=== PATIENT | male | born 1935 | race Caucasian/White ===

== ENCOUNTER 2017-07-11 15:36 | Inpatient (IN) | payer MEDICARE, OTHER, SELFPAY ==
[2017-07-11] VITALS (8 sets, daily range): BP systolic 112–128; BP diastolic 76–89; PULSE 58–86; RESP 19–30; TEMP 36.6–36.8; O2SAT 92–94; BMI 38.4
--- NOTE | 2017-07-11 16:20 | RAD_ITS ---
STUDY: X-RAY CHEST REASON FOR EXAM: Male, 82 years old. Productive cough with rales. History of pulmonary fibrosis. TECHNIQUE: Frontal and lateral views of the chest. COMPARISON: June 03, 2017 FINDINGS: There is a patchy opacity in the right upper lobe compatible with pneumonia. There is stable elevation of the right hemidiaphragm with atelectasis and hyperexpansion of the left lung unchanged. There is no demonstrated pleural abnormality. There is stable cardiomegaly with sternotomy wires and cardiac pacer. Normal mediastinum and zhao. Normal visualized pulmonary arteries. There is atherosclerotic calcification of the aortic arch with tortuosity unchanged. There are diffuse degenerative changes of the visualized thoracic spine. Normal visualized ribs, clavicles, and shoulders. There is no demonstrated abnormality of the visualized soft tissue structures of the upper abdomen. RAD/Chest PA and Lateral IMPRESSION: Stable cardiomegaly, elevation of the left hemidiaphragm with atelectasis and hyperexpansion of the left lung. New right upper lobe opacity compatible with pneumonia. Electronically Signed: Bhupendra Hodge MD at 16:40 EST , Service support ,
--- NOTE | 2017-07-11 16:31 | ED.VISSUMM ---
- ER Visit Summary Date of Service: 07/11/17 Chief Complaint: Increased shortness of breath History of Present Illness: The patient is a 82 M is admitted prior to [place] for respiratory distress and diagnosed with rhinovirus. He was discharged home on oxygen. He does have significant pulmonary fibrosis and his certified rehabilitation counselor Dr. Jed Davis. He does complain of cough, which is productive of white colored sputum. He denies any fever, chills night sweats. He denies any visual, ocular or auditory symptoms. He denies sore throat, earache or rhinorrhea. He denies any chest discomfort. He has no GI or symptoms. He denies myalgias or arthralgias. He denies headache or generalized weakness. He is on Coumadin but does not report report bruising easily or problems with bleeding. He is on Coumadin secondary to prior DVT. Past history significant for coronary disease, prostate cancer, type 2 diabetes, hypercholesterolemia, end stage renal disease (stage III), pulmonary hypertension, hypothyroidism and peripheral vascular disease. He is status post four-vessel coronary bypass surgery and prostatectomy. Physical Examination: Patient is tachypnic. He is not hypoxic on oxygen. He is overweight with a BMI of 38.4. HEENT exam is unremarkable. Lungs reveal crackles bilaterally. He informed me that Dr. pelletier stated his lungs were clear on Friday. Heart is regular without murmur, gallop or rub. Abdomen is prominent with positive bowel sounds and no tenderness. He does have mild edema the lower extremities. Neuro exam is nonfocal. Test Results: Two-view chest x-ray was obtained and interpreted by me as unchanged from June 03, 2017. The film is underpenetrated comparison to the film obtained and May. Dual wire pacemaker noted on right. There are sternal wires and multiple clips noted. The film is slightly rotated as well. CBC is unremarkable. BMP is marked for creatinine 1.67. INR is 1.8. Emergency Department Course and Treatment: Will obtain chest x-ray, EKG, and appropriate blood work to evaluate his dyspnea and productive cough. Treatment Plan: I was informed that patient desaturated when he ambulated. He is O2 sat dropped to 87%. Since he is chronically on oxygen he was instructed increased from 3 L to 5 L with activity. Disposition: Discharged to home with spouse Impression: Dyspnea on exertion secondary to recent pulmonary infection History of coronary disease History of end-stage renal disease, stage III History of obstructive sleep apnea History of pulmonary hypertension History of diabetes, type II This note was generated with Kiio dictation software. It may contain incorrect words, spelling, and punctuation that were not noted in review of the chart prior to signing ED Disposition - Plan for ED Patient: Disposition: Home or Assisted Living Chief Complaint: Shortness of Breath Instructions: ED Dyspnea Shortness of Breath Referrals: Fast,Anna, DO [Primary Care Provider] - 3-5 Days if not improving Additional Instructions: Increase oxygen from 3 L at rest to 5 L with activity
[2017-07-11 16:34] LABS: International Normalized Ratio 1.8; Prothrombin Time (Protime)PT. 19.9 SECONDS (11.7-14.9)
--- NOTE | 2017-07-11 16:36 | ED.DCSUM_ITS ---
- ER Visit Summary Date of Service: 07/11/17 Chief Complaint: Increased shortness of breath History of Present Illness: The patient is a 82 M is admitted prior to [place] for respiratory distress and diagnosed with rhinovirus. He was discharged home on oxygen. 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 Jed Davis. He does complain of cough, which is productive of white colored sputum. He denies any fever, chills night sweats. He denies any visual, ocular or auditory symptoms. He denies sore throat, earache or rhinorrhea. He denies any chest discomfort. He has no GI or symptoms. He denies myalgias or arthralgias. He denies headache or generalized weakness. He is on Coumadin but does not report report bruising easily or problems with bleeding. He is on Coumadin secondary to prior DVT. Past history significant for coronary disease, prostate cancer, type 2 diabetes , hypercholesterolemia, end stage renal disease (stage III), pulmonary hypertension, hypothyroidism and peripheral vascular disease. He is status post four-vessel coronary bypass surgery and prostatectomy. Physical Examination: Patient is tachypnic. He is not hypoxic on oxygen. He is overweight with a BMI of 38.4. HEENT exam is unremarkable. Lungs reveal crackles bilaterally. He informed me that Dr. pelletier stated his lungs were clear on Friday. Heart is regular without murmur, gallop or rub. Abdomen is prominent with positive bowel sounds and no tenderness. He does have mild edema the lower extremities. Neuro exam is nonfocal. Test Results: Two-view chest x-ray was obtained and interpreted by me as unchanged from June 03, 2017. The film is underpenetrated comparison to the film obtained and May. Dual wire pacemaker noted on right. There are sternal wires and multiple clips noted. The film is slightly rotated as well. CBC is unremarkable. BMP is marked for creatinine 1.67. INR is 1.8. Emergency Department Course and Treatment: Will obtain chest x-ray, EKG, and appropriate blood work to evaluate his dyspnea and productive cough. Treatment Plan: I was informed that patient desaturated when he ambulated. He is O2 sat dropped to 87%. Since he is chronically on oxygen he was instructed increased from 3 L to 5 L with activity. Disposition: Discharged to home with spouse Impression: Dyspnea on exertion secondary to recent pulmonary infection History of coronary disease History of end-stage renal disease, stage III History of obstructive sleep apnea History of pulmonary hypertension History of diabetes, type II This note was generated with Precipio dictation software. It may contain incorrect words, spelling, and punctuation that were not noted in review of the chart prior to signing ED Disposition - Plan for ED Patient: Disposition: Home or Assisted Living Chief Complaint: Shortness of Breath Instructions: ED Dyspnea Shortness of Breath Referrals: Fast,Anna, DO [Primary Care Provider] - 3-5 Days if not improving Additional Instructions: Increase oxygen from 3 L at rest to 5 L with activity
[2017-07-11 18:09] LABS: Absolute Lymphocyte Count 1.66 X10^3/ul (0.83-4.51); Absolute Neutrophil Count 6.3 X10^3/uL (2.0-7.7); Basophil# 0.01 X10^3/uL; Basophil% 0.1 % (0-1); Eosinophil# 0.04 X10^3/uL; Eosinophils% 0.4 % (0-5); Hematocrit 42.9 % (40-54); Hemoglobin 13.5 g/dl (13.0-16.5); Lymphocyte # 1.66 X10^3/ul (4.0); Lymphocyte % 18.7 % (19-41); Mean Corp Hgb Conc 31.5 g/gl (32-36); Mean Corpuscular Hgb 28.4 pg (27.0-32.0); Mean Corpuscular Volume 90.3 fL (80-94); Mean Platelet Vol. 10.8 fl (6.2-12.0); Monocyte# 0.77 X10^3/uL; Monocyte% 8.7 % (0-10); Neutrophil # 6.33 X10^3/uL (2.7-7.7); Neutrophil % 71.2 % (47-70); POSITIVE COUNT NO; POSITIVE DIFFERENTIAL NO; POSITIVE MORPHOLOGY NO; Platelet Count 116 K/mm3 (150-450); RBC Distribution Width CV 16.4 % (11.6-14.6); RBC Distribution Width SD 54.6 fl (35.1-43.9); Red Blood Count 4.75 M/mm3 (4.6-6.2); White Blood Count 8.9 K/mm3 (4.4-11.0)
[2017-07-11 18:17] LABS: Anion Gap 6 (5-15); BUN 31 mg/dL (7-18); BUN/Creat Ratio 18.6 RATIO (10-20); Calcium,Total 8.3 mg/dL (8.5-10.1); Chloride 103 mmol/L (98-107); Creatinine, Serum 1.67 mg/dL (0.70-1.30); EST Glomerular Filtration Rate 42 mL/min (>60); Est Glom Filt Rate - Afr Amer 51 mL/min (>60); Estimated Creatinine Clearance 31.84 ml/min; Glucose 100 mg/dL (70-110); Sodium Level 139 mmol/L (136-145)
--- NOTE | 2017-07-11 19:28 | NURSING ---
[PT ASSISTED UP TO THE BEDSIDE TO URINATE IN URINAL, PT SOB WORSENED AND O2 SAT DROPPED TO 86%. DR. VELAZQUEZ AWARE
--- NOTE | 2017-07-11 22:33 | PCM.HP.STD ---
Problem List (1) SOB (shortness of breath) Status: Acute (2) Acute exacerbation of chronic obstructive pulmonary disease Status: Acute (3) Anemia of chronic renal failure, stage 3 (moderate) Status: Acute (4) Rhinovirus Status: Acute (5) Supratherapeutic INR Status: Acute (6) AICD (automatic cardioverter/defibrillator) present Status: Chronic (7) Benign essential hypertension Status: Chronic History of Present Illness Date of Admission: 07/11/17 Chief Complaint: Hypoxic respiratory failure The patient is a 82 year old male w/ past history significant for coronary disease, prostate cancer, type 2 diabetes, hypercholesterolemia, end stage renal disease (stage III), pulmonary hypertension, hypothyroidism and peripheral vascular disease, status post four-vessel coronary bypass surgery and prostatectomy admitted for hypoxic respiratory failure. He was admitted in May for rhinovirus and was discharged home on home oxygen. He has been doing well until a few days ago when he noted worsening SOB. His cough has been unchange and is minimal. SOB has been constant. SOB is severe that it interfered with his ADLs. Nothing made it better or worse. He went to the ED for further workup. Past Medical History Past Medical History (Chronic Problems): Chronic Problems Benign essential hypertension (Chronic) Chronic CHF (Chronic) ef=40% COPD (chronic obstructive pulmonary disease) (Chronic) CAD (coronary artery disease) (Chronic) s/p cabg ef=40% negative stress 01/27 History of DVT (deep vein thrombosis) (Chronic) on coumadin Type II diabetes mellitus (Chronic) Hx of CABG (Chronic) History of prostate cancer (Chronic) HLD (hyperlipidemia) (Chronic) Hypothyroidism (Chronic) AICD (automatic cardioverter/defibrillator) present (Chronic) History of total knee replacement (Chronic) Left ALIVIA (obstructive sleep apnea) (Chronic) PVD (peripheral vascular disease) (Chronic) History of Coumadin therapy (Chronic) Allergies amiodarone Adverse Reaction (Verified 07/11/17 15:37) affects his lungs/breathing azithromycin Adverse Reaction (Verified 07/11/17 15:37) Other PATIENT STATES HE LOST HIS HEARING AND HIS HAIR ceftriaxone sodium [From Rocephin] Adverse Reaction (Verified 07/11/17 15:37) Unknown linezolid [From Zyvox] Adverse Reaction (Verified 07/11/17 22:30) decreased platelets morphine Adverse Reaction (Verified 07/11/17 22:30) agitated tramadol Adverse Reaction (Verified 07/11/17 15:37) interferes with another medication he is on Home Medications: Ambulatory Orders Medication Instructions Recorded Albuterol Aerosols [Ventolin 2.5 mg INHALATION Q6H PRN PRN 06/02/17 Aerosols] Aspirin E.C. [Ecotrin] 81 mg PO DAILY@0800 06/02/17 Benzonatate [Tessalon Perle] 100 mg PO QHS 06/02/17 Budesonide/Formoterol 160/4.5 2 puff INHALATION BID 06/02/17 [Symbicort 160/4.5 Mcg Inhaler (SP)] Carvedilol [Coreg] 12.5 mg PO BID 06/02/17 Clotrimazole [Lotrimin] 1 applicatio TOPICAL Q12H PRN PRN 06/02/17 Dronedarone Hydrochloride [Multaq] 400 mg PO BID 06/02/17 Furosemide [Lasix] 20 mg PO QODAY 06/02/17 Levothyroxine [Synthroid] 75 mcg PO SUMOTUWETHFR 06/02/17 Spironolactone [Aldactone] 25 mg PO DAILY 06/02/17 Vilazodone Hydrochloride [Viibryd] 10 mg PO DAILY 06/02/17 Warfarin [Coumadin] 1.25 mg PO SUTUTHSA 06/02/17 Warfarin [Coumadin] 2.5 mg PO MOWEFR 06/02/17 Clotrimazole 10 mg PO 5X/DAY 07/11/17 Levothyroxine [Synthroid] 150 mcg PO SA 07/11/17 Tiotropium [place] [Spiriva 18 MCG] 1 puff INHALATION DAILY 07/11/17 Venlafaxine HCl [Effexor] 20 mg PO DAILY 07/11/17 Surgical History: coronary bypass surgery, total knee arthroplasty - BL, - - 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 Jennings, PCI/stents, AICD placement Psychiatric History: No pertinent psych hx Smoking Status: Never smoker - *Family History Maternal History Items: No pertinent history Paternal History Items: No pertinent history Review of Systems Constitutional: Denies: Chills, Fever, Weight Change HEENT: Denies: Head Aches, Sinus Congestion, Sinus Drainage Cardiovascular: Denies: Chest Pain, Palpitations Respiratory: Reports: Cough, Shortness of Breath, Shortness of breath at rest. Denies: Sputum production Gastrointestinal: Denies: Abdominal Pain, Nausea, Vomiting Genitourinary: Denies: Dysuria Musculoskeletal: Denies: Joint Pain, Joint Tenderness Skin: Denies: Rash, Wounds Neurological: Denies: Numbness, Tingling, Focal weakness Psychiatric: Denies: Anxiety, Depression, Homicidal Ideations, Suicidal Ideations Hematologic/ Lymphatic: Denies: Easy Bruising, Easy Bleeding VTE Information - Inpt Only VTE Present on Admission: No VTE Mechan Device Prophylaxis: SCD's VTE Pharm Prophylaxis ordered?: Yes Patient Problems: Active and Suspected Problems SOB (shortness of breath) (Acute) - Physical Exam General: Alert, Oriented x3, Cooperative HEENT: Atraumatic, PERRLA, EOMI, Normocephalic Neck: Supple, No JVD, Negative Carotid Bruits Lungs: Diminished, Rales Cardiovascular: Regular rate, No murmurs Abdomen: Bowel Sounds Present, Soft, Non Tender Extremities: No edema, Capillary Refill Less than 3 Seconds Skin: No rashes, No breakdown Musculoskeletal: No Tenderness to Palpation of Joints or Extremities Neurological: Cranial nerves II-XII grossly intact Psych/Mental Status: Normal Affect, Appropriate Vital Signs Temp Pulse Resp BP Pulse Ox 98.2 F 61 20 H 124/82 H 94 07/11/17 15:37 07/11/17 20:42 07/11/17 20:42 07/11/17 20:42 07/11/17 20:42 Oxygen Flow Rate 4 Assessment/Plan Active and Suspected Problems SOB (shortness of breath) (Acute) 82 year old male w/ past history significant for coronary disease, prostate cancer, type 2 diabetes, hypercholesterolemia, end stage renal disease (stage III), pulmonary hypertension, hypothyroidism and peripheral vascular disease, status post four-vessel coronary bypass surgery and prostatectomy admitted for hypoxic respiratory failure. 1) Acute on chronic hypoxic respiratory failure: Most likely secondary to COPD exacerbation. Will start steroid, bronchodilators, and oxygen., Will likely need to increase home oxygen. Consulted pulmonary. Cultures pending. 2) DILIA: Hydration. If no improvement, will consider further workup. 3) Afib: C/w coumadin. Rate controlled. 4) Prophylaxis: Protonix / heparin.
[2017-07-11] MEDS: Albuterol 2.5 MG/3 ML VIAL.NEB. INHALATION (22:55)
[2017-07-11] MEDS: Budesonide Respules 0.5 MG/2 ML AMPUL.NEB. INHALATION (22:55)
[2017-07-12] VITALS (8 sets, daily range): BP systolic 112–125; BP diastolic 64–82; PULSE 57–68; RESP 16–20; TEMP 36.3–36.7; O2SAT 93–96
[2017-07-12] MEDS: 0.9% Normal Saline 1,000 ML 75 ML IV (00:02)
[2017-07-12] MEDS: Benzonatate 100 MG Capsule PO ×2 (00:10→20:59)
[2017-07-12] MEDS: guaiFENesin 1,200 MG Tablet 1200 MG PO ×3 (00:10→20:59)
[2017-07-12] MEDS: Carvedilol 12.5 MG Tablet PO ×3 (00:11→20:59)
[2017-07-12 00:37] LABS: Color, Urine Yellow (Yellow); Glucose, Dipstick Normal (Normal); Ketone-Dipstick Negative (Negative); Leukocyte Esterase-Dipstick 25 /ul (Negative); Nitrite-Dipstick Negative (Negative); Occult Blood-Urine Negative /ul (Negative); Protein-Dipstick 15 mg/dl (Negative); Urine Bilirubin Dipstick Negative (Negative); Urine Clarity Clear (Clear); Urine Urobilinogen Normal (Normal)
[2017-07-12] MEDS: Clotrimazole 10 MG Troche MUCOUS MEM ×6 (00:54→21:00)
[2017-07-12] MEDS: Levothyroxine 75 MCG Tablet 150 MCG PO (06:09)
--- NOTE | 2017-07-12 06:30 | RAD_ITS ---
STUDY: X-RAY CHEST REASON FOR EXAM: Male, 82 years old. Shortness of breath and cough. TECHNIQUE: Single AP portable view of the chest. COMPARISON: 11 July 2017 FINDINGS: Right chest port in place with tip overlying the right atrium and right ventricle. Sternotomy wires remain midline. Surgical clips overlie the bilateral mediastinum. Compared to 2016 with 2018 there is increased areas of patchy airspace disease within the bilateral lungs. Right hemidiaphragm eventration remains. There is no demonstrated pleural abnormality. Normal size heart. Normal mediastinum and zhao. Normal visualized pulmonary arteries. Normal visualized aortic arch and descending thoracic aorta. Normal visualized thoracic spine. Normal visualized ribs, clavicles, and shoulders. There is no demonstrated abnormality of the visualized soft tissue structures of the upper abdomen. RAD/Chest PA and Lateral IMPRESSION: Compared to 11 July 2017 there is increased bilateral patchy airspace disease with otherwise unchanged appearance. Electronically Signed: Corona Orosco DO at 7:21 EST , Service support ,
[2017-07-12] MEDS: Albuterol 2.5 MG/3 ML VIAL.NEB. INHALATION ×3 (07:55→19:13)
[2017-07-12] MEDS: Budesonide Respules 0.5 MG/2 ML AMPUL.NEB. INHALATION ×2 (07:55→19:13)
--- NOTE | 2017-07-12 08:06 | PCM.PROGNOTE ---
Patient Problems: Active and Suspected Problems SOB (shortness of breath) (Acute) Subjective: Patient is an 82-year-old male with a past medical history of hypertension, COPD, cardiomyopathy with a 40% ejection fraction, coronary artery disease (see status post CABG), history of DVT, chronic anticoagulation with warfarin, diabetes mellitus type 2, prostate cancer, hyperlipidemia, hypothyroidism, AICD placement, ALIVIA, PVD, chronic renal failure stage III and chronic respiratory failure with hypoxemia. He was admitted to the hospital in May 2017 with rhinovirus (also had MDR E. Coli in his sputum) and acute exacerbation of COPD. He has a percussion vest at home that he uses 3 times a day for 20 minutes. He states he is compliant with CPAP at night. He presented to the ER at [facility] on 07/11/17 c/o increasing SOB. Chest x-ray showed a right upper lobe infiltrate on 07/11/17 and today shows multilobar infiltrates, can not rule out increased vascular congestion. Lab at admission showed a normal white blood cell count at 8.9 with 72% neutrophils. Platelets were low at 116,000 and hemoglobin was 13.5. INR was subtherapeutic at 1.8. Electrolytes were unremarkable and the BUN was 31 with a creatinine of 1.67. 1.67 is within his baseline. He has been afebrile since admission. Currently 93-94% on 4 L nasal cannula at rest. Legionella and streptococcal antigens in the urine were negative. Influenza swab was negative. Respiratory panel is pending. Gram stain of the sputum showed 2+ white blood cells. He denies sore throat, rhinorrhea, watery eyes, myalgias, arthralgias, nausea or diarrhea and sick contacts. He had a twinge of chest pain on the right and a twinge on the left today which were likely brought on by coughing. He is having sputum mixed with blood. - Physical Exam General: Alert, Oriented x3, Cooperative, No apparent distress - while resting in bed. HEENT: Atraumatic, Normocephalic Oral: Moist Mucosa Neck: Supple, No Nodes, No Nuchal Rigidity, Trachea Midline Lungs: No wheeze, Diminished, Rales - coarse and in both lung bases. Not tachypneic and no accessory muscle use while lying in bed, Rhonchi - in the left upper lung posteriorly that cleared after a cough. Cardiovascular: Regular rate, Regular Rhythm, Normal S1, Normal S2, No rub noted, No Gallop, - - Heart sounds are distant-likely secondary to increased AP diameter of the chest related to severe COPD/pulmonary fibrosis Abdomen: Bowel Sounds Present, Soft, Non Tender, Non-Distended, Obese Extremities: No cyanosis, No edema Skin: No rashes Neurological: Cranial nerves II-XII grossly intact, Neuro grossly intact Psych/Mental Status: Normal Affect, Appropriate Vital Signs Temp Pulse Resp BP Pulse Ox 98.1 F 68 16 118/71 94 07/12/17 04:30 07/12/17 04:30 07/12/17 05:00 07/12/17 04:30 07/12/17 04:30 Oxygen Flow Rate 4 Oxygen Delivery Method Nasal Cannula Weight: 238 lb Body Mass Index (BMI) 38.4 Intake and Output for Last 24 Hours 07/10/17 07/11/17 07/12/17 23:59 23:59 23:59 Intake Total 1091 / 1091 Output Total 250 / 250 Balance 841 / 841 Microbiology Past 72 Hours 07/11/17 22:13 Legionella Antigen - Final Urine, Clean Catch 07/11/17 22:13 Streptococcus pneumoniae Antigen (M - Final Urine, Clean Catch 07/11/17 23:00 Influenza Types A,B Direct FA (CAROL) - Final Mucosa - Nasopharyngeal Laboratory Tests Past 24 Hrs 07/11/17 22:13 Urine Color Yellow Urine Clarity Clear Urine pH 5.0 Ur Specific [place] 1.020 Urine Protein 15 H Urine Glucose (UA) Normal Urine Ketones Negative Urine Occult Blood Negative Urine Nitrite Negative Urine Bilirubin Negative Urine Urobilinogen Normal Ur Leukocyte Esterase 25 H Assessment/Plan Active and Suspected Problems SOB (shortness of breath) (Acute) Impressions 1. acute exacerbation COPD - suspect precipitated by Pneumonia...RUL infiltrate on 07/11 and now with increased patchy infiltrates in several lobes BL. BNP only 140. Grew a MDR E. Coli on his last visit. I suspect he is aspirating. 2. multilobar pneumonia - suspect aspiration vs viral....no viral symptoms however. 3. severe COPD 4. pulmonary fibrosis 5. Cardiomyopathy with a 40% EF 6. Chronic respiratory failure with hypoxemia 7. Thrombocytopenia-new, possibly viral? 8. CAD/history of DVT/chronic anticoagulation/diabetes mellitus type 2/prostate cancer/hyperlipidemia/hypothyroidism/AICD placement/ALIVIA/PVD/chronic renal failure stage III and obesity complicate care, management, recovery and prognosis Start Cefepime since the infiltrates are worse and there are 2+ WBC's in the sputum....he had no rash and no adverse reactions to Cefepime at the admission in mid May Continue aerosolized bronchodilators Recheck PT/INR in the a.m.-no adjustment to Coumadin at this time Continue prednisone 40 mg daily since the patient has no wheezing at the present time Consult speech therapy for swallowing evaluation-suspect he needs a modified barium swallow to rule out silent aspiration Will need ambulatory pulse ox to determine O2 requirement prior to discharge Code Visit Inpatient E&M: 37197 Subs Hosp L2
--- NOTE | 2017-07-12 08:21 | PN_ITS ---
Patient Problems: Active and Suspected Problems SOB (shortness of breath) (Acute) Subjective: Patient is an 82-year-old male with a past medical history of hypertension, COPD , cardiomyopathy with a 40% ejection fraction, coronary artery disease (see status post CABG), history of DVT, chronic anticoagulation with warfarin, diabetes mellitus type 2, prostate cancer, hyperlipidemia, hypothyroidism, AICD placement, ALIVIA, PVD, chronic renal failure stage III and chronic respiratory failure with hypoxemia. He was admitted to the hospital in May 2017 with rhinovirus (also had MDR E. Coli in his sputum) and acute exacerbation of COPD. He has a percussion vest at home that he uses 3 times a day for 20 minutes. He states he is compliant with CPAP at night. He presented to the ER at [facility] on 07/11/17 c/o increasing SOB. Chest x-ray showed a right upper lobe infiltrate on 07/11/17 and today shows multilobar infiltrates, can not rule out increased vascular congestion. Lab at admission showed a normal white blood cell count at 8.9 with 72% neutrophils. Platelets were low at 116,000 and hemoglobin was 13.5. INR was subtherapeutic at 1.8. Electrolytes were unremarkable and the BUN was 31 with a creatinine of 1.67. 1.67 is within his baseline. He has been afebrile since admission. Currently 93-94% on 4 L nasal cannula at rest. Legionella and streptococcal antigens in the urine were negative. Influenza swab was negative. Respiratory panel is pending. Gram stain of the sputum showed 2+ white blood cells. He denies sore throat, rhinorrhea, watery eyes, myalgias, arthralgias, nausea or diarrhea and sick contacts. He had a twinge of chest pain on the right and a twinge on the left today which were likely brought on by coughing. He is having sputum mixed with blood. - Physical Exam General: Alert, Oriented x3, Cooperative, No apparent distress - while resting in bed. HEENT: Atraumatic, Normocephalic Oral: Moist Mucosa Neck: Supple, No Nodes, No Nuchal Rigidity, Trachea Midline Lungs: No wheeze, Diminished, Rales - coarse and in both lung bases. Not tachypneic and no accessory muscle use while lying in bed, Rhonchi - in the left upper lung posteriorly that cleared after a cough. Cardiovascular: Regular rate, Regular Rhythm, Normal S1, Normal S2, No rub noted , No Gallop, - - Heart sounds are distant-likely secondary to increased AP diameter of the chest related to severe COPD/pulmonary fibrosis Abdomen: Bowel Sounds Present, Soft, Non Tender, Non-Distended, Obese Extremities: No cyanosis, No edema Skin: No rashes Neurological: Cranial nerves II-XII grossly intact, Neuro grossly intact Psych/Mental Status: Normal Affect, Appropriate Vital Signs Temp Pulse Resp BP Pulse Ox 98.1 F 68 16 118/71 94 07/12/17 04:30 07/12/17 04:30 07/12/17 05:00 07/12/17 04:30 07/12/17 04:30 Oxygen Flow Rate 4 Oxygen Delivery Method Nasal Cannula Weight: 238 lb Body Mass Index (BMI) 38.4 Intake and Output for Last 24 Hours 07/10/17 07/11/17 07/12/17 23:59 23:59 23:59 Intake Total 1091 / 1091 Output Total 250 / 250 Balance 841 / 841 Microbiology Past 72 Hours 07/11/17 22:13 Legionella Antigen - Final Urine, Clean Catch 07/11/17 22:13 Streptococcus pneumoniae Antigen (M - Final Urine, Clean Catch 07/11/17 23:00 Influenza Types A,B Direct FA (CAROL) - Final Mucosa - Nasopharyngeal Laboratory Tests Past 24 Hrs 07/11/17 22:13 Urine Color Yellow Urine Clarity Clear Urine pH 5.0 Ur Specific [place] 1.020 Urine Protein 15 H Urine Glucose (UA) Normal Urine Ketones Negative Urine Occult Blood Negative Urine Nitrite Negative Urine Bilirubin Negative Urine Urobilinogen Normal Ur Leukocyte Esterase 25 H Assessment/Plan Active and Suspected Problems SOB (shortness of breath) (Acute) Impressions 1. acute exacerbation COPD - suspect precipitated by Pneumonia...RUL infiltrate on 07/11 and now with increased patchy infiltrates in several lobes BL. BNP only 140. Grew a MDR E. Coli on his last visit. I suspect he is aspirating. 2. multilobar pneumonia - suspect aspiration vs viral....no viral symptoms however. 3. severe COPD 4. pulmonary fibrosis 5. Cardiomyopathy with a 40% EF 6. Chronic respiratory failure with hypoxemia 7. Thrombocytopenia-new, possibly viral? 8. CAD/history of DVT/chronic anticoagulation/diabetes mellitus type 2/ prostate cancer/hyperlipidemia/hypothyroidism/AICD placement/ALIVIA/PVD/chronic renal failure stage III and obesity complicate care, management, recovery and prognosis Start Cefepime since the infiltrates are worse and there are 2+ WBC's in the sputum....he had no rash and no adverse reactions to Cefepime at the admission in mid May Continue aerosolized bronchodilators Recheck PT/INR in the a.m.-no adjustment to Coumadin at this time Continue prednisone 40 mg daily since the patient has no wheezing at the present time Consult speech therapy for swallowing evaluation-suspect he needs a modified barium swallow to rule out silent aspiration Will need ambulatory pulse ox to determine O2 requirement prior to discharge Code Visit Inpatient E&M: 50859 Subs Hosp L2
[2017-07-12] MEDS: Aspirin E.C. 81 MG Tablet PO (08:28)
[2017-07-12 09:06] LABS: Hematocrit 41.5 % (40-54); Hemoglobin 13.1 g/dl (13.0-16.5); Mean Corp Hgb Conc 31.6 g/gl (32-36); Mean Corpuscular Hgb 28.5 pg (27.0-32.0); Mean Corpuscular Volume 90.4 fL (80-94); Platelet Count 112 K/mm3 (150-450); RBC Distribution Width CV 16.4 % (11.6-14.6); RBC Distribution Width SD 53.7 fl (35.1-43.9); Red Blood Count 4.59 M/mm3 (4.6-6.2); White Blood Count 8.6 K/mm3 (4.4-11.0)
[2017-07-12 09:08] LABS: Scan Indicated on CBC? Y/N NO
[2017-07-12 09:24] LABS: Anion Gap 7 (5-15); BUN 31 mg/dL (7-18); BUN/Creat Ratio 16.7 RATIO (10-20); Chloride 103 mmol/L (98-107); Creatinine, Serum 1.86 mg/dL (0.70-1.30); EST Glomerular Filtration Rate 37 mL/min (>60); Est Glom Filt Rate - Afr Amer 45 mL/min (>60); Estimated Creatinine Clearance 28.58 ml/min; Glucose 198 mg/dL (70-110); Potassium 3.7 mmol/L (3.5-5.1); Sodium Level 139 mmol/L (136-145)
[2017-07-12 09:36] LABS: BNP,B-Type NATRIURETIC PEPTIDE 140.2 pg/mL (0-100)
--- NOTE | 2017-07-12 10:38 | CASEMGMT ---
Face to Face with patient for initial transition planning/care coordination assessment. RN BIRDIE introduced self and role at [facility], pt voices understanding and consents to assessment at this time. Pt sitting up in bed in no distress at this time. Pt A/O x4 at this time and answers all questions appropriately at this time. Care providers, pharmacy, and demographics verified. See attached link. Pt voices no further concerns/needs at this time. Advised pt to ask for CM if any further questions/concerns/needs arise, voices understanding. CM to follow for any further discharge planning/needs. PLAN: [place] [facility]
[2017-07-12] MEDS: Pantoprazole Sodium 40 MG Tablet PO (11:29)
[2017-07-12] MEDS: Spironolactone 25 MG Tablet PO (11:29)
[2017-07-12] MEDS: Venlafaxine HCl 25 MG Tablet PO ×2 (11:29→20:59)
[2017-07-12] MEDS: 0.9% NaCl VAD Flush 10 ML IV (13:36)
[2017-07-12] MEDS: VILAZODONE HYDROCHLORIDE 10 MG TABLET PO (13:56)
[2017-07-13] VITALS (9 sets, daily range): BP systolic 107–128; BP diastolic 67–75; PULSE 59–81; RESP 16–20; TEMP 36.3–36.6; O2SAT 93–97
[2017-07-13] MEDS: 0.9% NaCl VAD Flush 10 ML IV ×4 (05:28→11:00)
[2017-07-13] MEDS: Levothyroxine 75 MCG Tablet PO (05:29)
[2017-07-13] MEDS: Clotrimazole 10 MG Troche MUCOUS MEM ×5 (05:29→21:45)
[2017-07-13 05:46] LABS: Hematocrit 37.7 % (40-54); Hemoglobin 12.4 g/dl (13.0-16.5); Mean Corp Hgb Conc 32.9 g/gl (32-36); Mean Corpuscular Hgb 29.2 pg (27.0-32.0); Mean Corpuscular Volume 88.9 fL (80-94); Platelet Count 136 K/mm3 (150-450); RBC Distribution Width CV 15.8 % (11.6-14.6); RBC Distribution Width SD 51.2 fl (35.1-43.9); Red Blood Count 4.24 M/mm3 (4.6-6.2); White Blood Count 9.1 K/mm3 (4.4-11.0)
[2017-07-13 05:50] LABS: Scan Indicated on CBC? Y/N NO
[2017-07-13 05:52] LABS: International Normalized Ratio 1.8; Prothrombin Time (Protime)PT. 20.3 SECONDS (11.7-14.9)
[2017-07-13 06:01] LABS: ALB/GLOB Ratio 0.6 RATIO (0.9-2.4); AST(SGOT) 16 U/L (15-37); Alanine Aminotransfer ALT/SGPT 15 U/L (12-78); Alkaline Phosphatase 69 U/L (45-117); Anion Gap 8 (5-15); BUN 29 mg/dL (7-18); BUN/Creat Ratio 20.1 RATIO (10-20); Calcium,Total 7.7 mg/dL (8.5-10.1); Chloride 101 mmol/L (98-107); Creatinine, Serum 1.44 mg/dL (0.70-1.30); EST Glomerular Filtration Rate 50 mL/min (>60); Est Glom Filt Rate - Afr Amer 61 mL/min (>60); Estimated Creatinine Clearance 36.92 ml/min; Globulin 3.4 g/dL (2.2-4.2); Glucose 125 mg/dL (70-110); Magnesium 1.7 mg/dL (1.6-2.6); Phosphorus 2.3 mg/dL (2.5-4.9); Potassium 3.9 mmol/L (3.5-5.1); Protein, Total 5.4 g/dL (6.4-8.2); Sodium Level 136 mmol/L (136-145)
[2017-07-13] MEDS: Albuterol 2.5 MG/3 ML VIAL.NEB. INHALATION ×3 (06:53→18:59)
[2017-07-13] MEDS: Budesonide Respules 0.5 MG/2 ML AMPUL.NEB. INHALATION ×2 (06:54→18:59)
[2017-07-13] MEDS: Aspirin E.C. 81 MG Tablet PO (08:15)
[2017-07-13] MEDS: Spironolactone 25 MG Tablet PO (10:54)
[2017-07-13] MEDS: Carvedilol 12.5 MG Tablet PO ×2 (10:54→21:45)
[2017-07-13] MEDS: guaiFENesin 1,200 MG Tablet 1200 MG PO ×2 (10:55→21:45)
[2017-07-13] MEDS: Furosemide 20 MG Tablet PO (10:55)
[2017-07-13] MEDS: Venlafaxine HCl 25 MG Tablet PO ×2 (10:55→21:45)
[2017-07-13] MEDS: Pantoprazole Sodium 40 MG Tablet PO (10:56)
[2017-07-13] MEDS: VILAZODONE HYDROCHLORIDE 10 MG TABLET PO (10:57)
--- NOTE | 2017-07-13 12:14 | PCM.PROGNOTE ---
Patient Problems: Active and Suspected Problems SOB (shortness of breath) (Acute) Subjective: Patient is an 82-year-old male with a past medical history of hypertension, COPD, cardiomyopathy with a 40% ejection fraction, coronary artery disease (see status post CABG), history of DVT, chronic anticoagulation with warfarin, diabetes mellitus type 2, prostate cancer, hyperlipidemia, hypothyroidism, AICD placement, ALIVIA, PVD, chronic renal failure stage III and chronic respiratory failure with hypoxemia. He presented to the ER at [facility] on 07/11/17 c/o increasing SOB. Chest x-ray showed a right upper lobe infiltrate on 07/11/17 and on 07/12 showed multilobar infiltrates. Sputum Gram stain had 2+ white blood cells and the sputum looks purulent. He states there is no longer hemoptysis today. Still complaining of dyspnea on exertion. Denies chest pain. Pulse ox is 93% on room air at rest today. Vital signs are stable. He has been afebrile since admission. INR is still subtherapeutic at 1.8 today. Creatinine has decreased to 1.44 with some hydration. - Physical Exam General: Alert, Oriented x3, Cooperative, No apparent distress - while at rest HEENT: Atraumatic, PERRLA, EOMI, Normocephalic Oral: Moist Mucosa Neck: No Nodes, Trachea Midline Lungs: No wheeze, Rales, Rhonchi, - - no conversational dyspnea and no accessory muscle use at rest. Cardiovascular: Regular rate, Regular Rhythm, Normal S1, Normal S2, No Gallop Abdomen: Bowel Sounds Present, Soft, Non Tender, Non-Distended Extremities: No cyanosis, No edema Skin: No rashes Neurological: Cranial nerves II-XII grossly intact, Neuro grossly intact Psych/Mental Status: Normal Affect, Appropriate Vital Signs Temp Pulse Resp BP Pulse Ox 98 F 60 20 H 114/67 93 07/13/17 07:59 07/13/17 09:00 07/13/17 09:00 07/13/17 07:59 07/13/17 09:00 Oxygen Flow Rate 3 Oxygen Delivery Method Nasal Cannula Intake and Output for Last 24 Hours 07/11/17 07/12/17 07/13/17 23:59 23:59 23:59 Intake Total 922 / 2013 100 / 100 Output Total 925 / 1175 210 / 210 Balance -3 / 838 -110 / -110 Laboratory Tests Past 24 Hrs 07/13/17 07/13/17 07/13/17 05:35 05:35 05:35 WBC 9.1 RBC 4.24 L Hgb 12.4 L Hct 37.7 L MCV 88.9 MCH 29.2 MCHC 32.9 RDW 15.8 H RDW Differential 51.2 H Plt Count 136 L MPV 10.0 PT 20.3 H INR 1.8 Sodium 136 Potassium 3.9 Chloride 101 Carbon Dioxide 27.0 Anion Gap 8 BUN 29 H Creatinine 1.44 H Estim Creat Clear Calc 36.92 Est GFR (MDRD) Af Amer 61 Est GFR (MDRD) Non-Af 50 L BUN/Creatinine Ratio 20.1 H Glucose 125 H Calcium 7.7 L Phosphorus 2.3 L Magnesium 1.7 Total Bilirubin 0.40 AST 16 ALT 15 Alkaline Phosphatase 69 Total Protein 5.4 L Albumin 2.0 L Globulin 3.4 Albumin/Globulin Ratio 0.6 L Assessment/Plan Active and Suspected Problems SOB (shortness of breath) (Acute) Impressions 1. acute exacerbation COPD - suspect precipitated by Pneumonia...RUL infiltrate on 07/11 and now with increased patchy infiltrates in several lobes BL. BNP only 140. Grew a MDR E. Coli on his last visit. I suspect he is aspirating. 2. multilobar pneumonia - suspect aspiration vs viral....no viral symptoms however. 3. severe COPD 4. pulmonary fibrosis 5. Cardiomyopathy with a 40% EF 6. Chronic respiratory failure with hypoxemia 7. Thrombocytopenia-new, possibly viral? 8. CAD/history of DVT/chronic anticoagulation/diabetes mellitus type 2/prostate cancer/hyperlipidemia/hypothyroidism/AICD placement/ALIVIA/PVD/chronic renal failure stage III and obesity complicate care, management, recovery and prognosis 9. Hypomagnesemia 10. Hypophosphatemia Start Cefepime since the infiltrates are worse and there are 2+ WBC's in the sputum....he had no rash and no adverse reactions to Cefepime at the admission in mid May Continue prednisone 40 mg p.o. daily. Supplement magnesium and phosphorus. Supplement potassium to keep the K around 4 Give 3 mg of warfarin today and change the dosing to 2 mg p.o. daily. Recheck PT/INR, CBC and BMP/mag/phos in the AM Modified barium swallow in the AM Will await the results of the sputum culture prior to DC Percussion vest 3 times daily - discussed with RT Code Visit Inpatient E&M: 26203 Subs Hosp L2
--- NOTE | 2017-07-13 12:31 | PN_ITS ---
Patient Problems: Active and Suspected Problems SOB (shortness of breath) (Acute) Subjective: Patient is an 82-year-old male with a past medical history of hypertension, COPD , cardiomyopathy with a 40% ejection fraction, coronary artery disease (see status post CABG), history of DVT, chronic anticoagulation with warfarin, diabetes mellitus type 2, prostate cancer, hyperlipidemia, hypothyroidism, AICD placement, ALIVIA, PVD, chronic renal failure stage III and chronic respiratory failure with hypoxemia. He presented to the ER at [facility] on 07/11/17 c/o increasing SOB. Chest x-ray showed a right upper lobe infiltrate on 07/11/17 and on 07/12 showed multilobar infiltrates. Sputum Gram stain had 2+ white blood cells and the sputum looks purulent. He states there is no longer hemoptysis today. Still complaining of dyspnea on exertion. Denies chest pain. Pulse ox is 93% on room air at rest today. Vital signs are stable. He has been afebrile since admission. INR is still subtherapeutic at 1.8 today. Creatinine has decreased to 1.44 with some hydration. - Physical Exam General: Alert, Oriented x3, Cooperative, No apparent distress - while at rest HEENT: Atraumatic, PERRLA, EOMI, Normocephalic Oral: Moist Mucosa Neck: No Nodes, Trachea Midline Lungs: No wheeze, Rales, Rhonchi, - - no conversational dyspnea and no accessory muscle use at rest. Cardiovascular: Regular rate, Regular Rhythm, Normal S1, Normal S2, No Gallop Abdomen: Bowel Sounds Present, Soft, Non Tender, Non-Distended Extremities: No cyanosis, No edema Skin: No rashes Neurological: Cranial nerves II-XII grossly intact, Neuro grossly intact Psych/Mental Status: Normal Affect, Appropriate Vital Signs Temp Pulse Resp BP Pulse Ox 98 F 60 20 H 114/67 93 07/13/17 07:59 07/13/17 09:00 07/13/17 09:00 07/13/17 07:59 07/13/17 09:00 Oxygen Flow Rate 3 Oxygen Delivery Method Nasal Cannula Intake and Output for Last 24 Hours 07/11/17 07/12/17 07/13/17 23:59 23:59 23:59 Intake Total 922 / 2013 100 / 100 Output Total 925 / 1175 210 / 210 Balance -3 / 838 -110 / -110 Laboratory Tests Past 24 Hrs 07/13/17 07/13/17 07/13/17 05:35 05:35 05:35 WBC 9.1 RBC 4.24 L Hgb 12.4 L Hct 37.7 L MCV 88.9 MCH 29.2 MCHC 32.9 RDW 15.8 H RDW Differential 51.2 H Plt Count 136 L MPV 10.0 PT 20.3 H INR 1.8 Sodium 136 Potassium 3.9 Chloride 101 Carbon Dioxide 27.0 Anion Gap 8 BUN 29 H Creatinine 1.44 H Estim Creat Clear Calc 36.92 Est GFR (MDRD) Af Amer 61 Est GFR (MDRD) Non-Af 50 L BUN/Creatinine Ratio 20.1 H Glucose 125 H Calcium 7.7 L Phosphorus 2.3 L Magnesium 1.7 Total Bilirubin 0.40 AST 16 ALT 15 Alkaline Phosphatase 69 Total Protein 5.4 L Albumin 2.0 L Globulin 3.4 Albumin/Globulin Ratio 0.6 L Assessment/Plan Active and Suspected Problems SOB (shortness of breath) (Acute) Impressions 1. acute exacerbation COPD - suspect precipitated by Pneumonia...RUL infiltrate on 07/11 and now with increased patchy infiltrates in several lobes BL. BNP only 140. Grew a MDR E. Coli on his last visit. I suspect he is aspirating. 2. multilobar pneumonia - suspect aspiration vs viral....no viral symptoms however. 3. severe COPD 4. pulmonary fibrosis 5. Cardiomyopathy with a 40% EF 6. Chronic respiratory failure with hypoxemia 7. Thrombocytopenia-new, possibly viral? 8. CAD/history of DVT/chronic anticoagulation/diabetes mellitus type 2/ prostate cancer/hyperlipidemia/hypothyroidism/AICD placement/ALIVIA/PVD/chronic renal failure stage III and obesity complicate care, management, recovery and prognosis 9. Hypomagnesemia 10. Hypophosphatemia Start Cefepime since the infiltrates are worse and there are 2+ WBC's in the sputum....he had no rash and no adverse reactions to Cefepime at the admission in mid May Continue prednisone 40 mg p.o. daily. Supplement magnesium and phosphorus. Supplement potassium to keep the K around 4 Give 3 mg of warfarin today and change the dosing to 2 mg p.o. daily. Recheck PT/INR, CBC and BMP/mag/phos in the AM Modified barium swallow in the AM Will await the results of the sputum culture prior to DC Percussion vest 3 times daily - discussed with RT Code Visit Inpatient E&M: [id number] Subs Hosp L2
[2017-07-13] MEDS: Benzonatate 100 MG Capsule PO (21:45)
[2017-07-14] VITALS (8 sets, daily range): BP systolic 107–119; BP diastolic 71–80; PULSE 58–74; RESP 16–20; TEMP 36.3–36.6; O2SAT 92–96
[2017-07-14] MEDS: Clotrimazole 10 MG Troche MUCOUS MEM ×4 (05:06→22:51)
[2017-07-14] MEDS: Levothyroxine 75 MCG Tablet PO (05:06)
[2017-07-14] MEDS: 0.9% NaCl VAD Flush 10 ML IV ×4 (05:07→09:16)
[2017-07-14 05:50] LABS: Hematocrit 39.8 % (40-54); Mean Corp Hgb Conc 32.7 g/gl (32-36); Mean Corpuscular Hgb 28.8 pg (27.0-32.0); Mean Corpuscular Volume 88.1 fL (80-94); Mean Platelet Vol. 10.1 fl (6.2-12.0); Platelet Count 170 K/mm3 (150-450); RBC Distribution Width CV 15.8 % (11.6-14.6); RBC Distribution Width SD 50.3 fl (35.1-43.9); Red Blood Count 4.52 M/mm3 (4.6-6.2); White Blood Count 9.4 K/mm3 (4.4-11.0)
--- NOTE | 2017-07-14 05:55 | RAD_ITS ---
STUDY: X-RAY CHEST REASON FOR EXAM: Male, 82 years old. Aspiration pneumonia TECHNIQUE: PA and lateral views of the chest. COMPARISON: July 12, 2017 chest x-ray FINDINGS: There is a right-sided pacer defibrillator. There are sternotomy wires and midline. There is elevation of the right hemidiaphragm. There is lesser linear density in the left midlung zone and lower lobe since prior study. There is no demonstrated pleural abnormality. Sternal cerclage wires are present from a prior sternotomy. Normal mediastinum and zhao. Normal visualized pulmonary arteries. There is atherosclerotic calcification of the aortic arch with tortuosity. There are diffuse degenerative changes of the visualized thoracic spine. Normal visualized ribs, clavicles, and shoulders. There is layering contrast within the stomach. RAD/Chest PA and Lateral IMPRESSION: Improved aeration of the lungs since prior study. Minimal residual linear density in the left lung suggesting scarring and/or minimal atelectasis. Chronic elevation of the right hemidiaphragm. Layering contrast in the stomach. Likely from recent swallowing study. Electronically Signed: Mariela Hicks MD at 15:05 EST Tel , Service support ,
[2017-07-14 05:56] LABS: Anion Gap 8 (5-15); BUN 28 mg/dL (7-18); BUN/Creat Ratio 19.9 RATIO (10-20); Chloride 100 mmol/L (98-107); Creatinine, Serum 1.41 mg/dL (0.70-1.30); EST Glomerular Filtration Rate 51 mL/min (>60); Est Glom Filt Rate - Afr Amer 62 mL/min (>60); Estimated Creatinine Clearance 37.71 ml/min; Glucose 113 mg/dL (70-110); Magnesium 2.2 mg/dL (1.6-2.6); Phosphorus 3.4 mg/dL (2.5-4.9); Potassium 4.2 mmol/L (3.5-5.1); Sodium Level 136 mmol/L (136-145)
[2017-07-14 06:13] LABS: Scan Indicated on CBC? Y/N NO
[2017-07-14] MEDS: Budesonide Respules 0.5 MG/2 ML AMPUL.NEB. INHALATION ×2 (07:33→19:15)
[2017-07-14] MEDS: Albuterol 2.5 MG/3 ML VIAL.NEB. INHALATION ×2 (07:33→19:14)
[2017-07-14] MEDS: Aspirin E.C. 81 MG Tablet PO (08:30)
[2017-07-14] MEDS: Magnesium Oxide 400 MG Tablet PO (08:30)
[2017-07-14] MEDS: Spironolactone 25 MG Tablet PO (08:31)
[2017-07-14] MEDS: Carvedilol 12.5 MG Tablet PO ×2 (08:31→22:51)
[2017-07-14] MEDS: Venlafaxine HCl 25 MG Tablet PO ×2 (08:31→22:51)
[2017-07-14] MEDS: Pantoprazole Sodium 40 MG Tablet PO (08:31)
[2017-07-14] MEDS: VILAZODONE HYDROCHLORIDE 10 MG TABLET PO (08:31)
--- NOTE | 2017-07-14 10:09 | NURSING ---
REPORT CALLED TO [facility] ON TCU
[2017-07-14] MEDS: guaiFENesin 1,200 MG Tablet 1200 MG PO ×2 (10:43→22:51)
--- NOTE | 2017-07-14 11:13 | CON.PCM_ITS ---
Problem List (1) SOB (shortness of breath) Status: Acute Reason for Consult: pneumonia Consulted by: Dr. Mercado History of Present Illness: The patient is a 82 year old M with h/o COPD, knee replacements, and recurrent issues in the past with NTM skin infection who presented 07/11 with 2-3 days of worsened cough, SOB, and not feeling well. Had dental work one week ago, and took amoxicillin as prophylaxis given knee replacements. Over past few days sputum increased in volume and changed from white to yellow. Denies any aspiration or n/v. No fever or chills. Came to hospital, admitted for COPD, wbc was elevated, and cefepime was started 07/12. Feeling a little better today. Full ROS performed and neg except as noted above. - Medical History Past Medical History (Chronic Problems): Chronic Problems Benign essential hypertension (Chronic) Chronic CHF (Chronic) ef=40% COPD (chronic obstructive pulmonary disease) (Chronic) CAD (coronary artery disease) (Chronic) s/p cabg ef=40% negative stress 01/27 History of DVT (deep vein thrombosis) (Chronic) on coumadin Type II diabetes mellitus (Chronic) Hx of CABG (Chronic) History of prostate cancer (Chronic) HLD (hyperlipidemia) (Chronic) Hypothyroidism (Chronic) AICD (automatic cardioverter/defibrillator) present (Chronic) History of total knee replacement (Chronic) Left ALIVIA (obstructive sleep apnea) (Chronic) PVD (peripheral vascular disease) (Chronic) History of Coumadin therapy (Chronic) Allergies/Adverse Reactions: Allergies amiodarone Adverse Reaction (Verified 07/11/17 15:37) affects his lungs/breathing azithromycin Adverse Reaction (Verified 07/11/17 15:37) Other PATIENT STATES HE LOST HIS HEARING AND HIS HAIR ceftriaxone sodium [From Rocephin] Adverse Reaction (Verified 07/11/17 15:37) Unknown linezolid [From Zyvox] Adverse Reaction (Verified 07/11/17 22:30) decreased platelets morphine Adverse Reaction (Verified 07/11/17 22:30) agitated tramadol Adverse Reaction (Verified 07/11/17 15:37) interferes with another medication he is on Home Medications: Ambulatory Orders Medication Instructions Recorded Albuterol Aerosols [Ventolin 2.5 mg INHALATION Q6H PRN PRN 06/02/17 Aerosols] Aspirin E.C. [Ecotrin] 81 mg PO DAILY@0800 06/02/17 Benzonatate [Tessalon Perle] 100 mg PO QHS 06/02/17 Budesonide/Formoterol 160/4.5 2 puff INHALATION BID 06/02/17 [Symbicort 160/4.5 Mcg Inhaler (SP)] Carvedilol [Coreg] 12.5 mg PO BID 06/02/17 Clotrimazole [Lotrimin] 1 applicatio TOPICAL Q12H PRN PRN 06/02/17 Dronedarone Hydrochloride [Multaq] 400 mg PO BID 06/02/17 Furosemide [Lasix] 20 mg PO QODAY 06/02/17 Levothyroxine [Synthroid] 75 mcg PO SUMOTUWETHFR 06/02/17 Spironolactone [Aldactone] 25 mg PO DAILY 06/02/17 Vilazodone Hydrochloride [Viibryd] 10 mg PO DAILY 06/02/17 Warfarin [Coumadin] 1.25 mg PO SUTUTHSA 06/02/17 Warfarin [Coumadin] 2.5 mg PO MOWEFR 06/02/17 Clotrimazole 10 mg PO 5X/DAY 07/11/17 Levothyroxine [Synthroid] 150 mcg PO SA 07/11/17 Tiotropium [place] [Spiriva 18 MCG] 1 puff INHALATION DAILY 07/11/17 Venlafaxine HCl [Effexor] 20 mg PO DAILY 07/11/17 - Social History SMOKING STATUS:: Former smoker Vital Signs Temp Pulse Resp BP Pulse Ox 97.7 F L 62 18 117/72 92 07/14/17 07:52 07/14/17 07:52 07/14/17 07:52 07/14/17 07:52 07/14/17 08:03 Oxygen Flow Rate 3 Oxygen Delivery Method Nasal Cannula Laboratory Tests Past 24 Hrs 07/14/17 07/14/17 07/14/17 05:15 05:15 05:15 WBC 9.4 RBC 4.52 L Hgb 13.0 Hct 39.8 L MCV 88.1 MCH 28.8 MCHC 32.7 RDW 15.8 H RDW Differential 50.3 H Plt Count 170 MPV 10.1 PT 22.0 H INR 2.0 Sodium 136 Potassium 4.2 Chloride 100 Carbon Dioxide 28.0 Anion Gap 8 BUN 28 H Creatinine 1.41 H Estim Creat Clear Calc 37.71 Est GFR (MDRD) Af Amer 62 Est GFR (MDRD) Non-Af 51 L BUN/Creatinine Ratio 19.9 Glucose 113 H Calcium 8.0 L Phosphorus 3.4 Magnesium 2.2 - Other Studies Radiology: [] reviewed Other Studies: [] Route of nutrition/ use of supplements: [] Nutritional Intake: [] IV Site: [] Monge Catheter: [] - Physical Exam General: Alert, Oriented x3, Cooperative, - - ill appearing HEENT: Atraumatic, PERRLA, EOMI Neck: Supple, No Nodes Lungs: Rhonchi, Short of Breath, Wheezes - worse on R Cardiovascular: Regular rate, Regular Rhythm Abdomen: Bowel Sounds Present, Soft, Non Tender, Non-Distended Skin: No rashes IV Site: Peripheral, without redness Musculoskeletal: No Tenderness to Palpation of Joints or Extremities Neurological: Cranial nerves II-XII grossly intact - Assessment/Plan Antibiotics: [] Assessment/Plan: [] Active and Suspected Problems SOB (shortness of breath) (Acute) CAP with ecoli x2 - concern for aspiration. Wbc improving. Swallow study pending. Cont cefepime as he has tolerated in past, will add po flagyl for anaerobe coverage. No po options based on susceptibility testing. Discharge regimen would likely involve iv cefepime or IM/IV ertapenem. Thank you, will follow, d/w geriatric case manager.
--- NOTE | 2017-07-14 14:00 | SP.MBSS_ITS ---
PRIMARY / SECONDARY DIAGNOSIS: dysphagia (R13.10) REFERRING PHYSICIAN: Dr. Jammie Mercado MD CURRENT DIET: regular textures, thin liquids DENTITION: suboptimal repair, planned upper extractions, lower partial MENTAL STATUS: WNL RESPIRATORY STATUS: O2 at 3L/min via nasal cannula PREVIOUS MODIFIED BARIUM SWALLOW STUDY: none REASON FOR REFERRAL: Patient is an 82 year old male referred for a modified barium swallow (MBS) study to objectively assess the Patients oropharyngeal swallow function under fluoroscopy secondary to the diagnosis of multilobar pneumonia, suspect aspiration vs. viral cause. Patient currently admitted to [facility] due to acute hypoxic respiratory failure with acute chronic obstructive pulmonary disease exacerbation suspected to be precipitated by Pneumonia with initial right upper lobe infiltrate progressing to increased patchy infiltrates in several lobes bilaterally; initially hemoptysis since resolved; brain-type natriuretic peptide (BNP) 140, Patient grew a MDR E. Coli on his last visit; sputum gram stain had 2+ white blood cells and the sputum looks purulent; Physician suspecting Patient is aspirating. Assessment at bedside complicated by baseline moist coughing possibly masking overt signs and symptoms of aspiration. 07/11/2017 CXR revealed stable cardiomegaly, elevation of the left hemidiaphragm with atelectasis and hyperexpansion of the left lung; new right upper lobe opacity compatible with pneumonia. 07/12/2017 CXR revealed increased bilateral patchy airspace disease with otherwise unchanged appearance. MEDICAL HISTORY: Chronic obstructive pulmonary disease, congestive heart failure with ejection fraction of 40%, benign essential hypertension, coronary artery disease status post coronary artery bypass graft, automatic cardioverter/defibrillator) present , hyperlipidemia, deep vein thrombosis, type II diabetes mellitus, obstructive sleep apnea, peripheral vascular disease, hypothyroidism, history of prostate cancer STUDY FINDINGS: Patient participated in a Modified Barium Swallow (MBS) study on 07/14/2017. Dr. Rahman was the radiologist present for this evaluation. This study was recorded in the lateral view and images were sent to PACs for storage. The following consistencies were presented to this patient for analysis of oropharyngeal swallow function: thin liquids, nectar thickened liquids, pudding , and a regular textured, Natasha Doone cookie. Results of the MBS are as follows: PENETRATION / ASPIRATION SCALE (MARIE): 1 = does not enter airway 2 = enters airway/above vocal folds/ejected 3 = enters airway/above vocal folds/not ejected 4 = enters airway/contacts vocal folds/ejected 5 = enters airway/contacts vocal folds/not ejected 6 = enters airway/below vocal folds/ejected 7 = enters airway/below vocal folds/not ejected despite effort 8 = enters airway/below vocal folds/no effort PENETRATION / ASPIRATION SCALE (SCORE): Thin liquid - 5 mL tsp.: 5 Thin liquids via cup (single sip): 2 Thin liquids via cup (single sip): 1 Thin liquids via cup (single sip): 1 Thin liquids via cup (sequential swallows): 4 Thin liquids via straw (single sip): 2 Thin liquids via straw (sequential swallows): 5 Thin liquids via straw (chin tuck): 1 Thin liquids via straw (chin tuck): 5* Thin liquids via straw (chin tuck): 1 Thin liquids via straw (chin tuck): 1 [place] thickened liquids via cup (single sip): 1 [place] thickened liquids via cup (single sip): 1 [place] thickened liquids via cup (single sip): 1 Pudding via spoon: 1 Regular textured cookie: 1 * denotes suboptimal chin tuck execution IMPRESSION: DIAGNOSIS: mild to moderate oropharyngeal dysphagia (R13.12) ORAL PHASE CHARACTERIZED BY: LABIAL SEAL: no labial escape TONGUE CONTROL DURING BOLUS MANIPULATION: intermittent posterior escape of greater than half of bolus with thin liquids BOLUS PREPARATION / MASTICATION: slow prolonged chewing/mashing with complete recollection BOLUS TRANSPORT / LINGUAL MOTION: intermittent delayed initiation of tongue motion ORAL RESIDUE: trace residue lining oral structures PHARYNGEAL PHASE CHARACTERIZED BY: INITIATION OF PHARYNGEAL SWALLOW: bolus head in pyriforms at first hyoid excursion with thin liquids without chin tuck execution; bolus head in valleculae at first hyoid excursion throughout remaining trials SOFT PALATE ELEVATION: no bolus between soft palate and pharyngeal wall LARYNGEAL ELEVATION: complete superior movement of thyroid cartilage with complete approximation of arytenoids cartilage to epiglottic petiole ANTERIOR HYOID EXCURSION: partial anterior movement EPIGLOTTIC MOVEMENT: complete epiglottic inversion LARYNGEAL VESTIBULE CLOSURE AT HEIGHT OF SWALLOW: intermittent incomplete laryngeal vestibule closure with narrow column of air/contrast in laryngeal vestibule PHARYNGEAL STRIPPING WAVE: pharyngeal stripping wave present / complete PHARYNGOESOPHAGEAL SEGMENT OPENING: complete distension and complete duration with no obstruction of flow TONGUE BASE RETRACTION: trace column of contrast between tongue base and posterior pharyngeal wall PHARYNGEAL RESIDUE: trace residue within or on pharyngeal structures ESOPHAGEAL PHASE CHARACTERIZED BY: ESOPHAGEAL BOLUS CLEARANCE IN THE UPRIGHT POSITION: complete clearance; esophageal coating EFFECTS OF TREATMENT STRATEGIES ATTEMPTED: Chin tuck posture = effective Reduced bolus size = effective DIET TEXTURE RECOMMENDATIONS: Will recommend a regular-soft textured, thin liquid diet. COMPENSATORY STRATEGIES RECOMMENDED: Distant supervision, chin tuck, reduced bolus volume, reduced rate of intake, seated upright at 90 degrees during PO intake, medications with liquid chaser or purees as preferred INTERPRETATION OF RESULTS: Patient presents with mild to moderate oropharyngeal dysphagia (R13.12) likely secondary to a combination of presbyphagia and chronic obstructive pulmonary disease. Oral phase primarily marked by mild mastication inefficiency; and suboptimal lingual control resulting in premature bolus loss and intermittent mild oral swallow onset delay. Pharyngeal phase primarily marked by delayed pharyngeal swallow onset timing (mild); reduced closure of the airway during deglutition (mild). All deficits ameliorated with chin tuck execution and bolus volume adjustments. Noted inconsistent laryngeal vestibule pressure generated to expel penetrated material, placing the Patient at higher risk of aspiration with continuous penetration without ejection. RECOMMENDATIONS: Recommend diet texture downgrade to nectar thickened liquids at bedside if unable to sufficiently and consistently establish execution of the chin tuck posture during thin liquid intake via cup or straw. Patient requires intensive skilled speech-language intervention targeting continued diet texture management ; training and implementation of recommended compensatory strategies; and Patient and caregiver training targeting meal preparation / thickened liquid preparation if intolerance of thin liquids / inability to sufficiently establish execution of the chin tuck posture necessitating downgrade to nectar thickened liquids is appreciated prior to discharge. ADDITIONAL COMMENTS/RECOMMENDATIONS: Results and recommendations were discussed with the Patient immediately following MBS completion, with the Patient verbalizing understanding and agreement with all recommendations and education provided. IMAGE COUNT: [id number]
--- NOTE | 2017-07-14 14:00 | RAD_ITS ---
STUDY: SWALLOWING STUDY REASON FOR EXAM: Male, 82 years old. Possible aspiration. TECHNIQUE: The examination was performed with Speech Pathology in attendance. Under fluoroscopic observation, the patient ingested thin barium, thick barium, barium pudding, and barium coated cracker. FLUOROSCOPY TIME: 3:07 minutes/seconds. 2422 fluoroscopic images. RADIOLOGIST INVOLVEMENT: Radiologist was present and providing direct supervision. COMPARISON: None. FINDINGS: The following was observed during swallowing of the various mixtures of barium: Thin Barium: Penetration with evacuation with ingestion of thin liquids. This improved with the chin tuck maneuver. Thick Barium: There was no evidence of aspiration or laryngeal penetration. Barium Pudding: There was no evidence of aspiration or laryngeal penetration. Barium Coated Cracker: There was no evidence of aspiration or laryngeal penetration. RAD/Swallowing Function w/Video IMPRESSION: Penetration with evacuation with the ingestion of thin liquids. This improved with the chin tuck maneuver. The swallow study findings were discussed with the patient by the speech pathologist at the conclusion of the examination. Please see speech pathology report for more information and recommendations. Electronically Signed: Zi Rahman MD at 15:07 EST Tel [phone], Service support ,
[2017-07-14] MEDS: metroNIDAZOLE 500 MG Tablet PO ×2 (14:46→22:51)
--- NOTE | 2017-07-14 16:36 | CHAPLAIN ---
Type of Pastoral Visit _x__ Initial Visit ___ Follow-up Visit ___ On-call Visit ___ General Patient Visit ___ Spiritual Assessment ___ Family Conference ___ Bereavement ___ Rapid Response ___ Code Blue ___ Other (describe below) Pastoral Care Referral From _x__ Patient ___ Family ___ Nurse ___ Physician ___ Genetics Physician ___ Agency Trainer ___ Other (describe below) Sacrament/Intervention x___ Active listening ___ Anointing ___ Pentecostalism ___ Bereavement ___ Communion x___ Wendy exploration ___ x___ Life review x___ Prayer ___ Reconciliation ___ Sacrament of Sick x___ Supportive presence ___ Wedding ___ Other (describe below) Pastoral Comments
--- NOTE | 2017-07-14 19:44 | PN_ITS ---
Patient Problems: Active and Suspected Problems SOB (shortness of breath) (Acute) Subjective: Currently afebrile. Vital signs are stable. He is 93% saturated on a 3 LPM NC. Patient did have penetration of thin liquids on modified barium swallow which was ameliorated with chin tuck. There is an extensive note by the speech therapist and he recommends continued speech therapy and downgrading to nectar thick if he continues to have trouble being compliant with chin tuck, smaller boluses and eating upright at 90 degrees. Sputum culture is once again positive for E. coli but now there are 2 different varieties. There are no oral options for treatment and he will need cefepime at discharge. I did review Dr. Sahu's consult and appreciate his input. Chest x-ray today shows good improvement in bilateral infiltrates which I suspect were due to aspiration. States he is feeling much better today. His cough is greatly diminished. I discussed the results of the modified barium swallow with him and he understands. - Physical Exam General: Alert, Oriented x3, Cooperative HEENT: Atraumatic, PERRLA, EOMI, Normocephalic Oral: Moist Mucosa Neck: Trachea Midline Lungs: Clear to auscultation, No wheeze, No rales, Diminished Cardiovascular: Regular rate, Regular Rhythm, Normal S1, Normal S2, No rub noted , No Gallop Abdomen: Bowel Sounds Present, Soft, Non Tender, Non-Distended Extremities: - - he has shiny skin over the elbows BL with fluid trapped beneath the skin.....no pitting....No IV's in this area so these are not due to infiltrated IV's....has had a lot of steroids in the past and has very thin fragile skin. No erythema and no purulence. No edema of the LE's Skin: No rashes Neurological: Cranial nerves II-XII grossly intact, Neuro grossly intact Psych/Mental Status: Normal Affect, Appropriate Vital Signs Temp Pulse Resp BP Pulse Ox 97.4 F L 60 18 107/71 93 07/14/17 14:43 07/14/17 19:15 07/14/17 19:15 07/14/17 14:43 07/14/17 14:43 Oxygen Flow Rate 3 Oxygen Delivery Method Nasal Cannula Weight: 238 lb Intake and Output for Last 24 Hours 07/12/17 07/13/17 07/14/17 23:59 23:59 23:59 Intake Total 2012 878 / 878 1747 / 1747 Output Total 925 / 1175 1660 / 1660 1500 / 1500 Balance -3 / 838 -782 / -782 247 / 247 Laboratory Tests Past 24 Hrs 07/14/17 07/14/17 07/14/17 05:15 05:15 05:15 WBC 9.4 RBC 4.52 L Hgb 13.0 Hct 39.8 L MCV 88.1 MCH 28.8 MCHC 32.7 RDW 15.8 H RDW Differential 50.3 H Plt Count 170 MPV 10.1 PT 22.0 H INR 2.0 Sodium 136 Potassium 4.2 Chloride 100 Carbon Dioxide 28.0 Anion Gap 8 BUN 28 H Creatinine 1.41 H Estim Creat Clear Calc 37.71 Est GFR (MDRD) Af Amer 62 Est GFR (MDRD) Non-Af 51 L BUN/Creatinine Ratio 19.9 Glucose 113 H Calcium 8.0 L Phosphorus 3.4 Magnesium 2.2 Assessment/Plan Active and Suspected Problems SOB (shortness of breath) (Acute) Impressions 1. acute exacerbation COPD - suspect precipitated by Pneumonia...RUL infiltrate on 07/11 and now with increased patchy infiltrates in several lobes BL. BNP only 140. Grew a MDR E. Coli on his last visit. I suspect he is aspirating. 2. multilobar pneumonia - suspect aspiration vs viral....no viral symptoms however. 3. severe COPD 4. pulmonary fibrosis 5. Cardiomyopathy with a 40% EF 6. Chronic respiratory failure with hypoxemia 7. Thrombocytopenia-new, possibly viral? 8. CAD/history of DVT/chronic anticoagulation/diabetes mellitus type 2/ prostate cancer/hyperlipidemia/hypothyroidism/AICD placement/ALIVIA/PVD/chronic renal failure stage III and obesity complicate care, management, recovery and prognosis 9. Hypomagnesemia 10. Hypophosphatemia Continue cefepime for a total of 10 days - may need to go to an SNF at [place]....will discuss with the SW in the AM. Flagyl was added by Dr. Sahu for additional anaerobic coverage Continue speech therapy/swallowing therapy Taper steroids If the aspiration was from thin liquids penetrating from the mouth I would not expect him to have E. Coli in the sputum. I suspect he has HH with esophageal reflux into the trachea. Will get an UGI with barium swallow in the AM Ambulatory pulse ox in the AM to determine the oxygen needs with exertion The fluid accumulations around the elbow may be due to trauma from using his elbows to push himself up off the bed when lying down
[2017-07-14] MEDS: Benzonatate 100 MG Capsule PO (22:50)
[2017-07-15] VITALS (8 sets, daily range): BP systolic 120–166; BP diastolic 83–99; PULSE 55–78; RESP 16–20; TEMP 36.1–36.6; O2SAT 86–96
--- NOTE | 2017-07-15 05:55 | RAD_ITS ---
STUDY: AIR-CONTRAST UPPER GI SERIES. REASON FOR EXAM: Male, 82 years old. E coli in the sputum. FLUOROSCOPY TIME (if supplied): (0:30) minutes/seconds TECHNIQUE: Limited examination due to the patient's condition. The patient ingested barium. Imaging of the esophagus stomach and duodenum were obtained. COMPARISON: None. FINDINGS: Contrast is seen within the colon from the recent cookie swallow. There is evidence for a small sliding hiatal hernia with gastroesophageal reflux. The remainder of the stomach and duodenum is unremarkable. IMPRESSION: Small sliding hiatal hernia with gastroesophageal reflux. Electronically Signed: Zi Rahman MD at 10:32 EST Tel [phone], Service support , STUDY: X-RAY - ESOPHAGUS (BARIUM SWALLOW) WITH FLUOROSCOPY REASON FOR EXAM: Male, 82 years old. E coli in the sputum. TECHNIQUE: 13 view(s) of the esophagus were obtained following swallowing of barium. FLUOROSCOPY TIME (if supplied): (0:29) minutes/seconds COMPARISON: None. FINDINGS: There is no demonstrated esophageal foreign body. There is no demonstrated stricture or mucosal abnormality. There is a small hiatal hernia of the fundus of the stomach. Gastroesophageal reflux. There is atherosclerotic tortuosity of the aortic arch and descending thoracic aorta. Normal visualized pulmonary parenchyma. There are diffuse degenerative changes of the visualized thoracic spine. RAD/Upper GI w/BA Swallow IMPRESSION: Small sliding hiatal hernia with gastroesophageal reflux. Electronically Signed: Zi Rahman MD at 10:32 EST Tel [phone], Service support ,
[2017-07-15] MEDS: Albuterol 2.5 MG/3 ML VIAL.NEB. INHALATION ×3 (06:45→18:44)
[2017-07-15 09:06] LABS: International Normalized Ratio 2.5; Prothrombin Time (Protime)PT. 26.3 SECONDS (11.7-14.9)
--- NOTE | 2017-07-15 09:24 | NURSING ---
0850-pt off unit via wc for upper gi. 919, just returned to unit
--- NOTE | 2017-07-15 10:10 | PCM.PN.ID ---
Patient Problems: Active and Suspected Problems SOB (shortness of breath) (Acute) Subjective: Feeling better, still some SOB. No fever, no n/v/d. - Physical Exam General: Alert, Cooperative Lungs: Clear to auscultation, Normal air movement Cardiovascular: Regular rate, Regular Rhythm Abdomen: Soft, Non Tender, Non-Distended Extremities: Edema - LUE Skin: No rashes Vital Signs Temp Pulse Resp BP Pulse Ox 97.8 F 55 L 18 166/85 H 93 07/15/17 08:17 07/15/17 08:17 07/15/17 08:17 07/15/17 08:17 07/15/17 08:17 Oxygen Flow Rate 3 Oxygen Delivery Method Nasal Cannula Weight: 107.955 kg Intake and Output for Last 24 Hours 07/13/17 07/14/17 07/15/17 23:59 23:59 23:59 Intake Total 878 / 878 1747 / 1747 800 / 800 Output Total 1660 / 1660 1500 / 1500 1000 / 1000 Balance -782 / -782 247 / 247 -200 / -200 Laboratory Tests Past 24 Hrs 07/15/17 08:45 PT 26.3 H INR 2.5 Route of nutrition/ use of supplements: [] Nutritional Intake: [] IV Site: [] Monge Catheter: [] - Assessment/Plan Antibiotics: [] Assessment/Plan: [] Active and Suspected Problems SOB (shortness of breath) (Acute) CAP with ecoli x2 - concern for aspiration. Wbc improving. Barium swallow study pending. Cont cefepime as he has tolerated in past, added po flagyl for anaerobe coverage. No po options based on susceptibility testing. Will increase cefepime based on improved GFR. If he does not complete as an inpatient, discharge regimen will either be midline placement for iv cefepime q12h with po flagyl or IM/IV ertapenem 1gm qday. Currently day 3 of planned 7 day course. Stop date 07/19/17. will follow
--- NOTE | 2017-07-15 11:11 | NURSING ---
SPOKE WITH , LARRY, SHE WAS ASKING HOW LONG PT WOULD BE ON PREDNISONE. I TOLD HER THAT IS SOMETHING THE DR WOULD HAVE TO ANSWER. TOLD HER I WOULD TRY TO FIND OUT AND EITHER THE DR OR MYSELF WOULD GIVE HER A CALL BACK WHEN ABLE. LARRY ALSO WANTED THE INFECTIOUS DISEASE DOCTOR TO BE AWARE THAT DR MEHTA HAD PREVIOUSLY PUT PT ON CLARITHROMYCIN 500MG PO BID AND SAID HE WOULD NEED TO REMAIN ON IT FOR LIFE. WELL, APPARENTLY, THE PT WAS HAVING A REACTION TO SOMETHING SO IT SOUNDED LIKE THE PCP STARTED STOPPING ONE MED AT A TIME AND THE LAST TIME PT HAD HIS PRESCRIPTION FILLED FOR THE CLARITHROMYCIN WAS IN FEB. DR ARMENTA WAS MADE AWARE OF THIS VIA PHONE CONVERSATION WITH THIS NURSE.
--- NOTE | 2017-07-15 12:19 | CASEMGMT ---
JONATAN PACKER was updated by Dr. Mercado that patient would need IV ATB at discharge. JONATAN PACKER discussed options of home with [facility] for IV ATB and therapy or SNF. Patient understood options and stated he was not making a decision until he spoke with his . JONATAN PACKER will follow-up this afternoon to discuss discharge plans.
--- NOTE | 2017-07-15 13:53 | CPS ---
patient declined vest this am, and at 1300.
--- NOTE | 2017-07-15 14:00 | CASEMGMT ---
JONATAN PACKER spoke with patient and regarding IV ATBs at discharge. Script received from Dr. Mercado. Patient and agreeable to [facility] for IV ATBs and ST and would like [facility]. JONATAN PACKER sent referral to [facility] and will send referral to [facility] to supply ATBs. JONATAN PACKER will continue to follow this patient and plan for a safe discharge.
[2017-07-15] MEDS: Venlafaxine HCl 25 MG Tablet PO ×2 (14:06→22:35)
[2017-07-15] MEDS: Furosemide 20 MG Tablet PO (14:06)
[2017-07-15] MEDS: Pantoprazole Sodium 40 MG Tablet PO (14:06)
[2017-07-15] MEDS: VILAZODONE HYDROCHLORIDE 10 MG TABLET PO (14:06)
[2017-07-15] MEDS: metroNIDAZOLE 500 MG Tablet PO ×2 (14:06→22:35)
[2017-07-15] MEDS: guaiFENesin 1,200 MG Tablet 1200 MG PO ×2 (14:07→22:35)
[2017-07-15] MEDS: Aspirin E.C. 81 MG Tablet PO (14:07)
[2017-07-15] MEDS: Magnesium Oxide 400 MG Tablet PO (14:07)
[2017-07-15] MEDS: Clotrimazole 10 MG Troche MUCOUS MEM ×3 (14:08→22:35)
[2017-07-15] MEDS: 0.9% NaCl VAD Flush 10 ML IV (14:10)
--- NOTE | 2017-07-15 20:07 | PCM.PROGNOTE ---
Subjective: Upper GI with barium swallow today is consistent with hiatal hernia and gastroesophageal reflux. He denies heart burn. He is performing the chin tuck with swallowing as instructed. Feeling much better and is near his baseline per the patient. - Physical Exam General: Alert, Oriented x3, Cooperative Oral: Moist Mucosa Neck: Supple Lungs: Diminished, Wheezes - rare., - - overall the air exchange has improved significantly since admission Cardiovascular: Normal S1, Normal S2, No murmurs, No Gallop Abdomen: Bowel Sounds Present, Soft, Non Tender, Non-Distended Extremities: No cyanosis, No edema Skin: No rashes Psych/Mental Status: Normal Affect, Appropriate Vital Signs Temp Pulse Resp BP Pulse Ox 97.8 F 78 20 H 166/85 H 93 07/15/17 08:17 07/15/17 15:10 07/15/17 15:10 07/15/17 08:17 07/15/17 08:17 Oxygen Flow Rate 3 Oxygen Delivery Method Nasal Cannula Weight: 238 lb Intake and Output for Last 24 Hours 07/13/17 07/14/17 07/15/17 23:59 23:59 23:59 Intake Total 878 / 878 1747 / 1747 1400 / 1400 Output Total 1660 / 1660 1500 / 1500 1400 / 1400 Balance -782 / -782 247 / 247 0 / 0 Laboratory Tests Past 24 Hrs 07/15/17 08:45 PT 26.3 H INR 2.5 Assessment/Plan Impressions 1. acute exacerbation COPD - suspect precipitated by Pneumonia...RUL infiltrate on 07/11 and now with increased patchy infiltrates in several lobes BL. BNP only 140. Grew a MDR E. Coli on his last visit. I suspect he is aspirating. 2. multilobar pneumonia - suspect aspiration vs viral....no viral symptoms however. 3. severe COPD 4. pulmonary fibrosis 5. Cardiomyopathy with a 40% EF 6. Chronic respiratory failure with hypoxemia 7. Thrombocytopenia-new, possibly viral? 8. CAD/history of DVT/chronic anticoagulation/diabetes mellitus type 2/prostate cancer/hyperlipidemia/hypothyroidism/AICD placement/ALIVIA/PVD/chronic renal failure stage III and obesity complicate care, management, recovery and prognosis 9. Hypomagnesemia 10. Hypophosphatemia 11. Hiatal hernia with gastroesophageal reflux-this is likely the cause of recurrent E. coli aspiration pneumonia Antibiotics for a total of [address] Sahu. Discontinue cefepime and start ertapenem once daily for ease of administration at home. His states that she has given intravenous antibiotics at home in the past. Continue speech therapy/swallowing therapy Start Reglan 5 mg p.o. before meals and at bedtime and watch for symptoms of serotonin syndrome or extra pyramidal side effects. Suspect we can discharge on 07/16/2017 Prescription for ertapenem given to the cyber policy and strategy planner Recheck PT/INR in a.m. Ambulatory pulse ox in the a.m. to determine oxygen requirement with exertion. Will need to follow up with Dr. Davis next week Code Visit Inpatient E&M: 38419 Subs Hosp L2
--- NOTE | 2017-07-15 20:15 | PN_ITS ---
Subjective: Upper GI with barium swallow today is consistent with hiatal hernia and gastroesophageal reflux. He denies heart burn. He is performing the chin tuck with swallowing as instructed. Feeling much better and is near his baseline per the patient. - Physical Exam General: Alert, Oriented x3, Cooperative Oral: Moist Mucosa Neck: Supple Lungs: Diminished, Wheezes - rare., - - overall the air exchange has improved significantly since admission Cardiovascular: Normal S1, Normal S2, No murmurs, No Gallop Abdomen: Bowel Sounds Present, Soft, Non Tender, Non-Distended Extremities: No cyanosis, No edema Skin: No rashes Psych/Mental Status: Normal Affect, Appropriate Vital Signs Temp Pulse Resp BP Pulse Ox 97.8 F 78 20 H 166/85 H 93 07/15/17 08:17 07/15/17 15:10 07/15/17 15:10 07/15/17 08:17 07/15/17 08:17 Oxygen Flow Rate 3 Oxygen Delivery Method Nasal Cannula Weight: 238 lb Intake and Output for Last 24 Hours 07/13/17 07/14/17 07/15/17 23:59 23:59 23:59 Intake Total 878 / 878 1747 / 1747 1400 / 1400 Output Total 1660 / 1660 1500 / 1500 1400 / 1400 Balance -782 / -782 247 / 247 0 / 0 Laboratory Tests Past 24 Hrs 07/15/17 08:45 PT 26.3 H INR 2.5 Assessment/Plan Impressions 1. acute exacerbation COPD - suspect precipitated by Pneumonia...RUL infiltrate on 07/11 and now with increased patchy infiltrates in several lobes BL. BNP only 140. Grew a MDR E. Coli on his last visit. I suspect he is aspirating. 2. multilobar pneumonia - suspect aspiration vs viral....no viral symptoms however. 3. severe COPD 4. pulmonary fibrosis 5. Cardiomyopathy with a 40% EF 6. Chronic respiratory failure with hypoxemia 7. Thrombocytopenia-new, possibly viral? 8. CAD/history of DVT/chronic anticoagulation/diabetes mellitus type 2/ prostate cancer/hyperlipidemia/hypothyroidism/AICD placement/ALIVIA/PVD/chronic renal failure stage III and obesity complicate care, management, recovery and prognosis 9. Hypomagnesemia 10. Hypophosphatemia 11. Hiatal hernia with gastroesophageal reflux-this is likely the cause of recurrent E. coli aspiration pneumonia Antibiotics for a total of [address] Sahu. Discontinue cefepime and start ertapenem once daily for ease of administration at home. His states that she has given intravenous antibiotics at home in the past. Continue speech therapy/swallowing therapy Start Reglan 5 mg p.o. before meals and at bedtime and watch for symptoms of serotonin syndrome or extra pyramidal side effects. Suspect we can discharge on 07/16/2017 Prescription for ertapenem given to the estate planner Recheck PT/INR in a.m. Ambulatory pulse ox in the a.m. to determine oxygen requirement with exertion. Will need to follow up with Dr. Davis next week Code Visit Inpatient E&M: 53363 Subs Hosp L2
[2017-07-15] MEDS: Carvedilol 12.5 MG Tablet PO (22:35)
[2017-07-15] MEDS: Benzonatate 100 MG Capsule PO (22:35)
[2017-07-15] MEDS: Metoclopramide 5 MG TABLET PO (22:43)
[2017-07-16] VITALS (7 sets, daily range): BP systolic 111–136; BP diastolic 68–81; PULSE 59–64; RESP 16–20; TEMP 36.4–37; O2SAT 92–97
[2017-07-16] MEDS: Levothyroxine 75 MCG Tablet PO (06:23)
[2017-07-16] MEDS: metroNIDAZOLE 500 MG Tablet PO (06:24)
[2017-07-16] MEDS: Metoclopramide 5 MG TABLET PO ×2 (06:24→11:40)
[2017-07-16] MEDS: Clotrimazole 10 MG Troche MUCOUS MEM ×3 (06:24→14:02)
[2017-07-16] MEDS: Albuterol 2.5 MG/3 ML VIAL.NEB. INHALATION ×2 (06:56→13:19)
[2017-07-16] MEDS: 0.9% NaCl VAD Flush 10 ML IV ×5 (08:00→12:31)
[2017-07-16 08:34] LABS: International Normalized Ratio 2.4
[2017-07-16] MEDS: Magnesium Oxide 400 MG Tablet PO (08:40)
[2017-07-16] MEDS: Aspirin E.C. 81 MG Tablet PO (08:40)
--- NOTE | 2017-07-16 09:19 | CASEMGMT ---
Addendum entered by Ning Delarosa 07/16/17 10:32: Received call from Jennifer at [facility] who stated that everything was good for home IV ATBs. Delivery is planned for today to start IV ATB on 07/17/17 am. JONATAN PACKER to update patient. Original Note: JONATAN PACKER received call back from [facility] regarding IV ATB copay. IV ATB cost is $212.72 and $60 for IV supplies. JONATAN PACKER updated patient regarding cost for IV ATBs, patient voiced understanding and stated it would not be a problem. [facility] has accepted the patient with start of care for 07/17/17. JONATAN PACKER will continue to follow this patient and plan for a safe discharge.
[2017-07-16] MEDS: VILAZODONE HYDROCHLORIDE 10 MG TABLET PO (10:06)
[2017-07-16] MEDS: Venlafaxine HCl 25 MG Tablet PO (10:06)
[2017-07-16] MEDS: Carvedilol 12.5 MG Tablet PO (10:07)
[2017-07-16] MEDS: guaiFENesin 1,200 MG Tablet 1200 MG PO (10:07)
[2017-07-16] MEDS: Spironolactone 25 MG Tablet PO (10:07)
[2017-07-16] MEDS: Pantoprazole Sodium 40 MG Tablet PO (10:08)
--- NOTE | 2017-07-16 10:24 | PCM.PN.ID ---
Patient Problems: Active and Suspected Problems SOB (shortness of breath) (Acute) Subjective: Feeling better, breathing much easier, working with speech therapy. No fever, no n/v/d. - Physical Exam General: Alert, Cooperative, No apparent distress Lungs: Clear to auscultation, Normal air movement Cardiovascular: Regular rate, Regular Rhythm Abdomen: Soft, Non Tender, Non-Distended Skin: No rashes Vital Signs Temp Pulse Resp BP Pulse Ox 97.9 F 60 18 130/73 H 92 07/16/17 08:14 07/16/17 08:14 07/16/17 08:14 07/16/17 08:14 07/16/17 08:14 Oxygen Flow Rate [AMBULATION 3 with Oxygen] Oxygen Flow Rate 3 Oxygen Delivery Method Nasal Cannula Weight: 107.955 kg Intake and Output for Last 24 Hours 07/14/17 07/15/17 07/16/17 23:59 23:59 23:59 Intake Total 1747 / 1747 1400 / 1400 507 / 507 Output Total 1500 / 1500 1400 / 1400 950 / 950 Balance 247 / 247 0 / 0 -443 / -443 Laboratory Tests Past 24 Hrs 07/16/17 07:50 PT 25.0 H INR 2.4 Route of nutrition/ use of supplements: [] Nutritional Intake: [] IV Site: [] Monge Catheter: [] - Assessment/Plan Antibiotics: [] Assessment/Plan: [] Active and Suspected Problems SOB (shortness of breath) (Acute) CAP with ecoli x2 - concern for aspiration. Wbc improving. No po options based on susceptibility testing. Will change to iv ertapenem to be given via port, stop date 07/19/17. Discharge planned for today. will follow, d/w complex case manager. ID follow-up prn.
--- NOTE | 2017-07-16 16:26 | DCINST_ITS ---
- Discharge Diagnoses Current Active Problems: Current Active and Chronic Problems SOB (shortness of breath) (Acute) You will use the following diet at home:: Calorie/Carbohydrate Controlled ( specify 1200, 1400, etc) - carb controlled, low salt and low fat, Cardiac, Other - No caffeine, peppermints or chocolate - these things all increase reflux. Do NOT lie down for 2 hours after eating. Remember to tuck your chin with swallowing. Your food should be the consistency of: Regular Your liquids should be the consistency of: Regular/Thin Discharge Activity: - - Avoid exposure to any strong smells such as bleach, cleaning products, strong colognes or perfumes, paint fumes and smoke of any kind. Avoid sudden exposure to cold air because this can cause bronchospasm. You may want to cover your mouth when you go outside in the winter. Avoid exposure to anyone who is sick with a cough or sore throat. Call your doctor if you observe: Fever of 101 or Higher, Shortness of breath, Dizziness, Fainting spells, Swelling in the ankles, Chest pain, - - agitation, anxiety, inability ot sleep, abnormal movements of your tongue, muscle rigidity Instructions: ED Dyspnea Shortness of Breath, What Is a Hiatal Hernia?, What Is GERD?, Lifestyle Changes for Controlling GERD, Medications for GERD Additional Instructions: You are getting recurrent pneumonias and exacerbations of COPD because you have a hiatal hernia and you are refluxing acid and bacteria from the stomach into the trachea and the lungs. The bacteria that has grown in you sputum the last 2 times I have taken care of you is E. Coli. This is a bacteria that lives in the gastrointestinal tract and is an odd bacteria to grow in the lungs unless you are refluxing. I started you on a medication called Reglan, also known as metoclopramide. This medication helps strip acid out of the esophagus and empty the stomach. There is a potential drug interaction with the been Venlafaxine/Viibryd but you have tolerated it in the hospital with no side effects. I changed the dose of the Coumadin because the INR was subtherapeutic at presentation to the hospital. You should get the INR rechecked in [address] see Dr. Umana. Call Dr. Davis's office and reschedule your appt for the 6 minute walk. You should stay on the 3 LPM oxygen continuously at home for now. Allergies/Adverse Reactions: Allergies amiodarone Adverse Reaction (Verified 07/11/17 15:37) affects his lungs/breathing azithromycin Adverse Reaction (Verified 07/11/17 15:37) Other PATIENT STATES HE LOST HIS HEARING AND HIS HAIR ceftriaxone sodium [From Rocephin] Adverse Reaction (Verified 07/11/17 15:37) Unknown linezolid [From Zyvox] Adverse Reaction (Verified 07/11/17 22:30) decreased platelets morphine Adverse Reaction (Verified 07/11/17 22:30) agitated tramadol Adverse Reaction (Verified 07/11/17 15:37) interferes with another medication he is on Medications to take at Discharge Albuterol Aerosols [Ventolin Aerosols] 2.5 mg INHALATION Q6H PRN PRN 06/02/17 Aspirin E.C. [Ecotrin] 81 mg PO DAILY@0800 06/02/17 Benzonatate [Tessalon Perle] 100 mg PO QHS 06/02/17 Budesonide/Formoterol 160/4.5 [Symbicort 160/4.5 Mcg Inhaler (SP)] 2 puff INHALATION BID 06/02/17 Carvedilol [Coreg] 12.5 mg PO BID 06/02/17 Clotrimazole [Lotrimin] 1 applicatio TOPICAL Q12H PRN PRN 06/02/17 Dronedarone Hydrochloride [Multaq] 400 mg PO BID 06/02/17 Furosemide [Lasix] 20 mg PO QODAY 06/02/17 Levothyroxine [Synthroid] 75 mcg PO SUMOTUWETHFR 06/02/17 Spironolactone [Aldactone] 25 mg PO DAILY 06/02/17 Vilazodone Hydrochloride [Viibryd] 10 mg PO DAILY 06/02/17 Clotrimazole 10 mg PO 5X/DAY 07/11/17 Levothyroxine [Synthroid] 150 mcg PO SA 07/11/17 Tiotropium [place] [Spiriva 18 MCG] 1 puff INHALATION DAILY 07/11/17 Venlafaxine HCl [Effexor] 20 mg PO DAILY 07/11/17 Ertapenem Sod [Invanz] 1 gm IV Q24 #3 vial 07/15/17 Magnesium Oxide [Mag-Ox 400] 400 mg PO DAILYCM #30 tab 07/16/17 Metoclopramide [Metoclopramide HCl] 5 mg PO ACHS #120 tab 07/16/17 Pantoprazole Sodium [Protonix] 20 mg PO BID #60 tab 07/16/17 Warfarin [Coumadin] 2 mg PO DAILY@1700 #30 tab 07/16/17 The following prescriptions were given: Ertapenem Sod [Invanz] 1 gm IV Q24 #3 vial Magnesium Oxide [Mag-Ox 400] 400 mg PO DAILYCM #30 tab Metoclopramide [Metoclopramide HCl] 5 mg PO ACHS #120 tab Warfarin [Coumadin] 2 mg PO DAILY@1700 #30 tab Pantoprazole Sodium [Protonix] 20 mg PO BID #60 tab Primary Care Physician: Anna Umana DO [Primary Care Provider] - 3-5 Days if not improving Please follow up with your Primary Care Physician in: 5-7 days Please Follow Up With: Jed Davis MD When: call the office to reschedule an appt for the 6 minute walk Proposed Discharge Date: 07/16/17
--- NOTE | 2017-07-16 16:37 | PCM.DC.SUM ---
Discharge Date and Diagnosis Date of Admission: 07/11/17 Date of Discharge: 07/16/17 - Primary Discharge Diagnosis Active and Suspected Problems Aspiration pneumonia (Acute) due to E. Coli Subtherapeutic international normalized ratio (INR) (Acute) Acute exacerbation COPD Hypomagnesemia Hypophosphatemia Thrombocytopenia - Secondary Discharge Diagnosis Chronic Problems Hiatal hernia with gastroesophageal reflux (Chronic) Chronic anticoagulation (Chronic) on Warfarin Anemia of chronic renal failure, stage 3 (moderate) (Chronic) Benign essential hypertension (Chronic) Chronic CHF (Chronic) ef=40% COPD (chronic obstructive pulmonary disease) (Chronic) CAD (coronary artery disease) (Chronic) History of DVT (deep vein thrombosis) (Chronic) - on warfarin Type II diabetes mellitus (Chronic) diet controlled Hx of CABG (Chronic) History of prostate cancer (Chronic) HLD (hyperlipidemia) (Chronic) Hypothyroidism (Chronic) AICD (automatic cardioverter/defibrillator) present (Chronic) History of total knee replacement (Chronic) - left ALIVIA (obstructive sleep apnea) (Chronic) PVD (peripheral vascular disease) (Chronic) dysphagia/penetration with thin liquids - ameliorated with [facility] Course and Treatment Imaging Results: Clinical Impression(s) from Imaging Studies Chest X-Ray 07/11/17 16:20 IMPRESSION: Stable cardiomegaly, elevation of the left hemidiaphragm with atelectasis and hyperexpansion of the left lung. New right upper lobe opacity compatible with pneumonia. Electronically Signed: Bhupendra Hodge MD at 16:40 EST , Service support , Chest X-Ray 07/12/17 06:30 IMPRESSION: Compared to 11 July 2017 there is increased bilateral patchy airspace disease with otherwise unchanged appearance. Electronically Signed: Corona Orosco DO at 7:21 EST , Service support , Chest X-Ray 07/14/17 05:55 IMPRESSION: Improved aeration of the lungs since prior study. Minimal residual linear density in the left lung suggesting scarring and/or minimal atelectasis. Chronic elevation of the right hemidiaphragm. Layering contrast in the stomach. Likely from recent swallowing study. Electronically Signed: Mariela Hicks MD at 15:05 EST Tel , Service support , Videofluoroscopic Swallow 07/14/17 14:00 IMPRESSION: Penetration with evacuation with the ingestion of thin liquids. This improved with the chin tuck maneuver. The swallow study findings were discussed with the patient by the speech pathologist at the conclusion of the examination. Please see speech pathology report for more information and recommendations. Electronically Signed: Zi Rahman MD at 15:07 EST Tel [phone], Service support , Upper GI/Barium Swallow X-Ray 07/15/17 05:55 IMPRESSION: Small sliding hiatal hernia with gastroesophageal reflux. Electronically Signed: Zi Rahman MD at 10:32 EST Tel [phone], Service support , Microbiology 07/11/17 23:12 Sputum, Expectorated/Coughed Gram Stain - Final 07/11/17 23:12 Sputum, Expectorated/Coughed Respiratory Culture - Final Escherichia coli#2 Escherichia coli 07/11/17 15:57 Blood Culture (Wb) - Port Blood Culture - Preliminary No growth in 48 hours. 07/11/17 22:13 Urine, Clean Catch Legionella Antigen - Final 07/11/17 22:13 Urine, Clean Catch Streptococcus pneumoniae Antigen (M - Final 07/11/17 23:00 Mucosa - Nasopharyngeal Influenza Types A,B Direct FA (CAROL) - Final Dr. Jed Sahu-infectious disease Operations: None Procedures: - - Modified barium swallow Summary of Care Provided: Patient is an 82-year-old male with a past medical history of hypertension, COPD, cardiomyopathy with a 40% ejection fraction, coronary artery disease (see status post CABG), history of DVT, chronic anticoagulation with warfarin, diabetes mellitus type 2, prostate cancer, hyperlipidemia, hypothyroidism, AICD placement, ALIVIA, PVD, chronic renal failure stage III and chronic respiratory failure with hypoxemia. He was admitted to the hospital in May 2017 with rhinovirus (also had MDR E. Coli in his sputum) and acute exacerbation of COPD. He has a percussion vest at home that he uses 3 times a day for 20 minutes. He states he is compliant with CPAP at night. He presented to the ER at [facility] on 07/11/17 c/o increasing SOB. Chest x-ray showed a right upper lobe infiltrate on 07/11/17 and today shows multilobar infiltrates, can not rule out increased vascular congestion. Lab at admission showed a normal white blood cell count at 8.9 with 72% neutrophils. Platelets were low at 116,000 and hemoglobin was 13.5. INR was subtherapeutic at 1.8. Electrolytes were unremarkable and the BUN was 31 with a creatinine of 1.67. 1.67 is within his baseline. Legionella and streptococcal antigens in the urine were negative. Influenza swab was negative. Chest x-ray done one day following admission showed increased patchy infiltrates in multiple lobes. He was treated with [id number] aerosolized rhonchal dilators, Mucinex, cefepime and high-dose intravenous steroids. Gram stain of the sputum showed 2+ white blood cells. Sputum culture was positive for 2 different E. coli and they are multidrug-resistant. He was treated with cefepime in the hospital. He was seen in consultation by Dr. Sahu from infectious disease. He had a modified barium swallow and had penetration with thin liquids which was ameliorated by chin tuck. An upper GI with barium swallow showed hiatal hernia with reflux. I suspect the aspiration pneumonia is related to reflux rather than mild dysphagia with thin liquids. He was started on Reglan 5 mg before meals and at bedtime and tolerated this well with no side effect. Due to his multiple medical comorbidities he is a poor candidate for surgery for repair of hiatal hernia. Hopefully Reglan and chin tuck will be successful in preventing multiple recurrent admissions for aspiration pneumonia. On the date of discharge his lungs were diminished but had fair air exchange with rare expiratory wheeze. He was discharged on ertapenem 1 g IV every 24 hours to finish 7 days of treatment for aspiration pneumonia. He was given prescriptions for metoclopramide, pantoprazole, Mag-Ox and also a new dose of warfarin. INR was subtherapeutic at admission but at discharge was stable at 2.4. He will follow-up with Dr. pelletier in the office in 3-[address] Davis. This note was generated with [employer] dictation software. It may contain incorrect words, spelling, and punctuation that were not noted in checking the note before signing. Discharge Activity: - - Avoid exposure to any strong smells such as bleach, cleaning products, strong colognes or perfumes, paint fumes and smoke of any kind. Avoid sudden exposure to cold air because this can cause bronchospasm. You may want to cover your mouth when you go outside in the winter. Avoid exposure to anyone who is sick with a cough or sore throat. Call your doctor if you observe: Fever of 101 or Higher, Shortness of breath, Dizziness, Fainting spells, Swelling in the ankles, Chest pain, - - agitation, anxiety, inability ot sleep, abnormal movements of your tongue, muscle rigidity Home Medications: Medications to take at Discharge Albuterol Aerosols [Ventolin Aerosols] 2.5 mg INHALATION Q6H PRN PRN 06/02/17 Aspirin E.C. [Ecotrin] 81 mg PO DAILY@0800 06/02/17 Benzonatate [Tessalon Perle] 100 mg PO QHS 06/02/17 Budesonide/Formoterol 160/4.5 [Symbicort 160/4.5 Mcg Inhaler (SP)] 2 puff INHALATION BID 06/02/17 Carvedilol [Coreg] 12.5 mg PO BID 06/02/17 Clotrimazole [Lotrimin] 1 applicatio TOPICAL Q12H PRN PRN 06/02/17 Dronedarone Hydrochloride [Multaq] 400 mg PO BID 06/02/17 Furosemide [Lasix] 20 mg PO QODAY 06/02/17 Levothyroxine [Synthroid] 75 mcg PO SUMOTUWETHFR 06/02/17 Spironolactone [Aldactone] 25 mg PO DAILY 06/02/17 Vilazodone Hydrochloride [Viibryd] 10 mg PO DAILY 06/02/17 Clotrimazole 10 mg PO 5X/DAY 07/11/17 Levothyroxine [Synthroid] 150 mcg PO SA 07/11/17 Tiotropium [place] [Spiriva 18 MCG] 1 puff INHALATION DAILY 07/11/17 Venlafaxine HCl [Effexor] 20 mg PO DAILY 07/11/17 Ertapenem Sod [Invanz] 1 gm IV Q24 #3 vial 07/15/17 Magnesium Oxide [Mag-Ox 400] 400 mg PO DAILYCM #30 tab 07/16/17 Metoclopramide [Metoclopramide HCl] 5 mg PO ACHS #120 tab 07/16/17 Pantoprazole Sodium [Protonix] 20 mg PO BID #60 tab 07/16/17 Warfarin [Coumadin] 2 mg PO DAILY@1700 #30 tab 07/16/17 Following Prescrptions Were Given to Patient: Ertapenem Sod [Invanz] 1 gm IV Q24 #3 vial Magnesium Oxide [Mag-Ox 400] 400 mg PO DAILYCM #30 tab Metoclopramide [Metoclopramide HCl] 5 mg PO ACHS #120 tab Warfarin [Coumadin] 2 mg PO DAILY@1700 #30 tab Pantoprazole Sodium [Protonix] 20 mg PO BID #60 tab Primary Care Physician: Anna Pelletier, [Primary Care Provider] - 3-5 Days if not improving Please follow up with your Primary Care Physician in: 5-7 days Please Follow Up With: Jed Davis MD When: call the office to reschedule an appt for the 6 minute walk Patient Instructions: What Is GERD?, What Is a Hiatal Hernia?, Lifestyle Changes for Controlling GERD, Medications for GERD, ED Dyspnea Shortness of Breath Meaningful Use Info Meaningful Use Diagnoses (Choose all that apply): None applicable Code Visit Inpatient E&M: [address] [facility]
--- NOTE | 2017-07-16 16:42 | DS.PCM_ITS ---
Discharge Date and Diagnosis Date of Admission: 07/11/17 Date of Discharge: 07/16/17 - Primary Discharge Diagnosis Active and Suspected Problems Aspiration pneumonia (Acute) due to E. Coli Subtherapeutic international normalized ratio (INR) (Acute) Acute exacerbation COPD Hypomagnesemia Hypophosphatemia Thrombocytopenia - Secondary Discharge Diagnosis Chronic Problems Hiatal hernia with gastroesophageal reflux (Chronic) Chronic anticoagulation (Chronic) on Warfarin Anemia of chronic renal failure, stage 3 (moderate) (Chronic) Benign essential hypertension (Chronic) Chronic CHF (Chronic) ef=40% COPD (chronic obstructive pulmonary disease) (Chronic) CAD (coronary artery disease) (Chronic) History of DVT (deep vein thrombosis) (Chronic) - on warfarin Type II diabetes mellitus (Chronic) diet controlled Hx of CABG (Chronic) History of prostate cancer (Chronic) HLD (hyperlipidemia) (Chronic) Hypothyroidism (Chronic) AICD (automatic cardioverter/defibrillator) present (Chronic) History of total knee replacement (Chronic) - left ALIVIA (obstructive sleep apnea) (Chronic) PVD (peripheral vascular disease) (Chronic) dysphagia/penetration with thin liquids - ameliorated with [facility] Course and Treatment Imaging Results: Clinical Impression(s) from Imaging Studies Chest X-Ray 07/11/17 16:20 IMPRESSION: Stable cardiomegaly, elevation of the left hemidiaphragm with atelectasis and hyperexpansion of the left lung. New right upper lobe opacity compatible with pneumonia. Electronically Signed: Bhupendra Hodge MD at 16:40 EST , Service support , Chest X-Ray 07/12/17 06:30 IMPRESSION: Compared to 11 July 2017 there is increased bilateral patchy airspace disease with otherwise unchanged appearance. Electronically Signed: Corona Orosco DO at 7:21 EST , Service support , Chest X-Ray 07/14/17 05:55 IMPRESSION: Improved aeration of the lungs since prior study. Minimal residual linear density in the left lung suggesting scarring and/or minimal atelectasis. Chronic elevation of the right hemidiaphragm. Layering contrast in the stomach. Likely from recent swallowing study. Electronically Signed: Mariela Hicks MD at 15:05 EST Tel , Service support , Videofluoroscopic Swallow 07/14/17 14:00 IMPRESSION: Penetration with evacuation with the ingestion of thin liquids. This improved with the chin tuck maneuver. The swallow study findings were discussed with the patient by the speech pathologist at the conclusion of the examination. Please see speech pathology report for more information and recommendations. Electronically Signed: Zi Rahman MD at 15:07 EST Tel [phone], Service support , Upper GI/Barium Swallow X-Ray 07/15/17 05:55 IMPRESSION: Small sliding hiatal hernia with gastroesophageal reflux. Electronically Signed: Zi Rahman MD at 10:32 EST Tel [phone], Service support , Microbiology 07/11/17 23:12 Sputum, Expectorated/Coughed Gram Stain - Final 07/11/17 23:12 Sputum, Expectorated/Coughed Respiratory Culture - Final Escherichia coli#2 Escherichia coli 07/11/17 15:57 Blood Culture (Wb) - Port Blood Culture - Preliminary No growth in 48 hours. 07/11/17 22:13 Urine, Clean Catch Legionella Antigen - Final 07/11/17 22:13 Urine, Clean Catch Streptococcus pneumoniae Antigen (M - Final 07/11/17 23:00 Mucosa - Nasopharyngeal Influenza Types A,B Direct FA (CRAOL) - Final Dr. Jed Sahu-infectious disease Operations: None Procedures: - - Modified barium swallow Summary of Care Provided: Patient is an 82-year-old male with a past medical history of hypertension , COPD, cardiomyopathy with a 40% ejection fraction, coronary artery disease ( see status post CABG), history of DVT, chronic anticoagulation with warfarin, diabetes mellitus type 2, prostate cancer, hyperlipidemia, hypothyroidism, AICD placement, ALIVIA, PVD, chronic renal failure stage III and chronic respiratory failure with hypoxemia. He was admitted to the hospital in May 2017 with rhinovirus (also had MDR E. Coli in his sputum) and acute exacerbation of COPD. He has a percussion vest at home that he uses 3 times a day for 20 minutes. He states he is compliant with CPAP at night. He presented to the ER at [facility] on 07/11/17 c/o increasing SOB. Chest x-ray showed a right upper lobe infiltrate on 07/11/17 and today shows multilobar infiltrates, can not rule out increased vascular congestion. Lab at admission showed a normal white blood cell count at 8.9 with 72% neutrophils. Platelets were low at 116,000 and hemoglobin was 13.5. INR was subtherapeutic at 1.8. Electrolytes were unremarkable and the BUN was 31 with a creatinine of 1.67. 1.67 is within his baseline. Legionella and streptococcal antigens in the urine were negative. Influenza swab was negative. Chest x-ray done one day following admission showed increased patchy infiltrates in multiple lobes. He was treated with [id number] aerosolized rhonchal dilators, Mucinex, cefepime and high-dose intravenous steroids. Gram stain of the sputum showed 2+ white blood cells. Sputum culture was positive for 2 different E. coli and they are multidrug-resistant. He was treated with cefepime in the hospital. He was seen in consultation by Dr. Sahu from infectious disease. He had a modified barium swallow and had penetration with thin liquids which was ameliorated by chin tuck. An upper GI with barium swallow showed hiatal hernia with reflux. I suspect the aspiration pneumonia is related to reflux rather than mild dysphagia with thin liquids. He was started on Reglan 5 mg before meals and at bedtime and tolerated this well with no side effect. Due to his multiple medical comorbidities he is a poor candidate for surgery for repair of hiatal hernia. Hopefully Reglan and chin tuck will be successful in preventing multiple recurrent admissions for aspiration pneumonia. On the date of discharge his lungs were diminished but had fair air exchange with rare expiratory wheeze. He was discharged on ertapenem 1 g IV every 24 hours to finish 7 days of treatment for aspiration pneumonia. He was given prescriptions for metoclopramide, pantoprazole, Mag-Ox and also a new dose of warfarin. INR was subtherapeutic at admission but at discharge was stable at 2.4. He will follow-up with Dr. pelletier in the office in 3-[address] Davis. This note was generated with [employer] dictation software. It may contain incorrect words, spelling, and punctuation that were not noted in checking the note before signing. Discharge Activity: - - Avoid exposure to any strong smells such as bleach, cleaning products, strong colognes or perfumes, paint fumes and smoke of any kind. Avoid sudden exposure to cold air because this can cause bronchospasm. You may want to cover your mouth when you go outside in the winter. Avoid exposure to anyone who is sick with a cough or sore throat. Call your doctor if you observe: Fever of 101 or Higher, Shortness of breath, Dizziness, Fainting spells, Swelling in the ankles, Chest pain, - - agitation, anxiety, inability ot sleep, abnormal movements of your tongue, muscle rigidity Home Medications: Medications to take at Discharge Albuterol Aerosols [Ventolin Aerosols] 2.5 mg INHALATION Q6H PRN PRN 06/02/17 Aspirin E.C. [Ecotrin] 81 mg PO DAILY@0800 06/02/17 Benzonatate [Tessalon Perle] 100 mg PO QHS 06/02/17 Budesonide/Formoterol 160/4.5 [Symbicort 160/4.5 Mcg Inhaler (SP)] 2 puff INHALATION BID 06/02/17 Carvedilol [Coreg] 12.5 mg PO BID 06/02/17 Clotrimazole [Lotrimin] 1 applicatio TOPICAL Q12H PRN PRN 06/02/17 Dronedarone Hydrochloride [Multaq] 400 mg PO BID 06/02/17 Furosemide [Lasix] 20 mg PO QODAY 06/02/17 Levothyroxine [Synthroid] 75 mcg PO SUMOTUWETHFR 06/02/17 Spironolactone [Aldactone] 25 mg PO DAILY 06/02/17 Vilazodone Hydrochloride [Viibryd] 10 mg PO DAILY 06/02/17 Clotrimazole 10 mg PO 5X/DAY 07/11/17 Levothyroxine [Synthroid] 150 mcg PO SA 07/11/17 Tiotropium Dale [Spiriva 18 MCG] 1 puff INHALATION DAILY 07/11/17 Venlafaxine HCl [Effexor] 20 mg PO DAILY 07/11/17 Ertapenem Sod [Invanz] 1 gm IV Q24 #3 vial 07/15/17 Magnesium Oxide [Mag-Ox 400] 400 mg PO DAILYCM #30 tab 07/16/17 Metoclopramide [Metoclopramide HCl] 5 mg PO ACHS #120 tab 07/16/17 Pantoprazole Sodium [Protonix] 20 mg PO BID #60 tab 07/16/17 Warfarin [Coumadin] 2 mg PO DAILY@1700 #30 tab 07/16/17 Following Prescrptions Were Given to Patient: Ertapenem Sod [Invanz] 1 gm IV Q24 #3 vial Magnesium Oxide [Mag-Ox 400] 400 mg PO DAILYCM #30 tab Metoclopramide [Metoclopramide HCl] 5 mg PO ACHS #120 tab Warfarin [Coumadin] 2 mg PO DAILY@1700 #30 tab Pantoprazole Sodium [Protonix] 20 mg PO BID #60 tab Primary Care Physician: Anna Pelletier, [Primary Care Provider] - 3-5 Days if not improving Please follow up with your Primary Care Physician in: 5-7 days Please Follow Up With: Jed Davis MD When: call the office to reschedule an appt for the 6 minute walk Patient Instructions: What Is GERD?, What Is a Hiatal Hernia?, Lifestyle Changes for Controlling GERD, Medications for GERD, ED Dyspnea Shortness of Breath Meaningful Use Info Meaningful Use Diagnoses (Choose all that apply): None applicable Code Visit Inpatient E&M: 94566 [facility]
--- NOTE | 2017-07-16 17:17 | NURSING ---
REVIEWED DC INSTRUCTIONS W/PT AND . REVIEWED NEW COUMADIN DOSE. STATES IT'S TOO MUCH MONEY TO GET NEW COUMADIN. INSTRUCTED THAT COUMADIN DOESN'T COST MUCH AND WHY PT NEEDS NEW DOSE. STATES SHE WILL MAKE IT WORK.
== END 2017-07-16 17:17 | disposition home health service (06) | DRG 177 ==
LOC: ED 20:45 → MS3 21:11
PROVIDERS: Admitting Provider Internal Medicine; Emergency Provider Emergency Medicine; Family Provider Internal Medicine; PCP Internal Medicine; Visit Provider Internal Medicine
DX: J69.0 Pneumonitis due to inhalation of food and vomit (principal); J96.21 Acute and chronic respiratory failure with hypoxia; D69.6 Thrombocytopenia, unspecified; E11.22 Type 2 diabetes mellitus with diabetic chronic kidney disease; E11.51 Type 2 diabetes mellitus with diabetic peripheral angiopathy without gangrene; E83.39 Other disorders of phosphorus metabolism; N18.3 Chronic kidney disease, stage 3 (moderate); I42.9 Cardiomyopathy, unspecified; J44.1 Chronic obstructive pulmonary disease with (acute) exacerbation; I13.0 Hypertensive heart and chronic kidney disease with heart failure and stage 1 through stage 4 chronic kidney disease, or unspecified chronic kidney disease; E83.42 Hypomagnesemia; Z99.81 Dependence on supplemental oxygen; E66.9 Obesity, unspecified; E03.9 Hypothyroidism, unspecified; G47.33 Obstructive sleep apnea (adult) (pediatric); I25.10 Atherosclerotic heart disease of native coronary artery without angina pectoris; Z95.1 Presence of aortocoronary bypass graft; K21.9 Gastro-esophageal reflux disease without esophagitis; B96.20 Unspecified Escherichia coli [E. coli] as the cause of diseases classified elsewhere; K44.9 Diaphragmatic hernia without obstruction or gangrene; E78.5 Hyperlipidemia, unspecified; D63.1 Anemia in chronic kidney disease; Z96.653 Presence of artificial knee joint, bilateral; I50.9 Heart failure, unspecified; Z68.38 Body mass index [BMI] 38.0-38.9, adult; Z87.891 Personal history of nicotine dependence; Z79.01 Long term (current) use of anticoagulants; R13.10 Dysphagia, unspecified; Z85.46 Personal history of malignant neoplasm of prostate; Z86.718 Personal history of other venous thrombosis and embolism; Z95.810 Presence of automatic (implantable) cardiac defibrillator
CPT/HCPCS: 36591; 71046; 74230; 74246; 80048; 80053; 81002; 83735; 83880; 84100; 85025; 85027; 85610; 87040; 87070; 87077; 87186; 87205; 87449; 87804; 92526; 92610; 92611; 94640; 94667; 94668; 97110; 97116; 97162; 97165; 97530; 99283; J7030; J7050; A4216

== ENCOUNTER → 2017-07-29 15:05 | Outpatient (CLI) | payer MEDICARE, OTHER, SELFPAY ==
--- NOTE | 2017-07-29 15:10 | RAD_ITS ---
STUDY: X-RAY CHEST REASON FOR EXAM: Male, 82 years old. COUGH TECHNIQUE: Frontal and lateral views of the chest. COMPARISON: 07/14/2017 FINDINGS: Chronic appearing increased interstitial lung markings. There is a right sided pacemaker batterypack. Multiple median sternotomy wires are noted consistent for cardiac surgery. There is no demonstrated pleural abnormality. Right lower lobe pneumonia. Enlarged heart size. Normal mediastinum and zhao. Normal visualized pulmonary arteries. There is atherosclerotic calcification of the aortic arch with tortuosity. There are diffuse degenerative changes of the visualized thoracic spine. There is degenerative osteoarthritis of the bilateral shoulders. There is no demonstrated abnormality of the visualized soft tissue structures of the upper abdomen. RAD/Chest PA and Lateral IMPRESSION: Right lower lobe pneumonia. Electronically Signed: David Osullivan MD at 16:28 EST , Service support ,
== END ==
PROVIDERS: Family Provider Internal Medicine; PCP Internal Medicine; Visit Provider Internal Medicine
DX: R05 Cough (principal)
CPT/HCPCS: 71046

== ENCOUNTER → 2017-08-04 14:49 | Outpatient (CLI) | payer MEDICARE, OTHER, SELFPAY ==
--- NOTE | 2017-08-04 14:54 | RAD_ITS ---
STUDY: X-RAY - LEFT FOOT CLINICAL: Male, 82 years old. Pain and bruising following injury. TECHNIQUE: 3 view(s) of the foot. COMPARISON: Comparison is made with prior examination dated March 31, 2014. FINDINGS: There is an enthesophyte involving the posterior superior calcaneus at the site of insertion of the Achilles tendon. Bone cement is seen in the distal tibia. Normal visualized subtalar, talonavicular, calcaneocuboid, tarsal and tarsometatarsal articulations. There is demineralization of the metatarsi. Normal metatarsophalangeal joint of the great toe. Normal tibial and fibular sesamoid bones. There is degenerative arthrosis of the interphalangeal joint of the great toe. Normal phalanges of the great toe. Normal second through fifth metatarsophalangeal joints. 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 Dorsal soft tissue swelling. RAD/Foot min 3 Views IMPRESSION: Demineralization. 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 Dorsal soft tissue swelling. Vascular calcification. Electronically Signed: Zi Rahman MD at 15:16 EST Tel [phone], Service support ,
== END ==
PROVIDERS: Family Provider Internal Medicine; PCP Internal Medicine; Visit Provider Internal Medicine
DX: M79.672 Pain in left foot (principal)
CPT/HCPCS: 73630

== ENCOUNTER → 2017-08-08 13:51 | Outpatient (CLI) | payer MEDICARE, OTHER, SELFPAY ==
[2017-08-08 14:39] VITALS: BP 113/71; PULSE 60; RESP 20; TEMP 36.5; O2SAT 93; BMI 36.9
== END ==
PROVIDERS: Family Provider Internal Medicine; PCP Internal Medicine; Visit Provider Internal Medicine
DX: L03.90 Cellulitis, unspecified (principal)
CPT/HCPCS: 96365; 96366; J7050

== ENCOUNTER 2017-08-09 16:19 | Outpatient (CLI) | payer MEDICARE, OTHER, SELFPAY ==
[2017-08-09 16:57] VITALS: BP 116/77; PULSE 59; RESP 14; TEMP 36.6; O2SAT 96
== END 2017-08-09 18:30 | disposition home or self-care (01) ==
LOC: MEDOUTP 16:22 → PCU 16:26
PROVIDERS: Family Provider Internal Medicine; PCP Internal Medicine; Visit Provider Internal Medicine
DX: L03.90 Cellulitis, unspecified (principal)
CPT/HCPCS: 96365; 96366; J7050

== ENCOUNTER 2017-08-10 13:13 | Outpatient (CLI) | payer MEDICARE, OTHER, SELFPAY ==
[2017-08-10 16:28] VITALS: BP 135/78; PULSE 59; RESP 20; TEMP 36.6; O2SAT 97
[2017-08-10] MEDS: 0.9% NaCl IVPB Med Flush (250 mL) 15 ML IV (16:45)
[2017-08-10] MEDS: 0.9% NaCl VAD Flush 10 ML IV ×2 (16:45→18:46)
[2017-08-10 18:40] VITALS: BP 127/74; PULSE 60; RESP 20; TEMP 36.6; O2SAT 94
--- NOTE | 2017-08-10 19:02 | NURSING ---
184 vanco infusion done. port flushed with saline and heparin. port deaccessed and drsg applied. pt tolerated well. pt to home. taken out via WC. Mandie Silva RN
== END 2017-08-10 19:03 | disposition home or self-care (01) ==
LOC: MEDOUTP 13:16 → MS3 13:18
PROVIDERS: Family Provider Internal Medicine; PCP Internal Medicine; Visit Provider Internal Medicine
DX: L03.90 Cellulitis, unspecified (principal)
CPT/HCPCS: 96365; 96366; 96523; J7050; A4216

== ENCOUNTER → 2017-08-12 13:39 | Outpatient (CLI) | payer MEDICARE, OTHER, SELFPAY ==
[2017-08-12 13:48] VITALS: BP 128/79; PULSE 60; RESP 18; TEMP 36.2; O2SAT 94
[2017-08-12 14:19] LABS: Anion Gap 6 (5-15); BUN 25 mg/dL (7-18); BUN/Creat Ratio 18.8 RATIO (10-20); Calcium,Total 8.2 mg/dL (8.5-10.1); Chloride 106 mmol/L (98-107); Creatinine, Serum 1.33 mg/dL (0.70-1.30); EST Glomerular Filtration Rate 55 mL/min (>60); Est Glom Filt Rate - Afr Amer 66 mL/min (>60); Glucose 82 mg/dL (74-106); Potassium 4.3 mmol/L (3.5-5.1); Sodium Level 139 mmol/L (136-145)
[2017-08-12 14:29] LABS: Vancomycin, Trough Level 13.3 ug/mL (5.0-15.0)
== END ==
PROVIDERS: Family Provider Internal Medicine; PCP Internal Medicine; Visit Provider Internal Medicine
DX: L03.90 Cellulitis, unspecified (principal)
CPT/HCPCS: 96365; 96366; 80048; 80202; J7040; J7050; A4216

== ENCOUNTER → 2017-08-14 13:09 | Outpatient (CLI) | payer MEDICARE, OTHER, SELFPAY ==
[2017-08-14 13:17] VITALS: BP 104/74; PULSE 59; RESP 18; TEMP 36.1; O2SAT 96; BMI 36.3
== END ==
PROVIDERS: Family Provider Internal Medicine; PCP Internal Medicine; Visit Provider Internal Medicine
DX: L03.90 Cellulitis, unspecified (principal)
CPT/HCPCS: 96365; 96366; J7050; A4216

== ENCOUNTER → 2017-09-10 16:42 | Outpatient (CLI) | payer MEDICARE, OTHER, SELFPAY ==
--- NOTE | 2017-09-10 15:00 | VDLE_ITS ---
Reason For Study: LEG PAIN Procedure LEFT Exam performed in department. CFV is compressible, spontaneous, phasic, A preliminary report was called and/or faxed competent, and demonstrates normal to Dr. Evangelista. augmentation. FV is compressible, spontaneous, phasic, competent and demonstrates normal augmentation. POP V is compressible, spontaneous, phasic, competent and demonstrates normal augmentation. T/P Trunk is compressible. PTV is compressible. LT PerV is compressible. GSV harvested. Interpretation Summary Deep veins of the left lower extremity are patent and compressible segmentally. There is no evidence of left lower extremity deep vein thrombosis. Valvular competence appears intact within the proximal deep venous system on the left . The left greater saphenous vein is absent, having been previously harvested. Ordering Physician: Anna Umana Referring Physician: Anna Umana Performed By: Courtney Perez RVT
== END ==
PROVIDERS: Family Provider Internal Medicine; PCP Internal Medicine; Visit Provider Internal Medicine
DX: M79.605 Pain in left leg (principal)
CPT/HCPCS: 93971

== ENCOUNTER 2017-09-11 11:09 | Inpatient (IN) | payer MEDICARE, OTHER, SELFPAY ==
[2017-09-11] VITALS (9 sets, daily range): BP systolic 94–118; BP diastolic 57–68; PULSE 59–104; RESP 16–20; TEMP 36.4–36.8; O2SAT 94–96; BMI 33.9
--- NOTE | 2017-09-11 11:47 | EKG12_ITS ---
Test Reason : WOUND Blood Pressure : / mmHG Vent. Rate : 067 BPM Atrial Rate : 090 BPM P-R Int : 222 ms QRS Dur : 130 ms QT Int : 414 ms P-R-T Axes : 009 -14 149 degrees QTc Int : 437 ms Atrial-paced rhythm with prolonged AV conduction with occasional supraventricular complexes and Rebekah ture atrial complexes Non-specific intra-ventricular conduction block Inferior infarct , age undetermined T wave abnormality, consider lateral ischemia Abnormal ECG Confirmed by WOLF LEONARD, DEBRA ([id number]), editorial director PUNEET VELASCO ([id number]) on 09/15/2017 1:13:53 PM Referred By: Anna Umana Confirmed By:DEBRA BLOOM MD
--- NOTE | 2017-09-11 11:47 | RAD_ITS ---
STUDY: X-RAY CHEST REASON FOR EXAM: Male, 82 years old. Cough. Left foot wound. TECHNIQUE: Single AP upright portable chest view. COMPARISON: None. FINDINGS: No change position right pacemaker/fibrillator battery with multiple contiguous appearing intracardiac leads. Lungs show suboptimal inspiration with moderate elevation right diaphragm noted and diffuse left basal greater than mid lung opacity, may represent atelectasis, pleural fluid or pneumonia. Mild blunting right CP angle is seen suggesting mild atelectasis and pleural fluid. Heart again appears enlarged but left mid to lower cardiac margin is obscured by left lung base diffuse opacity which appears to extend from the base to the mid lung without air bronchograms identified or effacement of the left hemidiaphragm/CP angle. Moderate widening mediastinum appears unchanged without focal mass density seen. No change prominent zhao. No marked enlargement visualized pulmonary arteries. Stable severe aortic knob calcifications. Trachea near midline. No change midline sternal wires and numerous mediastinal/pericardial surgical clips Visualized bones appear intact without acute osseous process identified. There is no demonstrated abnormality of the visualized soft tissue structures of the upper abdomen. No subdiaphragmatic free air seen grossly. RAD/Chest 1 View (Portable) IMPRESSION: Diffuse left lung base greater than mid lung opacities, may represent atelectasis, pleural fluid or pneumonia. No air bronchograms associated. Clinical correlation recommended. If clinically indicated, full inspiratory chest 2 view study may be more helpful. Cardiomegaly as described. No overt cardiac failure status post cardiac thoracic surgery and right pacemaker/defibrillator placement. Electronically Signed: Jed Barrios, at 13:31 EDT Tel , Service support ,
--- NOTE | 2017-09-11 11:52 | ED.DCSUM_ITS ---
- ER Visit Summary Date of Service: 09/11/17 Chief Complaint: [] Left lower extremity foot wound left leg redness History of Present Illness: The patient is a 82 M [] has multiple medical problems including what appears to be a chronic recurring infection involving the left lower extremity that he has had for months indicates he recently completed home antibiotic therapy about 2 weeks ago, and now he has developed a draining lesion to the top of the left foot that is causing redness to streak up his left anterior leg to the level of the knee, in addition he has a history of possible diabetes, heart disease, CABG, pacemaker, MediPort ,COPD chronic cough that are all stable. The persistence of the redness and the draining lesion on the left foot caused him to call the paramedics he was brought to the emergency department Physical Examination: [] He has a dry cough that is chronic for him he is in no distress his blood pressures about 100/80 his mouth is dry his neck is supple he has diminished breath sounds with some rhonchi at the bases the heart tones are distant the abdomen is obese but soft he has a prior left knee replacement surgery scar he has redness from the foot all the way up to the level of the knee he has full range of motion of the knee he has discoloration throughout all 4 extremities considering bruising nontender he relates that to Coumadin, the left lower foot he has a circular lesion that is draining some clear fluid the dorsal aspect of the foot is red and the redness extends up to the level of the knee the ankle is nontender he does have some edema around the lesion but the foot itself shows no signs of crepitance or subcu air, both feet are similarly perfused there is no signs of obvious arterial insufficiency, he denies a history of arterial insufficiency or DVT Test Results: [] Emergency Department Course and Treatment: [] Now indicates he is has been on home antibiotics for periods as long as 5 weeks he just completed a course given all the above White count is 13,000 the x-rays are pending, he lists multiple allergies we did start wound culture and vancomycin and other antibiotics will be started once the allergy picture is clear, spoke with the hospitalist discussed all the above they will check the allergies check the x-rays and will arrange for admission Treatment Plan: [] Disposition: [] Stable admit pending hospitalist evaluation Impression: [] Left lower extremity infection/cellulitis ulcer, multiple medical problems as above This note was generated with [employer] dictation software. It may contain incorrect words, spelling, and punctuation that were not noted in review of the chart prior to signing ED Disposition - Plan for ED Patient: Chief Complaint: Wound Referrals: Anna Umana, [Primary Care Provider] -
--- NOTE | 2017-09-11 12:32 | RAD_ITS ---
STUDY: X-RAY - LEFT FOOT CLINICAL: Male, 82 years old. Seeping chronic wound. TECHNIQUE: 3 view(s) of the foot. COMPARISON: August 04, 2017. FINDINGS: There is generalized osteopenia. Again seen is a focal area of sclerosis in the distal tibia. There is an enthesophyte involving the posterior superior calcaneus at the site of insertion of the Achilles tendon. Normal talus and tarsal bones. There is mild arthrosis of the visualized subtalar, talonavicular, calcaneocuboid, tarsal and tarsometatarsal articulations. Normal metatarsi. Normal metatarsophalangeal joint of the great toe. Normal tibial and fibular sesamoid bones. Normal phalanges of the great toe. Normal second through fifth metatarsophalangeal joints. There is mild arthrosis interphalangeal joints. Again seen is amputation of the third digit at the proximal interphalangeal joint. There is continued mild soft tissue prominence over the forefoot although this appears decreased from the prior study. RAD/Foot min 3 Views IMPRESSION: Slight decrease in soft tissue swelling when compared to prior study. The remainder of the findings appear stable. Electronically Signed: Cody Alcala DO at 13:23 EDT Tel [phone], Service support ,
[2017-09-11 12:38] LABS: Absolute Lymphocyte Count 1.55 X10^3/ul (0.83-4.51); Absolute Neutrophil Count 9.9 X10^3/uL (2.0-7.7); Basophil# 0.01 X10^3/uL; Basophil% 0.1 % (0-1); Eosinophil# 0.03 X10^3/uL; Eosinophils% 0.2 % (0-5); Hematocrit 41.3 % (40-54); Hemoglobin 13.3 g/dl (13.0-16.5); Lymphocyte # 1.55 X10^3/ul (4.0); Lymphocyte % 12.2 % (19-41); Mean Corp Hgb Conc 32.2 g/gl (32-36); Mean Corpuscular Volume 86.9 fL (80-94); Mean Platelet Vol. 9.7 fl (6.2-12.0); Monocyte# 1.16 X10^3/uL; Monocyte% 9.1 % (0-10); Neutrophil # 9.94 X10^3/uL (2.7-7.7); Neutrophil % 78.1 % (47-70); Platelet Count 156 K/mm3 (150-450); RBC Distribution Width CV 16.3 % (11.6-14.6); RBC Distribution Width SD 51.5 fl (35.1-43.9); Red Blood Count 4.75 M/mm3 (4.6-6.2); White Blood Count 12.7 K/mm3 (4.4-11.0)
[2017-09-11 12:40] LABS: POSITIVE COUNT NO; POSITIVE DIFFERENTIAL NO; POSITIVE MORPHOLOGY NO
[2017-09-11 12:44] LABS: International Normalized Ratio 3.3; Prothrombin Time (Protime)PT. 33.7 SECONDS (11.7-14.9)
[2017-09-11 12:51] LABS: Anion Gap 7 (5-15); BUN 41 mg/dL (7-18); BUN/Creat Ratio 25.8 RATIO (10-20); Calcium,Total 7.8 mg/dL (8.5-10.1); Chloride 101 mmol/L (98-107); Creatinine, Serum 1.59 mg/dL (0.70-1.30); EST Glomerular Filtration Rate 45 mL/min (>60); Est Glom Filt Rate - Afr Amer 54 mL/min (>60); Estimated Creatinine Clearance 33.44 ml/min; Glucose 85 mg/dL (74-106); Sodium Level 136 mmol/L (136-145)
--- NOTE | 2017-09-11 13:15 | PCM.HP.STD ---
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 (6) Atrial fibrillation Status: Chronic Qualifiers: Atrial fibrillation type: chronic Qualified Code(s): I48.2 - Chronic atrial fibrillation (7) Cardiac pacemaker in situ Status: Chronic (8) Ventricular tachycardia Status: Chronic (9) Chronic systolic congestive heart failure Status: Chronic (10) H/O percutaneous transluminal coronary angioplasty Status: Chronic (11) Aortocoronary bypass status Status: Chronic Comment: CABG x4-PABLITO to LAD, ZIMMERMAN to DX, SVG to CX, SVG to RCA 1985 (12) Ischemic cardiomyopathy Status: Chronic (13) Benign essential hypertension Status: Chronic (14) Type II diabetes mellitus Status: Chronic Qualifiers: Diabetes mellitus computer scientist insulin use: without computer scientist use Diabetes mellitus complication status: with unspecified complications Qualified Code(s): E11.8 - Type 2 diabetes mellitus with unspecified complications (15) HLD (hyperlipidemia) Status: Chronic Qualifiers: (16) AICD (automatic cardioverter/defibrillator) present Status: Chronic Comment: implantation 04/21; gen change and pocket revision 03/17/13 (17) CKD (chronic kidney disease) stage 3, GFR 30-59 ml/min Status: Chronic (18) Left leg cellulitis Status: Acute (19) Unspecified open wound, left foot, initial encounter Status: Acute History of Present Illness Date of Admission: 09/11/17 Chief Complaint: LLE wound, redness. The patient is a 82 /o M w/ PMHx: CKD stage III (baseline Cr 1.4-1.8), Obesity, ALIVIA, Chronic AF, Hx DVT, Chronic COPD w/ Chronic Hypoxic Respiratory Failure (3L NC), Chronic Systolic CHF, Hx VT, s/p AICD/pacemaker status, CAD s/p CABG x 4 (CABG x4-PABLITO to LAD, ZIMMERMAN to DX, SVG to CX, SVG to RCA 1985) and PCI (PTCA/DO to mid RCA 06/20/04), HTN, HLD, Diabetes mellitus type II who presents to the [facility] ED on 09/11/17 with LLE redness and dorsal L foot wound with history of completion abx therapy ~ 2 weeks (?1-2 week course IV abx therapy, no Wound Cx noted in [facility] as far as organism or sensitivities) prior for this ongoing issue; however, since he has had ongoing drainage from the wound with progressively increasing redness w/ streaking up the leg x 24 hours. In the ED work-up included T 98.1, HR 64, 96/57, RR 19, 96% on 2L NC, CBC w/ WBC 12.7, Hgb 13.3, Plts 156 with L shift, INR 3.3, BMP w/ BUN/Cr 41/1.59, plain film foot and CXR pending upon admission, Wound cx obtained in the ED. 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) Atrial fibrillation (Chronic) Cardiac pacemaker in situ (Chronic) Ventricular tachycardia (Chronic) Chronic systolic congestive heart failure (Chronic) Presence of stent in coronary artery (Chronic ~06/20/04) PTCA/DO to mid RCA 06/20/04 H/O percutaneous transluminal coronary angioplasty (Chronic) 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) CABG x4-PABLITO to LAD, ZIMMERMAN to DX, SVG to CX, SVG to RCA 1985 Atherosclerotic heart disease of [place] coronary artery without angina pectoris (Chronic) CABG x4-PABLITO to LAD, ZIMMERMAN to DX, SVG to CX, SVG to RCA 1985; PTCA/DO to mid RCA 06/20/04 Ischemic cardiomyopathy (Chronic) Benign essential hypertension (Chronic) Type II diabetes mellitus (Chronic) HLD (hyperlipidemia) (Chronic) AICD (automatic cardioverter/defibrillator) present (Chronic) implantation 04/21; gen change and pocket revision 03/17/13 Allergies acetaminophen [From Percocet] Adverse Reaction (Unknown, Verified 09/11/17 11:11) Unknown oxycodone [From Percocet] Adverse Reaction (Unknown, Verified 09/11/17 11:11) Unknown amiodarone Adverse Reaction (Verified 09/11/17 11:11) affects his lungs/breathing azithromycin Adverse Reaction (Verified 09/11/17 11:11) Other PATIENT STATES HE LOST HIS HEARING AND HIS HAIR ceftriaxone sodium [From Rocephin] Adverse Reaction (Verified 09/11/17 11:11) Unknown levofloxacin [From Levaquin] Adverse Reaction (Verified 09/11/17 12:23) Other linezolid [From Zyvox] Adverse Reaction (Verified 09/11/17 11:11) decreased platelets morphine Adverse Reaction (Verified 09/11/17 11:11) agitated tramadol Adverse Reaction (Verified 09/11/17 11:11) interferes with another medication he is on Home Medications: Ambulatory Orders Medication Instructions Recorded Albuterol Aerosols [Ventolin 2.5 mg INHALATION Q6H PRN PRN 06/02/17 Aerosols] Aspirin E.C. [Ecotrin] 81 mg PO DAILY@0800 06/02/17 Benzonatate [Tessalon Perle] 100 mg PO QHS 06/02/17 Carvedilol [Coreg] 12.5 mg PO BID 06/02/17 Clotrimazole [Lotrimin] 1 applicatio TOPICAL BID 06/02/17 Furosemide [Lasix] 20 mg PO QODAY 06/02/17 Spironolactone [Aldactone] 25 mg PO DAILY 06/02/17 Pantoprazole Sodium [Protonix] 20 mg PO BID #60 tab 07/16/17 budesonide-formoterol HFA 160 2 puff INHALATION BID 08/04/17 mcg-4.5 mcg/actuation aerosol inhaler levothyroxine 75 mcg tablet 75 mcg PO .COMPLEX tab 08/04/17 tiotropium bromide 18 mcg capsule 18 mcg INHALATION QDAY 08/06/17 with inhalation device venlafaxine ER 37.5 mg 3 tab PO QDAY cap 08/06/17 capsule,extended release 24 hr warfarin 2.5 mg tablet 2.5 mg PO .COMPLEX 09/02/17 Dronedarone Hydrochloride [Multaq] 400 mg PO BID 09/11/17 Surgical History: coronary bypass surgery, total knee arthroplasty - BL, - - 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 Jennings, PCI/stents, AICD placement Psychiatric History: No pertinent psych hx Lives: Spouse/ Significant Other Smoking Status: Former smoker Tobacco Use: Non-smoker Alcohol: Rare Drugs: None - *Family History Maternal History Items: No pertinent history Paternal History Items: No pertinent history Review of Systems Constitutional: Reports: Anorexia, Malaise, Weakness, Fatigue. Denies: Chills, Fever, Weight Change HEENT: Denies: Head Aches, Sinus Congestion, Sinus Drainage Cardiovascular: Denies: Chest Pain, Palpitations Respiratory: Reports: Shortness of Breath, Shortness of breath upon exertion. Denies: Cough, Shortness of breath at rest, Sputum production Gastrointestinal: Denies: Abdominal Pain, Nausea, Vomiting Genitourinary: Denies: Dysuria Musculoskeletal: Denies: Joint Pain, Joint Tenderness Skin: Reports: Skin Changes, Wounds. Denies: Rash Neurological: Denies: Numbness, Tingling, Focal weakness Psychiatric: Reports: Anxiety, Depression. Denies: Homicidal Ideations, Suicidal Ideations Hematologic/ Lymphatic: Reports: Anemia, Easy Bruising, Easy Bleeding VTE Information - Inpt Only VTE Present on Admission: No VTE Mechan Device Prophylaxis: SCD's VTE Pharm Prophylaxis ordered?: No Reason prophylaxis not ordered:: Treatment Not Indicated - Coumadin w/ INR trending. Patient Problems: Active and Suspected Problems (Last Reviewed 08/06/17 @ 15:23 by Joelle Vega) Left leg cellulitis (Acute) Unspecified open wound, left foot, initial encounter (Acute) Subjective: Seated upright in the ED, NAD, notes having discomfort to the LLE. Objective: Physical Examination: General: awake, alert, oriented x 3 and cooperative, seated upright in the ED bed in no apparent distress. Skin: normal color, turgor, no icterus, cyanosis except diffuse extremity various staged ecchymoses, LLE w/ dorsal foot wound with dorsal pedal edema and erythema extending up the leg primarily anteriorly and laterally. HEENT: AT/NC, EOMI, PERRLA, mildly dry MM, no carotid bruits or JVD noted. Lungs: Diminished BS BL, > bases, mild effort, no rales, ronchi or wheezing. Heart: Regular rate(paced); no gallop, rub audible. Abdomen: soft, obese, NTTP, ND, normal BS, no HSM. Extremities: no cyanosis, clubbing, LLE edema as noted, see skin. Neurological: patient awake, alert, oriented x 3; cognitive function intact; pupils equally reactive to light and accomodation; cranial nerves II-XII grossly normal, moving all 4 extremities, no focal deficits, strength moderately to severely globally decreased secondary to acute presentation. Psychiatric: affect appears fatigued, no acute evidence of depressive or anxiety feelings. - Physical Exam Vital Signs Temp Pulse Resp BP Pulse Ox 97.7 F L 62 20 H 98/62 96 09/11/17 11:11 09/11/17 11:11 09/11/17 11:11 09/11/17 11:11 09/11/17 11:11 Oxygen Flow Rate (L/min) 3 Oxygen Delivery Method Nasal Cannula Weight: 210 lb Body Mass Index (BMI) 33.9 Laboratory Tests Past 24 Hrs 09/11/17 09/11/17 09/11/17 12:20 12:20 12:20 WBC 12.7 H RBC 4.75 Hgb 13.3 Hct 41.3 MCV 86.9 MCH 28.0 MCHC 32.2 RDW 16.3 H RDW Differential 51.5 H Plt Count 156 MPV 9.7 Immature Gran % (Auto) 0.300 Neut % (Auto) 78.1 H Lymph % (Auto) 12.2 L [place] % (Auto) 9.1 Eos % (Auto) 0.2 Baso % (Auto) 0.1 Absolute Neuts (auto) 9.9 H Absolute Lymphs (auto) 1.55 Total Counted Not Reportable PT 33.7 H INR 3.3 Sodium 136 Potassium 4.0 Chloride 101 Carbon Dioxide 28.0 Anion Gap 7 BUN 41 H Creatinine 1.59 H Estim Creat Clear Calc 33.44 Est GFR (MDRD) Af Amer 54 L Est GFR (MDRD) Non-Af 45 L BUN/Creatinine Ratio 25.8 H Glucose 85 Calcium 7.8 L Assessment/Plan Active and Suspected Problems (Last Reviewed 08/06/17 @ 15:23 by Joelle Vega) Left leg cellulitis (Acute) Unspecified open wound, left foot, initial encounter (Acute) The patient is a 82 /o M w/ PMHx: CKD stage III, Obesity, ALIVIA, Chronic AF, Hx DVT, Chronic COPD w/ Chronic Hypoxic Respiratory Failure (3L NC), Chronic Systolic CHF, Hx VT, s/p AICD/pacemaker status, CAD s/p CABG x 4 and PCI, HTN, HLD, Diabetes mellitus type II who presents to the [facility] ED on 09/11/17 with LLE redness and dorsal L foot wound with history of completion abx therapy ~ 2 weeks (?1-2 week course IV abx therapy, no Wound Cx noted in [facility] as far as organism or sensitivities) prior for this ongoing issue; however, since he has had ongoing drainage from the wound with progressively increasing redness w/ streaking up the leg. (1) LLE Dorsal Foot Wound and LLE Extremity Cellulitis: Will admit to [facility], maintain on IV Vanc and Zosyn, request Podiatry and ID Consultation, pending ED Wound Cx, will obtain Wound MRSA PCR, plan repeat CBC in AM, continue affected extremity elevation above heart when seated and in bed, monitor erythema outline with VS checks. Pharmacy to assist with vanc dosing/trough. Likely will need to consider additional imaging, plain film LLE pending upon admission. Mag pending. Wound RN consultation pending. CRP, ESR pending. PT, OT, CM for discharge planning. (2) CAD: s/p CABG x 4 (CABG x4-PABLITO to LAD, ZIMMERMAN to DX, SVG to CX, SVG to RCA 1985) and PCI (PTCA/DO to mid RCA 06/20/04), following w/ Dr. Hewitt. (3) Diabetes mellitus type II: Clarify regimen, not on agent, HgbA1c pending, ADA diet, accu checks w/ ISS. (4) Chronic COPD w/ Chronic Hypoxic Respiratory Failure (3L NC): Will maintain on home oxygen supplementation, continue ATC duonebs, PRN albuterol, HOB, IS parameters, VEST. Following w/ Dr. Aviles outpatient. CXR pending upon admission. (5) Chronic Systolic CHF: s/p AICD/pacemaker, maintain on home regimen coreg, spironolactone, lasix. Not on BB, statin. (6) Hypothyroidism: Maintain on home synthroid regimen. (7) Hx DVT: Maintain on coumadin with INR trending. (8) Chronic AF: s/p AICD/pacemaker, maintained on coumadin w/ INR trending, coreg and multaq. (9) Chronic Kidney Disease Stage III: Admission BUN/Cr41/1.59, baseline renal function 1.4-1.8, repeat BMP in AM. (10) Obesity: Weight loss and lifestyle changes encouraged. (11) ALIVIA: Continue home CPAP/BIPAP regimen. (12) GERD: PPI. (13) DVT Prophylaxis: SCDs, coumadin w/ INR trending. Code Visit Inpatient E&M: [id number] Init Hosp L3
--- NOTE | 2017-09-11 13:31 | HP.PCM_ITS ---
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 Status: Chronic (6) Atrial fibrillation Status: Chronic Qualifiers: Atrial fibrillation type: chronic Qualified Code(s): I48.2 - Chronic atrial fibrillation (7) Cardiac pacemaker in situ Status: Chronic (8) Ventricular tachycardia Status: Chronic (9) Chronic systolic congestive heart failure Status: Chronic (10) H/O percutaneous transluminal coronary angioplasty Status: Chronic (11) Aortocoronary bypass status Status: Chronic Comment: CABG x4-PABLITO to LAD, ZIMMERMAN to DX, SVG to CX, SVG to RCA 1985 (12) Ischemic cardiomyopathy Status: Chronic (13) Benign essential hypertension Status: Chronic (14) Type II diabetes mellitus Status: Chronic Qualifiers: Diabetes mellitus terminal makeup operator insulin use: without terminal makeup operator use Diabetes mellitus complication status: with unspecified complications Qualified Code(s) : E11.8 - Type 2 diabetes mellitus with unspecified complications (15) HLD (hyperlipidemia) Status: Chronic Qualifiers: (16) AICD (automatic cardioverter/defibrillator) present Status: Chronic Comment: implantation 04/21; gen change and pocket revision (17) CKD (chronic kidney disease) stage 3, GFR 30-59 ml/min Status: Chronic (18) Left leg cellulitis Status: Acute (19) Unspecified open wound, left foot, initial encounter Status: Acute History of Present Illness Date of Admission: 09/11/17 Chief Complaint: LLE wound, redness. The patient is a 82 /o M w/ PMHx: CKD stage III (baseline Cr 1.4-1.8), Obesity, ALIVIA, Chronic AF, Hx DVT, Chronic COPD w/ Chronic Hypoxic Respiratory Failure ( 3L NC), Chronic Systolic CHF, Hx VT, s/p AICD/pacemaker status, CAD s/p CABG x 4 (CABG x4-PABLITO to LAD, ZIMMERMAN to DX, SVG to CX, SVG to RCA 1985) and PCI (PTCA/ DO to mid RCA 06/20/04), HTN, HLD, Diabetes mellitus type II who presents to the [facility] ED on 09/11/17 with LLE redness and dorsal L foot wound with history of completion abx therapy ~ 2 weeks (?1-2 week course IV abx therapy, no Wound Cx noted in [facility] as far as organism or sensitivities) prior for this ongoing issue; however, since he has had ongoing drainage from the wound with progressively increasing redness w/ streaking up the leg x 24 hours. In the ED work-up included T 98.1, HR 64, 96/57, RR 19, 96% on 2L NC, CBC w/ WBC 12.7, Hgb 13.3, Plts 156 with L shift, INR 3.3, BMP w/ BUN/Cr 41/1.59, plain film foot and CXR pending upon admission, Wound cx obtained in the ED. Past Medical History Past Medical History (Chronic Problems): Chronic Problems (Last Reviewed 08/06/17 @ 15:23 by Joelle Vega) Obesity (BMI 30.0-34.9) (Chronic) ALIVIA (obstructive sleep apnea) (Chronic) History of DVT (deep vein thrombosis) (Chronic) COPD (chronic obstructive pulmonary disease) (Chronic) CKD (chronic kidney disease) stage 3, GFR 30-59 ml/min (Chronic) MCC (current) use of anticoagulants (Chronic) Atrial fibrillation (Chronic) Cardiac pacemaker in situ (Chronic) Ventricular tachycardia (Chronic) Chronic systolic congestive heart failure (Chronic) Presence of stent in coronary artery (Chronic ~06/20/04) PTCA/DO to mid RCA 06/20/04 H/O percutaneous transluminal coronary angioplasty (Chronic) 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) CABG x4-PABLITO to LAD, ZIMMERMAN to DX, SVG to CX, SVG to RCA 1985 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 (Chronic) CABG x4-PABLITO to LAD, ZIMMERMAN to DX, SVG to CX, SVG to RCA 1985; PTCA/DO to mid RCA 06/20/04 Ischemic cardiomyopathy (Chronic) Benign essential hypertension (Chronic) Type II diabetes mellitus (Chronic) HLD (hyperlipidemia) (Chronic) AICD (automatic cardioverter/defibrillator) present (Chronic) implantation 04/21; gen change and pocket revision 03/17/13 Allergies acetaminophen [From Percocet] Adverse Reaction (Unknown, Verified 09/11/17 11:11 ) Unknown oxycodone [From Percocet] Adverse Reaction (Unknown, Verified 09/11/17 11:11) Unknown amiodarone Adverse Reaction (Verified 09/11/17 11:11) affects his lungs/breathing azithromycin Adverse Reaction (Verified 09/11/17 11:11) Other PATIENT STATES HE LOST HIS HEARING AND HIS HAIR ceftriaxone sodium [From Rocephin] Adverse Reaction (Verified 09/11/17 11:11) Unknown levofloxacin [From Levaquin] Adverse Reaction (Verified 09/11/17 12:23) Other linezolid [From Zyvox] Adverse Reaction (Verified 09/11/17 11:11) decreased platelets morphine Adverse Reaction (Verified 09/11/17 11:11) agitated tramadol Adverse Reaction (Verified 09/11/17 11:11) interferes with another medication he is on Home Medications: Ambulatory Orders Medication Instructions Recorded Albuterol Aerosols [Ventolin 2.5 mg INHALATION Q6H PRN PRN 06/02/17 Aerosols] Aspirin E.C. [Ecotrin] 81 mg PO DAILY@0800 06/02/17 Benzonatate [Tessalon Perle] 100 mg PO QHS 06/02/17 Carvedilol [Coreg] 12.5 mg PO BID 06/02/17 Clotrimazole [Lotrimin] 1 applicatio TOPICAL BID 06/02/17 Furosemide [Lasix] 20 mg PO QODAY 06/02/17 Spironolactone [Aldactone] 25 mg PO DAILY 06/02/17 Pantoprazole Sodium [Protonix] 20 mg PO BID #60 tab 07/16/17 budesonide-formoterol HFA 160 2 puff INHALATION BID 08/04/17 mcg-4.5 mcg/actuation aerosol inhaler levothyroxine 75 mcg tablet 75 mcg PO .COMPLEX tab 08/04/17 tiotropium bromide 18 mcg capsule 18 mcg INHALATION QDAY 08/06/17 with inhalation device venlafaxine ER 37.5 mg 3 tab PO QDAY cap 08/06/17 capsule,extended release 24 hr warfarin 2.5 mg tablet 2.5 mg PO .COMPLEX 09/02/17 Dronedarone Hydrochloride [Multaq] 400 mg PO BID 09/11/17 Surgical History: coronary bypass surgery, total knee arthroplasty - BL, - - 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 Jennings, PCI/stents, AICD placement Psychiatric History: No pertinent psych hx Lives: Spouse/ Significant Other Smoking Status: Former smoker Tobacco Use: Non-smoker Alcohol: Rare Drugs: None - *Family History Maternal History Items: No pertinent history Paternal History Items: No pertinent history Review of Systems Constitutional: Reports: Anorexia, Malaise, Weakness, Fatigue. Denies: Chills, Fever, Weight Change HEENT: Denies: Head Aches, Sinus Congestion, Sinus Drainage Cardiovascular: Denies: Chest Pain, Palpitations Respiratory: Reports: Shortness of Breath, Shortness of breath upon exertion. Denies: Cough, Shortness of breath at rest, Sputum production Gastrointestinal: Denies: Abdominal Pain, Nausea, Vomiting Genitourinary: Denies: Dysuria Musculoskeletal: Denies: Joint Pain, Joint Tenderness Skin: Reports: Skin Changes, Wounds. Denies: Rash Neurological: Denies: Numbness, Tingling, Focal weakness Psychiatric: Reports: Anxiety, Depression. Denies: Homicidal Ideations, Suicidal Ideations Hematologic/ Lymphatic: Reports: Anemia, Easy Bruising, Easy Bleeding VTE Information - Inpt Only VTE Present on Admission: No VTE Mechan Device Prophylaxis: SCD's VTE Pharm Prophylaxis ordered?: No Reason prophylaxis not ordered:: Treatment Not Indicated - Coumadin w/ INR trending. Patient Problems: Active and Suspected Problems (Last Reviewed 08/06/17 @ 15:23 by Joelle Vega) Left leg cellulitis (Acute) Unspecified open wound, left foot, initial encounter (Acute) Subjective: Seated upright in the ED, NAD, notes having discomfort to the LLE. Objective: Physical Examination: General: awake, alert, oriented x 3 and cooperative, seated upright in the ED bed in no apparent distress. Skin: normal color, turgor, no icterus, cyanosis except diffuse extremity various staged ecchymoses, LLE w/ dorsal foot wound with dorsal pedal edema and erythema extending up the leg primarily anteriorly and laterally. HEENT: AT/NC, EOMI, PERRLA, mildly dry MM, no carotid bruits or JVD noted. Lungs: Diminished BS BL, > bases, mild effort, no rales, ronchi or wheezing. Heart: Regular rate(paced); no gallop, rub audible. Abdomen: soft, obese, NTTP, ND, normal BS, no HSM. Extremities: no cyanosis, clubbing, LLE edema as noted, see skin. Neurological: patient awake, alert, oriented x 3; cognitive function intact; pupils equally reactive to light and accomodation; cranial nerves II-XII grossly normal, moving all 4 extremities, no focal deficits, strength moderately to severely globally decreased secondary to acute presentation. Psychiatric: affect appears fatigued, no acute evidence of depressive or anxiety feelings. - Physical Exam Vital Signs Temp Pulse Resp BP Pulse Ox 97.7 F L 62 20 H 98/62 96 09/11/17 11:11 09/11/17 11:11 09/11/17 11:11 09/11/17 11:11 09/11/17 11:11 Oxygen Flow Rate (L/min) 3 Oxygen Delivery Method Nasal Cannula Weight: 210 lb Body Mass Index (BMI) 33.9 Laboratory Tests Past 24 Hrs 09/11/17 09/11/17 09/11/17 12:20 12:20 12:20 WBC 12.7 H RBC 4.75 Hgb 13.3 Hct 41.3 MCV 86.9 MCH 28.0 MCHC 32.2 RDW 16.3 H RDW Differential 51.5 H Plt Count 156 MPV 9.7 Immature Gran % (Auto) 0.300 Neut % (Auto) 78.1 H Lymph % (Auto) 12.2 L Gallia % (Auto) 9.1 Eos % (Auto) 0.2 Baso % (Auto) 0.1 Absolute Neuts (auto) 9.9 H Absolute Lymphs (auto) 1.55 Total Counted Not Reportable PT 33.7 H INR 3.3 Sodium 136 Potassium 4.0 Chloride 101 Carbon Dioxide 28.0 Anion Gap 7 BUN 41 H Creatinine 1.59 H Estim Creat Clear Calc 33.44 Est GFR (MDRD) Af Amer 54 L Est GFR (MDRD) Non-Af 45 L BUN/Creatinine Ratio 25.8 H Glucose 85 Calcium 7.8 L Assessment/Plan Active and Suspected Problems (Last Reviewed 08/06/17 @ 15:23 by Joelle Vega) Left leg cellulitis (Acute) Unspecified open wound, left foot, initial encounter (Acute) The patient is a 82 /o M w/ PMHx: CKD stage III, Obesity, ALIVIA, Chronic AF, Hx DVT, Chronic COPD w/ Chronic Hypoxic Respiratory Failure (3L NC), Chronic Systolic CHF, Hx VT, s/p AICD/pacemaker status, CAD s/p CABG x 4 and PCI, HTN, HLD, Diabetes mellitus type II who presents to the [facility] ED on 09/11/17 with LLE redness and dorsal L foot wound with history of completion abx therapy ~ 2 weeks (?1-2 week course IV abx therapy, no Wound Cx noted in [facility] as far as organism or sensitivities) prior for this ongoing issue; however, since he has had ongoing drainage from the wound with progressively increasing redness w/ streaking up the leg. (1) LLE Dorsal Foot Wound and LLE Extremity Cellulitis: Will admit to [facility], maintain on IV Vanc and Zosyn, request Podiatry and ID Consultation, pending ED Wound Cx, will obtain Wound MRSA PCR, plan repeat CBC in AM, continue affected extremity elevation above heart when seated and in bed, monitor erythema outline with VS checks. Pharmacy to assist with vanc dosing/trough. Likely will need to consider additional imaging, plain film LLE pending upon admission. Mag pending. Wound RN consultation pending. CRP, ESR pending. PT, OT, CM for discharge planning. (2) CAD: s/p CABG x 4 (CABG x4-PABLITO to LAD, ZIMMERMAN to DX, SVG to CX, SVG to RCA 1985) and PCI (PTCA/DO to mid RCA 06/20/04), following w/ Dr. Hewitt. (3) Diabetes mellitus type II: Clarify regimen, not on agent, HgbA1c pending, ADA diet, accu checks w/ ISS. (4) Chronic COPD w/ Chronic Hypoxic Respiratory Failure (3L NC): Will maintain on home oxygen supplementation, continue ATC duonebs, PRN albuterol, HOB, IS parameters, VEST. Following w/ Dr. Aviles outpatient. CXR pending upon admission. (5) Chronic Systolic CHF: s/p AICD/pacemaker, maintain on home regimen coreg, spironolactone, lasix. Not on BB, statin. (6) Hypothyroidism: Maintain on home synthroid regimen. (7) Hx DVT: Maintain on coumadin with INR trending. (8) Chronic AF: s/p AICD/pacemaker, maintained on coumadin w/ INR trending, coreg and multaq. (9) Chronic Kidney Disease Stage III: Admission BUN/Cr41/1.59, baseline renal function 1.4-1.8, repeat BMP in AM. (10) Obesity: Weight loss and lifestyle changes encouraged. (11) ALIVIA: Continue home CPAP/BIPAP regimen. (12) GERD: PPI. (13) DVT Prophylaxis: SCDs, coumadin w/ INR trending. Code Visit Inpatient E&M: 21407 Init Hosp L3
[2017-09-11] MEDS: 0.9% Normal Saline 1,000 ML 100 ML IV (15:00)
[2017-09-11 15:11] LABS: Erythrocyte Sedimentation Rate 24 mm/hr (0-20)
[2017-09-11 15:20] LABS: Magnesium 1.7 mg/dL (1.6-2.6); Thyroid Stim Hormone (TSH) 0.75 uIU/mL (0.358-3.74)
--- NOTE | 2017-09-11 16:14 | PCM.RX.CS ---
Consult Pharmacy has been consulted to manage selected antiobiotic: Vancomycin Type of Consult: New start Suspected Infection: Skin/Soft tissue Prior Doses of Antibiotics Received/Current Regimen: VANCOMYCIN 1000MG IV X1 IN ED 09/11 @1330 Labs: Sodium 136 mmol/L (136-145) 09/11/17 12:20 Potassium 4.0 mmol/L (3.5-5.1) 09/11/17 12:20 Chloride 101 mmol/L (98-107) 09/11/17 12:20 Carbon Dioxide 28.0 mmol/L (21.0-32.0) 09/11/17 12:20 Anion Gap 7 (5-15) 09/11/17 12:20 BUN 41 mg/dL (7-18) H 09/11/17 12:20 Creatinine 1.59 mg/dL (0.70-1.30) H 09/11/17 12:20 Est GFR (MDRD) Af Amer 54 mL/min (>60) L 09/11/17 12:20 Est GFR (MDRD) Non-Af 45 mL/min (>60) L 09/11/17 12:20 BUN/Creatinine Ratio 25.8 RATIO (10-20) H 09/11/17 12:20 Glucose 85 mg/dL (74-106) 09/11/17 12:20 Microbiology: WCX: RARE GPC ON GRAM STAIN, FINAL CX PENDING Weight used for dosin.2 kg Estimated Creatinine Clearance: 33ML/MIN Goal Trough: 10-15 mcg/mL Pharmacy Plan for Drug Dosing: Pharmacy Service will continue to monitor and adjust dosing as required. Follow-Up Labs: Trough Vancomycin - 09/14/17 @1230
[2017-09-11 16:34] LABS: Hemoglobin A1c 5.8 % (4.2-6.3)
[2017-09-11] MEDS: Piperacil/Tazobactam 3.375 GM/50 ML ML IV (16:43)
[2017-09-11 16:55] LABS: M R Staph aureus DNA By PCR Negative (Negative); Probe Check PASS; Staph aureus DNA By PCR NEGATIVE (Negative)
[2017-09-11 17:01] LABS: Bedside Glucose 94 mg/dL (70-110)
[2017-09-11] MEDS: Ipratropium/Albuterol Sulfate 3 ML AMPUL.NEB INHALATION ×2 (17:05→19:18)
[2017-09-11] MEDS: Glucerna Shake 120 ML LIQUID PO ×2 (18:24→22:10)
[2017-09-11] MEDS: Carvedilol 12.5 MG Tablet PO (22:04)
[2017-09-11] MEDS: Senna/Docusate Sodium 1 Tablet 2 TABLET PO (22:04)
[2017-09-11] MEDS: MELATONIN 3 MG TABLET PO (22:04)
[2017-09-11] MEDS: Pantoprazole Sodium 20 MG Tablet PO (22:04)
[2017-09-11] MEDS: Benzonatate 100 MG Capsule PO (22:04)
[2017-09-11] MEDS: oxyCODONE 5 MG Tablet PO (22:08)
[2017-09-11 22:21] LABS: Bedside Glucose 104 mg/dL (70-110)
--- NOTE | 2017-09-11 23:25 | PCM.PROGNOTE ---
Patient Problems: Active and Suspected Problems (Last Reviewed 08/06/17 @ 15:23 by Joelle Vega) Left leg cellulitis (Acute) Unspecified open wound, left foot, initial encounter (Acute) Subjective: This 82 year old male with multiple comorbidities was seen bedside for left foot and leg infection. The onset was August 08 when he hit the top of his foot with a walker. He was treated with several rounds of antibiotics by his primary care physicians. His condition has worsened and recently started draining. He denies pain. - Physical Exam General: Alert, Oriented x3, Cooperative Extremities: No cyanosis, Capillary Refill Less than 3 Seconds, Diminished Peripheral Pulses, Edema - bilateral lower extremities, Tenderness - left calf Skin: Ulcer/ Wound - erythema dorsal foot with hematogenous dried material expressed from 6 mm x 4 mm dorsal foot wound. there is no odor. the erythema streak extends to the left leg to the thigh level. the peripheral skin is atrophic and without hair Musculoskeletal: No Tenderness to Palpation of Joints or Extremities, Muscle Wasting Neurological: - - lack of epicritic sensation via light touch Psych/Mental Status: Normal Affect, Appropriate Vital Signs Temp Pulse Resp BP Pulse Ox 97.8 F 63 18 111/64 95 09/11/17 22:00 09/11/17 22:00 09/11/17 22:00 09/11/17 22:00 09/11/17 22:00 Oxygen Flow Rate (L/min) 3 Oxygen Delivery Method Nasal Cannula Weight: 95.254 kg Body Mass Index (BMI) 33.9 Intake and Output for Last 24 Hours 09/09/17 09/10/17 09/11/17 23:59 23:59 23:59 Intake Total 705 / 705 Output Total 750 / 750 Balance -45 / -45 Laboratory Tests Past 24 Hrs 09/11/17 09/11/17 14:50 15:25 Hemoglobin A1c 5.8 S.aureus Protein A PCR NEGATIVE MRSA (PCR) Negative POC Glucose 09/11/17 09/11/17 22:03 16:41 POC Glucose 104 94 Medical Necessity - Tobacco Use Smoking Status: Former smoker Tobacco Use: Non-smoker Assessment/Plan Active and Suspected Problems (Last Reviewed 08/06/17 @ 15:23 by Joelle Vega) Left leg cellulitis (Acute) Unspecified open wound, left foot, initial encounter (Acute) left foot infected hematoma with ascending cellulitis diabetic neuropathy chronic anticoagulation other comorbidities I reviewed and discussed his case. His diagnostic data was reviewed. Three left foot xrays were reviewed without soft tissue emphysema noted. There were no fractures or dislocations. His leukocytosis was noted; 12.7. ESR and crp are elevated. Preliminary wound culture has gram positive cocci. His venous doppler exam was negative for DVT. Upon clinical examination about 5 cc of dried hematogenous drainage was expressed from the dorsal foot wound. This was packed with a wicked betadine gauze, kerlix, and an cassie wrap. I recommend he continues with antibiotics and infectious disease consultation. I will monitor him close while in house. Medical management per primary team is appreciated. Marissa Liu, [facility]
[2017-09-12] MEDS: Piperacil/Tazobactam 3.375 GM/50 ML ML IV ×3 (00:24→16:36)
[2017-09-12] MEDS: 0.9% NaCl Peripheral Flush Adult/Peds IV ×2 (03:59→08:06)
[2017-09-12 04:04] VITALS: BP 120/77; PULSE 63; RESP 17; TEMP 36.6; O2SAT 94
[2017-09-12 04:08] LABS: Absolute Neutrophil Count 7.3 X10^3/uL (2.0-7.7); Basophil# 0.02 X10^3/uL; Basophil% 0.2 % (0-1); Eosinophil# 0.07 X10^3/uL; Eosinophils% 0.7 % (0-5); Hematocrit 38.4 % (40-54); Hemoglobin 12.5 g/dl (13.0-16.5); Lymphocyte % 21.5 % (19-41); Mean Corp Hgb Conc 32.6 g/gl (32-36); Mean Corpuscular Hgb 28.5 pg (27.0-32.0); Mean Corpuscular Volume 87.5 fL (80-94); Mean Platelet Vol. 10.1 fl (6.2-12.0); Monocyte# 0.99 X10^3/uL; Monocyte% 9.3 % (0-10); Neutrophil # 7.25 X10^3/uL (2.7-7.7); Neutrophil % 67.8 % (47-70); Platelet Count 185 K/mm3 (150-450); RBC Distribution Width CV 16.4 % (11.6-14.6); RBC Distribution Width SD 52.1 fl (35.1-43.9); Red Blood Count 4.39 M/mm3 (4.6-6.2); White Blood Count 10.7 K/mm3 (4.4-11.0)
[2017-09-12 04:09] LABS: POSITIVE COUNT NO; POSITIVE DIFFERENTIAL NO; POSITIVE MORPHOLOGY NO
[2017-09-12 04:16] LABS: Prothrombin Time (Protime)PT. 35.6 SECONDS (11.7-14.9)
[2017-09-12 04:22] LABS: Anion Gap 7 (5-15); BUN 35 mg/dL (7-18); Calcium,Total 7.3 mg/dL (8.5-10.1); Chloride 100 mmol/L (98-107); Creatinine, Serum 1.52 mg/dL (0.70-1.30); EST Glomerular Filtration Rate 47 mL/min (>60); Est Glom Filt Rate - Afr Amer 57 mL/min (>60); Estimated Creatinine Clearance 34.98 ml/min; Glucose 96 mg/dL (74-106); International Normalized Ratio 3.5; Potassium 3.8 mmol/L (3.5-5.1); Sodium Level 135 mmol/L (136-145)
[2017-09-12] MEDS: Levothyroxine 75 MCG Tablet PO (06:08)
[2017-09-12 06:16] LABS: Bedside Glucose 123 mg/dL (70-110)
[2017-09-12] MEDS: Aspirin E.C. 81 MG Tablet PO (08:07)
[2017-09-12 08:17] VITALS: BP 112/65; PULSE 60; RESP 18; TEMP 36.6; O2SAT 95
--- NOTE | 2017-09-12 08:55 | PN_ITS ---
Patient Problems: Active and Suspected Problems (Last Reviewed 08/06/17 @ 15:23 by Joelle Vega) Left leg cellulitis (Acute) Unspecified open wound, left foot, initial encounter (Acute) Subjective: This 82-year-old male with multiple comorbidities as seen bedside for infected hematoma of left foot. She was admitted yesterday started on IV antibiotics. He reports decreased pain and swelling to his left lower extremity. He denies fever, chill, nausea, vomiting, diarrhea. He kept his dressing intact and was not able to tolerate his Mikhail wrap which was removed last night. - Physical Exam General: Alert, Oriented x3, Cooperative Extremities: No cyanosis, Capillary Refill Less than 3 Seconds, No Calf Tenderness, Diminished Peripheral Pulses Skin: Ulcer/ Wound - Additional 5 cc of dried hematogenous drainage without philip purulence or odor noted upon expression of the wound on the left foot. The erythema intensity and location has significantly decreased overnight and there is no longer distinct streaking up to the thigh level., - - The adjacent skin is hairless and atrophic Musculoskeletal: No Tenderness to Palpation of Joints or Extremities, Muscle Wasting - Decreased bogginess on palpation to the dorsal left foot, Tenderness - No pain with wound or hematoma palpation Neurological: - - Lack of epicritic sensation light touch Psych/Mental Status: Normal Affect, Appropriate Vital Signs Temp Pulse Resp BP Pulse Ox 97.8 F 60 18 112/65 95 09/12/17 08:17 09/12/17 08:17 09/12/17 08:17 09/12/17 08:17 09/12/17 08:17 Oxygen Flow Rate (L/min) 3 Oxygen Delivery Method Nasal Cannula Weight: 95.254 kg Body Mass Index (BMI) 33.9 Intake and Output for Last 24 Hours 09/10/17 09/11/17 09/12/17 23:59 23:59 23:59 Intake Total 705 / 705 1575 / 1575 Output Total 750 / 750 900 / 900 Balance -45 / -45 675 / 675 Laboratory Tests Past 24 Hrs 09/11/17 09/11/17 09/12/17 14:50 15:25 03:55 WBC 10.7 RBC 4.39 L Hgb 12.5 L Hct 38.4 L MCV 87.5 MCH 28.5 MCHC 32.6 RDW 16.4 H RDW Differential 52.1 H Plt Count 185 MPV 10.1 Immature Gran % (Auto) 0.500 Neut % (Auto) 67.8 Lymph % (Auto) 21.5 Lyman % (Auto) 9.3 Eos % (Auto) 0.7 Baso % (Auto) 0.2 Absolute Neuts (auto) 7.3 Absolute Lymphs (auto) 2.30 Total Counted Not Reportable PT INR Sodium Potassium Chloride Carbon Dioxide Anion Gap BUN Creatinine Estim Creat Clear Calc Est GFR (MDRD) Af Amer Est GFR (MDRD) Non-Af BUN/Creatinine Ratio Glucose Hemoglobin A1c 5.8 Calcium S.aureus Protein A PCR NEGATIVE MRSA (PCR) Negative 09/12/17 09/12/17 03:55 03:55 WBC RBC Hgb Hct MCV MCH MCHC RDW RDW Differential Plt Count MPV Immature Gran % (Auto) Neut % (Auto) Lymph % (Auto) Lyman % (Auto) Eos % (Auto) Baso % (Auto) Absolute Neuts (auto) Absolute Lymphs (auto) Total Counted PT 35.6 H INR 3.5 H* Sodium 135 L Potassium 3.8 Chloride 100 Carbon Dioxide 28.0 Anion Gap 7 BUN 35 H Creatinine 1.52 H Estim Creat Clear Calc 34.98 Est GFR (MDRD) Af Amer 57 L Est GFR (MDRD) Non-Af 47 L BUN/Creatinine Ratio 23.0 H Glucose 96 Hemoglobin A1c Calcium 7.3 L S.aureus Protein A PCR MRSA (PCR) POC Glucose 09/12/17 09/11/17 09/11/17 06:08 22:03 16:41 POC Glucose 123 H 104 94 Medical Necessity - Tobacco Use Smoking Status: Former smoker Tobacco Use: Non-smoker Assessment/Plan Active and Suspected Problems (Last Reviewed 08/06/17 @ 15:23 by Joelle Vega) Left leg cellulitis (Acute) Unspecified open wound, left foot, initial encounter (Acute) left foot infected hematoma with ascending cellulitis is demonstrating improvement overnight diabetic neuropathy chronic anticoagulation other comorbidities I reviewed and discussed his case. His diagnostic data was reviewed. His white blood cell count has decreased to 10.7 and his vital signs remained stable preliminary wound culture has gram positive cocci. Upon clinical examination an additional 5 cc of dried hematogenous drainage was expressed from the dorsal foot wound. This was packed and with a wicked betadine gauze, kerlix, and an mikhail wrap. I recommend he continues with antibiotics and infectious disease consultation is appreciated. He is currently on Zosyn and vancomycin. He understands if this does not resolve with wound care and antibiotics, surgical drainage and debridement may be required. However, he has appeared to demonstrate significant improvement overnight on his current treatment plan this is not likely. I will continue to monitor him close while in house. Medical management and dvt prophylaxis per primary team is appreciated. Marissa Liu, [facility] [phone]
--- NOTE | 2017-09-12 09:35 | PCM.HP.ID ---
Problem List (1) Left leg cellulitis Status: Acute Reason for Consult: infected hematoma Consulted by: Dr. Cruz History of Present Illness: The patient is a 82 year old M with h/o CKD and COPD who presented with worsening L foot bloody drainage, swelling, pain, and redness. Sx started when his walker landed on his foot about a month ago. Had swelling, pain, redness, saw PCP, was on 1-2 weeks of iv abx via port with mild improvement. He is not sure what he took. Over past few days, foot worsened, redness spread throughout foot, and drainage started. No fever or chills. Now admitted through ED, on vanc/zosyn. Full ROS performed and neg except as noted above. 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) Atrial fibrillation (Chronic) Cardiac pacemaker in situ (Chronic) Ventricular tachycardia (Chronic) Chronic systolic congestive heart failure (Chronic) Presence of stent in coronary artery (Chronic ~06/20/04) PTCA/DO to mid RCA 06/20/04 H/O percutaneous transluminal coronary angioplasty (Chronic) 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) CABG x4-PABLITO to LAD, ZIMMERMAN to DX, SVG to CX, SVG to RCA 1985 Atherosclerotic heart disease of [place] coronary artery without angina pectoris (Chronic) CABG x4-PABLTIO to LAD, ZIMMERMAN to DX, SVG to CX, SVG to RCA 1985; PTCA/DO to mid RCA 06/20/04 Ischemic cardiomyopathy (Chronic) Benign essential hypertension (Chronic) Type II diabetes mellitus (Chronic) HLD (hyperlipidemia) (Chronic) AICD (automatic cardioverter/defibrillator) present (Chronic) implantation 04/21; gen change and pocket revision 03/17/13 Allergies/Adverse Reactions: Allergies acetaminophen [From Percocet] Adverse Reaction (Unknown, Verified 09/11/17 11:11) Unknown oxycodone [From Percocet] Adverse Reaction (Unknown, Verified 09/11/17 11:11) Unknown amiodarone Adverse Reaction (Verified 09/11/17 11:11) affects his lungs/breathing azithromycin Adverse Reaction (Verified 09/11/17 11:11) Other PATIENT STATES HE LOST HIS HEARING AND HIS HAIR levofloxacin [From Levaquin] Adverse Reaction (Verified 09/11/17 12:23) Other linezolid [From Zyvox] Adverse Reaction (Verified 09/11/17 11:11) decreased platelets morphine Adverse Reaction (Verified 09/11/17 11:11) agitated tramadol Adverse Reaction (Verified 09/11/17 11:11) interferes with another medication he is on Home Medications: Ambulatory Orders Medication Instructions Recorded Albuterol Aerosols [Ventolin 2.5 mg INHALATION Q6H PRN PRN 06/02/17 Aerosols] Aspirin E.C. [Ecotrin] 81 mg PO DAILY@0800 06/02/17 Benzonatate [Tessalon Perle] 100 mg PO QHS 06/02/17 Carvedilol [Coreg] 12.5 mg PO BID 06/02/17 Clotrimazole [Lotrimin] 1 applicatio TOPICAL BID 06/02/17 Furosemide [Lasix] 20 mg PO QODAY 06/02/17 Spironolactone [Aldactone] 25 mg PO DAILY 06/02/17 Pantoprazole Sodium [Protonix] 20 mg PO BID #60 tab 07/16/17 budesonide-formoterol HFA 160 2 puff INHALATION BID 08/04/17 mcg-4.5 mcg/actuation aerosol inhaler levothyroxine 75 mcg tablet 75 mcg PO DAILY tab 08/04/17 tiotropium bromide 18 mcg capsule 18 mcg INHALATION QDAY 08/06/17 with inhalation device venlafaxine ER 37.5 mg 112.5 mg PO DAILY cap 08/06/17 capsule,extended release 24 hr warfarin 2.5 mg tablet 2.5 mg PO MOTUWETHFR 09/02/17 Dronedarone Hydrochloride [Multaq] 400 mg PO BID 09/11/17 Warfarin [Coumadin (PBKC)] 1.25 mg PO SUSA 09/11/17 - Social History SMOKING STATUS:: Former smoker Vital Signs Temp Pulse Resp BP Pulse Ox 97.8 F 60 18 112/65 95 09/12/17 08:17 09/12/17 08:17 09/12/17 08:17 09/12/17 08:17 09/12/17 08:17 Oxygen Flow Rate (L/min) 3 Oxygen Delivery Method Nasal Cannula Weight: 95.254 kg Body Mass Index (BMI) 33.9 Laboratory Tests Past 24 Hrs 09/11/17 09/11/17 09/12/17 14:50 15:25 03:55 WBC 10.7 RBC 4.39 L Hgb 12.5 L Hct 38.4 L MCV 87.5 MCH 28.5 MCHC 32.6 RDW 16.4 H RDW Differential 52.1 H Plt Count 185 MPV 10.1 Immature Gran % (Auto) 0.500 Neut % (Auto) 67.8 Lymph % (Auto) 21.5 [place] % (Auto) 9.3 Eos % (Auto) 0.7 Baso % (Auto) 0.2 Absolute Neuts (auto) 7.3 Absolute Lymphs (auto) 2.30 Total Counted Not Reportable PT INR Sodium Potassium Chloride Carbon Dioxide Anion Gap BUN Creatinine Estim Creat Clear Calc Est GFR (MDRD) Af Amer Est GFR (MDRD) Non-Af BUN/Creatinine Ratio Glucose Hemoglobin A1c 5.8 Calcium S.aureus Protein A PCR NEGATIVE MRSA (PCR) Negative 09/12/17 09/12/17 03:55 03:55 WBC RBC Hgb Hct MCV MCH MCHC RDW RDW Differential Plt Count MPV Immature Gran % (Auto) Neut % (Auto) Lymph % (Auto) [place] % (Auto) Eos % (Auto) Baso % (Auto) Absolute Neuts (auto) Absolute Lymphs (auto) Total Counted PT 35.6 H INR 3.5 H* Sodium 135 L Potassium 3.8 Chloride 100 Carbon Dioxide 28.0 Anion Gap 7 BUN 35 H Creatinine 1.52 H Estim Creat Clear Calc 34.98 Est GFR (MDRD) Af Amer 57 L Est GFR (MDRD) Non-Af 47 L BUN/Creatinine Ratio 23.0 H Glucose 96 Hemoglobin A1c Calcium 7.3 L S.aureus Protein A PCR MRSA (PCR) - Other Studies Radiology: [] reviewed Other Studies: [] Route of nutrition/ use of supplements: [] Nutritional Intake: [] IV Site: [] Monge Catheter: [] - Physical Exam General: Alert, Cooperative, No apparent distress Neck: Supple, No Nodes Lungs: Clear to auscultation, Normal air movement Cardiovascular: Regular rate, Regular Rhythm Abdomen: Bowel Sounds Present, Soft, Non Tender, Non-Distended Extremities: Edema - mild Skin: Ulcer/ Wound - L foot wrapped, surrounding erythema IV Site: - - port no redness Neurological: Cranial nerves II-XII grossly intact - Assessment/Plan Antibiotics: [] Assessment/Plan: [] Active and Suspected Problems (Last Reviewed 08/06/17 @ 15:23 by Joelle Vega) Left leg cellulitis (Acute) Unspecified open wound, left foot, initial encounter (Acute) L foot infected hematoma with surrounding cellulitis - failure with recent course of iv abx likely due to lack of source control. Podiatry following and working on draining hematoma. Cx pending. Cont empiric vanc/zosyn. Should be good candidate for po abx at discharge. Will follow, thank you.
--- NOTE | 2017-09-12 09:40 | CON.PCM_ITS ---
Problem List (1) Left leg cellulitis Status: Acute Reason for Consult: infected hematoma Consulted by: Dr. Cruz History of Present Illness: The patient is a 82 year old M with h/o CKD and COPD who presented with worsening L foot bloody drainage, swelling, pain, and redness. Sx started when his walker landed on his foot about a month ago. Had swelling, pain, redness, saw PCP, was on 1-2 weeks of iv abx via port with mild improvement. He is not sure what he took. Over past few days, foot worsened, redness spread throughout foot, and drainage started. No fever or chills. Now admitted through ED, on vanc/zosyn. Full ROS performed and neg except as noted above. 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) Atrial fibrillation (Chronic) Cardiac pacemaker in situ (Chronic) Ventricular tachycardia (Chronic) Chronic systolic congestive heart failure (Chronic) Presence of stent in coronary artery (Chronic ~06/20/04) PTCA/DO to mid RCA 06/20/04 H/O percutaneous transluminal coronary angioplasty (Chronic) 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) CABG x4-PABLITO to LAD, ZIMMERMAN to DX, SVG to CX, SVG to RCA 1985 Atherosclerotic heart disease of [place] coronary artery without angina pectoris (Chronic) CABG x4-PABLITO to LAD, ZIMMERMAN to DX, SVG to CX, SVG to RCA 1985; PTCA/DO to mid RCA 06/20/04 Ischemic cardiomyopathy (Chronic) Benign essential hypertension (Chronic) Type II diabetes mellitus (Chronic) HLD (hyperlipidemia) (Chronic) AICD (automatic cardioverter/defibrillator) present (Chronic) implantation 04/21; gen change and pocket revision 03/17/13 Allergies/Adverse Reactions: Allergies acetaminophen [From Percocet] Adverse Reaction (Unknown, Verified 09/11/17 11:11 ) Unknown oxycodone [From Percocet] Adverse Reaction (Unknown, Verified 09/11/17 11:11) Unknown amiodarone Adverse Reaction (Verified 09/11/17 11:11) affects his lungs/breathing azithromycin Adverse Reaction (Verified 09/11/17 11:11) Other PATIENT STATES HE LOST HIS HEARING AND HIS HAIR levofloxacin [From Levaquin] Adverse Reaction (Verified 09/11/17 12:23) Other linezolid [From Zyvox] Adverse Reaction (Verified 09/11/17 11:11) decreased platelets morphine Adverse Reaction (Verified 09/11/17 11:11) agitated tramadol Adverse Reaction (Verified 09/11/17 11:11) interferes with another medication he is on Home Medications: Ambulatory Orders Medication Instructions Recorded Albuterol Aerosols [Ventolin 2.5 mg INHALATION Q6H PRN PRN 06/02/17 Aerosols] Aspirin E.C. [Ecotrin] 81 mg PO DAILY@0800 06/02/17 Benzonatate [Tessalon Perle] 100 mg PO QHS 06/02/17 Carvedilol [Coreg] 12.5 mg PO BID 06/02/17 Clotrimazole [Lotrimin] 1 applicatio TOPICAL BID 06/02/17 Furosemide [Lasix] 20 mg PO QODAY 06/02/17 Spironolactone [Aldactone] 25 mg PO DAILY 06/02/17 Pantoprazole Sodium [Protonix] 20 mg PO BID #60 tab 07/16/17 budesonide-formoterol HFA 160 2 puff INHALATION BID 08/04/17 mcg-4.5 mcg/actuation aerosol inhaler levothyroxine 75 mcg tablet 75 mcg PO DAILY tab 08/04/17 tiotropium bromide 18 mcg capsule 18 mcg INHALATION QDAY 08/06/17 with inhalation device venlafaxine ER 37.5 mg 112.5 mg PO DAILY cap 08/06/17 capsule,extended release 24 hr warfarin 2.5 mg tablet 2.5 mg PO MOTUWETHFR 09/02/17 Dronedarone Hydrochloride [Multaq] 400 mg PO BID 09/11/17 Warfarin [Coumadin (PBKC)] 1.25 mg PO SUSA 09/11/17 - Social History SMOKING STATUS:: Former smoker Vital Signs Temp Pulse Resp BP Pulse Ox 97.8 F 60 18 112/65 95 09/12/17 08:17 09/12/17 08:17 09/12/17 08:17 09/12/17 08:17 09/12/17 08:17 Oxygen Flow Rate (L/min) 3 Oxygen Delivery Method Nasal Cannula Weight: 95.254 kg Body Mass Index (BMI) 33.9 Laboratory Tests Past 24 Hrs 09/11/17 09/11/17 09/12/17 14:50 15:25 03:55 WBC 10.7 RBC 4.39 L Hgb 12.5 L Hct 38.4 L MCV 87.5 MCH 28.5 MCHC 32.6 RDW 16.4 H RDW Differential 52.1 H Plt Count 185 MPV 10.1 Immature Gran % (Auto) 0.500 Neut % (Auto) 67.8 Lymph % (Auto) 21.5 [place] % (Auto) 9.3 Eos % (Auto) 0.7 Baso % (Auto) 0.2 Absolute Neuts (auto) 7.3 Absolute Lymphs (auto) 2.30 Total Counted Not Reportable PT INR Sodium Potassium Chloride Carbon Dioxide Anion Gap BUN Creatinine Estim Creat Clear Calc Est GFR (MDRD) Af Amer Est GFR (MDRD) Non-Af BUN/Creatinine Ratio Glucose Hemoglobin A1c 5.8 Calcium S.aureus Protein A PCR NEGATIVE MRSA (PCR) Negative 09/12/17 09/12/17 03:55 03:55 WBC RBC Hgb Hct MCV MCH MCHC RDW RDW Differential Plt Count MPV Immature Gran % (Auto) Neut % (Auto) Lymph % (Auto) [place] % (Auto) Eos % (Auto) Baso % (Auto) Absolute Neuts (auto) Absolute Lymphs (auto) Total Counted PT 35.6 H INR 3.5 H* Sodium 135 L Potassium 3.8 Chloride 100 Carbon Dioxide 28.0 Anion Gap 7 BUN 35 H Creatinine 1.52 H Estim Creat Clear Calc 34.98 Est GFR (MDRD) Af Amer 57 L Est GFR (MDRD) Non-Af 47 L BUN/Creatinine Ratio 23.0 H Glucose 96 Hemoglobin A1c Calcium 7.3 L S.aureus Protein A PCR MRSA (PCR) - Other Studies Radiology: [] reviewed Other Studies: [] Route of nutrition/ use of supplements: [] Nutritional Intake: [] IV Site: [] Monge Catheter: [] - Physical Exam General: Alert, Cooperative, No apparent distress Neck: Supple, No Nodes Lungs: Clear to auscultation, Normal air movement Cardiovascular: Regular rate, Regular Rhythm Abdomen: Bowel Sounds Present, Soft, Non Tender, Non-Distended Extremities: Edema - mild Skin: Ulcer/ Wound - L foot wrapped, surrounding erythema IV Site: - - port no redness Neurological: Cranial nerves II-XII grossly intact - Assessment/Plan Antibiotics: [] Assessment/Plan: [] Active and Suspected Problems (Last Reviewed 08/06/17 @ 15:23 by Joelle Vega) Left leg cellulitis (Acute) Unspecified open wound, left foot, initial encounter (Acute) L foot infected hematoma with surrounding cellulitis - failure with recent course of iv abx likely due to lack of source control. Podiatry following and working on draining hematoma. Cx pending. Cont empiric vanc/zosyn. Should be good candidate for po abx at discharge. Will follow, thank you.
[2017-09-12] MEDS: Venlafaxine XR 37.5 MG Capsule 112.5 MG PO (10:04)
[2017-09-12] MEDS: Carvedilol 12.5 MG Tablet PO ×2 (10:05→22:56)
[2017-09-12] MEDS: Spironolactone 25 MG Tablet PO (10:05)
[2017-09-12] MEDS: Pantoprazole Sodium 20 MG Tablet PO ×2 (10:06→22:57)
[2017-09-12] MEDS: Glucerna Shake 120 ML LIQUID PO ×4 (10:09→23:00)
[2017-09-12 11:26] LABS: Bedside Glucose 182 mg/dL (70-110)
--- NOTE | 2017-09-12 13:38 | CASEMGMT ---
RN BIRDIE Face to Face with patient for initial transition planning/care coordination assessment. RN CM introduced self and role at [facility]. Patient lying in bed, alert and oriented. Patient willing to participate in assessment and is able to answer all questions appropriately. Care providers, pharmacy, and demographics verified. Patient lives in 1 story home with , is able to navigate 3 steps into home. Patient states he has shower chair, cane, walker, oxygen, and nebulizer at home. Patient states that he has had [facility] in the past. Patient wishes to discharge home, denies need for home health or additional DME at this time. Pt states he has no further needs or concerns at this time. CM to follow for discharge planning needs that may arise. Disposition Plan: Patient to discharge home family support and follow-up plans in place.
[2017-09-12 13:43] VITALS: PULSE 60; RESP 16; O2SAT 97
[2017-09-12] MEDS: Ipratropium/Albuterol Sulfate 3 ML AMPUL.NEB INHALATION ×2 (13:43→20:00)
--- NOTE | 2017-09-12 14:19 | NURSING ---
Dr Liu had been in this am and changed dressing. Did not remove at this time.
[2017-09-12 15:30] VITALS: BP 110/60; PULSE 56; RESP 16; TEMP 36.9; O2SAT 95
[2017-09-12 16:55] LABS: Bedside Glucose 107 mg/dL (70-110)
--- NOTE | 2017-09-12 18:58 | PCM.PROGNOTE ---
Patient Problems: Active and Suspected Problems (Last Reviewed 08/06/17 @ 15:23 by Joelle Vega) Left leg cellulitis (Acute) Unspecified open wound, left foot, initial encounter (Acute) Subjective: He is feeling fair. Pain is better. Afebrile. WBC normal. - Physical Exam General: Alert, Oriented x3, Cooperative, Well developed, Well nourished HEENT: Atraumatic, PERRLA, Normocephalic Oral: Moist Mucosa, No Gingival or Mucosal Lesions/ Ulcerations Neck: Supple, No JVD, Negative Carotid Bruits Lungs: Clear to auscultation, Normal air movement, No rhonchi, No wheeze, No rales Cardiovascular: Regular rate, Regular Rhythm, Normal S1, Normal S2, No murmurs, No Ectopic Activity Abdomen: Bowel Sounds Present, Soft, Non Tender, Non-Distended, No Hepato-splenomegaly, Obese Extremities: No clubbing, No cyanosis, No edema Skin: - - erythema of left distal leg. Dressed dorsum of foot, clean and dry. Musculoskeletal: No Tenderness to Palpation of Joints or Extremities, No Muscle Wasting Lymphatic: No Cervical, Supraclavicular, or Inguinal Adenopathy Neurological: Cranial nerves II-XII grossly intact, Neuro grossly intact Psych/Mental Status: Normal Affect Vital Signs Temp Pulse Resp BP Pulse Ox 98.4 F 56 L 16 110/60 95 09/12/17 15:30 09/12/17 15:30 09/12/17 15:30 09/12/17 15:30 09/12/17 15:30 Oxygen Flow Rate (L/min) 3 Oxygen Delivery Method Nasal Cannula Weight: 209 lb 15.986 oz Body Mass Index (BMI) 33.9 Intake and Output for Last 24 Hours 09/10/17 09/11/17 09/12/17 23:59 23:59 23:59 Intake Total 705 / 705 2466 / 2466 Output Total 750 / 750 1350 / 1350 Balance -45 / -45 1116 / 1116 Laboratory Tests Past 24 Hrs 09/12/17 09/12/17 09/12/17 03:55 03:55 03:55 WBC 10.7 RBC 4.39 L Hgb 12.5 L Hct 38.4 L MCV 87.5 MCH 28.5 MCHC 32.6 RDW 16.4 H RDW Differential 52.1 H Plt Count 185 MPV 10.1 Immature Gran % (Auto) 0.500 Neut % (Auto) 67.8 Lymph % (Auto) 21.5 [place] % (Auto) 9.3 Eos % (Auto) 0.7 Baso % (Auto) 0.2 Absolute Neuts (auto) 7.3 Absolute Lymphs (auto) 2.30 Total Counted Not Reportable PT 35.6 H INR 3.5 H* Sodium 135 L Potassium 3.8 Chloride 100 Carbon Dioxide 28.0 Anion Gap 7 BUN 35 H Creatinine 1.52 H Estim Creat Clear Calc 34.98 Est GFR (MDRD) Af Amer 57 L Est GFR (MDRD) Non-Af 47 L BUN/Creatinine Ratio 23.0 H Glucose 96 Calcium 7.3 L POC Glucose 09/12/17 09/12/17 09/12/17 16:30 11:13 06:08 POC Glucose 107 182 H 123 H 09/11/17 22:03 POC Glucose 104 Diagnostic Data Chest X-Ray 09/11/17 11:47 IMPRESSION: Diffuse left lung base greater than mid lung opacities, may represent atelectasis, pleural fluid or pneumonia. No air bronchograms associated. Clinical correlation recommended. If clinically indicated, full inspiratory chest 2 view study may be more helpful. Cardiomegaly as described. No overt cardiac failure status post cardiac thoracic surgery and right pacemaker/defibrillator placement. Electronically Signed: Jed Barrios, at 13:31 EDT Tel , Service support , Foot X-Ray 09/11/17 12:32 IMPRESSION: Slight decrease in soft tissue swelling when compared to prior study. The remainder of the findings appear stable. Electronically Signed: Cody Alcala DO at 13:23 EDT Tel [phone], Service support , Medical Necessity - Tobacco Use Smoking Status: Former smoker Tobacco Use: Non-smoker Assessment/Plan Active and Suspected Problems (Last Reviewed 08/06/17 @ 15:23 by Joelle Vega) Left leg cellulitis (Acute) Unspecified open wound, left foot, initial encounter (Acute) The patient is a 82 /o M w/ PMHx: CKD stage III, Obesity, ALIVIA, Chronic AF, Hx DVT, Chronic COPD w/ Chronic Hypoxic Respiratory Failure (3L NC), Chronic Systolic CHF, Hx VT, s/p AICD/pacemaker status, CAD s/p CABG x 4 and PCI, HTN, HLD, Diabetes mellitus type II who presents to the [facility] ED on 09/11/17 with LLE redness and dorsal L foot wound with history of completion abx therapy ~ 2 weeks (?1-2 week course IV abx therapy, no Wound Cx noted in [facility] as far as organism or sensitivities) prior for this ongoing issue; however, since he has had ongoing drainage from the wound with progressively increasing redness w/ streaking up the leg. #1 LE Dorsal Foot Wound and LLE Extremity Cellulitis: Started on vancomycin and Zosyn empirically. Infected hematoma was drained on 09/11 per podiatry. ID was consulted. Continue antibiotics and wound care. #2 CAD: s/p CABG x 4 (CABG x4-PABLITO to LAD, ZIMMERMAN to DX, SVG to CX, SVG to RCA 1985) and PCI (PTCA/DO to mid RCA 06/20/04), following w/ Dr. Hewitt. #3 Diabetes mellitus type II: Clarify regimen, not on agent, HgbA1c pending, ADA diet, accu checks w/ ISS. #4 COPD w/ Chronic Hypoxic Respiratory Failure (3L NC): Will maintain on home oxygen supplementation, continue ATC duonebs, PRN albuterol, HOB, IS parameters, VEST. Following w/ Dr. Aviles outpatient. CXR pending upon admission. #5 Chronic Systolic CHF: s/p AICD/pacemaker, maintain on home regimen coreg, spironolactone, lasix. Not on BB, statin. #6 Hypothyroidism: Maintain on home synthroid regimen. #7 Hx DVT: Maintain on coumadin with INR trending. #8 Chronic AF: s/p AICD/pacemaker, maintained on coumadin w/ INR trending, coreg and multaq. #9 Chronic Kidney Disease Stage III: Admission BUN/Cr41/1.59, baseline renal function 1.4-1.8, repeat BMP in AM. #10 Obesity: Weight loss and lifestyle changes encouraged. #11 ALIVIA: Continue home CPAP/BIPAP regimen. #12 Elevated INR. warfarin on hold. Monitor INR. VTE prophylaxis: SCD to right leg. Warfarin supratherapeutic. GI prophylaxis: PPI po. Patient is full code. Disposition: Home. Code Visit Inpatient E&M: 11848 Subs Hosp L2
--- NOTE | 2017-09-12 19:07 | PN_ITS ---
Patient Problems: Active and Suspected Problems (Last Reviewed 08/06/17 @ 15:23 by Joelle Vega) Left leg cellulitis (Acute) Unspecified open wound, left foot, initial encounter (Acute) Subjective: He is feeling fair. Pain is better. Afebrile. WBC normal. - Physical Exam General: Alert, Oriented x3, Cooperative, Well developed, Well nourished HEENT: Atraumatic, PERRLA, Normocephalic Oral: Moist Mucosa, No Gingival or Mucosal Lesions/ Ulcerations Neck: Supple, No JVD, Negative Carotid Bruits Lungs: Clear to auscultation, Normal air movement, No rhonchi, No wheeze, No rales Cardiovascular: Regular rate, Regular Rhythm, Normal S1, Normal S2, No murmurs, No Ectopic Activity Abdomen: Bowel Sounds Present, Soft, Non Tender, Non-Distended, No Hepato- splenomegaly, Obese Extremities: No clubbing, No cyanosis, No edema Skin: - - erythema of left distal leg. Dressed dorsum of foot, clean and dry. Musculoskeletal: No Tenderness to Palpation of Joints or Extremities, No Muscle Wasting Lymphatic: No Cervical, Supraclavicular, or Inguinal Adenopathy Neurological: Cranial nerves II-XII grossly intact, Neuro grossly intact Psych/Mental Status: Normal Affect Vital Signs Temp Pulse Resp BP Pulse Ox 98.4 F 56 L 16 110/60 95 09/12/17 15:30 09/12/17 15:30 09/12/17 15:30 09/12/17 15:30 09/12/17 15:30 Oxygen Flow Rate (L/min) 3 Oxygen Delivery Method Nasal Cannula Weight: 209 lb 15.986 oz Body Mass Index (BMI) 33.9 Intake and Output for Last 24 Hours 09/10/17 09/11/17 09/12/17 23:59 23:59 23:59 Intake Total 705 / 705 2466 / 2466 Output Total 750 / 750 1350 / 1350 Balance -45 / -45 1116 / 1116 Laboratory Tests Past 24 Hrs 09/12/17 09/12/17 09/12/17 03:55 03:55 03:55 WBC 10.7 RBC 4.39 L Hgb 12.5 L Hct 38.4 L MCV 87.5 MCH 28.5 MCHC 32.6 RDW 16.4 H RDW Differential 52.1 H Plt Count 185 MPV 10.1 Immature Gran % (Auto) 0.500 Neut % (Auto) 67.8 Lymph % (Auto) 21.5 [place] % (Auto) 9.3 Eos % (Auto) 0.7 Baso % (Auto) 0.2 Absolute Neuts (auto) 7.3 Absolute Lymphs (auto) 2.30 Total Counted Not Reportable PT 35.6 H INR 3.5 H* Sodium 135 L Potassium 3.8 Chloride 100 Carbon Dioxide 28.0 Anion Gap 7 BUN 35 H Creatinine 1.52 H Estim Creat Clear Calc 34.98 Est GFR (MDRD) Af Amer 57 L Est GFR (MDRD) Non-Af 47 L BUN/Creatinine Ratio 23.0 H Glucose 96 Calcium 7.3 L POC Glucose 09/12/17 09/12/17 09/12/17 16:30 11:13 06:08 POC Glucose 107 182 H 123 H 09/11/17 22:03 POC Glucose 104 Diagnostic Data Chest X-Ray 09/11/17 11:47 IMPRESSION: Diffuse left lung base greater than mid lung opacities, may represent atelectasis, pleural fluid or pneumonia. No air bronchograms associated. Clinical correlation recommended. If clinically indicated, full inspiratory chest 2 view study may be more helpful. Cardiomegaly as described. No overt cardiac failure status post cardiac thoracic surgery and right pacemaker/defibrillator placement. Electronically Signed: Jed Barrios, at 13:31 EDT Tel , Service support , Foot X-Ray 09/11/17 12:32 IMPRESSION: Slight decrease in soft tissue swelling when compared to prior study. The remainder of the findings appear stable. 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 #1 LE Dorsal Foot Wound and LLE Extremity Cellulitis: Started on vancomycin and Zosyn empirically. Infected hematoma was drained on 09/11 per podiatry. ID was consulted. Continue antibiotics and wound care. #2 CAD: s/p CABG x 4 (CABG x4-PABLITO to LAD, ZIMMERMAN to DX, SVG to CX, SVG to RCA 1985) and PCI (PTCA/DO to mid RCA 06/20/04), following w/ Dr. Hewitt. #3 Diabetes mellitus type II: Clarify regimen, not on agent, HgbA1c pending, ADA diet, accu checks w/ ISS. #4 COPD w/ Chronic Hypoxic Respiratory Failure (3L NC): Will maintain on home oxygen supplementation, continue ATC duonebs, PRN albuterol, HOB, IS parameters, VEST. Following w/ Dr. Aviles outpatient. CXR pending upon admission. #5 Chronic Systolic CHF: s/p AICD/pacemaker, maintain on home regimen coreg, spironolactone, lasix. Not on BB, statin. #6 Hypothyroidism: Maintain on home synthroid regimen. #7 Hx DVT: Maintain on coumadin with INR trending. #8 Chronic AF: s/p AICD/pacemaker, maintained on coumadin w/ INR trending, coreg and multaq. #9 Chronic Kidney Disease Stage III: Admission BUN/Cr41/1.59, baseline renal function 1.4-1.8, repeat BMP in AM. #10 Obesity: Weight loss and lifestyle changes encouraged. #11 ALIVIA: Continue home CPAP/BIPAP regimen. #12 Elevated INR. warfarin on hold. Monitor INR. VTE prophylaxis: SCD to right leg. Warfarin supratherapeutic. GI prophylaxis: PPI po. Patient is full code. Disposition: Home. Code Visit Inpatient E&M: 84439 Subs Hosp L2
[2017-09-12 20:00] VITALS: PULSE 66; RESP 16
[2017-09-12 22:00] VITALS: RESP 18
[2017-09-12] MEDS: MELATONIN 3 MG TABLET PO (22:57)
[2017-09-12] MEDS: Senna/Docusate Sodium 1 Tablet 2 TABLET PO (22:58)
[2017-09-12] MEDS: Benzonatate 100 MG Capsule PO (22:58)
[2017-09-12 23:10] LABS: Bedside Glucose 116 mg/dL (70-110)
[2017-09-13] MEDS: Piperacil/Tazobactam 3.375 GM/50 ML ML IV ×2 (00:02→09:21)
[2017-09-13] MEDS: 0.9% NaCl Peripheral Flush Adult/Peds IV (06:04)
[2017-09-13 06:12] LABS: Hematocrit 37.5 % (40-54); Hemoglobin 12.3 g/dl (13.0-16.5); Mean Corp Hgb Conc 32.8 g/gl (32-36); Mean Corpuscular Hgb 28.6 pg (27.0-32.0); Mean Corpuscular Volume 87.2 fL (80-94); Mean Platelet Vol. 9.7 fl (6.2-12.0); Platelet Count 198 K/mm3 (150-450); RBC Distribution Width CV 16.1 % (11.6-14.6); RBC Distribution Width SD 50.4 fl (35.1-43.9); White Blood Count 11.9 K/mm3 (4.4-11.0)
[2017-09-13 06:15] LABS: Scan Indicated on CBC? Y/N NO
[2017-09-13 06:26] LABS: Prothrombin Time (Protime)PT. 37.8 SECONDS (11.7-14.9)
[2017-09-13 06:40] LABS: Anion Gap 7 (5-15); BUN 26 mg/dL (7-18); BUN/Creat Ratio 18.8 RATIO (10-20); Calcium,Total 7.4 mg/dL (8.5-10.1); Chloride 99 mmol/L (98-107); Creatinine, Serum 1.38 mg/dL (0.70-1.30); EST Glomerular Filtration Rate 53 mL/min (>60); Est Glom Filt Rate - Afr Amer 64 mL/min (>60); Estimated Creatinine Clearance 38.53 ml/min; Glucose 104 mg/dL (74-106); Potassium 3.6 mmol/L (3.5-5.1); Sodium Level 134 mmol/L (136-145)
[2017-09-13 06:54] LABS: International Normalized Ratio 3.8
[2017-09-13 07:05] LABS: Bedside Glucose 118 mg/dL (70-110)
[2017-09-13 07:44] VITALS: PULSE 60; RESP 16; O2SAT 93
[2017-09-13] MEDS: Ipratropium/Albuterol Sulfate 3 ML AMPUL.NEB INHALATION ×2 (07:44→13:01)
[2017-09-13 09:14] VITALS: BP 117/68; PULSE 65; RESP 18; TEMP 36.7; O2SAT 93
[2017-09-13] MEDS: Spironolactone 25 MG Tablet PO (09:17)
[2017-09-13] MEDS: Carvedilol 12.5 MG Tablet PO (09:17)
[2017-09-13] MEDS: Venlafaxine XR 37.5 MG Capsule 112.5 MG PO (09:17)
[2017-09-13] MEDS: Aspirin E.C. 81 MG Tablet PO (09:17)
[2017-09-13] MEDS: Pantoprazole Sodium 20 MG Tablet PO (09:18)
[2017-09-13] MEDS: Furosemide 20 MG Tablet PO (09:18)
[2017-09-13] MEDS: Glucerna Shake 120 ML LIQUID PO ×2 (09:21→11:30)
[2017-09-13] MEDS: Acetaminophen 325 MG Tablet 650 MG PO (11:30)
[2017-09-13 11:45] LABS: Bedside Glucose 143 mg/dL (70-110)
--- NOTE | 2017-09-13 11:59 | PN_ITS ---
Patient Problems: Active and Suspected Problems (Last Reviewed 08/06/17 @ 15:23 by Joelle Vega) Left leg cellulitis (Acute) Unspecified open wound, left foot, initial encounter (Acute) Subjective: This 82-year-old male with multiple comorbidities was seen bedside for resolving left foot infected hematoma with cellulitis. He denies pain. His redness and swelling to the left lower extremity have resolved. He is being considered for discharge later today. - Physical Exam General: Alert, Oriented x3, Cooperative Extremities: No cyanosis, Capillary Refill Less than 3 Seconds - All toes left foot, No Calf Tenderness - Negative Tha and Kelley left, Diminished Peripheral Pulses, Edema - Decreased left lower extremity Skin: Ulcer/ Wound - Foot with decreased hematogenous drainage on expression of 1 cc; no hematoma expressed today. There is no purulence, erythema, streaking, odor, necrosis noted. This is significantly improved. Musculoskeletal: No Tenderness to Palpation of Joints or Extremities, Tenderness , - - Left ankle is rectus with ankle-foot orthotic in place Neurological: - - Lack of epicritic sensation light touch left lower extremity Psych/Mental Status: Normal Affect, Appropriate Vital Signs Temp Pulse Resp BP Pulse Ox 98.0 F 65 18 117/68 93 09/13/17 09:14 09/13/17 09:14 09/13/17 09:14 09/13/17 09:14 09/13/17 09:14 Oxygen Flow Rate (L/min) 3 Oxygen Delivery Method Nasal Cannula Weight: 95.254 kg Body Mass Index (BMI) 33.9 Intake and Output for Last 24 Hours 09/11/17 09/12/17 09/13/17 23:59 23:59 23:59 Intake Total 705 / 705 2466 / 2466 678 / 678 Output Total 750 / 750 1350 / 1350 575 / 575 Balance -45 / -45 1116 / 1116 103 / 103 Laboratory Tests Past 24 Hrs 09/13/17 09/13/17 09/13/17 06:00 06:00 06:00 WBC 11.9 H RBC 4.30 L Hgb 12.3 L Hct 37.5 L MCV 87.2 MCH 28.6 MCHC 32.8 RDW 16.1 H RDW Differential 50.4 H Plt Count 198 MPV 9.7 PT 37.8 H INR 3.8 H* Sodium 134 L Potassium 3.6 Chloride 99 Carbon Dioxide 28.0 Anion Gap 7 BUN 26 H Creatinine 1.38 H Estim Creat Clear Calc 38.53 Est GFR (MDRD) Af Amer 64 Est GFR (MDRD) Non-Af 53 L BUN/Creatinine Ratio 18.8 Glucose 104 Calcium 7.4 L POC Glucose 09/13/17 09/13/17 09/12/17 11:16 06:43 23:02 POC Glucose 143 H 118 H 116 H 09/12/17 16:30 POC Glucose 107 Medical Necessity - Tobacco Use Smoking Status: Former smoker Tobacco Use: Non-smoker Assessment/Plan Active and Suspected Problems (Last Reviewed 08/06/17 @ 15:23 by Joelle Vega) Left leg cellulitis (Acute) Unspecified open wound, left foot, initial encounter (Acute) left foot infected hematoma with ascending cellulitis -resolved diabetic neuropathy chronic anticoagulation other comorbidities I reviewed and discussed his case. His diagnostic data was reviewed. Clinically his infection has resolved and he is doing well. He no longer requires wound packing. A dry gauze and nguyen dressing was reapplied today. His wound culture growth demonstrates pseudomonas aeruginosa. Infectious disease and recommended d/c on oral antibiotics upon acute infection improvement. From a podiatry standpoint, he is stable to go home. To [facility] in one week or call sooner if problems. Discharge recommendations will be placed electronically. Medical management and dvt prophylaxis per primary team is appreciated. Please do not hesitate to call if you have any questions. Marissa Liu DPM [facility] [phone]
--- NOTE | 2017-09-13 12:00 | PCM.DC.POD ---
Weight Bearing Status: Full weight bearing Keep extremity elevated above heart level: Left Leg Call your doctor if your incision/area has: Sudden Increased Bleeding, Increased Pain/ Swelling, Increased Redness, Foul Smelling Discharge Call your doctor if you observe: Fever of 101 or Higher, Coldness, Increased Pain, Calf discomfort, Uncontrolled pain Cleanse incision/area with: Soap & Water, - - change left foot dressing every day with adaptic, gauze, kerlix. Do not soak the foot or leave open to the air. Allergies/Adverse Reactions: Allergies acetaminophen [From Percocet] Adverse Reaction (Unknown, Verified 09/11/17 11:11) Unknown oxycodone [From Percocet] Adverse Reaction (Unknown, Verified 09/11/17 11:11) Unknown amiodarone Adverse Reaction (Verified 09/11/17 11:11) affects his lungs/breathing azithromycin Adverse Reaction (Verified 09/11/17 11:11) Other PATIENT STATES HE LOST HIS HEARING AND HIS HAIR levofloxacin [From Levaquin] Adverse Reaction (Verified 09/11/17 12:23) Other linezolid [From Zyvox] Adverse Reaction (Verified 09/11/17 11:11) decreased platelets morphine Adverse Reaction (Verified 09/11/17 11:11) agitated tramadol Adverse Reaction (Verified 09/11/17 11:11) interferes with another medication he is on Medications to take at Discharge Albuterol Aerosols [Ventolin Aerosols] 2.5 mg INHALATION Q6H PRN PRN 06/02/17 Aspirin E.C. [Ecotrin] 81 mg PO DAILY@0800 06/02/17 Benzonatate [Tessalon Perle] 100 mg PO QHS 06/02/17 Carvedilol [Coreg] 12.5 mg PO BID 06/02/17 Clotrimazole [Lotrimin] 1 applicatio TOPICAL BID 06/02/17 Furosemide [Lasix] 20 mg PO QODAY 06/02/17 Spironolactone [Aldactone] 25 mg PO DAILY 06/02/17 Pantoprazole Sodium [Protonix] 20 mg PO BID #60 tab 07/16/17 budesonide-formoterol HFA 160 mcg-4.5 mcg/actuation aerosol inhaler 2 puff INHALATION BID 08/04/17 levothyroxine 75 mcg tablet 75 mcg PO DAILY tab 08/04/17 tiotropium bromide 18 mcg capsule with inhalation device 18 mcg INHALATION QDAY 08/06/17 venlafaxine ER 37.5 mg capsule,extended release 24 hr 112.5 mg PO DAILY cap 08/06/17 warfarin 2.5 mg tablet 2.5 mg PO MOTUWETHFR 09/02/17 Dronedarone Hydrochloride [Multaq] 400 mg PO BID 09/11/17 Warfarin [Coumadin ([facility])] 1.25 mg PO SUSA 09/11/17 Primary Care Physician: Anna Umana DO [Primary Care Provider] - Please Follow Up With: Marissa Liu DPM When: [facility]; call [phone]
--- NOTE | 2017-09-13 12:05 | RAD_ITS ---
STUDY: X-RAY - RIGHT KNEE REASON FOR EXAM: Male, 82 years old. Right knee pain. No known injury. TECHNIQUE: 3 view(s) of the knee. COMPARISON: April 13, 2015 FINDINGS: There is stable generalized osteopenia. There is a revision 3 component total knee arthroplasty in anatomic alignment with no complications noted. There is soft tissue opacification of the distal quadriceps tendon. There are vascular calcifications. RAD/Knee 1 or 2 Views IMPRESSION: Osteopenia with stable revision total knee arthroplasty without complications. No acute pathology. Electronically Signed: Bhupendra Hodge MD at 15:10 EDT , Service support ,
--- NOTE | 2017-09-13 12:36 | PCM.DC ---
- Discharge Diagnoses Current Active Problems: Current Active and Chronic Problems (Last Reviewed 08/06/17 @ 15:23 by Joelle Vega) Obesity (BMI 30.0-34.9) (Chronic) ALIVIA (obstructive sleep apnea) (Chronic) History of DVT (deep vein thrombosis) (Chronic) COPD (chronic obstructive pulmonary disease) (Chronic) CKD (chronic kidney disease) stage 3, GFR 30-59 ml/min (Chronic) Left leg cellulitis (Acute) Unspecified open wound, left foot, initial encounter (Acute) You will use the following diet at home:: Calorie/Carbohydrate Controlled (specify 1200, 1400, etc) Discharge Activity: Return to Normal Activity Weight Bearing Status: Full weight bearing Keep extremity elevated above heart level: Left Leg Call your doctor if your incision/area has: Sudden Increased Bleeding, Increased Pain/ Swelling, Increased Redness, Foul Smelling Discharge Call your doctor if you observe: Fever of 101 or Higher, Coldness, Increased Pain, Calf discomfort, Uncontrolled pain Cleanse incision/area with: Soap & Water, - - change left foot dressing every day with adaptic, gauze, kerlix. Do not soak the foot or leave open to the air. Allergies/Adverse Reactions: Allergies acetaminophen [From Percocet] Adverse Reaction (Unknown, Verified 09/11/17 11:11) Unknown oxycodone [From Percocet] Adverse Reaction (Unknown, Verified 09/11/17 11:11) Unknown amiodarone Adverse Reaction (Verified 09/11/17 11:11) affects his lungs/breathing azithromycin Adverse Reaction (Verified 09/11/17 11:11) Other PATIENT STATES HE LOST HIS HEARING AND HIS HAIR levofloxacin [From Levaquin] Adverse Reaction (Verified 09/11/17 12:23) Other linezolid [From Zyvox] Adverse Reaction (Verified 09/11/17 11:11) decreased platelets morphine Adverse Reaction (Verified 09/11/17 11:11) agitated tramadol Adverse Reaction (Verified 09/11/17 11:11) interferes with another medication he is on Medications to take at Discharge Albuterol Aerosols [Ventolin Aerosols] 2.5 mg INHALATION Q6H PRN PRN 06/02/17 Aspirin E.C. [Ecotrin] 81 mg PO DAILY@0800 06/02/17 Benzonatate [Tessalon Perle] 100 mg PO QHS 06/02/17 Carvedilol [Coreg] 12.5 mg PO BID 06/02/17 Clotrimazole [Lotrimin] 1 applicatio TOPICAL BID 06/02/17 Furosemide [Lasix] 20 mg PO QODAY 06/02/17 Spironolactone [Aldactone] 25 mg PO DAILY 06/02/17 Pantoprazole Sodium [Protonix] 20 mg PO BID #60 tab 07/16/17 budesonide-formoterol HFA 160 mcg-4.5 mcg/actuation aerosol inhaler 2 puff INHALATION BID 08/04/17 levothyroxine 75 mcg tablet 75 mcg PO DAILY tab 08/04/17 tiotropium bromide 18 mcg capsule with inhalation device 18 mcg INHALATION QDAY 08/06/17 venlafaxine ER 37.5 mg capsule,extended release 24 hr 112.5 mg PO DAILY cap 08/06/17 warfarin 2.5 mg tablet 2.5 mg PO MOTUWETHFR 09/02/17 Dronedarone Hydrochloride [Multaq] 400 mg PO BID 09/11/17 Warfarin [Coumadin] 1.25 mg PO SUSA 09/11/17 Ciprofloxacin [Cipro] 500 mg PO BID #14 tab 09/13/17 The following prescriptions were given: Ciprofloxacin [Cipro] 500 mg PO BID #14 tab Primary Care Physician: Anna Umana DO [Primary Care Provider] - Please follow up with your Primary Care Physician in: 1 Week Please Follow Up With: Marissa Liu DPM When: 1 week [facility]; call [phone] Please Follow Up With: Lee Aviles MD When: As routinely scheduled Proposed Discharge Date: 09/13/17
--- NOTE | 2017-09-13 12:57 | DCINST_ITS ---
- Discharge Diagnoses Current Active Problems: Current Active and Chronic Problems (Last Reviewed 08/06/17 @ 15:23 by Joelle Vega) Obesity (BMI 30.0-34.9) (Chronic) ALIVIA (obstructive sleep apnea) (Chronic) History of DVT (deep vein thrombosis) (Chronic) COPD (chronic obstructive pulmonary disease) (Chronic) CKD (chronic kidney disease) stage 3, GFR 30-59 ml/min (Chronic) Left leg cellulitis (Acute) Unspecified open wound, left foot, initial encounter (Acute) You will use the following diet at home:: Calorie/Carbohydrate Controlled ( specify 1200, 1400, etc) Discharge Activity: Return to Normal Activity Weight Bearing Status: Full weight bearing Keep extremity elevated above heart level: Left Leg Call your doctor if your incision/area has: Sudden Increased Bleeding, Increased Pain/ Swelling, Increased Redness, Foul Smelling Discharge Call your doctor if you observe: Fever of 101 or Higher, Coldness, Increased Pain, Calf discomfort, Uncontrolled pain Cleanse incision/area with: Soap & Water, - - change left foot dressing every day with adaptic, gauze, kerlix. Do not soak the foot or leave open to the air. Allergies/Adverse Reactions: Allergies acetaminophen [From Percocet] Adverse Reaction (Unknown, Verified 09/11/17 11:11 ) Unknown oxycodone [From Percocet] Adverse Reaction (Unknown, Verified 09/11/17 11:11) Unknown amiodarone Adverse Reaction (Verified 09/11/17 11:11) affects his lungs/breathing azithromycin Adverse Reaction (Verified 09/11/17 11:11) Other PATIENT STATES HE LOST HIS HEARING AND HIS HAIR levofloxacin [From Levaquin] Adverse Reaction (Verified 09/11/17 12:23) Other linezolid [From Zyvox] Adverse Reaction (Verified 09/11/17 11:11) decreased platelets morphine Adverse Reaction (Verified 09/11/17 11:11) agitated tramadol Adverse Reaction (Verified 09/11/17 11:11) interferes with another medication he is on Medications to take at Discharge Albuterol Aerosols [Ventolin Aerosols] 2.5 mg INHALATION Q6H PRN PRN 06/02/17 Aspirin E.C. [Ecotrin] 81 mg PO DAILY@0800 06/02/17 Benzonatate [Tessalon Perle] 100 mg PO QHS 06/02/17 Carvedilol [Coreg] 12.5 mg PO BID 06/02/17 Clotrimazole [Lotrimin] 1 applicatio TOPICAL BID 06/02/17 Furosemide [Lasix] 20 mg PO QODAY 06/02/17 Spironolactone [Aldactone] 25 mg PO DAILY 06/02/17 Pantoprazole Sodium [Protonix] 20 mg PO BID #60 tab 07/16/17 budesonide-formoterol HFA 160 mcg-4.5 mcg/actuation aerosol inhaler 2 puff INHALATION BID 08/04/17 levothyroxine 75 mcg tablet 75 mcg PO DAILY tab 08/04/17 tiotropium bromide 18 mcg capsule with inhalation device 18 mcg INHALATION QDAY 08/06/17 venlafaxine ER 37.5 mg capsule,extended release 24 hr 112.5 mg PO DAILY cap warfarin 2.5 mg tablet 2.5 mg PO MOTUWETHFR 09/02/17 Dronedarone Hydrochloride [Multaq] 400 mg PO BID 09/11/17 Warfarin [Coumadin] 1.25 mg PO SUSA 09/11/17 Ciprofloxacin [Cipro] 500 mg PO BID #14 tab 09/13/17 The following prescriptions were given: Ciprofloxacin [Cipro] 500 mg PO BID #14 tab Primary Care Physician: Anna Umana DO [Primary Care Provider] - Please follow up with your Primary Care Physician in: 1 Week Please Follow Up With: Marissa Liu DPM When: 1 week [facility]; call [phone] Please Follow Up With: Lee Aviles MD When: As routinely scheduled Proposed Discharge Date: 09/13/17
[2017-09-13 13:01] VITALS: PULSE 63; RESP 16
--- NOTE | 2017-09-13 13:12 | DS.PCM_ITS ---
<Chasity Salas - Last Filed: 09/13/17 13:27> Discharge Date and Diagnosis Date of Admission: 09/11/17 Date of Discharge: 09/13/17 - Primary Discharge Diagnosis Active and Suspected Problems (Last Reviewed 08/06/17 @ 15:23 by Joelle Vega) 1. 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) Atrial fibrillation (Chronic) Cardiac pacemaker in situ (Chronic) Ventricular tachycardia (Chronic) Chronic systolic congestive heart failure (Chronic) Presence of stent in coronary artery (Chronic ~06/20/04) PTCA/DO to mid RCA 06/20/04 H/O percutaneous transluminal coronary angioplasty (Chronic) 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) CABG x4-PABLITO to LAD, ZIMMERMAN to DX, SVG to CX, SVG to RCA 1985 Atherosclerotic heart disease of [place] coronary artery without angina pectoris (Chronic) CABG x4-PABLITO to LAD, ZIMMERMAN to DX, SVG to CX, SVG to RCA 1985; PTCA/DO to mid RCA 06/20/04 Ischemic cardiomyopathy (Chronic) Benign essential hypertension (Chronic) Type II diabetes mellitus (Chronic) HLD (hyperlipidemia) (Chronic) AICD (automatic cardioverter/defibrillator) present (Chronic) implantation 04/21; gen change and pocket revision 03/17/13 Hospital Course and Treatment Imaging Results: Diagnostic Data Chest X-Ray 09/11/17 11:47 IMPRESSION: Diffuse left lung base greater than mid lung opacities, may represent atelectasis, pleural fluid or pneumonia. No air bronchograms associated. Clinical correlation recommended. If clinically indicated, full inspiratory chest 2 view study may be more helpful. Cardiomegaly as described. No overt cardiac failure status post cardiac thoracic surgery and right pacemaker/defibrillator placement. Electronically Signed: Jed Barrios, at 13:31 EDT Tel , Service support , Foot X-Ray 09/11/17 12:32 IMPRESSION: Slight decrease in soft tissue swelling when compared to prior study. The remainder of the findings appear stable. Electronically Signed: Cody Alcala, DO at 13:23 EDT Tel [phone], Service support , Consultations 09/11/17 14:32 Consult: Onc/Wound/veneer drier tailer Routine Comment: Dr. Liu- Podiatry Dr. Sahu- ID Operations: None Procedures: None Summary of Care Provided: The patient is a 82 year old M admitted 09/11/2017 due to left lower extremity wound with redness. He has a past medical history of chronic kidney disease stage III, obesity, obstructive sleep apnea, chronic atrial fibrillation, history of DVT, chronic COPD with chronic hypoxic respiratory failure requiring 3 L nasal cannula at baseline, chronic systolic CHF, history of VT, status post AICD/pacemaker, CAD status post CABG ?4 and PCI, hypertension, hyperlipidemia, type 2 diabetes mellitus. Patient had an injury 08/08/2017 where he dropped his walker on the top of his left foot. He developed a hematoma which became infected and failed outpatient antibiotic therapy. He was treated with doxycycline and Ceftin are orally as outpatient in July. Patient had increased redness and drainage. Venous Doppler negative for DVT. X-ray of the left foot showed slight decrease in soft tissue swelling when compared to prior study. Stable findings. Patient was seen by podiatry and infectious disease during admission. He had incision and drainage of wound 09/11/2017 by podiatry. Cultures showed Pseudomonas. Patient's wound is now stable. Erythema has greatly decreased and there is no further drainage from wound on the dorsum of foot. Podiatry placed discharge instructions for wound care which includes soap and water and dry sterile dressing with Adaptic daily. He will follow-up with podiatry in 1 week. She will be discharged on ciprofloxacin 500 mg twice daily for 7 days. If he requires further antibiotic therapy, this will be further evaluated by podiatry at outpatient visit. Patient has been afebrile. Denies pain. Minimal leukocytosis. Patient's INR was noted to be elevated at 3.8. He will hold Coumadin today, 09/13/2017 and tomorrow, 09/14/2017. He will repeat INR on Friday, 10-01 which will be followed up with by [facility]. Patient follows with Dr. Hewitt. Other chronic medical conditions as noted above are stable at this time. Blood glucose has been well controlled and recent hemoglobin A1c 09/11/2017 was 5.8%. General: Alert, Oriented x3, Cooperative, Well developed, Well nourished HEENT: Atraumatic, PERRLA, Normocephalic Oral: Moist Mucosa, No Gingival or Mucosal Lesions/ Ulcerations Neck: Supple, No JVD, Negative Carotid Bruits Lungs: Clear to auscultation, Normal air movement, No rhonchi, No wheeze, No rales Cardiovascular: Regular rate, Regular Rhythm, Normal S1, Normal S2, No murmurs, No Ectopic Activity Abdomen: Bowel Sounds Present, Soft, Non Tender, Non-Distended, No Hepato- splenomegaly, Obese Extremities: No clubbing, No cyanosis, No edema Skin: Erythema of left distal leg improved. Left foot dressing removed with no notable drainage. Musculoskeletal: No Tenderness to Palpation of Joints or Extremities, No Muscle Wasting Lymphatic: No Cervical, Supraclavicular, or Inguinal Adenopathy Neurological: Cranial nerves II-XII grossly intact, Neuro grossly intact Psych/Mental Status: Normal Affect Patient seen and examined prior to discharge. Physical assessment as noted above. Patient is stable for discharge home with the follow-up recommendations as noted above This patient was seen by MARY Pereira under the supervision of Dr. Talbert. Discharge Diet: Low fat/ Low Cholesterol Discharge Activity: Return to Normal Activity Weight Bearing Status: Full weight bearing Keep extremity elevated above heart level: Left Leg Call your doctor if your incision/area has: Sudden Increased Bleeding, Increased Pain/ Swelling, Increased Redness, Foul Smelling Discharge Call your doctor if you observe: Fever of 101 or Higher, Coldness, Increased Pain, Calf discomfort, Uncontrolled pain Cleanse incision/area with: Soap & Water, - - change left foot dressing every day with adaptic, gauze, kerlix. Do not soak the foot or leave open to the air. Home Medications: Medications to take at Discharge Albuterol Aerosols [Ventolin Aerosols] 2.5 mg INHALATION Q6H PRN PRN 06/02/17 Aspirin E.C. [Ecotrin] 81 mg PO DAILY@0800 06/02/17 Benzonatate [Tessalon Perle] 100 mg PO QHS 06/02/17 Carvedilol [Coreg] 12.5 mg PO BID 06/02/17 Clotrimazole [Lotrimin] 1 applicatio TOPICAL BID 06/02/17 Furosemide [Lasix] 20 mg PO QODAY 06/02/17 Spironolactone [Aldactone] 25 mg PO DAILY 06/02/17 Pantoprazole Sodium [Protonix] 20 mg PO BID #60 tab 07/16/17 budesonide-formoterol HFA 160 mcg-4.5 mcg/actuation aerosol inhaler 2 puff INHALATION BID 08/04/17 levothyroxine 75 mcg tablet 75 mcg PO DAILY tab 08/04/17 tiotropium bromide 18 mcg capsule with inhalation device 18 mcg INHALATION QDAY 08/06/17 venlafaxine ER 37.5 mg capsule,extended release 24 hr 112.5 mg PO DAILY cap warfarin 2.5 mg tablet 2.5 mg PO MOTUWETHFR 09/02/17 Dronedarone Hydrochloride [Multaq] 400 mg PO BID 09/11/17 Warfarin [Coumadin] 1.25 mg PO SUSA 09/11/17 Ciprofloxacin [Cipro] 500 mg PO BID #14 tab 09/13/17 Following Prescrptions Were Given to Patient: Ciprofloxacin [Cipro] 500 mg PO BID #14 tab Primary Care Physician: Anna Umana DO [Primary Care Provider] - Please follow up with your Primary Care Physician in: 1 Week Please Follow Up With: Marissa Liu DPM When: 1 week [facility]; call [phone] Please Follow Up With: Lee Aviles MD When: As routinely scheduled Please Follow Up With: Sanya Hewitt MD When: As routinely scheduled Disposition: Home Minutes spent on discharge:: 35 Patient Condition:: Stable Medical Necessity - Tobacco Use Smoking Status: Former smoker Tobacco Use: Non-smoker Meaningful Use Info Meaningful Use Diagnoses (Choose all that apply): None applicable <Jaclyn Talbert E - Last Filed: 09/13/17 14:34> Discharge Date and Diagnosis - Secondary Discharge Diagnosis Chronic Problems (Last Reviewed 08/06/17 @ 15:23 by Joelle Vega) Obesity (BMI 30.0-34.9) (Chronic) ALIVIA (obstructive sleep apnea) (Chronic) History of DVT (deep vein thrombosis) (Chronic) COPD (chronic obstructive pulmonary disease) (Chronic) CKD (chronic kidney disease) stage 3, GFR 30-59 ml/min (Chronic) 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) Atrial fibrillation (Chronic) Cardiac pacemaker in situ (Chronic) Ventricular tachycardia (Chronic) Chronic systolic congestive heart failure (Chronic) Presence of stent in coronary artery (Chronic ~06/20/04) PTCA/DO to mid RCA 06/20/04 H/O percutaneous transluminal coronary angioplasty (Chronic) 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) CABG x4-PABLITO to LAD, ZIMMERMAN to DX, SVG to CX, SVG to RCA 1985 Atherosclerotic heart disease of [place] coronary artery without angina pectoris (Chronic) CABG x4-PABLITO to LAD, ZIMMERMAN to DX, SVG to CX, SVG to RCA 1985; PTCA/DO to mid RCA 06/20/04 Ischemic cardiomyopathy (Chronic) Benign essential hypertension (Chronic) Type II diabetes mellitus (Chronic) HLD (hyperlipidemia) (Chronic) AICD (automatic cardioverter/defibrillator) present (Chronic) implantation 04/21; gen change and pocket revision 03/17/13 Hospital Course and Treatment Imaging Results: 09/13/17 12:05 Knee 1 or 2 Views [RAD] Urgent Consultations 09/11/17 14:32 Consult: Onc/Wound/veneer drier tailer Routine Comment: Summary of Care Provided: Hospitalist note: Discharge summary above reviewed as well as physical examination and I agree with above discharge and treatment plan. Patient was admitted for left lower extremity wound with erythema and he was treated as a case of acute left lower extremity cellulitis/infected hematoma. He was treated with IV Zosyn and vancomycin. Venous Doppler of the left lower extremity revealed no evidence of acute DVT. His vital signs were stable and he was afebrile. Wound culture of the left foot revealed pseudomonas aeruginosa. I podiatry medicine consulted and recommended dressing of the left foot wound with IV antibiotics. Infectious disease consulted as well and recommended oral antibiotics when patient is admitted for discharge. Wound culture revealed pseudomonas aeruginosa that was sensitive to ciprofloxacin and Levaquin. Patient discharged home in a stable medical condition, discharged on ciprofloxacin 500 mg p.o. twice daily for 7 days of treatment, plan to follow-up with podiatry medicine in 1 week as well as follow-up with PCP in 1 week. . Minutes spent on discharge:: 32 Code Visit Inpatient E&M: [id number] Disch Hosp
[2017-09-13 14:00] VITALS: BP 89/49; PULSE 63; RESP 18; TEMP 36.1; O2SAT 92
[2017-09-13 15:00] VITALS: BP 101/46; PULSE 63; RESP 18; TEMP 36.4; O2SAT 96
[2017-09-13] MEDS: 0.9% NaCl VAD Flush 10 ML IV (15:27)
[2017-09-13 15:43] VITALS: BP 101/46; PULSE 63; RESP 18; TEMP 36.4; O2SAT 96
== END 2017-09-13 15:59 | disposition home or self-care (01) | DRG 603 ==
LOC: ED 13:11 → MS3 14:12
PROVIDERS: Hospitalist; Admitting Provider Family Medicine; Emergency Provider Emergency Medicine; Family Provider Internal Medicine; PCP Internal Medicine; Visit Provider Hospitalist
DX: L03.116 Cellulitis of left lower limb (principal); J96.11 Chronic respiratory failure with hypoxia; E11.22 Type 2 diabetes mellitus with diabetic chronic kidney disease; E11.40 Type 2 diabetes mellitus with diabetic neuropathy, unspecified; I13.0 Hypertensive heart and chronic kidney disease with heart failure and stage 1 through stage 4 chronic kidney disease, or unspecified chronic kidney disease; I50.22 Chronic systolic (congestive) heart failure; I48.2 Chronic atrial fibrillation; S91.302A Unspecified open wound, left foot, initial encounter; B96.5 Pseudomonas (aeruginosa) (mallei) (pseudomallei) as the cause of diseases classified elsewhere; I25.10 Atherosclerotic heart disease of native coronary artery without angina pectoris; J44.9 Chronic obstructive pulmonary disease, unspecified; Z96.653 Presence of artificial knee joint, bilateral; E66.9 Obesity, unspecified; G47.33 Obstructive sleep apnea (adult) (pediatric); N18.3 Chronic kidney disease, stage 3 (moderate); I25.5 Ischemic cardiomyopathy; E78.5 Hyperlipidemia, unspecified; K21.9 Gastro-esophageal reflux disease without esophagitis; Z86.718 Personal history of other venous thrombosis and embolism; Z79.01 Long term (current) use of anticoagulants; Z95.1 Presence of aortocoronary bypass graft; Z95.810 Presence of automatic (implantable) cardiac defibrillator; Z89.421 Acquired absence of other right toe(s); Z87.891 Personal history of nicotine dependence; Z79.899 Other long term (current) drug therapy; Z79.82 Long term (current) use of aspirin; Z99.81 Dependence on supplemental oxygen; Z68.33 Body mass index [BMI] 33.0-33.9, adult
CPT/HCPCS: 71045; 73560; 73630; 80048; 82962; 83036; 83735; 84443; 85025; 85027; 85610; 85652; 86140; 87070; 87077; 87184; 87186; 87205; 87640; 93005; 93971; 94640; 94667; 94668; 97162; 97166; 97530; 97802; 99283; J7030; J7040; A4216

== ENCOUNTER → 2017-09-17 12:31 | Outpatient (CLI) | payer MEDICARE, OTHER, SELFPAY ==
--- NOTE | 2017-09-17 12:34 | RAD_ITS ---
STUDY: X-RAY - LEFT KNEE REASON FOR EXAM: Male, 82 years old. Knee pain without injury TECHNIQUE: 2 view(s) of the knee. COMPARISON: None. FINDINGS: Status post right knee arthroplasty. No evidence of hardware failure or loosening. Evidence of acute fracture or dislocation. Soft tissue swelling. RAD/Knee 1 or 2 Views IMPRESSION: No acute findings with soft tissue swelling Electronically Signed: Kingsley Del Valle DO at 12:22 EDT Tel , Service support ,
--- NOTE | 2017-09-17 12:34 | RAD_ITS ---
STUDY: X-RAY CHEST REASON FOR EXAM: Male, 82 years old. Cough TECHNIQUE: PA and lateral views of the chest. COMPARISON: 09/11/2017 FINDINGS: Continued elevated right hemidiaphragm with small right effusion and airspace disease. Unchanged mild left lower lobe infiltrate. Sternal cerclage wires and vascular clips are present from a prior sternotomy and coronary artery bypass graft procedure (CABG). Moderate cardiomegaly with stable right chest wall pacing device. Normal mediastinum and zhao. Normal visualized pulmonary arteries. Normal visualized aortic arch and descending thoracic aorta. Normal visualized thoracic spine. Normal visualized ribs, clavicles, and shoulders. There is no demonstrated abnormality of the visualized soft tissue structures of the upper abdomen. RAD/Chest PA and Lateral IMPRESSION: No significant change from several days prior. Continued right pleural effusion and left lower lobe infiltrate. Electronically Signed: Kingsley Del Valle DO at 12:22 EDT Tel , Service support ,
--- NOTE | 2017-09-17 12:34 | RAD_ITS ---
STUDY: X-RAY - UNILATERAL RIBS ( RIGHT ) REASON FOR EXAM: Male, 82 years old. Cough with right rib pain TECHNIQUE: 4 view(s) of the ribs. COMPARISON: None. FINDINGS: Normal visualized ribs without a demonstrated fracture. Questionable right lower lobe pleural effusion. Overlying right chest wall pacing device limits evaluation of the right ribs RAD/Ribs Unil 2V No CXR IMPRESSION: No definitive rib fracture. Questionable right pleural effusion Electronically Signed: Kingsley Del Valle DO at 12:21 EDT Tel , Service support ,
== END ==
PROVIDERS: Family Provider Internal Medicine; PCP Internal Medicine; Visit Provider Internal Medicine
DX: R05 Cough (principal); R07.89 Other chest pain; M25.562 Pain in left knee
CPT/HCPCS: 71046; 71100; 73560

== ENCOUNTER → 2017-09-17 12:57 | Outpatient (CLI) | payer MEDICARE, OTHER, SELFPAY ==
[2017-09-17 13:34] LABS: ALB/GLOB Ratio 0.7 RATIO (0.9-2.4); AST(SGOT) 19 U/L (15-37); Alanine Aminotransfer ALT/SGPT 16 U/L (16-61); Albumin, Serum 2.2 g/dL (3.2-5.0); Alkaline Phosphatase 77 U/L (45-117); Anion Gap 11 (5-15); BUN 17 mg/dL (7-18); BUN/Creat Ratio 11.8 RATIO (10-20); Calcium,Total 7.8 mg/dL (8.5-10.1); Chloride 100 mmol/L (98-107); Creatinine, Serum 1.44 mg/dL (0.70-1.30); EST Glomerular Filtration Rate 50 mL/min (>60); Est Glom Filt Rate - Afr Amer 61 mL/min (>60); Globulin 3.1 g/dL (2.2-4.2); Glucose 88 mg/dL (74-106); Potassium 4.1 mmol/L (3.5-5.1); Protein, Total 5.3 g/dL (6.4-8.2); Sodium Level 135 mmol/L (136-145)
[2017-09-17 13:39] LABS: Absolute Neutrophil Count 8.3 X10^3/uL (2.0-7.7); Basophil# 0.02 X10^3/uL; Basophil% 0.2 % (0-1); Eosinophils% 0.8 % (0-5); Hematocrit 40.5 % (40-54); Lymphocyte % 16.1 % (19-41); Mean Corp Hgb Conc 32.1 g/gl (32-36); Mean Corpuscular Hgb 27.8 pg (27.0-32.0); Mean Corpuscular Volume 86.5 fL (80-94); Mean Platelet Vol. 9.6 fl (6.2-12.0); Monocyte# 1.31 X10^3/uL; Monocyte% 11.1 % (0-10); Neutrophil # 8.28 X10^3/uL (2.7-7.7); Neutrophil % 70.4 % (47-70); Platelet Count 293 K/mm3 (150-450); RBC Distribution Width CV 16.2 % (11.6-14.6); RBC Distribution Width SD 51.4 fl (35.1-43.9); Red Blood Count 4.68 M/mm3 (4.6-6.2); White Blood Count 11.8 K/mm3 (4.4-11.0)
[2017-09-17 13:40] LABS: POSITIVE COUNT NO; POSITIVE DIFFERENTIAL NO; POSITIVE MORPHOLOGY NO
[2017-09-17 13:46] LABS: Erythrocyte Sedimentation Rate 57 mm/hr (0-20)
== END ==
PROVIDERS: Family Provider Internal Medicine; PCP Internal Medicine; Visit Provider Internal Medicine
DX: R05 Cough (principal); R07.89 Other chest pain; M25.562 Pain in left knee; L03.90 Cellulitis, unspecified
CPT/HCPCS: 71046; 71100; 73560; 80053; 85025; 85652; 86140

== ENCOUNTER → 2017-09-18 10:31 | Outpatient (CLI) | payer MEDICARE, OTHER, SELFPAY ==
[2017-09-18 11:06] VITALS: BP 102/60; PULSE 59; RESP 18; TEMP 36; O2SAT 98; BMI 34.7
== END ==
PROVIDERS: Family Provider Internal Medicine; PCP Internal Medicine; Visit Provider Internal Medicine
DX: L03.90 Cellulitis, unspecified (principal)
CPT/HCPCS: 96365; 96366; 96367; J7050; A4216

== ENCOUNTER → 2017-09-19 10:19 | Outpatient (CLI) | payer MEDICARE, OTHER, SELFPAY ==
[2017-09-19 10:35] VITALS: BP 96/61; PULSE 69; RESP 20; TEMP 36.2; O2SAT 96; BMI 35.0
[2017-09-19] MEDS: Cefepime HCl 2 GM in 0.9% NS 100 ML Minibag Q12 IV (13:45)
[2017-09-20 10:45] VITALS: BP 106/64; PULSE 58; RESP 18; TEMP 36.6; O2SAT 97
== END ==
PROVIDERS: Family Provider Internal Medicine; PCP Internal Medicine; Visit Provider Internal Medicine
DX: L03.90 Cellulitis, unspecified (principal)
CPT/HCPCS: 96365; 96366 ×3; 96367; J7040; J7050; A4216

== ENCOUNTER 2017-09-20 10:21 | Outpatient (CLI) | payer MEDICARE, OTHER, SELFPAY ==
[2017-09-20 10:32] VITALS: BMI 35.7
[2017-09-20 10:50] VITALS: BP 106/64; PULSE 58; RESP 18; TEMP 36.6; O2SAT 97
[2017-09-20] MEDS: Cefepime HCl 2 GM in 0.9% NS 100 ML Minibag Q12 IV (10:56)
[2017-09-20] MEDS: 0.9% NaCl IVPB Med Flush (250 mL) 15 ML IV (10:56)
[2017-09-20] MEDS: 0.9% NaCl VAD Flush 10 ML IV ×2 (10:59→14:57)
[2017-09-20 14:57] VITALS: BP 101/59; PULSE 60; RESP 16; TEMP 36.5; O2SAT 97
== END 2017-09-20 15:15 | disposition home or self-care (01) ==
LOC: MEDOUTP 10:22 → MS3 11:10
PROVIDERS: Family Provider Internal Medicine; PCP Internal Medicine; Visit Provider Internal Medicine
DX: L03.90 Cellulitis, unspecified (principal)
CPT/HCPCS: 96365; 96366 ×3; 96367; J7040; J7050; A4216

== ENCOUNTER 2017-09-21 10:22 | Outpatient (CLI) | payer MEDICARE, OTHER, SELFPAY ==
[2017-09-21 11:04] VITALS: BP 97/57; PULSE 91; RESP 18; TEMP 36.6; O2SAT 99
[2017-09-21] MEDS: Cefepime HCl 2 GM in 0.9% NS 100 ML Minibag Q12 IV (11:06)
[2017-09-21] MEDS: 0.9% NaCl VAD Flush 10 ML IV ×2 (11:22→15:06)
[2017-09-21] MEDS: 0.9% NaCl IVPB Med Flush (250 mL) 15 ML IV (11:22)
[2017-09-21 11:40] LABS: Vancomycin, Trough Level 19.1 ug/mL (5.0-15.0)
[2017-09-21 15:21] VITALS: BP 105/64; PULSE 69; RESP 18; TEMP 36.6; O2SAT 99
== END 2017-09-21 15:22 | disposition home or self-care (01) ==
LOC: MEDOUTP 10:23 → MS3 10:24
PROVIDERS: Family Provider Internal Medicine; PCP Internal Medicine; Visit Provider Internal Medicine
DX: L03.90 Cellulitis, unspecified (principal)
CPT/HCPCS: 96365; 96366 ×2; 96367; 36415; 80202; J7040; J7050; A4216

== ENCOUNTER → 2017-09-22 10:34 | Outpatient (CLI) | payer MEDICARE, OTHER, SELFPAY ==
[2017-09-22 10:48] VITALS: BP 99/67; PULSE 62; RESP 20; TEMP 35.4; BMI 40.3
[2017-09-22] MEDS: Cefepime HCl 2 GM in 0.9% NS 100 ML Minibag Q12 IV (13:13)
== END ==
PROVIDERS: Family Provider Internal Medicine; PCP Internal Medicine; Visit Provider Internal Medicine
DX: L03.90 Cellulitis, unspecified (principal)
CPT/HCPCS: 96365; 96366 ×2; 96367; J7040; J7050; A4216

== ENCOUNTER → 2017-09-23 09:05 | Outpatient (CLI) | payer MEDICARE, OTHER, SELFPAY ==
[2017-09-23 09:20] VITALS: PULSE 79; RESP 16; TEMP 36; O2SAT 98
[2017-09-23] MEDS: Cefepime HCl 2 GM in 0.9% NS 100 ML Minibag Q12 IV (11:51)
== END ==
PROVIDERS: Family Provider Internal Medicine; PCP Internal Medicine; Visit Provider Internal Medicine
DX: L03.90 Cellulitis, unspecified (principal)
CPT/HCPCS: 96365; 96366 ×2; 96367; J7040; J7050; A4216

== ENCOUNTER → 2017-09-24 09:54 | Outpatient (CLI) | payer MEDICARE, OTHER, SELFPAY ==
[2017-09-24 10:13] VITALS: BP 108/56; PULSE 56; RESP 20; TEMP 35.9; O2SAT 99
[2017-09-24] MEDS: Cefepime HCl 2 GM in 0.9% NS 100 ML Minibag Q12 IV (12:26)
== END ==
PROVIDERS: Family Provider Internal Medicine; PCP Internal Medicine; Visit Provider Internal Medicine
DX: L03.90 Cellulitis, unspecified (principal)
CPT/HCPCS: 96365; 96366; 96367; J7040; J7050; A4216

== ENCOUNTER → 2017-09-26 14:50 | Outpatient (CLI) | payer MEDICARE, OTHER, SELFPAY ==
--- NOTE | 2017-09-26 14:51 | CT_ITS ---
STUDY: CT CHEST WITH CONTRAST REASON FOR EXAM: Male, 82 years old. Follow-up of abnormal chest radiograph. RADIATION DOSAGE (If Supplied By Facility): CTDIvol = ( 16.52 ) mGy, DLP = ( 652.85 ) mGycm TECHNIQUE: Transaxial imaging was performed following intravenous administration of 100 ml of Isovue 300 contrast material. Multiplanar coronal and sagittal images were reformatted. Individualized dose optimization techniques were used for this CT. COMPARISON: None. FINDINGS: Patient has an intracardiac pacemaker. There is moderate elevation of the right hemidiaphragm. There is patchy left lower lobe airspace consolidation with air bronchograms. Compressive atelectasis and airspace disease is visible in the right lower lobe. There is no demonstrated pleural abnormality. There is borderline cardiomegaly. There are calcifications of the coronary arteries. There are multiple small lymph nodes within the mediastinum, which are normal in size and morphology most compatible with reactive lymph hyperplasia. Normal hilar regions. Normal enhanced pulmonary arteries. There is atherosclerotic calcification of the aortic arch with tortuosity and elongation of the aortic arch and descending thoracic aorta. Maximum transverse dimension of the ascending thoracic aorta measures approximately 4.1 cm. There is demineralization of the thoracic spine. Patient has had a sternotomy. There is moderately severe multilevel thoracic spondylosis. There is deformity of right-sided rib probably related to old rib fracture. There are multiple calcified splenic granulomas. CT/Chest WITH Contrast IMPRESSION: 1. Bilateral basilar airspace disease and subsegmental atelectasis. 2. Sequela of coronary artery vascular disease. Electronically Signed: Najma Mae MD at 9:10 EDT , Service support ,
== END ==
PROVIDERS: Family Provider Internal Medicine; PCP Internal Medicine; Visit Provider Internal Medicine
DX: R93.8 Abnormal findings on diagnostic imaging of other specified body structures (principal)
CPT/HCPCS: 71260; Q9967; A4216

== ENCOUNTER → 2017-09-30 15:13 | Outpatient (CLI) | payer MEDICARE, OTHER, SELFPAY ==
--- NOTE | 2017-09-30 15:16 | VDUE_ITS ---
Reason For Study: LUE swelling Left Proximal Left jugular vein is spontaneous, widely patent, phasic, with no intraluminal echogenicity noted. Left subclavian vein is spontaneous, widely patent, phasic, with no intraluminal echogenicity noted. Left Arm Left axillary vein is spontaneous, patent, phasic, competent, compressible and demonstrates augmentation. Left brachial vein is compressible. Left cephalic vein is compressible. Left basilic vein is compressible. Left Lower Arm Left radial vein is compressible. Left ulnar vein is compressible. < Interpretation Summary Deep veins of the left upper extremity are patent and compressible segmentally. There is no evidence of deep vein thrombosis. The superficial veins of the left upper extremity, the basilic and cephalic veins, are patent and compressible. There is no evidence of left upper extremity superficial thrombophlebitis involving the veins imaged. Ordering Physician: Anna Umana Referring Physician: Anna Umana Performed By: Courtney Perez RVT
== END ==
PROVIDERS: Family Provider Internal Medicine; PCP Internal Medicine; Visit Provider Internal Medicine
DX: M79.89 Other specified soft tissue disorders (principal)
CPT/HCPCS: 93971

== ENCOUNTER → 2017-10-01 09:44 | Outpatient (CLI) | payer MEDICARE, OTHER, SELFPAY ==
[2017-10-01 09:54] VITALS: BP 99/65; PULSE 73; RESP 18; TEMP 36.4; O2SAT 97; BMI 35.0
== END ==
PROVIDERS: Family Provider Internal Medicine; PCP Internal Medicine; Visit Provider Internal Medicine
DX: L03.90 Cellulitis, unspecified (principal)
CPT/HCPCS: 96365; 96366 ×2; J7040; J7050; A4216

== ENCOUNTER → 2017-10-02 09:26 | Outpatient (CLI) | payer MEDICARE, OTHER, SELFPAY ==
[2017-10-02 09:32] VITALS: BP 111/70; PULSE 69; TEMP 36.6; O2SAT 96; BMI 18.6
== END ==
PROVIDERS: Family Provider Internal Medicine; PCP Internal Medicine; Visit Provider Internal Medicine
DX: L03.90 Cellulitis, unspecified (principal)
CPT/HCPCS: 96365; 96366 ×2; J7040; J7050; A4216

== ENCOUNTER → 2017-10-03 09:23 | Outpatient (CLI) | payer MEDICARE, OTHER, SELFPAY ==
[2017-10-03 09:28] VITALS: BP 95/55; PULSE 64; RESP 22; TEMP 35.8; O2SAT 96; BMI 35.0
== END ==
PROVIDERS: Family Provider Internal Medicine; PCP Internal Medicine; Visit Provider Internal Medicine
DX: L03.90 Cellulitis, unspecified (principal); R19.7 Diarrhea, unspecified
CPT/HCPCS: 96365; 96366 ×2; 87493; J7040; J7050; A4216

== ENCOUNTER → 2017-10-03 14:43 | Outpatient (CLI) | payer MEDICARE, OTHER, SELFPAY | PROVIDERS: Family Provider Internal Medicine; PCP Internal Medicine; Visit Provider Internal Medicine | DX: R19.7 Diarrhea, unspecified (principal) | CPT/HCPCS: 87493 ==

== ENCOUNTER → 2017-10-06 10:54 | Outpatient (CLI) | payer MEDICARE, OTHER, SELFPAY ==
--- NOTE | 2017-10-15 11:03 | LEAS ---
Arterial Study - Arterial Study Arterial Study: Patient: Jed Crane next Date of scan 10/06/[address] Umana next Interpreting physician Dr. Castro History patient with peripheral vascular disease with known coronary artery disease hypertension hyperlipidemia and diabetes. Here for evaluation. Interpretation: Right lower extremity with pulsatile flow slightly peaked waveforms noted from the low thigh down through the calf ankle out through the digits duplex at the ankle shows triphasic flow noted. JUAN shows 1.13 the posterior tibial noncompressible the dorsalis pedis with the digit brachial index 0.89. Next Left lower extremity with normal pulsatile flow again down from the thigh down to the calf ankle and digits again slightly peaked waveforms noted higher up. Good waveforms down through the digits. Duplex shows triphasic flow both vessels with an JUAN noncompressible the posterior tibial 1.32 in the dorsalis pedis. Digital brachial index 0. 6 3. Impression: 1. Right lower extremity with no evidence of significant arterial occlusive disease at rest with triphasic flow and an JUAN 1.13. 2. Left lower extremity no evidence of significant arterial occlusive disease at rest with the triphasic flow and an JUAN 1.32. 3. No evidence of significant small vessel disease with normal digit brachial index on the right 0.89 slightly diminished on the left and 0.63
== END ==
PROVIDERS: Family Provider Internal Medicine; PCP Internal Medicine; Visit Provider Internal Medicine
DX: I73.9 Peripheral vascular disease, unspecified (principal)
CPT/HCPCS: 93923

== ENCOUNTER → 2017-10-15 12:48 | Outpatient (CLI) | payer MEDICARE, OTHER, SELFPAY ==
--- NOTE | 2017-10-15 12:52 | RAD_ITS ---
STUDY: X-RAY - BILATERAL RIBS WITH CHEST REASON FOR EXAM: Male, 82 years old. Cough, bilateral mid rib pain. TECHNIQUE - RIBS: 8 view(s) of the ribs. TECHNIQUE - CHEST: Single frontal view of the chest. COMPARISON: Right rib series as well as PA and lateral chest x-ray September 17, 2017; CT chest/thorax September 26, 2017. FINDINGS - RIBS : There are old healed fracture deformities of the lateral/anterolateral right 5-8 ribs as well as old healed, displaced fracture deformity of the lateral right seventh rib. There is also mild healed fracture deformity of the anterior right ninth rib. There is old healed fracture deformity of the lateral left seventh rib, and question of old healed deformity of the lateral eighth rib as well. No demonstrated acute fractures. FINDINGS - CHEST: The multilead right subclavian cardiac pacemaker/AICD as well as the medial right anterior chest wall MediPort are unchanged. There is stable moderate elevation of right diaphragm. There is stable scarring or subsegmental atelectasis in the inferior right lung base, accompanied by mild lateral right pleural thickening. Calcified granulomata noted in the medial inferior right base. Interstitial stranding consistent with additional chronic disease in the left base is unchanged. There is no demonstrated pleural effusion. There is stable mild cardiac enlargement. Sternal cerclage wires and vascular clips are present from a prior sternotomy and coronary artery bypass graft procedure (CABG). Normal mediastinum and zhao. Normal visualized upper lobe pulmonary arteries. There is stable atherosclerotic calcification of the aortic arch with stable tortuosity of the descending thoracic segment. There are stable multilevel degenerative changes of the visualized thoracic spine. 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 There is no demonstrated abnormality of the visualized soft tissue structures of the upper abdomen. RAD/Ribs [place] Min 4V w/PA Chest IMPRESSION: RIBS: Old healed fracture deformities of the bilateral ribs, as described. The most prominent deformities of the lateral right seventh rib. No demonstrated acute fracture. CHEST: Otherwise, stable x-ray examination of the chest, as noted. Electronically Signed: Lui Contreras MD at 20:03 EDT , Service support ,
== END ==
PROVIDERS: Family Provider Internal Medicine; PCP Internal Medicine; Visit Provider Internal Medicine
DX: R07.81 Pleurodynia (principal)
CPT/HCPCS: 71111

== ENCOUNTER → 2017-10-27 09:39 | Outpatient (CLI) | payer MEDICARE, OTHER, SELFPAY ==
--- NOTE | 2017-10-27 09:41 | NM_ITS ---
CLINICAL: 82-year-old male with reported history of carcinoma of the prostate. WHOLE BODY 99m Tc MDP RADIONUCLIDE BONE SCINTIGRAPHY COMPARISON: Plain film radiograph report bilateral ribs 10/15/2017. FINDINGS: Following the intravenous administration of 25.6 mCi of 99m Tc MDP, whole body bone images reveal: 1. Increased radiopharmaceutical concentration is identified in the eighth thoracic vertebra posteriorly, the left anterolateral, anterior fourth-sixth and ninth ribs, right posterior third rib. 2. Enhanced tracer concentration is defined in the acromioclavicular compartments of both shoulders, sternoclavicular compartment of the right shoulder, glenohumeral compartment of the left shoulder, the right wrist, left hand, ninth-12th thoracic, third-fifth lumbar vertebra, the right midfoot. 3. The remaining skeletal structures are scintigraphically unremarkable with normal-appearing renal images and urinary bladder activity identified. The right-left knee arthroplasties demonstrate no evidence of significant abnormal increased radiopharmaceutical concentration. NM/Bone Scan Whole Body IMPRESSION: 1. The increase in radiopharmaceutical concentration identified in the right posterior third rib, eighth thoracic vertebra, the left anterior-anterolateral ribs is most consistent with trauma-fracture. Correlation with plain film radiography is recommended in the region of the thoracic spine in the setting of known prostate carcinoma. 2. Degenerative arthritis appears expressed in the bilateral shoulders, right wrist, left hand, thoracic and lumbar spine, the right midfoot. Electronically Signed: Devaughn Cool DO at 9:01 EDT Tel , Service support ,
== END ==
PROVIDERS: Family Provider Internal Medicine; PCP Internal Medicine; Visit Provider Internal Medicine
DX: S22.43XS Multiple fractures of ribs, bilateral, sequela (principal)
CPT/HCPCS: 78306; A4216

== ENCOUNTER 2017-10-28 12:02 | Inpatient (IN) | payer MEDICARE, OTHER, SELFPAY ==
[2017-10-28 12:05] VITALS: BP 109/60; PULSE 60; RESP 18; TEMP 36.6; O2SAT 96; BMI 35.9
--- NOTE | 2017-10-28 13:21 | CT_ITS ---
STUDY: CT BRAIN WITHOUT CONTRAST REASON FOR EXAM: Male, 82 years old. Head injury due to a fall. The patient is on Coumadin. RADIATION DOSAGE (If Supplied By Facility): CTDIvol = ( 44.99 ) mGy, DLP = ( 812.98 ) mGycm TECHNIQUE: Transaxial CT imaging of the brain was performed without administration of intravenous contrast material. Individualized dose optimization techniques were used for this CT. COMPARISON: Comparison is made with prior study dated November 30, 2016. FINDINGS: Normal soft tissue structures. Normal calvarium. There is moderate cerebral atrophy with widening of the extra-axial spaces and ventricular dilatation. There are areas of decreased attenuation within the white matter tracts of the supratentorial brain, consistent with microvascular disease changes. Normal basal ganglia and thalami. Normal brainstem. There is mild cerebellar atrophy. There is no intracranial hemorrhage. There are no findings of an acute ischemic infarction. Atherosclerotic calcification of the vertebral arteries and cavernous portions of the internal carotid arteries bilaterally. Normal visualized paranasal sinuses. CT/Brain/Head without Contrast IMPRESSION: Chronic involutional changes of the brain. Electronically Signed: Zi Rahman MD at 14:20 EDT Tel [phone], Service support ,
--- NOTE | 2017-10-28 13:22 | RAD_ITS ---
STUDY: X-RAY - RIGHT ELBOW REASON FOR EXAM: Male, 82 years old. Pain and laceration following a fall. TECHNIQUE: 4 view(s) of the elbow. COMPARISON: None. FINDINGS: Old avulsion fracture of the lateral distal humeral condyle. Old fracture of the radial head. Normal radiocapitellar and ulnotrochlear articulations. The soft tissue structures are unremarkable. RAD/Elbow min 3 Views IMPRESSION: No acute abnormality is seen. Electronically Signed: Zi Rahman MD at 15:02 EDT Tel [phone], Service support ,
--- NOTE | 2017-10-28 13:22 | RAD_ITS ---
STUDY: X-RAY - LEFT KNEE REASON FOR EXAM: Male, 82 years old. Status post fall pain TECHNIQUE: 2 view(s) of the knee. COMPARISON: September 17, 2017 left knee x-ray FINDINGS: There is a left knee arthroplasty. There is soft tissue swelling. There is absence of the patella component stable since prior study. There is a bony exostosis in the anterior aspect of the femur. There are surgical clips along the medial side of the left knee. RAD/Knee 4 or More Views IMPRESSION: Constrained left knee arthroplasty. There is soft tissue swelling. No visualized evidence of an acute fracture. Electronically Signed: Mariela Hicks MD at 15:24 EDT Tel , Service support ,
--- NOTE | 2017-10-28 13:22 | RAD_ITS ---
STUDY: X-RAY - RIGHT KNEE REASON FOR EXAM: Male, 82 years old. Laceration and pain following a fall. TECHNIQUE: 3 view(s) of the knee. COMPARISON: Comparison is made with prior study dated September 13, 2017. FINDINGS: Normal visualized distal femur. Normal visualized proximal tibia and fibula. Normal proximal tibiofibular articulation. The patient is status post total knee replacement of the constrained type. This is unchanged. Infrapatellar soft tissue swelling. Vascular calcifications. RAD/Knee 4 or More Views IMPRESSION: Soft tissue swelling. No fracture is seen. Electronically Signed: Zi Rahman MD at 14:30 EDT Tel [phone], Service support ,
--- NOTE | 2017-10-28 13:22 | RAD_ITS ---
STUDY: X-RAY - LEFT ELBOW REASON FOR EXAM: Male, 82 years old. Pain and laceration following a fall. TECHNIQUE: 3 view(s) of the elbow. COMPARISON: Comparison is made with prior examination dated March 05, 2017. FINDINGS: Nondisplaced radial neck fracture. Normal radiocapitellar and ulnotrochlear articulations. Small joint effusion. RAD/Elbow min 3 Views IMPRESSION: There is a nondisplaced radial neck fracture. Small joint effusion. Electronically Signed: Zi Rahman MD at 14:28 EDT Tel [phone], Service support ,
[2017-10-28 14:52] LABS: International Normalized Ratio 2.8; Prothrombin Time (Protime)PT. 29.8 SECONDS (11.7-14.9)
[2017-10-28 14:56] LABS: Anion Gap 8 (5-15); BUN 33 mg/dL (7-18); BUN/Creat Ratio 19.4 RATIO (10-20); Calcium,Total 7.9 mg/dL (8.5-10.1); Chloride 105 mmol/L (98-107); EST Glomerular Filtration Rate 41 mL/min (>60); Est Glom Filt Rate - Afr Amer 50 mL/min (>60); Estimated Creatinine Clearance 31.27 ml/min; Glucose 87 mg/dL (74-106); Potassium 4.6 mmol/L (3.5-5.1); Sodium Level 139 mmol/L (136-145)
[2017-10-28 14:59] VITALS: BP 108/73; PULSE 69; RESP 16; O2SAT 97
[2017-10-28 14:59] LABS: Absolute Lymphocyte Count 0.95 X10^3/ul (0.83-4.51); Absolute Neutrophil Count 8.3 X10^3/uL (2.0-7.7); Basophil# 0.01 X10^3/uL; Basophil% 0.1 % (0-1); Hematocrit 34.4 % (40-54); Hemoglobin 11.2 g/dl (13.0-16.5); Lymphocyte # 0.95 X10^3/ul (4.0); Lymphocyte % 9.6 % (19-41); Mean Corp Hgb Conc 32.6 g/gl (32-36); Mean Platelet Vol. 10.1 fl (6.2-12.0); Monocyte# 0.63 X10^3/uL; Monocyte% 6.4 % (0-10); Neutrophil # 8.31 X10^3/uL (2.7-7.7); Neutrophil % 83.7 % (47-70); POSITIVE COUNT NO; POSITIVE DIFFERENTIAL NO; POSITIVE MORPHOLOGY NO; Platelet Count 261 K/mm3 (150-450); RBC Distribution Width CV 16.6 % (11.6-14.6); RBC Distribution Width SD 51.8 fl (35.1-43.9); White Blood Count 9.9 K/mm3 (4.4-11.0)
[2017-10-28 15:03] VITALS: BP 108/79; PULSE 69; RESP 16; O2SAT 96
--- NOTE | 2017-10-28 15:39 | ED.DCSUM_ITS ---
- ER Visit Summary Date of Service: 10/28/17 Chief Complaint: Fall History of Present Illness: The patient is a 82 M who states that he was unable to get himself off of the commode this morning secondary to weakness. He called his daughter who came over and is able to help get him up. He is walking down the [place] when his left leg gave out and he fell onto his knees and elbows. He denies striking his head. Patient did not lose consciousness. He does have brisk bleeding from both knees. He is on Coumadin secondary to a history of A. fib and DVT. He states his INR yesterday was 4.7. His Coumadin was held last night. Physical Examination: Vital signs are unremarkable. Head neck examination was no obvious external sign of trauma. Slightly irregular. Lung sounds are clear. Abdomen is soft nontender. Patient has a skin tear noted to the right upper extremity with normal range of motion. He has mild tenderness to palpation of the left elbow. Lower external examination reveals large lacerations across the anterior surface of both knees. Active bleeding is noted. He has no focal muscular weakness. Test Results: ABC was normal white count with hemoglobin 11.2. Chemistry studies reveal BUN of 33 and creatinine 1.7. His INR is 2.8. CT the head shows chronic involutional changes. Left and right knee x-rays reveal soft tissue swelling with no evidence of fracture. Left elbow x-ray is read as a nondisplaced radial neck fracture. There is a small joint effusion noted. Right elbow x-ray reveals evidence of an old radial head fracture but no acute fracture. Emergency Department Course and Treatment: Patient did have bleeding from both the lacerations on arrival. The right knee laceration measures approximately 6 cm in length. Wound was anesthetized and sutured with both Vicryl and nylon suture. Surgifoam and pressure dressing was applied. Bleeding was well controlled following suture placement. Left knee laceration measures approximately 5 cm in laceration. This was also closed with both Vicryl and nylon suture. Surgifoam and pressure dressing was applied. At this time patient uses a walker for ambulation. He does not feel he is able to get up and walk at this time and is not able to use his walker secondary to the reported left elbow fracture. Left arm was placed in a sugar tong plus long posterior splint. Of note the patient has minimal tenderness to this left elbow and does have good range of motion. I recommended splinting at this time and repeat x-rays to be performed in 24-48 hours for further definitive evaluation. I will speak with the hospitalist regarding admission. Treatment Plan: [] Disposition: Admit Impression: 1. Mechanical fall 2. Left radial neck fracture status post splint 3. Bilateral anterior knee lacerations status post suture This note was generated with [employer] dictation software. It may contain incorrect words, spelling, and punctuation that were not noted in review of the chart prior to signing ED Disposition - Plan for ED Patient: Chief Complaint: Fall Referrals: Anna Umana DO [Primary Care Provider] -
--- NOTE | 2017-10-28 15:47 | NURSING ---
DR COATS FOR DR CABRERA
--- NOTE | 2017-10-28 15:49 | PCM.HP.STD ---
Problem List (1) FALL on knees and elbow Status: Acute (2) BILA KNEES LACERATION AND BLEEDING Status: Acute (3) gisel ON ckd Status: Acute (4) Obesity (BMI 30.0-34.9) Status: Chronic (5) ALIVIA (obstructive sleep apnea) Status: Chronic (6) History of DVT (deep vein thrombosis) Status: Chronic (7) COPD (chronic obstructive pulmonary disease) Status: Chronic Qualifiers: COPD type: unspecified COPD Qualified Code(s): J44.9 - Chronic obstructive pulmonary disease, unspecified (8) CKD (chronic kidney disease) stage 3, GFR 30-59 ml/min Status: Chronic (9) Left leg cellulitis Status: Acute (10) Unspecified open wound, left foot, initial encounter Status: Acute (11) nursing home (current) use of anticoagulants Status: Chronic (12) Atrial fibrillation Status: Chronic Qualifiers: Atrial fibrillation type: chronic Qualified Code(s): I48.2 - Chronic atrial fibrillation (13) Cardiac pacemaker in situ Status: Chronic (14) Ventricular tachycardia Status: Chronic (15) Chronic systolic congestive heart failure Status: Chronic (16) Presence of stent in coronary artery Status: Chronic Comment: PTCA/DO to mid RCA 06/20/04 (17) H/O percutaneous transluminal coronary angioplasty Status: Chronic (18) Old myocardial infarction Status: Chronic (19) Aortocoronary bypass status Status: Chronic Comment: CABG x4-PABLITO to LAD, ZIMMERMAN to DX, SVG to CX, SVG to RCA 1985 (20) 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 Comment: CABG x4-PABLITO to LAD, ZIMMERMAN to DX, SVG to CX, SVG to RCA 1985; PTCA/DO to mid RCA 06/20/04 (21) Ischemic cardiomyopathy Status: Chronic (22) Benign essential hypertension Status: Chronic (23) Type II diabetes mellitus Status: Chronic Qualifiers: Diabetes mellitus terminal gauger supervisor insulin use: without terminal gauger supervisor use Diabetes mellitus complication status: with unspecified complications Qualified Code(s): E11.8 - Type 2 diabetes mellitus with unspecified complications (24) HLD (hyperlipidemia) Status: Chronic Qualifiers: (25) AICD (automatic cardioverter/defibrillator) present Status: Chronic Comment: implantation 04/21; gen change and pocket revision 03/17/13 History of Present Illness Date of Admission: 10/28/17 Chief Complaint: Mechanical fall today The patient is a 82 year old M with multiple comorbidities as mentioned above was brought into ER after he fell down while walking on walker from bathroom on his knees and elbows. Patient was not able to get up from commode and then his daughter helped him to get up and then while walking his knees gave out and he fell. Patient had laceration in both knees and has been bleeding from both knees and right elbow. As per the ER physician, Dr. Whitaker he required sutures to stop the arterial bleed, right knee worse than left. Skin laceration was closed. Right knee laceration approximately 6 cm length and left knee laceration about 5 cm in length. The patient is on Coumadin and INR is 2.8 because of history of non-valvular A. fib. H&H 11.2/34.4. Creatinine 1.7, BUN 33. When I saw the patient, both knees are with compression bandage. Patient has right elbow subcutaneous hematoma and swelling. Left elbow fracture. Left elbow x-ray shows nondisplaced radial neck fracture with a small joint effusion. He had a history of both knee replacement with revision in both knees. Both knees were replaced at the same time about in 1999 and then he had left knee revision and lastly right knee revision in [address] Herndon. Past Medical History Past Medical History (Chronic Problems): Chronic Problems (Last Reviewed 08/06/17 @ 15:23 by Joelle Vega) Obesity (BMI 30.0-34.9) (Chronic) ALIVIA (obstructive sleep apnea) (Chronic) History of DVT (deep vein thrombosis) (Chronic) COPD (chronic obstructive pulmonary disease) (Chronic) CKD (chronic kidney disease) stage 3, GFR 30-59 ml/min (Chronic) nursing home (current) use of anticoagulants (Chronic) Atrial fibrillation (Chronic) Cardiac pacemaker in situ (Chronic) Ventricular tachycardia (Chronic) Chronic systolic congestive heart failure (Chronic) Presence of stent in coronary artery (Chronic ~06/20/04) PTCA/DO to mid RCA 06/20/04 H/O percutaneous transluminal coronary angioplasty (Chronic) 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) CABG x4-PABLITO to LAD, ZIMMERMAN to DX, SVG to CX, SVG to RCA 1985 Atherosclerotic heart disease of hoopa coronary artery without angina pectoris (Chronic) CABG x4-PABLITO to LAD, ZIMMERMAN to DX, SVG to CX, SVG to RCA 1985; PTCA/DO to mid RCA 06/20/04 Ischemic cardiomyopathy (Chronic) Benign essential hypertension (Chronic) Type II diabetes mellitus (Chronic) HLD (hyperlipidemia) (Chronic) AICD (automatic cardioverter/defibrillator) present (Chronic) implantation 04/21; gen change and pocket revision 03/17/13 Allergies ceftriaxone Adverse Reaction (Severe, Verified 10/28/17 12:08) Unknown fexofenadine Adverse Reaction (Severe, Verified 10/28/17 12:08) Cough furosemide [From Lasix] Adverse Reaction (Severe, Verified 10/28/17 12:08) Unknown prednisone Adverse Reaction (Severe, Verified 10/28/17 12:08) Unknown acetaminophen [From Percocet] Adverse Reaction (Unknown, Verified 10/28/17 12:08) Unknown oxycodone [From Percocet] Adverse Reaction (Unknown, Verified 10/28/17 12:08) Unknown amiodarone Adverse Reaction (Verified 10/28/17 12:08) affects his lungs/breathing azithromycin Adverse Reaction (Verified 10/28/17 12:08) Other PATIENT STATES HE LOST HIS HEARING AND HIS HAIR levofloxacin [From Levaquin] Adverse Reaction (Verified 10/28/17 12:08) Other linezolid [From Zyvox] Adverse Reaction (Verified 10/28/17 12:08) decreased platelets morphine Adverse Reaction (Verified 10/28/17 12:08) agitated tramadol Adverse Reaction (Verified 10/28/17 12:08) interferes with another medication he is on Home Medications: Ambulatory Orders Medication Instructions Recorded Albuterol Aerosols [Ventolin 2.5 mg INHALATION Q6H PRN PRN 06/02/17 Aerosols] Aspirin E.C. [Ecotrin] 81 mg PO DAILY@0800 06/02/17 Benzonatate [Tessalon Perle] 100 mg PO QHS 06/02/17 Carvedilol [Coreg] 12.5 mg PO BID 06/02/17 Clotrimazole [Lotrimin] 1 applicatio TOPICAL BID 06/02/17 Furosemide [Lasix] 20 mg PO QODAY 06/02/17 Spironolactone [Aldactone] 25 mg PO DAILY 06/02/17 budesonide-formoterol HFA 160 2 puff INHALATION BID 08/04/17 mcg-4.5 mcg/actuation aerosol inhaler levothyroxine 75 mcg tablet 75 mcg PO MOTUWETHFRSA tab 08/04/17 tiotropium bromide 18 mcg capsule 18 mcg INHALATION QDAY 08/06/17 with inhalation device warfarin 2.5 mg tablet 2.5 mg PO WE 09/02/17 Dronedarone Hydrochloride [Multaq] 400 mg PO BID 09/11/17 Warfarin [Coumadin] 1.25 mg PO SUMOTUTHFRSA 09/11/17 Ciprofloxacin HCl [Ciprofloxacin 500 mg PO BID 10/28/17 HCl] Levothyroxine [Synthroid] 150 mcg PO SHEPHERD 10/28/17 Metoclopramide [Metoclopramide HCl] 5 mg PO QHS 10/28/17 Pantoprazole Sodium [Protonix] 20 mg PO BID 10/28/17 Venlafaxine HCl [Venlafaxine HCl 150 mg PO DAILY 10/28/17 ER] Surgical History: coronary bypass surgery, total knee arthroplasty - BL, - - 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 Jennings, PCI/stents, AICD placement Psychiatric History: No pertinent psych hx Smoking Status: Former smoker - *Family History Maternal History Items: No pertinent history Paternal History Items: No pertinent history Review of Systems Constitutional: Reports: Fatigue. Denies: Chills, Fever, Weight Change HEENT: Denies: Head Aches, Sinus Congestion, Sinus Drainage Cardiovascular: Denies: Chest Pain, Palpitations Respiratory: Reports: Cough - Chronic, Shortness of breath upon exertion, Wheezing. Denies: Shortness of breath at rest, Sputum production Gastrointestinal: Denies: Abdominal Pain, Nausea, Vomiting Genitourinary: Denies: Dysuria Musculoskeletal: Reports: Joint Pain, Joint swelling, Joint Tenderness, Muscle pain Skin: Denies: Rash, Wounds Neurological: Denies: Numbness, Tingling, Focal weakness Psychiatric: Denies: Anxiety, Depression, Homicidal Ideations, Suicidal Ideations Hematologic/ Lymphatic: Denies: Easy Bruising, Easy Bleeding VTE Information - Inpt Only VTE Present on Admission: No VTE Mechan Device Prophylaxis: SCD's Reason prophylaxis not ordered:: Medical Contraindication Patient Problems: Active and Suspected Problems (Last Reviewed 08/06/17 @ 15:23 by Joelle Vega) FALL on knees and elbow (Acute) BILA KNEES LACERATION AND BLEEDING (Acute) gisel ON ckd (Acute) - Physical Exam General: Alert, Oriented x3, Cooperative HEENT: Atraumatic, PERRLA, EOMI, Normocephalic Neck: Supple, No JVD, Negative Carotid Bruits Lungs: Diminished, Rhonchi, Short of Breath Cardiovascular: Regular rate, No murmurs Abdomen: Bowel Sounds Present, Soft, Non Tender, Non-Distended Extremities: Capillary Refill Less than 3 Seconds, Edema Skin: No rashes, No breakdown Musculoskeletal: Arthritic Changes, Muscle Wasting, Tenderness - both knees, on swelling and pressure bandage after sutures. Neurological: Cranial nerves II-XII grossly intact Psych/Mental Status: Normal Affect, Appropriate Vital Signs Temp Pulse Resp BP Pulse Ox 97.8 F 69 16 108/79 96 10/28/17 12:05 10/28/17 15:03 10/28/17 15:03 10/28/17 15:03 10/28/17 15:03 Oxygen Flow Rate (L/min) 3 Oxygen Delivery Method Nasal Cannula Weight: 222 lb 3.615 oz Body Mass Index (BMI) 35.9 Laboratory Tests Past 24 Hrs 10/28/17 10/28/17 10/28/17 14:35 14:35 14:35 WBC 9.9 RBC 4.00 L Hgb 11.2 L Hct 34.4 L MCV 86.0 MCH 28.0 MCHC 32.6 RDW 16.6 H RDW Differential 51.8 H Plt Count 261 MPV 10.1 Immature Gran % (Auto) 0.200 Neut % (Auto) 83.7 H Lymph % (Auto) 9.6 L Livingston % (Auto) 6.4 Eos % (Auto) 0.0 Baso % (Auto) 0.1 Absolute Neuts (auto) 8.3 H Absolute Lymphs (auto) 0.95 Total Counted Not Reportable PT 29.8 H INR 2.8 Sodium 139 Potassium 4.6 Chloride 105 Carbon Dioxide 26.0 Anion Gap 8 BUN 33 H Creatinine 1.70 H Estim Creat Clear Calc 31.27 Est GFR (MDRD) Af Amer 50 L Est GFR (MDRD) Non-Af 41 L BUN/Creatinine Ratio 19.4 Glucose 87 Calcium 7.9 L Assessment/Plan Active and Suspected Problems (Last Reviewed 08/06/17 @ 15:23 by Joelle Vega) FALL on knees and elbow (Acute) BILA KNEES LACERATION AND BLEEDING (Acute) gisel ON ckd (Acute) The patient is a 82 year old M with multiple comorbidities as mentioned above was brought into ER after he fell down while walking on walker from bathroom on his knees and elbows. Patient was not able to get up from commode and then his daughter helped him to get up and then while walking his knees gave out and he fell. Patient had laceration in both knees and has been bleeding from both knees and right elbow. As per the ER physician, Dr. Whitaker he required sutures to stop the arterial bleed, right knee worse than left. Skin laceration was closed. Right knee laceration approximately 6 cm length and left knee laceration about 5 cm in length. The patient is on Coumadin and INR is 2.8 because of history of non-valvular A. fib. H&H 11.2/34.4. Creatinine 1.7, BUN 33. When I saw the patient, both knees are with compression bandage. Patient has right elbow subcutaneous hematoma and swelling. Left elbow fracture. Left elbow x-ray shows nondisplaced radial neck fracture with a small joint effusion. He had a history of both knee replacement with revision in both knees. Both knees were replaced at the same time about in 1999 and then he had left knee revision and lastly right knee revision in [address] Herndon. 1. Mechanical fall with skin subcutaneous laceration both knees and left radial neck fracture with a small joint effusion: Patient is being admitted [facility] floor. Orthopedic surgeon Dr. Herndon is been consulted. Pain control. Continue compression bandage on both knees. If further bleeding from the knees, needs to be reassessed and possible revision of sutures. H&H every 6 hourly and transfuse if his hemoglobin drops less than 8 g percent. PT and OT. Hold Coumadin. 2. Left radial neck fracture fracture with small joint effusion: Patient has left below-knee cast done by ER physician Dr. Whitaker. 3. Acute kidney injury on CKD stage III, most probably from diuretic with history of chronic systolic heart failure, coronary artery disease, hypertension and diabetic nephropathy: Hold her diuretic. Gentle hydration and monitor electrolytes and kidney function. Monitor intake/output. 4. Cardiac conditions: Coronary artery disease status post quadruple bypass 1985, multiple stents, chronic systolic heart failure, history of V. tach, status post AICD in April 2006, chronic A. fib: Continue the cardiac medications except diuretics. Hold Coumadin and aspirin. Continue carvedilol 5. Chronic pulmonary conditions/diseases: COPD, possible bronchiectasis with pulmonary fibrosis and obstructive sleep apnea with morbid obesity: Patient has chronic cough and follows Dr. Davis. I think as per his he also has bronchiectasis and pulmonary fibrosis. Continue Symbicort 160/4.5 2 puffs twice daily and bronchodilator as needed. 6. History of DVT, peripheral arterial disease: 7. Type 2 diabetes mellitus: Accu-Chek before meals and at bedtime and cover with NovoLog sliding scale. A1c tomorrow a.m. Advanced directive: Patient has living will, with power of civil attorney Ms. Maricarmen Crane his . Discussed with the patient and his and they do not want aggressive life saving artificial support including mechanical ventilator, intubation and chest compression, therefore DNR CC arrest. Living will reviewed. Total time spent in [id number] encounter and discussion with advanced directive: 17 minutes Laboratory Results 10/28/17 14:35: WBC 9.9, RBC 4.00 L, Hgb 11.2 L, Hct 34.4 L, MCV 86.0, MCH 28.0, MCHC 32.6, RDW 16.6 H, RDW Differential 51.8 H, Plt Count 261, MPV 10.1, Immature Gran % (Auto) 0.200, Neut % (Auto) 83.7 H, Lymph % (Auto) 9.6 L, Livingston % (Auto) 6.4, Eos % (Auto) 0.0, Baso % (Auto) 0.1, Absolute Neuts (auto) 8.3 H, Absolute Lymphs (auto) 0.95, Total Counted Not Reportable 10/28/17 14:35: PT 29.8 H, INR 2.8 10/28/17 14:35: Sodium 139, Potassium 4.6, Chloride 105, Carbon Dioxide 26.0, Anion Gap 8, BUN 33 H, Creatinine 1.70 H, Estim Creat Clear Calc 31.27, Est GFR (MDRD) Af Amer 50 L, Est GFR (MDRD) Non-Af 41 L, BUN/Creatinine Ratio 19.4, Glucose 87, Calcium 7.9 L Clinical Impression(s) from Imaging Studies Brain CT 10/28/17 13:21 IMPRESSION: Chronic involutional changes of the brain. Electronically Signed: Zi Rahman MD at 14:20 EDT Tel [phone], Service support , Elbow X-Ray 10/28/17 13:22 IMPRESSION: There is a nondisplaced radial neck fracture. Small joint effusion. Electronically Signed: Zi Rahman MD at 14:28 EDT Tel [phone], Service support , Elbow X-Ray 10/28/17 13:22 IMPRESSION: No acute abnormality is seen. Electronically Signed: Zi Rahman MD at 15:02 EDT Tel [phone], Service support , Knee X-Ray 10/28/17 13:22 IMPRESSION: Constrained left knee arthroplasty. There is soft tissue swelling. No visualized evidence of an acute fracture. Electronically Signed: Mariela Hicks MD at 15:24 EDT Tel , Service support , Knee X-Ray 10/28/17 13:22 IMPRESSION: Soft tissue swelling. No fracture is seen. Electronically Signed: Zi Rahman MD at 14:30 EDT Tel [phone], Service support , Code Visit Inpatient E&M: 81344 Init Hosp L3 Procedures: 80215 Advncd Care Plan 30 Min
--- NOTE | 2017-10-28 15:50 | NURSING ---
211 FALL ON KNEES/ELBOW, FX OF LEFT RADIUS NECK PAULY
[2017-10-28] MEDS: HYDROcodone Bitartrate/Apap 5/325 Tablet PO (16:09)
[2017-10-28 16:10] VITALS: BP 112/66; PULSE 60; RESP 20; O2SAT 98
[2017-10-28 16:37] VITALS: BMI 34.0
--- NOTE | 2017-10-28 16:42 | CASEMGMT ---
Social Work Note Attempted to see pt before transfer to floor and pt already left unit. Chasity Perez, DIRECTOR PROCESS, [employer]
[2017-10-28 16:47] VITALS: BMI 34.1
[2017-10-28] MEDS: Ipratropium/Albuterol Sulfate 3 ML AMPUL.NEB INHALATION (19:08)
[2017-10-28 19:09] VITALS: PULSE 60; RESP 16; O2SAT 97
[2017-10-28] MEDS: Budesonide Respules 0.5 MG/2 ML AMPUL.NEB. INHALATION (19:09)
--- NOTE | 2017-10-28 19:09 | CPS ---
pt on 2L NC and requested to be increased to 3L. wears 3L @ home.
[2017-10-28 19:14] LABS: Hematocrit 33.4 % (40-54); Hemoglobin 11.2 g/dl (13.0-16.5)
[2017-10-28 19:34] LABS: AST(SGOT) 21 U/L (15-37); Alanine Aminotransfer ALT/SGPT 18 U/L (16-61); Albumin, Serum 2.2 g/dL (3.2-5.0); Alkaline Phosphatase 126 U/L (45-117); Bilirubin, Direct 0.22 mg/dL (0.00-0.30); Globulin 2.9 g/dL (2.2-4.2); Protein, Total 5.1 g/dL (6.4-8.2)
--- NOTE | 2017-10-28 20:55 | CON.PCM_ITS ---
Reason for Consult Date of Consultation: 10/28/17 History of Present Illness: The patient is a 82 year old male with multiple medical problems including knee revision surgeries by Dr. Sanford and Dr. Herndon. Patient normally uses a walker and a knee brace on the left knee when ambulating. Patient states he was walking today with his walker and no left knee brace, when his left knee gave out, and he fell lacerating both knees and both elbows. He was seen and treated at the emergency room. I was not notified until patient was admitted by the hospitalist service several hours later. he denies significant left elbow pain. Does complain of some knee pain. Denies head injury or loss of consciousness. Patient is on Coumadin due to history of blood clots. Recently was started on Cipro by his milk and cream grader according to his . [] Past Medical History Past Medical History (Chronic Problems): Chronic Problems (Last Reviewed 08/06/17 @ 15:23 by Joelle Vega) Obesity (BMI 30.0-34.9) (Chronic) ALIVIA (obstructive sleep apnea) (Chronic) History of DVT (deep vein thrombosis) (Chronic) COPD (chronic obstructive pulmonary disease) (Chronic) CKD (chronic kidney disease) stage 3, GFR 30-59 ml/min (Chronic) senior care (current) use of anticoagulants (Chronic) Atrial fibrillation (Chronic) Cardiac pacemaker in situ (Chronic) Ventricular tachycardia (Chronic) Chronic systolic congestive heart failure (Chronic) Presence of stent in coronary artery (Chronic ~06/20/04) PTCA/DO to mid RCA 06/20/04 H/O percutaneous transluminal coronary angioplasty (Chronic) 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) CABG x4-PABLITO to LAD, ZIMMERMAN to DX, SVG to CX, SVG to RCA 1985 Atherosclerotic heart disease of [place] coronary artery without angina pectoris (Chronic) CABG x4-PABLITO to LAD, ZIMMERMAN to DX, SVG to CX, SVG to RCA 1985; PTCA/DO to mid RCA 06/20/04 Ischemic cardiomyopathy (Chronic) Benign essential hypertension (Chronic) Type II diabetes mellitus (Chronic) HLD (hyperlipidemia) (Chronic) AICD (automatic cardioverter/defibrillator) present (Chronic) implantation 04/21; gen change and pocket revision 03/17/13 Allergies ceftriaxone Adverse Reaction (Severe, Verified 10/28/17 12:08) Unknown fexofenadine Adverse Reaction (Severe, Verified 10/28/17 12:08) Cough furosemide [From Lasix] Adverse Reaction (Severe, Verified 10/28/17 12:08) Unknown prednisone Adverse Reaction (Severe, Verified 10/28/17 12:08) Unknown acetaminophen [From Percocet] Adverse Reaction (Unknown, Verified 10/28/17 12:08 ) Unknown oxycodone [From Percocet] Adverse Reaction (Unknown, Verified 10/28/17 12:08) Unknown amiodarone Adverse Reaction (Verified 10/28/17 12:08) affects his lungs/breathing azithromycin Adverse Reaction (Verified 10/28/17 12:08) Other PATIENT STATES HE LOST HIS HEARING AND HIS HAIR levofloxacin [From Levaquin] Adverse Reaction (Verified 10/28/17 12:08) Other linezolid [From Zyvox] Adverse Reaction (Verified 10/28/17 12:08) decreased platelets morphine Adverse Reaction (Verified 10/28/17 12:08) agitated tramadol Adverse Reaction (Verified 10/28/17 12:08) interferes with another medication he is on Home Medications: Ambulatory Orders Medication Instructions Recorded Albuterol Aerosols [Ventolin 2.5 mg INHALATION Q6H PRN PRN 06/02/17 Aerosols] Aspirin E.C. [Ecotrin] 81 mg PO DAILY@0800 06/02/17 Benzonatate [Tessalon Perle] 100 mg PO QHS 06/02/17 Carvedilol [Coreg] 12.5 mg PO BID 06/02/17 Clotrimazole [Lotrimin] 1 applicatio TOPICAL BID 06/02/17 Furosemide [Lasix] 20 mg PO QODAY 06/02/17 Spironolactone [Aldactone] 25 mg PO DAILY 06/02/17 budesonide-formoterol HFA 160 2 puff INHALATION BID 08/04/17 mcg-4.5 mcg/actuation aerosol inhaler levothyroxine 75 mcg tablet 75 mcg PO MOTUWETHFRSA tab 08/04/17 tiotropium bromide 18 mcg capsule 18 mcg INHALATION QDAY 08/06/17 with inhalation device warfarin 2.5 mg tablet 2.5 mg PO WE 09/02/17 Dronedarone Hydrochloride [Multaq] 400 mg PO BID 09/11/17 Warfarin [Coumadin] 1.25 mg PO SUMOTUTHFRSA 09/11/17 Ciprofloxacin HCl [Ciprofloxacin 500 mg PO BID 10/28/17 HCl] Levothyroxine [Synthroid] 150 mcg PO SHEPHERD 10/28/17 Metoclopramide [Metoclopramide HCl] 5 mg PO QHS 10/28/17 Pantoprazole Sodium [Protonix] 20 mg PO BID 10/28/17 Venlafaxine HCl [Venlafaxine HCl 150 mg PO DAILY 10/28/17 ER] Surgical History: coronary bypass surgery, total knee arthroplasty - BL, - - 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 Jennings, PCI/stents, AICD placement Psychiatric History: No pertinent psych hx Smoking Status: Former smoker Tobacco Use: Cigarettes - *Family History Maternal History Items: No pertinent history Paternal History Items: No pertinent history Patient Problems: Active and Suspected Problems (Last Reviewed 08/06/17 @ 15:23 by Joelle Vega) FALL on knees and elbow (Acute) BILA KNEES LACERATION AND BLEEDING (Acute) gisel ON ckd (Acute) Objective: he has bandage on right elbow, right and left knee. Patient has splint on left elbow. Right elbow bandage removed. There is a skin tear involving the dorsal medial aspect of the upper forearm measuring approximately 6 cm x 2 cm open region. No active bleeding. No foul odor. Good range of motion of the right shoulder elbow wrist and fingers without pain. Soft tissue bandage reapplied. Left elbow bandage removed splint removed. He has no pain on palpation at the shoulder elbow wrist or fingers. He has good motion at those areas. He has 1 Band-Aid over the elbow which was not removed. He had no pain on palpation of the radial head. No pain with pronation supination of the radial head. 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 No signs of infection. Elbow splint was not reapplied. Left knee bandage removed showing an upside down V-shaped laceration involving the distal part of the incision extending laterally with the edges were all reapproximated with sutures. Overall length about 5 cm. there is a hematoma but no expressible drainage. No obvious knee joint involvement. He is able to do a straight leg raise on the left. He has no calf pain on the left. No significant bony tenderness at the left knee. Knee seems ligamentously stable with gentle testing. Soft tissue knee bandage reapplied Right knee bandage was removed showing a longitudinal laceration starting at the distal part of the incision extending medially proximally about 6 cm. There is a hematoma at the site. No expressible drainage. No obvious knee effusion. No bony tenderness. He is able to do a straight leg raise on the right. No calf pain or swelling. Negative Homans sign. Right knee seems stable. No Hip pain with motion. Negative straight leg raise. Foot drop noted on left. X-rays 4 views right knee shows a cemented stem knee revision hinged in good position without obvious loosening failure fracture. X-rays 2 views left knee shows a minimally cemented revision with press-fit stems, previous papillectomy, and nilton. No obvious acute fracture dislocation. XRays 4 views right elbow shows degenerative changes of the radiocapitellar joint. Question old evulsion fracture at the lateral distal humerus. Bone spurs about the radial head. X-rays left elbow 3 views show degenerative changes to a lesser extent. Reported as radial neck fracture. Based on my review of the x-rays and clinical exam I do not suspect a radial neck fracture. Was discussed with the hospitalist and pts nurse. Laboratory work vital signs reviewed. - Physical Exam Vital Signs Temp Pulse Resp BP Pulse Ox 97.8 F 60 16 112/66 97 10/28/17 12:05 10/28/17 19:09 10/28/17 19:09 10/28/17 16:10 10/28/17 19:09 Oxygen Flow Rate (L/min) 3 Oxygen Delivery Method Nasal Cannula Weight: 95.753 kg Body Mass Index (BMI) 34.0 Intake and Output for Last 24 Hours 10/26/17 10/27/17 10/28/17 23:59 23:59 23:59 Intake Total 120 / 120 Output Total 125 / 125 Balance -5 / -5 Laboratory Tests Past 24 Hrs 10/28/17 10/28/17 18:50 18:50 Hgb 11.2 L Hct 33.4 L Total Bilirubin 0.40 Direct Bilirubin 0.22 AST 21 ALT 18 Alkaline Phosphatase 126 H Total Protein 5.1 L Albumin 2.2 L Globulin 2.9 Assessment/Plan Active and Suspected Problems (Last Reviewed 08/06/17 @ 15:23 by Joelle Vega) FALL on knees and elbow (Acute) BILA KNEES LACERATION AND BLEEDING (Acute) gisel ON ckd (Acute) His diagnosis and treatment options regarding his multiple lacerations discussed with him and his . Oral or IV antibiotics could be considered to help prevent infection. This will be up to the hospitalist and/or wound women's health care nurse practitioner. Recommended trying to avoid over use of anticoagulants which may make him more prone to bleeding, wound healing complications, infection. Based on his multiple medical comorbidities, I feel his wound treatment, follow-up, should be with the wound center specialist. Patient and his agree. He can be seen back in the orthopedic office if needed for knee joint problems by Dr. Sanford and/or Dr. Herndon. If there is concern about elbow pain I could see him in the office for that. Patient and his agree. Recommend she bring in his knee braces and lower extremity brace for ambulation. In my opinion he can be weightbearing as tolerated on upper and lower extremities with assistance as needed. I will see him back on an as-needed basis only.
[2017-10-28] MEDS: Carvedilol 12.5 MG Tablet PO (21:27)
[2017-10-28] MEDS: Pantoprazole Sodium 20 MG Tablet PO (21:27)
[2017-10-28] MEDS: Metoclopramide 5 MG TABLET PO (21:27)
[2017-10-28] MEDS: Benzonatate 100 MG Capsule PO (21:27)
[2017-10-28 22:10] VITALS: BP 99/60; PULSE 61; RESP 20; TEMP 36.2; O2SAT 98
[2017-10-29] VITALS (8 sets, daily range): BP systolic 94–128; BP diastolic 48–70; PULSE 59–74; RESP 16–20; TEMP 36.1–36.9; O2SAT 94–99
[2017-10-29 00:11] LABS: Bedside Glucose 127 mg/dL (70-110)
[2017-10-29 00:18] LABS: Hematocrit 31.3 % (40-54); Hemoglobin 10.2 g/dl (13.0-16.5)
[2017-10-29 00:48] LABS: M R Staph aureus DNA By PCR Negative (Negative); Probe Check PASS; Specimen Processing Control PASS
[2017-10-29 06:15] LABS: Absolute Lymphocyte Count 1.84 X10^3/ul (0.83-4.51); Absolute Neutrophil Count 9.5 X10^3/uL (2.0-7.7); Eosinophil# 0.01 X10^3/uL; Eosinophils% 0.1 % (0-5); Hematocrit 31.4 % (40-54); Hemoglobin 10.7 g/dl (13.0-16.5); Lymphocyte # 1.84 X10^3/ul (4.0); Lymphocyte % 14.3 % (19-41); Mean Corp Hgb Conc 34.1 g/gl (32-36); Mean Corpuscular Hgb 29.4 pg (27.0-32.0); Mean Corpuscular Volume 86.3 fL (80-94); Mean Platelet Vol. 9.5 fl (6.2-12.0); Monocyte# 1.49 X10^3/uL; Monocyte% 11.6 % (0-10); Neutrophil # 9.52 X10^3/uL (2.7-7.7); Neutrophil % 73.8 % (47-70); Platelet Count 227 K/mm3 (150-450); RBC Distribution Width CV 16.9 % (11.6-14.6); RBC Distribution Width SD 53.9 fl (35.1-43.9); Red Blood Count 3.64 M/mm3 (4.6-6.2); White Blood Count 12.9 K/mm3 (4.4-11.0)
[2017-10-29 06:21] LABS: POSITIVE COUNT NO; POSITIVE DIFFERENTIAL NO; POSITIVE MORPHOLOGY NO
[2017-10-29] MEDS: Levothyroxine 75 MCG Tablet PO (06:28)
[2017-10-29 06:36] LABS: Anion Gap 5 (5-15); BUN 34 mg/dL (7-18); Calcium,Total 7.5 mg/dL (8.5-10.1); Chloride 108 mmol/L (98-107); EST Glomerular Filtration Rate 41 mL/min (>60); Est Glom Filt Rate - Afr Amer 50 mL/min (>60); Estimated Creatinine Clearance 31.27 ml/min; Glucose 94 mg/dL (74-106); Potassium 4.3 mmol/L (3.5-5.1); Sodium Level 140 mmol/L (136-145)
[2017-10-29 06:40] LABS: Bedside Glucose 140 mg/dL (70-110)
[2017-10-29] MEDS: Budesonide Respules 0.5 MG/2 ML AMPUL.NEB. INHALATION ×2 (07:07→19:16)
[2017-10-29] MEDS: Ipratropium/Albuterol Sulfate 3 ML AMPUL.NEB INHALATION ×3 (07:07→19:16)
--- NOTE | 2017-10-29 08:23 | PCM.PN.HOSP ---
Patient Problems: Active and Suspected Problems (Last Reviewed 08/06/17 @ 15:23 by Joelle Vega) FALL on knees and elbow (Acute) BILA KNEES LACERATION AND BLEEDING (Acute) gisel ON ckd (Acute) Subjective: Patient was seen and examined. He complains of a skin test on the right upper extremity getting worse. Denies any fever or chills. Denies any worsening shortness of breath. On his home 3 L of oxygen. Of note is that therapy was working with him and he was extra short of breath. Denies any fever or chills or chest pain. Objective: Physical Exam General: Alert, Oriented x3, Cooperative, not pale, not jaundiced HEENT: Atraumatic, PERRLA, EOMI, Normocephalic Neck: Supple, No JVD, Negative Carotid Bruits Lungs: Diminished, Rhonchi, Short of Breath Cardiovascular: Regular rate, No murmurs Abdomen: Bowel Sounds Present, Soft, Non Tender, Non-Distended Extremities: Capillary Refill Less than 3 Seconds, Edema Skin: No rashes, No breakdown Musculoskeletal: Arthritic Changes, Muscle Wasting, Tenderness - both knees, on swelling and pressure bandage after sutures. Neurological: Cranial nerves II-XII grossly intact Psych/Mental Status: Normal Affect, Appropriate Vitals/I&O's: Vital Signs Temp Pulse Resp BP Pulse Ox 97.0 F L 61 18 128/70 H 94 10/29/17 04:10 10/29/17 07:08 10/29/17 07:08 10/29/17 04:10 10/29/17 07:08 Oxygen Flow Rate (L/min) 3 Oxygen Delivery Method Nasal Cannula Weight: 95.753 kg Body Mass Index (BMI) 34.0 Intake and Output for Last 24 Hours 10/27/17 10/28/17 10/29/17 23:59 23:59 23:59 Intake Total 120 / 120 300 / 300 Output Total 125 / 125 Balance -5 / -5 300 / 300 Laboratory Results 10/28/17 18:50: Total Bilirubin 0.40, Direct Bilirubin 0.22, AST 21, ALT 18, Alkaline Phosphatase 126 H, Total Protein 5.1 L, Albumin 2.2 L, Globulin 2.9 10/28/17 18:50: Hgb 11.2 L, Hct 33.4 L 10/28/17 21:31: POC Glucose 127 H 10/28/17 23:00: MRSA (PCR) Negative 10/28/17 23:57: Hgb 10.2 L, Hct 31.3 L 10/29/17 05:48: WBC 12.9 H, RBC 3.64 L, Hgb 10.7 L, Hct 31.4 L, MCV 86.3, MCH 29.4, MCHC 34.1, RDW 16.9 H, RDW Differential 53.9 H, Plt Count 227, MPV 9.5, Immature Gran % (Auto) 0.200, Neut % (Auto) 73.8 H, Lymph % (Auto) 14.3 L, [place] % (Auto) 11.6 H, Eos % (Auto) 0.1, Baso % (Auto) 0.0, Absolute Neuts (auto) 9.5 H, Absolute Lymphs (auto) 1.84, Total Counted Not Reportable 10/29/17 05:48: Sodium 140, Potassium 4.3, Chloride 108 H, Carbon Dioxide 27.0, Anion Gap 5, BUN 34 H, Creatinine 1.70 H, Estim Creat Clear Calc 31.27, Est GFR (MDRD) Af Amer 50 L, Est GFR (MDRD) Non-Af 41 L, BUN/Creatinine Ratio 20.0, Glucose 94, Calcium 7.5 L 10/29/17 05:48: Hemoglobin A1c Pending 10/29/17 06:34: POC Glucose 140 H Current Medications Acetaminophen (Tylenol) 1,000 mg PO Q8 PENDING SALE TO [facility] Al Hydroxide/Mg Hydroxide (Mylanta Ii) 30 ml PO Q6H PRN PRN PRN Reason: Gastric burning Albuterol Sulfate (Ventolin Aerosols) 2.5 mg INHALATION Q2H PRN PRN PRN Reason: SOB &/OR WHEEZING Albuterol/Ipratropium (Duoneb) 3 ml INHALATION Q6HWA.RT PENDING SALE TO [facility] Last Admin: 10/29/17 07:07 Dose: 3 ml Benzonatate (Tessalon Perle) 100 mg PO QHS RADHA Last Admin: 10/28/17 21:27 Dose: 100 mg Budesonide (Pulmicort Aerosol) 0.5 mg INHALATION Q12H.RT PENDING SALE TO [facility] Last Admin: 10/29/17 07:07 Dose: 0.5 mg Carvedilol (Coreg) 12.5 mg PO BID PENDING SALE TO [facility] Last Admin: 10/28/17 21:27 Dose: 12.5 mg Clotrimazole (Lotrimin) 1 applicatio TOPICAL BID PENDING SALE TO [facility] PRN Reason: Protocol Last Admin: 10/28/17 21:27 Dose: 1 applicatio Dextrose (D50w Syringe) 0 gm IV X1 PRN; Protocol PRN Reason: Hypoglycemia Dronedarone (Multaq) 400 mg PO BID PENDING SALE TO [facility] Last Admin: 10/28/17 21:27 Dose: 400 mg Glucagon () 1 mg IM .X1 PRN PRN Reason: Hypoglycemia Heparin Sodium (Beef Lung) (Heparin 500 Unit/5 Ml (100/Ml)) 500 unit IV UD PRN PRN Reason: HEPARIN FLUSH Aztreonam 1 gm/ Dextrose 100 mls @ 150 mls/hr IV Q8 PENDING SALE TO [facility] Last Admin: 10/29/17 06:28 Dose: 150 mls/hr Insulin Aspart (Novolog Flexpen (Bkc)) 0 units SC ACHS PENDING SALE TO [facility] PRN Reason: Protocol Last Admin: 10/29/17 06:35 Dose: Not Given Levothyroxine Sodium (Synthroid) 150 mcg PO Patel@0600 PENDING SALE TO [facility] Levothyroxine Sodium (Synthroid) 75 mcg PO MoTuWeThFrSa@0600 PENDING SALE TO [facility] Last Admin: 10/29/17 06:28 Dose: 75 mcg Magnesium Hydroxide (Milk Of Magnesia) 30 ml PO DAILY PRN PRN PRN Reason: Constipation Metoclopramide HCl (Metoclopramide Hcl) 5 mg PO QHS PENDING SALE TO [facility] Last Admin: 10/28/17 21:27 Dose: 5 mg Nutritional Formula (Lactose Free) (Glucerna Shake) 120 ml PO TIDCM PENDING SALE TO [facility] Ondansetron HCl (Zofran) 4 mg IV Q8H PRN PRN PRN Reason: NAUSEA Pantoprazole Sodium (Protonix) 20 mg PO BID PENDING SALE TO [facility] Last Admin: 10/28/17 21:27 Dose: 20 mg Sodium Chloride () 10 ml IV UD PRN PRN Reason: R PORT FLUSH Last Admin: 10/29/17 06:31 Dose: 10 ml Venlafaxine HCl (Effexor Xr) 150 mg PO DAILY PENDING SALE TO [facility] Zolpidem Tartrate (Ambien (Generic)) 5 mg PO QHS PRN PRN PRN Reason: INSOMNIA Medical Necessity - Tobacco Use Smoking Status: Former smoker Tobacco Use: Cigarettes Assessment/Plan Active and Suspected Problems (Last Reviewed 08/06/17 @ 15:23 by Joelle Vega) FALL on knees and elbow (Acute) BILA KNEES LACERATION AND BLEEDING (Acute) gisel ON ckd (Acute) 82 year old male with multiple comorbidities including COPD with chronic respiratory failure, on 3 L of oxygen, chronic systolic CHF admitted after he fell down while walking on walker from bathroom on his knees and elbows. 1. Acute mechanical fall with resultant bilateral knee laceration, history of recurrent falls ,status post suturing in the ED , being followed by wound nurse, on prophylactic antibiotics Keflex. Patient has apparently tolerated ceftriaxone, cefepime in the past, although it was mentioned that he was allergic to ceftriaxone. Patient uses a walker, and a knee brace for ambulation, he has been skilled for further therapy by physical therapy and Occupational Therapy, social workers are involved in managing discharge planning, will follow up. He will need follow-up in the wound center on discharge. 2. Left radial neck fracture fracture with small joint effusion, noted on x-rays of left elbow, fracture ruled out by orthopedics team. 3. Acute kidney injury on CKD stage III, secondary to diuretic use, his home Lasix and Aldactone are on hold, will continue to monitor the creatinine, creatinine is 1.70 today, unchanged from yesterday. 4. CAD status post quadruple bypass, multiple stents, chronic systolic heart failure, last EF 20-25%, history of V. tach, status post AICD, chronic A. fib, off Lasix, Coumadin and aspirin, will continue to monitor closely, recheck chest x-ray, BMP hip 5. COPD, possible bronchiectasis with pulmonary fibrosis and obstructive sleep apnea with morbid obesity, chronic 3 L of oxygen at home, will continue on the same 6. Type 2 diabetes mellitus, HbA1c is 5.4, blood sugars are fairly controlled, not on any medication, will continue Accu-Cheks and insulin sliding scale 7. DVT PPx -Heparin SC 8. Debility secondary to #1 multiple comorbidities, high fall risk, will need a short-term rehab Code Visit Inpatient E&M: 44630 Subs Hosp L2
[2017-10-29 09:30] LABS: Hemoglobin A1c 5.4 % (4.2-6.3)
[2017-10-29] MEDS: Glucerna Shake 120 ML LIQUID PO ×2 (09:56→12:00)
[2017-10-29] MEDS: Pantoprazole Sodium 20 MG Tablet PO ×2 (09:56→22:42)
[2017-10-29] MEDS: Carvedilol 12.5 MG Tablet PO ×2 (09:56→22:43)
[2017-10-29] MEDS: Venlafaxine XR 150 MG Capsule PO (09:56)
[2017-10-29] MEDS: Acetaminophen 500 MG Tablet 1000 MG PO ×2 (10:00→22:42)
--- NOTE | 2017-10-29 10:42 | NURSING ---
wound photo: right forearm
--- NOTE | 2017-10-29 10:42 | NURSING ---
wound photo: left knee
--- NOTE | 2017-10-29 10:43 | NURSING ---
wound photo: right knee
--- NOTE | 2017-10-29 11:11 | CASEMGMT ---
Addendum entered by Sherri Lane 10/29/17 13:57: Pt informed RN that he is weaker than he thought and is thinking about SNF, wants to know who takes his insurance. SW met w/pt, gave pt a list of SNF's in [facility]. Pt would like to go to TCU if possible. SW explained it is not certain pt will qualify for SNF under Medicare, SW explained the criteria for Medicare to cover, that pt needs to be here 3 midnights. SW explained will check on beds in TCU and will speak w/physician. SW called TCU, there are no beds as of now but Erma put pt on the list. SW spoke w/physician, she is not certain when pt will be ready for discharge, will see how he is doing tomorrow. SW will follow up w/pt, he is getting a breathing treatment at present. SELAM Mcallister, SHORT ORDER COOK Original Note: SW met w/pt in regard to discharge plan. Pt lives home w/(as per chart is POA) in a one story home, 3 steps to enter. Pt uses a cane or walker to ambulate, has home O2 and C-Pap through [facility], pt also has a shower chair. Pt states takes his own shower, can dress himself, still drives. Pt's helps with the cooking, laundry, cleaning, and they also have a cleaning person to assist. Pt's PCP is Dr. Umana, pt also sees Dr. Hewitt and Dr. Davis. Pt uses [facility] for meds. Pt has a supportive son and daughter in law who live nearby, and in fact his daughter in law came over to assist pt off of the toilet yesterday. Pt explains as he walked down the chirinos to the living room his knee gave out and he fell. Pt states he has had problems w/his knee, had his knee cap replaced in the past and it has not been right since. called in while SW was speaking to , she asked to speak w/SW. She inquired when pt will be d/c home as pt has an appt w/Dr. Hewitt on Friday morning. SW advised to not change it yet, will see from physician when pt may be ready for discharge. SW then spoke w/pt further regarding discharge plan. Pt does not want SNF, does not want home health. Pt states his can help him at home, can do dressing changes if needed. Pt does have a history of [facility]. Pt alert and oriented, though forgetful as evidenced by his repeating himself throughout our conversation. At this time, pt is denying any needs for discharge though SW is available should something change and discharge needs arise. SELAM Mcallister, SHORT ORDER COOK
[2017-10-29 12:06] LABS: Bedside Glucose 191 mg/dL (70-110)
--- NOTE | 2017-10-29 12:38 | CHAPLAIN ---
Type of Pastoral Visit _x__ Initial Visit ___ Follow-up Visit ___ On-call Visit ___ General Patient Visit ___ Spiritual Assessment ___ Family Conference ___ Bereavement ___ Rapid Response ___ Code Blue ___ Other (describe below) Pastoral Care Referral From _x__ Patient ___ Family ___ Nurse ___ Physician ___ Jewelry Estimator ___ Angle Roll Operator ___ Other (describe below) Sacrament/Intervention _x__ Active listening ___ Anointing ___ Alevism ___ Bereavement ___ Communion ___ Wendy exploration ___ ___ Life review ___ Prayer ___ Reconciliation ___ Sacrament of Sick _x__ Supportive presence ___ Wedding ___ Other (describe below) Pastoral Comments patient describes his situation; pt asks for prayer; pt says he hopes to bring smiles and laughter to others and that would be a good day
[2017-10-29] MEDS: Cephalexin 500 MG Capsule PO ×2 (13:26→22:43)
--- NOTE | 2017-10-29 14:36 | RAD_ITS ---
STUDY: X-RAY CHEST REASON FOR EXAM: Male, 82 years old. Short of breath and dyspnea. TECHNIQUE: Single AP portable view of the chest. COMPARISON: 10/15/2017. FINDINGS: Moderate lung volumes. Atelectasis or infiltrate in the mid and lower lung cohn bilaterally. Effusions are not excluded especially on the right. Moderate cardiomegaly status post CABG. Pacer leads terminate in the right atrium and right ventricle. Tortuous aorta with calcified plaque. Degenerative changes throughout the visualized bones. RAD/Chest 1 View (Portable) IMPRESSION: Atelectasis or infiltrate in the lower lung cohn. Moderate cardiomegaly. Effusions not excluded. Electronically Signed: Javier Tate MD at 15:48 EDT , Service support ,
--- NOTE | 2017-10-29 14:50 | CON.PCM_ITS ---
Problem List (1) BILA KNEES LACERATION AND BLEEDING Status: Acute Reason for Consult: fall Consulted by: Dr. Solano History of Present Illness: The patient is a 82 year old M with prior knee replacement who presented after fall at home. No recent cellulitis. Had been on cipro a few weeks ago. Had some weakness, needed help getting up from toilet and then L knee gave out while walking. Hit both knees and arms, developed skin tears. Went to ED, ortho consulted, started on cefazolin. MRSA screen neg. Feeling ok, limbs bandaged. No fever. Full ROS performed and neg except as noted above. 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) Atrial fibrillation (Chronic) Cardiac pacemaker in situ (Chronic) Ventricular tachycardia (Chronic) Chronic systolic congestive heart failure (Chronic) Presence of stent in coronary artery (Chronic ~06/20/04) PTCA/DO to mid RCA 06/20/04 H/O percutaneous transluminal coronary angioplasty (Chronic) 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) CABG x4-PABLITO to LAD, ZIMMERMAN to DX, SVG to CX, SVG to RCA 1985 Atherosclerotic heart disease of [place] coronary artery without angina pectoris (Chronic) CABG x4-PABLITO to LAD, ZIMMERMAN to DX, SVG to CX, SVG to RCA 1985; PTCA/DO to mid RCA 06/20/04 Ischemic cardiomyopathy (Chronic) Benign essential hypertension (Chronic) Type II diabetes mellitus (Chronic) HLD (hyperlipidemia) (Chronic) AICD (automatic cardioverter/defibrillator) present (Chronic) implantation 04/21; gen change and pocket revision 03/17/13 Allergies/Adverse Reactions: Allergies fexofenadine Adverse Reaction (Severe, Verified 10/28/17 12:08) Cough furosemide [From Lasix] Adverse Reaction (Severe, Verified 10/28/17 12:08) Unknown prednisone Adverse Reaction (Severe, Verified 10/28/17 12:08) Unknown acetaminophen [From Percocet] Adverse Reaction (Unknown, Verified 10/28/17 12:08 ) Unknown oxycodone [From Percocet] Adverse Reaction (Unknown, Verified 10/28/17 12:08) Unknown amiodarone Adverse Reaction (Verified 10/28/17 12:08) affects his lungs/breathing azithromycin Adverse Reaction (Verified 10/28/17 12:08) Other PATIENT STATES HE LOST HIS HEARING AND HIS HAIR levofloxacin [From Levaquin] Adverse Reaction (Verified 10/28/17 12:08) Other linezolid [From Zyvox] Adverse Reaction (Verified 10/28/17 12:08) decreased platelets morphine Adverse Reaction (Verified 10/28/17 12:08) agitated tramadol Adverse Reaction (Verified 10/28/17 12:08) interferes with another medication he is on Home Medications: Ambulatory Orders Medication Instructions Recorded Albuterol Aerosols [Ventolin 2.5 mg INHALATION Q6H PRN PRN 06/02/17 Aerosols] Aspirin E.C. [Ecotrin] 81 mg PO DAILY@0800 06/02/17 Benzonatate [Tessalon Perle] 100 mg PO QHS 06/02/17 Carvedilol [Coreg] 12.5 mg PO BID 06/02/17 Clotrimazole [Lotrimin] 1 applicatio TOPICAL BID 06/02/17 Furosemide [Lasix] 20 mg PO QODAY 06/02/17 Spironolactone [Aldactone] 25 mg PO DAILY 06/02/17 budesonide-formoterol HFA 160 2 puff INHALATION BID 08/04/17 mcg-4.5 mcg/actuation aerosol inhaler levothyroxine 75 mcg tablet 75 mcg PO MOTUWETHFRSA tab 08/04/17 tiotropium bromide 18 mcg capsule 18 mcg INHALATION QDAY 08/06/17 with inhalation device warfarin 2.5 mg tablet 2.5 mg PO WE 09/02/17 Dronedarone Hydrochloride [Multaq] 400 mg PO BID 09/11/17 Warfarin [Coumadin] 1.25 mg PO SUMOTUTHFRSA 09/11/17 Ciprofloxacin HCl [Ciprofloxacin 500 mg PO BID 10/28/17 HCl] Levothyroxine [Synthroid] 150 mcg PO SHEPHERD 10/28/17 Metoclopramide [Metoclopramide HCl] 5 mg PO QHS 10/28/17 Pantoprazole Sodium [Protonix] 20 mg PO BID 10/28/17 Venlafaxine HCl [Venlafaxine HCl 150 mg PO DAILY 10/28/17 ER] - Social History SMOKING STATUS:: Former smoker Vital Signs Temp Pulse Resp BP Pulse Ox 98.3 F 66 20 H 121/69 H 94 10/29/17 14:32 10/29/17 14:32 10/29/17 14:32 10/29/17 14:32 10/29/17 14:32 Oxygen Flow Rate (L/min) 3 Oxygen Delivery Method Nasal Cannula Weight: 95.753 kg Body Mass Index (BMI) 34.0 Laboratory Tests Past 24 Hrs 10/28/17 10/28/17 10/28/17 18:50 18:50 23:00 WBC RBC Hgb 11.2 L Hct 33.4 L MCV MCH MCHC RDW RDW Differential Plt Count MPV Immature Gran % (Auto) Neut % (Auto) Lymph % (Auto) [place] % (Auto) Eos % (Auto) Baso % (Auto) Absolute Neuts (auto) Absolute Lymphs (auto) Total Counted Sodium Potassium Chloride Carbon Dioxide Anion Gap BUN Creatinine Estim Creat Clear Calc Est GFR (MDRD) Af Amer Est GFR (MDRD) Non-Af BUN/Creatinine Ratio Glucose Hemoglobin A1c Calcium Total Bilirubin 0.40 Direct Bilirubin 0.22 AST 21 ALT 18 Alkaline Phosphatase 126 H B-Natriuretic Peptide Total Protein 5.1 L Albumin 2.2 L Globulin 2.9 MRSA (PCR) Negative 10/28/17 10/29/17 10/29/17 23:57 05:48 05:48 WBC 12.9 H RBC 3.64 L Hgb 10.2 L 10.7 L Hct 31.3 L 31.4 L MCV 86.3 MCH 29.4 MCHC 34.1 RDW 16.9 H RDW Differential 53.9 H Plt Count 227 MPV 9.5 Immature Gran % (Auto) 0.200 Neut % (Auto) 73.8 H Lymph % (Auto) 14.3 L [place] % (Auto) 11.6 H Eos % (Auto) 0.1 Baso % (Auto) 0.0 Absolute Neuts (auto) 9.5 H Absolute Lymphs (auto) 1.84 Total Counted Not Reportable Sodium 140 Potassium 4.3 Chloride 108 H Carbon Dioxide 27.0 Anion Gap 5 BUN 34 H Creatinine 1.70 H Estim Creat Clear Calc 31.27 Est GFR (MDRD) Af Amer 50 L Est GFR (MDRD) Non-Af 41 L BUN/Creatinine Ratio 20.0 Glucose 94 Hemoglobin A1c Calcium 7.5 L Total Bilirubin Direct Bilirubin AST ALT Alkaline Phosphatase B-Natriuretic Peptide Total Protein Albumin Globulin MRSA (PCR) 10/29/17 10/29/17 05:48 05:48 WBC RBC Hgb Hct MCV MCH MCHC RDW RDW Differential Plt Count MPV Immature Gran % (Auto) Neut % (Auto) Lymph % (Auto) [place] % (Auto) Eos % (Auto) Baso % (Auto) Absolute Neuts (auto) Absolute Lymphs (auto) Total Counted Sodium Potassium Chloride Carbon Dioxide Anion Gap BUN Creatinine Estim Creat Clear Calc Est GFR (MDRD) Af Amer Est GFR (MDRD) Non-Af BUN/Creatinine Ratio Glucose Hemoglobin A1c 5.4 Calcium Total Bilirubin Direct Bilirubin AST ALT Alkaline Phosphatase B-Natriuretic Peptide Pending Total Protein Albumin Globulin MRSA (PCR) - Other Studies Radiology: [] reviewed Other Studies: [] Route of nutrition/ use of supplements: [] Nutritional Intake: [] IV Site: [] Monge Catheter: [] - Physical Exam General: Alert, Cooperative, No apparent distress HEENT: Atraumatic, PERRLA, EOMI Neck: Supple, No Nodes Lungs: Clear to auscultation, Normal air movement Cardiovascular: Regular rate, Regular Rhythm Abdomen: Bowel Sounds Present, Soft, Non Tender, Non-Distended Extremities: No edema Skin: No rashes - Arms and legs bandaged. IV Site: Peripheral, without redness Neurological: Cranial nerves II-XII grossly intact - Assessment/Plan Antibiotics: [] Assessment/Plan: [] Active and Suspected Problems (Last Reviewed 08/06/17 @ 15:23 by Joelle Vega) FALL on knees and elbow (Acute) BILA KNEES LACERATION AND BLEEDING (Acute) gisel ON ckd (Acute) Will change cefazolin to short course of keflex as a preventative measure. Thank you, will follow.
[2017-10-29 15:08] LABS: BNP,B-Type NATRIURETIC PEPTIDE 225.4 pg/mL (0-100)
--- NOTE | 2017-10-29 15:19 | CASEMGMT ---
SW spoke w/pt in room in regard to discharge plan. SW explained that [facility]CU may or may not have a bed when pt is ready. Also, SW spoke w/physician, and it is not clear as of now if pt will get a 3 day qualifying stay w/Medicare, will need to see what physician thinks tomorrow. SW asked pt if they would private pay if SNF is needed and is not here long enough to qualify, would he private pay. Pt is not certain, it seems that pt may not fully comprehend what SW is explaining to him. SW asked about other SNF choices, pt is not sure what other choices would be, but is okay w/SW calling his to discuss. SW called pt's in regard to discharge plan. SW explained that pt did not move well w/PT and is agreeable to longterm. was surprised by this. SW explained that pt was not able to walk, and got very short of breath. states understanding. SW did explain the Medicare regulation for SNF, and that we will not know until tomorrow if pt will qualify, states they cannot afford to pay privately. We also discussed if pt does have a qualifying stay, where she would like pt to go. She states she would like pt to stay here. SW explained that [facility]CU may not have a bed, asked for a second choice. Initially, did not give a second choice, however upon further discussion she may be agreeable to [facility]. SW explained will call [facility] and check on bed availability, and will follow up w/her and w/pt tomorrow. SW called [facility], message left for Naima inquiring about bed availability. SW will continue to follow. SELAM Mcallister, DIETARY SERVICES DIRECTOR
[2017-10-29 16:46] LABS: Bedside Glucose 149 mg/dL (70-110)
[2017-10-29] MEDS: Benzonatate 100 MG Capsule PO (22:42)
[2017-10-29] MEDS: Metoclopramide 5 MG TABLET PO (22:43)
[2017-10-29 22:51] LABS: Bedside Glucose 115 mg/dL (70-110)
--- NOTE | 2017-10-29 23:01 | EKG12_ITS ---
Test Reason : CHEST PAIN Blood Pressure : / mmHG Vent. Rate : 066 BPM Atrial Rate : 065 BPM P-R Int : 196 ms QRS Dur : 106 ms QT Int : 402 ms P-R-T Axes : 053 -14 141 degrees QTc Int : 421 ms Normal sinus rhythm with Premature atrial complexes Inferior infarct (cited on or before 02-JUN-2017) Abnormal ECG When compared with ECG of 11-SEP-2017 12:06, Current undetermined rhythm precludes rhythm comparison, needs review Confirmed by WOLF LEONARD, DEBRA ([id number]), loan expeditor PUNEET VELASCO ([id number]) on 11/27/2017 5:18:19 PM Referred By: Anna Umana Confirmed By:DEBRA BLOOM MD
[2017-10-29] MEDS: Lidocaine 5% Patch 1 PATCH TOPICAL (23:16)
[2017-10-30] VITALS (7 sets, daily range): BP systolic 96–116; BP diastolic 55–78; PULSE 61–85; RESP 16–18; TEMP 36.4–36.9; O2SAT 95–100
[2017-10-30 06:10] LABS: International Normalized Ratio 1.9; Prothrombin Time (Protime)PT. 21.9 SECONDS (11.7-14.9)
[2017-10-30] MEDS: Acetaminophen 500 MG Tablet 1000 MG PO ×3 (06:12→21:07)
[2017-10-30] MEDS: Levothyroxine 75 MCG Tablet PO (06:12)
[2017-10-30] MEDS: Ipratropium/Albuterol Sulfate 3 ML AMPUL.NEB INHALATION ×3 (06:44→18:47)
[2017-10-30] MEDS: Budesonide Respules 0.5 MG/2 ML AMPUL.NEB. INHALATION ×2 (06:44→18:47)
[2017-10-30 06:55] LABS: Bedside Glucose 82 mg/dL (70-110)
[2017-10-30] MEDS: Glucerna Shake 120 ML LIQUID PO ×3 (08:03→17:28)
[2017-10-30] MEDS: Pantoprazole Sodium 20 MG Tablet PO ×2 (08:04→21:08)
[2017-10-30] MEDS: Carvedilol 12.5 MG Tablet PO ×2 (08:04→21:08)
[2017-10-30] MEDS: Venlafaxine XR 150 MG Capsule PO (08:04)
[2017-10-30] MEDS: Lidocaine 5% Patch 1 PATCH TOPICAL (08:05)
[2017-10-30] MEDS: Cephalexin 500 MG Capsule PO ×2 (08:05→21:08)
[2017-10-30 08:44] LABS: Anion Gap 7 (5-15); BUN 36 mg/dL (7-18); BUN/Creat Ratio 21.1 RATIO (10-20); Calcium,Total 7.2 mg/dL (8.5-10.1); Chloride 106 mmol/L (98-107); Creatinine, Serum 1.71 mg/dL (0.70-1.30); EST Glomerular Filtration Rate 41 mL/min (>60); Est Glom Filt Rate - Afr Amer 50 mL/min (>60); Estimated Creatinine Clearance 31.09 ml/min; Glucose 76 mg/dL (74-106); Potassium 4.5 mmol/L (3.5-5.1); Sodium Level 137 mmol/L (136-145)
--- NOTE | 2017-10-30 09:10 | CASEMGMT ---
Addendum entered by Sherri Lane 10/30/17 09:39: SW spoke w/Jazlyn, they will have a bed in TCU tomorrow. SW called and canceled referral to [facility]. SW spoke w/pt, let him know that TCU will have a bed for pt tomorrow, pt is agreeable, also agreeable to have SW call pt's . SW called , let her know pt is not ready for discharge today, will likely be ready tomorrow and TCU will have a bed for pt tomorrow. also in agreement with this plan and is thankful that TCU will have a bed. SW will continue to follow for discharge to TCU tomorrow. SELAM Mcallister, SOUND CUTTER Original Note: SW spoke w/physician, pt is not ready for discharge today. SW received call back from [facility], they may have a bed, and can review referral. SW faxed referral. SW also spoke w/Erma in TCU, she will have Jazlyn call this SW in regard to be situation in TCU, as TCU is still pt and 's first choice. SW will continue to follow. SELAM Mcallister, SOUND CUTTER
[2017-10-30 11:25] LABS: Bedside Glucose 139 mg/dL (70-110)
--- NOTE | 2017-10-30 12:04 | PCM.PN.ID ---
Patient Problems: Active and Suspected Problems (Last Reviewed 08/06/17 @ 15:23 by Joelle Vega) FALL on knees and elbow (Acute) BILA KNEES LACERATION AND BLEEDING (Acute) gisel ON ckd (Acute) Subjective: Feeling fine, no fever, knees slightly sore. No n/v/d. - Physical Exam General: Alert, Cooperative Lungs: Clear to auscultation, Normal air movement Cardiovascular: Regular rate, Regular Rhythm Abdomen: Soft, Non Tender, Non-Distended Skin: No rashes Vital Signs Temp Pulse Resp BP Pulse Ox 98.1 F 61 18 103/58 L 98 10/30/17 08:02 10/30/17 08:02 10/30/17 08:02 10/30/17 08:02 10/30/17 08:02 Oxygen Flow Rate (L/min) 3 Oxygen Delivery Method Nasal Cannula Weight: 97.7 kg Body Mass Index (BMI) 34.0 Intake and Output for Last 24 Hours 10/28/17 10/29/17 10/30/17 23:59 23:59 23:59 Intake Total 120 / 120 1098 / 1098 1000 / 1000 Output Total 125 / 125 450 / 450 300 / 300 Balance -5 / -5 648 / 648 700 / 700 Laboratory Tests Past 24 Hrs 10/29/17 10/29/17 10/30/17 05:48 23:22 02:07 PT INR Sodium Potassium Chloride Carbon Dioxide Anion Gap BUN Creatinine Estim Creat Clear Calc Est GFR (MDRD) Af Amer Est GFR (MDRD) Non-Af BUN/Creatinine Ratio Glucose Calcium Troponin I < 0.015 < 0.015 B-Natriuretic Peptide 225.4 H 10/30/17 10/30/17 10/30/17 05:10 05:10 05:10 PT 21.9 H INR 1.9 Sodium 137 Potassium 4.5 Chloride 106 Carbon Dioxide 24.0 Anion Gap 7 BUN 36 H Creatinine 1.71 H Estim Creat Clear Calc 31.09 Est GFR (MDRD) Af Amer 50 L Est GFR (MDRD) Non-Af 41 L BUN/Creatinine Ratio 21.1 H Glucose 76 Calcium 7.2 L Troponin I < 0.015 B-Natriuretic Peptide POC Glucose 10/30/17 10/30/17 10/29/17 11:16 06:11 22:41 POC Glucose 139 H 82 115 H 10/29/17 10/29/17 16:39 11:52 POC Glucose 149 H 191 H Medical Necessity - Tobacco Use Smoking Status: Former smoker Tobacco Use: Cigarettes Route of nutrition/ use of supplements: [] Nutritional Intake: [] IV Site: [] Monge Catheter: [] - Assessment/Plan Antibiotics: [] Assessment/Plan: [] Active and Suspected Problems (Last Reviewed 08/06/17 @ 15:23 by Joelle Vega) FALL on knees and elbow (Acute) BILA KNEES LACERATION AND BLEEDING (Acute) gisel ON ckd (Acute) On short course of keflex as a preventative measure. Plan on stopping tomorrow 10/31. Will follow as needed. Please call with any ?s.
--- NOTE | 2017-10-30 13:38 | PCM.PN.HOSP ---
Patient Problems: Active and Suspected Problems (Last Reviewed 08/06/17 @ 15:23 by Joelle Vega) FALL on knees and elbow (Acute) BILA KNEES LACERATION AND BLEEDING (Acute) gisel ON ckd (Acute) Subjective: Patient was seen and examined. He denies any chest pain or shortness of breath. His breathing is improved, on 3 L of oxygen. Patient admits to feeling unsteady when ambulating. He says he nearly passed out prior to admission. Discussed with care management team, patient will possibly be discharged tomorrow to TCU Objective: Physical Exam General: Alert, Oriented x3, Cooperative, not pale, not jaundiced HEENT: Atraumatic, PERRLA, EOMI, Normocephalic Neck: Supple, No JVD, Negative Carotid Bruits Lungs: Diminished, Rhonchi, Short of Breath Cardiovascular: Regular rate, No murmurs Abdomen: Bowel Sounds Present, Soft, Non Tender, Non-Distended Extremities: Capillary Refill Less than 3 Seconds, Edema Skin: bruises on upper extremities Musculoskeletal: Arthritic Changes, Muscle Wasting, Tenderness - both knees and upper extremities, on swelling and pressure bandage after sutures. Neurological: Cranial nerves II-XII grossly intact Psych/Mental Status: Normal Affect, Appropriate Vitals/I&O's: Vital Signs Temp Pulse Resp BP Pulse Ox 98.1 F 68 16 103/58 L 98 10/30/17 08:02 10/30/17 12:59 10/30/17 12:59 10/30/17 08:02 10/30/17 08:02 Oxygen Flow Rate (L/min) 3 Oxygen Delivery Method Nasal Cannula Weight: 97.7 kg Body Mass Index (BMI) 34.0 Intake and Output for Last 24 Hours 10/28/17 10/29/17 10/30/17 23:59 23:59 23:59 Intake Total 120 / 120 1098 / 1098 1000 / 1000 Output Total 125 / 125 450 / 450 300 / 300 Balance -5 / -5 648 / 648 700 / 700 Laboratory Results 10/29/17 05:48: B-Natriuretic Peptide 225.4 H 10/29/17 16:39: POC Glucose 149 H 10/29/17 22:41: POC Glucose 115 H 10/29/17 23:22: Troponin I < 0.015 10/30/17 02:07: Troponin I < 0.015 10/30/17 05:10: PT 21.9 H, INR 1.9 10/30/17 05:10: Troponin I < 0.015 10/30/17 05:10: Sodium 137, Potassium 4.5, Chloride 106, Carbon Dioxide 24.0, Anion Gap 7, BUN 36 H, Creatinine 1.71 H, Estim Creat Clear Calc 31.09, Est GFR (MDRD) Af Amer 50 L, Est GFR (MDRD) Non-Af 41 L, BUN/Creatinine Ratio 21.1 H, Glucose 76, Calcium 7.2 L 10/30/17 06:11: POC Glucose 82 10/30/17 11:16: POC Glucose 139 H Current Medications Acetaminophen (Tylenol) 1,000 mg PO Q8 [facility] Last Admin: 10/30/17 06:12 Dose: 1,000 mg Al Hydroxide/Mg Hydroxide (Mylanta Ii) 30 ml PO Q6H PRN PRN PRN Reason: Gastric burning Albuterol Sulfate (Ventolin Aerosols) 2.5 mg INHALATION Q2H PRN PRN PRN Reason: SOB &/OR WHEEZING Albuterol/Ipratropium (Duoneb) 3 ml INHALATION Q6HWA.RT [facility] Last Admin: 10/30/17 12:59 Dose: 3 ml Benzonatate (Tessalon Perle) 100 mg PO QHS [facility] Last Admin: 10/29/17 22:42 Dose: 100 mg Budesonide (Pulmicort Aerosol) 0.5 mg INHALATION Q12H.RT [facility] Last Admin: 10/30/17 06:44 Dose: 0.5 mg Carvedilol (Coreg) 12.5 mg PO BID [facility] Last Admin: 10/30/17 08:04 Dose: 12.5 mg Cephalexin (Keflex) 500 mg PO Q12 [facility] Last Admin: 10/30/17 08:05 Dose: 500 mg Clotrimazole (Lotrimin) 1 applicatio TOPICAL BID [facility] PRN Reason: Protocol Last Admin: 10/30/17 08:07 Dose: 1 applicatio Dextrose (D50w Syringe) 0 gm IV X1 PRN; Protocol PRN Reason: Hypoglycemia Dronedarone (Multaq) 400 mg PO BID [facility] Last Admin: 10/30/17 08:05 Dose: 400 mg Glucagon () 1 mg IM .X1 PRN PRN Reason: Hypoglycemia Heparin Sodium (Beef Lung) (Heparin 500 Unit/5 Ml (100/Ml)) 500 unit IV UD PRN PRN Reason: HEPARIN FLUSH Insulin Aspart (Novolog Flexpen (Bkc)) 0 units SC ACHS RADHA PRN Reason: Protocol Last Admin: 10/30/17 11:20 Dose: Not Given Levothyroxine Sodium (Synthroid) 150 mcg PO Patel@0600 [facility] Levothyroxine Sodium (Synthroid) 75 mcg PO MoTuWeThFrSa@0600 [facility] Last Admin: 10/30/17 06:12 Dose: 75 mcg Lidocaine (Lidoderm Patch) 1 patch TOPICAL DAILY [facility] PRN Reason: Protocol Last Admin: 10/30/17 08:05 Dose: 1 patch Magnesium Hydroxide (Milk Of Magnesia) 30 ml PO DAILY PRN PRN PRN Reason: Constipation Metoclopramide HCl (Metoclopramide Hcl) 5 mg PO QHS [facility] Last Admin: 10/29/17 22:43 Dose: 5 mg Nutritional Formula (Lactose Free) (Glucerna Shake) 120 ml PO TIDCM [facility] Last Admin: 10/30/17 11:21 Dose: 120 ml Ondansetron HCl (Zofran) 4 mg IV Q8H PRN PRN PRN Reason: NAUSEA Pantoprazole Sodium (Protonix) 20 mg PO BID [facility] Last Admin: 10/30/17 08:04 Dose: 20 mg Sodium Chloride () 10 ml IV UD PRN PRN Reason: R PORT FLUSH Last Admin: 10/30/17 02:15 Dose: 10 ml Venlafaxine HCl (Effexor Xr) 150 mg PO DAILY [facility] Last Admin: 10/30/17 08:04 Dose: 150 mg Zolpidem Tartrate (Ambien (Generic)) 5 mg PO QHS PRN PRN PRN Reason: INSOMNIA Medical Necessity - Tobacco Use Smoking Status: Former smoker Tobacco Use: Cigarettes Assessment/Plan Active and Suspected Problems (Last Reviewed 08/06/17 @ 15:23 by Joelle Vega) FALL on knees and elbow (Acute) BILA KNEES LACERATION AND BLEEDING (Acute) gisel ON ckd (Acute) 82 year old male with multiple comorbidities including COPD with chronic respiratory failure, on 3 L of oxygen, history chronic systolic CHF admitted after he fell down while walking with his walker from bathroom with lacerations to his knees and elbows. 1. Acute mechanical fall with resultant bilateral knee laceration, history of recurrent falls , s/p bilateral knee laceration with suturing in the ED, being followed by wound nurse, on prophylactic antibiotics Keflex. Seen by orthopedic team. He will need follow-up in the wound center on discharge. 2. Left radial neck fracture with small joint effusion, noted on x-rays of left elbow, fracture ruled out by orthopedics team. 3. Acute kidney injury on CKD stage III, CR has stayed the same for 3 days, off diuretics, aldactone. 4. CAD status post quadruple bypass, multiple stents, chronic systolic heart failure, last EF 20-25%, history of V. tach, status post AICD, chronic A. fib, off Lasix, Coumadin and aspirin, will continue to monitor closely, not in acute exacerbation, discussed with edis Griffith to withhold coumadin, pt can be on aspirin 325mg daily. 5. COPD, possible bronchiectasis with pulmonary fibrosis and obstructive sleep apnea with morbid obesity, chronic 3 L of oxygen at home, will continue on the same 6. Type 2 diabetes mellitus, HbA1c is 5.4, blood sugars are fairly controlled, not on any medication, will continue Accu-Cheks and insulin sliding scale 7. DVT PPx -Heparin SC 8. Debility secondary to #1 multiple comorbidities, high fall risk, discharge to TCU when bed is available. Code Visit Inpatient E&M: 35531 Subs Hosp L2
--- NOTE | 2017-10-30 13:48 | PN_ITS ---
Patient Problems: Active and Suspected Problems (Last Reviewed 08/06/17 @ 15:23 by Joelle Vega) FALL on knees and elbow (Acute) BILA KNEES LACERATION AND BLEEDING (Acute) gisel ON ckd (Acute) Subjective: Patient was seen and examined. He denies any chest pain or shortness of breath. His breathing is improved, on 3 L of oxygen. Patient admits to feeling unsteady when ambulating. He says he nearly passed out prior to admission. Discussed with care management team, patient will possibly be discharged tomorrow to TCU Objective: Physical Exam General: Alert, Oriented x3, Cooperative, not pale, not jaundiced HEENT: Atraumatic, PERRLA, EOMI, Normocephalic Neck: Supple, No JVD, Negative Carotid Bruits Lungs: Diminished, Rhonchi, Short of Breath Cardiovascular: Regular rate, No murmurs Abdomen: Bowel Sounds Present, Soft, Non Tender, Non-Distended Extremities: Capillary Refill Less than 3 Seconds, Edema Skin: bruises on upper extremities Musculoskeletal: Arthritic Changes, Muscle Wasting, Tenderness - both knees and upper extremities, on swelling and pressure bandage after sutures. Neurological: Cranial nerves II-XII grossly intact Psych/Mental Status: Normal Affect, Appropriate Vitals/I&O's: Vital Signs Temp Pulse Resp BP Pulse Ox 98.1 F 68 16 103/58 L 98 10/30/17 08:02 10/30/17 12:59 10/30/17 12:59 10/30/17 08:02 10/30/17 08:02 Oxygen Flow Rate (L/min) 3 Oxygen Delivery Method Nasal Cannula Weight: 97.7 kg Body Mass Index (BMI) 34.0 Intake and Output for Last 24 Hours 10/28/17 10/29/17 10/30/17 23:59 23:59 23:59 Intake Total 120 / 120 1098 / 1098 1000 / 1000 Output Total 125 / 125 450 / 450 300 / 300 Balance -5 / -5 648 / 648 700 / 700 Laboratory Results 10/29/17 05:48: B-Natriuretic Peptide 225.4 H 10/29/17 16:39: POC Glucose 149 H 10/29/17 22:41: POC Glucose 115 H 10/29/17 23:22: Troponin I < 0.015 10/30/17 02:07: Troponin I < 0.015 10/30/17 05:10: PT 21.9 H, INR 1.9 10/30/17 05:10: Troponin I < 0.015 10/30/17 05:10: Sodium 137, Potassium 4.5, Chloride 106, Carbon Dioxide 24.0, Anion Gap 7, BUN 36 H, Creatinine 1.71 H, Estim Creat Clear Calc 31.09, Est GFR (MDRD) Af Amer 50 L, Est GFR (MDRD) Non-Af 41 L, BUN/Creatinine Ratio 21.1 H, Glucose 76, Calcium 7.2 L 10/30/17 06:11: POC Glucose 82 10/30/17 11:16: POC Glucose 139 H Current Medications Acetaminophen (Tylenol) 1,000 mg PO Q8 [facility] Last Admin: 10/30/17 06:12 Dose: 1,000 mg Al Hydroxide/Mg Hydroxide (Mylanta Ii) 30 ml PO Q6H PRN PRN PRN Reason: Gastric burning Albuterol Sulfate (Ventolin Aerosols) 2.5 mg INHALATION Q2H PRN PRN PRN Reason: SOB &/OR WHEEZING Albuterol/Ipratropium (Duoneb) 3 ml INHALATION Q6HWA.RT [facility] Last Admin: 10/30/17 12:59 Dose: 3 ml Benzonatate (Tessalon Perle) 100 mg PO QHS [facility] Last Admin: 10/29/17 22:42 Dose: 100 mg Budesonide (Pulmicort Aerosol) 0.5 mg INHALATION Q12H.RT [facility] Last Admin: 10/30/17 06:44 Dose: 0.5 mg Carvedilol (Coreg) 12.5 mg PO BID [facility] Last Admin: 10/30/17 08:04 Dose: 12.5 mg Cephalexin (Keflex) 500 mg PO Q12 [facility] Last Admin: 10/30/17 08:05 Dose: 500 mg Clotrimazole (Lotrimin) 1 applicatio TOPICAL BID [facility] PRN Reason: Protocol Last Admin: 10/30/17 08:07 Dose: 1 applicatio Dextrose (D50w Syringe) 0 gm IV X1 PRN; Protocol PRN Reason: Hypoglycemia Dronedarone (Multaq) 400 mg PO BID [facility] Last Admin: 10/30/17 08:05 Dose: 400 mg Glucagon () 1 mg IM .X1 PRN PRN Reason: Hypoglycemia Heparin Sodium (Beef Lung) (Heparin 500 Unit/5 Ml (100/Ml)) 500 unit IV UD PRN PRN Reason: HEPARIN FLUSH Insulin Aspart (Novolog Flexpen (Bkc)) 0 units SC ACHS RADHA PRN Reason: Protocol Last Admin: 10/30/17 11:20 Dose: Not Given Levothyroxine Sodium (Synthroid) 150 mcg PO Patel@0600 [facility] Levothyroxine Sodium (Synthroid) 75 mcg PO MoTuWeThFrSa@0600 [facility] Last Admin: 10/30/17 06:12 Dose: 75 mcg Lidocaine (Lidoderm Patch) 1 patch TOPICAL DAILY [facility] PRN Reason: Protocol Last Admin: 10/30/17 08:05 Dose: 1 patch Magnesium Hydroxide (Milk Of Magnesia) 30 ml PO DAILY PRN PRN PRN Reason: Constipation Metoclopramide HCl (Metoclopramide Hcl) 5 mg PO QHS [facility] Last Admin: 10/29/17 22:43 Dose: 5 mg Nutritional Formula (Lactose Free) (Glucerna Shake) 120 ml PO TIDCM [facility] Last Admin: 10/30/17 11:21 Dose: 120 ml Ondansetron HCl (Zofran) 4 mg IV Q8H PRN PRN PRN Reason: NAUSEA Pantoprazole Sodium (Protonix) 20 mg PO BID [facility] Last Admin: 10/30/17 08:04 Dose: 20 mg Sodium Chloride () 10 ml IV UD PRN PRN Reason: R PORT FLUSH Last Admin: 10/30/17 02:15 Dose: 10 ml Venlafaxine HCl (Effexor Xr) 150 mg PO DAILY [facility] Last Admin: 10/30/17 08:04 Dose: 150 mg Zolpidem Tartrate (Ambien (Generic)) 5 mg PO QHS PRN PRN PRN Reason: INSOMNIA Medical Necessity - Tobacco Use Smoking Status: Former smoker Tobacco Use: Cigarettes Assessment/Plan Active and Suspected Problems (Last Reviewed 08/06/17 @ 15:23 by Joelle Vega) FALL on knees and elbow (Acute) BILA KNEES LACERATION AND BLEEDING (Acute) gisel ON ckd (Acute) 82 year old male with multiple comorbidities including COPD with chronic respiratory failure, on 3 L of oxygen, history chronic systolic CHF admitted after he fell down while walking with his walker from bathroom with lacerations to his knees and elbows. 1. Acute mechanical fall with resultant bilateral knee laceration, history of recurrent falls , s/p bilateral knee laceration with suturing in the ED, being followed by wound nurse, on prophylactic antibiotics Keflex. Seen by orthopedic team. He will need follow-up in the wound center on discharge. 2. Left radial neck fracture with small joint effusion, noted on x-rays of left elbow, fracture ruled out by orthopedics team. 3. Acute kidney injury on CKD stage III, CR has stayed the same for 3 days, off diuretics, aldactone. 4. CAD status post quadruple bypass, multiple stents, chronic systolic heart failure, last EF 20-25%, history of V. tach, status post AICD, chronic A. fib, off Lasix, Coumadin and aspirin, will continue to monitor closely, not in acute exacerbation, discussed with edis Griffith to withhold coumadin, pt can be on aspirin 325mg daily. 5. COPD, possible bronchiectasis with pulmonary fibrosis and obstructive sleep apnea with morbid obesity, chronic 3 L of oxygen at home, will continue on the same 6. Type 2 diabetes mellitus, HbA1c is 5.4, blood sugars are fairly controlled, not on any medication, will continue Accu-Cheks and insulin sliding scale 7. DVT PPx -Heparin SC 8. Debility secondary to #1 multiple comorbidities, high fall risk, discharge to TCU when bed is available. Code Visit Inpatient E&M: 44866 Subs Hosp L2
[2017-10-30 17:31] LABS: Bedside Glucose 112 mg/dL (70-110)
[2017-10-30] MEDS: Benzonatate 100 MG Capsule PO (21:07)
[2017-10-30] MEDS: Metoclopramide 5 MG TABLET PO (21:08)
[2017-10-30 21:25] LABS: Bedside Glucose 93 mg/dL (70-110)
[2017-10-31 04:02] VITALS: BP 122/76; PULSE 60; RESP 16; TEMP 36.4; O2SAT 99
[2017-10-31 05:47] LABS: International Normalized Ratio 1.4; Prothrombin Time (Protime)PT. 17.6 SECONDS (11.7-14.9)
[2017-10-31] MEDS: Levothyroxine 75 MCG Tablet PO (06:26)
[2017-10-31] MEDS: Acetaminophen 500 MG Tablet 1000 MG PO (06:27)
[2017-10-31] MEDS: Budesonide Respules 0.5 MG/2 ML AMPUL.NEB. INHALATION (06:37)
[2017-10-31] MEDS: Ipratropium/Albuterol Sulfate 3 ML AMPUL.NEB INHALATION (06:37)
[2017-10-31 06:40] LABS: Bedside Glucose 80 mg/dL (70-110)
[2017-10-31 08:14] LABS: Absolute Lymphocyte Count 2.24 X10^3/ul (0.83-4.51); Absolute Neutrophil Count 7.1 X10^3/uL (2.0-7.7); Basophil# 0.01 X10^3/uL; Basophil% 0.1 % (0-1); Eosinophil# 0.33 X10^3/uL; Hematocrit 29.9 % (40-54); Hemoglobin 9.7 g/dl (13.0-16.5); Lymphocyte # 2.24 X10^3/ul (4.0); Lymphocyte % 20.6 % (19-41); Mean Corp Hgb Conc 32.4 g/gl (32-36); Mean Corpuscular Hgb 28.2 pg (27.0-32.0); Mean Corpuscular Volume 86.9 fL (80-94); Mean Platelet Vol. 10.5 fl (6.2-12.0); Monocyte# 1.03 X10^3/uL; Monocyte% 9.5 % (0-10); Neutrophil # 7.13 X10^3/uL (2.7-7.7); Neutrophil % 65.8 % (47-70); Platelet Count 193 K/mm3 (150-450); RBC Distribution Width CV 16.8 % (11.6-14.6); RBC Distribution Width SD 52.3 fl (35.1-43.9); Red Blood Count 3.44 M/mm3 (4.6-6.2); White Blood Count 10.9 K/mm3 (4.4-11.0)
[2017-10-31 08:19] LABS: POSITIVE COUNT NO; POSITIVE DIFFERENTIAL NO; POSITIVE MORPHOLOGY NO
--- NOTE | 2017-10-31 08:19 | TREXTCAR_ITS ---
- Diet 10/28/17 17:10 Diet: Cardiac, calorie controlled Diet Food consistency:: Regular Liquid Consistency:: Regular/Thin Is pt able to select menu?: Yes - Routine Orders/Code Status O2 Liters per Minute: 3L O2 Frequency: Continuous Keep PO Greater than or Equal to (%): 94 - Encourage use of incentive spirometer and acapella Routine Lab Work: CBC - in 3 days, BMP - in 3 days Code Status: Full Code - Wound(s) Right forearm Wound Type: Skin Tear Dressing Change: Adaptic Left arm Wound Type: Skin Tear Dressing Change: Adaptic Right knee Wound Type: Skin Tear Dressing Change: Adaptic Left knee Wound Type: Skin Tear Dressing Change: Adaptci - Therapies Extremity Affected:: Bilateral Lower Physical Therapy: Eval and Treat Occupational Therapy: Eval and Treat - Allergies/Procedures Done in Hospital Allergies/Adverse Reactions: Allergies fexofenadine Adverse Reaction (Severe, Verified 10/28/17 12:08) Cough furosemide [From Lasix] Adverse Reaction (Severe, Verified 10/28/17 12:08) Unknown prednisone Adverse Reaction (Severe, Verified 10/28/17 12:08) Unknown acetaminophen [From Percocet] Adverse Reaction (Unknown, Verified 10/28/17 12:08 ) Unknown oxycodone [From Percocet] Adverse Reaction (Unknown, Verified 10/28/17 12:08) Unknown amiodarone Adverse Reaction (Verified 10/28/17 12:08) affects his lungs/breathing azithromycin Adverse Reaction (Verified 10/28/17 12:08) Other PATIENT STATES HE LOST HIS HEARING AND HIS HAIR levofloxacin [From Levaquin] Adverse Reaction (Verified 10/28/17 12:08) Other linezolid [From Zyvox] Adverse Reaction (Verified 10/28/17 12:08) decreased platelets morphine Adverse Reaction (Verified 10/28/17 12:08) agitated tramadol Adverse Reaction (Verified 10/28/17 12:08) interferes with another medication he is on Procedures: - - suturing of lacerations in ED - Type of Care/Length of Stay Estimated LOS: Convalescent Care Less Than 30 days Type of Care Needed: Skilled Rehab Potential: Good Prognosis: Good - Additional Orders/Day of Discharge Day of Discharge: 10/31/17 - Dietary and Speech Recommendations Dietitian Recommendations/Changes: Pt may benefit from CHO controlled diet if blood glucose becomes of concern. - Follow Up Care Primary Care Physician: Anna Umana DO [Primary Care Provider] - Please follow up with your Primary Care Physician in: within 2 weeks Please Follow Up With: Sanya Hewitt MD When: within 2 weeks
[2017-10-31 08:23] LABS: Anion Gap 3 (5-15); BUN 31 mg/dL (7-18); BUN/Creat Ratio 22.6 RATIO (10-20); Calcium,Total 7.3 mg/dL (8.5-10.1); Chloride 106 mmol/L (98-107); Creatinine, Serum 1.37 mg/dL (0.70-1.30); EST Glomerular Filtration Rate 53 mL/min (>60); Est Glom Filt Rate - Afr Amer 64 mL/min (>60); Estimated Creatinine Clearance 38.81 ml/min; Glucose 74 mg/dL (74-106); Potassium 4.1 mmol/L (3.5-5.1); Sodium Level 137 mmol/L (136-145)
[2017-10-31] MEDS: Glucerna Shake 120 ML LIQUID PO (08:29)
[2017-10-31] MEDS: Carvedilol 12.5 MG Tablet PO (08:30)
[2017-10-31] MEDS: Pantoprazole Sodium 20 MG Tablet PO (08:30)
[2017-10-31] MEDS: Cephalexin 500 MG Capsule PO (08:30)
[2017-10-31] MEDS: Venlafaxine XR 150 MG Capsule PO (08:30)
[2017-10-31] MEDS: Aspirin 325 MG Tablet PO (08:32)
[2017-10-31 09:58] VITALS: BP 95/49; PULSE 60; RESP 18; TEMP 36.6; O2SAT 95
[2017-10-31 10:10] VITALS: PULSE 68; RESP 18; O2SAT 99
[2017-10-31] MEDS: Lidocaine 5% Patch 1 PATCH TOPICAL (11:16)
[2017-10-31] MEDS: Furosemide 20 MG Tablet PO (11:17)
--- NOTE | 2017-10-31 11:21 | DS.PCM_ITS ---
Discharge Date and Diagnosis Date of Admission: 10/28/17 Date of Discharge: 10/31/17 - Primary Discharge Diagnosis Active and Suspected Problems (Last Reviewed 08/06/17 @ 15:23 by Joelle Vega) FALL on knees and elbow (Acute) BILA KNEES LACERATION AND BLEEDING (Acute) gisel ON ckd (Acute) - Secondary Discharge Diagnosis Chronic Problems (Last Reviewed 08/06/17 @ 15:23 by Joelle Vega) Obesity (BMI 30.0-34.9) (Chronic) ALIVIA (obstructive sleep apnea) (Chronic) History of DVT (deep vein thrombosis) (Chronic) COPD (chronic obstructive pulmonary disease) (Chronic) CKD (chronic kidney disease) stage 3, GFR 30-59 ml/min (Chronic) 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 admin (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) use of anticoagulants (Chronic) Atrial fibrillation (Chronic) Cardiac pacemaker in situ (Chronic) Ventricular tachycardia (Chronic) Chronic systolic congestive heart failure (Chronic) Presence of stent in coronary artery (Chronic ~06/20/04) PTCA/DO to mid RCA 06/20/04 H/O percutaneous transluminal coronary angioplasty (Chronic) 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) CABG x4-PABLITO to LAD, ZIMMERMAN to DX, SVG to CX, SVG to RCA 1985 Atherosclerotic heart disease of pa[place] coronary artery without angina pectoris (Chronic) CABG x4-PABLITO to LAD, ZIMMERMAN to DX, SVG to CX, SVG to RCA 1985; PTCA/DO to mid RCA 06/20/04 Ischemic cardiomyopathy (Chronic) Benign essential hypertension (Chronic) Type II diabetes mellitus (Chronic) HLD (hyperlipidemia) (Chronic) AICD (automatic cardioverter/defibrillator) present (Chronic) implantation 04/21; gen change and pocket revision 03/17/13 Hospital Course and Treatment Imaging Results: Clinical Impression(s) from Imaging Studies Brain CT 10/28/17 13:21 IMPRESSION: Chronic involutional changes of the brain. Electronically Signed: Zi Rahman MD at 14:20 EDT Tel [phone], Service support , Elbow X-Ray 10/28/17 13:22 IMPRESSION: There is a nondisplaced radial neck fracture. Small joint effusion. Electronically Signed: Zi Rahman MD at 14:28 EDT Tel [phone], Service support , Elbow X-Ray 10/28/17 13:22 IMPRESSION: No acute abnormality is seen. Electronically Signed: Zi Rahman MD at 15:02 EDT Tel [phone], Service support , Knee X-Ray 10/28/17 13:22 IMPRESSION: Constrained left knee arthroplasty. There is soft tissue swelling. No visualized evidence of an acute fracture. Electronically Signed: Mariela Hicks MD at 15:24 EDT Tel , Service support , Knee X-Ray 10/28/17 13:22 IMPRESSION: Soft tissue swelling. No fracture is seen. Electronically Signed: Zi Rahman MD at 14:30 EDT Tel [phone], Service support , Chest X-Ray 10/29/17 14:36 IMPRESSION: Atelectasis or infiltrate in the lower lung cohn. Moderate cardiomegaly. Effusions not excluded. 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 1. Acute mechanical fall with resultant bilateral knee laceration, history of recurrent falls , s/p bilateral knee suturing in the ED, Seen by orthopedic team. will be followed by wound team in TCU. Managed on a short course of prophylactic antibiotics. Seen by infectious disease. 2. Left radial neck fracture with small joint effusion, noted on x-rays of left elbow, s by orthopedics team, acute fracture ruled out 3. Acute kidney injury on CKD stage III, creatinine improved, was 1.37 at discharge , was off diuretics, aldactone, resumed on Lasix 20 mg every other day because he was starting to have generalized edema, needs BMP repeated in the outpatient 4. CAD status post quadruple bypass, multiple stents, chronic systolic heart failure, last EF 20-25%, history of V. tach, status post AICD, chronic A. fib, stable He was off Coumadin and baby aspirin on account of hematomas and bruises from the fall. Discussed with Dr. Hewitt, patient is okay to be off anticoagulants, should be on aspirin 325 mg p.o. daily, which was started. Patient will follow up with Dr. Hewitt within 2 weeks. Appointment was made prior to discharge. 5. COPD, possible bronchiectasis with pulmonary fibrosis and obstructive sleep apnea with morbid obesity, chronic 3 L of oxygen at home 6. Type 2 diabetes mellitus, HbA1c is 5.4, diet controlled, not on any medications Discharge Diet: Low fat/ Low Cholesterol, 2000 mg Sodium Diet, Carb Control Diet Discharge Activity: Return to Normal Activity Home Medications: Medications to take at Discharge Albuterol Aerosols [Ventolin Aerosols] 2.5 mg INHALATION Q6H PRN PRN 06/02/17 Benzonatate [Tessalon Perle] 100 mg PO QHS 06/02/17 Carvedilol [Coreg] 12.5 mg PO BID 06/02/17 Clotrimazole [Lotrimin] 1 applicatio TOPICAL BID 06/02/17 Furosemide [Lasix] 20 mg PO QODAY 06/02/17 budesonide-formoterol HFA 160 mcg-4.5 mcg/actuation aerosol inhaler 2 puff INHALATION BID 08/04/17 levothyroxine 75 mcg tablet 75 mcg PO MOTUWETHFRSA tab 08/04/17 tiotropium bromide 18 mcg capsule with inhalation device 18 mcg INHALATION QDAY 08/06/17 Dronedarone Hydrochloride [Multaq] 400 mg PO BID 09/11/17 Levothyroxine [Synthroid] 150 mcg PO SHEPHERD 10/28/17 Metoclopramide [Metoclopramide HCl] 5 mg PO QHS 10/28/17 Pantoprazole Sodium [Protonix] 20 mg PO BID 10/28/17 Venlafaxine HCl [Venlafaxine HCl ER] 150 mg PO DAILY 10/28/17 Acetaminophen [Tylenol] 1,000 mg PO Q8 10/31/17 Aspirin 325 mg PO DAILY@0800 10/31/17 Glucerna Shake 120 ml PO TIDCM 10/31/17 Insulin Lispro [Humalog KwikPen] See Protocol SQ ACHS 10/31/17 Lidocaine [Lidoderm Patch] 1 patch TOPICAL DAILY 10/31/17 Primary Care Physician: Anna Umana DO [Primary Care Provider] - Please follow up with your Primary Care Physician in: within 2 weeks Please Follow Up With: Sanya Hewitt MD When: within 2 weeks Disposition: [facility] facility Minutes spent on discharge:: 45 Patient Condition:: Stable Medical Necessity - Tobacco Use Smoking Status: Former smoker Tobacco Use: Cigarettes Meaningful Use Info Meaningful Use Diagnoses (Choose all that apply): None applicable Code Visit Inpatient E&M: 99780 Disch Hosp
[2017-10-31 11:31] LABS: Bedside Glucose 116 mg/dL (70-110)
--- NOTE | 2017-10-31 11:51 | CASEMGMT ---
Pt is ready for discharge to TCU today. SW faxed all discharge instructions to TCU, let pt know and he would like SW to call his and let her know. They ordered lunch for 1pm and the plan is for pt to eat in TCU. SW called , let her know pt is going to TCU and she can meet him over there for lunch at 1pm. states understanding, no further needs, pt to TCU today. SELAM Mcallister, SPECIAL LIBRARY LIBRARIAN
[2017-10-31 12:00] VITALS: BP 102/59; PULSE 61; RESP 18
== END 2017-10-31 12:12 | disposition skilled nursing facility (03) | DRG 563 ==
LOC: ED 14:04 → MS2 16:33
PROVIDERS: Admitting Provider Internal Medicine; Emergency Provider Emergency Medicine; Family Provider Internal Medicine; PCP Internal Medicine; Visit Provider Internal Medicine
DX: S52.135A Nondisplaced fracture of neck of left radius, initial encounter for closed fracture (principal); N17.9 Acute kidney failure, unspecified; I13.0 Hypertensive heart and chronic kidney disease with heart failure and stage 1 through stage 4 chronic kidney disease, or unspecified chronic kidney disease; I50.22 Chronic systolic (congestive) heart failure; J96.10 Chronic respiratory failure, unspecified whether with hypoxia or hypercapnia; S81.012A Laceration without foreign body, left knee, initial encounter; S81.011A Laceration without foreign body, right knee, initial encounter; N18.3 Chronic kidney disease, stage 3 (moderate); G47.33 Obstructive sleep apnea (adult) (pediatric); S22.43XS Multiple fractures of ribs, bilateral, sequela; E66.01 Morbid (severe) obesity due to excess calories; J44.9 Chronic obstructive pulmonary disease, unspecified; E78.5 Hyperlipidemia, unspecified; E11.22 Type 2 diabetes mellitus with diabetic chronic kidney disease; I25.10 Atherosclerotic heart disease of native coronary artery without angina pectoris; S51.011A Laceration without foreign body of right elbow, initial encounter; I25.2 Old myocardial infarction; I48.2 Chronic atrial fibrillation; R29.6 Repeated falls; W18.39XA Other fall on same level, initial encounter; Y93.01 Activity, walking, marching and hiking; Y92.89 Other specified places as the place of occurrence of the external cause; Z79.01 Long term (current) use of anticoagulants; Z95.1 Presence of aortocoronary bypass graft; Z68.34 Body mass index [BMI] 34.0-34.9, adult; Z71.3 Dietary counseling and surveillance; Z95.5 Presence of coronary angioplasty implant and graft; Z86.718 Personal history of other venous thrombosis and embolism; Z95.810 Presence of automatic (implantable) cardiac defibrillator; Z87.891 Personal history of nicotine dependence; Z99.81 Dependence on supplemental oxygen; Z96.653 Presence of artificial knee joint, bilateral
CPT/HCPCS: 70450; 71045; 73080; 73564; 78306; 80048; 80076; 82962; 83036; 83880; 84484; 85014; 85018; 85025; 85610; 87641; 93005; 94640; 97110; 97162; 97165; 97530; 97802; 99285; J7040; A4216

== ENCOUNTER 2017-10-31 12:19 | Inpatient (IN) | payer MEDICARE, OTHER, SELFPAY ==
[2017-10-31 12:46] VITALS: BP 108/61; PULSE 59; RESP 16; TEMP 36.4; O2SAT 100
--- NOTE | 2017-10-31 12:46 | NURSING ---
Patient admitted to room 7 from med surg via bed. Patient oriented to room and call light system explained.
[2017-10-31 14:50] VITALS: BMI 35.1
[2017-10-31] MEDS: Acetaminophen 500 MG Tablet 1000 MG PO ×2 (14:52→21:18)
[2017-10-31 15:26] VITALS: BP 91/50; PULSE 60; RESP 22; TEMP 36.6; O2SAT 99
[2017-10-31 15:28] VITALS: O2SAT 99
--- NOTE | 2017-10-31 15:28 | PCM.HP.STD ---
Problem List (1) Fall Status: Acute (2) Left radial fracture Status: Acute (3) Knee laceration Status: Acute (4) Cellulitis Status: Acute (5) Acute on chronic kidney failure Status: Acute (6) Obesity Status: Chronic (7) Deep vein thrombosis Status: Chronic (8) Bronchiectasis Status: Chronic (9) Chronic systolic heart failure Status: Chronic (10) Coronary artery disease Status: Chronic (11) Myocardial infarction Status: Chronic (12) Diabetes mellitus Status: Chronic (13) Hypertension Status: Chronic (14) Hypothyroidism Status: Chronic (15) Nausea Status: Chronic (16) GERD (gastroesophageal reflux disease) Status: Chronic (17) Depression Status: Chronic (18) ALIVIA (obstructive sleep apnea) Status: Chronic (19) COPD (chronic obstructive pulmonary disease) Status: Chronic Qualifiers: (20) Atrial fibrillation Status: Chronic Qualifiers: (21) HLD (hyperlipidemia) Status: Chronic Qualifiers: History of Present Illness Date of Admission: 10/31/17 Chief Complaint: Here for rehabilitation, strengthening, prior to discharge home with spouse. The patient is a 82 year old Male with below past medical history presented to [facility] Emergency Department 10/28/2017 for fall. 10/28/2017 CT brain chronic involutional changes of brain. 10/28/2017 X-ray left elbow, left radial neck fracture, small joint effusion. 10/28/2017 X-ray left knee, constrained left knee arthroplasty, swelling. Unable to get off toilet due to weakness. Daughter in law helped him off toilet. Walked down [place], fell on knees, elbow. No head injury. Brisk bleeding from knees. On coumadin for atrial fibrillation, DVT, INR 4.7, 1 day prior, coumadin held. WBC normal, Hemoglobin 11.2, BUN 33, Cr 1.7. INR 2.8. Bilateral knee lacerations, sutured. Left arm sugar tong splinted. 10/28/[address]. Herndon consulted left radial fracture. Diuretic held for acute kidney injury. Hold for coumadin for bleeding. 10/29/2017 Chest X-ray Moderate cardiomegaly, bilateral lower lobe atelectasis or infiltrates. 10/28/2017 Dr. Siddhartha Mae recommended wound care, antibiotics. No surgery necessary. 10/29/2017 Dr. Sahu changing from Cefazolin to short course of Keflex for bilateral knee cellulitis. Bilateral knee wounds per wound team. Left radial neck fractured ruled out by orthopedics. Acute Kidney Injury off Aldactone, Lasix, Lasix resumed for swelling. Off coumadin due to risk of bleeding. Dr. Hewitt recommends Aspirin 325MG for atrial fibrillation. 10/31/2017 Admit to TCU for rehabilitation, strengthening, wound care, prior to discharge home with spouse. Past Medical History Past Medical History (Chronic Problems): Chronic Problems (Last Reviewed 08/06/17 @ 15:23 by Joelle Vega) Obesity (Chronic) Deep vein thrombosis (Chronic) Bronchiectasis (Chronic) Chronic systolic heart failure (Chronic) Coronary artery disease (Chronic) Myocardial infarction (Chronic) Diabetes mellitus (Chronic) Hypertension (Chronic) Hypothyroidism (Chronic) Nausea (Chronic) GERD (gastroesophageal reflux disease) (Chronic) Depression (Chronic) Obesity (BMI 30.0-34.9) (Chronic) ALIVIA (obstructive sleep apnea) (Chronic) History of DVT (deep vein thrombosis) (Chronic) COPD (chronic obstructive pulmonary disease) (Chronic) CKD (chronic kidney disease) stage 3, GFR 30-59 ml/min (Chronic) 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) Atrial fibrillation (Chronic) Cardiac pacemaker in situ (Chronic) Ventricular tachycardia (Chronic) Chronic systolic congestive heart failure (Chronic) Presence of stent in coronary artery (Chronic ~06/20/04) PTCA/DO to mid RCA 06/20/04 H/O percutaneous transluminal coronary angioplasty (Chronic) 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) CABG x4-PABLITO to LAD, ZIMMERMAN to DX, SVG to CX, SVG to RCA 1985 Atherosclerotic heart disease of [place] coronary artery without angina pectoris (Chronic) CABG x4-PABLITO to LAD, ZIMMERMAN to DX, SVG to CX, SVG to RCA 1985; PTCA/DO to mid RCA 06/20/04 Ischemic cardiomyopathy (Chronic) Benign essential hypertension (Chronic) Type II diabetes mellitus (Chronic) HLD (hyperlipidemia) (Chronic) AICD (automatic cardioverter/defibrillator) present (Chronic) implantation 04/21; gen change and pocket revision 03/17/13 Allergies fexofenadine Adverse Reaction (Severe, Verified 10/28/17 12:08) Cough furosemide [From Lasix] Adverse Reaction (Severe, Verified 10/28/17 12:08) Unknown prednisone Adverse Reaction (Severe, Verified 10/28/17 12:08) Unknown acetaminophen [From Percocet] Adverse Reaction (Unknown, Verified 10/28/17 12:08) Unknown oxycodone [From Percocet] Adverse Reaction (Unknown, Verified 10/28/17 12:08) Unknown amiodarone Adverse Reaction (Verified 10/28/17 12:08) affects his lungs/breathing azithromycin Adverse Reaction (Verified 10/28/17 12:08) Other PATIENT STATES HE LOST HIS HEARING AND HIS HAIR levofloxacin [From Levaquin] Adverse Reaction (Verified 10/28/17 12:08) Other linezolid [From Zyvox] Adverse Reaction (Verified 10/28/17 12:08) decreased platelets morphine Adverse Reaction (Verified 10/28/17 12:08) agitated tramadol Adverse Reaction (Verified 10/28/17 12:08) interferes with another medication he is on Home Medications: Ambulatory Orders Medication Instructions Recorded Albuterol Aerosols [Ventolin 2.5 mg INHALATION Q6H PRN PRN 06/02/17 Aerosols] Benzonatate [Tessalon Perle] 100 mg PO QHS 06/02/17 Carvedilol [Coreg] 12.5 mg PO BID 06/02/17 Clotrimazole [Lotrimin] 1 applicatio TOPICAL BID 06/02/17 Furosemide [Lasix] 20 mg PO QODAY 06/02/17 budesonide-formoterol HFA 160 2 puff INHALATION BID 08/04/17 mcg-4.5 mcg/actuation aerosol inhaler levothyroxine 75 mcg tablet 75 mcg PO MOTUWETHFRSA tab 08/04/17 tiotropium bromide 18 mcg capsule 18 mcg INHALATION QDAY 08/06/17 with inhalation device Dronedarone Hydrochloride [Multaq] 400 mg PO BID 09/11/17 Levothyroxine [Synthroid] 150 mcg PO SHEPHERD 10/28/17 Metoclopramide [Metoclopramide HCl] 5 mg PO QHS 10/28/17 Pantoprazole Sodium [Protonix] 20 mg PO BID 10/28/17 Venlafaxine HCl [Venlafaxine HCl 150 mg PO DAILY 10/28/17 ER] Acetaminophen [Tylenol] 1,000 mg PO Q8 10/31/17 Aspirin 325 mg PO DAILY@0800 10/31/17 Glucerna Shake 120 ml PO TIDCM 10/31/17 Insulin Lispro [Humalog KwikPen] See Protocol SQ ACHS 10/31/17 Lidocaine [Lidoderm Patch] 1 patch TOPICAL DAILY 10/31/17 Surgical History: coronary bypass surgery, pacemaker implantation, total knee arthroplasty - BL, - - 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 Jennings, PCI/stents. Psychiatric History: No pertinent psych hx Lives: Spouse/ Significant Other Smoking Status: Former smoker Tobacco Use: Non-smoker Alcohol: None Drugs: None - *Family History Maternal History Items: No pertinent history Paternal History Items: No pertinent history Review of Systems Constitutional: Denies: Chills, Fever, Weight Change HEENT: Denies: Head Aches, Sinus Congestion, Sinus Drainage Cardiovascular: Denies: Chest Pain, Palpitations Respiratory: Reports: Shortness of Breath. Denies: Cough, Shortness of breath at rest, Sputum production Gastrointestinal: Denies: Abdominal Pain, Nausea, Vomiting Genitourinary: Denies: Dysuria Musculoskeletal: Denies: Joint Pain, Joint Tenderness Skin: Denies: Rash, Wounds Neurological: Denies: Numbness, Tingling, Focal weakness Psychiatric: Denies: Anxiety, Depression, Homicidal Ideations, Suicidal Ideations Hematologic/ Lymphatic: Denies: Easy Bruising, Easy Bleeding VTE Information - Inpt Only VTE Present on Admission: No VTE Mechan Device Prophylaxis: SCD's VTE Pharm Prophylaxis ordered?: No Reason prophylaxis not ordered:: Medical Contraindication Patient Problems: Active and Suspected Problems (Last Reviewed 08/06/17 @ 15:23 by Joelle Vega) Fall (Acute) Left radial fracture (Acute) Knee laceration (Acute) Cellulitis (Acute) Acute on chronic kidney failure (Acute) - Physical Exam General: Alert, Oriented x3, Cooperative HEENT: Atraumatic, PERRLA, EOMI, Normocephalic Neck: Supple, No JVD, Negative Carotid Bruits Lungs: Rales - Bibasilar., Wheezes Cardiovascular: Regular rate, No murmurs Abdomen: Bowel Sounds Present, Soft, Non Tender Extremities: No edema, Capillary Refill Less than 3 Seconds Skin: No rashes, No breakdown Musculoskeletal: No Tenderness to Palpation of Joints or Extremities Neurological: Cranial nerves II-XII grossly intact Psych/Mental Status: Normal Affect, Appropriate Vital Signs Temp Pulse Resp BP Pulse Ox 97.8 F 60 22 H 91/50 L 99 10/31/17 15:26 10/31/17 15:26 10/31/17 15:26 10/31/17 15:10/31/17 15:28 Oxygen Flow Rate (L/min) 3 Oxygen Delivery Method Nasal Cannula Weight: 98.7 kg Assessment/Plan Active and Suspected Problems (Last Reviewed 08/06/17 @ 15:23 by Joelle Vega) Fall (Acute) Left radial fracture (Acute) Knee laceration (Acute) Cellulitis (Acute) Acute on chronic kidney failure (Acute) 82 year old male with below past medical history hospitalized for bilateral knee lacerations/cellulitis, complicated by acute kidney injury, admitted to TCU with debility, here for rehabilitation, strengthening, prior to discharge with spouse. Debility - PT/OT. Pain - Tylenol 1000MG Q8H, Lidoderm patch 1 patch daily. Bowel - Miralax 17GM daily, Senna/colace 1 tablet BID, Dulcolax 10MG PO daily PRN. Pneumonia vaccination - Administer Prevnar 13 and/or Pneumovax 23 as necessary. DVT prophylaxis - Contraindicated due to bleeding. COPD - Albuterol 2.5MG Q6H PRN, Advair 250/50 1 puff BID, Spiriva 18MCG daily, VEST therapy twice daily. Atrial Fibrillation - Coreg 12.5MG BID, Multaq 400MG BID, Aspirin 325MG daily. Cough - Tessalon 100MG QHS. Tinea Corporis - Lotrimin BID groin, abdomen. Chronic systolic heart failure - Coreg 12.5MG BID, Lasix 20MG every other day. Nutrition - Glucerna 120ML TID. Hypothyroidism - Levothyroxine 75MCG 6 days/week, 150MCG 1 day/week. Nausea - Reglan 5MG QHS. GERD - Pantoprazole 20MG BID. Depression - Venlafaxine XR 150MG daily.
[2017-10-31 15:44] VITALS: BMI 35.1
--- NOTE | 2017-10-31 15:52 | HP.PCM_ITS ---
Problem List (1) Fall Status: Acute (2) Left radial fracture Status: Acute (3) Knee laceration Status: Acute (4) Cellulitis Status: Acute (5) Acute on chronic kidney failure Status: Acute (6) Obesity Status: Chronic (7) Deep vein thrombosis Status: Chronic (8) Bronchiectasis Status: Chronic (9) Chronic systolic heart failure Status: Chronic (10) Coronary artery disease Status: Chronic (11) Myocardial infarction Status: Chronic (12) Diabetes mellitus Status: Chronic (13) Hypertension Status: Chronic (14) Hypothyroidism Status: Chronic (15) Nausea Status: Chronic (16) GERD (gastroesophageal reflux disease) Status: Chronic (17) Depression Status: Chronic (18) ALIVIA (obstructive sleep apnea) Status: Chronic (19) COPD (chronic obstructive pulmonary disease) Status: Chronic Qualifiers: (20) Atrial fibrillation Status: Chronic Qualifiers: (21) HLD (hyperlipidemia) Status: Chronic Qualifiers: History of Present Illness Date of Admission: 10/31/17 Chief Complaint: Here for rehabilitation, strengthening, prior to discharge home with spouse. The patient is a 82 year old Male with below past medical history presented to [facility] Emergency Department 10/28/2017 for fall. 10/28/2017 CT brain chronic involutional changes of brain. 10/28/2017 X-ray left elbow, left radial neck fracture, small joint effusion. 10/28/2017 X-ray left knee, constrained left knee arthroplasty, swelling. Unable to get off toilet due to weakness. Daughter in law helped him off toilet. Walked down [place], fell on knees, elbow. No head injury. Brisk bleeding from knees. On coumadin for atrial fibrillation, DVT, INR 4.7, 1 day prior, coumadin held. WBC normal, Hemoglobin 11.2, BUN 33, Cr 1.7. INR 2.8. Bilateral knee lacerations, sutured. Left arm sugar tong splinted. 10/28/[address]. Herndon consulted left radial fracture. Diuretic held for acute kidney injury. Hold for coumadin for bleeding. 10/29/2017 Chest X-ray Moderate cardiomegaly, bilateral lower lobe atelectasis or infiltrates. 10/28/2017 Dr. Siddhartha Mae recommended wound care, antibiotics. No surgery necessary. 10/29/2017 Dr. Sahu changing from Cefazolin to short course of Keflex for bilateral knee cellulitis. Bilateral knee wounds per wound team. Left radial neck fractured ruled out by orthopedics. Acute Kidney Injury off Aldactone, Lasix, Lasix resumed for swelling. Off coumadin due to risk of bleeding. Dr. Hewitt recommends Aspirin 325MG for atrial fibrillation. 10/31/2017 Admit to TCU for rehabilitation, strengthening, wound care, prior to discharge home with spouse. Past Medical History Past Medical History (Chronic Problems): Chronic Problems (Last Reviewed 08/06/17 @ 15:23 by Joelle Vega) Obesity (Chronic) Deep vein thrombosis (Chronic) Bronchiectasis (Chronic) Chronic systolic heart failure (Chronic) Coronary artery disease (Chronic) Myocardial infarction (Chronic) Diabetes mellitus (Chronic) Hypertension (Chronic) Hypothyroidism (Chronic) Nausea (Chronic) GERD (gastroesophageal reflux disease) (Chronic) Depression (Chronic) Obesity (BMI 30.0-34.9) (Chronic) ALIVIA (obstructive sleep apnea) (Chronic) History of DVT (deep vein thrombosis) (Chronic) COPD (chronic obstructive pulmonary disease) (Chronic) CKD (chronic kidney disease) stage 3, GFR 30-59 ml/min (Chronic) 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) Atrial fibrillation (Chronic) Cardiac pacemaker in situ (Chronic) Ventricular tachycardia (Chronic) Chronic systolic congestive heart failure (Chronic) Presence of stent in coronary artery (Chronic ~06/20/04) PTCA/DO to mid RCA 06/20/04 H/O percutaneous transluminal coronary angioplasty (Chronic) 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) CABG x4-PABLITO to LAD, ZIMMERMAN to DX, SVG to CX, SVG to RCA 1985 Atherosclerotic heart disease of [place] coronary artery without angina pectoris (Chronic) CABG x4-PABLITO to LAD, ZIMMERMAN to DX, SVG to CX, SVG to RCA 1985; PTCA/DO to mid RCA 06/20/04 Ischemic cardiomyopathy (Chronic) Benign essential hypertension (Chronic) Type II diabetes mellitus (Chronic) HLD (hyperlipidemia) (Chronic) AICD (automatic cardioverter/defibrillator) present (Chronic) implantation 04/21; gen change and pocket revision 03/17/13 Allergies fexofenadine Adverse Reaction (Severe, Verified 10/28/17 12:08) Cough furosemide [From Lasix] Adverse Reaction (Severe, Verified 10/28/17 12:08) Unknown prednisone Adverse Reaction (Severe, Verified 10/28/17 12:08) Unknown acetaminophen [From Percocet] Adverse Reaction (Unknown, Verified 10/28/17 12:08 ) Unknown oxycodone [From Percocet] Adverse Reaction (Unknown, Verified 10/28/17 12:08) Unknown amiodarone Adverse Reaction (Verified 10/28/17 12:08) affects his lungs/breathing azithromycin Adverse Reaction (Verified 10/28/17 12:08) Other PATIENT STATES HE LOST HIS HEARING AND HIS HAIR levofloxacin [From Levaquin] Adverse Reaction (Verified 10/28/17 12:08) Other linezolid [From Zyvox] Adverse Reaction (Verified 10/28/17 12:08) decreased platelets morphine Adverse Reaction (Verified 10/28/17 12:08) agitated tramadol Adverse Reaction (Verified 10/28/17 12:08) interferes with another medication he is on Home Medications: Ambulatory Orders Medication Instructions Recorded Albuterol Aerosols [Ventolin 2.5 mg INHALATION Q6H PRN PRN 06/02/17 Aerosols] Benzonatate [Tessalon Perle] 100 mg PO QHS 06/02/17 Carvedilol [Coreg] 12.5 mg PO BID 06/02/17 Clotrimazole [Lotrimin] 1 applicatio TOPICAL BID 06/02/17 Furosemide [Lasix] 20 mg PO QODAY 06/02/17 budesonide-formoterol HFA 160 2 puff INHALATION BID 08/04/17 mcg-4.5 mcg/actuation aerosol inhaler levothyroxine 75 mcg tablet 75 mcg PO MOTUWETHFRSA tab 08/04/17 tiotropium bromide 18 mcg capsule 18 mcg INHALATION QDAY 08/06/17 with inhalation device Dronedarone Hydrochloride [Multaq] 400 mg PO BID 09/11/17 Levothyroxine [Synthroid] 150 mcg PO SHEPHERD 10/28/17 Metoclopramide [Metoclopramide HCl] 5 mg PO QHS 10/28/17 Pantoprazole Sodium [Protonix] 20 mg PO BID 10/28/17 Venlafaxine HCl [Venlafaxine HCl 150 mg PO DAILY 10/28/17 ER] Acetaminophen [Tylenol] 1,000 mg PO Q8 10/31/17 Aspirin 325 mg PO DAILY@0800 10/31/17 Glucerna Shake 120 ml PO TIDCM 10/31/17 Insulin Lispro [Humalog KwikPen] See Protocol SQ ACHS 10/31/17 Lidocaine [Lidoderm Patch] 1 patch TOPICAL DAILY 10/31/17 Surgical History: coronary bypass surgery, pacemaker implantation, total knee arthroplasty - BL, - - 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 Jennings , PCI/stents. Psychiatric History: No pertinent psych hx Lives: Spouse/ Significant Other Smoking Status: Former smoker Tobacco Use: Non-smoker Alcohol: None Drugs: None - *Family History Maternal History Items: No pertinent history Paternal History Items: No pertinent history Review of Systems Constitutional: Denies: Chills, Fever, Weight Change HEENT: Denies: Head Aches, Sinus Congestion, Sinus Drainage Cardiovascular: Denies: Chest Pain, Palpitations Respiratory: Reports: Shortness of Breath. Denies: Cough, Shortness of breath at rest, Sputum production Gastrointestinal: Denies: Abdominal Pain, Nausea, Vomiting Genitourinary: Denies: Dysuria Musculoskeletal: Denies: Joint Pain, Joint Tenderness Skin: Denies: Rash, Wounds Neurological: Denies: Numbness, Tingling, Focal weakness Psychiatric: Denies: Anxiety, Depression, Homicidal Ideations, Suicidal Ideations Hematologic/ Lymphatic: Denies: Easy Bruising, Easy Bleeding VTE Information - Inpt Only VTE Present on Admission: No VTE Mechan Device Prophylaxis: SCD's VTE Pharm Prophylaxis ordered?: No Reason prophylaxis not ordered:: Medical Contraindication Patient Problems: Active and Suspected Problems (Last Reviewed 08/06/17 @ 15:23 by Joelle Vega) Fall (Acute) Left radial fracture (Acute) Knee laceration (Acute) Cellulitis (Acute) Acute on chronic kidney failure (Acute) - Physical Exam General: Alert, Oriented x3, Cooperative HEENT: Atraumatic, PERRLA, EOMI, Normocephalic Neck: Supple, No JVD, Negative Carotid Bruits Lungs: Rales - Bibasilar., Wheezes Cardiovascular: Regular rate, No murmurs Abdomen: Bowel Sounds Present, Soft, Non Tender Extremities: No edema, Capillary Refill Less than 3 Seconds Skin: No rashes, No breakdown Musculoskeletal: No Tenderness to Palpation of Joints or Extremities Neurological: Cranial nerves II-XII grossly intact Psych/Mental Status: Normal Affect, Appropriate Vital Signs Temp Pulse Resp BP Pulse Ox 97.8 F 60 22 H 91/50 L 99 10/31/17 15:26 10/31/17 15:26 10/31/17 15:26 10/31/17 15:26 10/31/17 15:28 Oxygen Flow Rate (L/min) 3 Oxygen Delivery Method Nasal Cannula Weight: 98.7 kg Assessment/Plan Active and Suspected Problems (Last Reviewed 08/06/17 @ 15:23 by Joelle Vega) Fall (Acute) Left radial fracture (Acute) Knee laceration (Acute) Cellulitis (Acute) Acute on chronic kidney failure (Acute) 82 year old male with below past medical history hospitalized for bilateral knee lacerations/cellulitis, complicated by acute kidney injury, admitted to TCU with debility, here for rehabilitation, strengthening, prior to discharge with spouse. * Debility - PT/OT. * Pain - Tylenol 1000MG Q8H, Lidoderm patch 1 patch daily. * Bowel - Miralax 17GM daily, Senna/colace 1 tablet BID, Dulcolax 10MG PO daily PRN. * Pneumonia vaccination - Administer Prevnar 13 and/or Pneumovax 23 as necessary. * DVT prophylaxis - Contraindicated due to bleeding. * COPD - Albuterol 2.5MG Q6H PRN, Advair 250/50 1 puff BID, Spiriva 18MCG daily , VEST therapy twice daily. * Atrial Fibrillation - Coreg 12.5MG BID, Multaq 400MG BID, Aspirin 325MG daily. * Cough - Tessalon 100MG QHS. * Tinea Corporis - Lotrimin BID groin, abdomen. * Chronic systolic heart failure - Coreg 12.5MG BID, Lasix 20MG every other day. * Nutrition - Glucerna 120ML TID. * Hypothyroidism - Levothyroxine 75MCG 6 days/week, 150MCG 1 day/week. * Nausea - Reglan 5MG QHS. * GERD - Pantoprazole 20MG BID. * Depression - Venlafaxine XR 150MG daily.
[2017-10-31 17:10] LABS: Bedside Glucose 88 mg/dL (70-110)
[2017-10-31] MEDS: Glucerna Shake 120 ML LIQUID PO (18:04)
[2017-10-31] MEDS: Pantoprazole Sodium 20 MG Tablet PO (18:06)
[2017-10-31 21:10] LABS: Bedside Glucose 103 mg/dL (70-110)
[2017-10-31] MEDS: Benzonatate 100 MG Capsule PO (21:18)
[2017-10-31] MEDS: Metoclopramide 5 MG TABLET PO (21:19)
[2017-11-01 05:03] LABS: Absolute Lymphocyte Count 2.92 X10^3/ul (0.83-4.51); Absolute Neutrophil Count 5.2 X10^3/uL (2.0-7.7); Basophil# 0.01 X10^3/uL; Basophil% 0.1 % (0-1); Eosinophils% 3.1 % (0-5); Hematocrit 30.2 % (40-54); Hemoglobin 9.9 g/dl (13.0-16.5); Lymphocyte # 2.92 X10^3/ul (4.0); Mean Corp Hgb Conc 32.8 g/gl (32-36); Mean Corpuscular Hgb 28.1 pg (27.0-32.0); Mean Corpuscular Volume 85.8 fL (80-94); Mean Platelet Vol. 9.7 fl (6.2-12.0); Monocyte# 1.21 X10^3/uL; Monocyte% 12.4 % (0-10); Neutrophil # 5.15 X10^3/uL (2.7-7.7); Platelet Count 222 K/mm3 (150-450); Red Blood Count 3.52 M/mm3 (4.6-6.2); White Blood Count 9.7 K/mm3 (4.4-11.0)
[2017-11-01 05:12] LABS: POSITIVE COUNT NO; POSITIVE DIFFERENTIAL NO; POSITIVE MORPHOLOGY NO
[2017-11-01 05:23] LABS: BUN 31 mg/dL (7-18); Creatinine, Serum 1.51 mg/dL (0.70-1.30); Estimated Creatinine Clearance 35.21 ml/min; Glucose 91 mg/dL (74-106)
[2017-11-01 05:24] LABS: Anion Gap 6 (5-15); BUN/Creat Ratio 20.5 RATIO (10-20); Calcium,Total 7.2 mg/dL (8.5-10.1); Chloride 103 mmol/L (98-107); EST Glomerular Filtration Rate 47 mL/min (>60); Est Glom Filt Rate - Afr Amer 57 mL/min (>60); Potassium 4.5 mmol/L (3.5-5.1); Sodium Level 137 mmol/L (136-145)
[2017-11-01] MEDS: Acetaminophen 500 MG Tablet 1000 MG PO ×3 (06:22→21:47)
[2017-11-01] MEDS: Carvedilol 12.5 MG Tablet PO ×2 (06:23→18:02)
[2017-11-01] MEDS: Pantoprazole Sodium 20 MG Tablet PO ×2 (06:23→18:02)
[2017-11-01] MEDS: Venlafaxine XR 150 MG Capsule PO (06:23)
[2017-11-01] MEDS: Levothyroxine 75 MCG Tablet PO (06:24)
[2017-11-01] MEDS: Lidocaine 5% Patch 1 PATCH TOPICAL (06:25)
[2017-11-01 06:41] LABS: Bedside Glucose 82 mg/dL (70-110)
--- NOTE | 2017-11-01 08:36 | NURSING ---
Dr. Parker removed AM labs, N.O. for iron supplement, pt updated.
[2017-11-01] MEDS: Aspirin 325 MG Tablet PO (08:48)
[2017-11-01] MEDS: Glucerna Shake 120 ML LIQUID PO ×3 (08:48→17:58)
[2017-11-01 10:00] VITALS: PULSE 67; RESP 20; O2SAT 96
[2017-11-01] MEDS: Tuberculin,Purif.prot.deriv. 50 TU/ML Vial 5 ML ID (11:53)
[2017-11-01 15:44] VITALS: BP 118/57; PULSE 60; RESP 18; TEMP 36.3; O2SAT 98
--- NOTE | 2017-11-01 18:06 | NURSING ---
Dr. Parker aware of 4 lbs wt gain since yesterday, N.O. received, pt updated on all.
[2017-11-01 20:55] LABS: Bedside Glucose 103 mg/dL (70-110)
[2017-11-01] MEDS: Benzonatate 100 MG Capsule PO ×2 (21:46→21:47)
[2017-11-01] MEDS: Metoclopramide 5 MG TABLET PO (21:47)
[2017-11-01] MEDS: Furosemide 40 MG/4 ML Vial IV (21:50)
[2017-11-02] MEDS: Polyethylene Glycol 3350 17 GM PACKET PO (04:32)
[2017-11-02] MEDS: Acetaminophen 500 MG Tablet 1000 MG PO ×3 (04:33→21:53)
[2017-11-02] MEDS: Pantoprazole Sodium 20 MG Tablet PO ×2 (04:33→17:39)
[2017-11-02] MEDS: Venlafaxine XR 150 MG Capsule PO (04:34)
[2017-11-02] MEDS: Senna/Docusate Sodium 1 Tablet PO (04:34)
[2017-11-02] MEDS: Carvedilol 12.5 MG Tablet PO ×2 (04:34→17:39)
[2017-11-02] MEDS: Lidocaine 5% Patch 1 PATCH TOPICAL (04:39)
[2017-11-02] MEDS: Levothyroxine 150 MCG Tablet PO (06:43)
[2017-11-02] MEDS: Furosemide 40 MG/4 ML Vial IV (06:43)
[2017-11-02 06:56] LABS: Bedside Glucose 78 mg/dL (70-110)
[2017-11-02] MEDS: Aspirin 325 MG Tablet PO (08:24)
[2017-11-02] MEDS: Iron Polysaccharide Complex 150 MG CAPSULE PO (08:24)
[2017-11-02] MEDS: Glucerna Shake 120 ML LIQUID PO ×3 (08:24→17:28)
--- NOTE | 2017-11-02 14:01 | NURSING ---
Home meds reviewed with and resident. Resident stating that he took Lipitor 20mg QHS and would like that started here. Dr. Parker updated and N.O. received.
[2017-11-02 15:24] VITALS: BP 102/69; PULSE 63; RESP 20; TEMP 36.4; O2SAT 98
[2017-11-02] MEDS: Metoclopramide 5 MG TABLET PO (21:53)
[2017-11-02] MEDS: Atorvastatin Calcium 20 MG Tablet PO (21:53)
[2017-11-02 22:00] VITALS: PULSE 62; O2SAT 93
[2017-11-03] MEDS: Lidocaine 5% Patch 1 PATCH TOPICAL (04:52)
[2017-11-03] MEDS: Pantoprazole Sodium 20 MG Tablet PO ×2 (04:53→17:33)
[2017-11-03] MEDS: Polyethylene Glycol 3350 17 GM PACKET PO (04:53)
[2017-11-03] MEDS: Senna/Docusate Sodium 1 Tablet PO (04:53)
[2017-11-03] MEDS: Levothyroxine 75 MCG Tablet PO (04:53)
[2017-11-03] MEDS: Carvedilol 12.5 MG Tablet PO ×2 (04:53→17:33)
[2017-11-03] MEDS: Venlafaxine XR 150 MG Capsule PO (04:55)
[2017-11-03] MEDS: Acetaminophen 500 MG Tablet 1000 MG PO ×3 (04:56→21:56)
[2017-11-03] MEDS: Menthol/Lanolin/Calamine/Znox 113 GM Tube 1 APPLIC TOPICAL ×3 (05:11→21:32)
[2017-11-03] MEDS: Furosemide 40 MG/4 ML Vial IV (06:18)
[2017-11-03 07:01] LABS: Bedside Glucose 91 mg/dL (70-110)
[2017-11-03 08:06] VITALS: O2SAT 98
[2017-11-03] MEDS: Aspirin 325 MG Tablet PO (08:07)
[2017-11-03] MEDS: Iron Polysaccharide Complex 150 MG CAPSULE PO (08:07)
[2017-11-03 10:51] LABS: Absolute Lymphocyte Count 2.03 X10^3/ul (0.83-4.51); Absolute Neutrophil Count 4.9 X10^3/uL (2.0-7.7); Basophil# 0.01 X10^3/uL; Basophil% 0.1 % (0-1); Eosinophil# 0.42 X10^3/uL; Eosinophils% 4.7 % (0-5); Hemoglobin 10.1 g/dl (13.0-16.5); Lymphocyte # 2.03 X10^3/ul (4.0); Lymphocyte % 22.7 % (19-41); Mean Corp Hgb Conc 32.6 g/gl (32-36); Mean Corpuscular Hgb 28.5 pg (27.0-32.0); Mean Corpuscular Volume 87.6 fL (80-94); Mean Platelet Vol. 9.5 fl (6.2-12.0); Monocyte# 1.45 X10^3/uL; Monocyte% 16.2 % (0-10); Neutrophil # 4.93 X10^3/uL (2.7-7.7); Neutrophil % 55.1 % (47-70); Platelet Count 268 K/mm3 (150-450); RBC Distribution Width CV 17.1 % (11.6-14.6); RBC Distribution Width SD 52.7 fl (35.1-43.9); Red Blood Count 3.54 M/mm3 (4.6-6.2)
[2017-11-03 10:52] LABS: POSITIVE COUNT NO; POSITIVE DIFFERENTIAL NO
[2017-11-03 10:53] LABS: POSITIVE MORPHOLOGY NO
[2017-11-03 11:22] LABS: Anion Gap 6 (5-15); BUN 31 mg/dL (7-18); BUN/Creat Ratio 21.4 RATIO (10-20); Calcium,Total 7.8 mg/dL (8.5-10.1); Chloride 102 mmol/L (98-107); Creatinine, Serum 1.45 mg/dL (0.70-1.30); EST Glomerular Filtration Rate 50 mL/min (>60); Est Glom Filt Rate - Afr Amer 60 mL/min (>60); Estimated Creatinine Clearance 36.67 ml/min; Glucose 97 mg/dL (74-106); Potassium 4.2 mmol/L (3.5-5.1); Sodium Level 137 mmol/L (136-145)
[2017-11-03] MEDS: Glucerna Shake 120 ML LIQUID PO (12:09)
--- NOTE | 2017-11-03 12:11 | PHA.CONS_ITS ---
<Gabriel Pagan - Last Filed: 11/03/17 12:00> Progress Note - Pharmacy Subjective: [] Objective: Allergies fexofenadine Adverse Reaction (Severe, Verified 10/28/17 12:08) Cough prednisone Adverse Reaction (Severe, Verified 10/28/17 12:08) Unknown acetaminophen [From Percocet] Adverse Reaction (Unknown, Verified 10/28/17 12:08 ) Unknown oxycodone [From Percocet] Adverse Reaction (Unknown, Verified 10/28/17 12:08) Unknown amiodarone Adverse Reaction (Verified 10/28/17 12:08) affects his lungs/breathing azithromycin Adverse Reaction (Verified 10/28/17 12:08) Other PATIENT STATES HE LOST HIS HEARING AND HIS HAIR levofloxacin [From Levaquin] Adverse Reaction (Verified 10/28/17 12:08) Other linezolid [From Zyvox] Adverse Reaction (Verified 10/28/17 12:08) decreased platelets morphine Adverse Reaction (Verified 10/28/17 12:08) agitated tramadol Adverse Reaction (Verified 10/28/17 12:08) interferes with another medication he is on Home Medications Medication Instructions Recorded Albuterol Aerosols [Ventolin 2.5 mg INHALATION Q6H PRN PRN 06/02/17 Aerosols] Benzonatate [Tessalon Perle] 100 mg PO QHS 06/02/17 Carvedilol [Coreg] 12.5 mg PO BID 06/02/17 Clotrimazole [Lotrimin] 1 applicatio TOPICAL BID 06/02/17 Furosemide [Lasix] 20 mg PO QODAY 06/02/17 budesonide-formoterol HFA 160 2 puff INHALATION BID 08/04/17 mcg-4.5 mcg/actuation aerosol inhaler levothyroxine 75 mcg tablet 75 mcg PO MOTUWETHFRSA tab 08/04/17 tiotropium bromide 18 mcg capsule 18 mcg INHALATION QDAY 08/06/17 with inhalation device Dronedarone Hydrochloride [Multaq] 400 mg PO BID 09/11/17 Levothyroxine [Synthroid] 150 mcg PO SHEPHERD 10/28/17 Metoclopramide [Metoclopramide HCl] 5 mg PO QHS 10/28/17 Pantoprazole Sodium [Protonix] 20 mg PO BID 10/28/17 Venlafaxine HCl [Venlafaxine HCl 150 mg PO DAILY 10/28/17 ER] Acetaminophen [Tylenol] 1,000 mg PO Q8 10/31/17 Aspirin 325 mg PO DAILY@0800 10/31/17 Glucerna Shake 120 ml PO TIDCM 10/31/17 Insulin Lispro [Humalog KwikPen] See Protocol SQ ACHS 10/31/17 Lidocaine [Lidoderm Patch] 1 patch TOPICAL DAILY 10/31/17 Atorvastatin Calcium [Lipitor] 20 mg PO QHS 11/02/17 Current Medications Generic Name Dose Route Start Last Admin Trade Name Freq PRN Reason Stop Dose Admin Acetaminophen 1,000 mg 10/31/17 14:00 11/03/17 04:56 Tylenol PO 1,000 mg Q8 RADHA Administration Albuterol Sulfate 2.5 mg 10/31/17 13:12 Ventolin Aerosols INHALATION Q6H PRN PRN SHORTNESS OF BREATH Aspirin 325 mg 11/01/17 08:00 11/03/17 08:07 Aspirin PO 325 mg DAILY@0800 RADHA Administration Atorvastatin Calcium 20 mg 11/02/17 22:00 11/02/17 21:53 Lipitor PO 20 mg QHS RADHA Administration Benzonatate 100 mg 10/31/17 22:00 11/01/17 21:47 Tessalon Perle PO 100 mg QHS RADHA Administration Bisacodyl 10 mg 10/31/17 16:11 Dulcolax PO DAILY PRN Constipation Calamine/Phenol 1 applic 11/03/17 06:00 11/03/17 05:11 Calmoseptine Ointment TOPICAL 1 applicatio TID RADHA Administration Protocol Carvedilol 12.5 mg 10/31/17 18:00 11/03/17 04:53 Coreg PO 12.5 mg BID RADHA Administration Clotrimazole 1 applicatio 10/31/17 18:00 11/03/17 04:56 Lotrimin TOPICAL 1 applicatio BID RADHA Administration Protocol Dronedarone 400 mg 10/31/17 18:00 11/03/17 04:53 Multaq PO 400 mg BID RADHA Administration Furosemide 40 mg 11/02/17 06:00 11/03/17 06:18 Lasix IV 40 mg DAILY RADHA Administration Heparin Sodium (Beef Lung) 500 unit 11/01/17 04:24 11/03/17 06:25 Heparin 500 Unit/5 Ml (100/Ml) IV 500 unit UD PRN Administration HEPARIN FLUSH Levothyroxine Sodium 150 mcg 11/02/17 06:00 11/02/17 06:43 Synthroid PO 150 mcg Shepherd@0600 RADHA Administration Levothyroxine Sodium 75 mcg 10/31/17 17:00 11/03/17 04:53 Synthroid PO 75 mcg MoTuWeThFrSa@0600 RADHA Administration Lidocaine 1 patch 11/01/17 06:00 11/03/17 04:52 Lidoderm Patch TOPICAL 1 patch DAILY RADHA Administration Protocol Metoclopramide HCl 5 mg 10/31/17 22:00 11/02/17 21:53 Metoclopramide Hcl PO 5 mg QHS RADHA Administration Nutritional Formula (Lactose Free) 120 ml 10/31/17 17:45 11/03/17 08:06 Glucerna Shake PO Not Given TIDCM RADHA Pantoprazole Sodium 20 mg 10/31/17 18:00 11/03/17 04:53 Protonix PO 20 mg BID RADHA Administration Polyethylene Glycol 17 gm 11/01/17 06:00 11/03/17 04:53 Miralax PO 17 gm DAILY RADHA Administration Polysaccharide Iron Complex 150 mg 11/02/17 08:00 11/03/17 08:07 Ferrex 150 PO 150 mg DAILYCM [facility] Administration Fluticasone/Salmeterol 1 puff 10/31/17 18:00 11/03/17 04:54 Advair 250/50 Mcg Diskus INHALATION 1 puff BID [facility] Administration Senna/Docusate Sodium 1 tablet 10/31/17 18:00 11/03/17 04:53 Senokot-S, Pikny-Colace PO 1 tablet BID RADHA Administration Sodium Chloride 10 ml 11/01/17 04:24 11/03/17 06:23 IV 10 ml UD PRN Administration R PORT FLUSH Tiotropium [place] 1 puff 11/01/17 06:00 11/03/17 04:54 Spiriva 18 Mcg INHALATION 1 puff DAILY RADHA Administration Tuberculin PPD 5 tu 11/08/17 10:00 Tubersol, Aplisol, Ppd ID 11/08/17 10:01 X1 ONE Venlafaxine HCl 150 mg 11/01/17 06:00 11/03/17 04:55 Effexor Xr PO 150 mg DAILY RADHA Administration Problem List (Last Reviewed 08/06/17 @ 15:23 by Joelle Vega) Fall (Acute) Left radial fracture (Acute) Knee laceration (Acute) Cellulitis (Acute) Acute on chronic kidney failure (Acute) Obesity (Chronic) Deep vein thrombosis (Chronic) Bronchiectasis (Chronic) Chronic systolic heart failure (Chronic) Coronary artery disease (Chronic) Myocardial infarction (Chronic) Diabetes mellitus (Chronic) Hypertension (Chronic) Hypothyroidism (Chronic) Nausea (Chronic) GERD (gastroesophageal reflux disease) (Chronic) Depression (Chronic) Vital Signs Temp Pulse Resp BP Pulse Ox 97.6 F L 62 20 H 102/69 98 11/02/17 15:24 11/02/17 22:00 11/02/17 15:24 11/02/17 15:24 11/03/17 08:06 Oxygen Flow Rate (L/min) 3 Oxygen Delivery Method Nasal Cannula Weight: 99.8 kg Body Mass Index (BMI) 35.1 Sodium 137 mmol/L (136-145) 11/03/17 10:43 Potassium 4.2 mmol/L (3.5-5.1) 11/03/17 10:43 Chloride 102 mmol/L (98-107) 11/03/17 10:43 Carbon Dioxide 29.0 mmol/L (21.0-32.0) 11/03/17 10:43 Anion Gap 6 (5-15) 11/03/17 10:43 BUN 31 mg/dL (7-18) H 11/03/17 10:43 Creatinine 1.45 mg/dL (0.70-1.30) H 11/03/17 10:43 Est GFR (MDRD) Af Amer 60 mL/min (>60) 11/03/17 10:43 Est GFR (MDRD) Non-Af 50 mL/min (>60) L 11/03/17 10:43 BUN/Creatinine Ratio 21.4 RATIO (10-20) H 11/03/17 10:43 Glucose 97 mg/dL (74-106) 11/03/17 10:43 Assessment/Plan: 1) Pain APAP scheduled, lidocaine patch. Continue to monitor daily pain scores. 2) Pulm Albuterol inh as needed, Advair inh, tiotropium inh, benzonatate at HS. Continue to montor prn medication use, for shortness of breath. 3) AFib/CHF Dronedarone twice daily, carvedilol, ASA, furosemide. BP/HR within goal ranges, K wnl, BUN/SCr at baseline. Continue to monitor BP/HR, renal function, electrolytes. 4) HLD Atorvastatin at HS. Lipids within goal range, hepatic enzymes wnl. Continue to monitor lipids, enzymes. 5) GI Pantoprazole twice daily, metoclopramide at HS. Continue to monitor s/s GI distress. 6) Hypothyroidism Levothyroxine daily. Continue to monitor s/s hyper/hypothyroidism. 7) Derm Calmoseptine, clotrimazole topically. Continue to monitor clinically. 8) Nutrition Glucerna, Fe. Continue to monitor clinically. Psychotropic Medications: 9) Depression Venlafaxine XR. Continue to monitor s/s depression. Unnecessary Medications: None Bowel Regimen: 10) Senna/s, PEG, prn bisacodyl. Continue to monitor prn medication use, for constipation/diarrhea. Date of Note:: 11/03/17 - Provider Comments Provider responsibility: Provider responsible to enter orders to implement recommendations <Mikael Parker Chi - Last Filed: 11/03/17 17:08> Progress Note - Pharmacy Subjective: [] Objective: Allergies fexofenadine Adverse Reaction (Severe, Verified 10/28/17 12:08) Cough prednisone Adverse Reaction (Severe, Verified 10/28/17 12:08) Unknown acetaminophen [From Percocet] Adverse Reaction (Unknown, Verified 10/28/17 12:08 ) Unknown oxycodone [From Percocet] Adverse Reaction (Unknown, Verified 10/28/17 12:08) Unknown amiodarone Adverse Reaction (Verified 10/28/17 12:08) affects his lungs/breathing azithromycin Adverse Reaction (Verified 10/28/17 12:08) Other PATIENT STATES HE LOST HIS HEARING AND HIS HAIR levofloxacin [From Levaquin] Adverse Reaction (Verified 10/28/17 12:08) Other linezolid [From Zyvox] Adverse Reaction (Verified 10/28/17 12:08) decreased platelets morphine Adverse Reaction (Verified 10/28/17 12:08) agitated tramadol Adverse Reaction (Verified 10/28/17 12:08) interferes with another medication he is on Home Medications Medication Instructions Recorded Albuterol Aerosols [Ventolin 2.5 mg INHALATION Q6H PRN PRN 06/02/17 Aerosols] Benzonatate [Tessalon Perle] 100 mg PO QHS 06/02/17 Carvedilol [Coreg] 12.5 mg PO BID 06/02/17 Clotrimazole [Lotrimin] 1 applicatio TOPICAL BID 06/02/17 Furosemide [Lasix] 20 mg PO QODAY 06/02/17 budesonide-formoterol HFA 160 2 puff INHALATION BID 08/04/17 mcg-4.5 mcg/actuation aerosol inhaler levothyroxine 75 mcg tablet 75 mcg PO MOTUWETHFRSA tab 08/04/17 tiotropium bromide 18 mcg capsule 18 mcg INHALATION QDAY 08/06/17 with inhalation device Dronedarone Hydrochloride [Multaq] 400 mg PO BID 09/11/17 Levothyroxine [Synthroid] 150 mcg PO SHEPHERD 10/28/17 Metoclopramide [Metoclopramide HCl] 5 mg PO QHS 10/28/17 Pantoprazole Sodium [Protonix] 20 mg PO BID 10/28/17 Venlafaxine HCl [Venlafaxine HCl 150 mg PO DAILY 10/28/17 ER] Acetaminophen [Tylenol] 1,000 mg PO Q8 10/31/17 Aspirin 325 mg PO DAILY@0800 10/31/17 Glucerna Shake 120 ml PO TIDCM 10/31/17 Insulin Lispro [Humalog KwikPen] See Protocol SQ ACHS 10/31/17 Lidocaine [Lidoderm Patch] 1 patch TOPICAL DAILY 10/31/17 Atorvastatin Calcium [Lipitor] 20 mg PO QHS 11/02/17 Current Medications Generic Name Dose Route Start Last Admin Trade Name Freq PRN Reason Stop Dose Admin Acetaminophen 1,000 mg 10/31/17 14:00 11/03/17 14:12 Tylenol PO 1,000 mg Q8 RADHA Administration Albuterol Sulfate 2.5 mg 10/31/17 13:12 Ventolin Aerosols INHALATION Q6H PRN PRN SHORTNESS OF BREATH Aspirin 325 mg 11/01/17 08:00 11/03/17 08:07 Aspirin PO 325 mg DAILY@0800 RADHA Administration Atorvastatin Calcium 20 mg 11/02/17 22:00 11/02/17 21:53 Lipitor PO 20 mg QHS RADHA Administration Benzonatate 100 mg 05/18/18 22:00 11/01/17 21:47 Tessalon Perle PO 100 mg QHS RADHA Administration Bisacodyl 10 mg 10/31/17 16:11 Dulcolax PO DAILY PRN Constipation Calamine/Phenol 1 applic 11/03/17 06:00 11/03/17 14:13 Calmoseptine Ointment TOPICAL 1 applicatio TID RADHA Administration Protocol Carvedilol 12.5 mg 10/31/17 18:00 11/03/17 04:53 Coreg PO 12.5 mg BID RADHA Administration Clotrimazole 1 applicatio 10/31/17 18:00 11/03/17 04:56 Lotrimin TOPICAL 1 applicatio BID RADHA Administration Protocol Dronedarone 400 mg 10/31/17 18:00 11/03/17 04:53 Multaq PO 400 mg BID RADHA Administration Furosemide 40 mg 11/02/17 06:00 11/03/17 06:18 Lasix IV 40 mg DAILY RADHA Administration Heparin Sodium (Beef Lung) 500 unit 11/01/17 04:24 11/03/17 06:25 Heparin 500 Unit/5 Ml (100/Ml) IV 500 unit UD PRN Administration HEPARIN FLUSH Levothyroxine Sodium 150 mcg 11/02/17 06:00 11/02/17 06:43 Synthroid PO 150 mcg Shepherd@0600 RADHA Administration Levothyroxine Sodium 75 mcg 10/31/17 17:00 11/03/17 04:53 Synthroid PO 75 mcg MoTuWeThFrSa@0600 RADHA Administration Lidocaine 1 patch 11/01/17 06:00 11/03/17 04:52 Lidoderm Patch TOPICAL 1 patch DAILY RADHA Administration Protocol Metoclopramide HCl 5 mg 10/31/17 22:00 11/02/17 21:53 Metoclopramide Hcl PO 5 mg QHS RADHA Administration Pantoprazole Sodium 20 mg 10/31/17 18:00 11/03/17 04:53 Protonix PO 20 mg BID RADHA Administration Polyethylene Glycol 17 gm 11/01/17 06:00 11/03/17 04:53 Miralax PO 17 gm DAILY RADHA Administration Polysaccharide Iron Complex 150 mg 11/02/17 08:00 11/03/17 08:07 Ferrex 150 PO 150 mg DAILYCM RADHA Administration Fluticasone/Salmeterol 1 puff 05/18/18 18:00 11/03/17 04:54 Advair 250/50 Mcg Diskus INHALATION 1 puff BID RADHA Administration Senna/Docusate Sodium 1 tablet 10/31/17 18:00 11/03/17 04:53 Senokot-S, Pinky-Colace PO 1 tablet BID RADHA Administration Sodium Chloride 10 ml 11/01/17 04:24 11/03/17 06:23 IV 10 ml UD PRN Administration R PORT FLUSH Tiotropium [place] 1 puff 11/01/17 06:00 11/03/17 04:54 Spiriva 18 Mcg INHALATION 1 puff DAILY RADHA Administration Tuberculin PPD 5 tu 11/08/17 10:00 Tubersol, Aplisol, Ppd ID 11/08/17 10:01 X1 ONE Venlafaxine HCl 150 mg 11/01/17 06:00 11/03/17 04:55 Effexor Xr PO 150 mg DAILY RADHA Administration Problem List (Last Reviewed 08/06/17 @ 15:23 by Joelle Vega) Fall (Acute) Left radial fracture (Acute) Knee laceration (Acute) Cellulitis (Acute) Acute on chronic kidney failure (Acute) Obesity (Chronic) Deep vein thrombosis (Chronic) Bronchiectasis (Chronic) Chronic systolic heart failure (Chronic) Coronary artery disease (Chronic) Myocardial infarction (Chronic) Diabetes mellitus (Chronic) Hypertension (Chronic) Hypothyroidism (Chronic) Nausea (Chronic) GERD (gastroesophageal reflux disease) (Chronic) Depression (Chronic) Vital Signs Temp Pulse Resp BP Pulse Ox 97.1 F L 63 18 121/72 H 96 11/03/17 15:30 11/03/17 15:30 11/03/17 15:30 11/03/17 15:30 11/03/17 15:30 Oxygen Flow Rate (L/min) 3 Oxygen Delivery Method Nasal Cannula Weight: 99.8 kg Body Mass Index (BMI) 35.1 Sodium 137 mmol/L (136-145) 11/03/17 10:43 Potassium 4.2 mmol/L (3.5-5.1) 11/03/17 10:43 Chloride 102 mmol/L (98-107) 11/03/17 10:43 Carbon Dioxide 29.0 mmol/L (21.0-32.0) 11/03/17 10:43 Anion Gap 6 (5-15) 11/03/17 10:43 BUN 31 mg/dL (7-18) H 11/03/17 10:43 Creatinine 1.45 mg/dL (0.70-1.30) H 11/03/17 10:43 Est GFR (MDRD) Af Amer 60 mL/min (>60) 11/03/17 10:43 Est GFR (MDRD) Non-Af 50 mL/min (>60) L 11/03/17 10:43 BUN/Creatinine Ratio 21.4 RATIO (10-20) H 11/03/17 10:43 Glucose 97 mg/dL (74-106) 11/03/17 10:43 Assessment/Plan: Psychotropic Medications: Unnecessary Medications: Bowel Regimen: - Provider Comments Provider responsibility: Provider responsible to enter orders to implement recommendations Provider Comments to Recommendations by Pharmacy: Agree
[2017-11-03 15:30] VITALS: BP 121/72; PULSE 63; RESP 18; TEMP 36.2; O2SAT 96
--- NOTE | 2017-11-03 17:17 | NURSING ---
Pt and requesting Reglan be stopped as this is not a med the pt takes at home, Dr. Parker updated and med discontinued.
--- NOTE | 2017-11-03 17:29 | NURSING ---
Dr. Parker reviewed labs, NNO
[2017-11-03 21:30] VITALS: PULSE 64; RESP 16; O2SAT 97
[2017-11-03] MEDS: Benzonatate 100 MG Capsule PO (21:32)
[2017-11-03] MEDS: Atorvastatin Calcium 20 MG Tablet PO (21:32)
[2017-11-04] MEDS: Pantoprazole Sodium 20 MG Tablet PO ×2 (05:27→17:19)
[2017-11-04] MEDS: Carvedilol 12.5 MG Tablet PO ×2 (05:27→17:19)
[2017-11-04] MEDS: Senna/Docusate Sodium 1 Tablet PO (05:27)
[2017-11-04] MEDS: Venlafaxine XR 150 MG Capsule PO (05:27)
[2017-11-04] MEDS: Acetaminophen 500 MG Tablet 1000 MG PO ×3 (05:27→21:07)
[2017-11-04] MEDS: Menthol/Lanolin/Calamine/Znox 113 GM Tube 1 APPLIC TOPICAL ×3 (05:27→21:07)
[2017-11-04] MEDS: Levothyroxine 75 MCG Tablet PO (05:27)
[2017-11-04] MEDS: Lidocaine 5% Patch 1 PATCH TOPICAL (05:30)
[2017-11-04] MEDS: Furosemide 40 MG/4 ML Vial IV (05:54)
[2017-11-04 06:45] LABS: Bedside Glucose 89 mg/dL (70-110)
[2017-11-04 06:55] VITALS: O2SAT 92
--- NOTE | 2017-11-04 09:01 | NURSING ---
NEW ORDER TO REMOVE SUTURES ON 11/07/17 FROM [facility]NEES
[2017-11-04] MEDS: Aspirin 325 MG Tablet PO (09:16)
[2017-11-04] MEDS: Iron Polysaccharide Complex 150 MG CAPSULE PO (09:16)
--- NOTE | 2017-11-04 10:07 | CASEMGMT ---
Plan of care meeting held. Resident present as well as resident spouse. No discharge date at this time. Resident plans to discharge home with spouse at time of discharge. Resident to continue with further care and treatment on the Transitional Care Unit. Support given. Will continue to follow. Carlene FALCON, COOL ROOFING INSTALLER
--- NOTE | 2017-11-04 11:43 | NURSING ---
Addendum entered by Zoe Ahuja 11/04/17 11:53: also pt uses vest therapy at home, new order entered. CPS notified. Original Note: dr Parker notified of pt reporting that pt is to be on pravastatin 20mg not lipitor per DR Umana. Pt requesting regular diet. orders received.
--- NOTE | 2017-11-04 12:18 | CHAPLAIN ---
Type of Pastoral Visit ___ Initial Visit _x__ Follow-up Visit ___ On-call Visit ___ General Patient Visit ___ Spiritual Assessment ___ Family Conference ___ Bereavement ___ Rapid Response ___ Code Blue ___ Other (describe below) Pastoral Care Referral From _x__ Patient ___ Family ___ Nurse ___ Physician ___ Office Employee ___ Bb Shot Packer ___ Other (describe below) Sacrament/Intervention _x__ Active listening ___ Anointing ___ Hindu ___ Bereavement ___ Communion _x__ Wendy exploration ___ _x__ Life review _x__ Prayer ___ Reconciliation ___ Sacrament of Sick _x__ Supportive presence ___ Wedding ___ Other (describe below) Pastoral Comments
[2017-11-04 15:41] VITALS: BP 117/64; PULSE 61; RESP 18; TEMP 36.1; O2SAT 96
[2017-11-04] MEDS: Benzonatate 100 MG Capsule PO (21:07)
[2017-11-04] MEDS: Pravastatin 20 MG Tablet PO (21:07)
[2017-11-04 21:12] VITALS: PULSE 68; RESP 18; O2SAT 92
[2017-11-05] MEDS: Furosemide 40 MG/4 ML Vial IV (06:17)
[2017-11-05 06:25] VITALS: O2SAT 92
[2017-11-05] MEDS: Carvedilol 12.5 MG Tablet PO (06:40)
[2017-11-05] MEDS: Menthol/Lanolin/Calamine/Znox 113 GM Tube 1 APPLIC TOPICAL ×3 (06:40→20:48)
[2017-11-05] MEDS: Venlafaxine XR 150 MG Capsule PO (06:40)
[2017-11-05 06:41] LABS: Bedside Glucose 92 mg/dL (70-110)
[2017-11-05] MEDS: Pantoprazole Sodium 20 MG Tablet PO ×2 (06:42→18:05)
[2017-11-05] MEDS: Levothyroxine 75 MCG Tablet PO (06:43)
[2017-11-05] MEDS: Acetaminophen 500 MG Tablet 1000 MG PO ×3 (06:43→20:44)
[2017-11-05] MEDS: Lidocaine 5% Patch 1 PATCH TOPICAL (08:11)
[2017-11-05] MEDS: Aspirin 325 MG Tablet PO (08:13)
[2017-11-05] MEDS: Iron Polysaccharide Complex 150 MG CAPSULE PO (08:13)
[2017-11-05 10:00] VITALS: PULSE 60; RESP 18; O2SAT 99
--- NOTE | 2017-11-05 15:03 | NURSING ---
Pt returned from appt with Dr. Obando, f/u and pacer check scheduled for 11/11/17 at 1330, ECHO and doppler scheduled for 11/19/17 at 1300. NO for midodrine 5mg PO TID, decrease IV lasix to 20mg daily, decrease coreg to 6.25mg BID and office to call to schedule ICD evaluation.
[2017-11-05 15:43] VITALS: BP 112/68; PULSE 60; RESP 16; TEMP 36.7; O2SAT 99
[2017-11-05] MEDS: Carvedilol 6.25 MG Tablet PO (18:05)
--- NOTE | 2017-11-05 18:52 | NURSING ---
NO for deirdre BId per patient request.
[2017-11-05] MEDS: Benzonatate 100 MG Capsule PO (20:43)
[2017-11-05] MEDS: Pravastatin 20 MG Tablet PO (20:43)
[2017-11-05] MEDS: Midodrine HCl 5 MG Tablet PO (22:21)
--- NOTE | 2017-11-05 23:07 | NURSING ---
while giving hs medication, this nurse was told by BASEBALL SEWER HAND that pt had requested ice cream and BASEBALL SEWER HAND checked I/O sheet for reference. BASEBALL SEWER HAND noted that the pt received the maximum amount of fluid he could receive for the day. This nurse gave hs pills and talked to pt about the 1500 fluid restriction that he is on- pt has 750 from dietary and 750 from nursing. while explaining the fluid restriction, pt became upset with nurse and stated this is bullst. this nurse reassured pt that we are monitoring his fluid intake d/t increases in his weight. this nurse removed water pitcher from bedside table. pt verbalized understanding, but still upset.
[2017-11-06] MEDS: Menthol/Lanolin/Calamine/Znox 113 GM Tube 1 APPLIC TOPICAL ×3 (05:02→20:26)
[2017-11-06] MEDS: Venlafaxine XR 150 MG Capsule PO (05:03)
[2017-11-06] MEDS: Lidocaine 5% Patch 1 PATCH TOPICAL (05:04)
[2017-11-06] MEDS: Midodrine HCl 5 MG Tablet PO ×3 (05:09→20:31)
[2017-11-06] MEDS: Levothyroxine 75 MCG Tablet PO (05:10)
[2017-11-06] MEDS: Pantoprazole Sodium 20 MG Tablet PO ×2 (05:10→17:07)
[2017-11-06] MEDS: Acetaminophen 500 MG Tablet 1000 MG PO ×2 (05:11→13:09)
[2017-11-06 06:30] VITALS: O2SAT 94
[2017-11-06] MEDS: Carvedilol 6.25 MG Tablet PO ×2 (07:04→17:07)
[2017-11-06] MEDS: Furosemide 20 MG/2 ML VIAL IV (07:18)
[2017-11-06 08:21] LABS: Bedside Glucose 81 mg/dL (70-110)
[2017-11-06] MEDS: Aspirin 325 MG Tablet PO (08:33)
[2017-11-06] MEDS: Iron Polysaccharide Complex 150 MG CAPSULE PO (08:33)
[2017-11-06 10:00] VITALS: PULSE 60; RESP 18; O2SAT 97
[2017-11-06 15:46] VITALS: BP 100/57; PULSE 55; RESP 18; TEMP 36.8; O2SAT 98
[2017-11-06] MEDS: Pravastatin 20 MG Tablet PO (20:29)
[2017-11-06] MEDS: Benzonatate 100 MG Capsule PO (20:30)
[2017-11-07] MEDS: Menthol/Lanolin/Calamine/Znox 113 GM Tube 1 APPLIC TOPICAL ×3 (05:04→22:20)
[2017-11-07] MEDS: Levothyroxine 75 MCG Tablet PO (05:06)
[2017-11-07] MEDS: Lidocaine 5% Patch 1 PATCH TOPICAL (05:06)
[2017-11-07] MEDS: Venlafaxine XR 150 MG Capsule PO (05:06)
[2017-11-07] MEDS: Carvedilol 6.25 MG Tablet PO ×2 (05:06→17:51)
[2017-11-07] MEDS: Pantoprazole Sodium 20 MG Tablet PO ×2 (05:06→17:51)
[2017-11-07] MEDS: Midodrine HCl 5 MG Tablet PO ×3 (05:06→22:20)
[2017-11-07] MEDS: Senna/Docusate Sodium 1 Tablet PO (05:08)
[2017-11-07] MEDS: Furosemide 20 MG/2 ML VIAL IV (05:30)
[2017-11-07 06:41] LABS: Bedside Glucose 77 mg/dL (70-110)
[2017-11-07] MEDS: Aspirin 325 MG Tablet PO (07:52)
[2017-11-07] MEDS: Iron Polysaccharide Complex 150 MG CAPSULE PO (07:52)
--- NOTE | 2017-11-07 08:34 | CPS ---
patient sleeping at this time, PEP therapy not done
[2017-11-07 13:25] VITALS: O2SAT 97
[2017-11-07] MEDS: Acetaminophen 500 MG Tablet 1000 MG PO ×2 (13:25→22:19)
--- NOTE | 2017-11-07 13:44 | CPS ---
PEP THERAPY DONE ON OWN
--- NOTE | 2017-11-07 14:17 | CASEMGMT ---
Brief interview for mental status (BIMS) and resident mood interview completed on this day. BIMS score 15/15. PHQ-9 score 08/12.
[2017-11-07 15:13] VITALS: BP 107/54; PULSE 60; RESP 18; TEMP 36.4; O2SAT 96
[2017-11-07] MEDS: Benzonatate 100 MG Capsule PO (22:18)
[2017-11-07] MEDS: Pravastatin 20 MG Tablet PO (22:20)
[2017-11-08] MEDS: Menthol/Lanolin/Calamine/Znox 113 GM Tube 1 APPLIC TOPICAL ×3 (05:13→20:51)
[2017-11-08] MEDS: Midodrine HCl 5 MG Tablet PO ×3 (05:18→20:43)
[2017-11-08] MEDS: Lidocaine 5% Patch 1 PATCH TOPICAL (05:18)
[2017-11-08] MEDS: Levothyroxine 75 MCG Tablet PO (05:20)
[2017-11-08] MEDS: Senna/Docusate Sodium 1 Tablet PO ×2 (05:20→17:09)
[2017-11-08] MEDS: Pantoprazole Sodium 20 MG Tablet PO ×2 (05:20→17:09)
[2017-11-08] MEDS: Venlafaxine XR 150 MG Capsule PO (05:20)
[2017-11-08] MEDS: Acetaminophen 500 MG Tablet 1000 MG PO ×3 (05:20→20:43)
[2017-11-08] MEDS: Carvedilol 6.25 MG Tablet PO ×2 (05:31→17:09)
[2017-11-08] MEDS: Furosemide 20 MG/2 ML VIAL IV (05:51)
[2017-11-08 06:15] LABS: Absolute Lymphocyte Count 2.55 X10^3/ul (0.83-4.51); Basophil# 0.02 X10^3/uL; Basophil% 0.2 % (0-1); Eosinophil# 0.42 X10^3/uL; Eosinophils% 4.6 % (0-5); Hematocrit 28.9 % (40-54); Hemoglobin 9.2 g/dl (13.0-16.5); Lymphocyte # 2.55 X10^3/ul (4.0); Lymphocyte % 28.1 % (19-41); Mean Corp Hgb Conc 31.8 g/gl (32-36); Mean Corpuscular Hgb 28.1 pg (27.0-32.0); Mean Corpuscular Volume 88.4 fL (80-94); Mean Platelet Vol. 9.7 fl (6.2-12.0); Monocyte% 12.1 % (0-10); Neutrophil # 4.95 X10^3/uL (2.7-7.7); Neutrophil % 54.7 % (47-70); Platelet Count 288 K/mm3 (150-450); RBC Distribution Width CV 17.2 % (11.6-14.6); RBC Distribution Width SD 53.6 fl (35.1-43.9); Red Blood Count 3.27 M/mm3 (4.6-6.2); White Blood Count 9.1 K/mm3 (4.4-11.0)
[2017-11-08 06:21] LABS: POSITIVE COUNT NO; POSITIVE DIFFERENTIAL NO; POSITIVE MORPHOLOGY NO
[2017-11-08 06:42] LABS: Anion Gap 4 (5-15); BUN 51 mg/dL (7-18); BUN/Creat Ratio 34.7 RATIO (10-20); Calcium,Total 7.9 mg/dL (8.5-10.1); Chloride 101 mmol/L (98-107); Creatinine, Serum 1.47 mg/dL (0.70-1.30); EST Glomerular Filtration Rate 49 mL/min (>60); Est Glom Filt Rate - Afr Amer 59 mL/min (>60); Estimated Creatinine Clearance 36.17 ml/min; Glucose 74 mg/dL (74-106); Potassium 3.5 mmol/L (3.5-5.1); Sodium Level 136 mmol/L (136-145)
[2017-11-08 07:00] VITALS: RESP 18; O2SAT 98
[2017-11-08 07:01] LABS: Bedside Glucose 84 mg/dL (70-110)
[2017-11-08] MEDS: Iron Polysaccharide Complex 150 MG CAPSULE PO (08:43)
[2017-11-08] MEDS: Aspirin 325 MG Tablet PO (08:43)
[2017-11-08] MEDS: Tuberculin,Purif.prot.deriv. 50 TU/ML Vial 5 ML ID (11:05)
[2017-11-08 15:19] VITALS: BP 105/52; PULSE 60; RESP 18; TEMP 36; O2SAT 97
[2017-11-08] MEDS: Fluticasone/Salmeterol 232-14 Inhaler 1 PUFF IH (17:08)
[2017-11-08] MEDS: Pravastatin 20 MG Tablet PO (20:42)
[2017-11-08] MEDS: Benzonatate 100 MG Capsule PO (20:43)
[2017-11-09] MEDS: Midodrine HCl 5 MG Tablet PO ×3 (06:10→20:51)
[2017-11-09] MEDS: Acetaminophen 500 MG Tablet 1000 MG PO ×3 (06:10→20:52)
[2017-11-09] MEDS: Carvedilol 6.25 MG Tablet PO (06:10)
[2017-11-09] MEDS: Venlafaxine XR 150 MG Capsule PO (06:10)
[2017-11-09] MEDS: Senna/Docusate Sodium 1 Tablet PO ×2 (06:10→17:10)
[2017-11-09] MEDS: Pantoprazole Sodium 20 MG Tablet PO ×2 (06:10→17:10)
[2017-11-09] MEDS: Fluticasone/Salmeterol 232-14 Inhaler 1 PUFF IH ×2 (06:10→17:09)
[2017-11-09] MEDS: Lidocaine 5% Patch 1 PATCH TOPICAL (06:12)
[2017-11-09] MEDS: Polyethylene Glycol 3350 17 GM PACKET PO (06:13)
[2017-11-09] MEDS: Furosemide 20 MG/2 ML VIAL IV (06:13)
[2017-11-09] MEDS: Levothyroxine 150 MCG Tablet PO (06:14)
[2017-11-09] MEDS: Menthol/Lanolin/Calamine/Znox 113 GM Tube 1 APPLIC TOPICAL ×3 (06:22→20:50)
[2017-11-09 06:51] LABS: Bedside Glucose 92 mg/dL (70-110)
[2017-11-09 08:25] VITALS: O2SAT 95
[2017-11-09] MEDS: Iron Polysaccharide Complex 150 MG CAPSULE PO (08:37)
[2017-11-09] MEDS: Aspirin 325 MG Tablet PO (08:37)
[2017-11-09 09:46] VITALS: O2SAT 96
[2017-11-09 15:06] VITALS: BP 98/61; PULSE 60; RESP 20; TEMP 36; O2SAT 98
[2017-11-09] MEDS: Pravastatin 20 MG Tablet PO (20:50)
[2017-11-09] MEDS: Benzonatate 100 MG Capsule PO (20:51)
[2017-11-10] MEDS: Menthol/Lanolin/Calamine/Znox 113 GM Tube 1 APPLIC TOPICAL ×3 (06:04→20:53)
[2017-11-10] MEDS: Venlafaxine XR 150 MG Capsule PO (06:04)
[2017-11-10] MEDS: Carvedilol 6.25 MG Tablet PO ×2 (06:04→17:24)
[2017-11-10] MEDS: Lidocaine 5% Patch 1 PATCH TOPICAL (06:05)
[2017-11-10] MEDS: Fluticasone/Salmeterol 232-14 Inhaler 1 PUFF IH ×2 (06:05→17:37)
[2017-11-10] MEDS: Midodrine HCl 5 MG Tablet PO ×3 (06:06→20:53)
[2017-11-10] MEDS: Pantoprazole Sodium 20 MG Tablet PO ×2 (06:06→17:25)
[2017-11-10] MEDS: Polyethylene Glycol 3350 17 GM PACKET PO (06:06)
[2017-11-10] MEDS: Senna/Docusate Sodium 1 Tablet PO ×2 (06:07→17:24)
[2017-11-10] MEDS: Levothyroxine 75 MCG Tablet PO (06:07)
[2017-11-10] MEDS: Acetaminophen 500 MG Tablet 1000 MG PO ×3 (06:07→20:52)
[2017-11-10] MEDS: Furosemide 20 MG/2 ML VIAL IV (06:09)
[2017-11-10 06:55] VITALS: O2SAT 98
[2017-11-10 06:56] LABS: Bedside Glucose 90 mg/dL (70-110)
--- NOTE | 2017-11-10 07:03 | NURSING ---
Dressings to bilateral knees changed during night and again in morning. Left kerlex had quarter sized blood stain on outside but no visible drainage when removed and cleaned. Pt tolerated well, denied any pain or discomfort. RN aware, continuing to monitor.
[2017-11-10] MEDS: Aspirin 325 MG Tablet PO (07:39)
[2017-11-10] MEDS: Iron Polysaccharide Complex 150 MG CAPSULE PO (07:40)
[2017-11-10 15:13] VITALS: O2SAT 96
--- NOTE | 2017-11-10 15:14 | NURSING ---
Sutures removed from rt knee as per order, pt tolerated well, minimal bleeding noted, some redness toribio-wound, scabbed. Sutures not removed from left knee d/t moderate drainage. Wound bed yellow/red in color and not well approximated with toribio-wound redness. Will consult wound nurse to assess.
[2017-11-10 15:21] VITALS: BP 104/53; PULSE 68; RESP 18; TEMP 36.1; O2SAT 96
[2017-11-10] MEDS: Benzonatate 100 MG Capsule PO (20:52)
[2017-11-10] MEDS: Pravastatin 20 MG Tablet PO (20:53)
[2017-11-11] VITALS (7 sets, daily range): BP systolic 92–106; BP diastolic 52–59; PULSE 55–62; RESP 16–18; TEMP 36.3; O2SAT 92–97
[2017-11-11] MEDS: Fluticasone/Salmeterol 232-14 Inhaler 1 PUFF IH ×2 (06:35→17:53)
[2017-11-11] MEDS: Menthol/Lanolin/Calamine/Znox 113 GM Tube 1 APPLIC TOPICAL ×3 (06:35→20:59)
[2017-11-11] MEDS: Acetaminophen 500 MG Tablet 1000 MG PO ×3 (06:36→20:59)
[2017-11-11] MEDS: Carvedilol 6.25 MG Tablet PO (06:36)
[2017-11-11] MEDS: Senna/Docusate Sodium 1 Tablet PO ×2 (06:36→17:50)
[2017-11-11] MEDS: Midodrine HCl 5 MG Tablet PO ×3 (06:36→20:59)
[2017-11-11] MEDS: Pantoprazole Sodium 20 MG Tablet PO ×2 (06:36→17:50)
[2017-11-11] MEDS: Levothyroxine 75 MCG Tablet PO (06:36)
[2017-11-11] MEDS: Venlafaxine XR 150 MG Capsule PO (06:36)
[2017-11-11 06:40] LABS: Bedside Glucose 85 mg/dL (70-110)
[2017-11-11] MEDS: Furosemide 20 MG/2 ML VIAL IV (06:40)
[2017-11-11] MEDS: Polyethylene Glycol 3350 17 GM PACKET PO (06:44)
[2017-11-11] MEDS: Lidocaine 5% Patch 1 PATCH TOPICAL (08:37)
[2017-11-11] MEDS: Iron Polysaccharide Complex 150 MG CAPSULE PO (08:42)
[2017-11-11] MEDS: Aspirin 325 MG Tablet PO (08:42)
--- NOTE | 2017-11-11 08:55 | NURSING ---
Addendum entered by Zoe Ahuja 11/11/17 11:45: DR PATEL NOTIFIED, NEW ORDER FOR IVF 500CC NS BOLUS X1, CHANGE IV LASIX TO PO, REACCESSED RT CHEST PORT. ELEVATED BUN/CR NOTED THIS AM. Original Note: PT IN RECLINER AFTER SHOWER. CHRIS,WOUND NURSE IN ROOM. PT COMPLAINED OF DIZZINESS,WEAKNESS. THERAPY ALSO IN ROOM TO CONFIRM PT COMPLAINTS. PT ALSO STATED THAT HE HAS NO DESIRE TO EAT,STATED STEVIE JUST NOT HUNGRY. PT BP RT ARM-92/52,HR 62. LEFT ARM 93/42,HR 65. O2 92% 3L. REPORTED TO JONATAN GALAN
--- NOTE | 2017-11-11 09:29 | NURSING ---
wound photo: left knee
--- NOTE | 2017-11-11 09:29 | NURSING ---
wound photo: right knee
--- NOTE | 2017-11-11 09:30 | NURSING ---
wound photo: right inner forearm
--- NOTE | 2017-11-11 10:39 | NURSING ---
THIS NURSE CALLED TO PT ROOM. PT COUGHING AND BRINGING UP THICK YELLOW SPUTUM AND FEELING SHORT OF BREATH. CALLED FOR BREATHING TREATMENT. REPORTED TO JONATAN GALAN
[2017-11-11] MEDS: Albuterol 2.5 MG/3 ML VIAL.NEB. INHALATION (11:25)
[2017-11-11] MEDS: Bisacodyl 5 MG Tablet 10 MG PO (14:30)
--- NOTE | 2017-11-11 17:55 | NURSING ---
Addendum entered by Zoe Ahuaj 11/11/17 18:51: XLARGE DARK SOFT FORMED STOOL IN BSC Original Note: Addendum entered by Zoe Ahuja 11/11/17 17:56: PT HAS HAD 2 SMALL BM'S LAST 2 DAYS, NEW ORDER FOR SOAP SUDS ENEMA X1` Original Note: LOW BP TONIGHT 103/57 HR 61, COREG HELD TONIGHT PER DR PATEL ORDER.
[2017-11-11] MEDS: Pravastatin 20 MG Tablet PO (20:59)
[2017-11-11] MEDS: Benzonatate 100 MG Capsule PO (20:59)
[2017-11-12] VITALS (8 sets, daily range): BP systolic 84–111; BP diastolic 45–59; PULSE 58–78; RESP 18–20; TEMP 36.1–36.4; O2SAT 94–97
--- NOTE | 2017-11-12 00:52 | NURSING ---
Spouse called into nurses' station 11-11-17 at 2100. Pt's feels pt nausea and dizziness began when pt started taking Midodrine. Spouse requesting to speak with Dr Parker. Will update Dr Parker.
[2017-11-12] MEDS: Lidocaine 5% Patch 1 PATCH TOPICAL (05:39)
[2017-11-12] MEDS: Fluticasone/Salmeterol 232-14 Inhaler 1 PUFF IH ×2 (05:40→17:46)
[2017-11-12] MEDS: Pantoprazole Sodium 20 MG Tablet PO ×2 (05:43→17:52)
[2017-11-12] MEDS: Venlafaxine XR 150 MG Capsule PO (05:43)
[2017-11-12] MEDS: Acetaminophen 500 MG Tablet 1000 MG PO ×2 (05:43→14:01)
[2017-11-12] MEDS: Senna/Docusate Sodium 1 Tablet PO ×2 (05:43→17:52)
[2017-11-12] MEDS: Levothyroxine 75 MCG Tablet PO (05:43)
[2017-11-12] MEDS: Furosemide 20 MG Tablet PO (05:43)
[2017-11-12] MEDS: Menthol/Lanolin/Calamine/Znox 113 GM Tube 1 APPLIC TOPICAL ×3 (05:48→20:21)
[2017-11-12] MEDS: Polyethylene Glycol 3350 17 GM PACKET PO (05:50)
--- NOTE | 2017-11-12 05:52 | NURSING ---
Pt refused Midodrine this AM B/P 106/[address] Parker.
[2017-11-12 06:41] LABS: Bedside Glucose 83 mg/dL (70-110)
--- NOTE | 2017-11-12 08:07 | NURSING ---
blood sugars every morning have been all WNL's, new order to d/c AM accuchecks.
--- NOTE | 2017-11-12 08:26 | RAD_ITS ---
STUDY: X-RAY CHEST REASON FOR EXAM: Male, 82 years old. Cough. TECHNIQUE: PA and lateral views of the chest. COMPARISON: Comparison is made with prior study of October 29, 2017. FINDINGS: There is elevation of the right hemidiaphragm. Progressive bibasilar infiltrates. Blunting of both costophrenic angles. 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 Normal mediastinum and zhao. Normal visualized pulmonary arteries. There is atherosclerotic calcification of the aortic arch with tortuosity. There are diffuse degenerative changes of the visualized thoracic spine. Normal visualized ribs, clavicles, and shoulders. There is no demonstrated abnormality of the visualized soft tissue structures of the upper abdomen. RAD/Chest PA and Lateral IMPRESSION: Elevation of the right hemidiaphragm with progressive infiltrates at the lung bases. Blunting of both costophrenic angles. Electronically Signed: Zi Rahman MD at 9:38 EDT Tel [phone], Service support ,
--- NOTE | 2017-11-12 08:26 | RAD_ITS ---
STUDY: X-RAY - ABDOMEN/PELVIS REASON FOR EXAM: Male, 82 years old. Constipation. TECHNIQUE: AP supine and upright views of the abdomen and pelvis. COMPARISON: None. FINDINGS: There is an unremarkable bowel gas pattern. There is no demonstrated free abdominal air. Surgical clips are seen in the mid pelvis most likely secondary to prior prostatectomy. Vascular calcification. There are diffuse degenerative changes of the visualized lumbar spine. RAD/Abdomen Single View IMPRESSION: Unremarkable bowel gas pattern. Electronically Signed: Zi Rahman MD at 9:37 EDT Tel [phone], Service support ,
--- NOTE | 2017-11-12 08:31 | NURSING ---
THIS NURSE WENT INTO PT ROOM AND FOUND PT IN BED SPITTING UP THICK YELLOW SPUTUM. ASKED PT WHAT WAS WRONG, PT STATED I JUST DONT FEEL GOOD. STEVIE WEAK,DIZZY AND MY CHEST HURTS. AND I DONT FEEL LIKE EATING,STEVIE JUST NOT HUNGRY. REPORTED TO JONATAN GALAN. JONATAN GALAN CAME TO ROOM,AND CALLED .
--- NOTE | 2017-11-12 08:33 | NURSING ---
Addendum entered by Zoe Ahuja 11/12/17 11:37: dr parker updated on both xrays. No new orders continue PO ATB's for now. chest vest therapy started and routine duoneb treatments. Original Note: pt c/o nausea/lightheadedness when he sits up, not able to eat. PT states i dont want to feel like this again today, I want to go see my therapy so I can pick on them Pt coughing up thick yellow sputum, lungs with crackles t/o post with expiration. Dr Parker notified, new order for CXR, KUB, labs, start Doxy & Cefdinir x7days, UA via st cath, 500cc bolus NS x1 then deaccess port and start vest therapy and aerosals as home regimen.
--- NOTE | 2017-11-12 08:38 | NURSING ---
pt off unit to xray via
[2017-11-12 09:35] LABS: Bacteria 0 SEEN /hpf (None Seen); Mucous, Urine 0 SEEN /hpf (<or=2+); Red Blood Cells-Urine 0 SEEN /hpf (0-5); White Blood Cells 0 SEEN /hpf (0-5)
[2017-11-12 09:36] LABS: Color, Urine Yellow (Yellow); Glucose, Dipstick Normal (Normal); Ketone-Dipstick Negative (Negative); Leukocyte Esterase-Dipstick Negative /ul (Negative); Nitrite-Dipstick Negative (Negative); Occult Blood-Urine Negative /ul (Negative); Protein-Dipstick Negative (Negative); Urine Bilirubin Dipstick Negative (Negative); Urine Clarity Clear (Clear); Urine Urobilinogen Normal (Normal)
[2017-11-12 09:43] LABS: Absolute Lymphocyte Count 1.59 X10^3/ul (0.83-4.51); Absolute Neutrophil Count 14.2 X10^3/uL (2.0-7.7); Basophil# 0.01 X10^3/uL; Basophil% 0.1 % (0-1); Eosinophil# 0.12 X10^3/uL; Eosinophils% 0.7 % (0-5); Hematocrit 33.7 % (40-54); Hemoglobin 10.8 g/dl (13.0-16.5); Lymphocyte # 1.59 X10^3/ul (4.0); Lymphocyte % 9.2 % (19-41); Mean Corpuscular Hgb 28.1 pg (27.0-32.0); Mean Corpuscular Volume 87.5 fL (80-94); Mean Platelet Vol. 9.8 fl (6.2-12.0); Monocyte# 1.38 X10^3/uL; Neutrophil # 14.15 X10^3/uL (2.7-7.7); Neutrophil % 81.7 % (47-70); Platelet Count 306 K/mm3 (150-450); RBC Distribution Width CV 17.6 % (11.6-14.6); RBC Distribution Width SD 56.3 fl (35.1-43.9); Red Blood Count 3.85 M/mm3 (4.6-6.2); White Blood Count 17.3 K/mm3 (4.4-11.0)
[2017-11-12 09:50] LABS: POSITIVE COUNT NO; POSITIVE DIFFERENTIAL NO; POSITIVE MORPHOLOGY NO
[2017-11-12 09:55] LABS: Squamous Epithelial Cells - UA 0-5 SEEN /hpf (0-5)
[2017-11-12 10:05] LABS: Anion Gap 9 (5-15); BUN 73 mg/dL (7-18); BUN/Creat Ratio 45.6 RATIO (10-20); Calcium,Total 8.1 mg/dL (8.5-10.1); Chloride 101 mmol/L (98-107); EST Glomerular Filtration Rate 44 mL/min (>60); Est Glom Filt Rate - Afr Amer 54 mL/min (>60); Estimated Creatinine Clearance 33.23 ml/min; Glucose 89 mg/dL (74-106); Potassium 3.3 mmol/L (3.5-5.1); Sodium Level 141 mmol/L (136-145)
[2017-11-12] MEDS: Cefdinir 300 MG Capsule PO ×2 (10:13→17:51)
[2017-11-12] MEDS: Doxycycline 100 MG CAPSULE PO ×2 (10:13→17:48)
--- NOTE | 2017-11-12 11:10 | NURSING ---
Skin tear dressings had been changed by CHESTER Voss this am.
[2017-11-12] MEDS: Ipratropium/Albuterol Sulfate 3 ML AMPUL.NEB INHALATION ×2 (11:16→19:12)
[2017-11-12] MEDS: Midodrine HCl 5 MG Tablet PO (14:01)
--- NOTE | 2017-11-12 14:17 | NURSING ---
Addendum entered by Zoe Ahuja 11/12/17 18:07: updated on all orders, Dr Parker spoke with pt and as well. Original Note: dr parker aware of labs, new order for x1 kdur and recheck bmp in am
[2017-11-12] MEDS: Ondansetron ODT 4 MG Tablet PO (20:18)
--- NOTE | 2017-11-12 20:27 | NURSING ---
After breathing tx pt started coughing/gagging, producing small amount liquid emesis. Stated he had not eaten today. When this nurse told him potassium taken earlier needed to be taken with food, he said I did eat I had one bite of fish. I do not have an appetite Educated pt on nutritional importance, and offered other suggestions. Pt interrupted and said I know you're trying to be nice but food is not on my radar. Encouraged pt to ask for snack later if he feels hungry or that he can keep something down. Agreeable to this. RN aware, notified Dr. Parker who gave orders for PRN zofran 4mg, which was given, along with josephine stefani pt is sipping on. Pt refused all other hs medications, while present. Continuing to monitor.
[2017-11-13] MEDS: Menthol/Lanolin/Calamine/Znox 113 GM Tube 1 APPLIC TOPICAL ×3 (05:12→21:30)
[2017-11-13] MEDS: Furosemide 20 MG Tablet PO (05:13)
[2017-11-13] MEDS: Fluticasone/Salmeterol 232-14 Inhaler 1 PUFF IH ×2 (05:13→17:33)
[2017-11-13] MEDS: Pantoprazole Sodium 20 MG Tablet PO ×2 (05:13→17:36)
[2017-11-13] MEDS: Cefdinir 300 MG Capsule PO ×2 (05:14→17:34)
[2017-11-13] MEDS: Doxycycline 100 MG CAPSULE PO ×2 (05:14→17:33)
[2017-11-13] MEDS: Lidocaine 5% Patch 1 PATCH TOPICAL ×2 (05:14→09:53)
[2017-11-13] MEDS: Venlafaxine XR 150 MG Capsule PO (05:15)
[2017-11-13] MEDS: Levothyroxine 75 MCG Tablet PO (05:15)
[2017-11-13 06:23] LABS: Anion Gap 8 (5-15); BUN 62 mg/dL (7-18); BUN/Creat Ratio 38.8 RATIO (10-20); Calcium,Total 7.7 mg/dL (8.5-10.1); Chloride 101 mmol/L (98-107); EST Glomerular Filtration Rate 44 mL/min (>60); Est Glom Filt Rate - Afr Amer 54 mL/min (>60); Estimated Creatinine Clearance 33.23 ml/min; Glucose 81 mg/dL (74-106); Potassium 3.1 mmol/L (3.5-5.1); Sodium Level 139 mmol/L (136-145)
--- NOTE | 2017-11-13 07:01 | NURSING ---
No further emesis following zofran 4mg administration, pt did use call light early this morning and yelled he 'needed to go to bathroom conner' This nurse and two credentials specialist went into room and assisted onto BSC, where pt was incont. of large liquid foul smelling bm. Required linen change, washed up, and floors wiped down. Pt was agitated during this time d/t not feeling well. Lab came in and wanted to do intravenous draw which caused pt to become more upset. Lab left to come back later. Once pt was cleaned up and back into bed, both dressings were changed on bilateral knees again during this shift. DILAN wraps applied over bandages. Pt encouraged to try to eat even if he does not feel very hungry. Agreeable to this. Call light within reach, continuing to monitor. RN aware.
[2017-11-13] MEDS: Ondansetron ODT 4 MG Tablet PO (08:06)
[2017-11-13] MEDS: Aspirin 325 MG Tablet PO (09:19)
[2017-11-13] MEDS: Iron Polysaccharide Complex 150 MG CAPSULE PO (09:19)
--- NOTE | 2017-11-13 09:23 | NURSING ---
BMP results reviewed by REED Cardenas to give x1 dose of 60mEq of potassium and then 20mEq daily. Recheck BMP tomorrow and friday.
[2017-11-13 10:00] VITALS: PULSE 87; RESP 18; O2SAT 94
--- NOTE | 2017-11-13 10:07 | NURSING ---
Pt requested lidoderm be put on, this nurse checked AUG, AUG stating that patch was placed at 5am this day. Patch not located on Patients knee, Pt unsure if patch was placed, or where patch could be at this time. This nurse replaced Patch to Pt knee dated and initialed. Pt sitting up in chair call light in reach. Miya CHEUNG notified
[2017-11-13] MEDS: Ipratropium/Albuterol Sulfate 3 ML AMPUL.NEB INHALATION (10:43)
[2017-11-13 10:47] VITALS: PULSE 75; RESP 16; O2SAT 98
--- NOTE | 2017-11-13 13:37 | NURSING ---
Addendum entered by Monica Cooley 11/13/17 16:20: Dr phillips aware and orders to decrease Coreg to 3.125mg BID. Also added Tobramycin inhalers to help with breathing. Original Note: It was reported to this nurse that Pt is having dizzy spells, Therapy reported Pt blood pressure while sitting was 108/62 and as soon as Pt stood up Pt Blood pressure drop to 86/54. This nurse noted that Pt hasn't been taking the midodrine which is to help with orthostatic Hypotension, This nurse talked with Pt and explained the purpose of medication, Pt voiced understanding and asked this nurse to contact Pt and explain medication. This nurse Spoke to Pt and very understanding and concerned about Pt condition. This nurse explained that Pt needs medication to help keep blood from dropping. very grateful for this nurse calling her and would like patient to receive the midodrine. Miya CHEUNG updated.
[2017-11-13] MEDS: Acetaminophen 500 MG Tablet 1000 MG PO ×2 (15:06→21:31)
[2017-11-13] MEDS: Midodrine HCl 5 MG Tablet PO ×2 (15:06→21:31)
--- NOTE | 2017-11-13 15:15 | MDS.RN ---
Information for the mds was obtained from review of the clinical record, interview of resident, staff, and direct observation of resident's care.
[2017-11-13 15:20] VITALS: BP 140/67; PULSE 50; RESP 18; TEMP 36.9; O2SAT 98
--- NOTE | 2017-11-13 18:16 | NURSING ---
Pt dressings changed by wound nurse this am. Dressings still dry and intact.
[2017-11-13] MEDS: Carvedilol 3.125 MG TABLET PO (19:05)
[2017-11-13] MEDS: Benzonatate 100 MG Capsule PO (21:31)
[2017-11-13] MEDS: Pravastatin 20 MG Tablet PO (21:31)
[2017-11-14] MEDS: Menthol/Lanolin/Calamine/Znox 113 GM Tube 1 APPLIC TOPICAL ×3 (05:51→20:20)
[2017-11-14] MEDS: Doxycycline 100 MG CAPSULE PO ×2 (05:54→18:34)
[2017-11-14] MEDS: Venlafaxine XR 150 MG Capsule PO (05:55)
[2017-11-14] MEDS: Furosemide 20 MG Tablet PO (05:55)
[2017-11-14] MEDS: Fluticasone/Salmeterol 232-14 Inhaler 1 PUFF IH ×2 (05:55→18:33)
[2017-11-14] MEDS: Lidocaine 5% Patch 1 PATCH TOPICAL (05:56)
[2017-11-14] MEDS: Midodrine HCl 5 MG Tablet PO ×3 (05:58→20:29)
[2017-11-14] MEDS: Pantoprazole Sodium 20 MG Tablet PO ×2 (05:58→18:34)
[2017-11-14] MEDS: Cefdinir 300 MG Capsule PO ×2 (05:58→18:34)
[2017-11-14] MEDS: Levothyroxine 75 MCG Tablet PO (06:00)
[2017-11-14] MEDS: Acetaminophen 500 MG Tablet 1000 MG PO ×3 (06:00→21:41)
[2017-11-14 06:21] VITALS: BP 97/43; PULSE 80
[2017-11-14] MEDS: Ipratropium/Albuterol Sulfate 3 ML AMPUL.NEB INHALATION ×3 (07:02→18:45)
[2017-11-14 07:03] VITALS: PULSE 81; RESP 16; O2SAT 96
[2017-11-14] MEDS: Tobramycin 80 MG/2 ML Vial INHALATION ×2 (07:03→14:54)
[2017-11-14] MEDS: Aspirin 325 MG Tablet PO (08:36)
[2017-11-14] MEDS: Iron Polysaccharide Complex 150 MG CAPSULE PO (08:36)
--- NOTE | 2017-11-14 08:44 | NURSING ---
PT LYING IN BED,STATED HES NOT FEELING GOOD AND DID NOT GET ANY SLEEP LAST NIGHT. PT COMPLAINED OF INSIDE AND OUT OF NOSE BEING SORE. TRIED TO GET PT TO EAT,PT REFUSED. REPORTED TO JONATAN MASTERS.
--- NOTE | 2017-11-14 11:06 | CASEMGMT ---
Brief interview for mental status (BIMS) and resident mood interview completed on this day. BIMS score 13/15. PHQ-9 score 09/09.
[2017-11-14 14:37] VITALS: PULSE 84; RESP 16
--- NOTE | 2017-11-14 15:38 | NURSING ---
Patient has a decreased appetite, Dr. Parker made aware, NO for mirtazapine 7.5mg PO QHS.
[2017-11-14 15:47] VITALS: BP 111/66; PULSE 79; RESP 18; TEMP 36.2; O2SAT 98
--- NOTE | 2017-11-14 15:52 | NURSING ---
Dr. Parker reviewed final urine culture, O.
[2017-11-14] MEDS: Carvedilol 3.125 MG TABLET PO (18:35)
[2017-11-14 18:45] VITALS: PULSE 75; RESP 18
[2017-11-14 20:00] VITALS: PULSE 97; RESP 20; O2SAT 97
[2017-11-14] MEDS: Pravastatin 20 MG Tablet PO (20:21)
[2017-11-14] MEDS: Mirtazapine 15 MG Tablet 7.5 MG PO (20:25)
[2017-11-14] MEDS: Benzonatate 100 MG Capsule PO (20:28)
[2017-11-15] MEDS: Menthol/Lanolin/Calamine/Znox 113 GM Tube 1 APPLIC TOPICAL ×3 (06:18→22:36)
[2017-11-15] MEDS: Venlafaxine XR 150 MG Capsule PO (06:19)
[2017-11-15] MEDS: Pantoprazole Sodium 20 MG Tablet PO ×2 (06:19→17:37)
[2017-11-15] MEDS: Carvedilol 3.125 MG TABLET PO ×2 (06:19→17:37)
[2017-11-15] MEDS: Doxycycline 100 MG CAPSULE PO ×2 (06:19→17:37)
[2017-11-15] MEDS: Levothyroxine 75 MCG Tablet PO (06:19)
[2017-11-15] MEDS: Cefdinir 300 MG Capsule PO ×2 (06:19→17:37)
[2017-11-15] MEDS: Lidocaine 5% Patch 1 PATCH TOPICAL (06:20)
[2017-11-15] MEDS: Fluticasone/Salmeterol 232-14 Inhaler 1 PUFF IH ×2 (06:21→17:37)
[2017-11-15] MEDS: Furosemide 20 MG Tablet PO (06:21)
[2017-11-15] MEDS: Midodrine HCl 5 MG Tablet PO ×3 (06:21→21:59)
[2017-11-15] MEDS: Acetaminophen 500 MG Tablet 1000 MG PO ×3 (06:22→21:53)
[2017-11-15 06:43] VITALS: PULSE 71; RESP 18; O2SAT 98
[2017-11-15] MEDS: Ipratropium/Albuterol Sulfate 3 ML AMPUL.NEB INHALATION ×3 (06:43→18:26)
[2017-11-15] MEDS: Tobramycin 80 MG/2 ML Vial INHALATION (06:44)
[2017-11-15 07:36] LABS: Anion Gap 8 (5-15); BUN 72 mg/dL (7-18); BUN/Creat Ratio 46.5 RATIO (10-20); Calcium,Total 8.4 mg/dL (8.5-10.1); Chloride 104 mmol/L (98-107); Creatinine, Serum 1.55 mg/dL (0.70-1.30); EST Glomerular Filtration Rate 46 mL/min (>60); Est Glom Filt Rate - Afr Amer 56 mL/min (>60); Glucose 74 mg/dL (74-106); Potassium 3.3 mmol/L (3.5-5.1); Sodium Level 141 mmol/L (136-145)
[2017-11-15 07:57] LABS: Absolute Lymphocyte Count 1.61 X10^3/ul (0.83-4.51); Absolute Neutrophil Count 2.4 X10^3/uL (2.0-7.7); Basophil# 0.01 X10^3/uL; Basophil% 0.2 % (0-1); Eosinophil# 0.22 X10^3/uL; Eosinophils% 4.2 % (0-5); Hematocrit 32.7 % (40-54); Hemoglobin 10.6 g/dl (13.0-16.5); Lymphocyte # 1.61 X10^3/ul (4.0); Mean Corp Hgb Conc 32.4 g/gl (32-36); Mean Corpuscular Hgb 28.2 pg (27.0-32.0); Mean Platelet Vol. 9.8 fl (6.2-12.0); Monocyte# 0.93 X10^3/uL; Monocyte% 17.9 % (0-10); Neutrophil # 2.42 X10^3/uL (2.7-7.7); Neutrophil % 46.5 % (47-70); Platelet Count 274 K/mm3 (150-450); RBC Distribution Width CV 17.9 % (11.6-14.6); RBC Distribution Width SD 56.7 fl (35.1-43.9); Red Blood Count 3.76 M/mm3 (4.6-6.2); White Blood Count 5.2 K/mm3 (4.4-11.0)
[2017-11-15 08:16] LABS: POSITIVE COUNT NO; POSITIVE DIFFERENTIAL NO; POSITIVE MORPHOLOGY NO
[2017-11-15] MEDS: Aspirin 325 MG Tablet PO (08:54)
[2017-11-15] MEDS: Iron Polysaccharide Complex 150 MG CAPSULE PO (08:54)
[2017-11-15 10:00] VITALS: PULSE 80; RESP 20; O2SAT 94
--- NOTE | 2017-11-15 11:51 | NURSING ---
URINE CULTURE/SENSITIVITY REVIEWED BY VIDHI MOORE NP. NNO'S. REVIEWED LABS AND NEW ORDER FOR POTASSIUM 3.3 KDUR INCREASED TO BID. RECHECK BMP ON FRIDAY
[2017-11-15 13:05] VITALS: PULSE 67; RESP 18
[2017-11-15] MEDS: Ondansetron ODT 4 MG Tablet PO (13:28)
--- NOTE | 2017-11-15 13:47 | NURSING ---
Addendum entered by Susan Ahuja 11/15/17 18:18: Rudy Camacho NP notified, new order to check cdiff and start probiotic Original Note: Pt having nausea, and diarrhea. liquid stools x3 today, Pt incontinent of stool at this time. Pt cleaned up and clothing changed. Susan CHEUNG aware.
[2017-11-15 15:45] VITALS: BP 106/56; PULSE 72; RESP 18; TEMP 36.2; O2SAT 99
[2017-11-15 18:26] VITALS: PULSE 75; RESP 18
[2017-11-15] MEDS: Pravastatin 20 MG Tablet PO (21:47)
[2017-11-15] MEDS: Mirtazapine 15 MG Tablet 7.5 MG PO (21:53)
[2017-11-15] MEDS: Benzonatate 100 MG Capsule PO (21:53)
[2017-11-16] MEDS: Carvedilol 3.125 MG TABLET PO ×2 (05:54→17:07)
[2017-11-16] MEDS: Venlafaxine XR 150 MG Capsule PO (05:54)
[2017-11-16] MEDS: Lidocaine 5% Patch 1 PATCH TOPICAL (05:54)
[2017-11-16] MEDS: Acetaminophen 500 MG Tablet 1000 MG PO ×3 (05:54→22:00)
[2017-11-16] MEDS: Levothyroxine 75 MCG Tablet PO (05:55)
[2017-11-16] MEDS: Midodrine HCl 5 MG Tablet PO ×3 (05:55→21:00)
[2017-11-16] MEDS: Furosemide 20 MG Tablet PO (05:55)
[2017-11-16] MEDS: Cefdinir 300 MG Capsule PO ×2 (05:55→17:07)
[2017-11-16] MEDS: Doxycycline 100 MG CAPSULE PO ×2 (05:55→17:07)
[2017-11-16] MEDS: Pantoprazole Sodium 20 MG Tablet PO ×2 (05:55→17:06)
[2017-11-16] MEDS: Fluticasone/Salmeterol 232-14 Inhaler 1 PUFF IH ×2 (06:43→17:09)
[2017-11-16] MEDS: Levothyroxine 150 MCG Tablet PO (06:43)
[2017-11-16] MEDS: Menthol/Lanolin/Calamine/Znox 113 GM Tube 1 APPLIC TOPICAL ×3 (06:43→20:55)
[2017-11-16] MEDS: Aspirin 325 MG Tablet PO (07:52)
[2017-11-16] MEDS: Iron Polysaccharide Complex 150 MG CAPSULE PO (07:52)
--- NOTE | 2017-11-16 08:25 | NURSING ---
Addendum entered by Zoe Ahuja 11/16/17 11:02: also started on mucinex for mucus reduction Original Note: Addendum entered by Zoe Ahuja 11/16/17 11:00: Rudy Camacho NP notified, new order to start imodium prn for loose stools, cdiff negative yesterday. Aware of lungs sounds, wants sputum culture. Original Note: Pt refusing breakfast, states he can't eat he cannot taste anything and that he has never felt this bad in his life. Lungs have crackles bilaterally moist cough. Zoe CHEUNG updated
[2017-11-16 10:00] VITALS: PULSE 80; RESP 18; O2SAT 94
[2017-11-16 13:23] VITALS: PULSE 74; RESP 18
[2017-11-16] MEDS: Ipratropium/Albuterol Sulfate 3 ML AMPUL.NEB INHALATION ×2 (13:23→19:00)
[2017-11-16] MEDS: Loperamide 2 MG Capsule PO (14:05)
[2017-11-16 16:00] VITALS: BP 112/64; PULSE 75; RESP 18; TEMP 36.4; O2SAT 97
--- NOTE | 2017-11-16 16:58 | NURSING ---
CALLED IN CONCERNED REGARDING PT CONTINUED LOOSE STOOLS, EXPLAINED ROGERIO MOSHER ORDERED IMODIUM, PT ON ATB'S AND SPUTUM SENT TO LAB. REQUESTING FLU SWAB. NOTIFIED ROGERIO MOSHER AND HE DOES NOT WANT FLU SWAB, NO NECESSARY. PT HAS PNEUMONIA. AWAITING SPUTUM CULTURES.
[2017-11-16] MEDS: guaiFENesin 1,200 MG Tablet 1200 MG PO (17:13)
[2017-11-16 19:00] VITALS: PULSE 75; RESP 18
[2017-11-16] MEDS: Tobramycin 80 MG/2 ML Vial INHALATION (19:20)
[2017-11-16] MEDS: Mirtazapine 15 MG Tablet 7.5 MG PO (20:57)
[2017-11-16] MEDS: Pravastatin 20 MG Tablet PO (20:59)
[2017-11-16] MEDS: Benzonatate 100 MG Capsule PO (21:00)
--- NOTE | 2017-11-19 12:15 | EKG12_ITS ---
Test Reason : CP Blood Pressure : / mmHG Vent. Rate : 079 BPM Atrial Rate : 079 BPM P-R Int : 196 ms QRS Dur : 108 ms QT Int : 428 ms P-R-T Axes : 028 -18 093 degrees QTc Int : 490 ms Normal sinus rhythm Inferior infarct , age undetermined Abnormal ECG Confirmed by WOLF LEONARD, DEBRA ([id number]), editor managing newspaper PUNEET VELASCO ([id number]) on 11/26/2017 5:07:09 PM Referred By: Mikael Parker Confirmed By:DEBRA BLOOM MD
[2017-11-22 07:28] LABS: Anion Gap 9 (5-15); BUN 70 mg/dL (7-18); BUN/Creat Ratio 30.3 RATIO (10-20); Calcium,Total 8.8 mg/dL (8.5-10.1); Chloride 102 mmol/L (98-107); Creatinine, Serum 2.31 mg/dL (0.70-1.30); EST Glomerular Filtration Rate 29 mL/min (>60); Est Glom Filt Rate - Afr Amer 35 mL/min (>60); Estimated Creatinine Clearance 23.02 ml/min; Glucose 83 mg/dL (74-106); Potassium 3.5 mmol/L (3.5-5.1); Sodium Level 138 mmol/L (136-145)
[2017-11-22 12:42] LABS: Anion Gap 9 (5-15); BNP,B-Type NATRIURETIC PEPTIDE 310.7 pg/mL (0-100); BUN 59 mg/dL (7-18); BUN/Creat Ratio 28.6 RATIO (10-20); Calcium,Total 8.5 mg/dL (8.5-10.1); Chloride 101 mmol/L (98-107); Creatinine, Serum 2.06 mg/dL (0.70-1.30); EST Glomerular Filtration Rate 33 mL/min (>60); Est Glom Filt Rate - Afr Amer 40 mL/min (>60); Estimated Creatinine Clearance 25.81 ml/min; Glucose 87 mg/dL (74-106); Potassium 3.7 mmol/L (3.5-5.1); Sodium Level 137 mmol/L (136-145)
[2017-11-24] MEDS: guaiFENesin 1,200 MG Tablet 1200 MG PO ×2 (05:15→17:45)
[2017-11-24] MEDS: Acetaminophen 500 MG Tablet 1000 MG PO ×2 (05:15→14:00)
[2017-11-24] MEDS: Carvedilol 3.125 MG TABLET PO ×2 (05:15→17:44)
[2017-11-24] MEDS: Pantoprazole Sodium 20 MG Tablet PO ×2 (05:15→17:49)
[2017-11-24] MEDS: Menthol/Lanolin/Calamine/Znox 113 GM Tube 1 APPLIC TOPICAL ×3 (05:15→21:02)
[2017-11-24] MEDS: Venlafaxine XR 150 MG Capsule PO (05:15)
[2017-11-24] MEDS: Lidocaine 5% Patch 1 PATCH TOPICAL (05:15)
[2017-11-24] MEDS: Fluticasone/Salmeterol 232-14 Inhaler 1 PUFF IH ×3 (05:15→17:47)
[2017-11-24] MEDS: Aspirin 325 MG Tablet PO (08:00)
[2017-11-24] MEDS: Iron Polysaccharide Complex 150 MG CAPSULE PO (08:00)
[2017-11-24 10:00] VITALS: BP 119/76; PULSE 68; RESP 18; RESP 20; TEMP 36.3; O2SAT 94; O2SAT 98
[2017-11-24] MEDS: Ondansetron ODT 4 MG Tablet PO (15:38)
--- NOTE | 2017-11-24 19:30 | PCM.TCUNOT ---
Subjective: Resident has not been doing well, he has severe fatigue, and he has persistent nausea. Vitals/I&O's: Vital Signs Temp Pulse Resp BP Pulse Ox 97.3 F L 68 18 119/76 98 11/24/17 10:00 11/24/17 10:00 11/24/17 10:00 11/24/17 10:00 11/24/17 10:00 Oxygen Flow Rate (L/min) 4 Oxygen Delivery Method Nasal Cannula Weight: 94.489 kg Body Mass Index (BMI) 35.1 Past Medical History Past Medical History (Chronic Problems): Chronic Problems (Last Reviewed 11/05/17 @ 13:33 by Joelle Vega) Obesity (Chronic) Deep vein thrombosis (Chronic) Bronchiectasis (Chronic) Chronic systolic heart failure (Chronic) Coronary artery disease (Chronic) Myocardial infarction (Chronic) Diabetes mellitus (Chronic) Hypertension (Chronic) Hypothyroidism (Chronic) Nausea (Chronic) GERD (gastroesophageal reflux disease) (Chronic) Depression (Chronic) Obesity (BMI 30.0-34.9) (Chronic) ALIVIA (obstructive sleep apnea) (Chronic) History of DVT (deep vein thrombosis) (Chronic) COPD (chronic obstructive pulmonary disease) (Chronic) CKD (chronic kidney disease) stage 3, GFR 30-59 ml/min (Chronic) MCFP (current) use of anticoagulants (Chronic) Atrial fibrillation (Chronic) Cardiac pacemaker in situ (Chronic) Ventricular tachycardia (Chronic) Chronic systolic congestive heart failure (Chronic) Presence of stent in coronary artery (Chronic ~06/20/04) PTCA/DO to mid RCA 06/20/04 H/O percutaneous transluminal coronary angioplasty (Chronic) 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) CABG x4-PABLITO to LAD, ZIMMERMAN to DX, SVG to CX, SVG to RCA 1985 Atherosclerotic heart disease of [place] coronary artery without angina pectoris (Chronic) CABG x4-PABLITO to LAD, ZIMMERMAN to DX, SVG to CX, SVG to RCA 1985; PTCA/DO to mid RCA 06/20/04 Ischemic cardiomyopathy (Chronic) Benign essential hypertension (Chronic) Type II diabetes mellitus (Chronic) HLD (hyperlipidemia) (Chronic) AICD (automatic cardioverter/defibrillator) present (Chronic) implantation 04/21; gen change and pocket revision 03/17/13 Medical History: Medical History (Last Reviewed 11/05/17 @ 13:33 by Joelle Vega) Old myocardial infarction (Chronic) I25.2 Atherosclerotic heart disease of [place] coronary artery without angina pectoris (Chronic) I25.10 CABG x4-PABLITO to LAD, ZIMMERMAN to DX, SVG to CX, SVG to RCA 1985; PTCA/DO to mid RCA 06/20/04 Ischemic cardiomyopathy (Chronic) I25.5 Benign essential hypertension (Chronic) I10 Type II diabetes mellitus (Chronic) E11.9 HLD (hyperlipidemia) (Chronic) E78.5 AICD (automatic cardioverter/defibrillator) present (Chronic) Z95.810 implantation 04/21; gen change and pocket revision 03/17/13 Anemia of chronic renal failure, stage 3 (moderate) N18.3, D63.1 COPD (chronic obstructive pulmonary disease) J44.9 Hiatal hernia with gastroesophageal reflux K21.9, K44.9 History of DVT (deep vein thrombosis) Z86.718 History of prostate cancer Z85.46 Hypothyroidism E03.9 ALIVIA (obstructive sleep apnea) G47.33 Osteomyelitis M86.9 Peripheral vascular disease I73.9 Pulmonary fibrosis J84.10 Occlusion of left subclavian vein I82.B12 port placement rt side Acute bronchitis (Inactive) J20.9 Acute exacerbation of chronic obstructive pulmonary disease (Inactive) J44.1 Anemia of chronic renal failure, stage 3 (moderate) (Inactive) N18.3, D63.1 Aspiration pneumonia (Inactive) J69.0 CAD (coronary artery disease) (Inactive) I25.10 s/p cabg ef=40% negative stress 01/27 COPD (chronic obstructive pulmonary disease) (Inactive) J44.9 Chronic CHF (Inactive) I50.9 ef=40% Chronic anticoagulation (Inactive) Z79.01 Hiatal hernia with gastroesophageal reflux (Inactive) K21.9, K44.9 History of DVT (deep vein thrombosis) (Inactive) Z86.718 on coumadin History of prostate cancer (Inactive) Hypothyroidism (Inactive) E03.9 ALIVIA (obstructive sleep apnea) (Inactive) G47.33 PVD (peripheral vascular disease) (Inactive) I73.9 Subtherapeutic international normalized ratio (INR) (Inactive) R79.1 Allergies fexofenadine Adverse Reaction (Severe, Verified 11/05/17 13:24) Cough prednisone Adverse Reaction (Severe, Verified 11/05/17 13:24) Unknown oxycodone [From Percocet] Adverse Reaction (Unknown, Verified 11/05/17 13:24) Unknown amiodarone Adverse Reaction (Verified 11/05/17 13:24) affects his lungs/breathing azithromycin Adverse Reaction (Verified 11/05/17 13:24) Other PATIENT STATES HE LOST HIS HEARING AND HIS HAIR levofloxacin [From Levaquin] Adverse Reaction (Verified 11/05/17 13:24) Other linezolid [From Zyvox] Adverse Reaction (Verified 11/05/17 13:24) decreased platelets morphine Adverse Reaction (Verified 11/05/17 13:24) agitated tramadol Adverse Reaction (Verified 11/05/17 13:24) interferes with another medication he is on Home Medications: Ambulatory Orders Medication Instructions Recorded Albuterol Aerosols [Ventolin 2.5 mg INHALATION Q6H PRN PRN 06/02/17 Aerosols] Benzonatate [Tessalon Perle] 100 mg PO QHS 06/02/17 Carvedilol [Coreg] 12.5 mg PO BID 06/02/17 Clotrimazole [Lotrimin] 1 applicatio TOPICAL BID 06/02/17 levothyroxine 75 mcg tablet 75 mcg PO MOTUWETHFRSA tab 08/04/17 tiotropium bromide 18 mcg capsule 18 mcg INHALATION QDAY 08/06/17 with inhalation device Dronedarone Hydrochloride [Multaq] 400 mg PO BID 09/11/17 Levothyroxine [Synthroid] 150 mcg PO SHEPHERD 10/28/17 Metoclopramide [Metoclopramide HCl] 5 mg PO QHS 10/28/17 Pantoprazole Sodium [Protonix] 20 mg PO BID 10/28/17 Venlafaxine HCl [Venlafaxine HCl 150 mg PO DAILY 10/28/17 ER] Acetaminophen [Tylenol] 1,000 mg PO Q8 10/31/17 Aspirin 325 mg PO DAILY@0800 10/31/17 Glucerna Shake 120 ml PO TIDCM 10/31/17 Insulin Lispro [Humalog KwikPen] See Protocol SQ ACHS 10/31/17 Lidocaine [Lidoderm Patch] 1 patch TOPICAL DAILY 10/31/17 fluticasone 250 mcg-salmeterol 50 1 inh INHALATION BID 11/05/17 mcg/dose blistr powdr for inhalation furosemide 20 mg tablet 40 mg PO QODAY tab 11/05/17 midodrine 5 mg tablet 5 mg PO TID #90 tab 11/05/17 polysaccharide iron complex 150 mg 150 mg PO QDAY cap 11/05/17 iron capsule Surgical History: Surgical History (Last Reviewed 11/05/17 @ 13:33 by Joelle Vega) H/O percutaneous transluminal coronary angioplasty (Chronic) Z98.61 Aortocoronary bypass status (Chronic) Onset Date: ~1985 Z95.1 CABG x4-PABLITO to LAD, ZIMMERMAN to DX, SVG to CX, SVG to RCA 1985 History of total knee replacement Z96.659 bilateral History of prostatectomy Z98.890, Z90.79 History of total knee replacement (Inactive) Z96.659 Left Hx of CABG (Inactive) Surgical History: coronary bypass surgery, pacemaker implantation, total knee arthroplasty - BL, - - 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 Jennings, PCI/stents. Psychiatric History: No pertinent psych hx Lives: Spouse/ Significant Other Smoking Status: Former smoker Tobacco Use: Non-smoker Alcohol: None Drugs: None - *Family History Maternal Family History: Family History (Last Reviewed 11/05/17 @ 13:33 by Joelle Vega) Brother Heart disease History Items: No pertinent history Paternal Family History: Family History (Last Reviewed 11/05/17 @ 13:33 by Joelle Vega) Brother Heart disease History Items: No pertinent history Review of Systems Constitutional: Reports: Malaise, Weakness. Denies: Chills, Fever, Weight Change HEENT: Denies: Head Aches, Sinus Congestion, Sinus Drainage Cardiovascular: Denies: Chest Pain, Palpitations Respiratory: Denies: Cough, Shortness of breath at rest, Sputum production Gastrointestinal: Reports: Nausea. Denies: Abdominal Pain, Vomiting Genitourinary: Denies: Dysuria Musculoskeletal: Denies: Joint Pain, Joint Tenderness Skin: Denies: Rash, Wounds Neurological: Denies: Numbness, Tingling, Focal weakness Psychiatric: Denies: Anxiety, Depression, Homicidal Ideations, Suicidal Ideations Hematologic/ Lymphatic: Denies: Easy Bruising, Easy Bleeding Patient Problems: Active and Suspected Problems (Last Reviewed 11/05/17 @ 13:33 by Joelle Vega) Fall (Acute) Left radial fracture (Acute) Knee laceration (Acute) Cellulitis (Acute) Acute on chronic kidney failure (Acute) - Physical Exam General: Alert, Oriented x3, Cooperative HEENT: Atraumatic, PERRLA, EOMI, Normocephalic Neck: Supple, No JVD, Negative Carotid Bruits Lungs: Clear to auscultation, Normal air movement Cardiovascular: Regular rate, No murmurs Abdomen: Bowel Sounds Present, Soft, Non Tender Extremities: No edema, Capillary Refill Less than 3 Seconds Skin: No rashes, No breakdown Musculoskeletal: No Tenderness to Palpation of Joints or Extremities Neurological: Cranial nerves II-XII grossly intact Psych/Mental Status: Normal Affect, Appropriate Vital Signs Temp Pulse Resp BP Pulse Ox 97.3 F L 68 18 119/76 98 11/24/17 10:00 11/24/17 10:00 11/24/17 10:00 11/24/17 10:00 11/24/17 10:00 Oxygen Flow Rate (L/min) 4 Oxygen Delivery Method Nasal Cannula Weight: 94.489 kg Body Mass Index (BMI) 35.1 Assessment/Plan All Active Problems (Last Reviewed 11/05/17 @ 13:33 by Joelle Vega) FALL on knees and elbow (Acute) BILA KNEES LACERATION AND BLEEDING (Acute) gisel ON ckd (Acute) Fall (Acute) Left radial fracture (Acute) Knee laceration (Acute) Cellulitis (Acute) Acute on chronic kidney failure (Acute) Left leg cellulitis (Acute) Unspecified open wound, left foot, initial encounter (Acute) Avulsion of skin of left hand (Resolved) Avulsion of skin of right forearm (Resolved) Avulsion of skin of right hand (Resolved) History of subdural hemorrhage (Resolved) Hypotension (Resolved) Rhinovirus (Resolved) Supratherapeutic INR (Resolved) 82 year old male with below past medical history hospitalized for bilateral knee lacerations/cellulitis, complicated by acute kidney injury, admitted to TCU with debility, here for rehabilitation, strengthening, prior to discharge with spouse. Debility - PT/OT. Pain - Lidoderm patch 1 patch daily. COPD - Albuterol 2.5MG Q6H PRN, Advair 234-14 1 puff BID, Spiriva 18MCG daily, VEST therapy twice daily. Atrial Fibrillation - Coreg 3.125MG BID, Multaq 400MG BID, Aspirin 81MG daily. Chronic systolic heart failure - Coreg 3.125MG BID. Hypothyroidism - Levothyroxine 75MCG 6 days/week, 150MCG 1 day/week. Nausea - Reglan 10MG QACHS. GERD - Pantoprazole 20MG BID. Depression - Venlafaxine XR 75MG daily. Hypokalemia - KCL 20MEQ BID. Hyperlipidemia - Pravastatin 20MG QHS. End of Life - Resident maybe dying, he has chronic systolic heart failure, bronchiectasis, I approached the topic with resident, but will try medication adjustment and see how he does prior to considering hospice referral.
[2017-11-24] MEDS: Ipratropium/Albuterol Sulfate 3 ML AMPUL.NEB INHALATION (19:35)
--- NOTE | 2017-11-24 19:36 | PN_ITS ---
Subjective: Resident has not been doing well, he has severe fatigue, and he has persistent nausea. Vitals/I&O's: Vital Signs Temp Pulse Resp BP Pulse Ox 97.3 F L 68 18 119/76 98 11/24/17 10:00 11/24/17 10:00 11/24/17 10:00 11/24/17 10:00 11/24/17 10:00 Oxygen Flow Rate (L/min) 4 Oxygen Delivery Method Nasal Cannula Weight: 94.489 kg Body Mass Index (BMI) 35.1 Past Medical History Past Medical History (Chronic Problems): Chronic Problems (Last Reviewed 11/05/17 @ 13:33 by Joelle Vega) Obesity (Chronic) Deep vein thrombosis (Chronic) Bronchiectasis (Chronic) Chronic systolic heart failure (Chronic) Coronary artery disease (Chronic) Myocardial infarction (Chronic) Diabetes mellitus (Chronic) Hypertension (Chronic) Hypothyroidism (Chronic) Nausea (Chronic) GERD (gastroesophageal reflux disease) (Chronic) Depression (Chronic) Obesity (BMI 30.0-34.9) (Chronic) ALIVIA (obstructive sleep apnea) (Chronic) History of DVT (deep vein thrombosis) (Chronic) COPD (chronic obstructive pulmonary disease) (Chronic) CKD (chronic kidney disease) stage 3, GFR 30-59 ml/min (Chronic) shelter (current) use of anticoagulants (Chronic) Atrial fibrillation (Chronic) Cardiac pacemaker in situ (Chronic) Ventricular tachycardia (Chronic) Chronic systolic congestive heart failure (Chronic) Presence of stent in coronary artery (Chronic ~06/20/04) PTCA/DO to mid RCA 06/20/04 H/O percutaneous transluminal coronary angioplasty (Chronic) 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) CABG x4-PABLITO to LAD, ZIMMERMAN to DX, SVG to CX, SVG to RCA 1985 Atherosclerotic heart disease of [place] coronary artery without angina pectoris (Chronic) CABG x4-PABLITO to LAD, ZIMMERMAN to DX, SVG to CX, SVG to RCA 1985; PTCA/DO to mid RCA 06/20/04 Ischemic cardiomyopathy (Chronic) Benign essential hypertension (Chronic) Type II diabetes mellitus (Chronic) HLD (hyperlipidemia) (Chronic) AICD (automatic cardioverter/defibrillator) present (Chronic) implantation 04/21; gen change and pocket revision 03/17/13 Medical History: Medical History (Last Reviewed 11/05/17 @ 13:33 by Joelle Vega) Old myocardial infarction (Chronic) I25.2 Atherosclerotic heart disease of [place] coronary artery without angina pectoris (Chronic) I25.10 CABG x4-PABLITO to LAD, ZIMMERMAN to DX, SVG to CX, SVG to RCA 1985; PTCA/DO to mid RCA 06/20/04 Ischemic cardiomyopathy (Chronic) I25.5 Benign essential hypertension (Chronic) I10 Type II diabetes mellitus (Chronic) E11.9 HLD (hyperlipidemia) (Chronic) E78.5 AICD (automatic cardioverter/defibrillator) present (Chronic) Z95.810 implantation 04/21; gen change and pocket revision 03/17/13 Anemia of chronic renal failure, stage 3 (moderate) N18.3, D63.1 COPD (chronic obstructive pulmonary disease) J44.9 Hiatal hernia with gastroesophageal reflux K21.9, K44.9 History of DVT (deep vein thrombosis) Z86.718 History of prostate cancer Z85.46 Hypothyroidism E03.9 ALIVIA (obstructive sleep apnea) G47.33 Osteomyelitis M86.9 Peripheral vascular disease I73.9 Pulmonary fibrosis J84.10 Occlusion of left subclavian vein I82.B12 port placement rt side Acute bronchitis (Inactive) J20.9 Acute exacerbation of chronic obstructive pulmonary disease (Inactive) J44.1 Anemia of chronic renal failure, stage 3 (moderate) (Inactive) N18.3, D63.1 Aspiration pneumonia (Inactive) J69.0 CAD (coronary artery disease) (Inactive) I25.10 s/p cabg ef=40% negative stress 01/27 COPD (chronic obstructive pulmonary disease) (Inactive) J44.9 Chronic CHF (Inactive) I50.9 ef=40% Chronic anticoagulation (Inactive) Z79.01 Hiatal hernia with gastroesophageal reflux (Inactive) K21.9, K44.9 History of DVT (deep vein thrombosis) (Inactive) Z86.718 on coumadin History of prostate cancer (Inactive) Hypothyroidism (Inactive) E03.9 ALIVIA (obstructive sleep apnea) (Inactive) G47.33 PVD (peripheral vascular disease) (Inactive) I73.9 Subtherapeutic international normalized ratio (INR) (Inactive) R79.1 Allergies fexofenadine Adverse Reaction (Severe, Verified 11/05/17 13:24) Cough prednisone Adverse Reaction (Severe, Verified 11/05/17 13:24) Unknown oxycodone [From Percocet] Adverse Reaction (Unknown, Verified 11/05/17 13:24) Unknown amiodarone Adverse Reaction (Verified 11/05/17 13:24) affects his lungs/breathing azithromycin Adverse Reaction (Verified 11/05/17 13:24) Other PATIENT STATES HE LOST HIS HEARING AND HIS HAIR levofloxacin [From Levaquin] Adverse Reaction (Verified 11/05/17 13:24) Other linezolid [From Zyvox] Adverse Reaction (Verified 11/05/17 13:24) decreased platelets morphine Adverse Reaction (Verified 11/05/17 13:24) agitated tramadol Adverse Reaction (Verified 11/05/17 13:24) interferes with another medication he is on Home Medications: Ambulatory Orders Medication Instructions Recorded Albuterol Aerosols [Ventolin 2.5 mg INHALATION Q6H PRN PRN 06/02/17 Aerosols] Benzonatate [Tessalon Perle] 100 mg PO QHS 06/02/17 Carvedilol [Coreg] 12.5 mg PO BID 06/02/17 Clotrimazole [Lotrimin] 1 applicatio TOPICAL BID 06/02/17 levothyroxine 75 mcg tablet 75 mcg PO MOTUWETHFRSA tab 08/04/17 tiotropium bromide 18 mcg capsule 18 mcg INHALATION QDAY 08/06/17 with inhalation device Dronedarone Hydrochloride [Multaq] 400 mg PO BID 09/11/17 Levothyroxine [Synthroid] 150 mcg PO SHEPHERD 10/28/17 Metoclopramide [Metoclopramide HCl] 5 mg PO QHS 10/28/17 Pantoprazole Sodium [Protonix] 20 mg PO BID 10/28/17 Venlafaxine HCl [Venlafaxine HCl 150 mg PO DAILY 10/28/17 ER] Acetaminophen [Tylenol] 1,000 mg PO Q8 10/31/17 Aspirin 325 mg PO DAILY@0800 10/31/17 Glucerna Shake 120 ml PO TIDCM 10/31/17 Insulin Lispro [Humalog KwikPen] See Protocol SQ ACHS 10/31/17 Lidocaine [Lidoderm Patch] 1 patch TOPICAL DAILY 10/31/17 fluticasone 250 mcg-salmeterol 50 1 inh INHALATION BID 11/05/17 mcg/dose blistr powdr for inhalation furosemide 20 mg tablet 40 mg PO QODAY tab 11/05/17 midodrine 5 mg tablet 5 mg PO TID #90 tab 11/05/17 polysaccharide iron complex 150 mg 150 mg PO QDAY cap 11/05/17 iron capsule Surgical History: Surgical History (Last Reviewed 11/05/17 @ 13:33 by Joelle Vega) H/O percutaneous transluminal coronary angioplasty (Chronic) Z98.61 Aortocoronary bypass status (Chronic) Onset Date: ~1985 Z95.1 CABG x4-PABLITO to LAD, ZIMMERMAN to DX, SVG to CX, SVG to RCA 1985 History of total knee replacement Z96.659 bilateral History of prostatectomy Z98.890, Z90.79 History of total knee replacement (Inactive) Z96.659 Left Hx of CABG (Inactive) Surgical History: coronary bypass surgery, pacemaker implantation, total knee arthroplasty - BL, - - 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 Jennings , PCI/stents. Psychiatric History: No pertinent psych hx Lives: Spouse/ Significant Other Smoking Status: Former smoker Tobacco Use: Non-smoker Alcohol: None Drugs: None - *Family History Maternal Family History: Family History (Last Reviewed 11/05/17 @ 13:33 by Joelle Vega) Brother Heart disease History Items: No pertinent history Paternal Family History: Family History (Last Reviewed 11/05/17 @ 13:33 by Joelle Vega) Brother Heart disease History Items: No pertinent history Review of Systems Constitutional: Reports: Malaise, Weakness. Denies: Chills, Fever, Weight Change HEENT: Denies: Head Aches, Sinus Congestion, Sinus Drainage Cardiovascular: Denies: Chest Pain, Palpitations Respiratory: Denies: Cough, Shortness of breath at rest, Sputum production Gastrointestinal: Reports: Nausea. Denies: Abdominal Pain, Vomiting Genitourinary: Denies: Dysuria Musculoskeletal: Denies: Joint Pain, Joint Tenderness Skin: Denies: Rash, Wounds Neurological: Denies: Numbness, Tingling, Focal weakness Psychiatric: Denies: Anxiety, Depression, Homicidal Ideations, Suicidal Ideations Hematologic/ Lymphatic: Denies: Easy Bruising, Easy Bleeding Patient Problems: Active and Suspected Problems (Last Reviewed 11/05/17 @ 13:33 by Joelle Vega) Fall (Acute) Left radial fracture (Acute) Knee laceration (Acute) Cellulitis (Acute) Acute on chronic kidney failure (Acute) - Physical Exam General: Alert, Oriented x3, Cooperative HEENT: Atraumatic, PERRLA, EOMI, Normocephalic Neck: Supple, No JVD, Negative Carotid Bruits Lungs: Clear to auscultation, Normal air movement Cardiovascular: Regular rate, No murmurs Abdomen: Bowel Sounds Present, Soft, Non Tender Extremities: No edema, Capillary Refill Less than 3 Seconds Skin: No rashes, No breakdown Musculoskeletal: No Tenderness to Palpation of Joints or Extremities Neurological: Cranial nerves II-XII grossly intact Psych/Mental Status: Normal Affect, Appropriate Vital Signs Temp Pulse Resp BP Pulse Ox 97.3 F L 68 18 119/76 98 11/24/17 10:00 11/24/17 10:00 11/24/17 10:00 11/24/17 10:00 11/24/17 10:00 Oxygen Flow Rate (L/min) 4 Oxygen Delivery Method Nasal Cannula Weight: 94.489 kg Body Mass Index (BMI) 35.1 Assessment/Plan All Active Problems (Last Reviewed 11/05/17 @ 13:33 by Joelle Vega) FALL on knees and elbow (Acute) BILA KNEES LACERATION AND BLEEDING (Acute) gisel ON ckd (Acute) Fall (Acute) Left radial fracture (Acute) Knee laceration (Acute) Cellulitis (Acute) Acute on chronic kidney failure (Acute) Left leg cellulitis (Acute) Unspecified open wound, left foot, initial encounter (Acute) Avulsion of skin of left hand (Resolved) Avulsion of skin of right forearm (Resolved) Avulsion of skin of right hand (Resolved) History of subdural hemorrhage (Resolved) Hypotension (Resolved) Rhinovirus (Resolved) Supratherapeutic INR (Resolved) 82 year old male with below past medical history hospitalized for bilateral knee lacerations/cellulitis, complicated by acute kidney injury, admitted to TCU with debility, here for rehabilitation, strengthening, prior to discharge with spouse. * Debility - PT/OT. * Pain - Lidoderm patch 1 patch daily. * COPD - Albuterol 2.5MG Q6H PRN, Advair 234-14 1 puff BID, Spiriva 18MCG daily , VEST therapy twice daily. * Atrial Fibrillation - Coreg 3.125MG BID, Multaq 400MG BID, Aspirin 81MG daily. * Chronic systolic heart failure - Coreg 3.125MG BID. * Hypothyroidism - Levothyroxine 75MCG 6 days/week, 150MCG 1 day/week. * Nausea - Reglan 10MG QACHS. * GERD - Pantoprazole 20MG BID. * Depression - Venlafaxine XR 75MG daily. * Hypokalemia - KCL 20MEQ BID. * Hyperlipidemia - Pravastatin 20MG QHS. * End of Life - Resident maybe dying, he has chronic systolic heart failure, bronchiectasis, I approached the topic with resident, but will try medication adjustment and see how he does prior to considering hospice referral.
[2017-11-24 19:43] VITALS: PULSE 60; RESP 18; O2SAT 99
[2017-11-24] MEDS: Tobramycin 80 MG/2 ML Vial INHALATION (20:15)
[2017-11-24] MEDS: Pravastatin 20 MG Tablet PO (21:01)
[2017-11-24] MEDS: Metoclopramide 10 MG Tablet PO (21:01)
[2017-11-25] MEDS: Levothyroxine 75 MCG Tablet PO (05:22)
[2017-11-25] MEDS: Venlafaxine XR 75 MG Capsule PO (05:23)
[2017-11-25] MEDS: Carvedilol 3.125 MG TABLET PO ×2 (05:23→18:35)
[2017-11-25] MEDS: Fluticasone/Salmeterol 232-14 Inhaler 1 PUFF IH ×2 (05:23→18:37)
[2017-11-25] MEDS: Pantoprazole Sodium 20 MG Tablet PO ×2 (05:23→18:36)
[2017-11-25] MEDS: Menthol/Lanolin/Calamine/Znox 113 GM Tube 1 APPLIC TOPICAL ×2 (05:23→14:11)
[2017-11-25] MEDS: Metoclopramide 10 MG Tablet PO ×3 (05:23→18:33)
[2017-11-25] MEDS: Lidocaine 5% Patch 1 PATCH TOPICAL (05:24)
[2017-11-25 05:45] LABS: Hematocrit 34.9 % (40-54); Hemoglobin 11.6 g/dl (13.0-16.5); Mean Corp Hgb Conc 33.2 g/gl (32-36); Mean Corpuscular Hgb 28.4 pg (27.0-32.0); Mean Corpuscular Volume 85.3 fL (80-94); RBC Distribution Width CV 17.5 % (11.6-14.6); RBC Distribution Width SD 54.4 fl (35.1-43.9); Red Blood Count 4.09 M/mm3 (4.6-6.2); White Blood Count 10.5 K/mm3 (4.4-11.0)
[2017-11-25 05:46] LABS: Absolute Lymphocyte Count 2.18 X10^3/ul (0.83-4.51); Absolute Neutrophil Count 6.5 X10^3/uL (2.0-7.7); Basophil# 0.01 X10^3/uL; Basophil% 0.1 % (0-1); Eosinophil# 0.15 X10^3/uL; Eosinophils% 1.4 % (0-5); Lymphocyte # 2.18 X10^3/ul (4.0); Lymphocyte % 20.8 % (19-41); Mean Platelet Vol. 10.2 fl (6.2-12.0); Monocyte# 1.49 X10^3/uL; Monocyte% 14.2 % (0-10); Neutrophil # 6.51 X10^3/uL (2.7-7.7); Neutrophil % 62.3 % (47-70); POSITIVE COUNT NO; POSITIVE DIFFERENTIAL NO; POSITIVE MORPHOLOGY NO; Platelet Count 218 K/mm3 (150-450)
[2017-11-25] MEDS: Ipratropium/Albuterol Sulfate 3 ML AMPUL.NEB INHALATION ×3 (07:45→19:16)
[2017-11-25 07:53] VITALS: PULSE 68; RESP 21; O2SAT 97
[2017-11-25 13:39] VITALS: PULSE 72; RESP 18
--- NOTE | 2017-11-25 13:41 | MDS.RN ---
Information for the mds was obtained from review of the clinical record, interview of resident, staff, and direct observation of resident's care.
[2017-11-25] MEDS: Aspirin 81 MG TAB.CHEW PO (14:01)
[2017-11-25 15:39] VITALS: PULSE 74; RESP 18; O2SAT 90
[2017-11-25 15:53] VITALS: BP 112/72; PULSE 79; RESP 18; TEMP 36.3; O2SAT 100
[2017-11-25] MEDS: SACUBITRIL/VALSARTAN 24/26 MG TABLET 1 EACH PO (18:36)
[2017-11-25 19:16] VITALS: PULSE 76; RESP 18; O2SAT 97
--- NOTE | 2017-11-25 22:07 | NURSING ---
Pt C/O chest pain, left rib pain and n/t to right hand. Vitals obtained, BP 103/85, T 98.1, Pulse Ox 95% on 3L NC O2, R18, Pulse 58. Pt states the chest pain started about half hour ago and is getting worse. Rates the pain at an 8/10. Resting in bed, assessed by this nurse. Dr. Parker notified, N.O. to send pt to ER. Pt updated and agreeable to going to the ER. States I just want to feel better, comfort given by this nurse. banquet supervisor and , Maricarmen, updated. Maricarmen stating she will be in. Report called to Bebe in ER. Pt transferred at this time.
--- NOTE | 2017-11-26 07:55 | PCM.DC ---
- Discharge Diagnoses Current Active Problems: Current Active and Chronic Problems (Last Reviewed 11/26/17 @ 01:32 by Mustapha Hess DO) Shock (Acute) Hyperkalemia (Acute) Leukocytosis (Acute) You will use the following diet at home:: No restrictions, Regular Your food should be the consistency of: Regular Your liquids should be the consistency of: Regular/Thin Discharge Activity: Use Walker Weight Bearing Status: Weight bearing as tolerated Call your doctor if you observe: Fever of 101 or Higher, Inability to urinate, Inability to have a bowel movement, Shortness of breath, Chest pain, Uncontrolled pain Allergies/Adverse Reactions: Allergies fexofenadine Adverse Reaction (Severe, Verified 11/05/17 13:24) Cough prednisone Adverse Reaction (Severe, Verified 11/05/17 13:24) Unknown oxycodone [From Percocet] Adverse Reaction (Unknown, Verified 11/05/17 13:24) Unknown amiodarone Adverse Reaction (Verified 11/05/17 13:24) affects his lungs/breathing azithromycin Adverse Reaction (Verified 11/05/17 13:24) Other PATIENT STATES HE LOST HIS HEARING AND HIS HAIR levofloxacin [From Levaquin] Adverse Reaction (Verified 11/05/17 13:24) Other linezolid [From Zyvox] Adverse Reaction (Verified 11/05/17 13:24) decreased platelets morphine Adverse Reaction (Verified 11/05/17 13:24) agitated tramadol Adverse Reaction (Verified 11/05/17 13:24) interferes with another medication he is on Medications to take at Discharge Albuterol Aerosols [Ventolin Aerosols] 2.5 mg INHALATION Q6H PRN PRN 11/26/17 Aspirin [Aspirin, Baby] 81 mg PO DAILY@0800 11/26/17 Carvedilol [Coreg] 3.125 mg PO BID 11/26/17 Dronedarone Hydrochloride [Multaq] 400 mg PO BID 11/26/17 Fluticasone/Salmeterol [Fluticasone-Salmeterol 232-14] 1 each IH Q12H 11/26/17 Ipratropium/Albuterol Sulfate [Duoneb] 3 ml INHALATION Q6HWA.RT 11/26/17 Levothyroxine Sodium [Synthroid] 150 mcg PO SHEPHERD 11/26/17 Levothyroxine [Synthroid] 75 mcg PO MOTUWETHFRSA 11/26/17 Lidocaine [Lidoderm Patch] 1 patch TOPICAL DAILY 11/26/17 Menthol/Lanolin/Calamine/Znox [Calmoseptine Ointment] 1 applic TP TID 11/26/17 Metoclopramide [Reglan] 10 mg PO ACHS 11/26/17 Nutritional Supplement [David - ORANGE FLAVOR] 1 packet PO BIDCM 11/26/17 Pantoprazole Sodium [Protonix] 20 mg PO BID 11/26/17 Potassium Chloride [Klor-Con] 20 meq PO BIDCM 11/26/17 Pravastatin [Pravachol] 20 mg PO QHS 11/26/17 Sacubitril/Valsartan 24/26 mg [Entresto 24 mg-26 mg Tablet] 1 each PO BID 11/26/17 Tiotropium [place] [Spiriva 18 MCG] 1 puff INHALATION DAILY 11/26/17 Venlafaxine XR [Effexor Xr] 75 mg PO DAILY 11/26/17 Primary Care Physician: Anna Umana DO [Primary Care Provider] - Please follow up with your Primary Care Physician in: After hospitalization. Please Follow Up With: Pacer check Please Follow Up With: Echo Proposed Discharge Date: 11/26/17
--- NOTE | 2017-11-26 07:56 | PCM.DC.SUM ---
Discharge Date and Diagnosis - Problem List Patient Problems: Active and Suspected Problems (Last Reviewed 11/26/17 @ 01:32 by Mustapha Hess DO) Shock (Acute) Hyperkalemia (Acute) Leukocytosis (Acute) Date of Admission: 10/31/17 Date of Discharge: 11/26/17 - Primary Discharge Diagnosis Active and Suspected Problems (Last Reviewed 11/26/17 @ 01:32 by Mustapha Hess DO) Shock (Acute) Hyperkalemia (Acute) Leukocytosis (Acute) - Secondary Discharge Diagnosis Chronic Problems (Last Reviewed 11/26/17 @ 01:32 by Mustapha Hess DO) Obesity (Chronic) Deep vein thrombosis (Chronic) Bronchiectasis (Chronic) Chronic systolic heart failure (Chronic) Coronary artery disease (Chronic) Myocardial infarction (Chronic) Diabetes mellitus (Chronic) Hypertension (Chronic) Hypothyroidism (Chronic) Nausea (Chronic) GERD (gastroesophageal reflux disease) (Chronic) Depression (Chronic) Obesity (BMI 30.0-34.9) (Chronic) ALIVIA (obstructive sleep apnea) (Chronic) History of DVT (deep vein thrombosis) (Chronic) COPD (chronic obstructive pulmonary disease) (Chronic) CKD (chronic kidney disease) stage 3, GFR 30-59 ml/min (Chronic) group home (current) use of anticoagulants (Chronic) Atrial fibrillation (Chronic) Cardiac pacemaker in situ (Chronic) Ventricular tachycardia (Chronic) Chronic systolic congestive heart failure (Chronic) Presence of stent in coronary artery (Chronic ~06/20/04) PTCA/DO to mid RCA 06/20/04 H/O percutaneous transluminal coronary angioplasty (Chronic) 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) CABG x4-PABLITO to LAD, ZIMMERMAN to DX, SVG to CX, SVG to RCA 1985 Atherosclerotic heart disease of [place] coronary artery without angina pectoris (Chronic) CABG x4-PABLITO to LAD, ZIMMERMAN to DX, SVG to CX, SVG to RCA 1985; PTCA/DO to mid RCA 06/20/04 Ischemic cardiomyopathy (Chronic) Benign essential hypertension (Chronic) Type II diabetes mellitus (Chronic) HLD (hyperlipidemia) (Chronic) AICD (automatic cardioverter/defibrillator) present (Chronic) implantation 04/21; gen change and pocket revision 03/17/13 Hospital Course and Treatment Imaging Results: Clinical Impression(s) from Imaging Studies Chest X-Ray 11/12/17 08:26 IMPRESSION: Elevation of the right hemidiaphragm with progressive infiltrates at the lung bases. Blunting of both costophrenic angles. Electronically Signed: Zi Rahman MD at 9:38 EDT Tel [phone], Service support , KUB X-Ray 11/12/17 08:26 IMPRESSION: Unremarkable bowel gas pattern. Electronically Signed: Zi Rahman MD at 9:37 EDT Tel [phone], Service support , Labs (Last 48 Hours) 11/20/17 11/22/17 11/22/17 Unknown 05:55 05:55 WBC 10.5 Pending RBC 4.09 L Pending Hgb 11.6 L Pending Hct 34.9 L Pending MCV 85.3 Pending MCH 28.4 Pending MCHC 33.2 Pending RDW 17.5 H Pending RDW Differential 54.4 H Pending Plt Count 218 Pending MPV 10.2 Immature Gran % (Auto) 1.200 H Neut % (Auto) 62.3 Pending Lymph % (Auto) 20.8 [place] % (Auto) 14.2 H Eos % (Auto) 1.4 Baso % (Auto) 0.1 Absolute Neuts (auto) 6.5 Pending Absolute Lymphs (auto) 2.18 Total Counted Not Reportable Pending Sodium Pending Potassium Pending Chloride Pending Carbon Dioxide Pending Anion Gap Pending BUN Pending Creatinine Pending Est GFR (MDRD) Af Amer Pending Est GFR (MDRD) Non-Af Pending BUN/Creatinine Ratio Pending Glucose Pending Calcium Pending Consultations 11/10/17 17:13 Consult: Onc/Wound/hvac design mechanical engineer Routine Comment: Reason for Consult:: L knee wound, not healing well, area of slough Comments:: aquacel dressing applied, sutures left in. Operations: None Procedures: None Summary of Care Provided: The patient is a 82 year old Male with below past medical history hospitalized for bilateral knee lacerations/cellulitis, complicated by acute kidney injury, admitted to TCU with debility, here for rehabilitation, strengthening, prior to discharge with spouse. Resident has not been eating, has not done well with therapy, he runs out of energy. 11/25/2017 Resident developed severe chest pain, EKG unchanged, but no relief from chest pain. Discharge to [facility] Emergency Department for evaluation and admission to hospital. Resident is not ready to accept end of life. Discharge Diet: No Restrictions Discharge Activity: Use Walker Weight Bearing Status: Weight bearing as tolerated Call your doctor if you observe: Fever of 101 or Higher, Inability to urinate, Inability to have a bowel movement, Shortness of breath, Chest pain, Uncontrolled pain Home Medications: Medications to take at Discharge Albuterol Aerosols [Ventolin Aerosols] 2.5 mg INHALATION Q6H PRN PRN 11/26/17 Aspirin [Aspirin, Baby] 81 mg PO DAILY@0800 11/26/17 Carvedilol [Coreg] 3.125 mg PO BID 11/26/17 Dronedarone Hydrochloride [Multaq] 400 mg PO BID 11/26/17 Fluticasone/Salmeterol [Fluticasone-Salmeterol 232-14] 1 each IH Q12H 11/26/17 Ipratropium/Albuterol Sulfate [Duoneb] 3 ml INHALATION Q6HWA.RT 11/26/17 Levothyroxine Sodium [Synthroid] 150 mcg PO SHEPHERD 11/26/17 Levothyroxine [Synthroid] 75 mcg PO MOTUWETHFRSA 11/26/17 Lidocaine [Lidoderm Patch] 1 patch TOPICAL DAILY 11/26/17 Menthol/Lanolin/Calamine/Znox [Calmoseptine Ointment] 1 applic TP TID 11/26/17 Metoclopramide [Reglan] 10 mg PO ACHS 11/26/17 Nutritional Supplement [David - ORANGE FLAVOR] 1 packet PO BIDCM 11/26/17 Pantoprazole Sodium [Protonix] 20 mg PO BID 11/26/17 Potassium Chloride [Klor-Con] 20 meq PO BIDCM 11/26/17 Pravastatin [Pravachol] 20 mg PO QHS 11/26/17 Sacubitril/Valsartan 24/26 mg [Entresto 24 mg-26 mg Tablet] 1 each PO BID 11/26/17 Tiotropium [place] [Spiriva 18 MCG] 1 puff INHALATION DAILY 11/26/17 Venlafaxine XR [Effexor Xr] 75 mg PO DAILY 11/26/17 Primary Care Physician: Anna Umana DO [Primary Care Provider] - Please follow up with your Primary Care Physician in: After hospitalization. Please Follow Up With: Pacer check Please Follow Up With: Echo Disposition: Acute care Hospital Minutes spent on discharge:: 15 Patient Condition:: Critical Medical Necessity - Tobacco Use Smoking Status: Former smoker Tobacco Use: Non-smoker Meaningful Use Info Meaningful Use Diagnoses (Choose all that apply): None applicable
--- NOTE | 2017-11-26 08:00 | DS.PCM_ITS ---
Discharge Date and Diagnosis - Problem List Patient Problems: Active and Suspected Problems (Last Reviewed 11/26/17 @ 01:32 by Mustapha Hess DO) Shock (Acute) Hyperkalemia (Acute) Leukocytosis (Acute) Date of Admission: 10/31/17 Date of Discharge: 11/26/17 - Primary Discharge Diagnosis Active and Suspected Problems (Last Reviewed 11/26/17 @ 01:32 by Mustapha Hess DO) Shock (Acute) Hyperkalemia (Acute) Leukocytosis (Acute) - Secondary Discharge Diagnosis Chronic Problems (Last Reviewed 11/26/17 @ 01:32 by Mustapha Hess DO) Obesity (Chronic) Deep vein thrombosis (Chronic) Bronchiectasis (Chronic) Chronic systolic heart failure (Chronic) Coronary artery disease (Chronic) Myocardial infarction (Chronic) Diabetes mellitus (Chronic) Hypertension (Chronic) Hypothyroidism (Chronic) Nausea (Chronic) GERD (gastroesophageal reflux disease) (Chronic) Depression (Chronic) Obesity (BMI 30.0-34.9) (Chronic) ALIVIA (obstructive sleep apnea) (Chronic) History of DVT (deep vein thrombosis) (Chronic) COPD (chronic obstructive pulmonary disease) (Chronic) CKD (chronic kidney disease) stage 3, GFR 30-59 ml/min (Chronic) jail (current) use of anticoagulants (Chronic) Atrial fibrillation (Chronic) Cardiac pacemaker in situ (Chronic) Ventricular tachycardia (Chronic) Chronic systolic congestive heart failure (Chronic) Presence of stent in coronary artery (Chronic ~06/20/04) PTCA/DO to mid RCA 06/20/04 H/O percutaneous transluminal coronary angioplasty (Chronic) 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) CABG x4-PABLITO to LAD, ZIMMERMAN to DX, SVG to CX, SVG to RCA 1985 Atherosclerotic heart disease of [place] coronary artery without angina pectoris (Chronic) CABG x4-PABLITO to LAD, ZIMMERMAN to DX, SVG to CX, SVG to RCA 1985; PTCA/DO to mid RCA 06/20/04 Ischemic cardiomyopathy (Chronic) Benign essential hypertension (Chronic) Type II diabetes mellitus (Chronic) HLD (hyperlipidemia) (Chronic) AICD (automatic cardioverter/defibrillator) present (Chronic) implantation 04/21; gen change and pocket revision 03/17/13 Hospital Course and Treatment Imaging Results: Clinical Impression(s) from Imaging Studies Chest X-Ray 11/12/17 08:26 IMPRESSION: Elevation of the right hemidiaphragm with progressive infiltrates at the lung bases. Blunting of both costophrenic angles. Electronically Signed: Zi Rahman MD at 9:38 EDT Tel [phone], Service support , KUB X-Ray 11/12/17 08:26 IMPRESSION: Unremarkable bowel gas pattern. Electronically Signed: Zi Rahman MD at 9:37 EDT Tel [phone], Service support , Labs (Last 48 Hours) 11/20/17 11/22/17 11/22/17 Unknown 05:55 05:55 WBC 10.5 Pending RBC 4.09 L Pending Hgb 11.6 L Pending Hct 34.9 L Pending MCV 85.3 Pending MCH 28.4 Pending MCHC 33.2 Pending RDW 17.5 H Pending RDW Differential 54.4 H Pending Plt Count 218 Pending MPV 10.2 Immature Gran % (Auto) 1.200 H Neut % (Auto) 62.3 Pending Lymph % (Auto) 20.8 [place] % (Auto) 14.2 H Eos % (Auto) 1.4 Baso % (Auto) 0.1 Absolute Neuts (auto) 6.5 Pending Absolute Lymphs (auto) 2.18 Total Counted Not Reportable Pending Sodium Pending Potassium Pending Chloride Pending Carbon Dioxide Pending Anion Gap Pending BUN Pending Creatinine Pending Est GFR (MDRD) Af Amer Pending Est GFR (MDRD) Non-Af Pending BUN/Creatinine Ratio Pending Glucose Pending Calcium Pending Consultations 11/10/17 17:13 Consult: Onc/Wound/instructor traffic safety Routine Comment: Reason for Consult:: L knee wound, not healing well, area of slough Comments:: aquacel dressing applied, sutures left in. Operations: None Procedures: None Summary of Care Provided: The patient is a 82 year old Male with below past medical history hospitalized for bilateral knee lacerations/cellulitis, complicated by acute kidney injury, admitted to TCU with debility, here for rehabilitation, strengthening, prior to discharge with spouse. Resident has not been eating, has not done well with therapy, he runs out of energy. 11/25/2017 Resident developed severe chest pain, EKG unchanged, but no relief from chest pain. Discharge to [facility] Emergency Department for evaluation and admission to hospital. Resident is not ready to accept end of life. Discharge Diet: No Restrictions Discharge Activity: Use Walker Weight Bearing Status: Weight bearing as tolerated Call your doctor if you observe: Fever of 101 or Higher, Inability to urinate, Inability to have a bowel movement, Shortness of breath, Chest pain, Uncontrolled pain Home Medications: Medications to take at Discharge Albuterol Aerosols [Ventolin Aerosols] 2.5 mg INHALATION Q6H PRN PRN 11/26/17 Aspirin [Aspirin, Baby] 81 mg PO DAILY@0800 11/26/17 Carvedilol [Coreg] 3.125 mg PO BID 11/26/17 Dronedarone Hydrochloride [Multaq] 400 mg PO BID 11/26/17 Fluticasone/Salmeterol [Fluticasone-Salmeterol 232-14] 1 each IH Q12H 11/26/17 Ipratropium/Albuterol Sulfate [Duoneb] 3 ml INHALATION Q6HWA.RT 11/26/17 Levothyroxine Sodium [Synthroid] 150 mcg PO SHEPHERD 11/26/17 Levothyroxine [Synthroid] 75 mcg PO MOTUWETHFRSA 11/26/17 Lidocaine [Lidoderm Patch] 1 patch TOPICAL DAILY 11/26/17 Menthol/Lanolin/Calamine/Znox [Calmoseptine Ointment] 1 applic TP TID 11/26/17 Metoclopramide [Reglan] 10 mg PO ACHS 11/26/17 Nutritional Supplement [David - ORANGE FLAVOR] 1 packet PO BIDCM 11/26/17 Pantoprazole Sodium [Protonix] 20 mg PO BID 11/26/17 Potassium Chloride [Klor-Con] 20 meq PO BIDCM 11/26/17 Pravastatin [Pravachol] 20 mg PO QHS 11/26/17 Sacubitril/Valsartan 24/26 mg [Entresto 24 mg-26 mg Tablet] 1 each PO BID Tiotropium [place] [Spiriva 18 MCG] 1 puff INHALATION DAILY 11/26/17 Venlafaxine XR [Effexor Xr] 75 mg PO DAILY 11/26/17 Primary Care Physician: Anna Umana DO [Primary Care Provider] - Please follow up with your Primary Care Physician in: After hospitalization. Please Follow Up With: Pacer check Please Follow Up With: Echo Disposition: Acute care Hospital Minutes spent on discharge:: 15 Patient Condition:: Critical Medical Necessity - Tobacco Use Smoking Status: Former smoker Tobacco Use: Non-smoker Meaningful Use Info Meaningful Use Diagnoses (Choose all that apply): None applicable
[2017-11-26 14:59] LABS: Anion Gap 9 (5-15); BUN 78 mg/dL (7-18); BUN/Creat Ratio 41.1 RATIO (10-20); Calcium,Total 9.4 mg/dL (8.5-10.1); Chloride 107 mmol/L (98-107); EST Glomerular Filtration Rate 36 mL/min (>60); Est Glom Filt Rate - Afr Amer 44 mL/min (>60); Estimated Creatinine Clearance 27.98 ml/min; Glucose 91 mg/dL (74-106); Sodium Level 142 mmol/L (136-145)
== END 2017-11-26 01:48 | disposition short-term general hospital (02) | DRG 948 ==
PROVIDERS: Nurse Practitioner Family; Admitting Provider Family Medicine Geriatric Medicine; Family Provider Internal Medicine; PCP Internal Medicine; Visit Provider Family Medicine Geriatric Medicine
DX: R53.81 Other malaise (principal); I50.22 Chronic systolic (congestive) heart failure; I13.0 Hypertensive heart and chronic kidney disease with heart failure and stage 1 through stage 4 chronic kidney disease, or unspecified chronic kidney disease; L03.116 Cellulitis of left lower limb; L03.115 Cellulitis of right lower limb; N17.9 Acute kidney failure, unspecified; S81.012D Laceration without foreign body, left knee, subsequent encounter; S81.011D Laceration without foreign body, right knee, subsequent encounter; E11.22 Type 2 diabetes mellitus with diabetic chronic kidney disease; F32.9 Major depressive disorder, single episode, unspecified; K21.9 Gastro-esophageal reflux disease without esophagitis; E03.9 Hypothyroidism, unspecified; B35.4 Tinea corporis; J44.9 Chronic obstructive pulmonary disease, unspecified; I48.2 Chronic atrial fibrillation; I25.10 Atherosclerotic heart disease of native coronary artery without angina pectoris; E66.9 Obesity, unspecified; G47.33 Obstructive sleep apnea (adult) (pediatric); E78.5 Hyperlipidemia, unspecified; S52.132D Displaced fracture of neck of left radius, subsequent encounter for closed fracture with routine healing; W19.XXXD Unspecified fall, subsequent encounter; N18.3 Chronic kidney disease, stage 3 (moderate); E87.6 Hypokalemia; Z79.899 Other long term (current) drug therapy; Z71.3 Dietary counseling and surveillance; Z68.35 Body mass index [BMI] 35.0-35.9, adult; Z86.718 Personal history of other venous thrombosis and embolism; I25.2 Old myocardial infarction; Z95.810 Presence of automatic (implantable) cardiac defibrillator; Z87.891 Personal history of nicotine dependence; Z95.1 Presence of aortocoronary bypass graft; Z85.46 Personal history of malignant neoplasm of prostate
CPT/HCPCS: 36415; 71046; 74018; 80048; 81001; 82962; 83880; 85025; 87070; 87077; 87086; 87088; 87186; 87205; 87493; 93005; 94640; 94667; 94668; 97110; 97112; 97116; 97162; 97165; 97530; 97535; 97802; J7040; A4216; J1940

== ENCOUNTER → 2017-11-20 11:03 | Outpatient (CLI) | payer SELFPAY ==
--- NOTE | 2017-11-20 12:48 | RAD_ITS ---
STUDY: X-RAY CHEST REASON FOR EXAM: Male, 82 years old. Shortness of breath, nausea/vomiting/diarrhea, epigastric pain. History of CHF. TECHNIQUE: AP and lateral views of the chest. COMPARISON: Frontal and lateral chest x-ray November 12, 2017. FINDINGS: The 2-lead right subclavian cardiac pacemaker/AICD is again noted. A MediPort device is also again seen at the medial anterior right chest wall, its catheter tip only faintly visualized, but grossly still in the superior vena cava. The lungs are not as fully expanded today. There are persistent platelike densities of atelectasis or scarring in the lung bases. [id number] elevation of right diaphragm unchanged. No new infiltrate. There is no demonstrated pleural abnormality. There is stable borderline to mild cardiac enlargement. Sternal cerclage wires and vascular clips are present from a prior sternotomy and coronary artery bypass graft procedure (CABG). Normal mediastinum and zhao. Normal visualized pulmonary arteries. There is stable atherosclerotic calcification of the aortic arch with tortuosity of the descending thoracic segment. There are stable diffuse degenerative changes of the visualized thoracic spine. Moderate loss of height of the L1 vertebra now suggested on the lateral view. 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 There is no demonstrated abnormality of the visualized soft tissue structures of the upper abdomen. RAD/Chest PA and Lateral IMPRESSION: 1. Prior median sternotomy and CABG. There is stable borderline to mild cardiac enlargement. No CHF. 2. Multilead cardiac pacemaker/AICD again noted. 3. Stable elevation of right diaphragm as well as stable platelike atelectasis bilateral lung bases. 4. Right chest wall MediPort also again noted. 5. Stable multilevel degenerative changes of the spine. Moderate loss of height of the L1 vertebra now suggested. Electronically Signed: Lui Contreras MD at 15:19 EDT , Service support ,
--- NOTE | 2017-11-20 12:48 | RAD_ITS ---
STUDY: X-RAY - ABDOMEN/PELVIS REASON FOR EXAM: Male, 82 years old. Nausea/vomiting/diarrhea, shortness of breath, epigastric pain. TECHNIQUE: Three AP supine views of the abdomen and pelvis. COMPARISON: 5 films of the abdomen and pelvis November 12, 2017. FINDINGS: There is stable elevation of the right diaphragm. Platelike atelectasis again noted in the lung bases. Cardiac pacemaker/AICD leads again noted in the borderline enlarged heart. There is a nonspecific pattern of gas in nondistended small bowel and colon. There is no demonstrated free abdominal air. Calcified granulomata noted in the spleen. The visualized liver and kidneys are grossly normal in size and morphology. There is stable aortic and iliofemoral atherosclerotic calcific plaquing. Numerous surgical clips again project in the pelvic soft tissues and left lower quadrant as well as in the soft tissues of the upper left thigh. There are stable diffuse degenerative changes of the visualized lumbar spine. RAD/Abdomen Single View IMPRESSION: 1. Nonspecific bowel gas pattern. 2. Stable postsurgical changes in the left lower quadrant/pelvis. 3. Stable elevation of the right diaphragm is well stable platelike atelectasis in the lung bases. 4. Aortoiliac atherosclerotic plaquing again noted. Electronically Signed: Lui Contreras MD at 15:22 EDT , Service support ,
== END ==
PROVIDERS: Family Provider Internal Medicine; PCP Internal Medicine; Visit Provider Internal Medicine Cardiovascular Disease
DX: R06.02 Shortness of breath (principal); R11.2 Nausea with vomiting, unspecified; R19.7 Diarrhea, unspecified; R10.13 Epigastric pain
CPT/HCPCS: 71046; 74018; 84484

== ENCOUNTER 2017-11-25 22:19 | Inpatient (IN) | payer MEDICARE, OTHER, SELFPAY ==
[2017-11-25 22:20] VITALS: BP 51/38; PULSE 79; RESP 16; TEMP 36.9; O2SAT 91; BMI 33.7
[2017-11-25 22:26] VITALS: BP 75/48; PULSE 78; RESP 16; O2SAT 94
--- NOTE | 2017-11-25 22:46 | EKG12_ITS ---
Test Reason : Blood Pressure : / mmHG Vent. Rate : 077 BPM Atrial Rate : 077 BPM P-R Int : 180 ms QRS Dur : 118 ms QT Int : 424 ms P-R-T Axes : 012 -15 120 degrees QTc Int : 479 ms Sinus rhythm with occasional Premature ventricular complexes and Fusion complexes Inferior infarct , age undetermined Abnormal ECG When compared with ECG of 29-OCT-2017 22:57, MANUAL COMPARISON REQUIRED, DATA IS UNCONFIRMED Confirmed by WOLF LEONARD, DEBRA ([id number]), acquisitions editor PUNEET VELASCO ([id number]) on 11/27/2017 5:13:01 PM Referred By: Mikael Parker Confirmed By:DEBRA BLOOM MD
--- NOTE | 2017-11-25 22:55 | RAD_ITS ---
STUDY: X-RAY CHEST REASON FOR EXAM: Male, 82 years old. Chest pain TECHNIQUE: Single frontal view of the chest. COMPARISON: November 20, 2017 FINDINGS: There is a bipolar AICD on the right there is a new MediPort on the right appears looped in the neck. The tip is not well visualized. Sternotomy wires and mediastinal clips are again noted. No pneumothorax. Left upper lobe airspace disease is new. Subsegmental atelectasis left base. Small right effusion. Mild cardiomegaly. Normal mediastinum and zhao. Normal visualized pulmonary arteries. Normal visualized aortic arch and descending thoracic aorta. Normal visualized thoracic spine. Normal visualized ribs, clavicles, and shoulders. There is no demonstrated abnormality of the visualized soft tissue structures of the upper abdomen. RAD/Chest 1 View (Portable) IMPRESSION: New airspace disease on the left. MediPort catheter on the right appears looped in the neck. Tip is not clearly identified due to overlapping AICD leads. Electronically Signed: Alexandr Henriquez MD at 23:20 EDT , Service support ,
[2017-11-25 23:01] LABS: International Normalized Ratio 1.1
[2017-11-25 23:02] LABS: Partial Thromboplast Time 36.4 Seconds (24.1-36.2)
[2017-11-25 23:06] VITALS: BP 57/40; PULSE 75; RESP 16; O2SAT 92
[2017-11-25 23:14] VITALS: BP 62/38
[2017-11-25 23:17] LABS: ALB/GLOB Ratio 0.6 RATIO (0.9-2.4); AST(SGOT) 44 U/L (15-37); Alanine Aminotransfer ALT/SGPT 33 U/L (16-61); Albumin, Serum 1.8 g/dL (3.2-5.0); Alkaline Phosphatase 229 U/L (45-117); Anion Gap 8 (5-15); BUN 65 mg/dL (7-18); BUN/Creat Ratio 32.5 RATIO (10-20); Calcium,Total 8.7 mg/dL (8.5-10.1); Chloride 104 mmol/L (98-107); EST Glomerular Filtration Rate 34 mL/min (>60); Est Glom Filt Rate - Afr Amer 42 mL/min (>60); Globulin 2.8 g/dL (2.2-4.2); Glucose 67 mg/dL (74-106); Potassium 5.7 mmol/L (3.5-5.1); Protein, Total 4.6 g/dL (6.4-8.2); Sodium Level 139 mmol/L (136-145); Thyroid Stim Hormone (TSH) 9.58 uIU/mL (0.358-3.74)
[2017-11-25 23:35] VITALS: TEMP 36.7
[2017-11-25 23:37] LABS: Lactic Acid 1.5 mmol/L (0.4-2.0)
[2017-11-25 23:38] LABS: Mucous, Urine 0 SEEN /hpf (<or=2+); Red Blood Cells-Urine 0 SEEN /hpf (0-5)
[2017-11-25 23:45] LABS: Color, Urine Yellow (Yellow); Glucose, Dipstick Normal (Normal); Ketone-Dipstick Negative (Negative); Leukocyte Esterase-Dipstick 25 /ul (Negative); Nitrite-Dipstick Negative (Negative); Occult Blood-Urine Negative /ul (Negative); Protein-Dipstick Negative (Negative); Urine Bilirubin Dipstick Negative (Negative); Urine Clarity Clear (Clear); Urine Urobilinogen Normal (Normal)
[2017-11-25 23:52] LABS: Amorphous Sediment 1+; Bacteria RARE /hpf (None Seen); Squamous Epithelial Cells - UA 0-5 SEEN /hpf (0-5); White Blood Cells 0-5 SEEN /hpf (0-5)
[2017-11-25] MEDS: Piperacil/Tazobactam 3.375 GM/50 ML ML IV (23:57)
[2017-11-25 23:59] LABS: Differential Indicated SCAN CRITERIA MET; Hematocrit 34.5 % (40-54); Hemoglobin 11.2 g/dl (13.0-16.5); Lymphocyte % 13.4 % (19-41); Mean Corp Hgb Conc 32.5 g/gl (32-36); Mean Corpuscular Hgb 28.9 pg (27.0-32.0); Mean Corpuscular Volume 89.1 fL (80-94); Mean Platelet Vol. 10.5 fl (6.2-12.0); Monocyte% 7.6 % (0-10); POSITIVE COUNT NO; POSITIVE DIFFERENTIAL NO; POSITIVE MORPHOLOGY YES; Platelet Count 157 K/mm3 (150-450); RBC Distribution Width CV 18.6 % (11.6-14.6); RBC Distribution Width SD 55.6 fl (35.1-43.9); Red Blood Count 3.87 M/mm3 (4.6-6.2); White Blood Count 17.2 K/mm3 (4.4-11.0)
[2017-11-26] VITALS (45 sets, daily range): BP systolic 65–107; BP diastolic 39–93; PULSE 61–78; RESP 13–24; TEMP 36.2–36.7; O2SAT 93–100; BMI 33.3
[2017-11-26] LABS: Absolute Neutrophil Count 13.4 X10^3/uL (2.0-7.7); Basophil# 0.01 X10^3/uL; Basophil% 0.1 % (0-1); Eosinophil# 0.06 X10^3/uL; Eosinophils% 0.3 % (0-5); Monocyte# 1.31 X10^3/uL; Neutrophil # 13.37 X10^3/uL (2.7-7.7)
[2017-11-26 00:01] LABS: Differential Comment SCANNED; Hypochromasia 3+; Target Cells 2+
--- NOTE | 2017-11-26 00:51 | ED.DCSUM_ITS ---
- ER Visit Summary Date of Service: 11/26/17 Chief Complaint: Dizziness and chest pain History of Present Illness: The patient is a 82 M presenting for evaluation secondary to lightheadedness and chest pain. Patient is currently in the rehab unit rehabbing after a fall. He has an underlying history of congestive heart failure with an ejection fraction 25%, chronic kidney disease, diabetes hypertension high cholesterol COPD DVT and hypothyroidism. Apparently the patient started to complain that he was having some difficulty with seeing the television today because he was feeling lightheaded. When he started to complain of having some chest pain. He does endorse that he has been having some shortness of breath and cough as well as having some nausea vomiting and diarrhea. He endorses that he is having some bilateral paresthesias in his hands. He denies any fevers. Physical Examination: Vital signs are notable for a blood pressure of 75/48. Well-nourished male sitting in the Trendelenburg position but otherwise not in acute physiologic distress. Moist mucous membranes. No JVD. Heart sounds are distant, there is a port present on the patient's right anterior chest lung sounds showed some evidence of rhonchi and wheezes. Abdomen was soft and nontender. +1 bilaterally symmetric pitting edema of the lower extremities. Patient has chronic changes to the left hand associated with finger amputations. He has multiple healing chronic wounds on his legs. He is alert and oriented. Test Results: EKG demonstrates a first-degree block with sinus rate 79 and old inferior Q waves. CBC shows leukocytosis 17, chemistry shows chronic kidney disease creatinine to BUN is 65 elevated potassium of 5.7 urinalysis negative troponin 0 0.02 lactic acid 1.5 TSH elevated at 9.5 chest x-ray shows left lower lobe infiltrate. Emergency Department Course and Treatment: Patient presented with hypotension and chest pain and dizziness. He has severe CHF, so his fluid resuscitation was done judiciously with separate boluses of 500 cc of normal saline. Upon recognition of his left lower lobe infiltrate he was given vancomycin and Zosyn as this is likely hospital-acquired. Patient does have an elevated TSH but I do not believe that he has myxedema coma at this point. I believe the patient requires ICU admission at this point. I discussed this with hospitalist. Patient will be admitted to the ICU. Disposition: Admission Impression: 1. Healthcare associated pneumonia 2. Septic shock 3. Congestive heart failure 4. Chronic kidney disease Critical care time 45 minutes This note was generated with [employer] dictation software. It may contain incorrect words, spelling, and punctuation that were not noted in review of the chart prior to signing ED Disposition - Plan for ED Patient: Chief Complaint: Chest Pain Referrals: Anna Umana DO [Primary Care Provider] -
--- NOTE | 2017-11-26 01:28 | PCM.HP.STD ---
Problem List (1) Shock Status: Acute (2) Hyperkalemia Status: Acute (3) Leukocytosis Status: Acute History of Present Illness Date of Admission: 11/26/17 Chief Complaint: weakness The patient is a 82 year old M who is a poor historian and not forthcoming in providing really any details but it was just feeling weak and brought to the emergency room. Emergency room patient was noted to be Lotensin with systolic blood pressure into the 60s. Patient received only 1 L of IV fluids given his history of heart failure. Patient was put in a Trendelenburg position to help with the pressure and patient's big complaint is when he can get out of position and his biggest concern was how he is going to have a bowel movement on the bedpan and position and focus is not on his blood pressure being low treatment for that but on these subtle issues. And as mentioned previously patient was not forthcoming in any detail and regards to any symptoms that may have been ongoing and his was not of much assistance in regards to other details either. Patient is currently residing in the transitional care unit since October 31 after a fall. [] Past Medical History Past Medical History (Chronic Problems): Chronic Problems (Last Reviewed 11/05/17 @ 13:33 by Joelle Vega) Obesity (Chronic) Deep vein thrombosis (Chronic) Bronchiectasis (Chronic) Chronic systolic heart failure (Chronic) Coronary artery disease (Chronic) Myocardial infarction (Chronic) Diabetes mellitus (Chronic) Hypertension (Chronic) Hypothyroidism (Chronic) Nausea (Chronic) GERD (gastroesophageal reflux disease) (Chronic) Depression (Chronic) Obesity (BMI 30.0-34.9) (Chronic) ALIVIA (obstructive sleep apnea) (Chronic) History of DVT (deep vein thrombosis) (Chronic) COPD (chronic obstructive pulmonary disease) (Chronic) CKD (chronic kidney disease) stage 3, GFR 30-59 ml/min (Chronic) USP (current) use of anticoagulants (Chronic) Atrial fibrillation (Chronic) Cardiac pacemaker in situ (Chronic) Ventricular tachycardia (Chronic) Chronic systolic congestive heart failure (Chronic) Presence of stent in coronary artery (Chronic ~06/20/04) PTCA/DO to mid RCA 06/20/04 H/O percutaneous transluminal coronary angioplasty (Chronic) 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) CABG x4-PABLITO to LAD, ZIMMERMAN to DX, SVG to CX, SVG to RCA 1985 Atherosclerotic heart disease of [place] coronary artery without angina pectoris (Chronic) CABG x4-PABLITO to LAD, ZIMMERMAN to DX, SVG to CX, SVG to RCA 1985; PTCA/DO to mid RCA 06/20/04 Ischemic cardiomyopathy (Chronic) Benign essential hypertension (Chronic) Type II diabetes mellitus (Chronic) HLD (hyperlipidemia) (Chronic) AICD (automatic cardioverter/defibrillator) present (Chronic) implantation 04/21; gen change and pocket revision 03/17/13 Medical History: Medical History (Last Reviewed 11/26/17 @ 01:32 by Mustapha Hess DO) Old myocardial infarction (Chronic) I25.2 Atherosclerotic heart disease of [place] coronary artery without angina pectoris (Chronic) I25.10 CABG x4-PABLITO to LAD, ZIMMERMAN to DX, SVG to CX, SVG to RCA 1985; PTCA/DO to mid RCA 06/20/04 Ischemic cardiomyopathy (Chronic) I25.5 Benign essential hypertension (Chronic) I10 Type II diabetes mellitus (Chronic) E11.9 HLD (hyperlipidemia) (Chronic) E78.5 AICD (automatic cardioverter/defibrillator) present (Chronic) Z95.810 implantation 04/21; gen change and pocket revision 03/17/13 Anemia of chronic renal failure, stage 3 (moderate) N18.3, D63.1 COPD (chronic obstructive pulmonary disease) J44.9 Hiatal hernia with gastroesophageal reflux K21.9, K44.9 History of DVT (deep vein thrombosis) Z86.718 History of prostate cancer Z85.46 Hypothyroidism E03.9 ALIVIA (obstructive sleep apnea) G47.33 Osteomyelitis M86.9 Peripheral vascular disease I73.9 Pulmonary fibrosis J84.10 Occlusion of left subclavian vein I82.B12 port placement rt side Acute bronchitis (Inactive) J20.9 Acute exacerbation of chronic obstructive pulmonary disease (Inactive) J44.1 Anemia of chronic renal failure, stage 3 (moderate) (Inactive) N18.3, D63.1 Aspiration pneumonia (Inactive) J69.0 CAD (coronary artery disease) (Inactive) I25.10 s/p cabg ef=40% negative stress /14 COPD (chronic obstructive pulmonary disease) (Inactive) J44.9 Chronic CHF (Inactive) I50.9 ef=40% Chronic anticoagulation (Inactive) Z79.01 Hiatal hernia with gastroesophageal reflux (Inactive) K21.9, K44.9 History of DVT (deep vein thrombosis) (Inactive) Z86.718 on coumadin History of prostate cancer (Inactive) Hypothyroidism (Inactive) E03.9 ALIVIA (obstructive sleep apnea) (Inactive) G47.33 PVD (peripheral vascular disease) (Inactive) I73.9 Subtherapeutic international normalized ratio (INR) (Inactive) R79.1 Allergies fexofenadine Adverse Reaction (Severe, Verified 11/05/17 13:24) Cough prednisone Adverse Reaction (Severe, Verified 11/05/17 13:24) Unknown oxycodone [From Percocet] Adverse Reaction (Unknown, Verified 11/05/17 13:24) Unknown amiodarone Adverse Reaction (Verified 11/05/17 13:24) affects his lungs/breathing azithromycin Adverse Reaction (Verified 11/05/17 13:24) Other PATIENT STATES HE LOST HIS HEARING AND HIS HAIR levofloxacin [From Levaquin] Adverse Reaction (Verified 11/05/17 13:24) Other linezolid [From Zyvox] Adverse Reaction (Verified 11/05/17 13:24) decreased platelets morphine Adverse Reaction (Verified 11/05/17 13:24) agitated tramadol Adverse Reaction (Verified 11/05/17 13:24) interferes with another medication he is on Home Medications: Ambulatory Orders Medication Instructions Recorded Albuterol Aerosols [Ventolin 2.5 mg INHALATION Q6H PRN PRN 11/26/17 Aerosols] Aspirin [Aspirin, Baby] 81 mg PO DAILY@0800 11/26/17 Carvedilol [Coreg] 3.125 mg PO BID 11/26/17 Dronedarone Hydrochloride [Multaq] 400 mg PO BID 11/26/17 Fluticasone/Salmeterol 1 each IH Q12H 11/26/17 [Fluticasone-Salmeterol 232-14] Ipratropium/Albuterol Sulfate 3 ml INHALATION Q6HWA.RT 11/26/17 [Duoneb] Levothyroxine Sodium [Synthroid] 150 mcg PO SHEPHERD 11/26/17 Levothyroxine [Synthroid] 75 mcg PO MOTUWETHFRSA 11/26/17 Lidocaine [Lidoderm Patch] 1 patch TOPICAL DAILY 11/26/17 Menthol/Lanolin/Calamine/Znox 1 applic TP TID 11/26/17 [Calmoseptine Ointment] Metoclopramide [Reglan] 10 mg PO ACHS 11/26/17 Nutritional Supplement [David - 1 packet PO BIDCM 11/26/17 ORANGE FLAVOR] Pantoprazole Sodium [Protonix] 20 mg PO BID 11/26/17 Potassium Chloride [Klor-Con] 20 meq PO BIDCM 11/26/17 Pravastatin [Pravachol] 20 mg PO QHS 11/26/17 Sacubitril/Valsartan 24/26 mg 1 each PO BID 11/26/17 [Entresto 24 mg-26 mg Tablet] Tiotropium [place] [Spiriva 18 MCG] 1 puff INHALATION DAILY 11/26/17 Venlafaxine XR [Effexor Xr] 75 mg PO DAILY 11/26/17 Surgical History: Surgical History (Last Reviewed 11/26/17 @ 01:33 by Mustapha Hess DO) H/O percutaneous transluminal coronary angioplasty (Chronic) Z98.61 Aortocoronary bypass status (Chronic) Onset Date: ~1985 Z95.1 CABG x4-PABLITO to LAD, ZIMMERMAN to DX, SVG to CX, SVG to RCA 1985 History of total knee replacement Z96.659 bilateral History of prostatectomy Z98.890, Z90.79 History of total knee replacement (Inactive) Z96.659 Left Hx of CABG (Inactive) Surgical History: coronary bypass surgery, pacemaker implantation, total knee arthroplasty - BL, - - 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 Jennings, PCI/stents. Psychiatric History: No pertinent psych hx Smoking Status: Former smoker - *Family History Maternal Family History: Family History (Last Reviewed 11/26/17 @ 01:33 by Mustapha Hess DO) Brother Heart disease History Items: No pertinent history Paternal Family History: Family History (Last Reviewed 11/26/17 @ 01:33 by Mustapha Hess DO) Brother Heart disease History Items: No pertinent history Review of Systems Constitutional: Denies: Chills, Fever, Weight Change Eyes: Reports: Blurred vision - Occurred on the 12th. Patient does not know time nor the time around approximate time this occurred today was occurring all day or not and unspecified is specifically what his visual changes are. Does state that he has better ability to see larger print and smaller print but unclear if this is new or old. HEENT: Denies: Head Aches, Sinus Congestion, Sinus Drainage Cardiovascular: Denies: Chest Pain, Palpitations Respiratory: Denies: Cough, Shortness of breath at rest, Sputum production Gastrointestinal: Denies: Abdominal Pain, Nausea, Vomiting Genitourinary: Denies: Dysuria Musculoskeletal: Denies: Joint Pain, Joint Tenderness Skin: Denies: Rash, Wounds Neurological: Denies: Numbness, Tingling, Focal weakness Psychiatric: Denies: Anxiety, Depression Endocrine: Denies: Change in Body Habitus, Heat/ Cold Intolerance Hematologic/ Lymphatic: Denies: Easy Bruising, Easy Bleeding, Hx of blood clot Comment: Otherwise all review systems are negative except for in the HPI and reviewed symptoms. VTE Information - Inpt Only VTE Present on Admission: No VTE Mechan Device Prophylaxis: SCD's VTE Pharm Prophylaxis ordered?: Yes Patient Problems: Active and Suspected Problems (Last Reviewed 11/05/17 @ 13:33 by Joelle Vega) Fall (Acute) Left radial fracture (Acute) Knee laceration (Acute) Cellulitis (Acute) Acute on chronic kidney failure (Acute) Shock (Acute) Hyperkalemia (Acute) Leukocytosis (Acute) - Physical Exam General: Alert, - - Reluctant to answer questions at time and refused to answer questions at time. Very cantankerous and angry. HEENT: Atraumatic, PERRLA, EOMI, Normocephalic Oral: Moist Mucosa, No Gingival or Mucosal Lesions/ Ulcerations Neck: No Nodes, Thyroid Normal Size and Texture Lungs: Clear to auscultation, Normal air movement, No rhonchi, No wheeze Cardiovascular: Regular rate, Regular Rhythm, Normal S1, Normal S2 Abdomen: Bowel Sounds Present, Soft, Non Tender, Non-Distended, No Hepato-splenomegaly Extremities: No edema, No Calf Tenderness Skin: No rashes, No breakdown Musculoskeletal: No Tenderness to Palpation of Joints or Extremities, No Muscle Wasting Neurological: Motor Exam 5/5 strength throughout, - - No clonus Psych/Mental Status: Flat Affect - Does not establish eye contact. Vital Signs Temp Pulse Resp BP Pulse Ox 36.7 C 69 16 70/52 L 94 11/25/17 23:35 06/13/18 01:07 11/26/17 01:07 11/26/17 01:07 11/26/17 01:07 Oxygen Flow Rate (L/min) 3 Oxygen Delivery Method Nasal Cannula Laboratory Results - last 24 hr 11/25/17 11/25/17 11/25/17 22:25 22:25 22:25 WBC 17.2 H RBC 3.87 L Hgb 11.2 L Hct 34.5 L MCV 89.1 MCH 28.9 MCHC 32.5 RDW 18.6 H RDW Differential 55.6 H Plt Count 157 MPV 10.5 Immature Gran % (Auto) 0.600 Neut % (Auto) 78.0 H Lymph % (Auto) 13.4 L [place] % (Auto) 7.6 Eos % (Auto) 0.3 Baso % (Auto) 0.1 Absolute Neuts (auto) 13.4 H Absolute Lymphs (auto) 2.30 Total Counted Not Reportable Differential Comment SCANNED Hypochromasia 3+ Target Cells 2+ PT 14.0 INR 1.1 APTT 36.4 H Sodium 139 Potassium 5.7 H Chloride 104 Carbon Dioxide 27.0 Anion Gap 8 BUN 65 H Creatinine 2.00 H Est GFR (MDRD) Af Amer 42 L Est GFR (MDRD) Non-Af 34 L BUN/Creatinine Ratio 32.5 H Glucose 67 L Lactic Acid Calcium 8.7 Total Bilirubin 0.60 AST 44 H ALT 33 Alkaline Phosphatase 229 H Troponin I 0.021 Total Protein 4.6 L Albumin 1.8 L Globulin 2.8 Albumin/Globulin Ratio 0.6 L TSH 9.58 H Urine Color Urine Clarity Urine pH Ur Specific [place] Urine Protein Urine Glucose (UA) Urine Ketones Urine Occult Blood Urine Nitrite Urine Bilirubin Urine Urobilinogen Ur Leukocyte Esterase Urine RBC Urine WBC Ur Squamous Epith Cells Amorphous Sediment Urine Bacteria Urine Mucus 11/25/17 11/25/17 23:00 23:30 WBC RBC Hgb Hct MCV MCH MCHC RDW RDW Differential Plt Count MPV Immature Gran % (Auto) Neut % (Auto) Lymph % (Auto) [place] % (Auto) Eos % (Auto) Baso % (Auto) Absolute Neuts (auto) Absolute Lymphs (auto) Total Counted Differential Comment Hypochromasia Target Cells PT INR APTT Sodium Potassium Chloride Carbon Dioxide Anion Gap BUN Creatinine Est GFR (MDRD) Af Amer Est GFR (MDRD) Non-Af BUN/Creatinine Ratio Glucose Lactic Acid 1.5 Calcium Total Bilirubin AST ALT Alkaline Phosphatase Troponin I Total Protein Albumin Globulin Albumin/Globulin Ratio TSH Urine Color Yellow Urine Clarity Clear Urine pH 5.0 Ur Specific [place] 1.010 Urine Protein Negative Urine Glucose (UA) Normal Urine Ketones Negative Urine Occult Blood Negative Urine Nitrite Negative Urine Bilirubin Negative Urine Urobilinogen Normal Ur Leukocyte Esterase 25 H Urine RBC 0 SEEN Urine WBC 0-5 SEEN Ur Squamous Epith Cells 0-5 SEEN Amorphous Sediment 1+ Urine Bacteria RARE Urine Mucus 0 SEEN Chest x-ray personally reviewed and shows poor respiratory effort. Chronically elevated right hemidiaphragm as compared to the left. I do not appreciate any infiltrate. Assessment/Plan All Active Problems (Last Reviewed 11/05/17 @ 13:33 by Joelle Vega) FALL on knees and elbow (Acute) BILA KNEES LACERATION AND BLEEDING (Acute) gisel ON ckd (Acute) Fall (Acute) Left radial fracture (Acute) Knee laceration (Acute) Cellulitis (Acute) Acute on chronic kidney failure (Acute) Shock (Acute) Hyperkalemia (Acute) Leukocytosis (Acute) Left leg cellulitis (Acute) Unspecified open wound, left foot, initial encounter (Acute) Avulsion of skin of left hand (Resolved) Avulsion of skin of right forearm (Resolved) Avulsion of skin of right hand (Resolved) History of subdural hemorrhage (Resolved) Hypotension (Resolved) Rhinovirus (Resolved) Supratherapeutic INR (Resolved) 1. Shock My concern is that this may be more related with hypovolemia. Other possibilities could be cardiogenic. I do not feel that this is septic shock and a do not feel the patient actually has pneumonia. Patient received 1 L of IV fluids in the emergency room. I am going to give the patient another liter of IV fluids and reassess. If patient continues to be hypotensive than patient will require pressor therapy. Patient does have a port in place and we should be able to use that for administration of pressor agents but I did inform the patient and his if that were not available or if it became compromise that he would require a central venous catheter likely into his neck. 2. Hyperkalemia Prior related with supplementation with potassium patient's last potassium was on the seventh and was normal at 3.7. Does not appear to be having a hemolyzed sample at this time. I will give the patient IV fluids and will reassess in the morning 3. Heart failure with reduced ejection fraction Patient appears compensated at this time I will put hold parameters on his Coreg which is at the lowest dose possible anyways No DILAN inhibitor nor angiotensin receptor pramod given the patient's hypotension Ejection fraction of 20-25% from echocardiogram on 06/11/2016 I will repeat a echocardiogram why he is here to see if there is been any change in interim. That echocardiogram they have from 2016 was from [place], I am unsure the patient has an any more recent echocardiograms not in our system. 4. Hypothyroidism Patient had a report that his Synthroid was changed what appears to be the same dosing that he was on when he was discharged on 31 October TSH was 9 I will check free T4 and free T3 levels and if those are low low then probably increasing his Synthroid he takes every day but Friday up to 100 from 75 would be appropriate. 5. Chronic kidney disease stage III Patient when he was discharged on October 31 had a creatinine 1.37 and now it is 2 Will give patient IV fluids and reevaluate 6. Advanced care planning: Patient wishes to be full CODE STATUS and wishes to be intubated in the event of respiratory arrest and have a PEG tube placed in the event of dysphagia. Dr. Parker was concerned that the patient may actually be dying from his note from November 24. 7. DVT prophylaxis with heparin and SCDs Code Visit Inpatient E&M: 37302 Init Hosp L3
--- NOTE | 2017-11-26 01:35 | ECHOCS_ITS ---
Reason For Study: CHF Procedure This was a 2D Doppler, Color Flow transthoracic echocardiogram. The study was technically difficult. Contrast injection was performed. Exam performed portable in ICU/CCU. Left Ventricle Based upon the 2D echocardiographic and contrast enhanced images obtained, not all LV wall segments are well visualized, however, based upon the images obtained there appears to be decreased LV systolic function. The estimated ejection fraction is 30 %. There is evidence of diastolic dysfunction. Right Ventricle Normal RV size. ICD or pacer leads identified within the right ventricle. Normal systolic function. Atria Normal left atrium. Normal right atrium. ICD or pacer leads identified within the right atrium. No doppler evidence for ASD. Mitral Valve There is no mitral annular calcification. Normal mitral valve. Trivial mitral valve insufficiency. Tricuspid Valve Normal tricuspid valve. Trivial tricuspid valve insufficiency. Right ventricular systolic pressure estimated to be 40 mmHg. Aortic Valve The aortic valve is not well visualized. Pulmonic Valve The pulmonic valve is not well visualized. Great Vessels Normal sized aortic root. Pericardium/Pleural No pericardial effusion. Medication Diluted definity 4ml given slow IV push to enhance endocardial definition. MMode/2D Measurements & Calculations Ao root diam: 2.9 cm LAV(MOD-sp4): 35.7 ml LA A4 area: 16.1 cm2 Time Measurements MV dec time: 0.24 sec Doppler Measurements & Calculations MV E max denis: 27.6 cm/sec Lat Peak E' Denis: 5.7 cm/sec Med Peak E' Denis: 5.0 cm/sec E/E' lat: 4.8 E/E' med: 5.5 MV V2 max: 83.3 cm/sec MV P1/2t max denis: 39.7 cm/sec Ao V2 max: 126.7 cm/sec MV max P.8 mmHg MV P1/2t: 73.2 msec Ao max P.4 mmHg MV V2 mean: 36.8 cm/sec MV dec slope: 158.8 cm/sec2 MV mean P.70 mmHg MVA(P1/2t): 3.0 cm2 MV V2 VTI: 16.4 cm LV V1 max: 97.8 cm/sec PA V2 max: 93.4 cm/sec TR max denis: 281.7 cm/sec LV V1 max P.8 mmHg TR max P.7 mmHg Interpretation Summary The study was technically difficult. Contrast injection was performed. Based upon the 2D echocardiographic and contrast enhanced images obtained, not all LV wall segments are well visualized, however, based upon the images obtained there appears to be decreased LV systolic function. The estimated ejection fraction is 30 %. Trivial mitral valve insufficiency. Trivial tricuspid valve insufficiency. Right ventricular systolic pressure estimated to be 40 mmHg. There is evidence of diastolic dysfunction. ICD or pacer leads identified within the right atrium ICD or pacer leads identified within the right ventricle. 2D echocardiographic and contrast enhanced images obtained demonstrate a large echolucency in the left ventricular apical area appearing c/w a filling defect appearing c/w a left ventricular apical thrombus. Ordering Physician: Mustapha Hess Referring Physician: Tim Nicholson Chi Performed By: Thang Carmona RCS
--- NOTE | 2017-11-26 01:46 | HP.PCM_ITS ---
Problem List (1) Shock Status: Acute (2) Hyperkalemia Status: Acute (3) Leukocytosis Status: Acute History of Present Illness Date of Admission: 11/26/17 Chief Complaint: weakness The patient is a 82 year old M who is a poor historian and not forthcoming in providing really any details but it was just feeling weak and brought to the emergency room. Emergency room patient was noted to be Lotensin with systolic blood pressure into the 60s. Patient received only 1 L of IV fluids given his history of heart failure. Patient was put in a Trendelenburg position to help with the pressure and patient's big complaint is when he can get out of position and his biggest concern was how he is going to have a bowel movement on the bedpan and position and focus is not on his blood pressure being low treatment for that but on these subtle issues. And as mentioned previously patient was not forthcoming in any detail and regards to any symptoms that may have been ongoing and his was not of much assistance in regards to other details either. Patient is currently residing in the transitional care unit since October 31 after a fall. [] Past Medical History Past Medical History (Chronic Problems): Chronic Problems (Last Reviewed 11/05/17 @ 13:33 by Joelle Vega) Obesity (Chronic) Deep vein thrombosis (Chronic) Bronchiectasis (Chronic) Chronic systolic heart failure (Chronic) Coronary artery disease (Chronic) Myocardial infarction (Chronic) Diabetes mellitus (Chronic) Hypertension (Chronic) Hypothyroidism (Chronic) Nausea (Chronic) GERD (gastroesophageal reflux disease) (Chronic) Depression (Chronic) Obesity (BMI 30.0-34.9) (Chronic) ALIVIA (obstructive sleep apnea) (Chronic) History of DVT (deep vein thrombosis) (Chronic) COPD (chronic obstructive pulmonary disease) (Chronic) CKD (chronic kidney disease) stage 3, GFR 30-59 ml/min (Chronic) snf (current) use of anticoagulants (Chronic) Atrial fibrillation (Chronic) Cardiac pacemaker in situ (Chronic) Ventricular tachycardia (Chronic) Chronic systolic congestive heart failure (Chronic) Presence of stent in coronary artery (Chronic ~06/20/04) PTCA/DO to mid RCA 06/20/04 H/O percutaneous transluminal coronary angioplasty (Chronic) 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) CABG x4-PABLITO to LAD, ZIMMERMAN to DX, SVG to CX, SVG to RCA 1985 Atherosclerotic heart disease of [place] coronary artery without angina pectoris (Chronic) CABG x4-PABLITO to LAD, ZIMMERMAN to DX, SVG to CX, SVG to RCA 1985; PTCA/DO to mid RCA 06/20/04 Ischemic cardiomyopathy (Chronic) Benign essential hypertension (Chronic) Type II diabetes mellitus (Chronic) HLD (hyperlipidemia) (Chronic) AICD (automatic cardioverter/defibrillator) present (Chronic) implantation 04/21; gen change and pocket revision 03/17/13 Medical History: Medical History (Last Reviewed 11/26/17 @ 01:32 by Mustapha Hess DO) Old myocardial infarction (Chronic) I25.2 Atherosclerotic heart disease of [place] coronary artery without angina pectoris (Chronic) I25.10 CABG x4-PABLITO to LAD, ZIMMERMAN to DX, SVG to CX, SVG to RCA 1985; PTCA/DO to mid RCA 06/20/04 Ischemic cardiomyopathy (Chronic) I25.5 Benign essential hypertension (Chronic) I10 Type II diabetes mellitus (Chronic) E11.9 HLD (hyperlipidemia) (Chronic) E78.5 AICD (automatic cardioverter/defibrillator) present (Chronic) Z95.810 implantation 04/21; gen change and pocket revision 03/17/13 Anemia of chronic renal failure, stage 3 (moderate) N18.3, D63.1 COPD (chronic obstructive pulmonary disease) J44.9 Hiatal hernia with gastroesophageal reflux K21.9, K44.9 History of DVT (deep vein thrombosis) Z86.718 History of prostate cancer Z85.46 Hypothyroidism E03.9 ALIVIA (obstructive sleep apnea) G47.33 Osteomyelitis M86.9 Peripheral vascular disease I73.9 Pulmonary fibrosis J84.10 Occlusion of left subclavian vein I82.B12 port placement rt side Acute bronchitis (Inactive) J20.9 Acute exacerbation of chronic obstructive pulmonary disease (Inactive) J44.1 Anemia of chronic renal failure, stage 3 (moderate) (Inactive) N18.3, D63.1 Aspiration pneumonia (Inactive) J69.0 CAD (coronary artery disease) (Inactive) I25.10 s/p cabg ef=40% negative stress /14 COPD (chronic obstructive pulmonary disease) (Inactive) J44.9 Chronic CHF (Inactive) I50.9 ef=40% Chronic anticoagulation (Inactive) Z79.01 Hiatal hernia with gastroesophageal reflux (Inactive) K21.9, K44.9 History of DVT (deep vein thrombosis) (Inactive) Z86.718 on coumadin History of prostate cancer (Inactive) Hypothyroidism (Inactive) E03.9 ALIVIA (obstructive sleep apnea) (Inactive) G47.33 PVD (peripheral vascular disease) (Inactive) I73.9 Subtherapeutic international normalized ratio (INR) (Inactive) R79.1 Allergies fexofenadine Adverse Reaction (Severe, Verified 11/05/17 13:24) Cough prednisone Adverse Reaction (Severe, Verified 11/05/17 13:24) Unknown oxycodone [From Percocet] Adverse Reaction (Unknown, Verified 11/05/17 13:24) Unknown amiodarone Adverse Reaction (Verified 11/05/17 13:24) affects his lungs/breathing azithromycin Adverse Reaction (Verified 11/05/17 13:24) Other PATIENT STATES HE LOST HIS HEARING AND HIS HAIR levofloxacin [From Levaquin] Adverse Reaction (Verified 11/05/17 13:24) Other linezolid [From Zyvox] Adverse Reaction (Verified 11/05/17 13:24) decreased platelets morphine Adverse Reaction (Verified 11/05/17 13:24) agitated tramadol Adverse Reaction (Verified 11/05/17 13:24) interferes with another medication he is on Home Medications: Ambulatory Orders Medication Instructions Recorded Albuterol Aerosols [Ventolin 2.5 mg INHALATION Q6H PRN PRN 11/26/17 Aerosols] Aspirin [Aspirin, Baby] 81 mg PO DAILY@0800 11/26/17 Carvedilol [Coreg] 3.125 mg PO BID 11/26/17 Dronedarone Hydrochloride [Multaq] 400 mg PO BID 11/26/17 Fluticasone/Salmeterol 1 each IH Q12H 11/26/17 [Fluticasone-Salmeterol 232-14] Ipratropium/Albuterol Sulfate 3 ml INHALATION Q6HWA.RT 11/26/17 [Duoneb] Levothyroxine Sodium [Synthroid] 150 mcg PO SHEPHERD 11/26/17 Levothyroxine [Synthroid] 75 mcg PO MOTUWETHFRSA 11/26/17 Lidocaine [Lidoderm Patch] 1 patch TOPICAL DAILY 11/26/17 Menthol/Lanolin/Calamine/Znox 1 applic TP TID 11/26/17 [Calmoseptine Ointment] Metoclopramide [Reglan] 10 mg PO ACHS 11/26/17 Nutritional Supplement [David - 1 packet PO BIDCM 11/26/17 ORANGE FLAVOR] Pantoprazole Sodium [Protonix] 20 mg PO BID 11/26/17 Potassium Chloride [Klor-Con] 20 meq PO BIDCM 11/26/17 Pravastatin [Pravachol] 20 mg PO QHS 11/26/17 Sacubitril/Valsartan 24/26 mg 1 each PO BID 11/26/17 [Entresto 24 mg-26 mg Tablet] Tiotropium [place] [Spiriva 18 MCG] 1 puff INHALATION DAILY 11/26/17 Venlafaxine XR [Effexor Xr] 75 mg PO DAILY 11/26/17 Surgical History: Surgical History (Last Reviewed 11/26/17 @ 01:33 by Mustapha Hess DO) H/O percutaneous transluminal coronary angioplasty (Chronic) Z98.61 Aortocoronary bypass status (Chronic) Onset Date: ~1985 Z95.1 CABG x4-PABLITO to LAD, ZIMMERMAN to DX, SVG to CX, SVG to RCA 1985 History of total knee replacement Z96.659 bilateral History of prostatectomy Z98.890, Z90.79 History of total knee replacement (Inactive) Z96.659 Left Hx of CABG (Inactive) Surgical History: coronary bypass surgery, pacemaker implantation, total knee arthroplasty - BL, - - 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 Jennings , PCI/stents. Psychiatric History: No pertinent psych hx Smoking Status: Former smoker - *Family History Maternal Family History: Family History (Last Reviewed 11/26/17 @ 01:33 by Mustapha Hess DO) Brother Heart disease History Items: No pertinent history Paternal Family History: Family History (Last Reviewed 11/26/17 @ 01:33 by Mustapha Hess DO) Brother Heart disease History Items: No pertinent history Review of Systems Constitutional: Denies: Chills, Fever, Weight Change Eyes: Reports: Blurred vision - Occurred on the 12th. Patient does not know time nor the time around approximate time this occurred today was occurring all day or not and unspecified is specifically what his visual changes are. Does state that he has better ability to see larger print and smaller print but unclear if this is new or old. HEENT: Denies: Head Aches, Sinus Congestion, Sinus Drainage Cardiovascular: Denies: Chest Pain, Palpitations Respiratory: Denies: Cough, Shortness of breath at rest, Sputum production Gastrointestinal: Denies: Abdominal Pain, Nausea, Vomiting Genitourinary: Denies: Dysuria Musculoskeletal: Denies: Joint Pain, Joint Tenderness Skin: Denies: Rash, Wounds Neurological: Denies: Numbness, Tingling, Focal weakness Psychiatric: Denies: Anxiety, Depression Endocrine: Denies: Change in Body Habitus, Heat/ Cold Intolerance Hematologic/ Lymphatic: Denies: Easy Bruising, Easy Bleeding, Hx of blood clot Comment: Otherwise all review systems are negative except for in the HPI and reviewed symptoms. VTE Information - Inpt Only VTE Present on Admission: No VTE Mechan Device Prophylaxis: SCD's VTE Pharm Prophylaxis ordered?: Yes Patient Problems: Active and Suspected Problems (Last Reviewed 11/05/17 @ 13:33 by Joelle Vega) Fall (Acute) Left radial fracture (Acute) Knee laceration (Acute) Cellulitis (Acute) Acute on chronic kidney failure (Acute) Shock (Acute) Hyperkalemia (Acute) Leukocytosis (Acute) - Physical Exam General: Alert, - - Reluctant to answer questions at time and refused to answer questions at time. Very cantankerous and angry. HEENT: Atraumatic, PERRLA, EOMI, Normocephalic Oral: Moist Mucosa, No Gingival or Mucosal Lesions/ Ulcerations Neck: No Nodes, Thyroid Normal Size and Texture Lungs: Clear to auscultation, Normal air movement, No rhonchi, No wheeze Cardiovascular: Regular rate, Regular Rhythm, Normal S1, Normal S2 Abdomen: Bowel Sounds Present, Soft, Non Tender, Non-Distended, No Hepato- splenomegaly Extremities: No edema, No Calf Tenderness Skin: No rashes, No breakdown Musculoskeletal: No Tenderness to Palpation of Joints or Extremities, No Muscle Wasting Neurological: Motor Exam 5/5 strength throughout, - - No clonus Psych/Mental Status: Flat Affect - Does not establish eye contact. Vital Signs Temp Pulse Resp BP Pulse Ox 36.7 C 69 16 70/52 L 94 11/25/17 23:35 06/13/18 01:07 11/26/17 01:07 11/26/17 01:07 11/26/17 01:07 Oxygen Flow Rate (L/min) 3 Oxygen Delivery Method Nasal Cannula Laboratory Results - last 24 hr 11/25/17 11/25/17 11/25/17 22:25 22:25 22:25 WBC 17.2 H RBC 3.87 L Hgb 11.2 L Hct 34.5 L MCV 89.1 MCH 28.9 MCHC 32.5 RDW 18.6 H RDW Differential 55.6 H Plt Count 157 MPV 10.5 Immature Gran % (Auto) 0.600 Neut % (Auto) 78.0 H Lymph % (Auto) 13.4 L [place] % (Auto) 7.6 Eos % (Auto) 0.3 Baso % (Auto) 0.1 Absolute Neuts (auto) 13.4 H Absolute Lymphs (auto) 2.30 Total Counted Not Reportable Differential Comment SCANNED Hypochromasia 3+ Target Cells 2+ PT 14.0 INR 1.1 APTT 36.4 H Sodium 139 Potassium 5.7 H Chloride 104 Carbon Dioxide 27.0 Anion Gap 8 BUN 65 H Creatinine 2.00 H Est GFR (MDRD) Af Amer 42 L Est GFR (MDRD) Non-Af 34 L BUN/Creatinine Ratio 32.5 H Glucose 67 L Lactic Acid Calcium 8.7 Total Bilirubin 0.60 AST 44 H ALT 33 Alkaline Phosphatase 229 H Troponin I 0.021 Total Protein 4.6 L Albumin 1.8 L Globulin 2.8 Albumin/Globulin Ratio 0.6 L TSH 9.58 H Urine Color Urine Clarity Urine pH Ur Specific [place] Urine Protein Urine Glucose (UA) Urine Ketones Urine Occult Blood Urine Nitrite Urine Bilirubin Urine Urobilinogen Ur Leukocyte Esterase Urine RBC Urine WBC Ur Squamous Epith Cells Amorphous Sediment Urine Bacteria Urine Mucus 11/25/17 11/25/17 23:00 23:30 WBC RBC Hgb Hct MCV MCH MCHC RDW RDW Differential Plt Count MPV Immature Gran % (Auto) Neut % (Auto) Lymph % (Auto) [place] % (Auto) Eos % (Auto) Baso % (Auto) Absolute Neuts (auto) Absolute Lymphs (auto) Total Counted Differential Comment Hypochromasia Target Cells PT INR APTT Sodium Potassium Chloride Carbon Dioxide Anion Gap BUN Creatinine Est GFR (MDRD) Af Amer Est GFR (MDRD) Non-Af BUN/Creatinine Ratio Glucose Lactic Acid 1.5 Calcium Total Bilirubin AST ALT Alkaline Phosphatase Troponin I Total Protein Albumin Globulin Albumin/Globulin Ratio TSH Urine Color Yellow Urine Clarity Clear Urine pH 5.0 Ur Specific [place] 1.010 Urine Protein Negative Urine Glucose (UA) Normal Urine Ketones Negative Urine Occult Blood Negative Urine Nitrite Negative Urine Bilirubin Negative Urine Urobilinogen Normal Ur Leukocyte Esterase 25 H Urine RBC 0 SEEN Urine WBC 0-5 SEEN Ur Squamous Epith Cells 0-5 SEEN Amorphous Sediment 1+ Urine Bacteria RARE Urine Mucus 0 SEEN Chest x-ray personally reviewed and shows poor respiratory effort. Chronically elevated right hemidiaphragm as compared to the left. I do not appreciate any infiltrate. Assessment/Plan All Active Problems (Last Reviewed 11/05/17 @ 13:33 by Joelle Vega) FALL on knees and elbow (Acute) BILA KNEES LACERATION AND BLEEDING (Acute) gisel ON ckd (Acute) Fall (Acute) Left radial fracture (Acute) Knee laceration (Acute) Cellulitis (Acute) Acute on chronic kidney failure (Acute) Shock (Acute) Hyperkalemia (Acute) Leukocytosis (Acute) Left leg cellulitis (Acute) Unspecified open wound, left foot, initial encounter (Acute) Avulsion of skin of left hand (Resolved) Avulsion of skin of right forearm (Resolved) Avulsion of skin of right hand (Resolved) History of subdural hemorrhage (Resolved) Hypotension (Resolved) Rhinovirus (Resolved) Supratherapeutic INR (Resolved) 1. Shock * My concern is that this may be more related with hypovolemia. Other possibilities could be cardiogenic. I do not feel that this is septic shock and a do not feel the patient actually has pneumonia. * Patient received 1 L of IV fluids in the emergency room. I am going to give the patient another liter of IV fluids and reassess. If patient continues to be hypotensive than patient will require pressor therapy. Patient does have a port in place and we should be able to use that for administration of pressor agents but I did inform the patient and his if that were not available or if it became compromise that he would require a central venous catheter likely into his neck. 2. Hyperkalemia * Prior related with supplementation with potassium patient's last potassium was on the seventh and was normal at 3.7. Does not appear to be having a hemolyzed sample at this time. * I will give the patient IV fluids and will reassess in the morning 3. Heart failure with reduced ejection fraction * Patient appears compensated at this time * I will put hold parameters on his Coreg which is at the lowest dose possible anyways * No DILAN inhibitor nor angiotensin receptor pramod given the patient's hypotension * Ejection fraction of 20-25% from echocardiogram on 06/11/2016 * I will repeat a echocardiogram why he is here to see if there is been any change in interim. * That echocardiogram they have from 2016 was from [place], I am unsure the patient has an any more recent echocardiograms not in our system. 4. Hypothyroidism * Patient had a report that his Synthroid was changed what appears to be the same dosing that he was on when he was discharged on 31 October * TSH was 9 * I will check free T4 and free T3 levels and if those are low low then probably increasing his Synthroid he takes every day but Friday up to 100 from 75 would be appropriate. 5. Chronic kidney disease stage III * Patient when he was discharged on October 31 had a creatinine 1.37 and now it is 2 * Will give patient IV fluids and reevaluate 6. Advanced care planning: * Patient wishes to be full CODE STATUS and wishes to be intubated in the event of respiratory arrest and have a PEG tube placed in the event of dysphagia. * Dr. Parker was concerned that the patient may actually be dying from his note from November 24. 7. DVT prophylaxis with heparin and SCDs Code Visit Inpatient E&M: 24345 Init Hosp L3
[2017-11-26] MEDS: 0.9% Normal Saline 1,000 ML 150 ML IV (02:00)
[2017-11-26 02:35] LABS: Free T3 0.9 pg/mL (2.18-3.98); T4 Free Direct 0.96 ng/dL (0.76-1.46)
[2017-11-26 03:57] LABS: M R Staph aureus DNA By PCR Negative (Negative); Probe Check PASS; Specimen Processing Control PASS
[2017-11-26] MEDS: 0.9% NaCl Peripheral Flush Adult/Peds IV ×4 (04:15→19:09)
[2017-11-26 04:39] LABS: Hematocrit 33.3 % (40-54); Hemoglobin 10.7 g/dl (13.0-16.5); Mean Corp Hgb Conc 32.1 g/gl (32-36); Mean Corpuscular Hgb 28.9 pg (27.0-32.0); Mean Platelet Vol. 10.3 fl (6.2-12.0); Platelet Count 147 K/mm3 (150-450); RBC Distribution Width CV 18.2 % (11.6-14.6); RBC Distribution Width SD 54.8 fl (35.1-43.9); White Blood Count 16.8 K/mm3 (4.4-11.0)
[2017-11-26 04:49] LABS: Scan Indicated on CBC? Y/N NO
[2017-11-26 04:55] LABS: Anion Gap 7 (5-15); BUN 62 mg/dL (7-18); BUN/Creat Ratio 30.8 RATIO (10-20); Calcium,Total 8.1 mg/dL (8.5-10.1); Chloride 106 mmol/L (98-107); Creatinine, Serum 2.01 mg/dL (0.70-1.30); EST Glomerular Filtration Rate 34 mL/min (>60); Est Glom Filt Rate - Afr Amer 41 mL/min (>60); Glucose 74 mg/dL (74-106); Potassium 5.4 mmol/L (3.5-5.1); Sodium Level 139 mmol/L (136-145)
[2017-11-26] MEDS: Menthol/Lanolin/Calamine/Znox 113 GM Tube 1 APPLIC TOPICAL ×3 (06:37→21:04)
[2017-11-26] MEDS: Levothyroxine 75 MCG Tablet PO (06:37)
[2017-11-26] MEDS: Ipratropium/Albuterol Sulfate 3 ML AMPUL.NEB INHALATION ×3 (06:47→19:02)
[2017-11-26] MEDS: Budesonide Respules 0.5 MG/2 ML AMPUL.NEB. INHALATION ×2 (06:47→19:03)
[2017-11-26] MEDS: Pantoprazole Sodium 20 MG Tablet PO ×2 (09:00→21:05)
[2017-11-26] MEDS: Metoclopramide 10 MG Tablet PO ×4 (09:00→21:05)
[2017-11-26] MEDS: Heparin Injection (Vial) 5,000 UNIT/ML VIAL 5000 UNIT SC (09:00)
[2017-11-26] MEDS: Venlafaxine XR 75 MG Capsule PO (09:00)
[2017-11-26] MEDS: Aspirin 81 MG TAB.CHEW PO (09:00)
[2017-11-26] MEDS: Lidocaine 5% Patch 1 PATCH TOPICAL (09:01)
--- NOTE | 2017-11-26 09:33 | CASEMGMT ---
Addendum entered by Sherri Lane 11/26/17 12:53: SW spoke w/RN, let her know if pt is ready to return to TCU today, to call RAFAELA Al. As per supervisor propellant charge loading, pt will not be ready today. SW spoke w/pt, let him know that when he is ready, he will be able to return to TCU. Pt states understanding. RAFAELA let Jazlyn in TCU know that pt will not be returning today as per RN. SELAM Mcallister, LUIS Original Note: Pt is here from TCU, they can take pt back when ready. As per physician during ICU rounds, pt may be able to return to TCU today. RAFAELA spoke w/Jazlyn in TCU, pt can return today if medically ready. RAFAELA will continue to follow. SELAM Mcallister, GAS WELL DRILLING MANAGER
[2017-11-26] MEDS: Carvedilol 3.125 MG TABLET PO (10:37)
--- NOTE | 2017-11-26 11:10 | CON.PCM_ITS ---
Problem List (1) Knee laceration Status: Acute Qualifiers: Encounter type: subsequent encounter Laterality: unspecified laterality Qualified Code(s): S81.019D - Laceration without foreign body, unspecified knee , subsequent encounter (2) Acute on chronic kidney failure Status: Acute (3) Obesity Status: Chronic Qualifiers: Obesity type: due to excess calories Obesity classification: adult class 1 (BMI 30 - 34.9) Serious obesity comorbidity presence: with serious comorbidity Body mass index: BMI 33.0-33.9 Qualified Code(s): E66.09 - Other obesity due to excess calories; Z68.33 - Body mass index (BMI) 33.0-33.9, adult (4) Bronchiectasis Status: Chronic (5) Chronic systolic heart failure Status: Chronic (6) Coronary artery disease Status: Chronic Qualifiers: Coronary Disease-Associated Artery/Lesion type: [place] artery [place] vs. transplanted heart: [place] heart Associated angina: without angina Qualified Code(s): I25.10 - Atherosclerotic heart disease of [place] coronary artery without angina pectoris (7) Diabetes mellitus Status: Chronic (8) Hypertension Status: Chronic (9) Hypothyroidism Status: Chronic (10) Nausea Status: Chronic (11) GERD (gastroesophageal reflux disease) Status: Chronic (12) Depression Status: Chronic (13) Obesity (BMI 30.0-34.9) Status: Chronic (14) ALIVIA (obstructive sleep apnea) Status: Chronic (15) COPD (chronic obstructive pulmonary disease) Status: Chronic Qualifiers: (16) CKD (chronic kidney disease) stage 3, GFR 30-59 ml/min Status: Chronic (17) Atrial fibrillation Status: Chronic Qualifiers: (18) H/O percutaneous transluminal coronary angioplasty Status: Chronic (19) Aortocoronary bypass status Status: Chronic Comment: CABG x4-PABLITO to LAD, ZIMMERMAN to DX, SVG to CX, SVG to RCA 1986 (20) Ischemic cardiomyopathy Status: Chronic Reason for Consult Date of Consultation: 11/26/17 Reason for Consultation: Hypotension History of Present Illness: The patient is a 82 year old M past medical history listed below, who presented to [facility] on 11/26/2017 from the TCU secondary to lightheadedness and chest pain. Patient does have an extensive medical history and was in TCU for transitional care. Patient reported having difficulty seeing the TV and lightheadedness. Patient had been reporting some shortness of breath and cough to the ER as well as nausea, vomiting and diarrhea. In the emergency room, patient was noted to be hypotensive at 75/48 without significant JVD. EKG showed sinus rhythm with a rate of 79. Patient did have leukocytosis and a chest x-ray was read as a new left lower lobe infiltrate. Patient was admitted to the intensive care unit for further monitoring. On arrival to the intensive care unit, patient was noted to be hypotensive and did receive some fluid boluses. No pressors were initiated. Antibiotics were not continued. Nursing reports that patient continued to have mentation despite decreased blood pressures with maps ranging from 60-70. On my evaluation this morning, patient was appropriate in answering questions. Patient had reported some pain of his coccyx that he associated with diarrhea with skin irritation. Patient denied any cough or chest pain on my evaluation. Patient feels that he is back to his baseline and would like to go back to the TCU. Patient is not a very good historian, but states that his diarrhea has improved. Patient is denying any abdominal pain. Review of systems otherwise negative ?10 systems. Past Medical History Past Medical History (Chronic Problems): Chronic Problems (Last Reviewed 11/26/17 @ 01:32 by Mustapha Hess DO) Obesity (Chronic) Deep vein thrombosis (Chronic) Bronchiectasis (Chronic) Chronic systolic heart failure (Chronic) Coronary artery disease (Chronic) Myocardial infarction (Chronic) Diabetes mellitus (Chronic) Hypertension (Chronic) Hypothyroidism (Chronic) Nausea (Chronic) GERD (gastroesophageal reflux disease) (Chronic) Depression (Chronic) Obesity (BMI 30.0-34.9) (Chronic) ALIVIA (obstructive sleep apnea) (Chronic) History of DVT (deep vein thrombosis) (Chronic) COPD (chronic obstructive pulmonary disease) (Chronic) CKD (chronic kidney disease) stage 3, GFR 30-59 ml/min (Chronic) nursing home (current) use of anticoagulants (Chronic) Atrial fibrillation (Chronic) Cardiac pacemaker in situ (Chronic) Ventricular tachycardia (Chronic) Chronic systolic congestive heart failure (Chronic) Presence of stent in coronary artery (Chronic ~06/20/04) PTCA/DO to mid RCA 06/20/04 H/O percutaneous transluminal coronary angioplasty (Chronic) 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) CABG x4-PABLITO to LAD, ZIMMERMAN to DX, SVG to CX, SVG to RCA 1985 Atherosclerotic heart disease of [place] coronary artery without angina pectoris (Chronic) CABG x4-PABLITO to LAD, ZIMMERMAN to DX, SVG to CX, SVG to RCA 1985; PTCA/DO to mid RCA 06/20/04 Ischemic cardiomyopathy (Chronic) Benign essential hypertension (Chronic) Type II diabetes mellitus (Chronic) HLD (hyperlipidemia) (Chronic) AICD (automatic cardioverter/defibrillator) present (Chronic) implantation 04/21; gen change and pocket revision 03/17/13 Medical History: Medical History (Last Reviewed 11/26/17 @ 01:32 by Mustapha Hess DO) Old myocardial infarction (Chronic) I25.2 Atherosclerotic heart disease of [place] coronary artery without angina pectoris (Chronic) I25.10 CABG x4-PABLITO to LAD, ZIMMERMAN to DX, SVG to CX, SVG to RCA 1985; PTCA/DO to mid RCA 06/20/04 Ischemic cardiomyopathy (Chronic) I25.5 Benign essential hypertension (Chronic) I10 Type II diabetes mellitus (Chronic) E11.9 HLD (hyperlipidemia) (Chronic) E78.5 AICD (automatic cardioverter/defibrillator) present (Chronic) Z95.810 implantation 04/21; gen change and pocket revision 03/17/13 Anemia of chronic renal failure, stage 3 (moderate) N18.3, D63.1 COPD (chronic obstructive pulmonary disease) J44.9 Hiatal hernia with gastroesophageal reflux K21.9, K44.9 History of DVT (deep vein thrombosis) Z86.718 History of prostate cancer Z85.46 Hypothyroidism E03.9 ALIVIA (obstructive sleep apnea) G47.33 Osteomyelitis M86.9 Peripheral vascular disease I73.9 Pulmonary fibrosis J84.10 Occlusion of left subclavian vein I82.B12 port placement rt side Acute bronchitis (Inactive) J20.9 Acute exacerbation of chronic obstructive pulmonary disease (Inactive) J44.1 Anemia of chronic renal failure, stage 3 (moderate) (Inactive) N18.3, D63.1 Aspiration pneumonia (Inactive) J69.0 CAD (coronary artery disease) (Inactive) I25.10 s/p cabg ef=40% negative stress 01/27 COPD (chronic obstructive pulmonary disease) (Inactive) J44.9 Chronic CHF (Inactive) I50.9 ef=40% Chronic anticoagulation (Inactive) Z79.01 Hiatal hernia with gastroesophageal reflux (Inactive) K21.9, K44.9 History of DVT (deep vein thrombosis) (Inactive) Z86.718 on coumadin History of prostate cancer (Inactive) Hypothyroidism (Inactive) E03.9 ALIVIA (obstructive sleep apnea) (Inactive) G47.33 PVD (peripheral vascular disease) (Inactive) I73.9 Subtherapeutic international normalized ratio (INR) (Inactive) R79.1 Allergies fexofenadine Adverse Reaction (Severe, Verified 11/05/17 13:24) Cough prednisone Adverse Reaction (Severe, Verified 11/05/17 13:24) Unknown oxycodone [From Percocet] Adverse Reaction (Unknown, Verified 11/05/17 13:24) Unknown amiodarone Adverse Reaction (Verified 11/05/17 13:24) affects his lungs/breathing azithromycin Adverse Reaction (Verified 11/05/17 13:24) Other PATIENT STATES HE LOST HIS HEARING AND HIS HAIR levofloxacin [From Levaquin] Adverse Reaction (Verified 11/05/17 13:24) Other linezolid [From Zyvox] Adverse Reaction (Verified 11/05/17 13:24) decreased platelets morphine Adverse Reaction (Verified 11/05/17 13:24) agitated tramadol Adverse Reaction (Verified 11/05/17 13:24) interferes with another medication he is on Home Medications: Ambulatory Orders Medication Instructions Recorded Albuterol Aerosols [Ventolin 2.5 mg INHALATION Q6H PRN PRN 11/26/17 Aerosols] Aspirin [Aspirin, Baby] 81 mg PO DAILY@0800 11/26/17 Carvedilol [Coreg] 3.125 mg PO BID 11/26/17 Dronedarone Hydrochloride [Multaq] 400 mg PO BID 11/26/17 Fluticasone/Salmeterol 1 each IH Q12H 11/26/17 [Fluticasone-Salmeterol 232-14] Ipratropium/Albuterol Sulfate 3 ml INHALATION Q6HWA.RT 11/26/17 [Duoneb] Levothyroxine Sodium [Synthroid] 150 mcg PO SHEPHERD 11/26/17 Levothyroxine [Synthroid] 75 mcg PO MOTUWETHFRSA 11/26/17 Lidocaine [Lidoderm Patch] 1 patch TOPICAL DAILY 11/26/17 Menthol/Lanolin/Calamine/Znox 1 applic TP TID 11/26/17 [Calmoseptine Ointment] Metoclopramide [Reglan] 10 mg PO ACHS 11/26/17 Nutritional Supplement [David - 1 packet PO BIDCM 11/26/17 [place] FLAVOR] Pantoprazole Sodium [Protonix] 20 mg PO BID 11/26/17 Potassium Chloride [Klor-Con] 20 meq PO BIDCM 11/26/17 Pravastatin [Pravachol] 20 mg PO QHS 11/26/17 Sacubitril/Valsartan 24/26 mg 1 each PO BID 11/26/17 [Entresto 24 mg-26 mg Tablet] Tiotropium [place] [Spiriva 18 MCG] 1 puff INHALATION DAILY 11/26/17 Venlafaxine XR [Effexor Xr] 75 mg PO DAILY 11/26/17 Surgical History: Surgical History (Last Reviewed 11/26/17 @ 01:33 by Mustapha Hess DO) H/O percutaneous transluminal coronary angioplasty (Chronic) Z98.61 Aortocoronary bypass status (Chronic) Onset Date: ~1985 Z95.1 CABG x4-PABLITO to LAD, ZIMMERMAN to DX, SVG to CX, SVG to RCA 1985 History of total knee replacement Z96.659 bilateral History of prostatectomy Z98.890, Z90.79 History of total knee replacement (Inactive) Z96.659 Left Hx of CABG (Inactive) Surgical History: coronary bypass surgery, pacemaker implantation, total knee arthroplasty - BL, - - 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 Jennings , PCI/stents. Psychiatric History: No pertinent psych hx Smoking Status: Former smoker - *Family History Maternal Family History: Family History (Last Reviewed 11/26/17 @ 01:33 by Mustapha Hess DO) Brother Heart disease History Items: No pertinent history Paternal Family History: Family History (Last Reviewed 11/26/17 @ 01:33 by Mustapha Hess DO) Brother Heart disease History Items: No pertinent history Review of Systems Comment: See HPI Patient Problems: Active and Suspected Problems (Last Reviewed 11/26/17 @ 01:32 by Mustapha Jopperi, DO) Shock (Acute) Hyperkalemia (Acute) Leukocytosis (Acute) Objective: All imaging was personally reviewed. Chest x-ray does show a possible early left lower lobe infiltrate versus atelectasis. - Physical Exam General: Alert, Oriented x3, Cooperative, No apparent distress, - - Obese. Appears stated age. Speaking in full sentences. HEENT: Atraumatic, PERRLA, EOMI, Normocephalic, - - Wears glasses. Oral: Moist Mucosa, No Gingival or Mucosal Lesions/ Ulcerations Neck: Supple, No JVD, No Nodes, Trachea Midline Lungs: No rhonchi, No wheeze, No rales, Diminished, - - Check expansion. No dullness to percussion. Cardiovascular: Regular rate, Regular Rhythm, Normal S1, Normal S2, No murmurs, No rub noted, No Gallop Abdomen: Bowel Sounds Present, Soft, Non Tender, Non-Distended, Obese Extremities: No clubbing, No cyanosis, Edema Skin: - - Healing ulcers noted bilateral knees. Erythema of the sacrum noted. Venous stasis changes. Musculoskeletal: No Tenderness to Palpation of Joints or Extremities, No Muscle Wasting Lymphatic: No Cervical, Supraclavicular, or Inguinal Adenopathy Neurological: Cranial nerves II-XII grossly intact, Neuro grossly intact, Motor Exam 5/5 strength throughout Psych/Mental Status: Alert and oriented to time, place, person, mood and affect Vital Signs Temp Pulse Resp BP Pulse Ox 36.4 C L 69 18 80/62 L 99 11/26/17 06:00 11/26/17 07:00 11/26/17 07:00 11/26/17 07:00 11/26/17 07:00 Oxygen Flow Rate (L/min) 3 Oxygen Delivery Method Nasal Cannula Weight: 93.5 kg Body Mass Index (BMI) 33.3 Intake and Output for Last 24 Hours 11/24/17 11/25/17 11/26/17 23:59 23:59 23:59 Intake Total 717 / 717 Output Total 125 / 125 Balance 592 / 592 Laboratory Tests Past 24 Hrs 11/26/17 11/26/17 11/26/17 01:35 01:50 01:50 WBC RBC Hgb Hct MCV MCH MCHC RDW RDW Differential Plt Count MPV Sodium Potassium Chloride Carbon Dioxide Anion Gap BUN Creatinine Est GFR (MDRD) Af Amer Est GFR (MDRD) Non-Af BUN/Creatinine Ratio Glucose Calcium Troponin I 0.018 Free T4 0.96 Free T3 pg/dL 0.9 L Cortisol 12.00 MRSA (PCR) Negative 11/26/17 11/26/17 04:25 04:25 WBC 16.8 H RBC 3.70 L Hgb 10.7 L Hct 33.3 L MCV 90.0 MCH 28.9 MCHC 32.1 RDW 18.2 H RDW Differential 54.8 H Plt Count 147 L MPV 10.3 Sodium 139 Potassium 5.4 H Chloride 106 Carbon Dioxide 26.0 Anion Gap 7 BUN 62 H Creatinine 2.01 H Est GFR (MDRD) Af Amer 41 L Est GFR (MDRD) Non-Af 34 L BUN/Creatinine Ratio 30.8 H Glucose 74 Calcium 8.1 L Troponin I 0.024 Free T4 Free T3 pg/dL Cortisol MRSA (PCR) Clinical Impression(s) from Imaging Studies Chest X-Ray 11/25/17 22:55 IMPRESSION: New airspace disease on the left. MediPort catheter on the right appears looped in the neck. Tip is not clearly identified due to overlapping AICD leads. Electronically Signed: Alexandr Henriquez MD at 23:20 EDT , Service support , Assessment/Plan Active and Suspected Problems (Last Reviewed 11/26/17 @ 01:32 by Mustapha Hess DO) Shock (Acute) Hyperkalemia (Acute) Leukocytosis (Acute) RECOMMENDATIONS: 1. Initiate empiric antibiotics 2. Initiate systemic anticoagulation with heparin drip 3. Consult cardiology for apical thrombus 4. Hold on pressors and boluses for now 5. Wean oxygen as tolerated IMPRESSIONS: 1. Hypotension Unclear etiology at this time. Patient does have a decreased ejection fraction at baseline. Echocardiogram has been ordered and preliminarily shows an apical thrombus. Patient does have a possible left lower lobe infiltrate, but does not have any subjective complaints such as productive cough, fever or current chest pain. Cannot exclude sepsis secondary to pneumonia given infiltrate and leukocytosis. Patient will be placed on empiric antibiotics. No vancomycin was ordered as MRSA swab was negative. Patient does have multiple wounds of his skin, but evaluation does not show exudate or surrounding erythema to suggest infective process. Not exclude the need to initiate pressor therapy. 2. Chronic systolic digestive heart failure Patient has had a depressed ejection fraction in the past. New echocardiogram shows an apical thrombus. Patient will be initiated on anticoagulation with heparin given renal dysfunction. Will consult cardiology. Patient is on multiple medications for his congestive heart failure and these may need to be held. Spoke with Dr. Obando myself. 3. 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 Patient has not been compliant with noninvasive therapy for sleep in the past. Patient is not on anticoagulation at this time. Will not use a bolus this patient has risks for bleeding complications with anticoagulation. TIME: 33 minutes critical care time spent addressing patient's hypotension, congestive heart failure, new apical thrombus, review of all data and collaboration with care team Code Visit 9xxxx: [id number] Critical care first hour
[2017-11-26] MEDS: Piperacil/Tazobactam 3.375 GM/50 ML ML IV ×2 (12:24→21:05)
[2017-11-26] MEDS: 0.9% NaCl IVPB Med Flush (250 mL) 15 ML IV (12:26)
--- NOTE | 2017-11-26 17:04 | PCM.PN.HOSP ---
Patient Problems: Active and Suspected Problems (Last Reviewed 11/26/17 @ 01:32 by Mustapha Hess DO) Shock (Acute) Hyperkalemia (Acute) Leukocytosis (Acute) Subjective: CC: Hypotension Objective: When I saw him this morning he iwas alert and oriented to time place and person , he answered questions appropriately, he denied any dizziness, chest pain shortness of breath or palpitations. Vitals/I&O's: Vital Signs Temp Pulse Resp BP Pulse Ox 97.4 F L 61 16 80/48 L 100 11/26/17 12:00 11/26/17 15:00 11/26/17 15:00 11/26/17 15:00 11/26/17 15:00 Oxygen Flow Rate (L/min) 3 Oxygen Delivery Method Nasal Cannula Weight: 93.5 kg Body Mass Index (BMI) 33.3 Intake and Output for Last 24 Hours 11/24/17 11/25/17 11/26/17 23:59 23:59 23:59 Intake Total 717 / 717 Output Total 125 / 125 Balance 592 / 592 General: Alert, Oriented x3 HEENT: Atraumatic, Normocephalic Oral: Moist Mucosa Neck: Supple, No JVD Lungs: Clear to auscultation, No wheeze, No rales Cardiovascular: Regular rate, Normal S1, Normal S2, No Ectopic Activity Abdomen: Bowel Sounds Present, Soft, Non Tender Extremities: No edema Neurological: Cranial nerves II-XII grossly intact Psych/Mental Status: Normal Affect Laboratory Results 11/26/17 01:35: MRSA (PCR) Negative 11/26/17 01:50: Troponin I 0.018, Free T4 0.96, Free T3 pg/dL 0.9 L 11/26/17 01:50: Cortisol 12.00 11/26/17 04:25: Sodium 139, Potassium 5.4 H, Chloride 106, Carbon Dioxide 26.0, Anion Gap 7, BUN 62 H, Creatinine 2.01 H, Est GFR (MDRD) Af Amer 41 L, Est GFR (MDRD) Non-Af 34 L, BUN/Creatinine Ratio 30.8 H, Glucose 74, Calcium 8.1 L, Troponin I 0.024 11/26/17 04:25: WBC 16.8 H, RBC 3.70 L, Hgb 10.7 L, Hct 33.3 L, MCV 90.0, MCH 28.9, MCHC 32.1, RDW 18.2 H, RDW Differential 54.8 H, Plt Count 147 L, MPV 10.3 Current Medications Albuterol Sulfate (Ventolin Aerosols) 2.5 mg INHALATION Q6H PRN PRN PRN Reason: COUGH/SOB Albuterol/Ipratropium (Duoneb) 3 ml INHALATION Q6HWA.RT [facility] Last Admin: 11/26/17 12:58 Dose: 3 ml Aspirin (Aspirin, Baby) 81 mg PO DAILY@0800 [facility] Last Admin: 11/26/17 09:00 Dose: 81 mg Budesonide (Pulmicort Aerosol) 0.5 mg INHALATION BID.RT [facility] Last Admin: 11/26/17 06:47 Dose: 0.5 mg Calamine/Phenol (Calmoseptine Ointment) 1 applic TOPICAL TID [facility] PRN Reason: Protocol Last Admin: 11/26/17 06:37 Dose: 1 applicatio Carvedilol (Coreg) 3.125 mg PO BID [facility] Last Admin: 11/26/17 10:37 Dose: 3.125 mg Dronedarone (Multaq) 400 mg PO BID [facility] Last Admin: 11/26/17 09:00 Dose: 400 mg Heparin Sodium (Porcine) () 0 units IV UD PRN PRN Reason: Protocol Sodium Chloride () 250 mls @ 15 mls/hr IV .[id number] PRN PRN Reason: SALINE FLUSH Last Admin: 11/26/17 12:26 Dose: 15 mls/hr Piperacillin Sod/Tazobactam Sod (Zosyn) 3.375 gm in 50 mls @ 12.5 mls/hr IV Q12 [facility] Last Admin: 11/26/17 12:24 Dose: 12.5 mls/hr Heparin Sodium/Sodium Chloride () 25,000 unit in 250 mls @ 14 mls/hr IV .[id number] [facility]; As Directed PRN Reason: Protocol Last Admin: 11/26/17 12:10 Dose: 14 mls/hr Levothyroxine Sodium (Synthroid) 75 mcg PO MoTuWeThFrSa@0600 [facility] Last Admin: 11/26/17 06:37 Dose: 75 mcg Levothyroxine Sodium (Synthroid) 150 mcg PO Patel@0600 [facility] Lidocaine (Lidoderm Patch) 1 patch TOPICAL DAILY [facility] PRN Reason: Protocol Last Admin: 11/26/17 09:01 Dose: 1 patch Magnesium Hydroxide (Milk Of Magnesia) 30 ml PO DAILY PRN PRN PRN Reason: Constipation Metoclopramide HCl (Reglan) 10 mg PO ACHS [facility] Last Admin: 11/26/17 12:25 Dose: 10 mg Nutritional Formula (David - [place] Flavor) 1 packet PO BIDCM [facility] Last Admin: 11/26/17 09:00 Dose: 1 packet Pantoprazole Sodium (Protonix) 20 mg PO BID [facility] Last Admin: 11/26/17 09:00 Dose: 20 mg Pravastatin Sodium (Pravachol) 20 mg PO QHS [facility] Sodium Chloride () 5 - 30 ml IV UD PRN PRN Reason: SALINE FLUSH Last Admin: 11/26/17 12:27 Dose: 10 ml Venlafaxine HCl (Effexor Xr) 75 mg PO DAILY [facility] Last Admin: 11/26/17 09:00 Dose: 75 mg Medical Necessity - Tobacco Use Smoking Status: Former smoker Assessment/Plan All Active Problems (Last Reviewed 11/26/17 @ 01:32 by Mustapha Hess DO) FALL on knees and elbow (Acute) BILA KNEES LACERATION AND BLEEDING (Acute) gisel ON ckd (Acute) Fall (Acute) Left radial fracture (Acute) Knee laceration (Acute) Cellulitis (Acute) Acute on chronic kidney failure (Acute) Shock (Acute) Hyperkalemia (Acute) Leukocytosis (Acute) Left leg cellulitis (Acute) Unspecified open wound, left foot, initial encounter (Acute) Avulsion of skin of left hand (Resolved) Avulsion of skin of right forearm (Resolved) Avulsion of skin of right hand (Resolved) History of subdural hemorrhage (Resolved) Hypotension (Resolved) Rhinovirus (Resolved) Supratherapeutic INR (Resolved) 1. Hypotension; resolved with fluid resuscitation. 2. Cardiomyopathy with new echocardiographic findings of apical thrombus; he is on heparin drip. 3. CAD s/p CABG; echo showed an EF ~30%, cardiology consulted. 4. Leukocytosis of unclear etiology; he is currently receiving empiric antibiotics. 5. Chronic atrial fibrillation; will continue his Multaq. 6. Hypothyroidism; he is on Synthroid. Code Visit Inpatient E&M: 51179 Subs Hosp L3
--- NOTE | 2017-11-26 17:07 | PN_ITS ---
Patient Problems: Active and Suspected Problems (Last Reviewed 11/26/17 @ 01:32 by Mustapha Hess DO) Shock (Acute) Hyperkalemia (Acute) Leukocytosis (Acute) Subjective: CC: Hypotension Objective: When I saw him this morning he iwas alert and oriented to time place and person , he answered questions appropriately, he denied any dizziness, chest pain shortness of breath or palpitations. Vitals/I&O's: Vital Signs Temp Pulse Resp BP Pulse Ox 97.4 F L 61 16 80/48 L 100 11/26/17 12:00 11/26/17 15:00 11/26/17 15:00 11/26/17 15:00 11/26/17 15:00 Oxygen Flow Rate (L/min) 3 Oxygen Delivery Method Nasal Cannula Weight: 93.5 kg Body Mass Index (BMI) 33.3 Intake and Output for Last 24 Hours 11/24/17 11/25/17 11/26/17 23:59 23:59 23:59 Intake Total 717 / 717 Output Total 125 / 125 Balance 592 / 592 General: Alert, Oriented x3 HEENT: Atraumatic, Normocephalic Oral: Moist Mucosa Neck: Supple, No JVD Lungs: Clear to auscultation, No wheeze, No rales Cardiovascular: Regular rate, Normal S1, Normal S2, No Ectopic Activity Abdomen: Bowel Sounds Present, Soft, Non Tender Extremities: No edema Neurological: Cranial nerves II-XII grossly intact Psych/Mental Status: Normal Affect Laboratory Results 11/26/17 01:35: MRSA (PCR) Negative 11/26/17 01:50: Troponin I 0.018, Free T4 0.96, Free T3 pg/dL 0.9 L 11/26/17 01:50: Cortisol 12.00 11/26/17 04:25: Sodium 139, Potassium 5.4 H, Chloride 106, Carbon Dioxide 26.0, Anion Gap 7, BUN 62 H, Creatinine 2.01 H, Est GFR (MDRD) Af Amer 41 L, Est GFR ( MDRD) Non-Af 34 L, BUN/Creatinine Ratio 30.8 H, Glucose 74, Calcium 8.1 L, Troponin I 0.024 11/26/17 04:25: WBC 16.8 H, RBC 3.70 L, Hgb 10.7 L, Hct 33.3 L, MCV 90.0, MCH 28.9, MCHC 32.1, RDW 18.2 H, RDW Differential 54.8 H, Plt Count 147 L, MPV 10.3 Current Medications Albuterol Sulfate (Ventolin Aerosols) 2.5 mg INHALATION Q6H PRN PRN PRN Reason: COUGH/SOB Albuterol/Ipratropium (Duoneb) 3 ml INHALATION Q6HWA.RT [facility] Last Admin: 11/26/17 12:58 Dose: 3 ml Aspirin (Aspirin, Baby) 81 mg PO DAILY@0800 [facility] Last Admin: 11/26/17 09:00 Dose: 81 mg Budesonide (Pulmicort Aerosol) 0.5 mg INHALATION BID.RT [facility] Last Admin: 11/26/17 06:47 Dose: 0.5 mg Calamine/Phenol (Calmoseptine Ointment) 1 applic TOPICAL TID [facility] PRN Reason: Protocol Last Admin: 11/26/17 06:37 Dose: 1 applicatio Carvedilol (Coreg) 3.125 mg PO BID [facility] Last Admin: 11/26/17 10:37 Dose: 3.125 mg Dronedarone (Multaq) 400 mg PO BID [facility] Last Admin: 11/26/17 09:00 Dose: 400 mg Heparin Sodium (Porcine) () 0 units IV UD PRN PRN Reason: Protocol Sodium Chloride () 250 mls @ 15 mls/hr IV .[id number] PRN PRN Reason: SALINE FLUSH Last Admin: 11/26/17 12:26 Dose: 15 mls/hr Piperacillin Sod/Tazobactam Sod (Zosyn) 3.375 gm in 50 mls @ 12.5 mls/hr IV Q12 [facility] Last Admin: 11/26/17 12:24 Dose: 12.5 mls/hr Heparin Sodium/Sodium Chloride () 25,000 unit in 250 mls @ 14 mls/hr IV .[id number] [facility]; As Directed PRN Reason: Protocol Last Admin: 11/26/17 12:10 Dose: 14 mls/hr Levothyroxine Sodium (Synthroid) 75 mcg PO MoTuWeThFrSa@0600 [facility] Last Admin: 11/26/17 06:37 Dose: 75 mcg Levothyroxine Sodium (Synthroid) 150 mcg PO Patel@0600 [facility] Lidocaine (Lidoderm Patch) 1 patch TOPICAL DAILY RAD[facility] PRN Reason: Protocol Last Admin: 11/26/17 09:01 Dose: 1 patch Magnesium Hydroxide (Milk Of Magnesia) 30 ml PO DAILY PRN PRN PRN Reason: Constipation Metoclopramide HCl (Reglan) 10 mg PO ACHS [facility] Last Admin: 11/26/17 12:25 Dose: 10 mg Nutritional Formula (David - [place] Flavor) 1 packet PO BIDCM [facility] Last Admin: 11/26/17 09:00 Dose: 1 packet Pantoprazole Sodium (Protonix) 20 mg PO BID [facility] Last Admin: 11/26/17 09:00 Dose: 20 mg Pravastatin Sodium (Pravachol) 20 mg PO QHS [facility] Sodium Chloride () 5 - 30 ml IV UD PRN PRN Reason: SALINE FLUSH Last Admin: 11/26/17 12:27 Dose: 10 ml Venlafaxine HCl (Effexor Xr) 75 mg PO DAILY [facility] Last Admin: 11/26/17 09:00 Dose: 75 mg Medical Necessity - Tobacco Use Smoking Status: Former smoker Assessment/Plan All Active Problems (Last Reviewed 11/26/17 @ 01:32 by Mustapha Hess DO) FALL on knees and elbow (Acute) BILA KNEES LACERATION AND BLEEDING (Acute) gisel ON ckd (Acute) Fall (Acute) Left radial fracture (Acute) Knee laceration (Acute) Cellulitis (Acute) Acute on chronic kidney failure (Acute) Shock (Acute) Hyperkalemia (Acute) Leukocytosis (Acute) Left leg cellulitis (Acute) Unspecified open wound, left foot, initial encounter (Acute) Avulsion of skin of left hand (Resolved) Avulsion of skin of right forearm (Resolved) Avulsion of skin of right hand (Resolved) History of subdural hemorrhage (Resolved) Hypotension (Resolved) Rhinovirus (Resolved) Supratherapeutic INR (Resolved) 1. Hypotension; resolved with fluid resuscitation. 2. Cardiomyopathy with new echocardiographic findings of apical thrombus; he is on heparin drip. 3. CAD s/p CABG; echo showed an EF ~30%, cardiology consulted. 4. Leukocytosis of unclear etiology; he is currently receiving empiric antibiotics. 5. Chronic atrial fibrillation; will continue his Multaq. 6. Hypothyroidism; he is on Synthroid. Code Visit Inpatient E&M: 35394 Subs Hosp L3
--- NOTE | 2017-11-26 18:43 | PCM.CONS.C ---
Problem List (1) Hypotension Status: Acute (2) Left ventricular thrombosis Status: Acute (3) Chronic systolic heart failure Status: Chronic (4) Cardiomyopathy Status: Chronic Qualifiers: Cardiomyopathy type: ischemic Qualified Code(s): I25.5 - Ischemic cardiomyopathy (5) Coronary artery disease Status: Chronic Qualifiers: Coronary Disease-Associated Artery/Lesion type: hughes artery [place] vs. transplanted heart: hughes heart Associated angina: without angina Qualified Code(s): I25.10 - Atherosclerotic heart disease of hughes coronary artery without angina pectoris (6) S/P CABG x 4 Status: Chronic (7) S/P PTCA (percutaneous transluminal coronary angioplasty) Status: Chronic (8) Atrial fibrillation Status: Chronic Qualifiers: Atrial fibrillation type: paroxysmal Qualified Code(s): I48.0 - Paroxysmal atrial fibrillation (9) Ventricular tachycardia Status: Chronic (10) AICD (automatic cardioverter/defibrillator) present Status: Chronic Comment: implantation 04/21; gen change and pocket revision 03/17/13 (11) HLD (hyperlipidemia) Status: Chronic Qualifiers: Hyperlipidemia type: unspecified Qualified Code(s): E78.5 - Hyperlipidemia, unspecified (12) Hypertension Status: Chronic (13) Type II diabetes mellitus Status: Chronic Qualifiers: Diabetes mellitus long term care administrator insulin use: without nursing home use Diabetes mellitus complication status: with unspecified complications Qualified Code(s): E11.8 - Type 2 diabetes mellitus with unspecified complications (14) CKD (chronic kidney disease) stage 3, GFR 30-59 ml/min Status: Chronic (15) History of DVT (deep vein thrombosis) Status: Chronic (16) COPD (chronic obstructive pulmonary disease) Status: Chronic Qualifiers: Reason for Consult Date of Consultation: 11/26/17 History of Present Illness: The patient is a 82 year old white male with a past cardiovascular history which has included underlying CAD, ischemic mediated cardia myopathy, status post CABG, status post PCI, atrial fibrillation, trichomoniasis or tachycardia, status post ICD placement, superimposed upon hyperlipidemia, hypertension, diabetes mellitus, chronic renal insufficiency, DVT, and COPD who is referred for evaluation of hypotension and an abnormal transthoracic echocardiogram suggesting an underlying left ventricular apical thrombus. The patient dates he had been doing well until just recently. He his main concerns recently have included dizziness and lightheadedness upon standing. He denies any syncopal events. He denies any ICD discharges. He has not been complaining of ongoing chest discomfort. He notes he does get short of breath with activity. He has had chronic lower extremity peripheral pitting edema which waxes and wanes. He was brought to the [facility] emergency department and subsequently admitted based upon concerns of hypotension potentially related to a combination of his underlying multiple medical issues, medication effects with decreased intravascular volume, as well as possible infectious disease related issues. He has been monitored. His cardiac enzymes have been negative. His ECG appears to demonstrate underlying normal sinus rhythm with a leftward axis with an inferior CT pattern of indeterminate age with potential intermittent electronic ventricular paced beats. A chest x-ray suggested a left upper lobe airspace disease process. A transthoracic echocardiogram was performed. This was of diminished quality study. His overall LV systolic function appeared to be diminished with an estimated LVEF of 30%. He was noted to have echocardiographic findings appearing compatible with a left ventricular apical thrombus. He has been treated with medication adjustment, increased intravascular volume, and IV antibiotics. He states overall he is feeling better at this time compared to when he was admitted to the hospital. [] Past Medical History Allergies/Adverse Reactions: Allergies fexofenadine Adverse Reaction (Severe, Verified 11/05/17 13:24) Cough prednisone Adverse Reaction (Severe, Verified 11/05/17 13:24) Unknown oxycodone [From Percocet] Adverse Reaction (Unknown, Verified 11/05/17 13:24) Unknown amiodarone Adverse Reaction (Verified 11/05/17 13:24) affects his lungs/breathing azithromycin Adverse Reaction (Verified 11/05/17 13:24) Other PATIENT STATES HE LOST HIS HEARING AND HIS HAIR levofloxacin [From Levaquin] Adverse Reaction (Verified 11/05/17 13:24) Other linezolid [From Zyvox] Adverse Reaction (Verified 11/05/17 13:24) decreased platelets morphine Adverse Reaction (Verified 11/05/17 13:24) agitated tramadol Adverse Reaction (Verified 11/05/17 13:24) interferes with another medication he is on Home Medications: Ambulatory Orders Medication Instructions Recorded Albuterol Aerosols [Ventolin 2.5 mg INHALATION Q6H PRN PRN 11/26/17 Aerosols] Aspirin [Aspirin, Baby] 81 mg PO DAILY@0800 11/26/17 Carvedilol [Coreg] 3.125 mg PO BID 11/26/17 Dronedarone Hydrochloride [Multaq] 400 mg PO BID 11/26/17 Fluticasone/Salmeterol 1 each IH Q12H 11/26/17 [Fluticasone-Salmeterol 232-14] Ipratropium/Albuterol Sulfate 3 ml INHALATION Q6HWA.RT 11/26/17 [Duoneb] Levothyroxine Sodium [Synthroid] 150 mcg PO SHEPHERD 11/26/17 Levothyroxine [Synthroid] 75 mcg PO MOTUWETHFRSA 11/26/17 Lidocaine [Lidoderm Patch] 1 patch TOPICAL DAILY 11/26/17 Menthol/Lanolin/Calamine/Znox 1 applic TP TID 11/26/17 [Calmoseptine Ointment] Metoclopramide [Reglan] 10 mg PO ACHS 11/26/17 Nutritional Supplement [David - 1 packet PO BIDCM 11/26/17 [place] FLAVOR] Pantoprazole Sodium [Protonix] 20 mg PO BID 11/26/17 Potassium Chloride [Klor-Con] 20 meq PO BIDCM 11/26/17 Pravastatin [Pravachol] 20 mg PO QHS 11/26/17 Sacubitril/Valsartan 24/26 mg 1 each PO BID 11/26/17 [Entresto 24 mg-26 mg Tablet] Tiotropium Chase [Spiriva 18 MCG] 1 puff INHALATION DAILY 11/26/17 Venlafaxine XR [Effexor Xr] 75 mg PO DAILY 11/26/17 Past Medical History (Chronic Problems): Chronic Problems (Last Reviewed 11/26/17 @ 01:32 by Mustapha Hess DO) Obesity (Chronic) Deep vein thrombosis (Chronic) Bronchiectasis (Chronic) Chronic systolic heart failure (Chronic) Coronary artery disease (Chronic) Myocardial infarction (Chronic) Diabetes mellitus (Chronic) Hypertension (Chronic) Hypothyroidism (Chronic) Nausea (Chronic) GERD (gastroesophageal reflux disease) (Chronic) Depression (Chronic) Cardiomyopathy (Chronic) S/P CABG x 4 (Chronic) S/P PTCA (percutaneous transluminal coronary angioplasty) (Chronic) Obesity (BMI 30.0-34.9) (Chronic) ALIVIA (obstructive sleep apnea) (Chronic) History of DVT (deep vein thrombosis) (Chronic) COPD (chronic obstructive pulmonary disease) (Chronic) CKD (chronic kidney disease) stage 3, GFR 30-59 ml/min (Chronic) retirement (current) use of anticoagulants (Chronic) Atrial fibrillation (Chronic) Cardiac pacemaker in situ (Chronic) Ventricular tachycardia (Chronic) Chronic systolic congestive heart failure (Chronic) Presence of stent in coronary artery (Chronic ~06/20/04) PTCA/DO to mid RCA 06/20/04 H/O percutaneous transluminal coronary angioplasty (Chronic) 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) CABG x4-PABLITO to LAD, ZIMMERMAN to DX, SVG to CX, SVG to RCA 1985 Atherosclerotic heart disease of hughes coronary artery without angina pectoris (Chronic) CABG x4-PABLITO to LAD, ZIMMERMAN to DX, SVG to CX, SVG to RCA 1985; PTCA/DO to mid RCA 06/20/04 Ischemic cardiomyopathy (Chronic) Benign essential hypertension (Chronic) Type II diabetes mellitus (Chronic) HLD (hyperlipidemia) (Chronic) AICD (automatic cardioverter/defibrillator) present (Chronic) implantation 04/21; gen change and pocket revision 03/17/13 Surgical History: coronary bypass surgery, pacemaker implantation, total knee arthroplasty - BL, - - 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 Jennings, PCI/stents. Psychiatric History: No pertinent psych hx - *Family History Maternal Family History: Family History (Last Reviewed 11/26/17 @ 01:33 by Mustapha Hess DO) Brother Heart disease History Items: No pertinent history Paternal Family History: Family History (Last Reviewed 11/26/17 @ 01:33 by Mustapha Hess DO) Brother Heart disease History Items: No pertinent history Smoking Status: Former smoker Alcohol: None Drugs: None Review of Systems - Review of Systems General: Denies: Fever, Night Sweats, Fatigue Cardiovascular: Reports: Shortness of Breath, Shortness of Breath with Exertion, Peripheral Edema, Lightheadedness, Dizziness. Denies: Chest Discomfort, Orthopnea, PND, Palpitations, Near Syncope, Syncope Respiratory: Reports: Shortness of Breath. Denies: Cough, Sputum Production, Hemoptysis Gastrointestinal: Reports: Nausea, Emesis, Diarrhea. Denies: Hematemesis, Hematochezia, Melena Genitourinary: Denies: Dysuria, Hematuria Skin: Denies: Rash Subjectve: This is an 82-year-old white male who appears to be resting comfortably at the moment in no acute distress. Objective: Vital Signs Temp Pulse Resp BP Pulse Ox 97.4 F L 63 17 85/57 L 97 11/26/17 16:00 11/26/17 18:00 11/26/17 18:00 11/26/17 18:00 11/26/17 18:00 Oxygen Flow Rate (L/min) 3 Oxygen Delivery Method Nasal Cannula Weight: 206 lb 2.115 oz Body Mass Index (BMI) 33.3 Intake and Output for Last 24 Hours 11/24/17 11/25/17 11/26/17 23:59 23:59 23:59 Intake Total 837 / 837 Output Total 125 / 125 Balance 712 / 712 General: Awake, Alert, Oriented x 3, Cooperative, No Acute Distress HEENT: Atraumatic, PERRL, EOMI, Sclera Non Icteric Neck: No JVD Lungs: Clear to auscultation Cardiovascular: Regular Rhythm, Premature Ectopic Beats, Normal S1, Normal S2 Vascular: No Carotid Bruits Abdomen: Bowel Sounds Present, Soft, Non Tender Extremities: Mild RLE Edema, Moderate LLE Edema 11/26/17 01:50: Troponin I 0.018 11/26/17 04:25: Sodium 139, Potassium 5.4 H, Chloride 106, Carbon Dioxide 26.0, Anion Gap 7, BUN 62 H, Creatinine 2.01 H, Est GFR (MDRD) Af Amer 41 L, Est GFR (MDRD) Non-Af 34 L, BUN/Creatinine Ratio 30.8 H, Glucose 74, Calcium 8.1 L, Troponin I 0.024 11/26/17 04:25: WBC 16.8 H, RBC 3.70 L, Hgb 10.7 L, Hct 33.3 L, MCV 90.0, MCH 28.9, MCHC 32.1, RDW 18.2 H, RDW Differential 54.8 H, Plt Count 147 L, MPV 10.3 Rhythm: As noted above EKG: As noted above ECHO: As noted above Stress Test: 2016: Pharmacologic stress nuclear imaging study: Compatible with a large inferior lateral and anterior apical scar with no reversible ischemia with an LV appearing dilated and an LVEF of 32% Cardiac Cath: June 2004 at [place], [place] with a report of an LVEF of 25-32%, left main coronary artery with no signs of disease, LAD occluded, LCx with ostial 50% stenosis, RCA with mid 99% stenosis, ZIMMERMAN to the LCx patent, PABLITO to the LAD patent, and SVG graft not discussed PCI: Annually 2004 at [facility] in [place], [place]: Report of successful PTCA/DO to the RCA CT Surgery: [facility]: 10/19/1985: At which time he received a ZIMMERMAN to the LCx, a PABLITO to the LAD, and SVG to the posterior lateral circumflex and distal RCA ICD: April 2006: EP evaluation at [facility] in [place], [place] leading to implantation of a dual-chamber ICD. Currently reported as a [employer] NOONAN ICD E163 CXR: As noted above Assessment/Plan 1. Hypotension The etiology of the patient's hypotension may be multifactorial. This could be related to a combination of his underlying multiple medical issues including his cardiovascular disease process with diminished LV systolic function, medication effect leading to decreased intravascular volume, as well as noncardiovascular issues such as infectious disease related issues. At the present time his medications have been adjusted. He had been on previous higher dose beta-pramod therapy and diuretic therapy with both furosemide and Aldactone. His medications have been adjusted to low-dose beta-pramod therapy and temporarily holding diuretic therapy. At the same time he has received an element of IV fluids. He is also being evaluated for underlying infectious disease issues and is receiving IV antibiotics. Overall he does appear to be somewhat improved from his standpoint both with symptomatic improvement as well as blood pressure improvement. 2. Left ventricular apical thrombus This appears compatible with his underlying history of severe ischemic mediated cardiomyopathy and left ventricular wall motion abnormalities and diminished LV systolic function. The present time it would be recommended that he continue anticoagulant therapy with IV heparin. If he is not in need of any additional invasive procedures then he could be placed on warfarin/Coumadin therapy. He would need continued bridging anticoagulant therapy with IV heparin until his INR is therapeutic. 3. Chronic systolic CHF The patient does have a history of chronic systolic CHF. At the moment he appears to be without acute symptoms. He will need to continue to be monitored. He may eventually need his medications readjusted to balance his volume status if he develops signs of volume overload. 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 Certainly this can contribute to his symptoms of chronic systolic CHF. He is being treated medically. He does not appear to be an ideal candidate for additional invasive evaluation/care at this time. 5. CAD status post previous CABG and PCI The patient does not appear to have evidence of acute coronary syndrome at this time. He will continue risk factor modification and medical management as he is able to based upon his other concerns with respect to his hypotension, etc. 6. Atrial fibrillation The patient does appear to have a history of underlying atrial fibrillation. It appears to be paroxysmal. He has been treated with rate control therapy and anticoagulant therapy and antiarrhythmic therapy. He will need to continue his combined medication as tolerated. Of note he is on antiarrhythmic therapy with dronedarone/Multaq. 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 This was based upon concerns of his underlying pulmonary disease process. There are concerns with respect to using this particular medication in patients with congestive heart failure. However he appears to have been stable on this medication without adverse event thus far. Depending upon his clinical course this may have to be revisited and/or changed over time. 7. Ventricular tachycardia Again he has a history of underlying ventricular dysrhythmias. He has been on beta-pramod therapy. He does have an ICD in place. 8. ICD His ICD has been evaluated in the past. It has been functioning appropriately. Will be followed and reassessed as needed. 9. Hyperlipidemia He can continue medical management as deemed appropriate. 10. Hypertension He does have a history of previous hypertension. However at the moment he has been hypotensive. Thus his medications are being adjusted. 11. Diabetes mellitus He will continue medical therapy per internal medicine. 12. Chronic renal insufficiency His renal function may fluctuate somewhat secondary to his underlying cardiovascular disease process, medications, and volume status. His renal function will need to be followed as it may impact his ongoing evaluation and care. 13. DVT: History of He does have a history of DVT. He has been treated for this in the past. He will need to be monitored for any obvious recurrence and reassessed as deemed appropriate. 14. COPD He does have a history of underlying COPD. He will continue with his care per internal medicine and pulmonology. Overall, at the present time, from a cardiovascular standpoint, the patient will continue to be monitored. His medications will be adjusted to hopefully continue to benefit his cardiovascular status and avoid any obvious adverse effects. He does not appear an ideal candidate at this time for additional invasive evaluation or care. Comment: The above was discussed with the patient, his spouse, and other family members present. This note was generated with [employer] dictation software. It may contain incorrect words, spelling, and punctuation that were not noted in checking the note before signing.
--- NOTE | 2017-11-26 18:53 | CON.PCM_ITS ---
Problem List (1) Hypotension Status: Acute (2) Left ventricular thrombosis Status: Acute (3) Chronic systolic heart failure Status: Chronic (4) Cardiomyopathy Status: Chronic Qualifiers: Cardiomyopathy type: ischemic Qualified Code(s): I25.5 - Ischemic cardiomyopathy (5) Coronary artery disease Status: Chronic Qualifiers: Coronary Disease-Associated Artery/Lesion type: [place] artery [place] vs. transplanted heart: [place] heart Associated angina: without angina Qualified Code(s): I25.10 - Atherosclerotic heart disease of [place] coronary artery without angina pectoris (6) S/P CABG x 4 Status: Chronic (7) S/P PTCA (percutaneous transluminal coronary angioplasty) Status: Chronic (8) Atrial fibrillation Status: Chronic Qualifiers: Atrial fibrillation type: paroxysmal Qualified Code(s): I48.0 - Paroxysmal atrial fibrillation (9) Ventricular tachycardia Status: Chronic (10) AICD (automatic cardioverter/defibrillator) present Status: Chronic Comment: implantation 04/21; gen change and pocket revision (11) HLD (hyperlipidemia) Status: Chronic Qualifiers: Hyperlipidemia type: unspecified Qualified Code(s): E78.5 - Hyperlipidemia , unspecified (12) Hypertension Status: Chronic (13) Type II diabetes mellitus Status: Chronic Qualifiers: 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 Diabetes mellitus complication status: with unspecified complications Qualified Code(s) : E11.8 - Type 2 diabetes mellitus with unspecified complications (14) CKD (chronic kidney disease) stage 3, GFR 30-59 ml/min Status: Chronic (15) History of DVT (deep vein thrombosis) Status: Chronic (16) COPD (chronic obstructive pulmonary disease) Status: Chronic Qualifiers: Reason for Consult Date of Consultation: 11/26/17 History of Present Illness: The patient is a 82 year old white male with a past cardiovascular history which has included underlying CAD, ischemic mediated cardia myopathy, status post CABG, status post PCI, atrial fibrillation, trichomoniasis or tachycardia, status post ICD placement, superimposed upon hyperlipidemia, hypertension, diabetes mellitus, chronic renal insufficiency, DVT, and COPD who is referred for evaluation of hypotension and an abnormal transthoracic echocardiogram suggesting an underlying left ventricular apical thrombus. The patient dates he had been doing well until just recently. He his main concerns recently have included dizziness and lightheadedness upon standing. He denies any syncopal events. He denies any ICD discharges. He has not been complaining of ongoing chest discomfort. He notes he does get short of breath with activity. He has had chronic lower extremity peripheral pitting edema which waxes and wanes. He was brought to the [facility] emergency department and subsequently admitted based upon concerns of hypotension potentially related to a combination of his underlying multiple medical issues, medication effects with decreased intravascular volume, as well as possible infectious disease related issues. He has been monitored. His cardiac enzymes have been negative. His ECG appears to demonstrate underlying normal sinus rhythm with a leftward axis with an inferior NE pattern of indeterminate age with potential intermittent electronic ventricular paced beats. A chest x-ray suggested a left upper lobe airspace disease process. A transthoracic echocardiogram was performed. This was of diminished quality study. His overall LV systolic function appeared to be diminished with an estimated LVEF of 30%. He was noted to have echocardiographic findings appearing compatible with a left ventricular apical thrombus. He has been treated with medication adjustment, increased intravascular volume, and IV antibiotics. He states overall he is feeling better at this time compared to when he was admitted to the hospital. [] Past Medical History Allergies/Adverse Reactions: Allergies fexofenadine Adverse Reaction (Severe, Verified 11/05/17 13:24) Cough prednisone Adverse Reaction (Severe, Verified 11/05/17 13:24) Unknown oxycodone [From Percocet] Adverse Reaction (Unknown, Verified 11/05/17 13:24) Unknown amiodarone Adverse Reaction (Verified 11/05/17 13:24) affects his lungs/breathing azithromycin Adverse Reaction (Verified 11/05/17 13:24) Other PATIENT STATES HE LOST HIS HEARING AND HIS HAIR levofloxacin [From Levaquin] Adverse Reaction (Verified 11/05/17 13:24) Other linezolid [From Zyvox] Adverse Reaction (Verified 11/05/17 13:24) decreased platelets morphine Adverse Reaction (Verified 11/05/17 13:24) agitated tramadol Adverse Reaction (Verified 11/05/17 13:24) interferes with another medication he is on Home Medications: Ambulatory Orders Medication Instructions Recorded Albuterol Aerosols [Ventolin 2.5 mg INHALATION Q6H PRN PRN 11/26/17 Aerosols] Aspirin [Aspirin, Baby] 81 mg PO DAILY@0800 11/26/17 Carvedilol [Coreg] 3.125 mg PO BID 11/26/17 Dronedarone Hydrochloride [Multaq] 400 mg PO BID 11/26/17 Fluticasone/Salmeterol 1 each IH Q12H 11/26/17 [Fluticasone-Salmeterol 232-14] Ipratropium/Albuterol Sulfate 3 ml INHALATION Q6HWA.RT 11/26/17 [Duoneb] Levothyroxine Sodium [Synthroid] 150 mcg PO SHEPHERD 11/26/17 Levothyroxine [Synthroid] 75 mcg PO MOTUWETHFRSA 11/26/17 Lidocaine [Lidoderm Patch] 1 patch TOPICAL DAILY 11/26/17 Menthol/Lanolin/Calamine/Znox 1 applic TP TID 11/26/17 [Calmoseptine Ointment] Metoclopramide [Reglan] 10 mg PO ACHS 11/26/17 Nutritional Supplement [David - 1 packet PO BIDCM 11/26/17 ORANGE FLAVOR] Pantoprazole Sodium [Protonix] 20 mg PO BID 11/26/17 Potassium Chloride [Klor-Con] 20 meq PO BIDCM 11/26/17 Pravastatin [Pravachol] 20 mg PO QHS 11/26/17 Sacubitril/Valsartan 24/26 mg 1 each PO BID 11/26/17 [Entresto 24 mg-26 mg Tablet] Tiotropium Banks [Spiriva 18 MCG] 1 puff INHALATION DAILY 11/26/17 Venlafaxine XR [Effexor Xr] 75 mg PO DAILY 11/26/17 Past Medical History (Chronic Problems): Chronic Problems (Last Reviewed 11/26/17 @ 01:32 by Mustapha Hess DO) Obesity (Chronic) Deep vein thrombosis (Chronic) Bronchiectasis (Chronic) Chronic systolic heart failure (Chronic) Coronary artery disease (Chronic) Myocardial infarction (Chronic) Diabetes mellitus (Chronic) Hypertension (Chronic) Hypothyroidism (Chronic) Nausea (Chronic) GERD (gastroesophageal reflux disease) (Chronic) Depression (Chronic) Cardiomyopathy (Chronic) S/P CABG x 4 (Chronic) S/P PTCA (percutaneous transluminal coronary angioplasty) (Chronic) Obesity (BMI 30.0-34.9) (Chronic) ALIVIA (obstructive sleep apnea) (Chronic) History of DVT (deep vein thrombosis) (Chronic) COPD (chronic obstructive pulmonary disease) (Chronic) CKD (chronic kidney disease) stage 3, GFR 30-59 ml/min (Chronic) 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 (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) Atrial fibrillation (Chronic) Cardiac pacemaker in situ (Chronic) Ventricular tachycardia (Chronic) Chronic systolic congestive heart failure (Chronic) Presence of stent in coronary artery (Chronic ~06/20/04) PTCA/DO to mid RCA 06/20/04 H/O percutaneous transluminal coronary angioplasty (Chronic) 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) CABG x4-PABLITO to LAD, ZIMMERMAN to DX, SVG to CX, SVG to RCA 1985 Atherosclerotic heart disease of [place] coronary artery without angina pectoris (Chronic) CABG x4-PABLITO to LAD, ZIMMERMAN to DX, SVG to CX, SVG to RCA 1985; PTCA/DO to mid RCA 06/20/04 Ischemic cardiomyopathy (Chronic) Benign essential hypertension (Chronic) Type II diabetes mellitus (Chronic) HLD (hyperlipidemia) (Chronic) AICD (automatic cardioverter/defibrillator) present (Chronic) implantation 04/21; gen change and pocket revision 03/17/13 Surgical History: coronary bypass surgery, pacemaker implantation, total knee arthroplasty - BL, - - 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 Jennings , PCI/stents. Psychiatric History: No pertinent psych hx - *Family History Maternal Family History: Family History (Last Reviewed 11/26/17 @ 01:33 by Mustapha Hess DO) Brother Heart disease History Items: No pertinent history Paternal Family History: Family History (Last Reviewed 11/26/17 @ 01:33 by Mustapha Hess DO) Brother Heart disease History Items: No pertinent history Smoking Status: Former smoker Alcohol: None Drugs: None Review of Systems - Review of Systems General: Denies: Fever, Night Sweats, Fatigue Cardiovascular: Reports: Shortness of Breath, Shortness of Breath with Exertion , Peripheral Edema, Lightheadedness, Dizziness. Denies: Chest Discomfort, Orthopnea, PND, Palpitations, Near Syncope, Syncope Respiratory: Reports: Shortness of Breath. Denies: Cough, Sputum Production, Hemoptysis Gastrointestinal: Reports: Nausea, Emesis, Diarrhea. Denies: Hematemesis, Hematochezia, Melena Genitourinary: Denies: Dysuria, Hematuria Skin: Denies: Rash Subjectve: This is an 82-year-old white male who appears to be resting comfortably at the moment in no acute distress. Objective: Vital Signs Temp Pulse Resp BP Pulse Ox 97.4 F L 63 17 85/57 L 97 11/26/17 16:00 11/26/17 18:00 11/26/17 18:00 11/26/17 18:00 11/26/17 18:00 Oxygen Flow Rate (L/min) 3 Oxygen Delivery Method Nasal Cannula Weight: 206 lb 2.115 oz Body Mass Index (BMI) 33.3 Intake and Output for Last 24 Hours 11/24/17 11/25/17 11/26/17 23:59 23:59 23:59 Intake Total 837 / 837 Output Total 125 / 125 Balance 712 / 712 General: Awake, Alert, Oriented x 3, Cooperative, No Acute Distress HEENT: Atraumatic, PERRL, EOMI, Sclera Non Icteric Neck: No JVD Lungs: Clear to auscultation Cardiovascular: Regular Rhythm, Premature Ectopic Beats, Normal S1, Normal S2 Vascular: No Carotid Bruits Abdomen: Bowel Sounds Present, Soft, Non Tender Extremities: Mild RLE Edema, Moderate LLE Edema 11/26/17 01:50: Troponin I 0.018 11/26/17 04:25: Sodium 139, Potassium 5.4 H, Chloride 106, Carbon Dioxide 26.0, Anion Gap 7, BUN 62 H, Creatinine 2.01 H, Est GFR (MDRD) Af Amer 41 L, Est GFR ( MDRD) Non-Af 34 L, BUN/Creatinine Ratio 30.8 H, Glucose 74, Calcium 8.1 L, Troponin I 0.024 11/26/17 04:25: WBC 16.8 H, RBC 3.70 L, Hgb 10.7 L, Hct 33.3 L, MCV 90.0, MCH 28.9, MCHC 32.1, RDW 18.2 H, RDW Differential 54.8 H, Plt Count 147 L, MPV 10.3 Rhythm: As noted above EKG: As noted above ECHO: As noted above Stress Test: 2016: Pharmacologic stress nuclear imaging study: Compatible with a large inferior lateral and anterior apical scar with no reversible ischemia with an LV appearing dilated and an LVEF of 32% Cardiac Cath: June 2004 at [place], [place] with a report of an LVEF of 25-32%, left main coronary artery with no signs of disease, LAD occluded, LCx with ostial 50% stenosis, RCA with mid 99% stenosis, ZIMMERMAN to the LCx patent, PABLITO to the LAD patent, and SVG graft not discussed PCI: Annually 2004 at [facility] in [place], [place]: Report of successful PTCA/DO to the RCA CT Surgery: [facility]: 10/19/1985: At which time he received a ZIMMERMAN to the LCx, a PABLITO to the LAD, and SVG to the posterior lateral circumflex and distal RCA ICD: April 2006: EP evaluation at [facility] in [place], [place] leading to implantation of a dual-chamber ICD. Currently reported as a [employer] NOONAN ICD E163 CXR: As noted above Assessment/Plan 1. Hypotension The etiology of the patient's hypotension may be multifactorial. This could be related to a combination of his underlying multiple medical issues including his cardiovascular disease process with diminished LV systolic function, medication effect leading to decreased intravascular volume, as well as noncardiovascular issues such as infectious disease related issues. At the present time his medications have been adjusted. He had been on previous higher dose beta-pramod therapy and diuretic therapy with both furosemide and Aldactone. His medications have been adjusted to low-dose beta- pramod therapy and temporarily holding diuretic therapy. At the same time he has received an element of IV fluids. He is also being evaluated for underlying infectious disease issues and is receiving IV antibiotics. Overall he does appear to be somewhat improved from his standpoint both with symptomatic improvement as well as blood pressure improvement. 2. Left ventricular apical thrombus This appears compatible with his underlying history of severe ischemic mediated cardiomyopathy and left ventricular wall motion abnormalities and diminished LV systolic function. The present time it would be recommended that he continue anticoagulant therapy with IV heparin. If he is not in need of any additional invasive procedures then he could be placed on warfarin/Coumadin therapy. He would need continued bridging anticoagulant therapy with IV heparin until his INR is therapeutic. 3. Chronic systolic CHF The patient does have a history of chronic systolic CHF. At the moment he appears to be without acute symptoms. He will need to continue to be monitored. He may eventually need his medications readjusted to balance his volume status if he develops signs of volume overload. 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 Certainly this can contribute to his symptoms of chronic systolic CHF. He is being treated medically. He does not appear to be an ideal candidate for additional invasive evaluation/care at this time. 5. CAD status post previous CABG and PCI The patient does not appear to have evidence of acute coronary syndrome at this time. He will continue risk factor modification and medical management as he is able to based upon his other concerns with respect to his hypotension, etc. 6. Atrial fibrillation The patient does appear to have a history of underlying atrial fibrillation. It appears to be paroxysmal. He has been treated with rate control therapy and anticoagulant therapy and antiarrhythmic therapy. He will need to continue his combined medication as tolerated. Of note he is on antiarrhythmic therapy with dronedarone/Multaq. 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 This was based upon concerns of his underlying pulmonary disease process. There are concerns with respect to using this particular medication in patients with congestive heart failure. However he appears to have been stable on this medication without adverse event thus far. Depending upon his clinical course this may have to be revisited and/or changed over time. 7. Ventricular tachycardia Again he has a history of underlying ventricular dysrhythmias. He has been on beta-pramod therapy. He does have an ICD in place. 8. ICD His ICD has been evaluated in the past. It has been functioning appropriately. Will be followed and reassessed as needed. 9. Hyperlipidemia He can continue medical management as deemed appropriate. 10. Hypertension He does have a history of previous hypertension. However at the moment he has been hypotensive. Thus his medications are being adjusted. 11. Diabetes mellitus He will continue medical therapy per internal medicine. 12. Chronic renal insufficiency His renal function may fluctuate somewhat secondary to his underlying cardiovascular disease process, medications, and volume status. His renal function will need to be followed as it may impact his ongoing evaluation and care. 13. DVT: History of He does have a history of DVT. He has been treated for this in the past. He will need to be monitored for any obvious recurrence and reassessed as deemed appropriate. 14. COPD He does have a history of underlying COPD. He will continue with his care per internal medicine and pulmonology. Overall, at the present time, from a cardiovascular standpoint, the patient will continue to be monitored. His medications will be adjusted to hopefully continue to benefit his cardiovascular status and avoid any obvious adverse effects. He does not appear an ideal candidate at this time for additional invasive evaluation or care. Comment: The above was discussed with the patient, his spouse, and other family members present. This note was generated with [employer] dictation software. It may contain incorrect words, spelling, and punctuation that were not noted in checking the note before signing.
[2017-11-26 19:48] LABS: Partial Thromboplast Time > 250.0 Seconds (24.1-36.2)
[2017-11-26] MEDS: Pravastatin 20 MG Tablet PO (21:05)
[2017-11-27] VITALS (37 sets, daily range): BP systolic 76–124; BP diastolic 53–92; PULSE 60–76; RESP 12–26; TEMP 35.9–36.6; O2SAT 97–100
[2017-11-27 00:19] LABS: Partial Thromboplast Time > 250.0 Seconds (24.1-36.2)
[2017-11-27 04:30] LABS: Absolute Lymphocyte Count 1.93 X10^3/ul (0.83-4.51); Absolute Neutrophil Count 14.3 X10^3/uL (2.0-7.7); Basophil# 0.01 X10^3/uL; Basophil% 0.1 % (0-1); Hematocrit 34.5 % (40-54); Hemoglobin 10.9 g/dl (13.0-16.5); Lymphocyte # 1.93 X10^3/ul (4.0); Lymphocyte % 11.3 % (19-41); Mean Corp Hgb Conc 31.6 g/gl (32-36); Mean Corpuscular Hgb 28.5 pg (27.0-32.0); Mean Corpuscular Volume 90.3 fL (80-94); Mean Platelet Vol. 10.5 fl (6.2-12.0); Monocyte# 0.69 X10^3/uL; Neutrophil # 14.27 X10^3/uL (2.7-7.7); Neutrophil % 83.7 % (47-70); POSITIVE COUNT NO; POSITIVE DIFFERENTIAL NO; POSITIVE MORPHOLOGY NO; Platelet Count 184 K/mm3 (150-450); RBC Distribution Width SD 57.9 fl (35.1-43.9); Red Blood Count 3.82 M/mm3 (4.6-6.2); White Blood Count 17.1 K/mm3 (4.4-11.0)
[2017-11-27 04:31] LABS: Anion Gap 7 (5-15); BUN 64 mg/dL (7-18); BUN/Creat Ratio 32.8 RATIO (10-20); Calcium,Total 7.7 mg/dL (8.5-10.1); Chloride 106 mmol/L (98-107); Creatinine, Serum 1.95 mg/dL (0.70-1.30); EST Glomerular Filtration Rate 35 mL/min (>60); Est Glom Filt Rate - Afr Amer 43 mL/min (>60); Estimated Creatinine Clearance 27.26 ml/min; Glucose 124 mg/dL (74-106); Magnesium 1.7 mg/dL (1.6-2.6); Phosphorus 3.3 mg/dL (2.5-4.9); Potassium 5.7 mmol/L (3.5-5.1); Sodium Level 139 mmol/L (136-145)
[2017-11-27 05:32] LABS: Partial Thromboplast Time > 250.0 Seconds (24.1-36.2)
[2017-11-27] MEDS: Metoclopramide 10 MG Tablet PO ×4 (06:10→23:29)
[2017-11-27] MEDS: Levothyroxine 75 MCG Tablet PO (06:10)
[2017-11-27] MEDS: Menthol/Lanolin/Calamine/Znox 113 GM Tube 1 APPLIC TOPICAL ×2 (06:10→23:30)
--- NOTE | 2017-11-27 06:58 | PN_ITS ---
Subjective: Patient did well overnight. Patient did have a Monge placed with minimal urine output and marginal blood pressures. This led to initiation of Levophed. Urine output has slightly improved. Patient remains on 2.5 mcg. Patient was also initiated on a heparin drip secondary to the left ventricular thrombus. Patient continues to report no symptomatology. Patient denies any cough. Sputum sample has not been obtained. Nursing reports no fever overnight. Patient remains on baseline nasal cannula oxygen. Objective: Echocardiogram yesterday showed an EF of 30% with diastolic dysfunction, RVSP of 40 and a left apical thrombus. General: Alert, Oriented x3, Cooperative, No apparent distress, - - Obese. Appears stated age. Speaking in full sentences. HEENT: Atraumatic, PERRLA, EOMI, Normocephalic, - - No scleral icterus or injection noted. Glasses in place. Oral: Moist Mucosa, No Gingival or Mucosal Lesions/ Ulcerations Neck: Supple, No JVD, No Nodes, Trachea Midline Lungs: No wheeze, No rales, Diminished, Rhonchi - Scattered on the left, - - Symmetric expansion. No dullness to percussion. Cardiovascular: Regular rate, Regular Rhythm, Normal S1, Normal S2, No murmurs, No rub noted, No Gallop Abdomen: Bowel Sounds Present, Soft, Non Tender, Non-Distended, Obese Extremities: No cyanosis, Edema, - - Some weeping noted of the left upper extremity. Skin: - - No significant change in knee skin findings. Musculoskeletal: No Tenderness to Palpation of Joints or Extremities Lymphatic: No Cervical, Supraclavicular, or Inguinal Adenopathy Neurological: Cranial nerves II-XII grossly intact, Neuro grossly intact Psych/Mental Status: Alert and oriented to time, place, person, mood and affect Vital Signs Temp Pulse Resp BP Pulse Ox 36.6 C 60 12 89/63 L 100 11/26/17 22:00 11/27/17 06:00 11/27/17 06:00 11/27/17 06:11/27/17 06:00 Oxygen Flow Rate (L/min) 3 Oxygen Delivery Method Nasal Cannula Weight: 95.8 kg Body Mass Index (BMI) 33.3 Intake and Output for Last 24 Hours 11/25/17 11/26/17 11/27/17 23:59 23:59 23:59 Intake Total 1819 / 1819 216 / 216 Output Total 305 / 305 200 / 200 Balance 1514 / 1514 16 16 Labs (Last 48 Hours) 11/26/17 11/26/17 11/26/17 01:35 01:50 01:50 WBC RBC Hgb Hct MCV MCH MCHC RDW RDW Differential Plt Count MPV Immature Gran % (Auto) Neut % (Auto) Lymph % (Auto) [place] % (Auto) Eos % (Auto) Baso % (Auto) Absolute Neuts (auto) Absolute Lymphs (auto) Total Counted APTT Sodium Potassium Chloride Carbon Dioxide Anion Gap BUN Creatinine Estim Creat Clear Calc Est GFR (MDRD) Af Amer Est GFR (MDRD) Non-Af BUN/Creatinine Ratio Glucose Calcium Phosphorus Magnesium Troponin I 0.018 Free T4 0.96 Free T3 pg/dL 0.9 L Cortisol 12.00 MRSA (PCR) Negative 11/26/17 11/26/17 11/26/17 04:25 04:25 18:17 WBC 16.8 H RBC 3.70 L Hgb 10.7 L Hct 33.3 L MCV 90.0 MCH 28.9 MCHC 32.1 RDW 18.2 H RDW Differential 54.8 H Plt Count 147 L MPV 10.3 Immature Gran % (Auto) Neut % (Auto) Lymph % (Auto) [place] % (Auto) Eos % (Auto) Baso % (Auto) Absolute Neuts (auto) Absolute Lymphs (auto) Total Counted APTT > 250.0 H* Sodium 139 Potassium 5.4 H Chloride 106 Carbon Dioxide 26.0 Anion Gap 7 BUN 62 H Creatinine 2.01 H Estim Creat Clear Calc Est GFR (MDRD) Af Amer 41 L Est GFR (MDRD) Non-Af 34 L BUN/Creatinine Ratio 30.8 H Glucose 74 Calcium 8.1 L Phosphorus Magnesium Troponin I 0.024 Free T4 Free T3 pg/dL Cortisol MRSA (PCR) 11/26/17 11/27/17 11/27/17 23:40 04:05 04:05 WBC 17.1 H RBC 3.82 L Hgb 10.9 L Hct 34.5 L MCV 90.3 MCH 28.5 MCHC 31.6 L RDW 19.0 H RDW Differential 57.9 H Plt Count 184 MPV 10.5 Immature Gran % (Auto) 0.900 Neut % (Auto) 83.7 H Lymph % (Auto) 11.3 L [place] % (Auto) 4.0 Eos % (Auto) 0.0 Baso % (Auto) 0.1 Absolute Neuts (auto) 14.3 H Absolute Lymphs (auto) 1.93 Total Counted Not Reportable APTT > 250.0 H* > 250.0 H* Sodium Potassium Chloride Carbon Dioxide Anion Gap BUN Creatinine Estim Creat Clear Calc Est GFR (MDRD) Af Amer Est GFR (MDRD) Non-Af BUN/Creatinine Ratio Glucose Calcium Phosphorus Magnesium Troponin I Free T4 Free T3 pg/dL Cortisol MRSA (PCR) 11/27/17 04:05 WBC RBC Hgb Hct MCV MCH MCHC RDW RDW Differential Plt Count MPV Immature Gran % (Auto) Neut % (Auto) Lymph % (Auto) [place] % (Auto) Eos % (Auto) Baso % (Auto) Absolute Neuts (auto) Absolute Lymphs (auto) Total Counted APTT Sodium 139 Potassium 5.7 H Chloride 106 Carbon Dioxide 26.0 Anion Gap 7 BUN 64 H Creatinine 1.95 H Estim Creat Clear Calc 27.26 Est GFR (MDRD) Af Amer 43 L Est GFR (MDRD) Non-Af 35 L BUN/Creatinine Ratio 32.8 H Glucose 124 H Calcium 7.7 L Phosphorus 3.3 Magnesium 1.7 Troponin I Free T4 Free T3 pg/dL Cortisol MRSA (PCR) Medical Necessity - Tobacco Use Smoking Status: Former smoker Assessment/Plan All Active Problems (Last Reviewed 11/26/17 @ 01:32 by Mustapha Hess DO) FALL on knees and elbow (Acute) BILA KNEES LACERATION AND BLEEDING (Acute) gisel ON ckd (Acute) Fall (Acute) Left radial fracture (Acute) Knee laceration (Acute) Cellulitis (Acute) Acute on chronic kidney failure (Acute) Shock (Acute) Hyperkalemia (Acute) Leukocytosis (Acute) Hypotension (Acute) Left ventricular thrombosis (Acute) Left leg cellulitis (Acute) Unspecified open wound, left foot, initial encounter (Acute) Avulsion of skin of left hand (Resolved) Avulsion of skin of right forearm (Resolved) Avulsion of skin of right hand (Resolved) History of subdural hemorrhage (Resolved) Hypotension (Resolved) Rhinovirus (Resolved) Supratherapeutic INR (Resolved) RECOMMENDATIONS: 1. Continue empiric antibiotics and anticoagulation 2. Wean Levophed as tolerated 3. Okay to wean oxygen from my perspective 5. Wean oxygen as tolerated IMPRESSIONS: 1. Shock Probable multifactorial etiology. Patient does have significantly depressed heart function was found to have left apical thrombus. Patient is currently on anticoagulation. Patient does have a left lung infiltrate and was initiated on antibiotics. However, patient continues to deny any shortness of breath or productive cough. Culture from sputum has not been able to be obtained. We will continue with empiric antibiotics for now. Creatinine does appear to be improving with supportive blood pressure. May consider initiation of Midodrine therapy. 2. Chronic systolic digestive heart failure Patient has had a depressed ejection fraction in the past. New echocardiogram shows an apical thrombus. Patient will be initiated on anticoagulation with heparin given renal dysfunction. Patient seen by Dr. Hewitt. Appreciate input. From my perspective, patient can likely be transitioned to Coumadin therapy as no interventions are required at this time. 3. 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 Patient has not been compliant with noninvasive therapy for sleep in the past. TIME: 31 minutes critical care time spent addressing patient's hypotension, congestive heart failure, new apical thrombus, review of all data and collaboration with care team (5:30 AM to 6:30 AM) Code Visit 9xxxx: [id number] Critical care first hour
[2017-11-27] MEDS: Ipratropium/Albuterol Sulfate 3 ML AMPUL.NEB INHALATION ×3 (07:01→18:42)
[2017-11-27 07:31] LABS: Partial Thromboplast Time 136.6 Seconds (24.1-36.2)
[2017-11-27] MEDS: Aspirin 81 MG TAB.CHEW PO (08:57)
[2017-11-27] MEDS: 0.9% NaCl Peripheral Flush Adult/Peds IV ×2 (08:57→16:36)
--- NOTE | 2017-11-27 09:47 | CASEMGMT ---
SW participated in ICU rounds today, it is not anticipated pt will leave ICU today. SW confirmed w/pt during rounds plan is for pt to return to TCU when ready. SW asked pt after rounds if he would like SW to check in w/his , he states she is probably resting. SW let RN know if comes in to let this SW know, and SW will check in w/her. Message left for Jazlyn in TCU letting her know pt will not be ready to return yet today. SW will continue to follow. SELAM Mcallister, MACHINE WELDER
[2017-11-27] MEDS: CHLORHEXIDINE GLUC 2% CLOTH 1 EACH TOWELETTE TOPICAL (10:15)
[2017-11-27 10:44] LABS: Partial Thromboplast Time 37.5 Seconds (24.1-36.2)
[2017-11-27] MEDS: Piperacil/Tazobactam 3.375 GM/50 ML ML IV ×2 (11:05→23:29)
[2017-11-27] MEDS: Venlafaxine XR 75 MG Capsule PO (11:06)
[2017-11-27] MEDS: Pantoprazole Sodium 20 MG Tablet PO ×2 (11:06→23:29)
[2017-11-27] MEDS: 0.9% NaCl IVPB Med Flush (250 mL) 15 ML IV (11:07)
[2017-11-27] MEDS: Lidocaine 5% Patch 1 PATCH TOPICAL (11:42)
--- NOTE | 2017-11-27 14:33 | PCM.PN.HOSP ---
Patient Problems: Active and Suspected Problems (Last Reviewed 11/26/17 @ 01:32 by Mustapha Hess DO) Shock (Acute) Hyperkalemia (Acute) Leukocytosis (Acute) Hypotension (Acute) Left ventricular thrombosis (Acute) Subjective: CC: Follow-up on hypotension Objective: Patient required vasopressors during the night, he denies any dizziness, palpitations, rapid heartbeat, shortness of breath, fever or chills. Vitals/I&O's: Vital Signs Temp Pulse Resp BP Pulse Ox 96.6 F L 67 20 H 112/67 97 11/27/17 12:00 11/27/17 13:00 11/27/17 13:00 11/27/17 13:00 11/27/17 13:00 Oxygen Flow Rate (L/min) 3 Oxygen Delivery Method Nasal Cannula Weight: 95.8 kg Body Mass Index (BMI) 33.3 Intake and Output for Last 24 Hours 11/25/17 11/26/17 11/27/17 23:59 23:59 23:59 Intake Total 1819 / 1819 514.7 / 514.7 Output Total 305 / 305 400 / 400 Balance 1514 / 1514 114.7 / 114.7 General: Alert, Oriented x3 Oral: Moist Mucosa Neck: Supple Lungs: Clear to auscultation Cardiovascular: Regular rate, Normal S1, Normal S2 Abdomen: Bowel Sounds Present Extremities: No clubbing Neurological: Cranial nerves II-XII grossly intact, Motor Exam 5/5 strength throughout Laboratory Results 11/26/17 18:17: APTT > 250.0 H* 11/26/17 23:40: APTT > 250.0 H* 11/27/17 04:05: APTT > 250.0 H* 11/27/17 04:05: WBC 17.1 H, RBC 3.82 L, Hgb 10.9 L, Hct 34.5 L, MCV 90.3, MCH 28.5, MCHC 31.6 L, RDW 19.0 H, RDW Differential 57.9 H, Plt Count 184, MPV 10.5, Immature Gran % (Auto) 0.900, Neut % (Auto) 83.7 H, Lymph % (Auto) 11.3 L, [place] % (Auto) 4.0, Eos % (Auto) 0.0, Baso % (Auto) 0.1, Absolute Neuts (auto) 14.3 H, Absolute Lymphs (auto) 1.93, Total Counted Not Reportable 11/27/17 04:05: Sodium 139, Potassium 5.7 H, Chloride 106, Carbon Dioxide 26.0, Anion Gap 7, BUN 64 H, Creatinine 1.95 H, Estim Creat Clear Calc 27.26, Est GFR (MDRD) Af Amer 43 L, Est GFR (MDRD) Non-Af 35 L, BUN/Creatinine Ratio 32.8 H, Glucose 124 H, Calcium 7.7 L, Phosphorus 3.3, Magnesium 1.7 11/27/17 07:00: APTT 136.6 H* 11/27/17 10:30: APTT 37.5 H Current Medications Albuterol Sulfate (Ventolin Aerosols) 2.5 mg INHALATION Q6H PRN PRN PRN Reason: COUGH/SOB Albuterol/Ipratropium (Duoneb) 3 ml INHALATION Q6HWA.RT [facility] Last Admin: 11/27/17 12:51 Dose: 3 ml Aspirin (Aspirin, Baby) 81 mg PO DAILY@0800 [facility] Last Admin: 11/27/17 08:57 Dose: 81 mg Budesonide (Pulmicort Aerosol) 0.5 mg INHALATION BID.RT [facility] Last Admin: 11/26/17 19:03 Dose: 0.5 mg Calamine/Phenol (Calmoseptine Ointment) 1 applic TOPICAL TID [facility] PRN Reason: Protocol Last Admin: 11/27/17 06:10 Dose: 1 applicatio Carvedilol (Coreg) 3.125 mg PO BID [facility] Last Admin: 11/27/17 11:08 Dose: Not Given Chlorhexidine Gluconate () 1 each TOPICAL DAILY [facility] Last Admin: 11/27/17 10:15 Dose: 1 each Dronedarone (Multaq) 400 mg PO BID [facility] Last Admin: 11/27/17 11:06 Dose: 400 mg Heparin Sodium (Porcine) () 0 units IV UD PRN PRN Reason: Protocol Sodium Chloride () 250 mls @ 15 mls/hr IV .[id number] PRN PRN Reason: SALINE FLUSH Last Admin: 11/27/17 11:07 Dose: 15 mls/hr Piperacillin Sod/Tazobactam Sod (Zosyn) 3.375 gm in 50 mls @ 12.5 mls/hr IV Q12 [facility] Last Admin: 11/27/17 11:05 Dose: 12.5 mls/hr Heparin Sodium/Sodium Chloride () 25,000 unit in 250 mls @ 14 mls/hr IV .[id number] [facility]; As Directed PRN Reason: Protocol Last Admin: 11/27/17 05:51 Dose: Not Given Norepinephrine Bitartrate 8 mg (/ Dextrose) 258 mls @ 9.67 mls/hr IV .[id number] [facility]; 5 MCG/MIN PRN Reason: Protocol Last Admin: 11/26/17 22:34 Dose: 9.67 mls/hr Levothyroxine Sodium (Synthroid) 75 mcg PO MoTuWeThFrSa@0600 [facility] Last Admin: 11/27/17 06:10 Dose: 75 mcg Levothyroxine Sodium (Synthroid) 150 mcg PO Patel@0600 [facility] Lidocaine (Lidoderm Patch) 1 patch TOPICAL DAILY [facility] PRN Reason: Protocol Last Admin: 11/27/17 11:42 Dose: 1 patch Magnesium Hydroxide (Milk Of Magnesia) 30 ml PO DAILY PRN PRN PRN Reason: Constipation Metoclopramide HCl (Reglan) 10 mg PO ACHS [facility] Last Admin: 11/27/17 11:06 Dose: 10 mg Nutritional Formula (David - [place] Flavor) 1 packet PO BIDCM [facility] Last Admin: 11/27/17 08:57 Dose: 1 packet Pantoprazole Sodium (Protonix) 20 mg PO BID [facility] Last Admin: 11/27/17 11:06 Dose: 20 mg Pravastatin Sodium (Pravachol) 20 mg PO QHS [facility] Last Admin: 11/26/17 21:05 Dose: 20 mg Sodium Chloride () 5 - 30 ml IV UD PRN PRN Reason: SALINE FLUSH Last Admin: 11/27/17 08:57 Dose: 30 ml Venlafaxine HCl (Effexor Xr) 75 mg PO DAILY [facility] Last Admin: 11/27/17 11:06 Dose: 75 mg Medical Necessity - Tobacco Use Smoking Status: Former smoker Assessment/Plan All Active Problems (Last Reviewed 11/26/17 @ 01:32 by Mustapha Hess DO) FALL on knees and elbow (Acute) BILA KNEES LACERATION AND BLEEDING (Acute) gisel ON ckd (Acute) Fall (Acute) Left radial fracture (Acute) Knee laceration (Acute) Cellulitis (Acute) Acute on chronic kidney failure (Acute) Shock (Acute) Hyperkalemia (Acute) Leukocytosis (Acute) Hypotension (Acute) Left ventricular thrombosis (Acute) Left leg cellulitis (Acute) Unspecified open wound, left foot, initial encounter (Acute) Avulsion of skin of left hand (Resolved) Avulsion of skin of right forearm (Resolved) Avulsion of skin of right hand (Resolved) History of subdural hemorrhage (Resolved) Hypotension (Resolved) Rhinovirus (Resolved) Supratherapeutic INR (Resolved) 1. Hypotension; he is on Levophed, will wean as tolerated. 2. Apical thrombus; he is on heparin drip and transitioned to Coumadin 3. Cardiomyopathy s/p ICD.. 4. CAD s/p CABG; echo showed an EF ~30%, he does not appear to have clinical evidence of congestive heart failure. 5. Left lobe pneumonia; the patient is on IV Zosyn 6. Leukocytosis secondary to infectious process above. 7. Chronic atrial fibrillation; he is on Multaq. 8. Hypothyroidism; he is on Synthroid. Code Visit Inpatient E&M: [id number] [facility] L3
[2017-11-27 16:57] LABS: Partial Thromboplast Time 41.7 Seconds (24.1-36.2)
[2017-11-27] MEDS: Sodium Chloride 0.65% 1 SPRAY SPRAY.BTL 2 SPRAY NASAL (17:26)
[2017-11-27] MEDS: Heparin Injection 5,000 UNITS/ML Syringe IV (17:26)
[2017-11-27] MEDS: Budesonide Respules 0.5 MG/2 ML AMPUL.NEB. INHALATION (18:43)
--- NOTE | 2017-11-27 19:21 | PN.CARD_ITS ---
Subjectve: The patient remains in the ICU. He has been up in the chair. He states overall he does feel better. He still has some residual lightheadedness however he notes this has improved. He denies any ongoing chest discomfort or difficulty breathing at this time. Objective: Vital Signs Temp Pulse Resp BP Pulse Ox 97.8 F 70 14 119/81 H 99 11/27/17 18:00 11/27/17 18:00 11/27/17 18:00 11/27/17 18:00 11/27/17 18:00 Oxygen Flow Rate (L/min) 3 Oxygen Delivery Method Nasal Cannula Weight: 211 lb 3.245 oz Body Mass Index (BMI) 33.3 Intake and Output for Last 24 Hours 11/25/17 11/26/17 11/27/17 23:59 23:59 23:59 Intake Total 1819 / 1819 821.7 / 821.7 Output Total 305 / 305 600 / 600 Balance 1514 / 1514 221.7 / 221.7 General: Awake, Alert, Oriented x 3, Cooperative, No Acute Distress Neck: No JVD Lungs: - - No obvious rales or rhonchi Cardiovascular: Regular Rhythm, Premature Ectopic Beats, Normal S1, Normal S2 Abdomen: Bowel Sounds Present, Soft, Non Tender 11/26/17 18:17: APTT > 250.0 H* 11/26/17 23:40: APTT > 250.0 H* 11/27/17 04:05: APTT > 250.0 H* 11/27/17 04:05: WBC 17.1 H, RBC 3.82 L, Hgb 10.9 L, Hct 34.5 L, MCV 90.3, MCH 28.5, MCHC 31.6 L, RDW 19.0 H, RDW Differential 57.9 H, Plt Count 184, MPV 10.5 , Immature Gran % (Auto) 0.900, Neut % (Auto) 83.7 H, Lymph % (Auto) 11.3 L, [place] % (Auto) 4.0, Eos % (Auto) 0.0, Baso % (Auto) 0.1, Absolute Neuts (auto) 14.3 H, Total Counted Not Reportable 11/27/17 04:05: Sodium 139, Potassium 5.7 H, Chloride 106, Carbon Dioxide 26.0, Anion Gap 7, BUN 64 H, Creatinine 1.95 H, Est GFR (MDRD) Af Amer 43 L, Est GFR ( MDRD) Non-Af 35 L, BUN/Creatinine Ratio 32.8 H, Glucose 124 H, Calcium 7.7 L, Phosphorus 3.3, Magnesium 1.7 11/27/17 07:00: APTT 136.6 H* 11/27/17 10:30: APTT 37.5 H 11/27/17 16:30: APTT 41.7 H Rhythm: Sinus rhythm; PVCs Medical Necessity - Tobacco Use Smoking Status: Former smoker Assessment/Plan 1. Hypotension The etiology of the patient's hypotension may be multifactorial. This could be related to a combination of his underlying multiple medical issues including his cardiovascular disease process with diminished LV systolic function, medication effect leading to decreased intravascular volume, as well as noncardiovascular issues such as infectious disease related issues. At the present time his medications have been adjusted. He had been on previous higher dose beta-pramod therapy and diuretic therapy with both furosemide and Aldactone. His medications have been adjusted to low-dose beta- pramod therapy and temporarily holding diuretic therapy. At the same time he has received an element of IV fluids. However, based upon ongoing concerns of hypotension, especially in light of potential underlying infectious disease related issues, he has been placed on IV [id number]. He continues to receive IV antibiotics. 2. Left ventricular apical thrombus This appears compatible with his underlying history of severe ischemic mediated cardiomyopathy and left ventricular wall motion abnormalities and diminished LV systolic function. The present time it would be recommended that he continue anticoagulant therapy with IV heparin. As previously noted, if he is not in need of any additional invasive procedures then he could be placed on warfarin/Coumadin therapy. He would need continued bridging anticoagulant therapy with IV heparin until his INR is therapeutic. 3. Chronic systolic CHF The patient does have a history of chronic systolic CHF. At the moment he appears to be without acute symptoms. He will need to continue to be monitored. He may eventually need his medications readjusted to balance his volume status if he develops signs of volume overload. 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 Certainly this can contribute to his symptoms of chronic systolic CHF. He is being treated medically. He does not appear to be an ideal candidate for additional invasive evaluation/care at this time. 5. CAD status post previous CABG and PCI The patient does not appear to have evidence of acute coronary syndrome at this time. He will continue risk factor modification and medical management as he is able to based upon his other concerns with respect to his hypotension, etc. 6. Atrial fibrillation The patient does appear to have a history of underlying atrial fibrillation. It appears to be paroxysmal. He has been treated with rate control therapy and anticoagulant therapy and antiarrhythmic therapy. He will need to continue his combined medication as tolerated. Of note he is on antiarrhythmic therapy with dronedarone/Multaq. 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 area he stated he was intolerant of other medications such as amiodarone. This was based upon concerns of his underlying pulmonary disease process. There are concerns with respect to using this particular medication in patients with congestive heart failure. However he appears to have been stable on this medication without adverse event thus far. Depending upon his clinical course this may have to be revisited and/or changed over time. 7. Ventricular tachycardia Again he has a history of underlying ventricular dysrhythmias. He has been on beta-pramod therapy. He does have an ICD in place. 8. ICD His ICD has been evaluated in the past. It has been functioning appropriately. Will be followed and reassessed as needed. 9. Hyperlipidemia He can continue medical management as deemed appropriate. 10. Hypertension He does have a history of previous hypertension. However at the moment he has been hypotensive. Thus his medications are being adjusted. 11. Diabetes mellitus He will continue medical therapy per internal medicine. 12. Chronic renal insufficiency His creatinine level appears to be slightly improved today. This will need to be followed as he goes through his hospitalization. 13. DVT: History of He does have a history of DVT. He has been treated for this in the past. He will need to be monitored for any obvious recurrence and reassessed as deemed appropriate. 14. COPD He does have a history of underlying COPD. He will continue with his care per internal medicine and pulmonology. Overall, at the present time, from a cardiovascular standpoint, the patient will continue to be monitored. His medications will be adjusted to hopefully continue to benefit his cardiovascular status and avoid any obvious adverse effects. He does not appear an ideal candidate at this time for additional invasive evaluation or care. Comment: The above was discussed with the patient and his spouse. This note was generated with [employer] software. It may contain incorrect words, spelling, and punctuation that were not noted in checking the note before signing.
[2017-11-27] MEDS: Carvedilol 3.125 MG TABLET PO (23:29)
[2017-11-27] MEDS: Pravastatin 20 MG Tablet PO (23:30)
[2017-11-28] VITALS (42 sets, daily range): BP systolic 83–115; BP diastolic 58–99; PULSE 60–85; RESP 12–26; TEMP 36.3–37; O2SAT 96–100
[2017-11-28 00:02] LABS: Partial Thromboplast Time 66.2 Seconds (24.1-36.2)
[2017-11-28 05:10] LABS: Absolute Lymphocyte Count 2.43 X10^3/ul (0.83-4.51); Absolute Neutrophil Count 9.8 X10^3/uL (2.0-7.7); Basophil# 0.01 X10^3/uL; Basophil% 0.1 % (0-1); Eosinophil# 0.07 X10^3/uL; Eosinophils% 0.5 % (0-5); Hematocrit 32.9 % (40-54); Hemoglobin 10.7 g/dl (13.0-16.5); Lymphocyte # 2.43 X10^3/ul (4.0); Lymphocyte % 17.1 % (19-41); Mean Corp Hgb Conc 32.5 g/gl (32-36); Mean Corpuscular Hgb 29.4 pg (27.0-32.0); Mean Corpuscular Volume 90.4 fL (80-94); Mean Platelet Vol. 10.8 fl (6.2-12.0); Neutrophil % 69.1 % (47-70); Platelet Count 186 K/mm3 (150-450); RBC Distribution Width CV 19.7 % (11.6-14.6); RBC Distribution Width SD 56.3 fl (35.1-43.9); Red Blood Count 3.64 M/mm3 (4.6-6.2); White Blood Count 14.2 K/mm3 (4.4-11.0)
[2017-11-28 05:21] LABS: Partial Thromboplast Time 68.9 Seconds (24.1-36.2)
[2017-11-28 05:22] LABS: POSITIVE COUNT NO; POSITIVE MORPHOLOGY NO
[2017-11-28 05:26] LABS: Anion Gap 7 (5-15); BUN 66 mg/dL (7-18); BUN/Creat Ratio 38.8 RATIO (10-20); Calcium,Total 7.6 mg/dL (8.5-10.1); Chloride 106 mmol/L (98-107); EST Glomerular Filtration Rate 41 mL/min (>60); Est Glom Filt Rate - Afr Amer 50 mL/min (>60); Estimated Creatinine Clearance 31.27 ml/min; Glucose 86 mg/dL (74-106); Sodium Level 139 mmol/L (136-145)
[2017-11-28 05:38] LABS: Differential Comment SCANNED; Differential Indicated SCAN CRITERIA MET; Hypochromasia 1+; Macrocytosis 1+; POSITIVE DIFFERENTIAL YES; Target Cells 2+
[2017-11-28] MEDS: Levothyroxine 75 MCG Tablet PO (06:25)
[2017-11-28] MEDS: Menthol/Lanolin/Calamine/Znox 113 GM Tube 1 APPLIC TOPICAL ×3 (06:25→22:01)
[2017-11-28] MEDS: Metoclopramide 10 MG Tablet PO (06:25)
[2017-11-28] MEDS: 0.9% NaCl Peripheral Flush Adult/Peds IV ×2 (06:29→10:18)
--- NOTE | 2017-11-28 06:56 | PN_ITS ---
Subjective: Patient did okay overnight. Patient has been on Levophed at 5 mcg secondary to hypotension. Patient denies any new symptoms. No bleeding complications have been reported and PTT is now within therapeutic index. No fevers have been reported. Patient does occasionally get production when using airway clearance. General: Alert, Oriented x3, Cooperative, No apparent distress, - - Obese. Speaking in full sentences. HEENT: Atraumatic, PERRLA, EOMI, Normocephalic, - - No scleral icterus or injection noted. Oral: Moist Mucosa, No Gingival or Mucosal Lesions/ Ulcerations Neck: Supple, No JVD, No Nodes, Trachea Midline Lungs: No rhonchi, No wheeze, No rales, Diminished, - - Symmetric expansion. No dullness to percussion. Cardiovascular: Regular rate, Regular Rhythm, Normal S1, Normal S2, Murmur, No rub noted, No Gallop Abdomen: Bowel Sounds Present, Soft, Non Tender, Non-Distended, Obese Extremities: No cyanosis, Capillary Refill Less than 3 Seconds, Edema Skin: - - No significant change compared to previous Musculoskeletal: No Tenderness to Palpation of Joints or Extremities, - - Amputations noted of the left hand Lymphatic: No Cervical, Supraclavicular, or Inguinal Adenopathy Neurological: Cranial nerves II-XII grossly intact, Neuro grossly intact, Motor Exam 5/5 strength throughout Psych/Mental Status: Alert and oriented to time, place, person, mood and affect Vital Signs Temp Pulse Resp BP Pulse Ox 36.4 C L 62 19 H 97/62 100 11/28/17 06:00 11/28/17 06:00 11/28/17 06:00 11/28/17 06:00 11/28/17 06:00 Oxygen Flow Rate (L/min) 3 Oxygen Delivery Method Nasal Cannula Weight: 97 kg Body Mass Index (BMI) 33.3 Intake and Output for Last 24 Hours 11/26/17 11/27/17 11/28/17 23:59 23:59 23:59 Intake Total 1819 / 1819 1417.7 / 1417.7 102 / 102 Output Total 305 / 305 800 / 800 300 / 300 Balance 1514 / 1514 617.7 / 617.7 -198 / -198 Labs (Last 48 Hours) 11/26/17 11/26/17 11/26/17 01:50 18:17 23:40 WBC RBC Hgb Hct MCV MCH MCHC RDW RDW Differential Plt Count MPV Immature Gran % (Auto) Neut % (Auto) Lymph % (Auto) [place] % (Auto) Eos % (Auto) Baso % (Auto) Absolute Neuts (auto) Absolute Lymphs (auto) Total Counted Differential Comment Hypochromasia Macrocytosis Target Cells APTT > 250.0 H* > 250.0 H* Sodium Potassium Chloride Carbon Dioxide Anion Gap BUN Creatinine Estim Creat Clear Calc Est GFR (MDRD) Af Amer Est GFR (MDRD) Non-Af BUN/Creatinine Ratio Glucose Calcium Phosphorus Magnesium Cortisol 12.00 11/27/17 11/27/17 11/27/17 04:05 04:05 04:05 WBC 17.1 H RBC 3.82 L Hgb 10.9 L Hct 34.5 L MCV 90.3 MCH 28.5 MCHC 31.6 L RDW 19.0 H RDW Differential 57.9 H Plt Count 184 MPV 10.5 Immature Gran % (Auto) 0.900 Neut % (Auto) 83.7 H Lymph % (Auto) 11.3 L [place]th[place]omew % (Auto) 4.0 Eos % (Auto) 0.0 Baso % (Auto) 0.1 Absolute Neuts (auto) 14.3 H Absolute Lymphs (auto) 1.93 Total Counted Not Reportable Differential Comment Hypochromasia Macrocytosis Target Cells APTT > 250.0 H* Sodium 139 Potassium 5.7 H Chloride 106 Carbon Dioxide 26.0 Anion Gap 7 BUN 64 H Creatinine 1.95 H Estim Creat Clear Calc 27.26 Est GFR (MDRD) Af Amer 43 L Est GFR (MDRD) Non-Af 35 L BUN/Creatinine Ratio 32.8 H Glucose 124 H Calcium 7.7 L Phosphorus 3.3 Magnesium 1.7 Cortisol 11/27/17 11/27/17 11/27/17 07:00 10:30 16:30 WBC RBC Hgb Hct MCV MCH MCHC RDW RDW Differential Plt Count MPV Immature Gran % (Auto) Neut % (Auto) Lymph % (Auto) [place] % (Auto) Eos % (Auto) Baso % (Auto) Absolute Neuts (auto) Absolute Lymphs (auto) Total Counted Differential Comment Hypochromasia Macrocytosis Target Cells APTT 136.6 H* 37.5 H 41.7 H Sodium Potassium Chloride Carbon Dioxide Anion Gap BUN Creatinine Estim Creat Clear Calc Est GFR (MDRD) Af Amer Est GFR (MDRD) Non-Af BUN/Creatinine Ratio Glucose Calcium Phosphorus Magnesium Cortisol 11/27/17 11/28/17 11/28/17 23:13 04:52 04:52 WBC 14.2 H RBC 3.64 L Hgb 10.7 L Hct 32.9 L MCV 90.4 MCH 29.4 MCHC 32.5 RDW 19.7 H RDW Differential 56.3 H Plt Count 186 MPV 10.8 Immature Gran % (Auto) 1.200 H Neut % (Auto) 69.1 Lymph % (Auto) 17.1 L [place]tholomew % (Auto) 12.0 H Eos % (Auto) 0.5 Baso % (Auto) 0.1 Absolute Neuts (auto) 9.8 H Absolute Lymphs (auto) 2.43 Total Counted Not Reportable Differential Comment SCANNED Hypochromasia 1+ Macrocytosis 1+ Target Cells 2+ APTT 66.2 H Sodium 139 Potassium 5.0 Chloride 106 Carbon Dioxide 26.0 Anion Gap 7 BUN 66 H Creatinine 1.70 H Estim Creat Clear Calc 31.27 Est GFR (MDRD) Af Amer 50 L Est GFR (MDRD) Non-Af 41 L BUN/Creatinine Ratio 38.8 H Glucose 86 Calcium 7.6 L Phosphorus Magnesium Cortisol 11/28/17 04:52 WBC RBC Hgb Hct MCV MCH MCHC RDW RDW Differential Plt Count MPV Immature Gran % (Auto) Neut % (Auto) Lymph % (Auto) [place] % (Auto) Eos % (Auto) Baso % (Auto) Absolute Neuts (auto) Absolute Lymphs (auto) Total Counted Differential Comment Hypochromasia Macrocytosis Target Cells APTT 68.9 H Sodium Potassium Chloride Carbon Dioxide Anion Gap BUN Creatinine Estim Creat Clear Calc Est GFR (MDRD) Af Amer Est GFR (MDRD) Non-Af BUN/Creatinine Ratio Glucose Calcium Phosphorus Magnesium Cortisol Microbiology 11/27/17 07:00 Sputum, Expectorated/Coughed Gram Stain - Final Medical Necessity - Tobacco Use Smoking Status: Former smoker Assessment/Plan All Active Problems (Last Reviewed 11/26/17 @ 01:32 by Mustapha Hess DO) FALL on knees and elbow (Acute) BILA KNEES LACERATION AND BLEEDING (Acute) gisel ON ckd (Acute) Fall (Acute) Left radial fracture (Acute) Knee laceration (Acute) Cellulitis (Acute) Acute on chronic kidney failure (Acute) Shock (Acute) Hyperkalemia (Acute) Leukocytosis (Acute) Hypotension (Acute) Left ventricular thrombosis (Acute) Left leg cellulitis (Acute) Unspecified open wound, left foot, initial encounter (Acute) Avulsion of skin of left hand (Resolved) Avulsion of skin of right forearm (Resolved) Avulsion of skin of right hand (Resolved) History of subdural hemorrhage (Resolved) Hypotension (Resolved) Rhinovirus (Resolved) Supratherapeutic INR (Resolved) RECOMMENDATIONS: 1. Continue empiric antibiotics and anticoagulation 2. Wean Levophed as tolerated 3. Okay to wean oxygen from my perspective 4. Await sensitivities IMPRESSIONS: 1. Shock Probable multifactorial etiology. Patient does have significantly depressed heart function was found to have left apical thrombus. Patient is currently on anticoagulation and tolerating well. Patient does have a left lung infiltrate and was initiated on antibiotics. However, patient continues to deny any shortness of breath or productive cough. Gram stain from sputum is grossly unremarkable. We will continue with empiric antibiotics for now. Creatinine does appear to be improving with supportive blood pressure. May consider initiation of Midodrine therapy. 2. 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 New echocardiogram shows an apical thrombus. Patient will be initiated on anticoagulation with heparin given renal dysfunction. Patient seen by Dr. Hewitt. Appreciate input. From my perspective, patient can likely be transitioned to Coumadin therapy as no interventions are required at this time. A 10 mg dose of Coumadin will be given today. Daily INRs have been ordered. 3. 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 Patient has not been compliant with noninvasive therapy for sleep in the past. TIME: 33 minutes critical care time spent addressing patient's hypotension, congestive heart failure, new apical thrombus, review of all data and collaboration with care team (5:30 AM to 6:40 AM) Code Visit 9xxxx: [id number] Critical care first hour
[2017-11-28] MEDS: Ipratropium/Albuterol Sulfate 3 ML AMPUL.NEB INHALATION ×3 (07:13→19:07)
[2017-11-28] MEDS: Budesonide Respules 0.5 MG/2 ML AMPUL.NEB. INHALATION ×2 (07:13→19:07)
[2017-11-28] MEDS: Aspirin 81 MG TAB.CHEW PO (10:19)
[2017-11-28] MEDS: Carvedilol 3.125 MG TABLET PO (10:19)
[2017-11-28] MEDS: Lidocaine 5% Patch 1 PATCH TOPICAL (10:20)
[2017-11-28] MEDS: Venlafaxine XR 75 MG Capsule PO (10:20)
[2017-11-28] MEDS: Pantoprazole Sodium 20 MG Tablet PO ×2 (10:21→21:59)
[2017-11-28] MEDS: Midodrine HCl 5 MG Tablet 10 MG PO ×2 (10:24→21:59)
--- NOTE | 2017-11-28 10:26 | CASEMGMT ---
SW participated in ICU rounds this morning, pt may leave ICU tomorrow. SW let pt know that TCU still has a bed for him when ready. SW did call to check in on her, there was no answer. SW called Jazlyn in TCU, let her know pt may be able to return to TCU on the weekend. Green sheet on the chart in event pt can return to TCU on the weekend. SELAM Mcallister, CAGE MANAGER
[2017-11-28] MEDS: Piperacil/Tazobactam 3.375 GM/50 ML ML IV ×2 (10:35→22:04)
[2017-11-28] MEDS: CHLORHEXIDINE GLUC 2% CLOTH 1 EACH TOWELETTE TOPICAL (10:36)
--- NOTE | 2017-11-28 16:55 | PCM.PN.HOSP ---
Patient Problems: Active and Suspected Problems (Last Reviewed 11/26/17 @ 01:32 by Mustapha Hess DO) Shock (Acute) Hyperkalemia (Acute) Leukocytosis (Acute) Hypotension (Acute) Left ventricular thrombosis (Acute) Subjective: CC: Follow-up on hypotension Objective: The patient denies any dizziness, shortness of breath palpitations or rapid heartbeat. He is still requiring Levophed for his hypotension. Vitals/I&O's: Vital Signs Temp Pulse Resp BP Pulse Ox 97.8 F 60 14 83/59 L 100 11/28/17 12:00 11/28/17 14:00 11/28/17 14:00 11/28/17 14:00 11/28/17 14:00 Oxygen Flow Rate (L/min) 2 Oxygen Delivery Method Nasal Cannula Weight: 97 kg Body Mass Index (BMI) 33.3 Intake and Output for Last 24 Hours 11/26/17 11/27/17 11/28/17 23:59 23:59 23:59 Intake Total 1819 / 1819 1417.7 / 1417.7 908 / 908 Output Total 305 / 305 800 / 800 750 / 750 Balance 1514 / 1514 617.7 / 617.7 158 / 158 General: Alert, Oriented x3 Oral: Moist Mucosa Neck: Supple Lungs: Clear to auscultation Cardiovascular: Regular rate, Normal S1, Normal S2 Abdomen: Bowel Sounds Present, Soft, Non Tender Extremities: No edema Neurological: Cranial nerves II-XII grossly intact Microbiology Past 72 Hours 11/27/17 07:00 Sputum, Expectorated/Coughed Gram Stain - Final 11/27/17 07:00 Sputum, Expectorated/Coughed Respiratory Culture - Preliminary Gram negative carla Laboratory Results 11/27/17 16:30: APTT 41.7 H 11/27/17 23:13: APTT 66.2 H 11/28/17 04:52: WBC 14.2 H, RBC 3.64 L, Hgb 10.7 L, Hct 32.9 L, MCV 90.4, MCH 29.4, MCHC 32.5, RDW 19.7 H, RDW Differential 56.3 H, Plt Count 186, MPV 10.8, Immature Gran % (Auto) 1.200 H, Neut % (Auto) 69.1, Lymph % (Auto) 17.1 L, [place] % (Auto) 12.0 H, Eos % (Auto) 0.5, Baso % (Auto) 0.1, Absolute Neuts (auto) 9.8 H, Absolute Lymphs (auto) 2.43, Total Counted Not Reportable, Differential Comment SCANNED, Hypochromasia 1+, Macrocytosis 1+, Target Cells 2+ 11/28/17 04:52: Sodium 139, Potassium 5.0, Chloride 106, Carbon Dioxide 26.0, Anion Gap 7, BUN 66 H, Creatinine 1.70 H, Estim Creat Clear Calc 31.27, Est GFR (MDRD) Af Amer 50 L, Est GFR (MDRD) Non-Af 41 L, BUN/Creatinine Ratio 38.8 H, Glucose 86, Calcium 7.6 L 11/28/17 04:52: APTT 68.9 H Current Medications Albuterol Sulfate (Ventolin Aerosols) 2.5 mg INHALATION Q6H PRN PRN PRN Reason: COUGH/SOB Albuterol/Ipratropium (Duoneb) 3 ml INHALATION Q6HWA.RT [facility] Last Admin: 11/28/17 13:34 Dose: 3 ml Aspirin (Aspirin, Baby) 81 mg PO DAILY@0800 [facility] Last Admin: 11/28/17 10:19 Dose: 81 mg Budesonide (Pulmicort Aerosol) 0.5 mg INHALATION BID.RT [facility] Last Admin: 11/28/17 07:13 Dose: 0.5 mg Calamine/Phenol (Calmoseptine Ointment) 1 applic TOPICAL TID [facility] PRN Reason: Protocol Last Admin: 11/28/17 13:00 Dose: 1 applicatio Carvedilol (Coreg) 3.125 mg PO BID [facility] Last Admin: 11/28/17 10:19 Dose: 3.125 mg Chlorhexidine Gluconate () 1 each TOPICAL DAILY [facility] Last Admin: 11/28/17 10:36 Dose: 1 each Dronedarone (Multaq) 400 mg PO BID [facility] Last Admin: 11/28/17 10:21 Dose: 400 mg Heparin Sodium (Porcine) () 0 units IV UD PRN PRN Reason: Protocol Last Admin: 11/27/17 17:26 Dose: 1,000 units Sodium Chloride () 250 mls @ 15 mls/hr IV .[id number] PRN PRN Reason: SALINE FLUSH Last Admin: 11/27/17 11:07 Dose: 15 mls/hr Piperacillin Sod/Tazobactam Sod (Zosyn) 3.375 gm in 50 mls @ 12.5 mls/hr IV Q12 [facility] Last Admin: 11/28/17 10:35 Dose: 12.5 mls/hr Heparin Sodium/Sodium Chloride () 25,000 unit in 250 mls @ 14 mls/hr IV .[id number] [facility]; As Directed PRN Reason: Protocol Last Admin: 11/28/17 01:42 Dose: 14 mls/hr Norepinephrine Bitartrate 8 mg (/ Dextrose) 258 mls @ 9.67 mls/hr IV .[id number] [facility]; 5 MCG/MIN PRN Reason: Protocol Last Admin: 11/28/17 06:29 Dose: 9.67 mls/hr Levothyroxine Sodium (Synthroid) 75 mcg PO MoTuWeThFrSa@0600 [facility] Last Admin: 11/28/17 06:25 Dose: 75 mcg Levothyroxine Sodium (Synthroid) 150 mcg PO Patel@0600 [facility] Lidocaine (Lidoderm Patch) 1 patch TOPICAL DAILY [facility] PRN Reason: Protocol Last Admin: 11/28/17 10:20 Dose: 1 patch Magnesium Hydroxide (Milk Of Magnesia) 30 ml PO DAILY PRN PRN PRN Reason: Constipation Midodrine (Proamatine) 10 mg PO TID [facility] Last Admin: 11/28/17 10:24 Dose: 10 mg Nutritional Formula (David - [place] Flavor) 1 packet PO BIDCM [facility] Last Admin: 11/28/17 10:19 Dose: 1 packet Pantoprazole Sodium (Protonix) 20 mg PO BID [facility] Last Admin: 11/28/17 10:21 Dose: 20 mg Pravastatin Sodium (Pravachol) 20 mg PO QHS [facility] Last Admin: 11/27/17 23:30 Dose: 20 mg Sodium Chloride () 5 - 30 ml IV UD PRN PRN Reason: SALINE FLUSH Last Admin: 11/28/17 10:18 Dose: 20 ml Sodium Chloride (Rapides Nasal [place]) 2 spray NASAL TID PRN PRN PRN Reason: NASAL DRYNESS Last Admin: 11/27/17 17:26 Dose: 2 spray Venlafaxine HCl (Effexor Xr) 75 mg PO DAILY [facility] Last Admin: 11/28/17 10:20 Dose: 75 mg Medical Necessity - Tobacco Use Smoking Status: Former smoker Assessment/Plan All Active Problems (Last Reviewed 11/26/17 @ 01:32 by Mustapha Hess DO) FALL on knees and elbow (Acute) BILA KNEES LACERATION AND BLEEDING (Acute) gisel ON ckd (Acute) Fall (Acute) Left radial fracture (Acute) Knee laceration (Acute) Cellulitis (Acute) Acute on chronic kidney failure (Acute) Shock (Acute) Hyperkalemia (Acute) Leukocytosis (Acute) Hypotension (Acute) Left ventricular thrombosis (Acute) Left leg cellulitis (Acute) Unspecified open wound, left foot, initial encounter (Acute) Avulsion of skin of left hand (Resolved) Avulsion of skin of right forearm (Resolved) Avulsion of skin of right hand (Resolved) History of subdural hemorrhage (Resolved) Hypotension (Resolved) Rhinovirus (Resolved) Supratherapeutic INR (Resolved) 1. Hypotension; he is symptomatic, on Levophed, will wean as tolerated. He has been started on midodrine. 2. Apical thrombus; he is on heparin drip and will transition to Coumadin 3. Cardiomyopathy s/p ICD.. 4. CAD s/p CABG; echo showed an EF ~30%, he does not appear to have clinical evidence of congestive heart failure. 5. Left lobe pneumonia; the patient is on IV Zosyn 6. Leukocytosis secondary to infectious process above, proving. 7. Chronic atrial fibrillation; he is on Multaq, now anticoagulated. 8. Hypothyroidism; he is on Synthroid. Code Visit Inpatient E&M: 13788 Subs Hosp L2
--- NOTE | 2017-11-28 16:58 | PN_ITS ---
Patient Problems: Active and Suspected Problems (Last Reviewed 11/26/17 @ 01:32 by Mustapha Hess DO) Shock (Acute) Hyperkalemia (Acute) Leukocytosis (Acute) Hypotension (Acute) Left ventricular thrombosis (Acute) Subjective: CC: Follow-up on hypotension Objective: The patient denies any dizziness, shortness of breath palpitations or rapid heartbeat. He is still requiring Levophed for his hypotension. Vitals/I&O's: Vital Signs Temp Pulse Resp BP Pulse Ox 97.8 F 60 14 83/59 L 100 11/28/17 12:00 11/28/17 14:00 11/28/17 14:00 11/28/17 14:00 11/28/17 14:00 Oxygen Flow Rate (L/min) 2 Oxygen Delivery Method Nasal Cannula Weight: 97 kg Body Mass Index (BMI) 33.3 Intake and Output for Last 24 Hours 11/26/17 11/27/17 11/28/17 23:59 23:59 23:59 Intake Total 1819 / 1819 1417.7 / 1417.7 908 / 908 Output Total 305 / 305 800 / 800 750 / 750 Balance 1514 / 1514 617.7 / 617.7 158 / 158 General: Alert, Oriented x3 Oral: Moist Mucosa Neck: Supple Lungs: Clear to auscultation Cardiovascular: Regular rate, Normal S1, Normal S2 Abdomen: Bowel Sounds Present, Soft, Non Tender Extremities: No edema Neurological: Cranial nerves II-XII grossly intact Microbiology Past 72 Hours 11/27/17 07:00 Sputum, Expectorated/Coughed Gram Stain - Final 11/27/17 07:00 Sputum, Expectorated/Coughed Respiratory Culture - Preliminary Gram negative carla Laboratory Results 11/27/17 16:30: APTT 41.7 H 11/27/17 23:13: APTT 66.2 H 11/28/17 04:52: WBC 14.2 H, RBC 3.64 L, Hgb 10.7 L, Hct 32.9 L, MCV 90.4, MCH 29.4, MCHC 32.5, RDW 19.7 H, RDW Differential 56.3 H, Plt Count 186, MPV 10.8, Immature Gran % (Auto) 1.200 H, Neut % (Auto) 69.1, Lymph % (Auto) 17.1 L, [place] % (Auto) 12.0 H, Eos % (Auto) 0.5, Baso % (Auto) 0.1, Absolute Neuts (auto) 9.8 H, Absolute Lymphs (auto) 2.43, Total Counted Not Reportable, Differential Comment SCANNED, Hypochromasia 1+, Macrocytosis 1+, Target Cells 2+ 11/28/17 04:52: Sodium 139, Potassium 5.0, Chloride 106, Carbon Dioxide 26.0, Anion Gap 7, BUN 66 H, Creatinine 1.70 H, Estim Creat Clear Calc 31.27, Est GFR (MDRD) Af Amer 50 L, Est GFR (MDRD) Non-Af 41 L, BUN/Creatinine Ratio 38.8 H, Glucose 86, Calcium 7.6 L 11/28/17 04:52: APTT 68.9 H Current Medications Albuterol Sulfate (Ventolin Aerosols) 2.5 mg INHALATION Q6H PRN PRN PRN Reason: COUGH/SOB Albuterol/Ipratropium (Duoneb) 3 ml INHALATION Q6HWA.RT [facility] Last Admin: 11/28/17 13:34 Dose: 3 ml Aspirin (Aspirin, Baby) 81 mg PO DAILY@0800 [facility] Last Admin: 11/28/17 10:19 Dose: 81 mg Budesonide (Pulmicort Aerosol) 0.5 mg INHALATION BID.RT [facility] Last Admin: 11/28/17 07:13 Dose: 0.5 mg Calamine/Phenol (Calmoseptine Ointment) 1 applic TOPICAL TID [facility] PRN Reason: Protocol Last Admin: 11/28/17 13:00 Dose: 1 applicatio Carvedilol (Coreg) 3.125 mg PO BID [facility] Last Admin: 11/28/17 10:19 Dose: 3.125 mg Chlorhexidine Gluconate () 1 each TOPICAL DAILY [facility] Last Admin: 11/28/17 10:36 Dose: 1 each Dronedarone (Multaq) 400 mg PO BID [facility] Last Admin: 11/28/17 10:21 Dose: 400 mg Heparin Sodium (Porcine) () 0 units IV UD PRN PRN Reason: Protocol Last Admin: 11/27/17 17:26 Dose: 1,000 units Sodium Chloride () 250 mls @ 15 mls/hr IV .[id number] PRN PRN Reason: SALINE FLUSH Last Admin: 11/27/17 11:07 Dose: 15 mls/hr Piperacillin Sod/Tazobactam Sod (Zosyn) 3.375 gm in 50 mls @ 12.5 mls/hr IV Q12 [facility] Last Admin: 11/28/17 10:35 Dose: 12.5 mls/hr Heparin Sodium/Sodium Chloride () 25,000 unit in 250 mls @ 14 mls/hr IV .[id number] [facility]; As Directed PRN Reason: Protocol Last Admin: 11/28/17 01:42 Dose: 14 mls/hr Norepinephrine Bitartrate 8 mg (/ Dextrose) 258 mls @ 9.67 mls/hr IV .[id number] [facility]; 5 MCG/MIN PRN Reason: Protocol Last Admin: 11/28/17 06:29 Dose: 9.67 mls/hr Levothyroxine Sodium (Synthroid) 75 mcg PO MoTuWeThFrSa@0600 [facility] Last Admin: 11/28/17 06:25 Dose: 75 mcg Levothyroxine Sodium (Synthroid) 150 mcg PO Patel@0600 [facility] Lidocaine (Lidoderm Patch) 1 patch TOPICAL DAILY [facility] PRN Reason: Protocol Last Admin: 11/28/17 10:20 Dose: 1 patch Magnesium Hydroxide (Milk Of Magnesia) 30 ml PO DAILY PRN PRN PRN Reason: Constipation Midodrine (Proamatine) 10 mg PO TID [facility] Last Admin: 11/28/17 10:24 Dose: 10 mg Nutritional Formula (David - [place] Flavor) 1 packet PO BIDCM [facility] Last Admin: 11/28/17 10:19 Dose: 1 packet Pantoprazole Sodium (Protonix) 20 mg PO BID [facility] Last Admin: 11/28/17 10:21 Dose: 20 mg Pravastatin Sodium (Pravachol) 20 mg PO QHS [facility] Last Admin: 11/27/17 23:30 Dose: 20 mg Sodium Chloride () 5 - 30 ml IV UD PRN PRN Reason: SALINE FLUSH Last Admin: 11/28/17 10:18 Dose: 20 ml Sodium Chloride (Yellow Medicine Nasal [place]) 2 spray NASAL TID PRN PRN PRN Reason: NASAL DRYNESS Last Admin: 11/27/17 17:26 Dose: 2 spray Venlafaxine HCl (Effexor Xr) 75 mg PO DAILY [facility] Last Admin: 11/28/17 10:20 Dose: 75 mg Medical Necessity - Tobacco Use Smoking Status: Former smoker Assessment/Plan All Active Problems (Last Reviewed 11/26/17 @ 01:32 by Mustapha Hess DO) FALL on knees and elbow (Acute) BILA KNEES LACERATION AND BLEEDING (Acute) gisel ON ckd (Acute) Fall (Acute) Left radial fracture (Acute) Knee laceration (Acute) Cellulitis (Acute) Acute on chronic kidney failure (Acute) Shock (Acute) Hyperkalemia (Acute) Leukocytosis (Acute) Hypotension (Acute) Left ventricular thrombosis (Acute) Left leg cellulitis (Acute) Unspecified open wound, left foot, initial encounter (Acute) Avulsion of skin of left hand (Resolved) Avulsion of skin of right forearm (Resolved) Avulsion of skin of right hand (Resolved) History of subdural hemorrhage (Resolved) Hypotension (Resolved) Rhinovirus (Resolved) Supratherapeutic INR (Resolved) 1. Hypotension; he is symptomatic, on Levophed, will wean as tolerated. He has been started on midodrine. 2. Apical thrombus; he is on heparin drip and will transition to Coumadin 3. Cardiomyopathy s/p ICD.. 4. CAD s/p CABG; echo showed an EF ~30%, he does not appear to have clinical evidence of congestive heart failure. 5. Left lobe pneumonia; the patient is on IV Zosyn 6. Leukocytosis secondary to infectious process above, proving. 7. Chronic atrial fibrillation; he is on Multaq, now anticoagulated. 8. Hypothyroidism; he is on Synthroid. Code Visit Inpatient E&M: 58759 Subs Hosp L2
--- NOTE | 2017-11-28 17:45 | PN.CARD_ITS ---
Subjectve: The patient was evaluated earlier this day. He appeared to be awake and alert. He had no acute complaints of chest discomfort or worsening shortness of breath or dyspnea. Objective: Vital Signs Temp Pulse Resp BP Pulse Ox 97.8 F 60 14 83/59 L 100 11/28/17 12:00 11/28/17 14:00 11/28/17 14:00 11/28/17 14:00 11/28/17 16:00 Oxygen Flow Rate (L/min) 2 Oxygen Delivery Method Nasal Cannula Weight: 213 lb 13.574 oz Body Mass Index (BMI) 33.3 Intake and Output for Last 24 Hours 11/26/17 11/27/17 11/28/17 23:59 23:59 23:59 Intake Total 1819 / 1819 1417.7 / 1417.7 908 / 908 Output Total 305 / 305 800 / 800 750 / 750 Balance 1514 / 1514 617.7 / 617.7 158 / 158 General: Awake, Alert, Oriented x 3, Cooperative, No Acute Distress Neck: No JVD Lungs: Clear to auscultation Cardiovascular: Regular Rhythm, Premature Ectopic Beats, Normal S1, Normal S2 Abdomen: Bowel Sounds Present, Soft, Non Tender Extremities: Mild RLE Edema, Mild LLE Edema 11/27/17 23:13: APTT 66.2 H 11/28/17 04:52: WBC 14.2 H, RBC 3.64 L, Hgb 10.7 L, Hct 32.9 L, MCV 90.4, MCH 29.4, MCHC 32.5, RDW 19.7 H, RDW Differential 56.3 H, Plt Count 186, MPV 10.8, Immature Gran % (Auto) 1.200 H, Neut % (Auto) 69.1, Lymph % (Auto) 17.1 L, [place] % (Auto) 12.0 H, Eos % (Auto) 0.5, Baso % (Auto) 0.1, Absolute Neuts (auto) 9.8 H, Total Counted Not Reportable 11/28/17 04:52: Sodium 139, Potassium 5.0, Chloride 106, Carbon Dioxide 26.0, Anion Gap 7, BUN 66 H, Creatinine 1.70 H, Est GFR (MDRD) Af Amer 50 L, Est GFR ( MDRD) Non-Af 41 L, BUN/Creatinine Ratio 38.8 H, Glucose 86, Calcium 7.6 L 11/28/17 04:52: APTT 68.9 H Rhythm: Sinus rhythm; PVCs Medical Necessity - Tobacco Use Smoking Status: Former smoker Assessment/Plan 1. Hypotension The etiology of the patient's hypotension may be multifactorial. This could be related to a combination of his underlying multiple medical issues including his cardiovascular disease process with diminished LV systolic function, medication effect leading to decreased intravascular volume, as well as noncardiovascular issues such as infectious disease related issues. At the present time his medications have been adjusted. He had been on previous higher dose beta-pramod therapy and diuretic therapy with both furosemide and Aldactone. His medications have been adjusted to low-dose beta- pramod therapy and temporarily holding diuretic therapy. At the same time he has received an element of IV fluids. He has been weaned off his IV vasopressor agent at this time. He continues to receive IV antibiotics. 2. Left ventricular apical thrombus This appears compatible with his underlying history of severe ischemic mediated cardiomyopathy and left ventricular wall motion abnormalities and diminished LV systolic function. The present time it would be recommended that he continue anticoagulant therapy with IV heparin. As previously noted, if he is not in need of any additional invasive procedures then he could be placed on warfarin/Coumadin therapy. He would need continued bridging anticoagulant therapy with IV heparin until his INR is therapeutic. 3. Chronic systolic CHF The patient does have a history of chronic systolic CHF. At the moment he appears to be without acute symptoms. He will need to continue to be monitored. He may eventually need his medications readjusted to balance his volume status if he develops signs of volume overload. 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 Certainly this can contribute to his symptoms of chronic systolic CHF. He is being treated medically. He does not appear to be an ideal candidate for additional invasive evaluation/care at this time. 5. CAD status post previous CABG and PCI The patient does not appear to have evidence of acute coronary syndrome at this time. He will continue risk factor modification and medical management as he is able to based upon his other concerns with respect to his hypotension, etc. 6. Atrial fibrillation The patient does appear to have a history of underlying atrial fibrillation. It appears to be paroxysmal. He has been treated with rate control therapy and anticoagulant therapy and antiarrhythmic therapy. He will need to continue his combined medication as tolerated. Of note he is on antiarrhythmic therapy with dronedarone/Multaq. 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 This was based upon concerns of his underlying pulmonary disease process. There are concerns with respect to using this particular medication in patients with congestive heart failure. However he appears to have been stable on this medication without adverse event thus far. Depending upon his clinical course this may have to be revisited and/or changed over time. 7. Ventricular tachycardia Again he has a history of underlying ventricular dysrhythmias. He has been on beta-pramod therapy. He does have an ICD in place. 8. ICD His ICD has been evaluated in the past. It has been functioning appropriately. Will be followed and reassessed as needed. 9. Hyperlipidemia He can continue medical management as deemed appropriate. 10. Hypertension He does have a history of previous hypertension. However at the moment he has been hypotensive. Thus his medications are being adjusted. 11. Diabetes mellitus He will continue medical therapy per internal medicine. 12. Chronic renal insufficiency His creatinine level appears to be slightly improved today. This will need to be followed as he goes through his hospitalization. 13. DVT: History of He does have a history of DVT. He has been treated for this in the past. He will need to be monitored for any obvious recurrence and reassessed as deemed appropriate. 14. COPD He does have a history of underlying COPD. He will continue with his care per internal medicine and pulmonology. Comment: The above was discussed with the patient. This note was generated with [employer] dictation software. It may contain incorrect words, spelling, and punctuation that were not noted in checking the note before signing.
[2017-11-28] MEDS: Pravastatin 20 MG Tablet PO (21:59)
[2017-11-29] VITALS (28 sets, daily range): BP systolic 89–120; BP diastolic 57–76; PULSE 60–87; RESP 12–21; TEMP 36.3–36.6; O2SAT 2–100
[2017-11-29] MEDS: Levothyroxine 75 MCG Tablet PO (05:43)
[2017-11-29] MEDS: Midodrine HCl 5 MG Tablet 10 MG PO ×2 (05:43→21:01)
[2017-11-29] MEDS: Menthol/Lanolin/Calamine/Znox 113 GM Tube 1 APPLIC TOPICAL ×3 (05:43→21:09)
[2017-11-29 06:22] LABS: Absolute Lymphocyte Count 2.14 X10^3/ul (0.83-4.51); Absolute Neutrophil Count 7.4 X10^3/uL (2.0-7.7); Differential Indicated SCAN CRITERIA MET; Eosinophil# 0.05 X10^3/uL; Eosinophils% 0.5 % (0-5); Hematocrit 32.7 % (40-54); Hemoglobin 10.7 g/dl (13.0-16.5); Lymphocyte # 2.14 X10^3/ul (4.0); Lymphocyte % 19.6 % (19-41); Mean Corp Hgb Conc 32.7 g/gl (32-36); Mean Corpuscular Hgb 29.6 pg (27.0-32.0); Mean Corpuscular Volume 90.6 fL (80-94); Mean Platelet Vol. 10.9 fl (6.2-12.0); Monocyte# 1.24 X10^3/uL; Monocyte% 11.3 % (0-10); Neutrophil % 67.6 % (47-70); POSITIVE COUNT NO; POSITIVE DIFFERENTIAL NO; POSITIVE MORPHOLOGY YES; Platelet Count 173 K/mm3 (150-450); RBC Distribution Width CV 20.1 % (11.6-14.6); RBC Distribution Width SD 61.2 fl (35.1-43.9); Red Blood Count 3.61 M/mm3 (4.6-6.2); White Blood Count 10.9 K/mm3 (4.4-11.0)
[2017-11-29 06:33] LABS: Anion Gap 6 (5-15); BUN 63 mg/dL (7-18); BUN/Creat Ratio 38.9 RATIO (10-20); Calcium,Total 7.7 mg/dL (8.5-10.1); Chloride 104 mmol/L (98-107); Creatinine, Serum 1.62 mg/dL (0.70-1.30); EST Glomerular Filtration Rate 44 mL/min (>60); Est Glom Filt Rate - Afr Amer 53 mL/min (>60); Estimated Creatinine Clearance 32.82 ml/min; Glucose 69 mg/dL (74-106); Magnesium 1.7 mg/dL (1.6-2.6); Phosphorus 2.8 mg/dL (2.5-4.9); Potassium 4.8 mmol/L (3.5-5.1); Sodium Level 136 mmol/L (136-145)
[2017-11-29 06:34] LABS: Anisocytosis 2+; Hypochromasia 1+; Macrocytosis 1+; Polychromasia RARE
[2017-11-29 06:37] LABS: International Normalized Ratio 1.1; Prothrombin Time (Protime)PT. 14.4 SECONDS (11.7-14.9)
--- NOTE | 2017-11-29 06:39 | PCM.PN.INT ---
Subjective: Patient did well overnight. No acute issues were reported. Patient has been weaned to room air without complications. Patient with no complaints this morning. No fever has been reported. Patient has been off of pressor therapy since approximately 7:30 yesterday morning. Patient tolerating p.o. diet General: Alert, Oriented x3, Cooperative, No apparent distress, - - Obese. Speaking in full sentences. HEENT: Atraumatic, PERRLA, EOMI, Normocephalic, - - No scleral icterus or injection noted. Glasses in place. Oral: Moist Mucosa, No Gingival or Mucosal Lesions/ Ulcerations Neck: Supple, No JVD, No Nodes, Trachea Midline Lungs: No rhonchi, No wheeze, No rales, Diminished, - - Symmetric expansion. No dullness to percussion. Cardiovascular: Regular rate, Regular Rhythm, Normal S1, Normal S2, Murmur, No rub noted, No Gallop Abdomen: Bowel Sounds Present, Soft, Non Tender, Non-Distended, Obese Extremities: No clubbing, No cyanosis, Edema, - - Amputations noted of the left hand Skin: - - No significant change compared to previous Musculoskeletal: No Tenderness to Palpation of Joints or Extremities, No Muscle Wasting Lymphatic: No Cervical, Supraclavicular, or Inguinal Adenopathy Neurological: Cranial nerves II-XII grossly intact, Neuro grossly intact, Motor Exam 5/5 strength throughout Psych/Mental Status: Alert and oriented to time, place, person, mood and affect Vital Signs Temp Pulse Resp BP Pulse Ox 36.3 C L 64 16 120/71 96 11/29/17 06:00 11/29/17 06:00 11/29/17 06:00 11/29/17 06:00 11/29/17 06:00 Oxygen Flow Rate (L/min) 2 Oxygen Delivery Method Room Air Weight: 97.2 kg Body Mass Index (BMI) 33.3 Intake and Output for Last 24 Hours 11/27/17 11/28/17 11/29/17 23:59 23:59 23:59 Intake Total 1417.7 / 1417.7 1356 / 1356 313 / 313 Output Total 800 / 800 975 / 975 525 / 525 Balance 617.7 / 617.7 381 / 381 -212 / -212 Labs (Last 48 Hours) 11/27/17 11/27/1718 07:00 10:30 16:30 WBC RBC Hgb Hct MCV MCH MCHC RDW RDW Differential Plt Count MPV Immature Gran % (Auto) Neut % (Auto) Lymph % (Auto) Leake % (Auto) Eos % (Auto) Baso % (Auto) Absolute Neuts (auto) Absolute Lymphs (auto) Total Counted Differential Comment Polychromasia Hypochromasia Anisocytosis Macrocytosis Target Cells PT INR APTT 136.6 H* 37.5 H 41.7 H Sodium Potassium Chloride Carbon Dioxide Anion Gap BUN Creatinine Estim Creat Clear Calc Est GFR (MDRD) Af Amer Est GFR (MDRD) Non-Af BUN/Creatinine Ratio Glucose Calcium Phosphorus Magnesium 11/27/17 11/28/17 11/28/17 23:13 04:52 04:52 WBC 14.2 H RBC 3.64 L Hgb 10.7 L Hct 32.9 L MCV 90.4 MCH 29.4 MCHC 32.5 RDW 19.7 H RDW Differential 56.3 H Plt Count 186 MPV 10.8 Immature Gran % (Auto) 1.200 H Neut % (Auto) 69.1 Lymph % (Auto) 17.1 L Leake % (Auto) 12.0 H Eos % (Auto) 0.5 Baso % (Auto) 0.1 Absolute Neuts (auto) 9.8 H Absolute Lymphs (auto) 2.43 Total Counted Not Reportable Differential Comment SCANNED Polychromasia Hypochromasia 1+ Anisocytosis Macrocytosis 1+ Target Cells 2+ PT INR APTT 66.2 H Sodium 139 Potassium 5.0 Chloride 106 Carbon Dioxide 26.0 Anion Gap 7 BUN 66 H Creatinine 1.70 H Estim Creat Clear Calc 31.27 Est GFR (MDRD) Af Amer 50 L Est GFR (MDRD) Non-Af 41 L BUN/Creatinine Ratio 38.8 H Glucose 86 Calcium 7.6 L Phosphorus Magnesium 11/28/17 11/29/17 11/29/17 04:52 05:55 05:55 WBC RBC Hgb Hct MCV MCH MCHC RDW RDW Differential Plt Count MPV Immature Gran % (Auto) Neut % (Auto) Lymph % (Auto) Leake % (Auto) Eos % (Auto) Baso % (Auto) Absolute Neuts (auto) Absolute Lymphs (auto) Total Counted Differential Comment Polychromasia Hypochromasia Anisocytosis Macrocytosis Target Cells PT 14.4 INR 1.1 APTT 68.9 H Sodium 136 Potassium 4.8 Chloride 104 Carbon Dioxide 26.0 Anion Gap 6 BUN 63 H Creatinine 1.62 H Estim Creat Clear Calc 32.82 Est GFR (MDRD) Af Amer 53 L Est GFR (MDRD) Non-Af 44 L BUN/Creatinine Ratio 38.9 H Glucose 69 L Calcium 7.7 L Phosphorus 2.8 Magnesium 1.7 11/29/17 11/29/17 05:55 05:55 WBC 10.9 RBC 3.61 L Hgb 10.7 L Hct 32.7 L MCV 90.6 MCH 29.6 MCHC 32.7 RDW 20.1 H RDW Differential 61.2 H Plt Count 173 MPV 10.9 Immature Gran % (Auto) 1.000 H Neut % (Auto) 67.6 Lymph % (Auto) 19.6 Leake % (Auto) 11.3 H Eos % (Auto) 0.5 Baso % (Auto) 0.0 Absolute Neuts (auto) 7.4 Absolute Lymphs (auto) 2.14 Total Counted Not Reportable Differential Comment Polychromasia RARE Hypochromasia 1+ Anisocytosis 2+ Macrocytosis 1+ Target Cells PT INR APTT Sodium Potassium Chloride Carbon Dioxide Anion Gap BUN Creatinine Estim Creat Clear Calc Est GFR (MDRD) Af Amer Est GFR (MDRD) Non-Af BUN/Creatinine Ratio Glucose Calcium Phosphorus Cancelled Magnesium Microbiology 11/27/17 07:00 Sputum, Expectorated/Coughed Gram Stain - Final 11/27/17 07:00 Sputum, Expectorated/Coughed Respiratory Culture - Preliminary Gram negative carla Medical Necessity - Tobacco Use Smoking Status: Former smoker Assessment/Plan All Active Problems (Last Reviewed 11/26/17 @ 01:32 by Mustapha Hess DO) FALL on knees and elbow (Acute) BILA KNEES LACERATION AND BLEEDING (Acute) gisel ON ckd (Acute) Fall (Acute) Left radial fracture (Acute) Knee laceration (Acute) Cellulitis (Acute) Acute on chronic kidney failure (Acute) Shock (Acute) Hyperkalemia (Acute) Leukocytosis (Acute) Hypotension (Acute) Left ventricular thrombosis (Acute) Left leg cellulitis (Acute) Unspecified open wound, left foot, initial encounter (Acute) Avulsion of skin of left hand (Resolved) Avulsion of skin of right forearm (Resolved) Avulsion of skin of right hand (Resolved) History of subdural hemorrhage (Resolved) Hypotension (Resolved) Rhinovirus (Resolved) Supratherapeutic INR (Resolved) RECOMMENDATIONS: 1. Continue empiric antibiotics to complete a 10 day course 2. Continue to dose Coumadin on a daily basis until therapeutic INR 3. Okay to wean oxygen from my perspective 4. Okay to leave the intensive care unit from my perspective IMPRESSIONS: 1. Shock Probable multifactorial etiology. Patient does have significantly depressed heart function was found to have left apical thrombus. Patient is currently on anticoagulation and tolerating well. Patient does have a left lung infiltrate and was initiated on antibiotics. However, patient continues to deny any shortness of breath or productive cough. Patient has responded well to the addition of midodrine therapy. Patient now has a gram-negative growing in the sputum. Would continue with empiric antibiotics for a 10 day course until sensitivities allow de-escalation. 2. 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 New echocardiogram shows an apical thrombus. Patient will be initiated on anticoagulation with heparin given renal dysfunction. Patient seen by Dr. Hewitt. Appreciate input. From my perspective, patient can likely be transitioned to Coumadin therapy as no interventions are required at this time. A 10 mg dose of Coumadin will be given today. Daily INRs have been ordered. Heparin will need to be continued until patient is therapeutic. 3. 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 Patient has not been compliant with noninvasive therapy for sleep in the past. Code Visit Inpatient E&M: 29002 [facility] Hosp L3
[2017-11-29] MEDS: Budesonide Respules 0.5 MG/2 ML AMPUL.NEB. INHALATION ×2 (07:26→19:13)
[2017-11-29] MEDS: Ipratropium/Albuterol Sulfate 3 ML AMPUL.NEB INHALATION ×3 (07:26→19:13)
[2017-11-29] MEDS: Aspirin 81 MG TAB.CHEW PO (09:12)
[2017-11-29] MEDS: Lidocaine 5% Patch 1 PATCH TOPICAL (09:12)
[2017-11-29] MEDS: Venlafaxine XR 75 MG Capsule PO (09:12)
[2017-11-29] MEDS: Carvedilol 3.125 MG TABLET PO ×2 (09:12→21:02)
[2017-11-29] MEDS: Pantoprazole Sodium 20 MG Tablet PO ×2 (09:13→21:01)
--- NOTE | 2017-11-29 12:54 | PN.CARD_ITS ---
Subjectve: The patient appears to be resting comfortably. There have been no new acute complaints. Objective: Vital Signs Temp Pulse Resp BP Pulse Ox 97.9 F 72 12 98/66 96 11/29/17 12:00 11/29/17 12:00 11/29/17 12:00 11/29/17 12:00 11/29/17 12:00 Oxygen Flow Rate (L/min) 2 Oxygen Delivery Method Room Air Weight: 214 lb 4.629 oz Body Mass Index (BMI) 33.3 Intake and Output for Last 24 Hours 11/27/17 11/28/17 11/29/17 23:59 23:59 23:59 Intake Total 1417.7 / 1417.7 1356 / 1356 601 / 601 Output Total 800 / 800 975 / 975 1025 / 1025 Balance 617.7 / 617.7 381 / 381 -424 / -424 General: Awake, Alert, Oriented x 3, Cooperative, No Acute Distress Lungs: Clear to auscultation Cardiovascular: Regular Rhythm, Premature Ectopic Beats, Normal S1, Normal S2 Abdomen: Bowel Sounds Present, Soft, Non Tender Extremities: Mild RLE Edema, Mild LLE Edema 11/29/17 05:55: PT 14.4, INR 1.1 11/29/17 05:55: Sodium 136, Potassium 4.8, Chloride 104, Carbon Dioxide 26.0, Anion Gap 6, BUN 63 H, Creatinine 1.62 H, Est GFR (MDRD) Af Amer 53 L, Est GFR ( MDRD) Non-Af 44 L, BUN/Creatinine Ratio 38.9 H, Glucose 69 L, Calcium 7.7 L, Phosphorus 2.8, Magnesium 1.7 11/29/17 05:55: WBC 10.9, RBC 3.61 L, Hgb 10.7 L, Hct 32.7 L, MCV 90.6, MCH 29.6 , MCHC 32.7, RDW 20.1 H, RDW Differential 61.2 H, Plt Count 173, MPV 10.9, Immature Gran % (Auto) 1.000 H, Neut % (Auto) 67.6, Lymph % (Auto) 19.6, Ransom % (Auto) 11.3 H, Eos % (Auto) 0.5, Baso % (Auto) 0.0, Absolute Neuts (auto) 7.4, Total Counted Not Reportable 11/29/17 05:55: Phosphorus Cancelled Rhythm: Sinus rhythm; PVCs Medical Necessity - Tobacco Use Smoking Status: Former smoker Assessment/Plan 1. Hypotension The patient's blood pressure appears to be overall improved. He remains off of IV vasopressor agents at this time. 2. Left ventricular apical thrombus This appears compatible with his underlying history of severe ischemic mediated cardiomyopathy and left ventricular wall motion abnormalities and diminished LV systolic function. The present time it would be recommended that he continue anticoagulant therapy with IV heparin. He has now been placed on warfarin therapy. His IV heparin should be continued as bridging anticoagulation until his INR is therapeutic. 3. Chronic systolic CHF The patient does have a history of chronic systolic CHF. At the moment he appears to be without acute symptoms. He will need to continue to be monitored. He may eventually need his medications readjusted to balance his volume status if he develops signs of volume overload. 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 Certainly this can contribute to his symptoms of chronic systolic CHF. He is being treated medically. He does not appear to be an ideal candidate for additional invasive evaluation/care at this time. 5. CAD status post previous CABG and PCI The patient does not appear to have evidence of acute coronary syndrome at this time. He will continue risk factor modification and medical management as he is able to based upon his other concerns with respect to his hypotension, etc. 6. Atrial fibrillation The patient does appear to have a history of underlying atrial fibrillation. It appears to be paroxysmal. He has been treated with rate control therapy and anticoagulant therapy and antiarrhythmic therapy. He will need to continue his combined medication as tolerated. Of note he is on antiarrhythmic therapy with dronedarone/Multaq. 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 This was based upon concerns of his underlying pulmonary disease process. There are concerns with respect to using this particular medication in patients with congestive heart failure. However he appears to have been stable on this medication without adverse event thus far. Depending upon his clinical course this may have to be revisited and/or changed over time. 7. Ventricular tachycardia Again he has a history of underlying ventricular dysrhythmias. He has been on beta-pramod therapy. He does have an ICD in place. 8. ICD His ICD has been evaluated in the past. It has been functioning appropriately. Will be followed and reassessed as needed. 9. Hyperlipidemia He can continue medical management as deemed appropriate. 10. Hypertension He does have a history of previous hypertension. However at the moment he has been hypotensive. Thus his medications are being adjusted. 11. Diabetes mellitus He will continue medical therapy per internal medicine. 12. Chronic renal insufficiency His creatinine level appears to be slightly improved today. 13. DVT: History of He does have a history of DVT. He has been treated for this in the past. He will need to be monitored for any obvious recurrence and reassessed as deemed appropriate. 14. COPD He does have a history of underlying COPD. He will continue with his care per internal medicine and pulmonology. This note was generated with [employer] dictation software. It may contain incorrect words, spelling, and punctuation that were not noted in checking the note before signing.
--- NOTE | 2017-11-29 15:09 | PN_ITS ---
Patient Problems: Active and Suspected Problems (Last Reviewed 11/26/17 @ 01:32 by Mustapha Hess DO) Shock (Acute) Hyperkalemia (Acute) Leukocytosis (Acute) Hypotension (Acute) Left ventricular thrombosis (Acute) Subjective: CC: Hypotension Objective: The patient denies any dizziness, shortness of breath palpitations or rapid heartbeat. No acute events reported overnight. Vitals/I&O's: Vital Signs Temp Pulse Resp BP Pulse Ox 97.9 F 87 14 104/63 95 11/29/17 12:00 11/29/17 14:00 11/29/17 14:00 11/29/17 14:00 11/29/17 14:00 Oxygen Flow Rate (L/min) 2 Oxygen Delivery Method Room Air Weight: 97.2 kg Body Mass Index (BMI) 33.3 Intake and Output for Last 24 Hours 11/27/17 11/28/17 11/29/17 23:59 23:59 23:59 Intake Total 1417.7 / 1417.7 1356 / 1356 601 / 601 Output Total 800 / 800 975 / 975 1025 / 1025 Balance 617.7 / 617.7 381 / 381 -424 / -424 General: Alert, Oriented x3 Oral: Moist Mucosa Neck: Supple, No JVD Lungs: Clear to auscultation Cardiovascular: Regular rate, Normal S1, Normal S2 Abdomen: Bowel Sounds Present, Soft, Non Tender Extremities: No edema Neurological: Cranial nerves II-XII grossly intact, Motor Exam 5/5 strength throughout Microbiology Past 72 Hours 11/27/17 07:00 Sputum, Expectorated/Coughed Gram Stain - Final 11/27/17 07:00 Sputum, Expectorated/Coughed Respiratory Culture - Preliminary GNR lactose sole filler Laboratory Results 11/29/17 05:55: PT 14.4, INR 1.1 11/29/17 05:55: Sodium 136, Potassium 4.8, Chloride 104, Carbon Dioxide 26.0, Anion Gap 6, BUN 63 H, Creatinine 1.62 H, Estim Creat Clear Calc 32.82, Est GFR (MDRD) Af Amer 53 L, Est GFR (MDRD) Non-Af 44 L, BUN/Creatinine Ratio 38.9 H, Glucose 69 L, Calcium 7.7 L, Phosphorus 2.8, Magnesium 1.7 11/29/17 05:55: WBC 10.9, RBC 3.61 L, Hgb 10.7 L, Hct 32.7 L, MCV 90.6, MCH 29.6 , MCHC 32.7, RDW 20.1 H, RDW Differential 61.2 H, Plt Count 173, MPV 10.9, Immature Gran % (Auto) 1.000 H, Neut % (Auto) 67.6, Lymph % (Auto) 19.6, Gibson % (Auto) 11.3 H, Eos % (Auto) 0.5, Baso % (Auto) 0.0, Absolute Neuts (auto) 7.4, Absolute Lymphs (auto) 2.14, Total Counted Not Reportable, Polychromasia RARE, Hypochromasia 1+, Anisocytosis 2+, Macrocytosis 1+ 11/29/17 05:55: Phosphorus Cancelled Current Medications Albuterol Sulfate (Ventolin Aerosols) 2.5 mg INHALATION Q6H PRN PRN PRN Reason: COUGH/SOB Albuterol/Ipratropium (Duoneb) 3 ml INHALATION Q6HWA.RT [facility] Last Admin: 11/29/17 13:25 Dose: 3 ml Aspirin (Aspirin, Baby) 81 mg PO DAILY@0800 [facility] Last Admin: 11/29/17 09:12 Dose: 81 mg Budesonide (Pulmicort Aerosol) 0.5 mg INHALATION BID.RT [facility] Last Admin: 11/29/17 07:26 Dose: 0.5 mg Calamine/Phenol (Calmoseptine Ointment) 1 applic TOPICAL TID [facility] PRN Reason: Protocol Last Admin: 11/29/17 14:38 Dose: 1 applicatio Carvedilol (Coreg) 3.125 mg PO BID [facility] Last Admin: 11/29/17 09:12 Dose: 3.125 mg Chlorhexidine Gluconate () 1 each TOPICAL DAILY [facility] Last Admin: 11/29/17 09:58 Dose: Not Given Dronedarone (Multaq) 400 mg PO BID [facility] Last Admin: 11/29/17 09:13 Dose: 400 mg Heparin Sodium (Porcine) () 0 units IV UD PRN PRN Reason: Protocol Last Admin: 11/27/17 17:26 Dose: 1,000 units Sodium Chloride () 250 mls @ 15 mls/hr IV .[id number] PRN PRN Reason: SALINE FLUSH Last Admin: 11/27/17 11:07 Dose: 15 mls/hr Heparin Sodium/Sodium Chloride () 25,000 unit in 250 mls @ 14 mls/hr IV .[id number] [facility]; As Directed PRN Reason: Protocol Last Admin: 11/29/17 09:43 Dose: Not Given Norepinephrine Bitartrate 8 mg (/ Dextrose) 258 mls @ 9.67 mls/hr IV .[id number] RADHA; 5 MCG/MIN PRN Reason: Protocol Last Admin: 11/29/17 04:54 Dose: Not Given Meropenem 500 mg/ Sodium (Chloride) 60 mls @ 100 mls/hr IV Q8 [facility] Last Admin: 11/29/17 14:37 Dose: 100 mls/hr Levothyroxine Sodium (Synthroid) 75 mcg PO MoTuWeThFrSa@0600 [facility] Last Admin: 11/29/17 05:43 Dose: 75 mcg Levothyroxine Sodium (Synthroid) 150 mcg PO Patel@0600 [facility] Lidocaine (Lidoderm Patch) 1 patch TOPICAL DAILY [facility] PRN Reason: Protocol Last Admin: 11/29/17 09:12 Dose: 1 patch Magnesium Hydroxide (Milk Of Magnesia) 30 ml PO DAILY PRN PRN PRN Reason: Constipation Midodrine (Proamatine) 10 mg PO TID [facility] Last Admin: 11/29/17 14:38 Dose: Not Given Nutritional Formula (David - [place] Flavor) 1 packet PO BIDCM [facility] Last Admin: 11/29/17 09:11 Dose: 1 packet Pantoprazole Sodium (Protonix) 20 mg PO BID [facility] Last Admin: 11/29/17 09:13 Dose: 20 mg Pravastatin Sodium (Pravachol) 20 mg PO QHS [facility] Last Admin: 11/28/17 21:59 Dose: 20 mg Sodium Chloride () 5 - 30 ml IV UD PRN PRN Reason: SALINE FLUSH Last Admin: 11/28/17 10:18 Dose: 20 ml Sodium Chloride ([place] Nasal [place]) 2 spray NASAL TID PRN PRN PRN Reason: NASAL DRYNESS Last Admin: 11/27/17 17:26 Dose: 2 spray Venlafaxine HCl (Effexor Xr) 75 mg PO DAILY [facility] Last Admin: 11/29/17 09:12 Dose: 75 mg Warfarin Sodium (Coumadin (Pbkc)) 10 mg PO X1 ONE Stop: 11/29/17 17:01 Medical Necessity - Tobacco Use Smoking Status: Former smoker Assessment/Plan All Active Problems (Last Reviewed 11/26/17 @ 01:32 by Mustapha Hess DO) FALL on knees and elbow (Acute) BILA KNEES LACERATION AND BLEEDING (Acute) gisel ON ckd (Acute) Fall (Acute) Left radial fracture (Acute) Knee laceration (Acute) Cellulitis (Acute) Acute on chronic kidney failure (Acute) Shock (Acute) Hyperkalemia (Acute) Leukocytosis (Acute) Hypotension (Acute) Left ventricular thrombosis (Acute) Left leg cellulitis (Acute) Unspecified open wound, left foot, initial encounter (Acute) Avulsion of skin of left hand (Resolved) Avulsion of skin of right forearm (Resolved) Avulsion of skin of right hand (Resolved) History of subdural hemorrhage (Resolved) Hypotension (Resolved) Rhinovirus (Resolved) Supratherapeutic INR (Resolved) 1. Hypotension; improved, we will continue on midodrine. 2. Apical thrombus; he is on heparin drip and Coumadin, will monitor daily INR. 3. Cardiomyopathy s/p ICD.. 4. CAD s/p CABG; echo showed an EF ~30%, he does not appear to have clinical evidence of congestive heart failure. 5. Left lobe pneumonia; the patient is on IV Zosyn 6. Leukocytosis secondary to infectious process above, proving. 7. Chronic atrial fibrillation; he is on Multaq, now anticoagulated. 8. Hypothyroidism; he is on Synthroid.
[2017-11-29] MEDS: Pravastatin 20 MG Tablet PO (21:01)
[2017-11-30] VITALS (18 sets, daily range): BP systolic 98–124; BP diastolic 57–81; PULSE 62–85; RESP 16–20; TEMP 36.2–37.1; O2SAT 92–98
[2017-11-30 04:44] LABS: Absolute Lymphocyte Count 2.73 X10^3/ul (0.83-4.51); Absolute Neutrophil Count 6.9 X10^3/uL (2.0-7.7); Basophil# 0.01 X10^3/uL; Basophil% 0.1 % (0-1); Eosinophil# 0.09 X10^3/uL; Eosinophils% 0.8 % (0-5); Hematocrit 33.3 % (40-54); Hemoglobin 10.6 g/dl (13.0-16.5); Lymphocyte # 2.73 X10^3/ul (4.0); Lymphocyte % 24.5 % (19-41); Mean Corp Hgb Conc 31.8 g/gl (32-36); Mean Platelet Vol. 10.5 fl (6.2-12.0); Monocyte# 1.34 X10^3/uL; Neutrophil # 6.89 X10^3/uL (2.7-7.7); POSITIVE COUNT NO; POSITIVE DIFFERENTIAL NO; POSITIVE MORPHOLOGY NO; Platelet Count 174 K/mm3 (150-450); RBC Distribution Width CV 19.4 % (11.6-14.6); RBC Distribution Width SD 62.7 fl (35.1-43.9); Red Blood Count 3.66 M/mm3 (4.6-6.2); White Blood Count 11.1 K/mm3 (4.4-11.0)
[2017-11-30 04:56] LABS: International Normalized Ratio 1.6; Prothrombin Time (Protime)PT. 18.8 SECONDS (11.7-14.9)
[2017-11-30 04:58] LABS: Partial Thromboplast Time 85.4 Seconds (24.1-36.2)
[2017-11-30] MEDS: Levothyroxine 150 MCG Tablet PO (05:56)
[2017-11-30] MEDS: Midodrine HCl 5 MG Tablet 10 MG PO ×3 (05:56→21:04)
[2017-11-30] MEDS: 0.9% NaCl Peripheral Flush Adult/Peds IV ×2 (05:57→13:08)
[2017-11-30] MEDS: Menthol/Lanolin/Calamine/Znox 113 GM Tube 1 APPLIC TOPICAL ×3 (05:57→21:05)
--- NOTE | 2017-11-30 06:22 | PN_ITS ---
Subjective: Patient did well overnight. No acute issues were reported. Patient continues to tolerate room air without difficulty. No bleeding complications were reported. Patient with no complaints this morning. General: Alert, Oriented x3, Cooperative, No apparent distress, Well developed, Well nourished, - - Obese. Speaking in full sentences. HEENT: Atraumatic, PERRLA, EOMI, Normocephalic, - - No scleral icterus or injection noted. Glasses in place. Oral: Moist Mucosa, No Gingival or Mucosal Lesions/ Ulcerations Neck: Supple, No JVD, No Nodes, Trachea Midline Lungs: No rhonchi, No wheeze, No rales, Diminished, - - Symmetric expansion. No dullness to percussion. Cardiovascular: Normal S1, Normal S2, No murmurs, Irregular Rate, No rub noted, No Gallop Abdomen: Bowel Sounds Present, Soft, Non Tender, Non-Distended, Obese Extremities: No clubbing, No cyanosis, Edema, - - Left hand amputations noted Skin: - - No significant change compared to previous Musculoskeletal: No Tenderness to Palpation of Joints or Extremities Lymphatic: No Cervical, Supraclavicular, or Inguinal Adenopathy Neurological: Cranial nerves II-XII grossly intact, Neuro grossly intact, Motor Exam 5/5 strength throughout Psych/Mental Status: Alert and oriented to time, place, person, mood and affect Vital Signs Temp Pulse Resp BP Pulse Ox 36.3 C L 77 18 124/76 H 94 11/30/17 00:00 11/30/17 06:00 11/30/17 06:00 11/30/17 06:00 11/30/17 06:00 Oxygen Flow Rate (L/min) 2 Oxygen Delivery Method Room Air Weight: 96.6 kg Body Mass Index (BMI) 33.3 Intake and Output for Last 24 Hours 11/28/17 11/29/17 11/30/17 23:59 23:59 23:59 Intake Total 1356 / 1356 1151 / 1151 152 / 152 Output Total 975 / 975 1625 / 1625 200 / 200 Balance 381 / 381 -474 / -474 -48 / -48 Labs (Last 48 Hours) 11/29/17 11/29/17 11/29/17 05:55 05:55 05:55 WBC 10.9 RBC 3.61 L Hgb 10.7 L Hct 32.7 L MCV 90.6 MCH 29.6 MCHC 32.7 RDW 20.1 H RDW Differential 61.2 H Plt Count 173 MPV 10.9 Immature Gran % (Auto) 1.000 H Neut % (Auto) 67.6 Lymph % (Auto) 19.6 [place] % (Auto) 11.3 H Eos % (Auto) 0.5 Baso % (Auto) 0.0 Absolute Neuts (auto) 7.4 Absolute Lymphs (auto) 2.14 Total Counted Not Reportable Polychromasia RARE Hypochromasia 1+ Anisocytosis 2+ Macrocytosis 1+ PT 14.4 INR 1.1 APTT Sodium 136 Potassium 4.8 Chloride 104 Carbon Dioxide 26.0 Anion Gap 6 BUN 63 H Creatinine 1.62 H Estim Creat Clear Calc 32.82 Est GFR (MDRD) Af Amer 53 L Est GFR (MDRD) Non-Af 44 L BUN/Creatinine Ratio 38.9 H Glucose 69 L Calcium 7.7 L Phosphorus 2.8 Magnesium 1.7 11/29/17 11/30/17 11/30/17 05:55 04:35 04:35 WBC 11.1 H RBC 3.66 L Hgb 10.6 L Hct 33.3 L MCV 91.0 MCH 29.0 MCHC 31.8 L RDW 19.4 H RDW Differential 62.7 H Plt Count 174 MPV 10.5 Immature Gran % (Auto) 0.600 Neut % (Auto) 62.0 Lymph % (Auto) 24.5 [place] % (Auto) 12.0 H Eos % (Auto) 0.8 Baso % (Auto) 0.1 Absolute Neuts (auto) 6.9 Absolute Lymphs (auto) 2.73 Total Counted Not Reportable Polychromasia Hypochromasia Anisocytosis Macrocytosis PT 18.8 H INR 1.6 APTT 85.4 H Sodium Potassium Chloride Carbon Dioxide Anion Gap BUN Creatinine Estim Creat Clear Calc Est GFR (MDRD) Af Amer Est GFR (MDRD) Non-Af BUN/Creatinine Ratio Glucose Calcium Phosphorus Cancelled Magnesium Microbiology 11/27/17 07:00 Sputum, Expectorated/Coughed Gram Stain - Final 11/27/17 07:00 Sputum, Expectorated/Coughed Respiratory Culture - 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 Medical Necessity - Tobacco Use Smoking Status: Former smoker Assessment/Plan All Active Problems (Last Reviewed 11/26/17 @ 01:32 by Mustapha Hess DO) FALL on knees and elbow (Acute) BILA KNEES LACERATION AND BLEEDING (Acute) gisel ON ckd (Acute) Fall (Acute) Left radial fracture (Acute) Knee laceration (Acute) Cellulitis (Acute) Acute on chronic kidney failure (Acute) Shock (Acute) Hyperkalemia (Acute) Leukocytosis (Acute) Hypotension (Acute) Left ventricular thrombosis (Acute) Left leg cellulitis (Acute) Unspecified open wound, left foot, initial encounter (Acute) Avulsion of skin of left hand (Resolved) Avulsion of skin of right forearm (Resolved) Avulsion of skin of right hand (Resolved) History of subdural hemorrhage (Resolved) Hypotension (Resolved) Rhinovirus (Resolved) Supratherapeutic INR (Resolved) RECOMMENDATIONS: 1. Consider infectious disease consult 2. Continue to dose Coumadin on a daily basis until therapeutic INR 3. Okay to wean oxygen from my perspective 4. Okay to leave the intensive care unit from my perspective IMPRESSIONS: 1. Shock Probable multifactorial etiology. Patient does have significantly depressed heart function was found to have left apical thrombus. Patient is currently on anticoagulation and tolerating well. Patient did have a left lung infiltrate and was initiated on antibiotics initially. However, patient continues to deny any shortness of breath or productive cough. Patient has responded well to the addition of midodrine therapy. Patient now has a gram- negative growing in the sputum. Patient is growing ESBL E. coli and [place] cepacia from the urine. It is unclear if this truly needs treatment. This was resistant to Zosyn therapy, so antibiotics have been switched to meropenem. 2. 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 New echocardiogram shows an apical thrombus. Patient will be initiated on anticoagulation with heparin given renal dysfunction. Patient seen by Dr. Hewitt. Appreciate input. From my perspective, patient can likely be transitioned to Coumadin therapy as no interventions are required at this time. A 5 mg dose of Coumadin will be given today. Daily INRs have been ordered. Heparin will need to be continued until patient is therapeutic. 3. 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 Patient has not been compliant with noninvasive therapy for sleep in the past. Code Visit Inpatient E&M: 69432 Subs Hosp L3
[2017-11-30] MEDS: Budesonide Respules 0.5 MG/2 ML AMPUL.NEB. INHALATION ×2 (07:25→19:19)
[2017-11-30] MEDS: Ipratropium/Albuterol Sulfate 3 ML AMPUL.NEB INHALATION ×2 (07:25→19:19)
--- NOTE | 2017-11-30 10:08 | PCM.PN.CARD ---
Subjectve: The patient has been up out of bed. He has been working with OT/PT. He is pending transfer from the ICU. Objective: Vital Signs Temp Pulse Resp BP Pulse Ox 97.6 F L 78 16 103/67 93 11/30/17 05:00 11/30/17 07:25 11/30/17 07:25 11/30/17 07:00 11/30/17 07:25 Oxygen Flow Rate (L/min) 2 Oxygen Delivery Method Room Air Weight: 212 lb 15.465 oz Body Mass Index (BMI) 33.3 Intake and Output for Last 24 Hours 11/28/17 11/29/17 11/30/17 23:59 23:59 23:59 Intake Total 1356 / 1356 1151 / 1151 152 / 152 Output Total 975 / 975 1625 / 1625 200 / 200 Balance 381 / 381 -474 / -474 -48 / -48 General: Awake, Alert, Oriented x 3, Cooperative, No Acute Distress Neck: Supple, Good ROM, No JVD Lungs: Clear to auscultation Cardiovascular: Regular Rhythm, Premature Ectopic Beats, Normal S1, Normal S2 Abdomen: Bowel Sounds Present, Soft, Non Tender Extremities: Mild RLE Edema, Mild LLE Edema 11/30/17 04:35: PT 18.8 H, INR 1.6, APTT 85.4 H 11/30/17 04:35: WBC 11.1 H, RBC 3.66 L, Hgb 10.6 L, Hct 33.3 L, MCV 91.0, MCH 29.0, MCHC 31.8 L, RDW 19.4 H, RDW Differential 62.7 H, Plt Count 174, MPV 10.5, Immature Gran % (Auto) 0.600, Neut % (Auto) 62.0, Lymph % (Auto) 24.5, [place] % (Auto) 12.0 H, Eos % (Auto) 0.8, Baso % (Auto) 0.1, Absolute Neuts (auto) 6.9, Total Counted Not Reportable Rhythm: Sinus rhythm; PVCs Medical Necessity - Tobacco Use Smoking Status: Former smoker Assessment/Plan 1. Hypotension The patient's blood pressure appears to be overall improved. He remains off of IV vasopressor agents at this time. 2. Left ventricular apical thrombus This appears compatible with his underlying history of severe ischemic mediated cardiomyopathy and left ventricular wall motion abnormalities and diminished LV systolic function. The present time it would be recommended that he continue anticoagulant therapy with IV heparin. He has now been placed on warfarin therapy. His IV heparin should be continued as bridging anticoagulation until his INR is therapeutic. His INR is increasing but his INR level is still less than 2. 3. Chronic systolic CHF The patient does have a history of chronic systolic CHF. At the moment he appears to be without acute symptoms. He will need to continue to be monitored. He may eventually need his medications readjusted to balance his volume status if he develops signs of volume overload. 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 Certainly this can contribute to his symptoms of chronic systolic CHF. He is being treated medically. He does not appear to be an ideal candidate for additional invasive evaluation/care at this time. 5. CAD status post previous CABG and PCI The patient does not appear to have evidence of acute coronary syndrome at this time. He will continue risk factor modification and medical management. 6. Atrial fibrillation The patient does appear to have a history of underlying atrial fibrillation. It appears to be paroxysmal. He has been treated with rate control therapy and anticoagulant therapy and antiarrhythmic therapy. He will need to continue his combined medication as tolerated. Of note he is on antiarrhythmic therapy with dronedarone/Multaq. 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 This was based upon concerns of his underlying pulmonary disease process. There are concerns with respect to using this particular medication in patients with congestive heart failure. However he appears to have been stable on this medication without adverse event thus far. Depending upon his clinical course this may have to be revisited and/or changed over time. 7. Ventricular tachycardia Again he has a history of underlying ventricular dysrhythmias. He has been on beta-pramod therapy. He does have an ICD in place. 8. ICD His ICD has been evaluated in the past. It has been functioning appropriately. Will be followed and reassessed as needed. 9. Hyperlipidemia He can continue medical management as deemed appropriate. 10. Hypertension He does have a history of previous hypertension. However at the moment he has been hypotensive. Thus his medications are being adjusted. 11. Diabetes mellitus He will continue medical therapy per internal medicine. 12. Chronic renal insufficiency His creatinine level appears to be slightly improved today. 13. DVT: History of He does have a history of DVT. He has been treated for this in the past. He will need to be monitored for any obvious recurrence and reassessed as deemed appropriate. 14. COPD He does have a history of underlying COPD. He will continue with his care per internal medicine and pulmonology. This note was generated with [employer] dictation software. It may contain incorrect words, spelling, and punctuation that were not noted in checking the note before signing.
[2017-11-30] MEDS: Aspirin 81 MG TAB.CHEW PO (10:13)
[2017-11-30] MEDS: Lidocaine 5% Patch 1 PATCH TOPICAL (10:14)
[2017-11-30] MEDS: Venlafaxine XR 75 MG Capsule PO (10:14)
[2017-11-30] MEDS: Carvedilol 3.125 MG TABLET PO ×2 (10:14→21:05)
[2017-11-30] MEDS: Pantoprazole Sodium 20 MG Tablet PO ×2 (10:15→21:05)
[2017-11-30] MEDS: 0.9% NaCl IVPB Med Flush (250 mL) 15 ML IV (13:11)
--- NOTE | 2017-11-30 14:16 | NURSING ---
report called to Ami RN PCU, to PCU 127 per bed, ICU staff in attendance
--- NOTE | 2017-11-30 16:31 | PCM.PN.HOSP ---
Patient Problems: Active and Suspected Problems (Last Reviewed 11/26/17 @ 01:32 by Mustapha Hess DO) Shock (Acute) Hyperkalemia (Acute) Leukocytosis (Acute) Hypotension (Acute) Left ventricular thrombosis (Acute) Subjective: CC: Hypotension Objective: This is an 82-year-old male who was sent to the emergency room from TCU for evaluation of hypotension, admitted to the ICU and placed on vasopressors which has now been discontinued. Etiology of his hypotension is felt to be multifactorial. he is found to have cardiomyopathy with intracardiac thrombus for which he is currently receiving IV heparin drip and Coumadin. The patient reports mild dizziness, he denies any chest pain shortness of breath or palpitations. Vitals/I&O's: Vital Signs Temp Pulse Resp BP Pulse Ox 97.2 F L 73 18 109/63 97 11/30/17 16:03 11/30/17 16:03 11/30/17 16:03 11/30/17 16:03 11/30/17 16:03 Oxygen Flow Rate (L/min) 2 Oxygen Delivery Method Nasal Cannula Weight: 95.8 kg Body Mass Index (BMI) 33.3 Intake and Output for Last 24 Hours 11/28/17 11/29/17 11/30/17 23:59 23:59 23:59 Intake Total 1356 / 1356 1151 / 1151 749 / 749 Output Total 975 / 975 1625 / 1625 400 / 400 Balance 381 / 381 -474 / -474 349 / 349 HEENT: Atraumatic Oral: Moist Mucosa Neck: Supple Lungs: Clear to auscultation Cardiovascular: Regular rate, Normal S1, Normal S2 Abdomen: Non Tender Neurological: Cranial nerves II-XII grossly intact, Motor Exam 5/5 strength throughout Microbiology Past 72 Hours 11/27/17 07:00 Sputum, Expectorated/Coughed Gram Stain - Final 11/27/17 07:00 Sputum, Expectorated/Coughed Respiratory Culture - Preliminary Escherichia coli Laboratory Results 11/30/17 04:35: PT 18.8 H, INR 1.6, APTT 85.4 H 11/30/17 04:35: WBC 11.1 H, RBC 3.66 L, Hgb 10.6 L, Hct 33.3 L, MCV 91.0, MCH 29.0, MCHC 31.8 L, RDW 19.4 H, RDW Differential 62.7 H, Plt Count 174, MPV 10.5, Immature Gran % (Auto) 0.600, Neut % (Auto) 62.0, Lymph % (Auto) 24.5, [place] % (Auto) 12.0 H, Eos % (Auto) 0.8, Baso % (Auto) 0.1, Absolute Neuts (auto) 6.9, Absolute Lymphs (auto) 2.73, Total Counted Not Reportable 11/30/17 11:30: APTT 120.0 H* Current Medications Albuterol Sulfate (Ventolin Aerosols) 2.5 mg INHALATION Q6H PRN PRN PRN Reason: COUGH/SOB Albuterol/Ipratropium (Duoneb) 3 ml INHALATION Q6HWA.RT [facility] Last Admin: 11/30/17 13:49 Dose: Not Given Aspirin (Aspirin, Baby) 81 mg PO DAILY@0800 [facility] Last Admin: 11/30/17 10:13 Dose: 81 mg Budesonide (Pulmicort Aerosol) 0.5 mg INHALATION BID.RT [facility] Last Admin: 11/30/17 07:25 Dose: 0.5 mg Calamine/Phenol (Calmoseptine Ointment) 1 applic TOPICAL TID [facility] PRN Reason: Protocol Last Admin: 11/30/17 13:07 Dose: 1 applicatio Carvedilol (Coreg) 3.125 mg PO BID [facility] Last Admin: 11/30/17 10:14 Dose: 3.125 mg Dronedarone (Multaq) 400 mg PO BID [facility] Last Admin: 11/30/17 10:15 Dose: 400 mg Heparin Sodium (Porcine) () 0 units IV UD PRN PRN Reason: Protocol Last Admin: 11/27/17 17:26 Dose: 1,000 units Sodium Chloride () 250 mls @ 15 mls/hr IV .[id number] PRN PRN Reason: SALINE FLUSH Last Admin: 11/30/17 13:11 Dose: 15 mls/hr Heparin Sodium/Sodium Chloride () 25,000 unit in 250 mls @ 14 mls/hr IV .[id number] [facility]; As Directed PRN Reason: Protocol Last Admin: 11/30/17 14:38 Dose: 14 mls/hr Meropenem 500 mg/ Sodium (Chloride) 60 mls @ 100 mls/hr IV Q8 [facility] Last Admin: 11/30/17 13:11 Dose: 100 mls/hr Levothyroxine Sodium (Synthroid) 75 mcg PO MoTuWeThFrSa@0600 [facility] Last Admin: 11/29/17 05:43 Dose: 75 mcg Levothyroxine Sodium (Synthroid) 150 mcg PO Patel@0600 [facility] Last Admin: 11/30/17 05:56 Dose: 150 mcg Lidocaine (Lidoderm Patch) 1 patch TOPICAL DAILY [facility] PRN Reason: Protocol Last Admin: 11/30/17 10:14 Dose: 1 patch Magnesium Hydroxide (Milk Of Magnesia) 30 ml PO DAILY PRN PRN PRN Reason: Constipation Midodrine (Proamatine) 10 mg PO TID [facility] Last Admin: 11/30/17 13:08 Dose: 10 mg Nutritional Formula (David - Toney Flavor) 1 packet PO BIDCM [facility] Last Admin: 11/30/17 10:13 Dose: 1 packet Pantoprazole Sodium (Protonix) 20 mg PO BID [facility] Last Admin: 11/30/17 10:15 Dose: 20 mg Pravastatin Sodium (Pravachol) 20 mg PO QHS [facility] Last Admin: 11/29/17 21:01 Dose: 20 mg Sodium Chloride () 5 - 30 ml IV UD PRN PRN Reason: SALINE FLUSH Last Admin: 11/30/17 13:08 Dose: 20 ml Sodium Chloride ([place] Nasal [place]) 2 spray NASAL TID PRN PRN PRN Reason: NASAL DRYNESS Last Admin: 11/27/17 17:26 Dose: 2 spray Venlafaxine HCl (Effexor Xr) 75 mg PO DAILY [facility] Last Admin: 11/30/17 10:14 Dose: 75 mg Warfarin Sodium (Coumadin (Pbkc)) 5 mg PO X1 ONE Stop: 11/30/17 17:01 Medical Necessity - Tobacco Use Smoking Status: Former smoker Assessment/Plan All Active Problems (Last Reviewed 11/26/17 @ 01:32 by Mustapha Hess DO) FALL on knees and elbow (Acute) BILA KNEES LACERATION AND BLEEDING (Acute) gisel ON ckd (Acute) Fall (Acute) Left radial fracture (Acute) Knee laceration (Acute) Cellulitis (Acute) Acute on chronic kidney failure (Acute) Shock (Acute) Hyperkalemia (Acute) Leukocytosis (Acute) Hypotension (Acute) Left ventricular thrombosis (Acute) Left leg cellulitis (Acute) Unspecified open wound, left foot, initial encounter (Acute) Avulsion of skin of left hand (Resolved) Avulsion of skin of right forearm (Resolved) Avulsion of skin of right hand (Resolved) History of subdural hemorrhage (Resolved) Hypotension (Resolved) Rhinovirus (Resolved) Supratherapeutic INR (Resolved) 1. Hypotension; improved, he was placed on Midodrine by ICU team. 2. Apical thrombus; this was found on echocardiogram during this admission, he is on heparin drip and Coumadin his INR is 1.6 today. 3. Cardiomyopathy s/p ICD.. 4. CAD s/p CABG; echo showed an EF ~30%, he does not appear to have clinical evidence of congestive heart failure. 5. Left lobe pneumonia; sputum grew E. coli, antibiotic changed to Meropenem based on sensitivities 6. Acute cystitis urine culture grew E. coli and [place]ia cepacia 7. Leukocytosis secondary to infectious process above, improving. 8. Chronic atrial fibrillation; he is on Multaq and and now anticoagulated. 9. Hypothyroidism; he is on Synthroid. Code Visit Inpatient E&M: 02927 Subs Hosp L2
--- NOTE | 2017-11-30 16:34 | PN_ITS ---
Patient Problems: Active and Suspected Problems (Last Reviewed 11/26/17 @ 01:32 by Mustapha Hess DO) Shock (Acute) Hyperkalemia (Acute) Leukocytosis (Acute) Hypotension (Acute) Left ventricular thrombosis (Acute) Subjective: CC: Hypotension Objective: This is an 82-year-old male who was sent to the emergency room from TCU for evaluation of hypotension, admitted to the ICU and placed on vasopressors which has now been discontinued. Etiology of his hypotension is felt to be multifactorial. he is found to have cardiomyopathy with intracardiac thrombus for which he is currently receiving IV heparin drip and Coumadin. The patient reports mild dizziness, he denies any chest pain shortness of breath or palpitations. Vitals/I&O's: Vital Signs Temp Pulse Resp BP Pulse Ox 97.2 F L 73 18 109/63 97 11/30/17 16:03 11/30/17 16:03 11/30/17 16:03 11/30/17 16:03 11/30/17 16:03 Oxygen Flow Rate (L/min) 2 Oxygen Delivery Method Nasal Cannula Weight: 95.8 kg Body Mass Index (BMI) 33.3 Intake and Output for Last 24 Hours 11/28/17 11/29/17 11/30/17 23:59 23:59 23:59 Intake Total 1356 / 1356 1151 / 1151 749 / 749 Output Total 975 / 975 1625 / 1625 400 / 400 Balance 381 / 381 -474 / -474 349 / 349 HEENT: Atraumatic Oral: Moist Mucosa Neck: Supple Lungs: Clear to auscultation Cardiovascular: Regular rate, Normal S1, Normal S2 Abdomen: Non Tender Neurological: Cranial nerves II-XII grossly intact, Motor Exam 5/5 strength throughout Microbiology Past 72 Hours 11/27/17 07:00 Sputum, Expectorated/Coughed Gram Stain - Final 11/27/17 07:00 Sputum, Expectorated/Coughed Respiratory Culture - Preliminary Escherichia coli Laboratory Results 11/30/17 04:35: PT 18.8 H, INR 1.6, APTT 85.4 H 11/30/17 04:35: WBC 11.1 H, RBC 3.66 L, Hgb 10.6 L, Hct 33.3 L, MCV 91.0, MCH 29.0, MCHC 31.8 L, RDW 19.4 H, RDW Differential 62.7 H, Plt Count 174, MPV 10.5 , Immature Gran % (Auto) 0.600, Neut % (Auto) 62.0, Lymph % (Auto) 24.5, Taney % (Auto) 12.0 H, Eos % (Auto) 0.8, Baso % (Auto) 0.1, Absolute Neuts (auto) 6.9, Absolute Lymphs (auto) 2.73, Total Counted Not Reportable 11/30/17 11:30: APTT 120.0 H* Current Medications Albuterol Sulfate (Ventolin Aerosols) 2.5 mg INHALATION Q6H PRN PRN PRN Reason: COUGH/SOB Albuterol/Ipratropium (Duoneb) 3 ml INHALATION Q6HWA.RT [facility] Last Admin: 11/30/17 13:49 Dose: Not Given Aspirin (Aspirin, Baby) 81 mg PO DAILY@0800 [facility] Last Admin: 11/30/17 10:13 Dose: 81 mg Budesonide (Pulmicort Aerosol) 0.5 mg INHALATION BID.RT [facility] Last Admin: 11/30/17 07:25 Dose: 0.5 mg Calamine/Phenol (Calmoseptine Ointment) 1 applic TOPICAL TID [facility] PRN Reason: Protocol Last Admin: 11/30/17 13:07 Dose: 1 applicatio Carvedilol (Coreg) 3.125 mg PO BID [facility] Last Admin: 11/30/17 10:14 Dose: 3.125 mg Dronedarone (Multaq) 400 mg PO BID [facility] Last Admin: 11/30/17 10:15 Dose: 400 mg Heparin Sodium (Porcine) () 0 units IV UD PRN PRN Reason: Protocol Last Admin: 11/27/17 17:26 Dose: 1,000 units Sodium Chloride () 250 mls @ 15 mls/hr IV .[id number] PRN PRN Reason: SALINE FLUSH Last Admin: 11/30/17 13:11 Dose: 15 mls/hr Heparin Sodium/Sodium Chloride () 25,000 unit in 250 mls @ 14 mls/hr IV .[id number] [facility]; As Directed PRN Reason: Protocol Last Admin: 11/30/17 14:38 Dose: 14 mls/hr Meropenem 500 mg/ Sodium (Chloride) 60 mls @ 100 mls/hr IV Q8 [facility] Last Admin: 11/30/17 13:11 Dose: 100 mls/hr Levothyroxine Sodium (Synthroid) 75 mcg PO MoTuWeThFrSa@0600 [facility] Last Admin: 11/29/17 05:43 Dose: 75 mcg Levothyroxine Sodium (Synthroid) 150 mcg PO Patel@0600 [facility] Last Admin: 11/30/17 05:56 Dose: 150 mcg Lidocaine (Lidoderm Patch) 1 patch TOPICAL DAILY [facility] PRN Reason: Protocol Last Admin: 11/30/17 10:14 Dose: 1 patch Magnesium Hydroxide (Milk Of Magnesia) 30 ml PO DAILY PRN PRN PRN Reason: Constipation Midodrine (Proamatine) 10 mg PO TID [facility] Last Admin: 11/30/17 13:08 Dose: 10 mg Nutritional Formula (David - [place] Flavor) 1 packet PO BIDCM [facility] Last Admin: 11/30/17 10:13 Dose: 1 packet Pantoprazole Sodium (Protonix) 20 mg PO BID [facility] Last Admin: 11/30/17 10:15 Dose: 20 mg Pravastatin Sodium (Pravachol) 20 mg PO QHS [facility] Last Admin: 11/29/17 21:01 Dose: 20 mg Sodium Chloride () 5 - 30 ml IV UD PRN PRN Reason: SALINE FLUSH Last Admin: 11/30/17 13:08 Dose: 20 ml Sodium Chloride ([place] Nasal [place]) 2 spray NASAL TID PRN PRN PRN Reason: NASAL DRYNESS Last Admin: 11/27/17 17:26 Dose: 2 spray Venlafaxine HCl (Effexor Xr) 75 mg PO DAILY [facility] Last Admin: 11/30/17 10:14 Dose: 75 mg Warfarin Sodium (Coumadin (Pbkc)) 5 mg PO X1 ONE Stop: 11/30/17 17:01 Medical Necessity - Tobacco Use Smoking Status: Former smoker Assessment/Plan All Active Problems (Last Reviewed 11/26/17 @ 01:32 by Mustapha Hess DO) FALL on knees and elbow (Acute) BILA KNEES LACERATION AND BLEEDING (Acute) gisel ON ckd (Acute) Fall (Acute) Left radial fracture (Acute) Knee laceration (Acute) Cellulitis (Acute) Acute on chronic kidney failure (Acute) Shock (Acute) Hyperkalemia (Acute) Leukocytosis (Acute) Hypotension (Acute) Left ventricular thrombosis (Acute) Left leg cellulitis (Acute) Unspecified open wound, left foot, initial encounter (Acute) Avulsion of skin of left hand (Resolved) Avulsion of skin of right forearm (Resolved) Avulsion of skin of right hand (Resolved) History of subdural hemorrhage (Resolved) Hypotension (Resolved) Rhinovirus (Resolved) Supratherapeutic INR (Resolved) 1. Hypotension; improved, he was placed on Midodrine by ICU team. 2. Apical thrombus; this was found on echocardiogram during this admission, he is on heparin drip and Coumadin his INR is 1.6 today. 3. Cardiomyopathy s/p ICD.. 4. CAD s/p CABG; echo showed an EF ~30%, he does not appear to have clinical evidence of congestive heart failure. 5. Left lobe pneumonia; sputum grew E. coli, antibiotic changed to Meropenem based on sensitivities 6. Acute cystitis urine culture grew E. coli and Burkholderia cepacia 7. Leukocytosis secondary to infectious process above, improving. 8. Chronic atrial fibrillation; he is on Multaq and and now anticoagulated. 9. Hypothyroidism; he is on Synthroid. Code Visit Inpatient E&M: 97501 Subs Hosp L2
[2017-11-30 18:35] LABS: Partial Thromboplast Time 35.1 Seconds (24.1-36.2)
[2017-11-30] MEDS: Pravastatin 20 MG Tablet PO (21:05)
[2017-11-30] MEDS: Heparin Injection (Vial) 5,000 UNIT/ML VIAL IV (21:05)
[2017-12-01] VITALS (13 sets, daily range): BP systolic 108–124; BP diastolic 60–78; PULSE 59–77; RESP 16–20; TEMP 36.2–36.5; O2SAT 93–97
[2017-12-01 03:20] LABS: International Normalized Ratio 2.4; Prothrombin Time (Protime)PT. 26.5 SECONDS (11.7-14.9)
[2017-12-01] MEDS: 0.9% NaCl IVPB Med Flush (250 mL) 15 ML IV (04:05)
[2017-12-01] MEDS: Heparin Injection (Vial) 5,000 UNIT/ML VIAL IV (04:08)
[2017-12-01] MEDS: Midodrine HCl 5 MG Tablet 10 MG PO ×3 (05:19→22:44)
[2017-12-01] MEDS: Menthol/Lanolin/Calamine/Znox 113 GM Tube 1 APPLIC TOPICAL ×3 (05:19→22:46)
[2017-12-01] MEDS: Levothyroxine 75 MCG Tablet PO (05:19)
[2017-12-01] MEDS: Budesonide Respules 0.5 MG/2 ML AMPUL.NEB. INHALATION ×2 (07:31→19:18)
[2017-12-01] MEDS: Ipratropium/Albuterol Sulfate 3 ML AMPUL.NEB INHALATION ×3 (07:31→19:18)
[2017-12-01] MEDS: Aspirin 81 MG TAB.CHEW PO (08:59)
[2017-12-01] MEDS: Carvedilol 3.125 MG TABLET PO ×2 (08:59→22:43)
[2017-12-01] MEDS: Venlafaxine XR 75 MG Capsule PO (08:59)
[2017-12-01] MEDS: Pantoprazole Sodium 20 MG Tablet PO ×2 (09:00→22:43)
--- NOTE | 2017-12-01 11:24 | PN_ITS ---
Patient Problems: Active and Suspected Problems (Last Reviewed 11/26/17 @ 01:32 by Mustapha Hess DO) Fall (Acute) Knee laceration (Acute) Acute on chronic kidney failure (Acute) Shock (Acute) Hyperkalemia (Acute) Hypotension (Acute) Left ventricular thrombosis (Acute) Subjective: Patient was seen and examined. He is lying in bed in no acute distress. States he is fatigued secondary to another patient screaming all night. Denies any shortness of breath, cough, or pain at this time. Nursing staff reports patient tolerating room air, however thinks he needs 1.5 L like he wears at home. Objective: Recent lab and culture data reviewed. 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 Blood cultures are showing no growth thus far. INR is therapeutic today at 2.4. - Physical Exam General: Alert, Oriented x3, Cooperative, No apparent distress, Well developed, Well nourished, - - No conversational dyspnea HEENT: Atraumatic, Normocephalic Oral: Moist Mucosa, No Gingival or Mucosal Lesions/ Ulcerations Neck: Supple, No JVD, Trachea Midline Lungs: No wheeze, No rales, Diminished, Rhonchi - Mostly clears with cough Cardiovascular: Normal S1, Normal S2, No murmurs, Irregular Rate, No rub noted, No Gallop Abdomen: Bowel Sounds Present, Soft, Non Tender, Non-Distended, Obese Extremities: No clubbing, No cyanosis, Edema - pitting bilat LEs, - - legs wrapped w/DILAN Skin: - - wounds on knees covered with dressings/DILAN Musculoskeletal: Tenderness - bilat LEs Lymphatic: No Cervical, Supraclavicular, or Inguinal Adenopathy Neurological: Cranial nerves II-XII grossly intact, Neuro grossly intact, Motor Exam 5/5 strength throughout Psych/Mental Status: - - depressed but conversing, talkative and appears in good spirits today Vital Signs Temp Pulse Resp BP Pulse Ox 97.2 F L 59 L 16 124/78 H 97 12/01/17 08:51 12/01/17 11:03 12/01/17 08:51 12/01/17 08:51 12/01/17 08:51 Oxygen Flow Rate (L/min) 1.5 Oxygen Delivery Method Nasal Cannula Weight: 211 lb 10.3 oz Body Mass Index (BMI) 33.3 Intake and Output for Last 24 Hours 11/29/17 11/30/17 12/01/17 23:59 23:59 23:59 Intake Total 1151 / 1151 1199 / 1199 845 / 845 Output Total 1625 / 1625 550 / 550 425 / 425 Balance -474 / -474 649 / 649 420 / 420 Microbiology Past 72 Hours 11/27/17 07:00 Gram Stain - Final Sputum, Expectorated/Coughed Respiratory Culture - Final Escherichia coli Burkholderia cepacia Laboratory Tests Past 24 Hrs 11/30/17 11/30/17 12/01/17 11:30 18:15 02:40 PT 26.5 H INR 2.4 APTT 120.0 H* 35.1 12/01/17 02:40 PT INR APTT 45.0 H Medical Necessity - Tobacco Use Smoking Status: Former smoker Assessment/Plan All Active Problems (Last Reviewed 11/26/17 @ 01:32 by Mustapha Hess DO) FALL on knees and elbow (Resolved) BILA KNEES LACERATION AND BLEEDING (Resolved) Fall (Acute) Left radial fracture (Acute) Knee laceration (Acute) Cellulitis (Acute) Acute on chronic kidney failure (Acute) Shock (Acute) Hyperkalemia (Acute) Leukocytosis (Acute) Hypotension (Acute) Left ventricular thrombosis (Acute) Left leg cellulitis (Acute) Unspecified open wound, left foot, initial encounter (Acute) Avulsion of skin of left hand (Resolved) Avulsion of skin of right forearm (Resolved) Avulsion of skin of right hand (Resolved) History of subdural hemorrhage (Resolved) Hypotension (Resolved) Rhinovirus (Resolved) Supratherapeutic INR (Resolved) RECOMMENDATIONS: 1. Consider infectious disease consult given history 2. Therapeutic INR, adjust Coumadin as indicated 3. Okay to wean oxygen as tolerated 4. Antibiotics per ID recommendations IMPRESSIONS: 1. Shock Probable multifactorial etiology. Patient does have significantly depressed heart function and was found to have left apical thrombus. Patient is currently on anticoagulation and tolerating well. Patient did have a left lung infiltrate and was initiated on antibiotics initially. However, patient continues to deny any shortness of breath or productive cough. Patient has responded well to the addition of midodrine therapy. 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 It is unclear if this truly needs treatment. This was resistant to Zosyn therapy, so antibiotics have been switched to meropenem. Blood cultures have been negative thus far. 2. 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 New echocardiogram shows an apical thrombus. Patient initiated on anticoagulation with heparin given renal dysfunction. Patient seen by Dr. Hewitt. Appreciate input. INR is therapeutic today. Daily INRs have been ordered. Heparin will has been discontinued. 3. 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 Patient has not been compliant with noninvasive therapy for sleep in the past. The patient does tell me this morning that he has been 100% compliant at home with noninvasive therapy. Home health vs rehab on discharge. This note was generated with [employer] dictation software. It may contain incorrect words, spelling, and punctuation that were not noted in checking the note before signing.
--- NOTE | 2017-12-01 15:44 | PCM.PROGNOTE ---
Patient Problems: Active and Suspected Problems (Last Reviewed 11/26/17 @ 01:32 by Mustapha Hess DO) Fall (Acute) Knee laceration (Acute) Acute on chronic kidney failure (Acute) Shock (Acute) Hyperkalemia (Acute) Hypotension (Acute) Left ventricular thrombosis (Acute) Subjective: Pt complains of intermittent non productive cough and felt subjective chills overnight. Afebrile. He denies SOB at this time. No CP. No pain with deep breath. He wears 3 liters at home, currently on 1.5 and stable. - Physical Exam General: Alert, Oriented x3, Cooperative HEENT: Atraumatic, PERRLA, EOMI, Normocephalic Neck: Supple, No JVD, Negative Carotid Bruits Lungs: Diminished, Rales - faint Cardiovascular: Regular rate, No murmurs Abdomen: Bowel Sounds Present, Soft, Non Tender Extremities: No edema, Capillary Refill Less than 3 Seconds, Edema - 1-2+ BL PE Skin: No rashes, No breakdown Musculoskeletal: No Tenderness to Palpation of Joints or Extremities Neurological: Cranial nerves II-XII grossly intact Psych/Mental Status: Normal Affect, Appropriate, Alert and oriented to time, place, person, mood and affect Vital Signs Temp Pulse Resp BP Pulse Ox 97.3 F L 77 16 108/60 97 12/01/17 14:20 12/01/17 14:30 12/01/17 14:20 12/01/17 14:20 12/01/17 14:20 Oxygen Flow Rate (L/min) 1.5 Oxygen Delivery Method Nasal Cannula Weight: 96 kg Body Mass Index (BMI) 33.3 Intake and Output for Last 24 Hours 11/29/17 11/30/17 12/01/17 23:59 23:59 23:59 Intake Total 1151 / 1151 1199 / 1199 933 / 933 Output Total 1625 / 1625 550 / 550 600 / 600 Balance -474 / -474 649 / 649 333 / 333 Microbiology Past 72 Hours 11/27/17 07:00 Gram Stain - Final Sputum, Expectorated/Coughed Respiratory Culture - Final Escherichia coli Burkholderia cepacia Laboratory Tests Past 24 Hrs 11/30/17 12/01/17 12/01/17 18:15 02:40 02:40 PT 26.5 H INR 2.4 APTT 35.1 45.0 H Medical Necessity - Tobacco Use Smoking Status: Former smoker Assessment/Plan All Active Problems (Last Reviewed 11/26/17 @ 01:32 by Mustapha Hess DO) FALL on knees and elbow (Resolved) BILA KNEES LACERATION AND BLEEDING (Resolved) Fall (Acute) Left radial fracture (Acute) Knee laceration (Acute) Cellulitis (Acute) Acute on chronic kidney failure (Acute) Shock (Acute) Hyperkalemia (Acute) Leukocytosis (Acute) Hypotension (Acute) Left ventricular thrombosis (Acute) Left leg cellulitis (Acute) Unspecified open wound, left foot, initial encounter (Acute) Avulsion of skin of left hand (Resolved) Avulsion of skin of right forearm (Resolved) Avulsion of skin of right hand (Resolved) History of subdural hemorrhage (Resolved) Hypotension (Resolved) Rhinovirus (Resolved) Supratherapeutic INR (Resolved) 1. Hypotension - resolved at this point 2. L lobe pna - E coli, burkolderia. ID consulted. Continue Meropenem. 3. Apiral thrombus - Warfarin therapeuric. DC heparin 4. Acute cystitis - E coli and burkholderia. Same as sputum. Blood cx neg. 5. Debility - PTOT. return to TCU 6. Chronic CHF - systolic - stable. Has ICD 7. CAD - prior CABG/PCI 8. PAfib - rate controlled. 9. Hx DVT - warfarin `0. CKDIII - check am bmp. DC planning: Return to TCU This patient was seen by Palomo Alvarado PA-C under the supervision of Doctor Anthony.
--- NOTE | 2017-12-01 15:53 | CHAPLAIN ---
Type of Pastoral Visit ___ Initial Visit _x__ Follow-up Visit ___ On-call Visit ___ General Patient Visit ___ Spiritual Assessment ___ Family Conference ___ Bereavement ___ Rapid Response ___ Code Blue ___ Other (describe below) Pastoral Care Referral From _x__ Patient ___ Family ___ Nurse ___ Physician ___ Top Stitcher ___ [place] ___ Other (describe below) Sacrament/Intervention _x__ Active listening ___ Anointing ___ Yazdanism ___ Bereavement ___ Communion ___ Wenyd exploration ___ _x__ Life review _x__ Prayer ___ Reconciliation ___ Sacrament of Sick _x__ Supportive presence ___ Wedding ___ Other (describe below) Pastoral Comments
--- NOTE | 2017-12-01 16:00 | PCM.HP.ID ---
Problem List (1) Shock Status: Acute Reason for Consult: shock Consulted by: Dr. Cruz History of Present Illness: The patient is a 82 year old M who initially presented to [facility] after fall with lacerations to both knees. He was given short course of abx and transferred to TCU. Had been doing fine until 11/25 when he developed some dizziness, nausea, SOB. He does not recall what happened. Taken to ED, found to be in shock, started on vanc/zosyn, admitted to icu. Apical thrombus found. Ucx with ESBL ecoli and burkholderia. Sputum with ecoli and burkholderia. Abx changed to meropenem 11/29. Now out of icu, feeling fine, no complaints other than being stuck in the hospital for so long. Full ROS performed and neg except as noted above. - Medical History Past Medical History (Chronic Problems): Chronic Problems (Last Reviewed 11/26/17 @ 01:32 by Mustapha Hess DO) Obesity (Chronic) Deep vein thrombosis (Chronic) Bronchiectasis (Chronic) Chronic systolic heart failure (Chronic) Coronary artery disease (Chronic) Myocardial infarction (Chronic) Diabetes mellitus (Chronic) Hypertension (Chronic) Hypothyroidism (Chronic) Nausea (Chronic) GERD (gastroesophageal reflux disease) (Chronic) Depression (Chronic) Cardiomyopathy (Chronic) S/P CABG x 4 (Chronic) S/P PTCA (percutaneous transluminal coronary angioplasty) (Chronic) Obesity (BMI 30.0-34.9) (Chronic) ALIVIA (obstructive sleep apnea) (Chronic) History of DVT (deep vein thrombosis) (Chronic) COPD (chronic obstructive pulmonary disease) (Chronic) CKD (chronic kidney disease) stage 3, GFR 30-59 ml/min (Chronic) assisted (current) use of anticoagulants (Chronic) Atrial fibrillation (Chronic) Cardiac pacemaker in situ (Chronic) Ventricular tachycardia (Chronic) Chronic systolic congestive heart failure (Chronic) Presence of stent in coronary artery (Chronic ~06/20/04) PTCA/DO to mid RCA 06/20/04 H/O percutaneous transluminal coronary angioplasty (Chronic) 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) CABG x4-PABLITO to LAD, ZIMMERMAN to DX, SVG to CX, SVG to RCA 1985 Atherosclerotic heart disease of [place] coronary artery without angina pectoris (Chronic) CABG x4-PABLITO to LAD, ZIMMERMAN to DX, SVG to CX, SVG to RCA 1985; PTCA/DO to mid RCA 06/20/04 Ischemic cardiomyopathy (Chronic) Benign essential hypertension (Chronic) Type II diabetes mellitus (Chronic) HLD (hyperlipidemia) (Chronic) AICD (automatic cardioverter/defibrillator) present (Chronic) implantation 04/21; gen change and pocket revision 03/17/13 Allergies/Adverse Reactions: Allergies fexofenadine Adverse Reaction (Severe, Verified 11/05/17 13:24) Cough prednisone Adverse Reaction (Severe, Verified 11/05/17 13:24) Unknown oxycodone [From Percocet] Adverse Reaction (Unknown, Verified 11/05/17 13:24) Unknown amiodarone Adverse Reaction (Verified 11/05/17 13:24) affects his lungs/breathing azithromycin Adverse Reaction (Verified 11/05/17 13:24) Other PATIENT STATES HE LOST HIS HEARING AND HIS HAIR levofloxacin [From Levaquin] Adverse Reaction (Verified 11/05/17 13:24) Other linezolid [From Zyvox] Adverse Reaction (Verified 11/05/17 13:24) decreased platelets morphine Adverse Reaction (Verified 11/05/17 13:24) agitated tramadol Adverse Reaction (Verified 11/05/17 13:24) interferes with another medication he is on Home Medications: Ambulatory Orders Medication Instructions Recorded Albuterol Aerosols [Ventolin 2.5 mg INHALATION Q6H PRN PRN 11/26/17 Aerosols] Aspirin [Aspirin, Baby] 81 mg PO DAILY@0800 11/26/17 Carvedilol [Coreg] 3.125 mg PO BID 11/26/17 Dronedarone Hydrochloride [Multaq] 400 mg PO BID 11/26/17 Fluticasone/Salmeterol 1 each IH Q12H 11/26/17 [Fluticasone-Salmeterol 232-14] Ipratropium/Albuterol Sulfate 3 ml INHALATION Q6HWA.RT 11/26/17 [Duoneb] Levothyroxine Sodium [Synthroid] 150 mcg PO SHEPHERD 11/26/17 Levothyroxine [Synthroid] 75 mcg PO MOTUWETHFRSA 11/26/17 Lidocaine [Lidoderm Patch] 1 patch TOPICAL DAILY 11/26/17 Menthol/Lanolin/Calamine/Znox 1 applic TP TID 11/26/17 [Calmoseptine Ointment] Metoclopramide [Reglan] 10 mg PO ACHS 11/26/17 Nutritional Supplement [David - 1 packet PO BIDCM 11/26/17 ORANGE FLAVOR] Pantoprazole Sodium [Protonix] 20 mg PO BID 11/26/17 Potassium Chloride [Klor-Con] 20 meq PO BIDCM 11/26/17 Pravastatin [Pravachol] 20 mg PO QHS 11/26/17 Sacubitril/Valsartan 24/26 mg 1 each PO BID 11/26/17 [Entresto 24 mg-26 mg Tablet] Tiotropium [place] [Spiriva 18 MCG] 1 puff INHALATION DAILY 11/26/17 Venlafaxine XR [Effexor Xr] 75 mg PO DAILY 11/26/17 - Social History SMOKING STATUS:: Former smoker Vital Signs Temp Pulse Resp BP Pulse Ox 97.3 F L 77 16 108/60 97 12/01/17 14:20 12/01/17 14:30 12/01/17 14:20 12/01/17 14:20 12/01/17 14:20 Oxygen Flow Rate (L/min) 1.5 Oxygen Delivery Method Nasal Cannula Weight: 96 kg Body Mass Index (BMI) 33.3 Microbiology Past 72 Hours 11/27/17 07:00 Gram Stain - Final Sputum, Expectorated/Coughed Respiratory Culture - Final Escherichia coli Burkholderia cepacia Laboratory Tests Past 24 Hrs 11/30/17 12/01/17 12/01/17 18:15 02:40 02:40 PT 26.5 H INR 2.4 APTT 35.1 45.0 H - Other Studies Radiology: [] reviewed Other Studies: [] Route of nutrition/ use of supplements: [] Nutritional Intake: [] IV Site: [] Monge Catheter: [] - Physical Exam General: Alert, Cooperative, No apparent distress HEENT: Atraumatic, PERRLA, EOMI Neck: Supple, No Nodes Lungs: Clear to auscultation, Normal air movement Cardiovascular: Regular rate, Regular Rhythm Abdomen: Soft, Non Tender, Non-Distended Extremities: Edema - mild BLE Skin: No rashes, Ulcer/ Wound - Bilat knees wrapped IV Site: Peripheral, without redness Musculoskeletal: No Tenderness to Palpation of Joints or Extremities Neurological: Cranial nerves II-XII grossly intact - Assessment/Plan Antibiotics: [] Assessment/Plan: [] Active and Suspected Problems (Last Reviewed 11/26/17 @ 01:32 by Mustapha Hess DO) Fall (Acute) Knee laceration (Acute) Acute on chronic kidney failure (Acute) Shock (Acute) Hyperkalemia (Acute) Hypotension (Acute) Left ventricular thrombosis (Acute) Shock with ecoli and burkholderia in urine and sputum. Bcx were neg. Off pressors, out of icu. Day 6 of broad empiric coverage, now on meropenem. Not clear if infection was the primary cause of his shock. Continue meropenem for now, but plan on stopping in next 1-2 days. Will follow, thank you, d/w primary team.
--- NOTE | 2017-12-01 17:40 | PN.CARD_ITS ---
Subjectve: The patient is in the PCU. He appears to be awake and alert. He denies chest pain or difficulty breathing. He states he feels tired. Objective: Vital Signs Temp Pulse Resp BP Pulse Ox 97.3 F L 77 16 108/60 97 12/01/17 14:20 12/01/17 14:30 12/01/17 14:20 12/01/17 14:20 12/01/17 14:20 Oxygen Flow Rate (L/min) 1.5 Oxygen Delivery Method Nasal Cannula Weight: 211 lb 10.3 oz Body Mass Index (BMI) 33.3 Intake and Output for Last 24 Hours 11/29/17 11/30/17 12/01/17 23:59 23:59 23:59 Intake Total 1151 / 1151 1199 / 1199 933 / 933 Output Total 1625 / 1625 550 / 550 600 / 600 Balance -474 / -474 649 / 649 333 / 333 General: Awake, Alert, Oriented x 3, Cooperative, No Acute Distress Neck: No JVD Lungs: Clear to auscultation Cardiovascular: Regular Rhythm, Premature Ectopic Beats, Normal S1, Normal S2 Abdomen: Bowel Sounds Present, Soft, Non Tender Extremities: Mild RLE Edema, Mild LLE Edema 11/30/17 18:15: APTT 35.1 12/01/17 02:40: PT 26.5 H, INR 2.4 12/01/17 02:40: APTT 45.0 H Rhythm: Sinus rhythm; intermittent electronic ventricular paced beats; occasional PVCs; one episode of an nonsustained wide complex tachycardia (brief ) potentially compatible with nonsustained VT Medical Necessity - Tobacco Use Smoking Status: Former smoker Assessment/Plan 1. Hypotension The patient's blood pressure appears to be overall improved. He remains off of IV vasopressor agents at this time. 2. Left ventricular apical thrombus This appears compatible with his underlying history of severe ischemic mediated cardiomyopathy and left ventricular wall motion abnormalities and diminished LV systolic function. His INR has increased to greater than 2. His IV heparin has been discontinued. 3. Chronic systolic CHF The patient does have a history of chronic systolic CHF. At the moment he appears to be without acute symptoms. He will need to continue to be monitored. He may eventually need his medications readjusted to balance his volume status if he develops signs of volume overload. 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 Certainly this can contribute to his symptoms of chronic systolic CHF. He is being treated medically. He does not appear to be an ideal candidate for additional invasive evaluation/care at this time. 5. CAD status post previous CABG and PCI The patient does not appear to have evidence of acute coronary syndrome at this time. He will continue risk factor modification and medical management. 6. Atrial fibrillation The patient does appear to have a history of underlying atrial fibrillation. It appears to be paroxysmal. He has been treated with rate control therapy and anticoagulant therapy and antiarrhythmic therapy. He will need to continue his combined medication as tolerated. Of note he is on antiarrhythmic therapy with dronedarone/Multaq. This was started his previous physical scientist prior to his previous outpatient cardiovascular consultation with the [facility] area he stated he was intolerant of other medications such as amiodarone. This was based upon concerns of his underlying pulmonary disease process. There are concerns with respect to using this particular medication in patients with congestive heart failure. However he appears to have been stable on this medication without adverse event thus far. Depending upon his clinical course this may have to be revisited and/or changed over time. 7. Ventricular tachycardia Again he has a history of underlying ventricular dysrhythmias. He has had ventricular ectopy in the hospital. He has been on beta-pramod therapy. Dose has been decreased based upon his blood pressure related issues. He does have an ICD in place. 8. ICD His ICD has been evaluated in the past. It has been functioning appropriately. Will be followed and reassessed as needed. 9. Hyperlipidemia He can continue medical management as deemed appropriate. 10. Hypertension He does have a history of previous hypertension. However at the moment he has been hypotensive. Thus his medications are being adjusted. 11. Diabetes mellitus He will continue medical therapy per internal medicine. 12. Chronic renal insufficiency His creatinine level appears to be slightly improved today. 13. DVT: History of He does have a history of DVT. He has been treated for this in the past. He will need to be monitored for any obvious recurrence and reassessed as deemed appropriate. 14. COPD He does have a history of underlying COPD. He will continue with his care per internal medicine and pulmonology. This note was generated with [employer] software. It may contain incorrect words, spelling, and punctuation that were not noted in checking the note before signing.
[2017-12-01] MEDS: Pravastatin 20 MG Tablet PO (22:43)
[2017-12-02] VITALS (7 sets, daily range): BP systolic 104–128; BP diastolic 63–66; PULSE 60–77; RESP 18–20; TEMP 36.5–36.6; O2SAT 93–94
[2017-12-02] MEDS: Menthol/Lanolin/Calamine/Znox 113 GM Tube 1 APPLIC TOPICAL (05:13)
[2017-12-02] MEDS: Midodrine HCl 5 MG Tablet 10 MG PO (05:15)
[2017-12-02] MEDS: Levothyroxine 75 MCG Tablet PO (05:16)
[2017-12-02] MEDS: 0.9% NaCl Peripheral Flush Adult/Peds IV ×2 (05:17→05:19)
[2017-12-02 05:49] LABS: International Normalized Ratio 3.3
[2017-12-02 05:55] LABS: Anion Gap 7 (5-15); BUN 59 mg/dL (7-18); BUN/Creat Ratio 36.9 RATIO (10-20); Calcium,Total 7.7 mg/dL (8.5-10.1); Chloride 107 mmol/L (98-107); EST Glomerular Filtration Rate 44 mL/min (>60); Est Glom Filt Rate - Afr Amer 54 mL/min (>60); Estimated Creatinine Clearance 33.23 ml/min; Glucose 80 mg/dL (74-106); Potassium 4.1 mmol/L (3.5-5.1); Sodium Level 141 mmol/L (136-145)
[2017-12-02 06:23] LABS: Absolute Lymphocyte Count 2.69 X10^3/ul (0.83-4.51); Absolute Neutrophil Count 6.7 X10^3/uL (2.0-7.7); Basophil# 0.01 X10^3/uL; Basophil% 0.1 % (0-1); Eosinophil# 0.24 X10^3/uL; Eosinophils% 2.1 % (0-5); Hematocrit 30.6 % (40-54); Hemoglobin 9.9 g/dl (13.0-16.5); Lymphocyte # 2.69 X10^3/ul (4.0); Lymphocyte % 23.6 % (19-41); Mean Corp Hgb Conc 32.4 g/gl (32-36); Mean Corpuscular Hgb 29.5 pg (27.0-32.0); Mean Corpuscular Volume 91.1 fL (80-94); Mean Platelet Vol. 10.8 fl (6.2-12.0); Monocyte# 1.74 X10^3/uL; Monocyte% 15.3 % (0-10); Neutrophil # 6.65 X10^3/uL (2.7-7.7); Neutrophil % 58.4 % (47-70); Platelet Count 211 K/mm3 (150-450); RBC Distribution Width CV 20.3 % (11.6-14.6); RBC Distribution Width SD 63.6 fl (35.1-43.9); Red Blood Count 3.36 M/mm3 (4.6-6.2); White Blood Count 11.4 K/mm3 (4.4-11.0)
[2017-12-02 06:31] LABS: Differential Indicated SCAN CRITERIA MET; POSITIVE COUNT NO; POSITIVE DIFFERENTIAL YES; POSITIVE MORPHOLOGY YES
[2017-12-02 07:01] LABS: Anisocytosis 1+; Differential Comment SCAN
[2017-12-02 07:02] LABS: Hypochromasia 1+; Microcytosis 1+; Polychromasia 1+
[2017-12-02] MEDS: Ipratropium/Albuterol Sulfate 3 ML AMPUL.NEB INHALATION (07:11)
[2017-12-02] MEDS: Budesonide Respules 0.5 MG/2 ML AMPUL.NEB. INHALATION (07:11)
[2017-12-02] MEDS: 0.9% NaCl IVPB Med Flush (250 mL) 15 ML IV (09:08)
[2017-12-02] MEDS: Pantoprazole Sodium 20 MG Tablet PO (09:11)
[2017-12-02] MEDS: Venlafaxine XR 75 MG Capsule PO (09:11)
[2017-12-02] MEDS: Aspirin 81 MG TAB.CHEW PO (09:11)
[2017-12-02] MEDS: Carvedilol 3.125 MG TABLET PO (09:11)
--- NOTE | 2017-12-02 10:06 | PN_ITS ---
Patient Problems: Active and Suspected Problems (Last Reviewed 11/26/17 @ 01:32 by Mustapha Hess DO) Shock (Acute) Hyperkalemia (Acute) Hypotension (Acute) Left ventricular thrombosis (Acute) Subjective: Patient was seen and examined. Sitting up in bed in no acute distress. His arms are wrapped and elevated on pillows secondary to edema and third spacing. Denies any cough or shortness of breath. He does cough when using his Acapella and is using PEP consistently. Feels fatigued, not sleeping well at night. Objective: Recent lab and culture data reviewed. 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 Blood cultures are showing no growth thus far. INR is therapeutic today at 3.3. - Physical Exam General: Alert, Oriented x3, Cooperative, No apparent distress HEENT: Atraumatic, Normocephalic Oral: Moist Mucosa Neck: Supple, Trachea Midline Lungs: No rales, Diminished, - - Few rhonchi and wheezes, somewhat clears with cough Cardiovascular: Normal S1, Normal S2, No murmurs, Irregular Rate Abdomen: Soft, Non Tender, Hyperactive Bowel Sounds, Obese Extremities: Diminished Peripheral Pulses, Edema - To bilateral upper and lower extremities., - - Mikhail wraps intact to lower extremities. Toes are dusky, patient notes chronic Skin: - - No changes to previous. Musculoskeletal: No Tenderness to Palpation of Joints or Extremities, Arthritic Changes, - - Missing digits on left hand Lymphatic: No Cervical, Supraclavicular, or Inguinal Adenopathy Neurological: Neuro grossly intact Psych/Mental Status: Alert and oriented to time, place, person, mood and affect Vital Signs Temp Pulse Resp BP Pulse Ox 97.7 F L 77 18 128/63 H 93 12/02/17 04:45 12/02/17 07:30 12/02/17 07:30 12/02/17 04:45 12/02/17 08:26 Oxygen Flow Rate (L/min) 1.5 Oxygen Delivery Method Nasal Cannula Weight: 211 lb 13.828 oz Body Mass Index (BMI) 33.3 Intake and Output for Last 24 Hours 11/30/17 12/01/17 12/02/17 23:59 23:59 23:59 Intake Total 1199 / 1199 1215 / 1215 75 / 75 Output Total 550 / 550 875 / 875 200 / 200 Balance 649 / 649 340 / 340 -125 / -125 Microbiology Past 72 Hours 11/27/17 07:00 Gram Stain - Final Sputum, Expectorated/Coughed Respiratory Culture - Final Escherichia coli Burkholderia cepacia Laboratory Tests Past 24 Hrs 12/01/17 12/02/17 12/02/17 04:35 05:15 05:15 WBC 11.4 H RBC 3.36 L Hgb 9.9 L Hct 30.6 L MCV 91.1 MCH 29.5 MCHC 32.4 RDW 20.3 H RDW Differential 63.6 H Plt Count 211 MPV 10.8 Immature Gran % (Auto) 0.500 Neut % (Auto) 58.4 Lymph % (Auto) 23.6 [place] % (Auto) 15.3 H Eos % (Auto) 2.1 Baso % (Auto) 0.1 Absolute Neuts (auto) 6.7 Absolute Lymphs (auto) 2.69 Total Counted Not Reportable Differential Comment SCAN Polychromasia 1+ Hypochromasia 1+ Anisocytosis 1+ Microcytosis 1+ PT 34.0 H INR 3.3 Sodium Potassium Chloride Carbon Dioxide Anion Gap BUN Creatinine Estim Creat Clear Calc Est GFR (MDRD) Af Amer Est GFR (MDRD) Non-Af BUN/Creatinine Ratio Glucose Hemoglobin A1c 5.0 Calcium 12/02/17 05:15 WBC RBC Hgb Hct MCV MCH MCHC RDW RDW Differential Plt Count MPV Immature Gran % (Auto) Neut % (Auto) Lymph % (Auto) [place] % (Auto) Eos % (Auto) Baso % (Auto) Absolute Neuts (auto) Absolute Lymphs (auto) Total Counted Differential Comment Polychromasia Hypochromasia Anisocytosis Microcytosis PT INR Sodium 141 Potassium 4.1 Chloride 107 Carbon Dioxide 27.0 Anion Gap 7 BUN 59 H Creatinine 1.60 H Estim Creat Clear Calc 33.23 Est GFR (MDRD) Af Amer 54 L Est GFR (MDRD) Non-Af 44 L BUN/Creatinine Ratio 36.9 H Glucose 80 Hemoglobin A1c Calcium 7.7 L Medical Necessity - Tobacco Use Smoking Status: Former smoker Assessment/Plan All Active Problems (Last Reviewed 11/26/17 @ 01:32 by Mustapha Hess DO) FALL on knees and elbow (Resolved) BILA KNEES LACERATION AND BLEEDING (Resolved) Fall (Acute) Left radial fracture (Acute) Knee laceration (Acute) Cellulitis (Acute) Acute on chronic kidney failure (Acute) Shock (Acute) Hyperkalemia (Acute) Leukocytosis (Acute) Hypotension (Acute) Left ventricular thrombosis (Acute) Left leg cellulitis (Acute) Unspecified open wound, left foot, initial encounter (Acute) Avulsion of skin of left hand (Resolved) Avulsion of skin of right forearm (Resolved) Avulsion of skin of right hand (Resolved) History of subdural hemorrhage (Resolved) Hypotension (Resolved) Rhinovirus (Resolved) Supratherapeutic INR (Resolved) RECOMMENDATIONS: 1. Therapeutic INR, adjust Coumadin as indicated 2. Okay to wean oxygen as tolerated 3. Antibiotics per ID recommendations 4. Okay to discharge from pulmonary perspective IMPRESSIONS: 1. Shock Probable multifactorial etiology. Patient does have significantly depressed heart function and was found to have left apical thrombus. Patient is currently on anticoagulation and tolerating well. Patient did have a left lung infiltrate and was initiated on antibiotics initially. However, patient continues to deny any shortness of breath or productive cough. Patient has responded well to the addition of midodrine therapy. 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 ID is following, plans to stop atb today. 2. 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 New echocardiogram shows an apical thrombus. Patient initiated on anticoagulation with heparin given renal dysfunction. Patient seen by Dr. Hewitt. Appreciate input. INR is therapeutic. Daily INRs. 3. 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 Patient has not been compliant with noninvasive therapy for sleep in the past. The patient does tell me that he has been 100% compliant at home with noninvasive therapy. Plans for discharge later today back to TCU for rehab. This note was generated with [employer] dictation software. It may contain incorrect words, spelling, and punctuation that were not noted in checking the note before signing.
--- NOTE | 2017-12-02 10:37 | NURSING ---
JONATAN Young had changed dressings to bilateral knee and bilateral arms. will follow as needed.
--- NOTE | 2017-12-02 10:59 | PCM.PN.ID ---
Patient Problems: Active and Suspected Problems (Last Reviewed 11/26/17 @ 01:32 by Mustapha Hess DO) Shock (Acute) Hyperkalemia (Acute) Hypotension (Acute) Left ventricular thrombosis (Acute) Subjective: Feeling fine, transfer to TCU planned, no fever, no cough or SOB - Physical Exam General: Alert, Cooperative Lungs: Clear to auscultation, Diminished Cardiovascular: Irregular Rate Abdomen: Soft, Non Tender, Non-Distended Skin: No rashes Vital Signs Temp Pulse Resp BP Pulse Ox 97.9 F 66 20 H 104/66 94 12/02/17 10:45 12/02/17 10:45 12/02/17 10:45 12/02/17 10:45 12/02/17 10:45 Oxygen Flow Rate (L/min) 1.5 Oxygen Delivery Method Nasal Cannula Weight: 96.1 kg Body Mass Index (BMI) 33.3 Intake and Output for Last 24 Hours 11/30/17 12/01/17 12/02/17 23:59 23:59 23:59 Intake Total 1199 / 1199 1215 / 1215 75 / 75 Output Total 550 / 550 875 / 875 200 / 200 Balance 649 / 649 340 / 340 -125 / -125 Microbiology Past 72 Hours 11/27/17 07:00 Gram Stain - Final Sputum, Expectorated/Coughed Respiratory Culture - Final Escherichia coli Burkholderia cepacia Laboratory Tests Past 24 Hrs 12/01/17 12/02/17 12/02/17 04:35 05:15 05:15 WBC 11.4 H RBC 3.36 L Hgb 9.9 L Hct 30.6 L MCV 91.1 MCH 29.5 MCHC 32.4 RDW 20.3 H RDW Differential 63.6 H Plt Count 211 MPV 10.8 Immature Gran % (Auto) 0.500 Neut % (Auto) 58.4 Lymph % (Auto) 23.6 [place] % (Auto) 15.3 H Eos % (Auto) 2.1 Baso % (Auto) 0.1 Absolute Neuts (auto) 6.7 Absolute Lymphs (auto) 2.69 Total Counted Not Reportable Differential Comment SCAN Polychromasia 1+ Hypochromasia 1+ Anisocytosis 1+ Microcytosis 1+ PT 34.0 H INR 3.3 Sodium Potassium Chloride Carbon Dioxide Anion Gap BUN Creatinine Estim Creat Clear Calc Est GFR (MDRD) Af Amer Est GFR (MDRD) Non-Af BUN/Creatinine Ratio Glucose Hemoglobin A1c 5.0 Calcium 12/02/17 05:15 WBC RBC Hgb Hct MCV MCH MCHC RDW RDW Differential Plt Count MPV Immature Gran % (Auto) Neut % (Auto) Lymph % (Auto) [place] % (Auto) Eos % (Auto) Baso % (Auto) Absolute Neuts (auto) Absolute Lymphs (auto) Total Counted Differential Comment Polychromasia Hypochromasia Anisocytosis Microcytosis PT INR Sodium 141 Potassium 4.1 Chloride 107 Carbon Dioxide 27.0 Anion Gap 7 BUN 59 H Creatinine 1.60 H Estim Creat Clear Calc 33.23 Est GFR (MDRD) Af Amer 54 L Est GFR (MDRD) Non-Af 44 L BUN/Creatinine Ratio 36.9 H Glucose 80 Hemoglobin A1c Calcium 7.7 L Medical Necessity - Tobacco Use Smoking Status: Former smoker Route of nutrition/ use of supplements: [] Nutritional Intake: [] IV Site: [] Monge Catheter: [] - Assessment/Plan Antibiotics: [] Assessment/Plan: [] Active and Suspected Problems (Last Reviewed 11/26/17 @ 01:32 by Mustapha Hess DO) Fall (Acute) Knee laceration (Acute) Acute on chronic kidney failure (Acute) Shock (Acute) Hyperkalemia (Acute) Hypotension (Acute) Left ventricular thrombosis (Acute) Shock with ecoli and burkholderia in urine and sputum. Bcx were neg. Off pressors, out of icu. Day 7 of broad empiric coverage, now on meropenem. Not clear if infection was the primary cause of his shock. Stop meropenem today. Will follow, d/w primary team.
--- NOTE | 2017-12-02 11:51 | PCM.TXEXTCAR ---
- Diet 11/26/17 01:17 Diet: Cardiac/Low Cholesterol Food consistency:: Regular Liquid Consistency:: Regular/Thin Diet Comments: please include either magic pudding or a protein milkshake w/every meal - Routine Orders/Code Status Suppository Type: Dulcolax 10mg Suppository Frequency: Daily PRN O2 Frequency: Continuous Keep PO Greater than or Equal to (%): 90 Routine Lab Work: CBC - 3 days, BMP - 3 days, INR - tomorrow (12/03) Code Status: Full Code - Wound(s) B/l Upper Ext Wound Type: Scattered skin tears/abrasions R Knee Wound Type: Abrasion Dressing Change: Adaptic L Knee Wound Type: Abrasion Dressing Change: Adaptic right inner forearm Wound Type: Skin Tear Dressing Change: Adaptic R medial antecubital area Wound Type: water blister - Therapies Physical Therapy: Eval and Treat Occupational Therapy: Eval and Treat - Problem/Diagnosis (1) Left ventricular thrombosis Status: Acute Current Visit: Yes (2) PNA (pneumonia) Status: Acute Current Visit: Yes (3) UTI (urinary tract infection) Status: Acute Current Visit: Yes (4) Obesity Status: Chronic Current Visit: No (5) Deep vein thrombosis Status: Chronic Current Visit: No (6) Chronic systolic heart failure Status: Chronic Current Visit: No (7) Coronary artery disease Status: Chronic Current Visit: No (8) Hypertension Status: Chronic Current Visit: No (9) Obesity (BMI 30.0-34.9) Status: Chronic Current Visit: No (10) COPD (chronic obstructive pulmonary disease) Status: Chronic Current Visit: No (11) CKD (chronic kidney disease) stage 3, GFR 30-59 ml/min Status: Chronic Current Visit: No (12) Atrial fibrillation Status: Chronic Current Visit: No (13) Cardiac pacemaker in situ Status: Chronic Current Visit: No (14) Ventricular tachycardia Status: Chronic Current Visit: No (15) Chronic systolic congestive heart failure Status: Chronic Current Visit: No (16) Benign essential hypertension Status: Chronic Current Visit: No (17) HLD (hyperlipidemia) Status: Chronic Current Visit: No (18) AICD (automatic cardioverter/defibrillator) present Status: Chronic Comment: implantation 04/21; gen change and pocket revision 03/17/13 Current Visit: No - Allergies/Procedures Done in Hospital Allergies/Adverse Reactions: Allergies fexofenadine Adverse Reaction (Severe, Verified 11/05/17 13:24) Cough prednisone Adverse Reaction (Severe, Verified 11/05/17 13:24) Unknown oxycodone [From Percocet] Adverse Reaction (Unknown, Verified 11/05/17 13:24) Unknown amiodarone Adverse Reaction (Verified 11/05/17 13:24) affects his lungs/breathing azithromycin Adverse Reaction (Verified 11/05/17 13:24) Other PATIENT STATES HE LOST HIS HEARING AND HIS HAIR levofloxacin [From Levaquin] Adverse Reaction (Verified 11/05/17 13:24) Other linezolid [From Zyvox] Adverse Reaction (Verified 11/05/17 13:24) decreased platelets morphine Adverse Reaction (Verified 11/05/17 13:24) agitated tramadol Adverse Reaction (Verified 11/05/17 13:24) interferes with another medication he is on Procedures: 2-D Echocardiogram - Type of Care/Length of Stay Estimated LOS: Convalescent Care Less Than 30 days Type of Care Needed: Skilled Rehab Potential: Fair Prognosis: Fair - Additional Orders/Day of Discharge Day of Discharge: 12/02/17 - Dietary and Speech Recommendations Dietitian Recommendations/Changes: Rec liberalize diet to regular, low sodium. Rec d/c David BID as no longer indicated. - Follow Up Care Primary Care Physician: Anna Umana DO [Primary Care Provider] - Please follow up with your Primary Care Physician in: 1-2 weeks Please Follow Up With: Sanya Hewitt MD When: 2 weeks Please Follow Up With: Jhonny Douglas DO When: 2 weeks
--- NOTE | 2017-12-02 12:06 | CASEMGMT ---
Patient is ready for d/c to TCU. RAFAELA faxed med list to TCU. Called patient's and left her a message letting her know patient is going to [facility]CU today. [facility] Mikaela SMITH
--- NOTE | 2017-12-02 15:29 | PCM.DC.SUM ---
Discharge Date and Diagnosis Date of Admission: 11/26/17 Date of Discharge: 12/02/17 - Primary Discharge Diagnosis Shock , Hypotension multifactorial Left vent apical thrombus L lobe pna 2/2 E coli, B cepacia Acute cystitis 2/2 E coli, B cepacia Debility CHronic hypoxic respiratory failure CAD Paroxysmal Afib Hx CKDIII hx DVT Hx systolic chf hypothyroidism - Secondary Discharge Diagnosis Chronic Problems (Last Reviewed 11/26/17 @ 01:32 by Mustapha Hess DO) Obesity (Chronic) Deep vein thrombosis (Chronic) Bronchiectasis (Chronic) Chronic systolic heart failure (Chronic) Coronary artery disease (Chronic) Myocardial infarction (Chronic) Diabetes mellitus (Chronic) Hypertension (Chronic) Hypothyroidism (Chronic) Nausea (Chronic) GERD (gastroesophageal reflux disease) (Chronic) Depression (Chronic) Cardiomyopathy (Chronic) S/P CABG x 4 (Chronic) S/P PTCA (percutaneous transluminal coronary angioplasty) (Chronic) Obesity (BMI 30.0-34.9) (Chronic) ALIVIA (obstructive sleep apnea) (Chronic) History of DVT (deep vein thrombosis) (Chronic) COPD (chronic obstructive pulmonary disease) (Chronic) CKD (chronic kidney disease) stage 3, GFR 30-59 ml/min (Chronic) shelter (current) use of anticoagulants (Chronic) Atrial fibrillation (Chronic) Cardiac pacemaker in situ (Chronic) Ventricular tachycardia (Chronic) Chronic systolic congestive heart failure (Chronic) Presence of stent in coronary artery (Chronic ~06/20/04) PTCA/DO to mid RCA 06/20/04 H/O percutaneous transluminal coronary angioplasty (Chronic) 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) CABG x4-PABLITO to LAD, ZIMMERMAN to DX, SVG to CX, SVG to RCA 1985 Atherosclerotic heart disease of [place] coronary artery without angina pectoris (Chronic) CABG x4-PABLITO to LAD, ZIMMERMAN to DX, SVG to CX, SVG to RCA 1985; PTCA/DO to mid RCA 06/20/04 Ischemic cardiomyopathy (Chronic) Benign essential hypertension (Chronic) Type II diabetes mellitus (Chronic) HLD (hyperlipidemia) (Chronic) AICD (automatic cardioverter/defibrillator) present (Chronic) implantation 04/21; gen change and pocket revision 03/17/13 Hospital Course and Treatment Imaging Results: RAD/Chest 1 View (Portable) IMPRESSION: New airspace disease on the left. MediPort catheter on the right appears looped in the neck. Tip is not clearly identified due to overlapping AICD leads. Echo: Interpretation Summary The study was technically difficult. Contrast injection was performed. Based upon the 2D echocardiographic and contrast enhanced images obtained, not all LV wall segments are well visualized, however, based upon the images obtained there appears to be decreased LV systolic function. The estimated ejection fraction is 30 %. Trivial mitral valve insufficiency. Trivial tricuspid valve insufficiency. Right ventricular systolic pressure estimated to be 40 mmHg. There is evidence of diastolic dysfunction. ICD or pacer leads identified within the right atrium ICD or pacer leads identified within the right ventricle. 2D echocardiographic and contrast enhanced images obtained demonstrate a large echolucency in the left ventricular apical area appearing c/w a filling defect appearing c/w a left ventricular apical thrombus. [facility] Stefan/Misael Infectious disease - Luis Alberto 11/26/17 07:39 Consult: Onc/Wound/shipping inspector Routine Comment: Operations: None Procedures: 2-D Echocardiogram Summary of Care Provided: Physical exam on day of discharge: General: Resting comfortably NAD Psych: A/Ox3 normal affect HEENT: PEARRLA AT NC Neck: Supple NT CV: RRR no m/t/r/g/h Resp: BL wheezing Abd: [id number] Soft NT no guarding or rigidity Ext: DP2+= no edema Skin: W/D normal turgor Lymph/Heme: No active bleeding or adenopathy Neuro: CN2-12 intact Hospital course: The patient is a 82 year old M with extensive PMhx as above who presented to the ER from TCU for weakness, was found to be hypotensive in shock with multifactorial etiology including a found left ventricular apical thrombus, LLL pna, UTI, all superimposed on multiple underlying cardiovascular issues. He was palced on the ICU. Echo revealed thrombus. He was started on heparin with warfarin bridge. UTI and pna were found and cultures obtained. Placed on vanc and zosyn. Both urine and sputum grew out E coli and B cepacia, however blood cultures negative. ID consulted. Pt placed on IV meropenem - completed this while here. Blood pressure stablized with addition of midodrine after being stabilized in the ICU on a levophed drip. He remained significantly debilitated and weak. He was transitioned back to TCU in stable condition. This patient was seen by Palomo Alvarado PA-C under the supervision of Doctor Anthony. [] Discharge Diet: Low fat/ Low Cholesterol, 1800 Calorie Control Diet, 2000 mg Sodium Diet Discharge Activity: Return to Normal Activity Home Medications: Medications to take at Discharge Albuterol Aerosols [Ventolin Aerosols] 2.5 mg INHALATION Q6H PRN PRN 11/26/17 Aspirin [Aspirin, Baby] 81 mg PO DAILY@0800 11/26/17 Carvedilol [Coreg] 3.125 mg PO BID 11/26/17 Dronedarone Hydrochloride [Multaq] 400 mg PO BID 11/26/17 Fluticasone/Salmeterol [Fluticasone-Salmeterol 232-14] 1 each IH Q12H 11/26/17 Ipratropium/Albuterol Sulfate [Duoneb] 3 ml INHALATION Q6HWA.RT 11/26/17 Levothyroxine Sodium [Synthroid] 150 mcg PO SHEPHERD 11/26/17 Levothyroxine [Synthroid] 75 mcg PO MOTUWETHFRSA 11/26/17 Menthol/Lanolin/Calamine/Znox [Calmoseptine Ointment] 1 applic TP TID 11/26/17 Metoclopramide [Reglan] 10 mg PO ACHS 11/26/17 Nutritional Supplement [David - ORANGE FLAVOR] 1 packet PO BIDCM 11/26/17 Pantoprazole Sodium [Protonix] 20 mg PO BID 11/26/17 Potassium Chloride [Klor-Con] 20 meq PO BIDCM 11/26/17 Pravastatin [Pravachol] 20 mg PO QHS 11/26/17 Sacubitril/Valsartan 24/26 mg [Entresto 24 mg-26 mg Tablet] 1 each PO BID 11/26/17 Venlafaxine XR [Effexor Xr] 75 mg PO DAILY 11/26/17 Budesonide Aerosol [Pulmicort Respules] 0.5 mg INHALATION BID.RT 12/02/17 Magnesium Hydroxide [Milk Of Magnesia] 30 ml PO DAILY PRN PRN udc 12/02/17 Midodrine HCl [Proamatine] 10 mg PO TID 12/02/17 Warfarin [Coumadin] 3 mg PO DAILY@1700 12/02/17 Primary Care Physician: Fast,Anna, DO [Primary Care Provider] - Please follow up with your Primary Care Physician in: 1-2 weeks Please Follow Up With: Sanya Hewitt MD When: 2 weeks Please Follow Up With: Jhonny Douglas DO When: 2 weeks Disposition: Residential facility Minutes spent on discharge:: 40 Patient Condition:: Stable Medical Necessity - Tobacco Use Smoking Status: Former smoker Meaningful Use Info Meaningful Use Diagnoses (Choose all that apply): None applicable
--- NOTE | 2017-12-02 15:41 | DS.PCM_ITS ---
Discharge Date and Diagnosis Date of Admission: 11/26/17 Date of Discharge: 12/02/17 - Primary Discharge Diagnosis Shock , Hypotension multifactorial Left vent apical thrombus L lobe pna 2/2 E coli, B cepacia Acute cystitis 2/2 E coli, B cepacia Debility CHronic hypoxic respiratory failure CAD Paroxysmal Afib Hx CKDIII hx DVT Hx systolic chf hypothyroidism - Secondary Discharge Diagnosis Chronic Problems (Last Reviewed 11/26/17 @ 01:32 by Mustapha Hess DO) Obesity (Chronic) Deep vein thrombosis (Chronic) Bronchiectasis (Chronic) Chronic systolic heart failure (Chronic) Coronary artery disease (Chronic) Myocardial infarction (Chronic) Diabetes mellitus (Chronic) Hypertension (Chronic) Hypothyroidism (Chronic) Nausea (Chronic) GERD (gastroesophageal reflux disease) (Chronic) Depression (Chronic) Cardiomyopathy (Chronic) S/P CABG x 4 (Chronic) S/P PTCA (percutaneous transluminal coronary angioplasty) (Chronic) Obesity (BMI 30.0-34.9) (Chronic) ALIVIA (obstructive sleep apnea) (Chronic) History of DVT (deep vein thrombosis) (Chronic) COPD (chronic obstructive pulmonary disease) (Chronic) CKD (chronic kidney disease) stage 3, GFR 30-59 ml/min (Chronic) care home (current) use of anticoagulants (Chronic) Atrial fibrillation (Chronic) Cardiac pacemaker in situ (Chronic) Ventricular tachycardia (Chronic) Chronic systolic congestive heart failure (Chronic) Presence of stent in coronary artery (Chronic ~06/20/04) PTCA/DO to mid RCA 06/20/04 H/O percutaneous transluminal coronary angioplasty (Chronic) 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) CABG x4-PABLITO to LAD, ZIMMERMAN to DX, SVG to CX, SVG to RCA 1985 Atherosclerotic heart disease of [place] coronary artery without angina pectoris (Chronic) CABG x4-PABLITO to LAD, ZIMMERMAN to DX, SVG to CX, SVG to RCA 1985; PTCA/DO to mid RCA 06/20/04 Ischemic cardiomyopathy (Chronic) Benign essential hypertension (Chronic) Type II diabetes mellitus (Chronic) HLD (hyperlipidemia) (Chronic) AICD (automatic cardioverter/defibrillator) present (Chronic) implantation 04/21; gen change and pocket revision 03/17/13 Hospital Course and Treatment Imaging Results: RAD/Chest 1 View (Portable) IMPRESSION: New airspace disease on the left. MediPort catheter on the right appears looped in the neck. Tip is not clearly identified due to overlapping AICD leads. Echo: Interpretation Summary The study was technically difficult. Contrast injection was performed. Based upon the 2D echocardiographic and contrast enhanced images obtained, not all LV wall segments are well visualized, however, based upon the images obtained there appears to be decreased LV systolic function. The estimated ejection fraction is 30 %. Trivial mitral valve insufficiency. Trivial tricuspid valve insufficiency. Right ventricular systolic pressure estimated to be 40 mmHg. There is evidence of diastolic dysfunction. ICD or pacer leads identified within the right atrium ICD or pacer leads identified within the right ventricle. 2D echocardiographic and contrast enhanced images obtained demonstrate a large echolucency in the left ventricular apical area appearing c/w a filling defect appearing c/w a left ventricular apical thrombus. 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 Routine Comment: Operations: None Procedures: 2-D Echocardiogram Summary of Care Provided: Physical exam on day of discharge: General: Resting comfortably NAD Psych: A/Ox3 normal affect HEENT: PEARRLA AT NC Neck: Supple NT CV: RRR no m/t/r/g/h Resp: BL wheezing Abd: [id number] Soft NT no guarding or rigidity Ext: DP2+= no edema Skin: W/D normal turgor Lymph/Heme: No active bleeding or adenopathy Neuro: CN2-12 intact Hospital course: The patient is a 82 year old M with extensive PMhx as above who presented to the ER from TCU for weakness, was found to be hypotensive in shock with multifactorial etiology including a found left ventricular apical thrombus, LLL pna, UTI, all superimposed on multiple underlying cardiovascular issues. He was palced on the ICU. Echo revealed thrombus. He was started on heparin with warfarin bridge. UTI and pna were found and cultures obtained. Placed on vanc and zosyn. Both urine and sputum grew out E coli and B cepacia, however blood cultures negative. ID consulted. Pt placed on IV meropenem - completed this while here. Blood pressure stablized with addition of midodrine after being stabilized in the ICU on a levophed drip. He remained significantly debilitated and weak. He was transitioned back to TCU in stable condition. This patient was seen by Palomo Alvarado PA-C under the supervision of Doctor Anthony. [] Discharge Diet: Low fat/ Low Cholesterol, 1800 Calorie Control Diet, 2000 mg Sodium Diet Discharge Activity: Return to Normal Activity Home Medications: Medications to take at Discharge Albuterol Aerosols [Ventolin Aerosols] 2.5 mg INHALATION Q6H PRN PRN 11/26/17 Aspirin [Aspirin, Baby] 81 mg PO DAILY@0800 11/26/17 Carvedilol [Coreg] 3.125 mg PO BID 11/26/17 Dronedarone Hydrochloride [Multaq] 400 mg PO BID 11/26/17 Fluticasone/Salmeterol [Fluticasone-Salmeterol 232-14] 1 each IH Q12H 11/26/17 Ipratropium/Albuterol Sulfate [Duoneb] 3 ml INHALATION Q6HWA.RT 11/26/17 Levothyroxine Sodium [Synthroid] 150 mcg PO SHEPHERD 11/26/17 Levothyroxine [Synthroid] 75 mcg PO MOTUWETHFRSA 11/26/17 Menthol/Lanolin/Calamine/Znox [Calmoseptine Ointment] 1 applic TP TID 11/26/17 Metoclopramide [Reglan] 10 mg PO ACHS 11/26/17 Nutritional Supplement [David - ORANGE FLAVOR] 1 packet PO BIDCM 11/26/17 Pantoprazole Sodium [Protonix] 20 mg PO BID 11/26/17 Potassium Chloride [Klor-Con] 20 meq PO BIDCM 11/26/17 Pravastatin [Pravachol] 20 mg PO QHS 11/26/17 Sacubitril/Valsartan 24/26 mg [Entresto 24 mg-26 mg Tablet] 1 each PO BID Venlafaxine XR [Effexor Xr] 75 mg PO DAILY 11/26/17 Budesonide Aerosol [Pulmicort Respules] 0.5 mg INHALATION BID.RT 12/02/17 Magnesium Hydroxide [Milk Of Magnesia] 30 ml PO DAILY PRN PRN udc 12/02/17 Midodrine HCl [Proamatine] 10 mg PO TID 12/02/17 Warfarin [Coumadin] 3 mg PO DAILY@1700 12/02/17 Primary Care Physician: Fast,Anna, DO [Primary Care Provider] - Please follow up with your Primary Care Physician in: 1-2 weeks Please Follow Up With: Sanya Hewitt MD When: 2 weeks Please Follow Up With: Jhonny Douglas DO When: 2 weeks Disposition: Longterm facility Minutes spent on discharge:: 40 Patient Condition:: Stable Medical Necessity - Tobacco Use Smoking Status: Former smoker Meaningful Use Info Meaningful Use Diagnoses (Choose all that apply): None applicable
== END 2017-12-02 14:13 | disposition skilled nursing facility (03) | DRG 871 ==
LOC: ED 23:40 → ICU 11-26 01:34 → PCU 11-30 14:35
PROVIDERS: Internal Medicine; Internal Medicine Critical Care Medicine; Physician Assistant; Emergency Provider Emergency Medicine; Family Provider Internal Medicine; PCP Internal Medicine; Visit Provider Family Medicine
DX: A41.9 Sepsis, unspecified organism (principal); J18.9 Pneumonia, unspecified organism; R65.21 Severe sepsis with septic shock; I13.0 Hypertensive heart and chronic kidney disease with heart failure and stage 1 through stage 4 chronic kidney disease, or unspecified chronic kidney disease; J96.11 Chronic respiratory failure with hypoxia; I50.22 Chronic systolic (congestive) heart failure; J47.0 Bronchiectasis with acute lower respiratory infection; I47.2 Ventricular tachycardia; N30.00 Acute cystitis without hematuria; E87.5 Hyperkalemia; E03.9 Hypothyroidism, unspecified; F32.9 Major depressive disorder, single episode, unspecified; F41.9 Anxiety disorder, unspecified; E11.22 Type 2 diabetes mellitus with diabetic chronic kidney disease; N18.3 Chronic kidney disease, stage 3 (moderate); I48.0 Paroxysmal atrial fibrillation; I25.10 Atherosclerotic heart disease of native coronary artery without angina pectoris; E78.5 Hyperlipidemia, unspecified; Z86.718 Personal history of other venous thrombosis and embolism; K21.9 Gastro-esophageal reflux disease without esophagitis; Z95.1 Presence of aortocoronary bypass graft; B96.20 Unspecified Escherichia coli [E. coli] as the cause of diseases classified elsewhere; B96.89 Other specified bacterial agents as the cause of diseases classified elsewhere; I51.3 Intracardiac thrombosis, not elsewhere classified; R53.81 Other malaise; Z95.5 Presence of coronary angioplasty implant and graft; Z95.810 Presence of automatic (implantable) cardiac defibrillator; Z87.891 Personal history of nicotine dependence; G47.33 Obstructive sleep apnea (adult) (pediatric); J84.10 Pulmonary fibrosis, unspecified; I25.2 Old myocardial infarction; I25.5 Ischemic cardiomyopathy
CPT/HCPCS: 36415; 71045; 80048; 80053; 81001; 82533; 83036; 83605; 83735; 84100; 84439; 84443; 84481; 84484; 85025; 85027; 85610; 85730; 87040; 87070; 87077; 87086; 87088; 87186; 87205; 87641; 93005; 93306; 94640; 94667; 94668; 94762; 97162; 97165; 97530; 97535; 97802; 99284; J2185; J7030; J7040; J7050; Q9957; A4216; C8929; J0834; J3490

== ENCOUNTER 2017-12-02 14:20 | Inpatient (IN) | payer MEDICARE, OTHER, SELFPAY ==
[2017-12-02 14:52] VITALS: BP 119/66; PULSE 71; RESP 18; TEMP 35.9; O2SAT 94
[2017-12-02 14:59] VITALS: BMI 34.0
[2017-12-02 15:08] VITALS: BMI 34.1
--- NOTE | 2017-12-02 15:24 | NURSING ---
1420 ARRIVED FROM U VIA BED
[2017-12-02] MEDS: Pantoprazole Sodium 20 MG Tablet PO (17:16)
[2017-12-02] MEDS: Metoclopramide 10 MG Tablet PO ×2 (17:16→21:52)
[2017-12-02] MEDS: SACUBITRIL/VALSARTAN 24/26 MG TABLET 1 EACH PO (17:51)
[2017-12-02] MEDS: Carvedilol 3.125 MG TABLET PO (17:51)
--- NOTE | 2017-12-02 18:17 | NURSING ---
DR PATEL NOTIFIED OF LOW BP'S PT ON MIDODRINE, NEW ORDER TO DC ENTRESTO MEDICATION
--- NOTE | 2017-12-02 20:31 | PCM.HP.STD ---
Problem List (1) Sepsis Status: Acute (2) HCAP (healthcare-associated pneumonia) Status: Acute (3) Apical mural thrombus Status: Acute (4) Sleep apnea Status: Acute (5) UTI (urinary tract infection) Status: Acute (6) Obesity Status: Chronic Qualifiers: (7) Deep vein thrombosis Status: Chronic (8) Bronchiectasis Status: Chronic (9) Chronic systolic heart failure Status: Chronic (10) Coronary artery disease Status: Chronic Qualifiers: (11) Myocardial infarction Status: Chronic (12) Diabetes mellitus Status: Chronic (13) Hypertension Status: Chronic (14) Hypothyroidism Status: Chronic (15) Nausea Status: Chronic (16) GERD (gastroesophageal reflux disease) Status: Chronic (17) Depression Status: Chronic (18) COPD (chronic obstructive pulmonary disease) Status: Chronic Qualifiers: (19) Atrial fibrillation Status: Chronic Qualifiers: (20) HLD (hyperlipidemia) Status: Chronic Qualifiers: History of Present Illness Date of Admission: 12/02/17 Chief Complaint: Here for rehabilitation, strengthening, prior to discharge home with spouse. The patient is a 82 year old Male with below past medical history TCU resident admitted to [facility] 11/26/2017. 11/26/2017 Echo decreased LV systolic function. EF 30%. Diastolic dysfunction. Treated with Vancomycin, Zosyn for sepsis. ID recommended Meropenem thru 12/02/2017 following urine, sputum results. 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 UTI secondary to ESBL E. Coli, Burkholderia Cepacia. Noted to have apical thrombus treated with Lovenox/coumadin bridge. Blood cultures negative to date. Midodrine to maintain blood pressure. 12/02/2017 Admit to TCU for rehabilitation, strengthening, prior to discharge home with spouse. Past Medical History Past Medical History (Chronic Problems): Chronic Problems (Last Reviewed 11/26/17 @ 01:32 by Mustapha Hess DO) Obesity (Chronic) Deep vein thrombosis (Chronic) Bronchiectasis (Chronic) Chronic systolic heart failure (Chronic) Coronary artery disease (Chronic) Myocardial infarction (Chronic) Diabetes mellitus (Chronic) Hypertension (Chronic) Hypothyroidism (Chronic) Nausea (Chronic) GERD (gastroesophageal reflux disease) (Chronic) Depression (Chronic) Cardiomyopathy (Chronic) S/P CABG x 4 (Chronic) S/P PTCA (percutaneous transluminal coronary angioplasty) (Chronic) Obesity (BMI 30.0-34.9) (Chronic) ALIVIA (obstructive sleep apnea) (Chronic) History of DVT (deep vein thrombosis) (Chronic) COPD (chronic obstructive pulmonary disease) (Chronic) CKD (chronic kidney disease) stage 3, GFR 30-59 ml/min (Chronic) senior living (current) use of anticoagulants (Chronic) Atrial fibrillation (Chronic) Cardiac pacemaker in situ (Chronic) Ventricular tachycardia (Chronic) Chronic systolic congestive heart failure (Chronic) Presence of stent in coronary artery (Chronic ~06/20/04) PTCA/DO to mid RCA 06/20/04 H/O percutaneous transluminal coronary angioplasty (Chronic) 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) CABG x4-PABLITO to LAD, ZIMMERMAN to DX, SVG to CX, SVG to RCA 1985 Atherosclerotic heart disease of [place] coronary artery without angina pectoris (Chronic) CABG x4-PABLITO to LAD, ZIMMERMAN to DX, SVG to CX, SVG to RCA 1985; PTCA/DO to mid RCA 06/20/04 Ischemic cardiomyopathy (Chronic) Benign essential hypertension (Chronic) Type II diabetes mellitus (Chronic) HLD (hyperlipidemia) (Chronic) AICD (automatic cardioverter/defibrillator) present (Chronic) implantation 04/21; gen change and pocket revision 03/17/13 Medical History: Medical History (Last Reviewed 11/26/17 @ 01:32 by Mustapha Hess DO) Old myocardial infarction (Chronic) I25.2 Atherosclerotic heart disease of [place] coronary artery without angina pectoris (Chronic) I25.10 CABG x4-PABLITO to LAD, ZIMMERMAN to DX, SVG to CX, SVG to RCA 1985; PTCA/DO to mid RCA 06/20/04 Ischemic cardiomyopathy (Chronic) I25.5 Benign essential hypertension (Chronic) I10 Type II diabetes mellitus (Chronic) E11.9 HLD (hyperlipidemia) (Chronic) E78.5 AICD (automatic cardioverter/defibrillator) present (Chronic) Z95.810 implantation 04/21; gen change and pocket revision 03/17/13 Anemia of chronic renal failure, stage 3 (moderate) N18.3, D63.1 COPD (chronic obstructive pulmonary disease) J44.9 Hiatal hernia with gastroesophageal reflux K21.9, K44.9 History of DVT (deep vein thrombosis) Z86.718 History of prostate cancer Z85.46 Hypothyroidism E03.9 ALIVIA (obstructive sleep apnea) G47.33 Osteomyelitis M86.9 Peripheral vascular disease I73.9 Pulmonary fibrosis J84.10 Occlusion of left subclavian vein I82.B12 port placement rt side Acute bronchitis (Inactive) J20.9 Acute exacerbation of chronic obstructive pulmonary disease (Inactive) J44.1 Anemia of chronic renal failure, stage 3 (moderate) (Inactive) N18.3, D63.1 Aspiration pneumonia (Inactive) J69.0 CAD (coronary artery disease) (Inactive) I25.10 s/p cabg ef=40% negative stress 8/14 COPD (chronic obstructive pulmonary disease) (Inactive) J44.9 Chronic CHF (Inactive) I50.9 ef=40% Chronic anticoagulation (Inactive) Z79.01 Hiatal hernia with gastroesophageal reflux (Inactive) K21.9, K44.9 History of DVT (deep vein thrombosis) (Inactive) Z86.718 on coumadin History of prostate cancer (Inactive) Hypothyroidism (Inactive) E03.9 ALIVIA (obstructive sleep apnea) (Inactive) G47.33 PVD (peripheral vascular disease) (Inactive) I73.9 Subtherapeutic international normalized ratio (INR) (Inactive) R79.1 Allergies fexofenadine Adverse Reaction (Severe, Verified 11/05/17 13:24) Cough prednisone Adverse Reaction (Severe, Verified 11/05/17 13:24) Unknown oxycodone [From Percocet] Adverse Reaction (Unknown, Verified 11/05/17 13:24) Unknown amiodarone Adverse Reaction (Verified 11/05/17 13:24) affects his lungs/breathing azithromycin Adverse Reaction (Verified 11/05/17 13:24) Other PATIENT STATES HE LOST HIS HEARING AND HIS HAIR levofloxacin [From Levaquin] Adverse Reaction (Verified 11/05/17 13:24) Other linezolid [From Zyvox] Adverse Reaction (Verified 11/05/17 13:24) decreased platelets morphine Adverse Reaction (Verified 11/05/17 13:24) agitated tramadol Adverse Reaction (Verified 11/05/17 13:24) interferes with another medication he is on Home Medications: Ambulatory Orders Medication Instructions Recorded Albuterol Aerosols [Ventolin 2.5 mg INHALATION Q6H PRN PRN 06/13/18 Aerosols] Aspirin [Aspirin, Baby] 81 mg PO DAILY@0800 11/26/17 Carvedilol [Coreg] 3.125 mg PO BID 11/26/17 Dronedarone Hydrochloride [Multaq] 400 mg PO BID 11/26/17 Fluticasone/Salmeterol 1 each IH Q12H 11/26/17 [Fluticasone-Salmeterol 232-14] Ipratropium/Albuterol Sulfate 3 ml INHALATION Q6HWA.RT 11/26/17 [Duoneb] Levothyroxine Sodium [Synthroid] 150 mcg PO SHEPHERD 11/26/17 Levothyroxine [Synthroid] 75 mcg PO MOTUWETHFRSA 11/26/17 Menthol/Lanolin/Calamine/Znox 1 applic TP TID 11/26/17 [Calmoseptine Ointment] Metoclopramide [Reglan] 10 mg PO ACHS 11/26/17 Nutritional Supplement [David - 1 packet PO BIDCM 11/26/17 [place]ANGE FLAVOR] Pantoprazole Sodium [Protonix] 20 mg PO BID 11/26/17 Potassium Chloride [Klor-Con] 20 meq PO BIDCM 11/26/17 Pravastatin [Pravachol] 20 mg PO QHS 11/26/17 Sacubitril/Valsartan 24/26 mg 1 each PO BID 11/26/17 [Entresto 24 mg-26 mg Tablet] Venlafaxine XR [Effexor Xr] 75 mg PO DAILY 11/26/17 Budesonide Aerosol [Pulmicort 0.5 mg INHALATION BID.RT 12/02/17 Respules] Magnesium Hydroxide [Milk Of 30 ml PO DAILY PRN PRN udc 12/02/17 Magnesia] Midodrine HCl [Proamatine] 10 mg PO TID 12/02/17 Warfarin [Coumadin] 3 mg PO DAILY@1700 12/02/17 Surgical History: Surgical History (Last Reviewed 11/26/17 @ 01:33 by Mustapha Hess DO) H/O percutaneous transluminal coronary angioplasty (Chronic) Z98.61 Aortocoronary bypass status (Chronic) Onset Date: ~1985 Z95.1 CABG x4-PABLITO to LAD, ZIMMERMAN to DX, SVG to CX, SVG to RCA 1986 History of total knee replacement Z96.659 bilateral History of prostatectomy Z98.890, Z90.79 History of total knee replacement (Inactive) Z96.659 Left Hx of CABG (Inactive) Surgical History: coronary bypass surgery, pacemaker implantation, total knee arthroplasty - BL, - - 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 Jennings, PCI/stents. Psychiatric History: No pertinent psych hx Lives: Spouse/ Significant Other Smoking Status: Former smoker Tobacco Use: Non-smoker Alcohol: None Drugs: None - *Family History Maternal Family History: Family History (Last Reviewed 11/26/17 @ 01:33 by Mustapha Hess DO) Brother Heart disease History Items: No pertinent history Paternal Family History: Family History (Last Reviewed 11/26/17 @ 01:33 by Mustapha Hess DO) Brother Heart disease History Items: No pertinent history Review of Systems Constitutional: Reports: Weakness. Denies: Chills, Fever, Weight Change HEENT: Denies: Head Aches, Sinus Congestion, Sinus Drainage Cardiovascular: Denies: Chest Pain, Palpitations Respiratory: Denies: Cough, Shortness of breath at rest, Sputum production Gastrointestinal: Denies: Abdominal Pain, Nausea, Vomiting Genitourinary: Denies: Dysuria Musculoskeletal: Denies: Joint Pain, Joint Tenderness Skin: Denies: Rash, Wounds Neurological: Denies: Numbness, Tingling, Focal weakness Psychiatric: Denies: Anxiety, Depression, Homicidal Ideations, Suicidal Ideations Hematologic/ Lymphatic: Denies: Easy Bruising, Easy Bleeding VTE Information - Inpt Only VTE Present on Admission: No VTE Mechan Device Prophylaxis: Knee High GRANT Hose VTE Pharm Prophylaxis ordered?: No Reason prophylaxis not ordered:: Treatment Not Indicated Patient Problems: Active and Suspected Problems (Last Reviewed 11/26/17 @ 01:32 by Mustapha Hess DO) Sepsis (Acute) HCAP (healthcare-associated pneumonia) (Acute) Apical mural thrombus (Acute) Sleep apnea (Acute) - Physical Exam General: Alert, Oriented x3, Cooperative HEENT: Atraumatic, PERRLA, EOMI, Normocephalic Neck: Supple, No JVD, Negative Carotid Bruits Lungs: Clear to auscultation, Normal air movement Cardiovascular: Regular rate, No murmurs Abdomen: Bowel Sounds Present, Soft, Non Tender Extremities: No edema, Capillary Refill Less than 3 Seconds Skin: No rashes, No breakdown Musculoskeletal: No Tenderness to Palpation of Joints or Extremities Neurological: Cranial nerves II-XII grossly intact Psych/Mental Status: Normal Affect, Appropriate Vital Signs Temp Pulse Resp BP Pulse Ox 96.7 F L 71 18 119/66 94 12/02/17 14:52 12/02/17 14:52 12/02/17 14:52 12/02/17 14:52 12/02/17 14:52 Oxygen Flow Rate (L/min) 1 Oxygen Delivery Method Nasal Cannula Weight: 95.7 kg Body Mass Index (BMI) 34.0 Intake and Output for Last 24 Hours 11/30/17 12/01/17 12/02/17 23:59 23:59 23:59 Intake Total 120 / 120 Balance 120 / 120 Assessment/Plan All Active Problems (Last Reviewed 11/26/17 @ 01:32 by Mustapha Hess DO) PNA (pneumonia) (Acute) UTI (urinary tract infection) (Acute) Sepsis (Acute) HCAP (healthcare-associated pneumonia) (Acute) Apical mural thrombus (Acute) Sleep apnea (Acute) FALL on knees and elbow (Resolved) BILA KNEES LACERATION AND BLEEDING (Resolved) Fall (Acute) Left radial fracture (Acute) Knee laceration (Acute) Cellulitis (Acute) Acute on chronic kidney failure (Acute) Shock (Acute) Hyperkalemia (Acute) Leukocytosis (Acute) Hypotension (Acute) Left ventricular thrombosis (Acute) Left leg cellulitis (Acute) Unspecified open wound, left foot, initial encounter (Acute) Avulsion of skin of left hand (Resolved) Avulsion of skin of right forearm (Resolved) Avulsion of skin of right hand (Resolved) History of subdural hemorrhage (Resolved) Hypotension (Resolved) Rhinovirus (Resolved) Supratherapeutic INR (Resolved) 82 year old male with below past medical history hospitalized for sepsis secondary to E. Coli, Burkholderia Cepacia, HCAP, Urinary tract infection, complicated by apical thrombus, admitted to TCU with debility, here for rehabilitation, strengthening, prior to discharge home with spouse. Debility - PT/OT. Pain - Tylenol 1000MG Q8H PRN mild pain. Bowel - Miralax 17GM daily, Senna/colace 1 tablet BID, Dulcolax 10MG daily PRN. Pneumonia vaccination - Administer Prevnar 13 and/or Pneumovax 23 as necessary. DVT prophylaxis - Not necessary, already on warfarin. COPD - Duoneb 3ML Q6H, Albuterol 2.5MG Q6H PRN, Pulmicort 0.5MG BID. Coronary Artery Disease - Coreg 3.125MG BID, Aspirin 81MG daily. Atrial Fibrillation/Apical thrombus - Coreg 3.125MG BID, Multaq 400MG BID, Warfarin 3MG daily, follow INR. Hypothyroidism - Levothyroxine 75MCG 6 days/week, 150MCG 1 day/week. GERD - Pantoprazole 20MG BID, MOM 30ML daily PRN. Skin irritation - Calmoseptine TID buttocks. Nausea - Reglan 10MG QACHS, he is eating better, consider tapering down to avoid extrapyramidal symptoms. Orthostatic hypotension - Midodrine 10MG TID. Nutrition - David 1 packet BID. Hypokalemia K-Dur 20MEQ BID. Hyperlipidemia - Pravastatin 20MG QHS. Depression - Venlafaxine XR 75MG daily.
--- NOTE | 2017-12-02 20:42 | HP.PCM_ITS ---
Problem List (1) Sepsis Status: Acute (2) HCAP (healthcare-associated pneumonia) Status: Acute (3) Apical mural thrombus Status: Acute (4) Sleep apnea Status: Acute (5) UTI (urinary tract infection) Status: Acute (6) Obesity Status: Chronic Qualifiers: (7) Deep vein thrombosis Status: Chronic (8) Bronchiectasis Status: Chronic (9) Chronic systolic heart failure Status: Chronic (10) Coronary artery disease Status: Chronic Qualifiers: (11) Myocardial infarction Status: Chronic (12) Diabetes mellitus Status: Chronic (13) Hypertension Status: Chronic (14) Hypothyroidism Status: Chronic (15) Nausea Status: Chronic (16) GERD (gastroesophageal reflux disease) Status: Chronic (17) Depression Status: Chronic (18) COPD (chronic obstructive pulmonary disease) Status: Chronic Qualifiers: (19) Atrial fibrillation Status: Chronic Qualifiers: (20) HLD (hyperlipidemia) Status: Chronic Qualifiers: History of Present Illness Date of Admission: 12/02/17 Chief Complaint: Here for rehabilitation, strengthening, prior to discharge home with spouse. The patient is a 82 year old Male with below past medical history TCU resident admitted to [facility] 11/26/2017. 11/26/2017 Echo decreased LV systolic function. EF 30%. Diastolic dysfunction. Treated with Vancomycin, Zosyn for sepsis. ID recommended Meropenem thru 12/02/2017 following urine, sputum results. 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 UTI secondary to ESBL E. Coli, Burkholderia Cepacia. Noted to have apical thrombus treated with Lovenox/coumadin bridge. Blood cultures negative to date. Midodrine to maintain blood pressure. 12/02/2017 Admit to TCU for rehabilitation, strengthening, prior to discharge home with spouse. Past Medical History Past Medical History (Chronic Problems): Chronic Problems (Last Reviewed 11/26/17 @ 01:32 by Mustapha Hess DO) Obesity (Chronic) Deep vein thrombosis (Chronic) Bronchiectasis (Chronic) Chronic systolic heart failure (Chronic) Coronary artery disease (Chronic) Myocardial infarction (Chronic) Diabetes mellitus (Chronic) Hypertension (Chronic) Hypothyroidism (Chronic) Nausea (Chronic) GERD (gastroesophageal reflux disease) (Chronic) Depression (Chronic) Cardiomyopathy (Chronic) S/P CABG x 4 (Chronic) S/P PTCA (percutaneous transluminal coronary angioplasty) (Chronic) Obesity (BMI 30.0-34.9) (Chronic) ALIVIA (obstructive sleep apnea) (Chronic) History of DVT (deep vein thrombosis) (Chronic) COPD (chronic obstructive pulmonary disease) (Chronic) CKD (chronic kidney disease) stage 3, GFR 30-59 ml/min (Chronic) MCFP (current) use of anticoagulants (Chronic) Atrial fibrillation (Chronic) Cardiac pacemaker in situ (Chronic) Ventricular tachycardia (Chronic) Chronic systolic congestive heart failure (Chronic) Presence of stent in coronary artery (Chronic ~06/20/04) PTCA/DO to mid RCA 06/20/04 H/O percutaneous transluminal coronary angioplasty (Chronic) 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) CABG x4-PABLITO to LAD, ZIMMERMAN to DX, SVG to CX, SVG to RCA 1985 Atherosclerotic heart disease of [place] coronary artery without angina pectoris (Chronic) CABG x4-PABLITO to LAD, ZIMMERMAN to DX, SVG to CX, SVG to RCA 1985; PTCA/DO to mid RCA 06/20/04 Ischemic cardiomyopathy (Chronic) Benign essential hypertension (Chronic) Type II diabetes mellitus (Chronic) HLD (hyperlipidemia) (Chronic) AICD (automatic cardioverter/defibrillator) present (Chronic) implantation 04/21; gen change and pocket revision 03/17/13 Medical History: Medical History (Last Reviewed 11/26/17 @ 01:32 by Mustapha Hess DO) Old myocardial infarction (Chronic) I25.2 Atherosclerotic heart disease of [place] coronary artery without angina pectoris (Chronic) I25.10 CABG x4-PABLITO to LAD, ZIMMERMAN to DX, SVG to CX, SVG to RCA 1985; PTCA/DO to mid RCA 06/20/04 Ischemic cardiomyopathy (Chronic) I25.5 Benign essential hypertension (Chronic) I10 Type II diabetes mellitus (Chronic) E11.9 HLD (hyperlipidemia) (Chronic) E78.5 AICD (automatic cardioverter/defibrillator) present (Chronic) Z95.810 implantation 04/21; gen change and pocket revision 03/17/13 Anemia of chronic renal failure, stage 3 (moderate) N18.3, D63.1 COPD (chronic obstructive pulmonary disease) J44.9 Hiatal hernia with gastroesophageal reflux K21.9, K44.9 History of DVT (deep vein thrombosis) Z86.718 History of prostate cancer Z85.46 Hypothyroidism E03.9 ALIVIA (obstructive sleep apnea) G47.33 Osteomyelitis M86.9 Peripheral vascular disease I73.9 Pulmonary fibrosis J84.10 Occlusion of left subclavian vein I82.B12 port placement rt side Acute bronchitis (Inactive) J20.9 Acute exacerbation of chronic obstructive pulmonary disease (Inactive) J44.1 Anemia of chronic renal failure, stage 3 (moderate) (Inactive) N18.3, D63.1 Aspiration pneumonia (Inactive) J69.0 CAD (coronary artery disease) (Inactive) I25.10 s/p cabg ef=40% negative stress 8/14 COPD (chronic obstructive pulmonary disease) (Inactive) J44.9 Chronic CHF (Inactive) I50.9 ef=40% Chronic anticoagulation (Inactive) Z79.01 Hiatal hernia with gastroesophageal reflux (Inactive) K21.9, K44.9 History of DVT (deep vein thrombosis) (Inactive) Z86.718 on coumadin History of prostate cancer (Inactive) Hypothyroidism (Inactive) E03.9 ALIVIA (obstructive sleep apnea) (Inactive) G47.33 PVD (peripheral vascular disease) (Inactive) I73.9 Subtherapeutic international normalized ratio (INR) (Inactive) R79.1 Allergies fexofenadine Adverse Reaction (Severe, Verified 11/05/17 13:24) Cough prednisone Adverse Reaction (Severe, Verified 11/05/17 13:24) Unknown oxycodone [From Percocet] Adverse Reaction (Unknown, Verified 11/05/17 13:24) Unknown amiodarone Adverse Reaction (Verified 11/05/17 13:24) affects his lungs/breathing azithromycin Adverse Reaction (Verified 11/05/17 13:24) Other PATIENT STATES HE LOST HIS HEARING AND HIS HAIR levofloxacin [From Levaquin] Adverse Reaction (Verified 11/05/17 13:24) Other linezolid [From Zyvox] Adverse Reaction (Verified 11/05/17 13:24) decreased platelets morphine Adverse Reaction (Verified 11/05/17 13:24) agitated tramadol Adverse Reaction (Verified 11/05/17 13:24) interferes with another medication he is on Home Medications: Ambulatory Orders Medication Instructions Recorded Albuterol Aerosols [Ventolin 2.5 mg INHALATION Q6H PRN PRN 06/13/18 Aerosols] Aspirin [Aspirin, Baby] 81 mg PO DAILY@0800 11/26/17 Carvedilol [Coreg] 3.125 mg PO BID 11/26/17 Dronedarone Hydrochloride [Multaq] 400 mg PO BID 11/26/17 Fluticasone/Salmeterol 1 each IH Q12H 11/26/17 [Fluticasone-Salmeterol 232-14] Ipratropium/Albuterol Sulfate 3 ml INHALATION Q6HWA.RT 11/26/17 [Duoneb] Levothyroxine Sodium [Synthroid] 150 mcg PO SHEPHERD 11/26/17 Levothyroxine [Synthroid] 75 mcg PO [id number] 11/26/17 Menthol/Lanolin/Calamine/Znox 1 applic TP TID 11/26/17 [Calmoseptine Ointment] Metoclopramide [Reglan] 10 mg PO ACHS 11/26/17 Nutritional Supplement [David - 1 packet PO BIDCM 11/26/17 ORANGE FLAVOR] Pantoprazole Sodium [Protonix] 20 mg PO BID 11/26/17 Potassium Chloride [Klor-Con] 20 meq PO BIDCM 11/26/17 Pravastatin [Pravachol] 20 mg PO QHS 11/26/17 Sacubitril/Valsartan 24/26 mg 1 each PO BID 11/26/17 [Entresto 24 mg-26 mg Tablet] Venlafaxine XR [Effexor Xr] 75 mg PO DAILY 11/26/17 Budesonide Aerosol [Pulmicort 0.5 mg INHALATION BID.RT 12/02/17 Respules] Magnesium Hydroxide [Milk Of 30 ml PO DAILY PRN PRN udc 12/02/17 Magnesia] Midodrine HCl [Proamatine] 10 mg PO TID 12/02/17 Warfarin [Coumadin] 3 mg PO DAILY@1700 12/02/17 Surgical History: Surgical History (Last Reviewed 11/26/17 @ 01:33 by Mustapha Hess DO) H/O percutaneous transluminal coronary angioplasty (Chronic) Z98.61 Aortocoronary bypass status (Chronic) Onset Date: ~1985 Z95.1 CABG x4-PABLITO to LAD, ZIMMERMAN to DX, SVG to CX, SVG to RCA 1986 History of total knee replacement Z96.659 bilateral History of prostatectomy Z98.890, Z90.79 History of total knee replacement (Inactive) Z96.659 Left Hx of CABG (Inactive) Surgical History: coronary bypass surgery, pacemaker implantation, total knee arthroplasty - BL, - - 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 Jennings , PCI/stents. Psychiatric History: No pertinent psych hx Lives: Spouse/ Significant Other Smoking Status: Former smoker Tobacco Use: Non-smoker Alcohol: None Drugs: None - *Family History Maternal Family History: Family History (Last Reviewed 11/26/17 @ 01:33 by Mustapha Hess DO) Brother Heart disease History Items: No pertinent history Paternal Family History: Family History (Last Reviewed 11/26/17 @ 01:33 by Mustapha Hess DO) Brother Heart disease History Items: No pertinent history Review of Systems Constitutional: Reports: Weakness. Denies: Chills, Fever, Weight Change HEENT: Denies: Head Aches, Sinus Congestion, Sinus Drainage Cardiovascular: Denies: Chest Pain, Palpitations Respiratory: Denies: Cough, Shortness of breath at rest, Sputum production Gastrointestinal: Denies: Abdominal Pain, Nausea, Vomiting Genitourinary: Denies: Dysuria Musculoskeletal: Denies: Joint Pain, Joint Tenderness Skin: Denies: Rash, Wounds Neurological: Denies: Numbness, Tingling, Focal weakness Psychiatric: Denies: Anxiety, Depression, Homicidal Ideations, Suicidal Ideations Hematologic/ Lymphatic: Denies: Easy Bruising, Easy Bleeding VTE Information - Inpt Only VTE Present on Admission: No VTE Mechan Device Prophylaxis: Knee High GRANT Hose VTE Pharm Prophylaxis ordered?: No Reason prophylaxis not ordered:: Treatment Not Indicated Patient Problems: Active and Suspected Problems (Last Reviewed 11/26/17 @ 01:32 by Mustapha Hess DO) Sepsis (Acute) HCAP (healthcare-associated pneumonia) (Acute) Apical mural thrombus (Acute) Sleep apnea (Acute) - Physical Exam General: Alert, Oriented x3, Cooperative HEENT: Atraumatic, PERRLA, EOMI, Normocephalic Neck: Supple, No JVD, Negative Carotid Bruits Lungs: Clear to auscultation, Normal air movement Cardiovascular: Regular rate, No murmurs Abdomen: Bowel Sounds Present, Soft, Non Tender Extremities: No edema, Capillary Refill Less than 3 Seconds Skin: No rashes, No breakdown Musculoskeletal: No Tenderness to Palpation of Joints or Extremities Neurological: Cranial nerves II-XII grossly intact Psych/Mental Status: Normal Affect, Appropriate Vital Signs Temp Pulse Resp BP Pulse Ox 96.7 F L 71 18 119/66 94 12/02/17 14:52 12/02/17 14:52 12/02/17 14:52 12/02/17 14:52 12/02/17 14:52 Oxygen Flow Rate (L/min) 1 Oxygen Delivery Method Nasal Cannula Weight: 95.7 kg Body Mass Index (BMI) 34.0 Intake and Output for Last 24 Hours 11/30/17 12/01/17 12/02/17 23:59 23:59 23:59 Intake Total 120 / 120 Balance 120 / 120 Assessment/Plan All Active Problems (Last Reviewed 11/26/17 @ 01:32 by Mustapha Hess DO) PNA (pneumonia) (Acute) UTI (urinary tract infection) (Acute) Sepsis (Acute) HCAP (healthcare-associated pneumonia) (Acute) Apical mural thrombus (Acute) Sleep apnea (Acute) FALL on knees and elbow (Resolved) BILA KNEES LACERATION AND BLEEDING (Resolved) Fall (Acute) Left radial fracture (Acute) Knee laceration (Acute) Cellulitis (Acute) Acute on chronic kidney failure (Acute) Shock (Acute) Hyperkalemia (Acute) Leukocytosis (Acute) Hypotension (Acute) Left ventricular thrombosis (Acute) Left leg cellulitis (Acute) Unspecified open wound, left foot, initial encounter (Acute) Avulsion of skin of left hand (Resolved) Avulsion of skin of right forearm (Resolved) Avulsion of skin of right hand (Resolved) History of subdural hemorrhage (Resolved) Hypotension (Resolved) Rhinovirus (Resolved) Supratherapeutic INR (Resolved) 82 year old male with below past medical history hospitalized for sepsis secondary to E. Coli, Burkholderia Cepacia, HCAP, Urinary tract infection, complicated by apical thrombus, admitted to TCU with debility, here for rehabilitation, strengthening, prior to discharge home with spouse. * Debility - PT/OT. * Pain - Tylenol 1000MG Q8H PRN mild pain. * Bowel - Miralax 17GM daily, Senna/colace 1 tablet BID, Dulcolax 10MG daily PRN. * Pneumonia vaccination - Administer Prevnar 13 and/or Pneumovax 23 as necessary. * DVT prophylaxis - Not necessary, already on warfarin. * COPD - Duoneb 3ML Q6H, Albuterol 2.5MG Q6H PRN, Pulmicort 0.5MG BID. * Coronary Artery Disease - Coreg 3.125MG BID, Aspirin 81MG daily. * Atrial Fibrillation/Apical thrombus - Coreg 3.125MG BID, Multaq 400MG BID, Warfarin 3MG daily, follow INR. * Hypothyroidism - Levothyroxine 75MCG 6 days/week, 150MCG 1 day/week. * GERD - Pantoprazole 20MG BID, MOM 30ML daily PRN. * Skin irritation - Calmoseptine TID buttocks. * Nausea - Reglan 10MG QACHS, he is eating better, consider tapering down to avoid extrapyramidal symptoms. * Orthostatic hypotension - Midodrine 10MG TID. * Nutrition - David 1 packet BID. * Hypokalemia K-Dur 20MEQ BID. * Hyperlipidemia - Pravastatin 20MG QHS. * Depression - Venlafaxine XR 75MG daily.
[2017-12-02] MEDS: Midodrine HCl 5 MG Tablet 10 MG PO (21:52)
[2017-12-02] MEDS: Menthol/Lanolin/Calamine/Znox 113 GM Tube 1 APPLIC TOPICAL (21:53)
[2017-12-02] MEDS: Pravastatin 20 MG Tablet PO (21:53)
[2017-12-03] MEDS: 0.9% NaCl VAD Flush 10 ML IV ×4 (04:26→09:15)
[2017-12-03 04:58] LABS: International Normalized Ratio 3.3; Prothrombin Time (Protime)PT. 33.8 SECONDS (11.7-14.9)
[2017-12-03 05:16] LABS: Absolute Lymphocyte Count 2.72 X10^3/ul (0.83-4.51); Absolute Neutrophil Count 5.4 X10^3/uL (2.0-7.7); Basophil# 0.01 X10^3/uL; Basophil% 0.1 % (0-1); Eosinophil# 0.34 X10^3/uL; Eosinophils% 3.4 % (0-5); Hematocrit 29.9 % (40-54); Hemoglobin 9.9 g/dl (13.0-16.5); Lymphocyte # 2.72 X10^3/ul (4.0); Mean Corp Hgb Conc 33.1 g/gl (32-36); Mean Corpuscular Hgb 30.4 pg (27.0-32.0); Mean Corpuscular Volume 91.7 fL (80-94); Mean Platelet Vol. 10.5 fl (6.2-12.0); Monocyte# 1.55 X10^3/uL; Monocyte% 15.4 % (0-10); Neutrophil # 5.43 X10^3/uL (2.7-7.7); Neutrophil % 53.8 % (47-70); Platelet Count 198 K/mm3 (150-450); RBC Distribution Width CV 20.2 % (11.6-14.6); RBC Distribution Width SD 63.7 fl (35.1-43.9); Red Blood Count 3.26 M/mm3 (4.6-6.2); White Blood Count 10.1 K/mm3 (4.4-11.0)
[2017-12-03 05:18] LABS: Differential Indicated SCAN CRITERIA MET; POSITIVE COUNT NO; POSITIVE DIFFERENTIAL YES; POSITIVE MORPHOLOGY YES
[2017-12-03 05:42] LABS: Anion Gap 6 (5-15); BUN 59 mg/dL (7-18); BUN/Creat Ratio 42.4 RATIO (10-20); Calcium,Total 7.8 mg/dL (8.5-10.1); Chloride 109 mmol/L (98-107); Creatinine, Serum 1.39 mg/dL (0.70-1.30); EST Glomerular Filtration Rate 52 mL/min (>60); Est Glom Filt Rate - Afr Amer 63 mL/min (>60); Estimated Creatinine Clearance 38.25 ml/min; Glucose 85 mg/dL (74-106); Potassium 4.4 mmol/L (3.5-5.1); Sodium Level 143 mmol/L (136-145)
[2017-12-03 05:45] LABS: Anisocytosis 1+; Differential Comment SCAN; Hypochromasia 1+; Microcytosis 1+; Polychromasia 1+
[2017-12-03] MEDS: Levothyroxine 75 MCG Tablet PO (06:30)
[2017-12-03] MEDS: Carvedilol 3.125 MG TABLET PO ×2 (06:30→16:53)
[2017-12-03] MEDS: Venlafaxine XR 75 MG Capsule PO (06:30)
[2017-12-03] MEDS: Menthol/Lanolin/Calamine/Znox 113 GM Tube 1 APPLIC TOPICAL ×3 (06:30→21:01)
[2017-12-03] MEDS: Pantoprazole Sodium 20 MG Tablet PO ×2 (06:30→16:52)
[2017-12-03] MEDS: Metoclopramide 10 MG Tablet PO ×4 (06:30→20:59)
[2017-12-03] MEDS: Midodrine HCl 5 MG Tablet 10 MG PO ×3 (06:31→21:00)
[2017-12-03] MEDS: Nystatin Powder 15gm Bottle 1 APPLIC TOPICAL ×2 (06:31→21:01)
[2017-12-03 06:55] VITALS: PULSE 60; RESP 18; O2SAT 96
[2017-12-03] MEDS: Ipratropium/Albuterol Sulfate 3 ML AMPUL.NEB INHALATION ×2 (06:55→13:31)
[2017-12-03] MEDS: Budesonide Respules 0.5 MG/2 ML AMPUL.NEB. INHALATION (06:55)
[2017-12-03] MEDS: Aspirin 81 MG TAB.CHEW PO (08:51)
--- NOTE | 2017-12-03 08:59 | NURSING ---
Dr. Parker reviewed AM labs, decreased Coumadin dose to 2.5mg daily, pt updated.
--- NOTE | 2017-12-03 10:36 | PCM.PN.RX ---
<Gabriel Pagan Caleb - Last Filed: 12/03/17 10:36> Progress Note - Pharmacy Subjective: TCU Admission Objective: Allergies fexofenadine Adverse Reaction (Severe, Verified 11/05/17 13:24) Cough prednisone Adverse Reaction (Severe, Verified 11/05/17 13:24) Unknown oxycodone [From Percocet] Adverse Reaction (Unknown, Verified 11/05/17 13:24) Unknown amiodarone Adverse Reaction (Verified 11/05/17 13:24) affects his lungs/breathing azithromycin Adverse Reaction (Verified 11/05/17 13:24) Other PATIENT STATES HE LOST HIS HEARING AND HIS HAIR levofloxacin [From Levaquin] Adverse Reaction (Verified 11/05/17 13:24) Other linezolid [From Zyvox] Adverse Reaction (Verified 11/05/17 13:24) decreased platelets morphine Adverse Reaction (Verified 11/05/17 13:24) agitated tramadol Adverse Reaction (Verified 11/05/17 13:24) interferes with another medication he is on Current Medications Generic Name Dose Route Start Last Admin Trade Name Freq PRN Reason Stop Dose Admin Acetaminophen 1,000 mg 12/02/17 20:51 Tylenol PO Q8H PRN PRN MILD PAIN (1-3/10) Albuterol Sulfate 2.5 mg 12/02/17 15:09 Ventolin Aerosols INHALATION Q6H PRN PRN COUGH/SOB Albuterol/Ipratropium 3 ml 12/02/17 15:15 12/03/17 06:55 Duoneb INHALATION 3 ml Q6HWA.RT RADHA Administration Aspirin 81 mg 12/03/17 08:00 12/03/17 08:51 Aspirin, Baby PO 81 mg DAILY@0800 RADHA Administration Bisacodyl 10 mg 12/02/17 20:51 Dulcolax PO DAILY PRN Constipation Budesonide 0.5 mg 12/02/17 15:15 12/03/17 06:55 Pulmicort Aerosol INHALATION 0.5 mg BID.RT RADHA Administration Calamine/Phenol 1 applic 12/02/17 22:00 12/03/17 06:30 Calmoseptine Ointment TOPICAL 1 applicatio TID RADHA Administration Protocol Carvedilol 3.125 mg 12/02/17 18:00 06/20/18 06:30 Coreg PO 3.125 mg BID RADHA Administration Dronedarone 400 mg 12/02/17 18:00 12/03/17 06:30 Multaq PO 400 mg BID [facility] Administration Heparin Sodium (Beef Lung) 500 unit 12/02/17 18:06 Heparin 500 Unit/5 Ml (100/Ml) IV UD PRN HEPARIN FLUSH Levothyroxine Sodium 75 mcg 12/03/17 06:00 12/03/17 06:30 Synthroid PO 75 mcg MoTuWeThFrSa@0600 RADHA Administration Levothyroxine Sodium 150 mcg 12/07/17 06:00 Synthroid PO Patel@0600 RADHA Magnesium Hydroxide 30 ml 12/02/17 15:09 Milk Of Magnesia PO DAILY PRN PRN Constipation Metoclopramide HCl 10 mg 12/02/17 16:00 12/03/17 06:30 Reglan PO 10 mg ACHS [facility] Administration Midodrine 10 mg 12/02/17 22:00 12/03/17 06:31 Proamatine PO 10 mg TID [facility] Administration Nutritional Formula 1 packet 12/02/17 17:00 12/03/17 08:51 David - Mcnairy Flavor PO 1 packet BIDCM [facility] Administration Nystatin 1 applic 12/03/17 06:00 12/03/17 06:31 Mycostatin Powder TOPICAL 1 applicatio 0600,2200 [facility] Administration Protocol Pantoprazole Sodium 20 mg 12/02/17 18:00 12/03/17 06:30 Protonix PO 20 mg BID [facility] Administration Polyethylene Glycol 17 gm 12/03/17 06:00 12/03/17 06:30 Miralax PO Not Given DAILY [facility] Potassium Chloride 20 meq 12/02/17 17:00 12/03/17 08:51 K-Dur PO 20 meq BIDCM [facility] Administration Pravastatin Sodium 20 mg 12/02/17 22:00 12/02/17 21:53 Pravachol PO 20 mg QHS [facility] Administration Senna/Docusate Sodium 1 tablet 12/03/17 06:00 12/03/17 06:30 Senokot-S, Pinky-Colace PO Not Given BID [facility] Sodium Chloride 10 ml 12/02/17 18:06 12/03/17 09:15 IV 10 ml UD PRN Administration VAD FLUSH Venlafaxine HCl 75 mg 12/03/17 06:00 12/03/17 06:30 Effexor Xr PO 75 mg DAILY [facility] Administration Warfarin Sodium 2.5 mg 12/03/17 17:00 Coumadin (Pbkc) PO DAILY@1700 [facility] Problem List (Last Reviewed 11/26/17 @ 01:32 by Mustapha Hess DO) Sepsis (Acute) HCAP (healthcare-associated pneumonia) (Acute) Apical mural thrombus (Acute) Sleep apnea (Acute) Vital Signs Temp Pulse Resp BP Pulse Ox 96.7 F L 60 18 119/66 96 12/02/17 14:52 12/03/17 06:55 12/03/17 06:55 12/02/17 14:52 12/03/17 06:55 Oxygen Flow Rate (L/min) 1 Oxygen Delivery Method Nasal Cannula Weight: 95.7 kg Body Mass Index (BMI) 34.0 Sodium 143 mmol/L (136-145) 12/03/17 04:40 Potassium 4.4 mmol/L (3.5-5.1) 12/03/17 04:40 Chloride 109 mmol/L (98-107) H 12/03/17 04:40 Carbon Dioxide 28.0 mmol/L (21.0-32.0) 12/03/17 04:40 Anion Gap 6 (5-15) 12/03/17 04:40 BUN 59 mg/dL (7-18) H 12/03/17 04:40 Creatinine 1.39 mg/dL (0.70-1.30) H 12/03/17 04:40 Est GFR (MDRD) Af Amer 63 mL/min (>60) 12/03/17 04:40 Est GFR (MDRD) Non-Af 52 mL/min (>60) L 12/03/17 04:40 BUN/Creatinine Ratio 42.4 RATIO (10-20) H 12/03/17 04:40 Glucose 85 mg/dL (74-106) 12/03/17 04:40 Assessment/Plan: 1) Pain APAP for mild pain. Continue to monitor daily pain scores, prn medication use. 2) AFib/CAD/Apical Thrombus Dronedarone, carvedilol, ASA, warfarin, pravastatin. Continue to monitor PT/INR and adjust warfarin for goal INR, BP/HR, lipids, hepatic enzymes. 3) Pulm Budesonide aerosols, Duoneb aerosols scheduled, albuterols aerosols prn. Continue to monitor prn medication use, for shortness of breath. 4) Hypothyroidism Levothyroxine daily. Continue to monitor s/s hyper/hypothyroidism. 5) GI Metoclopramide, pantoprazole. Continue to monitor s/s GI distress. 6) Orthostatic Hypotension Midodrine scheduled. Continue to monitor BP, dizziness, s/s hypotension. 7) Derm Calmoseptine, nystatin topically. Continue to monitor clinically. 8) Nutrition KCL, David. Continue to monitor electrolytes. Psychotropic Medications: * 9) Depression Venlafaxine XR daily. * Patient is maintained on dronedarone daily. The concurrent use of dronedarone and venlafaxine is contraindicated due to QT prolongation. Duloxetine has no interaction with dronedarone, please consider switching. Unnecessary Medications: None Bowel Regimen: 10) Senna/s, PEG, prn bisacodyl, prn MgOH. Continue to monitor prn medication use, for constipation/diarrhea. Date of Note:: 12/03/17 - Provider Comments Provider responsibility: Provider responsible to enter orders to implement recommendations <Mikael Parker Chi - Last Filed: 12/03/17 16:15> Progress Note - Pharmacy Subjective: [] Objective: Allergies fexofenadine Adverse Reaction (Severe, Verified 11/05/17 13:24) Cough prednisone Adverse Reaction (Severe, Verified 11/05/17 13:24) Unknown oxycodone [From Percocet] Adverse Reaction (Unknown, Verified 11/05/17 13:24) Unknown amiodarone Adverse Reaction (Verified 11/05/17 13:24) affects his lungs/breathing azithromycin Adverse Reaction (Verified 11/05/17 13:24) Other PATIENT STATES HE LOST HIS HEARING AND HIS HAIR levofloxacin [From Levaquin] Adverse Reaction (Verified 11/05/17 13:24) Other linezolid [From Zyvox] Adverse Reaction (Verified 11/05/17 13:24) decreased platelets morphine Adverse Reaction (Verified 11/05/17 13:24) agitated tramadol Adverse Reaction (Verified 11/05/17 13:24) interferes with another medication he is on Current Medications Generic Name Dose Route Start Last Admin Trade Name Freq PRN Reason Stop Dose Admin Acetaminophen 1,000 mg 12/02/17 20:51 Tylenol PO Q8H PRN PRN MILD PAIN (1-3/10) Albuterol Sulfate 2.5 mg 12/02/17 15:09 Ventolin Aerosols INHALATION Q6H PRN PRN COUGH/SOB Albuterol/Ipratropium 3 ml 12/02/17 15:15 12/03/17 13:31 Duoneb INHALATION 3 ml Q6HWA.RT RADHA Administration Aspirin 81 mg 12/03/17 08:00 12/03/17 08:51 Aspirin, Baby PO 81 mg DAILY@0800 RADHA Administration Bisacodyl 10 mg 12/02/17 20:51 Dulcolax PO DAILY PRN Constipation Budesonide 0.5 mg 12/02/17 15:15 12/03/17 06:55 Pulmicort Aerosol INHALATION 0.5 mg BID.RT RADHA Administration Calamine/Phenol 1 applic 12/02/17 22:00 12/03/17 12:50 Calmoseptine Ointment TOPICAL 1 applicatio TID RADHA Administration Protocol Carvedilol 3.125 mg 12/02/17 18:00 12/03/17 06:30 Coreg PO 3.125 mg BID RADHA Administration Dronedarone 400 mg 12/02/17 18:00 12/03/17 06:30 Multaq PO 400 mg BID RADHA Administration Heparin Sodium (Beef Lung) 500 unit 12/02/17 18:06 Heparin 500 Unit/5 Ml (100/Ml) IV UD PRN HEPARIN FLUSH Levothyroxine Sodium 75 mcg 12/03/17 06:00 12/03/17 06:30 Synthroid PO 75 mcg MoTuWeThFrSa@0600 RADHA Administration Levothyroxine Sodium 150 mcg 12/07/17 06:00 Synthroid PO Patel@0600 RADHA Magnesium Hydroxide 30 ml 12/02/17 15:09 Milk Of Magnesia PO DAILY PRN PRN Constipation Metoclopramide HCl 10 mg 12/02/17 16:00 12/03/17 15:14 Reglan PO 10 mg ACHS RADHA Administration Midodrine 10 mg 12/02/17 22:00 12/03/17 12:49 Proamatine PO 10 mg TID RADHA Administration Nystatin 1 applic 12/03/17 06:00 12/03/17 06:31 Mycostatin Powder TOPICAL 1 applicatio 06,0 [facility] Administration Protocol Pantoprazole Sodium 20 mg 12/02/17 18:00 12/03/17 06:30 Protonix PO 20 mg BID RADHA Administration Polyethylene Glycol 17 gm 12/03/17 06:00 12/03/17 06:30 Miralax PO Not Given DAILY [facility] Potassium Chloride 20 meq 12/02/17 17:00 12/03/17 08:51 K-Dur PO 20 meq BIDCM RADHA Administration Pravastatin Sodium 20 mg 12/02/17 22:00 12/02/17 21:53 Pravachol PO 20 mg QHS [facility] Administration Senna/Docusate Sodium 1 tablet 12/03/17 06:00 12/03/17 06:30 Senokot-S, Pinky-Colace PO Not Given BID [facility] Sodium Chloride 10 ml 12/02/17 18:06 12/03/17 09:15 IV 10 ml UD PRN Administration VAD FLUSH Venlafaxine HCl 75 mg 12/03/17 06:00 12/03/17 06:30 Effexor Xr PO 75 mg DAILY RADHA Administration Warfarin Sodium 2.5 mg 12/03/17 17:00 Coumadin (Pbkc) PO DAILY@1700 [facility] Problem List (Last Reviewed 11/26/17 @ 01:32 by Mustapha Hess DO) Sepsis (Acute) HCAP (healthcare-associated pneumonia) (Acute) Apical mural thrombus (Acute) Sleep apnea (Acute) Vital Signs Temp Pulse Resp BP Pulse Ox 95.9 F L 55 L 18 104/64 97 12/03/17 15:45 12/03/17 15:45 12/03/17 15:45 12/03/17 15:45 12/03/17 15:45 Oxygen Flow Rate (L/min) 4 Oxygen Delivery Method Nasal Cannula Weight: 95.7 kg Body Mass Index (BMI) 34.0 Sodium 143 mmol/L (136-145) 12/03/17 04:40 Potassium 4.4 mmol/L (3.5-5.1) 12/03/17 04:40 Chloride 109 mmol/L (98-107) H 12/03/17 04:40 Carbon Dioxide 28.0 mmol/L (21.0-32.0) 12/03/17 04:40 Anion Gap 6 (5-15) 12/03/17 04:40 BUN 59 mg/dL (7-18) H 12/03/17 04:40 Creatinine 1.39 mg/dL (0.70-1.30) H 12/03/17 04:40 Est GFR (MDRD) Af Amer 63 mL/min (>60) 12/03/17 04:40 Est GFR (MDRD) Non-Af 52 mL/min (>60) L 12/03/17 04:40 BUN/Creatinine Ratio 42.4 RATIO (10-20) H 12/03/17 04:40 Glucose 85 mg/dL (74-106) 12/03/17 04:40 Assessment/Plan: Psychotropic Medications: Unnecessary Medications: Bowel Regimen: - Provider Comments Provider responsibility: Provider responsible to enter orders to implement recommendations Provider Comments to Recommendations by Pharmacy: Agree
--- NOTE | 2017-12-03 10:51 | PHA.CONS_ITS ---
<Gabriel Pagan Caleb - Last Filed: 12/03/17 10:36> Progress Note - Pharmacy Subjective: TCU Admission Objective: Allergies fexofenadine Adverse Reaction (Severe, Verified 11/05/17 13:24) Cough prednisone Adverse Reaction (Severe, Verified 11/05/17 13:24) Unknown oxycodone [From Percocet] Adverse Reaction (Unknown, Verified 11/05/17 13:24) Unknown amiodarone Adverse Reaction (Verified 11/05/17 13:24) affects his lungs/breathing azithromycin Adverse Reaction (Verified 11/05/17 13:24) Other PATIENT STATES HE LOST HIS HEARING AND HIS HAIR levofloxacin [From Levaquin] Adverse Reaction (Verified 11/05/17 13:24) Other linezolid [From Zyvox] Adverse Reaction (Verified 11/05/17 13:24) decreased platelets morphine Adverse Reaction (Verified 11/05/17 13:24) agitated tramadol Adverse Reaction (Verified 11/05/17 13:24) interferes with another medication he is on Current Medications Generic Name Dose Route Start Last Admin Trade Name Freq PRN Reason Stop Dose Admin Acetaminophen 1,000 mg 12/02/17 20:51 Tylenol PO Q8H PRN PRN MILD PAIN (1-3/10) Albuterol Sulfate 2.5 mg 12/02/17 15:09 Ventolin Aerosols INHALATION Q6H PRN PRN COUGH/SOB Albuterol/Ipratropium 3 ml 12/02/17 15:15 12/03/17 06:55 Duoneb INHALATION 3 ml Q6HWA.RT RADHA Administration Aspirin 81 mg 12/03/17 08:00 12/03/17 08:51 Aspirin, Baby PO 81 mg DAILY@0800 RADHA Administration Bisacodyl 10 mg 12/02/17 20:51 Dulcolax PO DAILY PRN Constipation Budesonide 0.5 mg 12/02/17 15:15 12/03/17 06:55 Pulmicort Aerosol INHALATION 0.5 mg BID.RT RADHA Administration Calamine/Phenol 1 applic 12/02/17 22:00 12/03/17 06:30 Calmoseptine Ointment TOPICAL 1 applicatio TID RADHA Administration Protocol Carvedilol 3.125 mg 12/02/17 18:00 06/20/18 06:30 Coreg PO 3.125 mg BID RADHA Administration Dronedarone 400 mg 12/02/17 18:00 12/03/17 06:30 Multaq PO 400 mg BID [facility] Administration Heparin Sodium (Beef Lung) 500 unit 12/02/17 18:06 Heparin 500 Unit/5 Ml (100/Ml) IV UD PRN HEPARIN FLUSH Levothyroxine Sodium 75 mcg 12/03/17 06:00 12/03/17 06:30 Synthroid PO 75 mcg MoTuWeThFrSa@0600 RADHA Administration Levothyroxine Sodium 150 mcg 12/07/17 06:00 Synthroid PO Patel@0600 RADHA Magnesium Hydroxide 30 ml 12/02/17 15:09 Milk Of Magnesia PO DAILY PRN PRN Constipation Metoclopramide HCl 10 mg 12/02/17 16:00 12/03/17 06:30 Reglan PO 10 mg ACHS [facility] Administration Midodrine 10 mg 12/02/17 22:00 12/03/17 06:31 Proamatine PO 10 mg TID [facility] Administration Nutritional Formula 1 packet 12/02/17 17:00 12/03/17 08:51 David - [place] Flavor PO 1 packet BIDCM [facility] Administration Nystatin 1 applic 12/03/17 06:00 12/03/17 06:31 Mycostatin Powder TOPICAL 1 applicatio 0600,2200 [facility] Administration Protocol Pantoprazole Sodium 20 mg 12/02/17 18:00 12/03/17 06:30 Protonix PO 20 mg BID [facility] Administration Polyethylene Glycol 17 gm 12/03/17 06:00 12/03/17 06:30 Miralax PO Not Given DAILY [facility] Potassium Chloride 20 meq 12/02/17 17:00 12/03/17 08:51 K-Dur PO 20 meq BIDCM [facility] Administration Pravastatin Sodium 20 mg 12/02/17 22:00 12/02/17 21:53 Pravachol PO 20 mg QHS [facility] Administration Senna/Docusate Sodium 1 tablet 12/03/17 06:00 12/03/17 06:30 Senokot-S, Pinky-Colace PO Not Given BID [facility] Sodium Chloride 10 ml 12/02/17 18:06 12/03/17 09:15 IV 10 ml UD PRN Administration VAD FLUSH Venlafaxine HCl 75 mg 12/03/17 06:00 12/03/17 06:30 Effexor Xr PO 75 mg DAILY [facility] Administration Warfarin Sodium 2.5 mg 12/03/17 17:00 Coumadin (Pbkc) PO DAILY@1700 [facility] Problem List (Last Reviewed 11/26/17 @ 01:32 by Mustapha Hess DO) Sepsis (Acute) HCAP (healthcare-associated pneumonia) (Acute) Apical mural thrombus (Acute) Sleep apnea (Acute) Vital Signs Temp Pulse Resp BP Pulse Ox 96.7 F L 60 18 119/66 96 12/02/17 14:52 12/03/17 06:55 12/03/17 06:55 12/02/17 14:52 12/03/17 06:55 Oxygen Flow Rate (L/min) 1 Oxygen Delivery Method Nasal Cannula Weight: 95.7 kg Body Mass Index (BMI) 34.0 Sodium 143 mmol/L (136-145) 12/03/17 04:40 Potassium 4.4 mmol/L (3.5-5.1) 12/03/17 04:40 Chloride 109 mmol/L (98-107) H 12/03/17 04:40 Carbon Dioxide 28.0 mmol/L (21.0-32.0) 12/03/17 04:40 Anion Gap 6 (5-15) 12/03/17 04:40 BUN 59 mg/dL (7-18) H 12/03/17 04:40 Creatinine 1.39 mg/dL (0.70-1.30) H 12/03/17 04:40 Est GFR (MDRD) Af Amer 63 mL/min (>60) 12/03/17 04:40 Est GFR (MDRD) Non-Af 52 mL/min (>60) L 12/03/17 04:40 BUN/Creatinine Ratio 42.4 RATIO (10-20) H 12/03/17 04:40 Glucose 85 mg/dL (74-106) 12/03/17 04:40 Assessment/Plan: 1) Pain APAP for mild pain. Continue to monitor daily pain scores, prn medication use. 2) AFib/CAD/Apical Thrombus Dronedarone, carvedilol, ASA, warfarin, pravastatin. Continue to monitor PT/ INR and adjust warfarin for goal INR, BP/HR, lipids, hepatic enzymes. 3) Pulm Budesonide aerosols, Duoneb aerosols scheduled, albuterols aerosols prn. Continue to monitor prn medication use, for shortness of breath. 4) Hypothyroidism Levothyroxine daily. Continue to monitor s/s hyper/hypothyroidism. 5) GI Metoclopramide, pantoprazole. Continue to monitor s/s GI distress. 6) Orthostatic Hypotension Midodrine scheduled. Continue to monitor BP, dizziness, s/s hypotension. 7) Derm Calmoseptine, nystatin topically. Continue to monitor clinically. 8) Nutrition KCL, David. Continue to monitor electrolytes. Psychotropic Medications: * 9) Depression Venlafaxine XR daily. * Patient is maintained on dronedarone daily. The concurrent use of dronedarone and venlafaxine is contraindicated due to QT prolongation. Duloxetine has no interaction with dronedarone, please consider switching. Unnecessary Medications: None Bowel Regimen: 10) Senna/s, PEG, prn bisacodyl, prn MgOH. Continue to monitor prn medication use, for constipation/diarrhea. Date of Note:: 12/03/17 - Provider Comments Provider responsibility: Provider responsible to enter orders to implement recommendations <Mikael Parker Chi - Last Filed: 12/03/17 16:15> Progress Note - Pharmacy Subjective: [] Objective: Allergies fexofenadine Adverse Reaction (Severe, Verified 11/05/17 13:24) Cough prednisone Adverse Reaction (Severe, Verified 11/05/17 13:24) Unknown oxycodone [From Percocet] Adverse Reaction (Unknown, Verified 11/05/17 13:24) Unknown amiodarone Adverse Reaction (Verified 11/05/17 13:24) affects his lungs/breathing azithromycin Adverse Reaction (Verified 11/05/17 13:24) Other PATIENT STATES HE LOST HIS HEARING AND HIS HAIR levofloxacin [From Levaquin] Adverse Reaction (Verified 11/05/17 13:24) Other linezolid [From Zyvox] Adverse Reaction (Verified 11/05/17 13:24) decreased platelets morphine Adverse Reaction (Verified 11/05/17 13:24) agitated tramadol Adverse Reaction (Verified 11/05/17 13:24) interferes with another medication he is on Current Medications Generic Name Dose Route Start Last Admin Trade Name Freq PRN Reason Stop Dose Admin Acetaminophen 1,000 mg 12/02/17 20:51 Tylenol PO Q8H PRN PRN MILD PAIN (1-3/10) Albuterol Sulfate 2.5 mg 12/02/17 15:09 Ventolin Aerosols INHALATION Q6H PRN PRN COUGH/SOB Albuterol/Ipratropium 3 ml 12/02/17 15:15 12/03/17 13:31 Duoneb INHALATION 3 ml Q6HWA.RT RADHA Administration Aspirin 81 mg 12/03/17 08:00 12/03/17 08:51 Aspirin, Baby PO 81 mg DAILY@0800 [facility] Administration Bisacodyl 10 mg 12/02/17 20:51 Dulcolax PO DAILY PRN Constipation Budesonide 0.5 mg 12/02/17 15:15 12/03/17 06:55 Pulmicort Aerosol INHALATION 0.5 mg BID.RT [facility] Administration Calamine/Phenol 1 applic 12/02/17 22:00 12/03/17 12:50 Calmoseptine Ointment TOPICAL 1 applicatio TID [facility] Administration Protocol Carvedilol 3.125 mg 12/02/17 18:00 12/03/17 06:30 Coreg PO 3.125 mg BID [facility] Administration Dronedarone 400 mg 12/02/17 18:00 12/03/17 06:30 Multaq PO 400 mg BID [facility] Administration Heparin Sodium (Beef Lung) 500 unit 12/02/17 18:06 Heparin 500 Unit/5 Ml (100/Ml) IV UD PRN HEPARIN FLUSH Levothyroxine Sodium 75 mcg 12/03/17 06:00 12/03/17 06:30 Synthroid PO 75 mcg MoTuWeThFrSa@0600 [facility] Administration Levothyroxine Sodium 150 mcg 12/07/17 06:00 Synthroid PO Patel@0600 [facility] Magnesium Hydroxide 30 ml 12/02/17 15:09 Milk Of Magnesia PO DAILY PRN PRN Constipation Metoclopramide HCl 10 mg 12/02/17 16:00 12/03/17 15:14 Reglan PO 10 mg ACHS [facility] Administration Midodrine 10 mg 12/02/17 22:00 12/03/17 12:49 Proamatine PO 10 mg TID [facility] Administration Nystatin 1 applic 12/03/17 06:00 12/03/17 06:31 Mycostatin Powder TOPICAL 1 applicatio 06,0 [facility] Administration Protocol Pantoprazole Sodium 20 mg 12/02/17 18:00 12/03/17 06:30 Protonix PO 20 mg BID [facility] Administration Polyethylene Glycol 17 gm 12/03/17 06:00 12/03/17 06:30 Miralax PO Not Given DAILY [facility] Potassium Chloride 20 meq 12/02/17 17:00 12/03/17 08:51 K-Dur PO 20 meq BIDCM [facility] Administration Pravastatin Sodium 20 mg 12/02/17 22:00 12/02/17 21:53 Pravachol PO 20 mg QHS [facility] Administration Senna/Docusate Sodium 1 tablet 12/03/17 06:00 12/03/17 06:30 Senokot-S, Pinky-Colace PO Not Given BID [facility] Sodium Chloride 10 ml 12/02/17 18:06 12/03/17 09:15 IV 10 ml UD PRN Administration VAD FLUSH Venlafaxine HCl 75 mg 12/03/17 06:00 12/03/17 06:30 Effexor Xr PO 75 mg DAILY [facility] Administration Warfarin Sodium 2.5 mg 12/03/17 17:00 Coumadin (Pbkc) PO DAILY@1700 [facility] Problem List (Last Reviewed 11/26/17 @ 01:32 by Mustapha Hess DO) Sepsis (Acute) HCAP (healthcare-associated pneumonia) (Acute) Apical mural thrombus (Acute) Sleep apnea (Acute) Vital Signs Temp Pulse Resp BP Pulse Ox 95.9 F L 55 L 18 104/64 97 12/03/17 15:45 12/03/17 15:45 12/03/17 15:45 12/03/17 15:45 12/03/17 15:45 Oxygen Flow Rate (L/min) 4 Oxygen Delivery Method Nasal Cannula Weight: 95.7 kg Body Mass Index (BMI) 34.0 Sodium 143 mmol/L (136-145) 12/03/17 04:40 Potassium 4.4 mmol/L (3.5-5.1) 12/03/17 04:40 Chloride 109 mmol/L (98-107) H 12/03/17 04:40 Carbon Dioxide 28.0 mmol/L (21.0-32.0) 12/03/17 04:40 Anion Gap 6 (5-15) 12/03/17 04:40 BUN 59 mg/dL (7-18) H 12/03/17 04:40 Creatinine 1.39 mg/dL (0.70-1.30) H 12/03/17 04:40 Est GFR (MDRD) Af Amer 63 mL/min (>60) 12/03/17 04:40 Est GFR (MDRD) Non-Af 52 mL/min (>60) L 12/03/17 04:40 BUN/Creatinine Ratio 42.4 RATIO (10-20) H 12/03/17 04:40 Glucose 85 mg/dL (74-106) 12/03/17 04:40 Assessment/Plan: Psychotropic Medications: Unnecessary Medications: Bowel Regimen: - Provider Comments Provider responsibility: Provider responsible to enter orders to implement recommendations Provider Comments to Recommendations by Pharmacy: Agree
--- NOTE | 2017-12-03 11:41 | NURSING ---
Urine culture reviewed with Russell France, coping machine operator, pt may be in modified contact precautions, large yellow C hung on door, 4 C's explained to pt, pt verbalized understanding.
[2017-12-03 13:31] VITALS: PULSE 59; RESP 18
[2017-12-03 15:45] VITALS: BP 104/64; PULSE 55; RESP 18; TEMP 35.5; O2SAT 97
--- NOTE | 2017-12-03 16:34 | NURSING ---
DR PATEL AWARE O LOW PULSE. OK TO GIVE COREG THIS EVENING.
--- NOTE | 2017-12-03 16:49 | CHAPLAIN ---
Type of Pastoral Visit ___ Initial Visit _x__ Follow-up Visit ___ On-call Visit ___ General Patient Visit ___ Spiritual Assessment ___ Family Conference ___ Bereavement ___ Rapid Response ___ Code Blue ___ Other (describe below) Pastoral Care Referral From _x__ Patient ___ Family ___ Nurse ___ Physician ___ Terrazzo Supervisor ___ Crusher Tender ___ Other (describe below) Sacrament/Intervention _x__ Active listening ___ Anointing ___ Tenriism ___ Bereavement ___ Communion ___ Wendy exploration ___ ___ Life review _x__ Prayer ___ Reconciliation ___ Sacrament of Sick ___ Supportive presence ___ Wedding ___ Other (describe below) Pastoral Comments
--- NOTE | 2017-12-03 16:50 | NURSING ---
r' resting in bed with heel protectors in place and o2 in place via nc.
--- NOTE | 2017-12-03 17:04 | NURSING ---
Black Oxide Coating Equipment Tender's recommendations reviewed with Dr. Parker N.O. received.
[2017-12-03] MEDS: Pravastatin 20 MG Tablet PO (20:59)
[2017-12-04] VITALS (7 sets, daily range): BP systolic 91–110; BP diastolic 51–61; PULSE 51–68; RESP 16–19; TEMP 36.1; O2SAT 93–95
[2017-12-04] MEDS: Midodrine HCl 5 MG Tablet 10 MG PO ×3 (05:34→20:49)
[2017-12-04] MEDS: Levothyroxine 75 MCG Tablet PO (05:35)
[2017-12-04] MEDS: Carvedilol 3.125 MG TABLET PO (05:35)
[2017-12-04] MEDS: Metoclopramide 10 MG Tablet PO ×4 (05:35→20:50)
[2017-12-04] MEDS: Venlafaxine XR 75 MG Capsule PO (05:35)
[2017-12-04] MEDS: Pantoprazole Sodium 20 MG Tablet PO ×2 (05:35→16:56)
[2017-12-04] MEDS: Menthol/Lanolin/Calamine/Znox 113 GM Tube 1 APPLIC TOPICAL ×3 (05:37→20:51)
[2017-12-04] MEDS: Nystatin Powder 15gm Bottle 1 APPLIC TOPICAL ×2 (05:37→20:50)
[2017-12-04] MEDS: 0.9% NaCl VAD Flush 10 ML IV ×2 (05:43→05:44)
[2017-12-04 06:10] LABS: Prothrombin Time (Protime)PT. 36.5 SECONDS (11.7-14.9)
[2017-12-04 06:20] LABS: International Normalized Ratio 3.6
[2017-12-04] MEDS: Budesonide Respules 0.5 MG/2 ML AMPUL.NEB. INHALATION (06:45)
[2017-12-04] MEDS: Ipratropium/Albuterol Sulfate 3 ML AMPUL.NEB INHALATION ×2 (06:45→12:48)
--- NOTE | 2017-12-04 06:58 | NURSING ---
Patient's INR is 3.6. Patient is on 2.[address] Parker new orders given.
[2017-12-04] MEDS: Aspirin 81 MG TAB.CHEW PO (07:59)
--- NOTE | 2017-12-04 09:27 | NURSING ---
pt up in wc and down in therapy room c/o dizziness. pt bp 85/56 and hr 68. pt did not order any breakfast this am and encouraged to drink more. lt upper arm weeping from third spacing. back to bed and dr. phillips texted for further orders.
[2017-12-04] MEDS: Acetaminophen 500 MG Tablet 1000 MG PO (12:19)
--- NOTE | 2017-12-04 15:12 | NURSING ---
JONATAN Adhikari had changed dressings today. Did not remove at this time.
[2017-12-04] MEDS: Senna/Docusate Sodium 1 Tablet PO (16:56)
--- NOTE | 2017-12-04 16:56 | CASEMGMT ---
Social Work Spoke with resident in room, staff reporting that resident has been feeling down and has not been doing well in therapy. Resident reporting to be having a bad day and to be disgusted with how things are going (resident pointed to heart). Resident reporting that heart has not been working well and that is why resident hasn't been able to do well and has had bad days. This social media content manager inquiring of resident goals. Resident reporting to want to get better and to want to keep working with therapy. Resident goals are to be able to get stronger and return home. This social media content manager voicing that team and resident will take one day at a time and see how things go. Resident voicing that this is a good plan. Resident thanked this social media content manager for conversation. Support given. Will continue to follow. Carlene FALCON, MIRROR MAKER
[2017-12-04] MEDS: Pravastatin 20 MG Tablet PO (20:49)
[2017-12-05] MEDS: Metoclopramide 10 MG Tablet PO ×4 (06:12→23:21)
[2017-12-05] MEDS: Menthol/Lanolin/Calamine/Znox 113 GM Tube 1 APPLIC TOPICAL ×3 (06:12→23:17)
[2017-12-05] MEDS: Nystatin Powder 15gm Bottle 1 APPLIC TOPICAL ×2 (06:12→23:17)
[2017-12-05] MEDS: Levothyroxine 75 MCG Tablet PO (06:12)
[2017-12-05] MEDS: Venlafaxine XR 75 MG Capsule PO (06:13)
[2017-12-05] MEDS: Pantoprazole Sodium 20 MG Tablet PO ×2 (06:13→18:12)
[2017-12-05] MEDS: Senna/Docusate Sodium 1 Tablet PO (06:13)
[2017-12-05] MEDS: Carvedilol 3.125 MG TABLET PO ×2 (06:13→18:11)
[2017-12-05] MEDS: Midodrine HCl 5 MG Tablet 10 MG PO ×3 (06:13→23:22)
[2017-12-05] MEDS: 0.9% NaCl VAD Flush 10 ML IV (06:15)
[2017-12-05 06:37] LABS: Prothrombin Time (Protime)PT. 39.5 SECONDS (11.7-14.9)
[2017-12-05 06:46] VITALS: PULSE 62; RESP 20; O2SAT 93
[2017-12-05] MEDS: Ipratropium/Albuterol Sulfate 3 ML AMPUL.NEB INHALATION ×2 (06:46→13:49)
[2017-12-05] MEDS: Budesonide Respules 0.5 MG/2 ML AMPUL.NEB. INHALATION (06:46)
--- NOTE | 2017-12-05 07:04 | NURSING ---
Patient's INR is 4.0. Patient is on 1 mg Coumadin daily. Orders given to hold Coumadin and continue Daily PT/INR.
[2017-12-05] MEDS: Aspirin 81 MG TAB.CHEW PO (09:36)
--- NOTE | 2017-12-05 11:53 | NURSING ---
Patient's requesting Dr. Davis come to hospital to see patient rather than Dr. Douglas. Message left for Dr. Davis's office to see if he would be willing to come to TCU to see patient.
[2017-12-05 13:50] VITALS: PULSE 69; RESP 18
[2017-12-05 16:00] VITALS: BP 112/66; PULSE 64; RESP 18; TEMP 36.6; O2SAT 97
--- NOTE | 2017-12-05 19:09 | NURSING ---
Dr. Davis in to see patient tonight.
[2017-12-05 20:04] VITALS: PULSE 65; RESP 18
[2017-12-05] MEDS: Pravastatin 20 MG Tablet PO (23:22)
[2017-12-06] MEDS: Pantoprazole Sodium 20 MG Tablet PO ×2 (06:12→17:04)
[2017-12-06] MEDS: Carvedilol 3.125 MG TABLET PO ×2 (06:12→17:04)
[2017-12-06] MEDS: Levothyroxine 75 MCG Tablet PO (06:12)
[2017-12-06] MEDS: Metoclopramide 10 MG Tablet PO ×4 (06:12→20:27)
[2017-12-06] MEDS: Senna/Docusate Sodium 1 Tablet PO (06:12)
[2017-12-06] MEDS: Venlafaxine XR 75 MG Capsule PO (06:12)
[2017-12-06] MEDS: Midodrine HCl 5 MG Tablet 10 MG PO ×3 (06:13→20:30)
[2017-12-06] MEDS: Nystatin Powder 15gm Bottle 1 APPLIC TOPICAL ×2 (06:13→20:26)
[2017-12-06] MEDS: Menthol/Lanolin/Calamine/Znox 113 GM Tube 1 APPLIC TOPICAL ×3 (06:14→20:26)
[2017-12-06 06:41] LABS: International Normalized Ratio 3.2; Prothrombin Time (Protime)PT. 33.1 SECONDS (11.7-14.9)
[2017-12-06 07:00] VITALS: PULSE 62; RESP 18; O2SAT 95
[2017-12-06] MEDS: Ipratropium/Albuterol Sulfate 3 ML AMPUL.NEB INHALATION ×2 (07:00→19:43)
[2017-12-06] MEDS: Budesonide Respules 0.5 MG/2 ML AMPUL.NEB. INHALATION ×2 (07:00→19:43)
[2017-12-06] MEDS: Aspirin 81 MG TAB.CHEW PO (08:35)
--- NOTE | 2017-12-06 11:57 | NURSING ---
DR PATEL REVIEWED INR 3.2, NO NEW ORDERS.
[2017-12-06 15:35] VITALS: BP 136/61; PULSE 67; RESP 18; TEMP 36.1; O2SAT 92
[2017-12-06 19:43] VITALS: PULSE 61; RESP 18; O2SAT 96
[2017-12-06] MEDS: Acetaminophen 500 MG Tablet 1000 MG PO (20:25)
[2017-12-06] MEDS: Pravastatin 20 MG Tablet PO (20:29)
--- NOTE | 2017-12-06 20:38 | NURSING ---
pt medicated for pain in his left thigh. pt angry yelling at nurse that he has had a patch for years on that thigh (none noted on his orders). notified jaja aguilar who will check with dr to see if pt can have a lidoderm patch for his arthritis pain tylenol given. body trimmer repositioned pt
--- NOTE | 2017-12-06 20:57 | NURSING ---
Pt requesting lidocaine patch for Lt thigh pain. Dr. Parker updated. Orders entered.
[2017-12-06] MEDS: Lidocaine 5% Patch 1 PATCH TOPICAL (21:41)
[2017-12-07] MEDS: 0.9% NaCl VAD Flush 10 ML IV ×4 (05:39→14:24)
[2017-12-07] MEDS: Pantoprazole Sodium 20 MG Tablet PO ×2 (05:40→18:15)
[2017-12-07] MEDS: Senna/Docusate Sodium 1 Tablet PO (05:40)
[2017-12-07] MEDS: Levothyroxine 150 MCG Tablet PO (05:40)
[2017-12-07] MEDS: Midodrine HCl 5 MG Tablet 10 MG PO ×3 (05:40→21:22)
[2017-12-07] MEDS: Venlafaxine XR 75 MG Capsule PO (05:40)
[2017-12-07] MEDS: Carvedilol 3.125 MG TABLET PO ×2 (05:40→18:15)
[2017-12-07] MEDS: Metoclopramide 10 MG Tablet PO ×4 (05:40→21:21)
[2017-12-07] MEDS: Menthol/Lanolin/Calamine/Znox 113 GM Tube 1 APPLIC TOPICAL ×3 (05:41→21:26)
[2017-12-07] MEDS: Nystatin Powder 15gm Bottle 1 APPLIC TOPICAL ×2 (05:41→21:26)
[2017-12-07 06:47] LABS: International Normalized Ratio 2.5; Prothrombin Time (Protime)PT. 27.3 SECONDS (11.7-14.9)
[2017-12-07] MEDS: Ipratropium/Albuterol Sulfate 3 ML AMPUL.NEB INHALATION ×3 (07:20→19:58)
[2017-12-07] MEDS: Budesonide Respules 0.5 MG/2 ML AMPUL.NEB. INHALATION ×2 (07:30→20:01)
[2017-12-07] MEDS: Aspirin 81 MG TAB.CHEW PO (08:53)
[2017-12-07] MEDS: Acetaminophen 500 MG Tablet 1000 MG PO (08:57)
[2017-12-07 12:00] VITALS: PULSE 64; O2SAT 95
--- NOTE | 2017-12-07 14:25 | NURSING ---
Addendum entered by Zoe Ahuja 12/07/17 16:07: Dr Parker returned call. aware of pt not eating & LT thigh pain & no c/o since this AM. Dr Parker states that if no improvement by [facility] then hospice would be appropriate, this will be discussed in team meeting with and PT. Original Note: pt c/o this am regarding lt inner thigh pain, area without redness or edema. pain with palpation. Pain med given, pt has slept most of day refusing to eat meals. states i will eat when I am hungry. RT chest port flushed, good blood return. Resting in bed, awakens easily with verbal stimuli. Answers questions approp. Denies pain at this time. will continure to monitor. call light in reach.
[2017-12-07 15:50] VITALS: BP 129/66; PULSE 63; RESP 18; TEMP 36; O2SAT 99
[2017-12-07 19:58] VITALS: PULSE 65; RESP 18
[2017-12-07] MEDS: Pravastatin 20 MG Tablet PO (21:21)
--- NOTE | 2017-12-07 21:50 | NURSING ---
This nurse in to give HS meds. Pt very quiet when speaking and answering questions. Pt has a very flat affect. When asking if there was anything this nurse could do for him pt starring at TV and stated Im just fine. Mikhail wraps adjusted on arms, MIKHAIL wraps removed from legs and heel boots applied. O2 on and call light in reach.
[2017-12-08] MEDS: Pantoprazole Sodium 20 MG Tablet PO ×2 (06:51→17:22)
[2017-12-08] MEDS: Carvedilol 3.125 MG TABLET PO ×2 (06:51→17:22)
[2017-12-08] MEDS: Menthol/Lanolin/Calamine/Znox 113 GM Tube 1 APPLIC TOPICAL ×3 (06:51→22:22)
[2017-12-08] MEDS: Levothyroxine 75 MCG Tablet PO (06:51)
[2017-12-08] MEDS: Metoclopramide 10 MG Tablet PO ×4 (06:51→22:18)
[2017-12-08] MEDS: Midodrine HCl 5 MG Tablet 10 MG PO ×3 (06:51→22:19)
[2017-12-08] MEDS: Venlafaxine XR 75 MG Capsule PO (06:51)
[2017-12-08] MEDS: Nystatin Powder 15gm Bottle 1 APPLIC TOPICAL ×2 (06:52→22:25)
[2017-12-08 07:06] LABS: International Normalized Ratio 2.4; Prothrombin Time (Protime)PT. 26.5 SECONDS (11.7-14.9)
[2017-12-08 07:24] VITALS: PULSE 60; RESP 18; O2SAT 97
[2017-12-08] MEDS: Budesonide Respules 0.5 MG/2 ML AMPUL.NEB. INHALATION ×2 (07:24→18:42)
[2017-12-08] MEDS: Ipratropium/Albuterol Sulfate 3 ML AMPUL.NEB INHALATION ×3 (07:24→18:42)
[2017-12-08] MEDS: Aspirin 81 MG TAB.CHEW PO (08:53)
[2017-12-08] MEDS: Lidocaine 5% Patch 1 PATCH TOPICAL (09:17)
[2017-12-08 13:33] VITALS: PULSE 66; RESP 20
--- NOTE | 2017-12-08 15:43 | NURSING ---
wound photo: right knee
--- NOTE | 2017-12-08 15:43 | NURSING ---
wound photo: left knee
[2017-12-08 15:49] VITALS: BP 122/68; PULSE 70; RESP 18; TEMP 35.8; O2SAT 95
[2017-12-08 18:42] VITALS: PULSE 69; RESP 18
[2017-12-08] MEDS: Pravastatin 20 MG Tablet PO (22:19)
[2017-12-08] MEDS: 0.9% NaCl VAD Flush 10 ML IV (22:19)
[2017-12-09] MEDS: Midodrine HCl 5 MG Tablet 10 MG PO ×3 (05:22→21:15)
[2017-12-09] MEDS: Levothyroxine 75 MCG Tablet PO (05:22)
[2017-12-09] MEDS: Pantoprazole Sodium 20 MG Tablet PO ×2 (05:22→17:30)
[2017-12-09] MEDS: Carvedilol 3.125 MG TABLET PO ×2 (05:22→17:30)
[2017-12-09] MEDS: Lidocaine 5% Patch 1 PATCH TOPICAL (05:22)
[2017-12-09] MEDS: Venlafaxine XR 75 MG Capsule PO (05:22)
[2017-12-09] MEDS: Nystatin Powder 15gm Bottle 1 APPLIC TOPICAL ×2 (05:23→21:16)
[2017-12-09] MEDS: Menthol/Lanolin/Calamine/Znox 113 GM Tube 1 APPLIC TOPICAL ×3 (05:24→21:17)
[2017-12-09] MEDS: Metoclopramide 10 MG Tablet PO ×4 (06:40→21:15)
[2017-12-09 06:46] VITALS: PULSE 69; RESP 16; O2SAT 96
[2017-12-09] MEDS: Budesonide Respules 0.5 MG/2 ML AMPUL.NEB. INHALATION ×2 (06:46→19:01)
[2017-12-09] MEDS: Ipratropium/Albuterol Sulfate 3 ML AMPUL.NEB INHALATION ×2 (06:46→19:01)
[2017-12-09] MEDS: Aspirin 81 MG TAB.CHEW PO (09:37)
[2017-12-09] MEDS: 0.9% NaCl VAD Flush 10 ML IV (14:37)
[2017-12-09 15:29] VITALS: BP 120/68; PULSE 60; RESP 18; TEMP 36.5; O2SAT 97
--- NOTE | 2017-12-09 16:30 | CHAPLAIN ---
Type of Pastoral Visit ___ Initial Visit _x__ Follow-up Visit ___ On-call Visit ___ General Patient Visit ___ Spiritual Assessment ___ Family Conference ___ Bereavement ___ Rapid Response ___ Code Blue ___ Other (describe below) Pastoral Care Referral From _x__ Patient ___ Family _x__ Nurse ___ Physician _x__ Superintendent Stevedoring ___ Bilingual Customer Service ___ Other (describe below) Sacrament/Intervention _x__ Active listening ___ Anointing ___ Moravian ___ Bereavement ___ Communion ___ Wendy exploration ___ ___ Life review _x__ Prayer ___ Reconciliation ___ Sacrament of Sick _x__ Supportive presence ___ Wedding ___ Other (describe below) Pastoral Comments patient describes himself as feeling sick and being down today; pt lists goal of going home, especially if 'my time is about done'; pt states that he will feel better at home; pt expresses thankfulness for great care but hopes that he can manage at home; meeting will be held tomorrow according to pt and SW about this prospect; pt expresses thankfulness for being able to talk about this situation and his goal; pt asks for prayer support
--- NOTE | 2017-12-09 16:48 | CASEMGMT ---
Brief interview for mental status (BIMS) and resident mood interview (PHQ-9) completed on this day. BIMS score 15/15. PHQ-9 score 01/09
--- NOTE | 2017-12-09 16:49 | CASEMGMT ---
Social Work Nursing staff reporting that resident has been not himself. This psychosocial rehabilitation counselor speaking with resident in room. Resident reporting to be feeling down and to not be interested in therapy at this time. Resident did decline therapy on this day per resident and the therapy team. Resident reporting that main goal is to get home, even if resident is weak. Resident reporting to believe to be able to do better at home. Resident reporting to not want to in a facility. Resident unsure about hospice services at this time. Resident declined hospice services last week when Dr. Parker broached the topic. Resident reporting to be open to looking into what it would take for resident to be able to return home. Resident plan of care meeting scheduled for tomorrow. Resident open to this psychosocial rehabilitation counselor and resident, resident family and team discussing further tomorrow options for getting resident home and when this would be able to be set up. Resident thanking this psychosocial rehabilitation counselor and reporting to be looking forward to the meeting tomorrow. Resident exchanging some smiles and laughs with this psychosocial rehabilitation counselor during interaction. Support given. Nursing staff notified about conversation. Will continue to follow. Carlene FALCON, MOLECULAR BIOLOGIST
[2017-12-09 19:01] VITALS: PULSE 64; RESP 16
[2017-12-09] MEDS: Pravastatin 20 MG Tablet PO (21:15)
[2017-12-09 22:32] VITALS: BP 123/68; PULSE 69; RESP 18; TEMP 36.6; O2SAT 96
[2017-12-10] MEDS: Menthol/Lanolin/Calamine/Znox 113 GM Tube 1 APPLIC TOPICAL ×2 (05:07→21:07)
[2017-12-10] MEDS: Nystatin Powder 15gm Bottle 1 APPLIC TOPICAL ×2 (05:09→21:06)
[2017-12-10] MEDS: Midodrine HCl 5 MG Tablet 10 MG PO ×3 (05:10→21:03)
[2017-12-10] MEDS: Carvedilol 3.125 MG TABLET PO ×2 (05:10→16:59)
[2017-12-10] MEDS: Venlafaxine XR 75 MG Capsule PO (05:10)
[2017-12-10] MEDS: Pantoprazole Sodium 20 MG Tablet PO ×2 (05:10→17:00)
[2017-12-10] MEDS: Levothyroxine 75 MCG Tablet PO (05:10)
[2017-12-10] MEDS: Lidocaine 5% Patch 1 PATCH TOPICAL (05:11)
[2017-12-10 05:31] LABS: Absolute Lymphocyte Count 2.18 X10^3/ul (0.83-4.51); Absolute Neutrophil Count 3.5 X10^3/uL (2.0-7.7); Basophil# 0.01 X10^3/uL; Basophil% 0.1 % (0-1); Eosinophil# 0.63 X10^3/uL; Eosinophils% 8.3 % (0-5); Hematocrit 29.7 % (40-54); Hemoglobin 9.4 g/dl (13.0-16.5); Lymphocyte # 2.18 X10^3/ul (4.0); Lymphocyte % 28.8 % (19-41); Mean Corp Hgb Conc 31.6 g/gl (32-36); Mean Corpuscular Hgb 29.7 pg (27.0-32.0); Mean Platelet Vol. 9.9 fl (6.2-12.0); Monocyte# 1.19 X10^3/uL; Monocyte% 15.7 % (0-10); Neutrophil # 3.54 X10^3/uL (2.7-7.7); Platelet Count 224 K/mm3 (150-450); RBC Distribution Width CV 20.1 % (11.6-14.6); RBC Distribution Width SD 67.2 fl (35.1-43.9); Red Blood Count 3.16 M/mm3 (4.6-6.2); White Blood Count 7.6 K/mm3 (4.4-11.0)
[2017-12-10 05:35] VITALS: BP 123/64; PULSE 62
[2017-12-10 05:48] LABS: Differential Comment SCANNED; Differential Indicated SCAN CRITERIA MET; POSITIVE COUNT NO; POSITIVE DIFFERENTIAL NO; POSITIVE MORPHOLOGY YES; Target Cells RARE
[2017-12-10 05:49] LABS: Anisocytosis 2+; Microcytosis 1+
[2017-12-10 05:55] LABS: Anion Gap 7 (5-15); BUN 24 mg/dL (7-18); BUN/Creat Ratio 16.8 RATIO (10-20); Calcium,Total 7.4 mg/dL (8.5-10.1); Chloride 109 mmol/L (98-107); Creatinine, Serum 1.43 mg/dL (0.70-1.30); EST Glomerular Filtration Rate 51 mL/min (>60); Est Glom Filt Rate - Afr Amer 61 mL/min (>60); Estimated Creatinine Clearance 37.18 ml/min; Glucose 79 mg/dL (74-106); Potassium 4.5 mmol/L (3.5-5.1); Sodium Level 141 mmol/L (136-145)
[2017-12-10] MEDS: Metoclopramide 10 MG Tablet PO ×4 (08:09→21:03)
[2017-12-10] MEDS: Aspirin 81 MG TAB.CHEW PO (08:09)
[2017-12-10 08:31] VITALS: PULSE 60; RESP 18; O2SAT 98
[2017-12-10] MEDS: Ipratropium/Albuterol Sulfate 3 ML AMPUL.NEB INHALATION ×3 (08:31→18:55)
[2017-12-10] MEDS: Budesonide Respules 0.5 MG/2 ML AMPUL.NEB. INHALATION ×2 (08:31→18:55)
--- NOTE | 2017-12-10 11:03 | CASEMGMT ---
Plan of care meeting held. Resident present as well as resident spouse. No discharge date set at this time. Resident wanting to discharge home with spouse, resident spouse reporting to not be able to help resident within the home. Resident aware that resident will need to be able to do own transfers before resident is able to discharge home. Topic of hospice was also broached as Dr. Parker is reporting that resident would qualify. Dr. Parker also spoke with resident and resident spouse about hospice. Resident and resident spouse declining for this social work msw to make referral to hospice at this time. Resident and resident spouse to let this social work msw know if a referral to hospice is something they change their mind about. Resident wanting to continue with further care and treatment on the Transitional Care Unit. Support given. Will continue to follow. Carlene FALCON, DRY CLEANING MANAGER
[2017-12-10] MEDS: 0.9% NaCl VAD Flush 10 ML IV (13:19)
[2017-12-10 14:27] VITALS: PULSE 61; RESP 18
[2017-12-10 15:48] VITALS: BP 133/73; PULSE 60; RESP 18; TEMP 36.7; O2SAT 99
[2017-12-10 18:50] VITALS: PULSE 74; RESP 18; O2SAT 96
[2017-12-10] MEDS: Pravastatin 20 MG Tablet PO (21:03)
[2017-12-10] MEDS: Mirtazapine 15 MG Tablet 7.5 MG PO (21:05)
[2017-12-11] MEDS: Nystatin Powder 15gm Bottle 1 APPLIC TOPICAL ×2 (06:45→21:45)
[2017-12-11] MEDS: Lidocaine 5% Patch 1 PATCH TOPICAL (06:47)
[2017-12-11] MEDS: Midodrine HCl 5 MG Tablet 10 MG PO ×3 (06:47→21:47)
[2017-12-11] MEDS: Pantoprazole Sodium 20 MG Tablet PO ×2 (06:47→17:00)
[2017-12-11] MEDS: Venlafaxine XR 75 MG Capsule PO (06:47)
[2017-12-11] MEDS: Metoclopramide 10 MG Tablet PO ×4 (06:47→21:48)
[2017-12-11] MEDS: Carvedilol 3.125 MG TABLET PO ×2 (06:47→17:00)
[2017-12-11] MEDS: Levothyroxine 75 MCG Tablet PO (06:48)
[2017-12-11] MEDS: Menthol/Lanolin/Calamine/Znox 113 GM Tube 1 APPLIC TOPICAL ×2 (06:54→21:44)
[2017-12-11 06:55] VITALS: BP 122/66; PULSE 73
[2017-12-11 07:00] VITALS: PULSE 78; RESP 16; O2SAT 95
[2017-12-11] MEDS: Ipratropium/Albuterol Sulfate 3 ML AMPUL.NEB INHALATION ×2 (07:00→18:55)
[2017-12-11 07:15] LABS: Prothrombin Time (Protime)PT. 35.6 SECONDS (11.7-14.9)
[2017-12-11 07:21] LABS: International Normalized Ratio 3.5
[2017-12-11] MEDS: 0.9% NaCl VAD Flush 10 ML IV (07:45)
[2017-12-11] MEDS: Aspirin 81 MG TAB.CHEW PO (08:54)
--- NOTE | 2017-12-11 11:58 | CASEMGMT ---
Social Work Voicemail received from Theron at [facility]. Theron voicing that resident is connected with [facility]. Telephone call back to Theron to clarify services that resident is connected with, voicemail left for Theron. Will continue to follow. Carlene FALCON, MANUFACTURING BUSINESS ANALYST
--- NOTE | 2017-12-11 12:01 | NURSING ---
INR 3.8 today, dr phillips reviewed labs, new order, coumadin 1.5mg ordered
[2017-12-11] MEDS: Acetaminophen 500 MG Tablet 1000 MG PO ×2 (12:38→20:56)
[2017-12-11 15:23] VITALS: BP 128/77; PULSE 70; RESP 18; TEMP 36.3; O2SAT 96
[2017-12-11 18:55] VITALS: PULSE 68; RESP 16
[2017-12-11] MEDS: Budesonide Respules 0.5 MG/2 ML AMPUL.NEB. INHALATION (18:55)
[2017-12-11] MEDS: Pravastatin 20 MG Tablet PO (21:46)
[2017-12-11] MEDS: Mirtazapine 15 MG Tablet 7.5 MG PO (21:49)
[2017-12-11 21:55] VITALS: PULSE 68; RESP 16; O2SAT 96
[2017-12-12] MEDS: Lidocaine 5% Patch 1 PATCH TOPICAL (06:22)
[2017-12-12] MEDS: Acetaminophen 500 MG Tablet 1000 MG PO (06:22)
[2017-12-12] MEDS: Menthol/Lanolin/Calamine/Znox 113 GM Tube 1 APPLIC TOPICAL ×2 (06:23→22:23)
[2017-12-12] MEDS: Levothyroxine 75 MCG Tablet PO (06:23)
[2017-12-12] MEDS: Venlafaxine XR 75 MG Capsule PO (06:23)
[2017-12-12] MEDS: Metoclopramide 10 MG Tablet PO ×4 (06:23→22:22)
[2017-12-12] MEDS: Pantoprazole Sodium 20 MG Tablet PO ×2 (06:23→16:31)
[2017-12-12] MEDS: Carvedilol 3.125 MG TABLET PO ×2 (06:23→16:32)
[2017-12-12] MEDS: Midodrine HCl 5 MG Tablet 10 MG PO ×3 (06:24→22:22)
[2017-12-12] MEDS: Nystatin Powder 15gm Bottle 1 APPLIC TOPICAL ×2 (06:24→22:23)
[2017-12-12 06:47] VITALS: PULSE 69; RESP 16; O2SAT 97
[2017-12-12] MEDS: Ipratropium/Albuterol Sulfate 3 ML AMPUL.NEB INHALATION ×2 (06:47→19:17)
[2017-12-12] MEDS: Budesonide Respules 0.5 MG/2 ML AMPUL.NEB. INHALATION ×2 (06:47→19:18)
[2017-12-12] MEDS: Aspirin 81 MG TAB.CHEW PO (09:01)
[2017-12-12 15:53] VITALS: BP 111/62; PULSE 67; RESP 18; TEMP 35.7; O2SAT 98
[2017-12-12] MEDS: Senna/Docusate Sodium 1 Tablet PO (16:31)
[2017-12-12 19:18] VITALS: PULSE 74; RESP 18
[2017-12-12] MEDS: Mirtazapine 15 MG Tablet 7.5 MG PO (22:21)
[2017-12-12] MEDS: Pravastatin 20 MG Tablet PO (22:21)
[2017-12-13] MEDS: Senna/Docusate Sodium 1 Tablet PO ×2 (05:55→18:09)
[2017-12-13] MEDS: Midodrine HCl 5 MG Tablet 10 MG PO ×3 (05:55→21:06)
[2017-12-13] MEDS: Metoclopramide 10 MG Tablet PO ×4 (05:55→21:06)
[2017-12-13] MEDS: Carvedilol 3.125 MG TABLET PO ×2 (05:55→18:07)
[2017-12-13] MEDS: Levothyroxine 75 MCG Tablet PO (05:56)
[2017-12-13] MEDS: Venlafaxine XR 75 MG Capsule PO (05:56)
[2017-12-13] MEDS: Menthol/Lanolin/Calamine/Znox 113 GM Tube 1 APPLIC TOPICAL ×2 (05:56→21:06)
[2017-12-13] MEDS: Nystatin Powder 15gm Bottle 1 APPLIC TOPICAL ×2 (05:56→21:05)
[2017-12-13] MEDS: Pantoprazole Sodium 20 MG Tablet PO ×2 (05:56→18:09)
[2017-12-13] MEDS: Lidocaine 5% Patch 1 PATCH TOPICAL (05:56)
[2017-12-13 07:51] VITALS: PULSE 62; RESP 18; O2SAT 92
[2017-12-13] MEDS: Ipratropium/Albuterol Sulfate 3 ML AMPUL.NEB INHALATION ×3 (07:51→23:27)
[2017-12-13] MEDS: Budesonide Respules 0.5 MG/2 ML AMPUL.NEB. INHALATION (07:51)
[2017-12-13] MEDS: Aspirin 81 MG TAB.CHEW PO (11:04)
[2017-12-13] MEDS: Acetaminophen 500 MG Tablet 1000 MG PO (11:14)
[2017-12-13 13:33] VITALS: PULSE 61; RESP 18
[2017-12-13 15:46] VITALS: BP 102/58; PULSE 65; RESP 18; TEMP 36; O2SAT 96
[2017-12-13] MEDS: Mirtazapine 15 MG Tablet 7.5 MG PO (21:06)
[2017-12-13] MEDS: Pravastatin 20 MG Tablet PO (21:06)
[2017-12-13 23:27] VITALS: PULSE 72; RESP 18
--- NOTE | 2017-12-14 00:31 | NURSING ---
ANCHORER attempted to turn pt but pt refused to turn. Educated pt on importance of turning so that he will not get a bed sore. Will continue to monitor.
[2017-12-14 06:43] VITALS: BP 100/54; PULSE 80
[2017-12-14] MEDS: Menthol/Lanolin/Calamine/Znox 113 GM Tube 1 APPLIC TOPICAL ×2 (06:44→21:05)
[2017-12-14] MEDS: Lidocaine 5% Patch 1 PATCH TOPICAL (06:45)
[2017-12-14] MEDS: Venlafaxine XR 75 MG Capsule PO (06:45)
[2017-12-14] MEDS: Carvedilol 3.125 MG TABLET PO ×2 (06:45→17:24)
[2017-12-14] MEDS: Nystatin Powder 15gm Bottle 1 APPLIC TOPICAL ×2 (06:46→21:05)
[2017-12-14] MEDS: Levothyroxine 150 MCG Tablet PO (06:47)
[2017-12-14] MEDS: Midodrine HCl 5 MG Tablet 10 MG PO ×3 (06:47→21:04)
[2017-12-14] MEDS: Metoclopramide 10 MG Tablet PO ×4 (06:48→21:03)
[2017-12-14] MEDS: Pantoprazole Sodium 20 MG Tablet PO ×2 (06:48→17:24)
[2017-12-14 07:33] VITALS: PULSE 77; RESP 18; O2SAT 97
[2017-12-14] MEDS: Budesonide Respules 0.5 MG/2 ML AMPUL.NEB. INHALATION ×2 (07:33→19:48)
[2017-12-14] MEDS: Ipratropium/Albuterol Sulfate 3 ML AMPUL.NEB INHALATION ×3 (07:33→19:45)
[2017-12-14] MEDS: Aspirin 81 MG TAB.CHEW PO (09:17)
[2017-12-14 13:37] VITALS: PULSE 64; RESP 18
[2017-12-14 15:27] VITALS: BP 114/64; PULSE 71; RESP 18; TEMP 36.9; O2SAT 97
--- NOTE | 2017-12-14 15:50 | NURSING ---
Pt has increased edema to BLLE and BLUE. Lungs with rhonchi throughout with moist, productive cough. Dr. Parker made aware, NO for lasix 20mg PO daily, and give x1 dose of lasix 20mg PO now.
[2017-12-14] MEDS: Senna/Docusate Sodium 1 Tablet PO (17:24)
[2017-12-14] MEDS: Furosemide 20 MG Tablet PO (17:25)
[2017-12-14 19:45] VITALS: PULSE 65; RESP 18
[2017-12-14] MEDS: Pravastatin 20 MG Tablet PO (21:03)
[2017-12-14] MEDS: Mirtazapine 15 MG Tablet 7.5 MG PO (21:03)
[2017-12-15] MEDS: Venlafaxine XR 75 MG Capsule PO (04:46)
[2017-12-15] MEDS: Midodrine HCl 5 MG Tablet 10 MG PO ×3 (04:47→21:09)
[2017-12-15] MEDS: Furosemide 20 MG Tablet PO (04:47)
[2017-12-15] MEDS: Levothyroxine 75 MCG Tablet PO (04:47)
[2017-12-15] MEDS: Pantoprazole Sodium 20 MG Tablet PO ×2 (04:47→16:54)
[2017-12-15] MEDS: Lidocaine 5% Patch 1 PATCH TOPICAL (04:48)
[2017-12-15] MEDS: Carvedilol 3.125 MG TABLET PO ×2 (04:48→16:53)
[2017-12-15 04:50] VITALS: BP 114/68; PULSE 81
[2017-12-15] MEDS: Menthol/Lanolin/Calamine/Znox 113 GM Tube 1 APPLIC TOPICAL ×2 (04:53→21:11)
[2017-12-15] MEDS: Nystatin Powder 15gm Bottle 1 APPLIC TOPICAL ×2 (04:53→21:09)
[2017-12-15 05:57] LABS: Prothrombin Time (Protime)PT. 38.8 SECONDS (11.7-14.9)
[2017-12-15 06:11] LABS: International Normalized Ratio 3.9
[2017-12-15 06:48] VITALS: PULSE 70; RESP 16; O2SAT 97
[2017-12-15] MEDS: Ipratropium/Albuterol Sulfate 3 ML AMPUL.NEB INHALATION ×3 (06:48→19:01)
[2017-12-15] MEDS: Budesonide Respules 0.5 MG/2 ML AMPUL.NEB. INHALATION ×2 (06:48→19:02)
[2017-12-15] MEDS: Metoclopramide 10 MG Tablet PO ×4 (08:17→21:09)
[2017-12-15] MEDS: Aspirin 81 MG TAB.CHEW PO (08:17)
[2017-12-15 09:00] VITALS: BP 93/58; PULSE 74; TEMP 36.4
--- NOTE | 2017-12-15 09:00 | NURSING ---
Addendum entered by Zoe Ahuja 12/15/17 11:11: Dr Parker aware, new order to DC lasix that was started yesterday. Original Note: pt c/o lightheadedness right when starting eating brkfst. pt reports his head got real hot & things started spinning, 3 times about 1 hour ago. Bp 93/[address] update [address] Parker.
--- NOTE | 2017-12-15 09:02 | MDS.RN ---
Information for the mds was obtained from review of the clinical record, interview of resident, staff, and direct observation of resident's care.
--- NOTE | 2017-12-15 11:56 | NURSING ---
Addendum entered by Ning Sorenson 12/15/17 13:04: ALSO, R' MENTIONED HE TAKES ALDACTONE AT HOME. DR. PATEL WAS NOTIFIED. NO N.O. AT THIS TIME. R' AWARE THAT LASIX WAS D/C'D D/T DIZZINESS. STILL C/O SLIGHT DIZZINESS THIS AFTERNOON. RESTING IN CHAIR WITH LEGS ELEVATED. OFFERED TO ORDER SOMETHING FOR LUNCH, BUT REFUSED AT THIS TIME. HE DID APOLOGIZE FOR YELLING EARLIER. Original Note: THIS NURSE CHANGING R' DRESSINGS AND ASKED IF HE WAS GOING TO EAT LUNCH. R' IMMEDIATELY STARTED YELLING, REFUSING TO EAT. CALLED SOON AFTER AND WONDERED IF R' WAS EATING TODAY. EXPLAINED TO HER THAT HE STILL IS REFUSING AND HOW HE GETS ANGERED EASILY IF ENCOURAGED TO DO SO. DR PATEL AWARE OF R' REFUSING TO EAT/POOR ATTITUDE.
[2017-12-15 12:40] VITALS: PULSE 69; RESP 16
[2017-12-15 16:00] VITALS: BP 106/68; PULSE 74; RESP 20; TEMP 36.7; O2SAT 97
[2017-12-15] MEDS: Warfarin 0.5 MG Tablet PO (16:52)
[2017-12-15 19:01] VITALS: PULSE 68; RESP 17; O2SAT 95
[2017-12-15] MEDS: Pravastatin 20 MG Tablet PO (21:09)
[2017-12-15] MEDS: Mirtazapine 15 MG Tablet 7.5 MG PO (21:09)
[2017-12-16] MEDS: Venlafaxine XR 75 MG Capsule PO (06:17)
[2017-12-16] MEDS: Metoclopramide 10 MG Tablet PO ×4 (06:17→21:31)
[2017-12-16] MEDS: Lidocaine 5% Patch 1 PATCH TOPICAL (06:17)
[2017-12-16] MEDS: Carvedilol 3.125 MG TABLET PO ×2 (06:17→16:57)
[2017-12-16] MEDS: Pantoprazole Sodium 20 MG Tablet PO ×2 (06:17→16:59)
[2017-12-16] MEDS: Levothyroxine 75 MCG Tablet PO (06:17)
[2017-12-16] MEDS: Midodrine HCl 5 MG Tablet 10 MG PO ×3 (06:17→21:31)
[2017-12-16] MEDS: Menthol/Lanolin/Calamine/Znox 113 GM Tube 1 APPLIC TOPICAL ×2 (06:18→21:30)
[2017-12-16] MEDS: Nystatin Powder 15gm Bottle 1 APPLIC TOPICAL ×2 (06:47→21:31)
--- NOTE | 2017-12-16 06:48 | NURSING ---
dressing changed to both arms. rt arm with moderateamount of seepage noted. left arm with min amount of seepage noted. abd and curlex applied then wrapped with cassie. pt tolerated it well. LEG DRESSING CHANGED. 2X2 SQUARE OF ADAPTIC TO KNEES. THEN WITH KURLEX DRESSING APPLIED TO BOTH LEGS. PT TOLERTAED IT WELL.
[2017-12-16] MEDS: Ipratropium/Albuterol Sulfate 3 ML AMPUL.NEB INHALATION ×2 (07:50→20:40)
[2017-12-16] MEDS: Budesonide Respules 0.5 MG/2 ML AMPUL.NEB. INHALATION ×2 (07:50→20:50)
[2017-12-16] MEDS: Aspirin 81 MG TAB.CHEW PO (08:56)
[2017-12-16 09:19] VITALS: PULSE 69; RESP 17
[2017-12-16 15:27] VITALS: BP 111/61; PULSE 70; RESP 18; TEMP 36
--- NOTE | 2017-12-16 16:00 | CASEMGMT ---
Brief interview for mental status (BIMS) and resident mood interview (PHQ-9) completed on this day. BIMS score 15/15. PHQ-9 score 11/27
--- NOTE | 2017-12-16 16:02 | CASEMGMT ---
Addendum entered by Carlene Watts 12/16/17 16:07: Resident could transition skilled at this time as resident continues have have medicare days. Resident reporting to be open to wanting to transition skilled. Original Note: Social Work Spoke with resident and resident spouse. This aids social worker communicating to resident that discharge date has been set for 12/23/17 with the recommendation that resident transition to an extended care facility (ECF). Resident voicing understanding and unsure about recommendation. This aids social worker informing resident that resident has time to think about things and discuss over the topic with spouse. Resident voicing understanding. This aids social worker to follow up with resident on 12/18/17 to begin establishing a facility and collaborate further on discharge plan. Emotional support given. Proposed discharge date: 12/23/17 PLAN: Discharge to an ECF - unknown what facility at this time. Transfer form initiated. Will continue to follow. Carlene MARIEW, ENTERTAINMENT MANAGER
[2017-12-16] MEDS: Warfarin 0.5 MG Tablet PO (16:58)
--- NOTE | 2017-12-16 17:49 | PCM.DC ---
- Discharge Diagnoses Current Active Problems: Current Active and Chronic Problems (Last Reviewed 11/26/17 @ 01:32 by Mustapha Hess DO) Sepsis (Acute) HCAP (healthcare-associated pneumonia) (Acute) Apical mural thrombus (Acute) Sleep apnea (Acute) You will use the following diet at home:: No restrictions, Regular Your food should be the consistency of: Regular Your liquids should be the consistency of: Regular/Thin Discharge Activity: Return to Normal Activity, May Shower, Use Walker Weight Bearing Status: Weight bearing as tolerated Call your doctor if you observe: Fever of 101 or Higher, Inability to urinate, Inability to have a bowel movement, Shortness of breath, Chest pain, Uncontrolled pain Allergies/Adverse Reactions: Allergies fexofenadine Adverse Reaction (Severe, Verified 11/05/17 13:24) Cough prednisone Adverse Reaction (Severe, Verified 11/05/17 13:24) Unknown oxycodone [From Percocet] Adverse Reaction (Unknown, Verified 11/05/17 13:24) Unknown amiodarone Adverse Reaction (Verified 11/05/17 13:24) affects his lungs/breathing azithromycin Adverse Reaction (Verified 11/05/17 13:24) Other PATIENT STATES HE LOST HIS HEARING AND HIS HAIR levofloxacin [From Levaquin] Adverse Reaction (Verified 11/05/17 13:24) Other linezolid [From Zyvox] Adverse Reaction (Verified 11/05/17 13:24) decreased platelets morphine Adverse Reaction (Verified 11/05/17 13:24) agitated tramadol Adverse Reaction (Verified 11/05/17 13:24) interferes with another medication he is on Medications to take at Discharge Albuterol Aerosols [Ventolin Aerosols] 2.5 mg INHALATION Q6H PRN PRN 11/26/17 Aspirin [Aspirin, Baby] 81 mg PO DAILY@0800 11/26/17 Carvedilol [Coreg] 3.125 mg PO BID 11/26/17 Dronedarone Hydrochloride [Multaq] 400 mg PO BID 11/26/17 Ipratropium/Albuterol Sulfate [Duoneb] 3 ml INHALATION Q6HWA.RT 11/26/17 Levothyroxine Sodium [Synthroid] 150 mcg PO SHEPHERD 11/26/17 Levothyroxine [Synthroid] 75 mcg PO MOTUWETHFRSA 11/26/17 Menthol/Lanolin/Calamine/Znox [Calmoseptine Ointment] 1 applic TP TID 11/26/17 Metoclopramide [Reglan] 10 mg PO ACHS 11/26/17 Pantoprazole Sodium [Protonix] 20 mg PO BID 11/26/17 Potassium Chloride [Klor-Con] 20 meq PO BIDCM 11/26/17 Pravastatin [Pravachol] 20 mg PO QHS 11/26/17 Venlafaxine XR [Effexor Xr] 75 mg PO DAILY 11/26/17 Budesonide Aerosol [Pulmicort Respules] 0.5 mg INHALATION BID.RT 12/02/17 Magnesium Hydroxide [Milk Of Magnesia] 30 ml PO DAILY PRN PRN udc 12/02/17 Midodrine HCl [Proamatine] 10 mg PO TID 12/02/17 Acetaminophen [Tylenol] 1,000 mg PO Q8H PRN PRN tablet 12/16/17 Bisacodyl [Dulcolax] 10 mg PO DAILY PRN tablet 12/16/17 Lidocaine [Lidoderm Patch] 1 patch TOPICAL DAILY patch 12/16/17 Mirtazapine [Remeron] 7.5 mg PO QHS tablet 12/16/17 Nystatin Powder [Mycostatin Powder] 1 applic TOPICAL 0600,2200 bottle 12/16/17 Polyethylene Glycol 3350 [Miralax] 17 gm PO DAILY packet 12/16/17 Senna/Docusate Sodium [Senokot-S] 1 tablet PO BID tablet 12/16/17 Warfarin [Coumadin] 0.5 mg PO DAILY@1700 #0 12/16/17 Primary Care Physician: Anna Umana DO [Primary Care Provider] - Please follow up with your Primary Care Physician in: 1 week. Test Results: Please Follow Up With: Osei Abarca NP When: 2 weeks. Please Follow Up With: Dr Jhonny Douglas When: 2 weeks. Proposed Discharge Date: 12/23/17
--- NOTE | 2017-12-16 17:50 | PCM.DC.SUM ---
Discharge Date and Diagnosis - Problem List Patient Problems: Active and Suspected Problems (Last Reviewed 11/26/17 @ 01:32 by Mustapha Hess DO) Sepsis (Acute) HCAP (healthcare-associated pneumonia) (Acute) Apical mural thrombus (Acute) Sleep apnea (Acute) Date of Admission: 12/02/17 Date of Discharge: 12/23/17 - Primary Discharge Diagnosis Active and Suspected Problems (Last Reviewed 11/26/17 @ 01:32 by Mustapha Hess DO) Sepsis (Acute) HCAP (healthcare-associated pneumonia) (Acute) Apical mural thrombus (Acute) Sleep apnea (Acute) - Secondary Discharge Diagnosis Chronic Problems (Last Reviewed 11/26/17 @ 01:32 by Mustapha Hess DO) Obesity (Chronic) Deep vein thrombosis (Chronic) Bronchiectasis (Chronic) Chronic systolic heart failure (Chronic) Coronary artery disease (Chronic) Myocardial infarction (Chronic) Diabetes mellitus (Chronic) Hypertension (Chronic) Hypothyroidism (Chronic) Nausea (Chronic) GERD (gastroesophageal reflux disease) (Chronic) Depression (Chronic) Cardiomyopathy (Chronic) S/P CABG x 4 (Chronic) S/P PTCA (percutaneous transluminal coronary angioplasty) (Chronic) Obesity (BMI 30.0-34.9) (Chronic) ALIVIA (obstructive sleep apnea) (Chronic) History of DVT (deep vein thrombosis) (Chronic) COPD (chronic obstructive pulmonary disease) (Chronic) CKD (chronic kidney disease) stage 3, GFR 30-59 ml/min (Chronic) [facility] (current) use of anticoagulants (Chronic) Atrial fibrillation (Chronic) Cardiac pacemaker in situ (Chronic) Ventricular tachycardia (Chronic) Chronic systolic congestive heart failure (Chronic) Presence of stent in coronary artery (Chronic ~06/20/04) PTCA/DO to mid RCA 06/20/04 H/O percutaneous transluminal coronary angioplasty (Chronic) 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) CABG x4-PABLITO to LAD, ZIMMERMAN to DX, SVG to CX, SVG to RCA 1985 Atherosclerotic heart disease of [place] coronary artery without angina pectoris (Chronic) CABG x4-PABLITO to LAD, ZIMMERMAN to DX, SVG to CX, SVG to RCA 1985; PTCA/DO to mid RCA 06/20/04 Ischemic cardiomyopathy (Chronic) Benign essential hypertension (Chronic) Type II diabetes mellitus (Chronic) HLD (hyperlipidemia) (Chronic) AICD (automatic cardioverter/defibrillator) present (Chronic) implantation 04/21; gen change and pocket revision 03/17/13 Hospital Course and Treatment Imaging Results: 12/03/17 13:25 Diet: Regular Diet Is pt able to select menu?: Yes Diet Comments: INCLUDE EITHER MAGIC CUP PUDDING OR PROTEIN SHAKE W/EVERY MEAL Labs (Last 48 Hours) 12/15/17 05:30 PT 38.8 H INR 3.9 H* Consultations 12/02/17 23:09 Consult: Onc/Wound/services manager Routine Comment: Rt knee tunnel Operations: None Procedures: None Summary of Care Provided: The patient is a 82 year old Male with below past medical history hospitalized for sepsis secondary to E. Coli, Burkholderia Cepacia, HCAP, Urinary tract infection, complicated by apical thrombus, admitted to TCU with debility, here for rehabilitation, strengthening, prior to discharge home with spouse. Resident is dying, he is hospice appropriate, but not hospice ready. Discharged to [facility] skilled to continue PT/OT. Discharge Diet: No Restrictions Discharge Activity: Return to Normal Activity, May Shower, Use Walker Weight Bearing Status: Weight bearing as tolerated Call your doctor if you observe: Fever of 101 or Higher, Inability to urinate, Inability to have a bowel movement, Shortness of breath, Chest pain, Uncontrolled pain Home Medications: Medications to take at Discharge Albuterol Aerosols [Ventolin Aerosols] 2.5 mg INHALATION Q6H PRN PRN 11/26/17 Aspirin [Aspirin, Baby] 81 mg PO DAILY@0800 11/26/17 Carvedilol [Coreg] 3.125 mg PO BID 11/26/17 Dronedarone Hydrochloride [Multaq] 400 mg PO BID 11/26/17 Ipratropium/Albuterol Sulfate [Duoneb] 3 ml INHALATION Q6HWA.RT 11/26/17 Levothyroxine Sodium [Synthroid] 150 mcg PO SHEPHERD 11/26/17 Levothyroxine [Synthroid] 75 mcg PO MOTUWETHFRSA 11/26/17 Menthol/Lanolin/Calamine/Znox [Calmoseptine Ointment] 1 applic TP TID 11/26/17 Metoclopramide [Reglan] 10 mg PO ACHS 11/26/17 Pantoprazole Sodium [Protonix] 20 mg PO BID 11/26/17 Potassium Chloride [Klor-Con] 20 meq PO BIDCM 11/26/17 Pravastatin [Pravachol] 20 mg PO QHS 11/26/17 Venlafaxine XR [Effexor Xr] 75 mg PO DAILY 11/26/17 Budesonide Aerosol [Pulmicort Respules] 0.5 mg INHALATION BID.RT 12/02/17 Magnesium Hydroxide [Milk Of Magnesia] 30 ml PO DAILY PRN PRN udc 12/02/17 Midodrine HCl [Proamatine] 10 mg PO TID 12/02/17 Acetaminophen [Tylenol] 1,000 mg PO Q8H PRN PRN tablet 12/16/17 Bisacodyl [Dulcolax] 10 mg PO DAILY PRN tablet 12/16/17 Lidocaine [Lidoderm Patch] 1 patch TOPICAL DAILY patch 12/16/17 Mirtazapine [Remeron] 7.5 mg PO QHS tablet 12/16/17 Nystatin Powder [Mycostatin Powder] 1 applic TOPICAL 0600,2200 bottle 12/16/17 Polyethylene Glycol 3350 [Miralax] 17 gm PO DAILY packet 12/16/17 Senna/Docusate Sodium [Senokot-S] 1 tablet PO BID tablet 12/16/17 Warfarin [Coumadin] 0.5 mg PO DAILY@1700 #0 12/16/17 Primary Care Physician: Anna Umana DO [Primary Care Provider] - Please follow up with your Primary Care Physician in: 1 week. Please Follow Up With: Osei Abarca NP When: 2 weeks. Please Follow Up With: Dr Jhonny Douglas When: 2 weeks. Disposition: [facility]std Living/Non-Skill [place] Minutes spent on discharge:: 35 Patient Condition:: Poor Medical Necessity - Tobacco Use Smoking Status: Former smoker Tobacco Use: Non-smoker Meaningful Use Info Meaningful Use Diagnoses (Choose all that apply): None applicable
--- NOTE | 2017-12-16 17:53 | DS.PCM_ITS ---
Discharge Date and Diagnosis - Problem List Patient Problems: Active and Suspected Problems (Last Reviewed 11/26/17 @ 01:32 by Mustapha Hess DO) Sepsis (Acute) HCAP (healthcare-associated pneumonia) (Acute) Apical mural thrombus (Acute) Sleep apnea (Acute) Date of Admission: 12/02/17 Date of Discharge: 12/23/17 - Primary Discharge Diagnosis Active and Suspected Problems (Last Reviewed 11/26/17 @ 01:32 by Mustapha Hess DO) Sepsis (Acute) HCAP (healthcare-associated pneumonia) (Acute) Apical mural thrombus (Acute) Sleep apnea (Acute) - Secondary Discharge Diagnosis Chronic Problems (Last Reviewed 11/26/17 @ 01:32 by Mustapha Hess DO) Obesity (Chronic) Deep vein thrombosis (Chronic) Bronchiectasis (Chronic) Chronic systolic heart failure (Chronic) Coronary artery disease (Chronic) Myocardial infarction (Chronic) Diabetes mellitus (Chronic) Hypertension (Chronic) Hypothyroidism (Chronic) Nausea (Chronic) GERD (gastroesophageal reflux disease) (Chronic) Depression (Chronic) Cardiomyopathy (Chronic) S/P CABG x 4 (Chronic) S/P PTCA (percutaneous transluminal coronary angioplasty) (Chronic) Obesity (BMI 30.0-34.9) (Chronic) ALIVIA (obstructive sleep apnea) (Chronic) History of DVT (deep vein thrombosis) (Chronic) COPD (chronic obstructive pulmonary disease) (Chronic) CKD (chronic kidney disease) stage 3, GFR 30-59 ml/min (Chronic) skilled nursing (current) use of anticoagulants (Chronic) Atrial fibrillation (Chronic) Cardiac pacemaker in situ (Chronic) Ventricular tachycardia (Chronic) Chronic systolic congestive heart failure (Chronic) Presence of stent in coronary artery (Chronic ~06/20/04) PTCA/DO to mid RCA 06/20/04 H/O percutaneous transluminal coronary angioplasty (Chronic) 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) CABG x4-PABLITO to LAD, ZIMMERMAN to DX, SVG to CX, SVG to RCA 1985 Atherosclerotic heart disease of [place] coronary artery without angina pectoris (Chronic) CABG x4-PABLITO to LAD, ZIMMERMAN to DX, SVG to CX, SVG to RCA 1985; PTCA/DO to mid RCA 06/20/04 Ischemic cardiomyopathy (Chronic) Benign essential hypertension (Chronic) Type II diabetes mellitus (Chronic) HLD (hyperlipidemia) (Chronic) AICD (automatic cardioverter/defibrillator) present (Chronic) implantation 04/21; gen change and pocket revision 03/17/13 Hospital Course and Treatment Imaging Results: 12/03/17 13:25 Diet: Regular Diet Is pt able to select menu?: Yes Diet Comments: INCLUDE EITHER MAGIC CUP PUDDING OR PROTEIN SHAKE W/EVERY MEAL Labs (Last 48 Hours) 12/15/17 05:30 PT 38.8 H INR 3.9 H* Consultations 12/02/17 23:09 Consult: Onc/Wound/inspector and clerk Routine Comment: Rt knee tunnel Operations: None Procedures: None Summary of Care Provided: The patient is a 82 year old Male with below past medical history hospitalized for sepsis secondary to E. Coli, Burkholderia Cepacia, HCAP, Urinary tract infection, complicated by apical thrombus, admitted to TCU with debility, here for rehabilitation, strengthening, prior to discharge home with spouse. Resident is dying, he is hospice appropriate, but not hospice ready. Discharged to [facility] skilled to continue PT/OT. Discharge Diet: No Restrictions Discharge Activity: Return to Normal Activity, May Shower, Use Walker Weight Bearing Status: Weight bearing as tolerated Call your doctor if you observe: Fever of 101 or Higher, Inability to urinate, Inability to have a bowel movement, Shortness of breath, Chest pain, Uncontrolled pain Home Medications: Medications to take at Discharge Albuterol Aerosols [Ventolin Aerosols] 2.5 mg INHALATION Q6H PRN PRN 11/26/17 Aspirin [Aspirin, Baby] 81 mg PO DAILY@0800 11/26/17 Carvedilol [Coreg] 3.125 mg PO BID 11/26/17 Dronedarone Hydrochloride [Multaq] 400 mg PO BID 11/26/17 Ipratropium/Albuterol Sulfate [Duoneb] 3 ml INHALATION Q6HWA.RT 11/26/17 Levothyroxine Sodium [Synthroid] 150 mcg PO SHEPHERD 11/26/17 Levothyroxine [Synthroid] 75 mcg PO MOTUWETHFRSA 11/26/17 Menthol/Lanolin/Calamine/Znox [Calmoseptine Ointment] 1 applic TP TID 11/26/17 Metoclopramide [Reglan] 10 mg PO ACHS 11/26/17 Pantoprazole Sodium [Protonix] 20 mg PO BID 11/26/17 Potassium Chloride [Klor-Con] 20 meq PO BIDCM 11/26/17 Pravastatin [Pravachol] 20 mg PO QHS 11/26/17 Venlafaxine XR [Effexor Xr] 75 mg PO DAILY 11/26/17 Budesonide Aerosol [Pulmicort Respules] 0.5 mg INHALATION BID.RT 12/02/17 Magnesium Hydroxide [Milk Of Magnesia] 30 ml PO DAILY PRN PRN udc 12/02/17 Midodrine HCl [Proamatine] 10 mg PO TID 12/02/17 Acetaminophen [Tylenol] 1,000 mg PO Q8H PRN PRN tablet 12/16/17 Bisacodyl [Dulcolax] 10 mg PO DAILY PRN tablet 12/16/17 Lidocaine [Lidoderm Patch] 1 patch TOPICAL DAILY patch 12/16/17 Mirtazapine [Remeron] 7.5 mg PO QHS tablet 12/16/17 Nystatin Powder [Mycostatin Powder] 1 applic TOPICAL 0600,2200 bottle 12/16/17 Polyethylene Glycol 3350 [Miralax] 17 gm PO DAILY packet 12/16/17 Senna/Docusate Sodium [Senokot-S] 1 tablet PO BID tablet 12/16/17 Warfarin [Coumadin] 0.5 mg PO DAILY@1700 #0 12/16/17 Primary Care Physician: Anna Umana DO [Primary Care Provider] - Please follow up with your Primary Care Physician in: 1 week. Please Follow Up With: Osei Abarca NP When: 2 weeks. Please Follow Up With: Dr Jhonny Douglas When: 2 weeks. Disposition: [facility] Living/Non-Skill [place] Minutes spent on discharge:: 35 Patient Condition:: Poor Medical Necessity - Tobacco Use Smoking Status: Former smoker Tobacco Use: Non-smoker Meaningful Use Info Meaningful Use Diagnoses (Choose all that apply): None applicable
--- NOTE | 2017-12-16 17:53 | PCM.TXEXTCAR ---
- Diet 12/03/17 13:25 Diet: Regular Diet Is pt able to select menu?: Yes Diet Comments: INCLUDE EITHER MAGIC CUP PUDDING OR PROTEIN SHAKE W/EVERY MEAL - Routine Orders/Code Status Suppository Type: Dulcolax 10mg Suppository Frequency: Daily PRN Code Status: Full Code - Wound(s) Left knee Wound Type: Abrasion Dressing Change: Dry Sterile Dressing/adaptic x2 layers Right knee Wound Type: Abrasion Dressing Change: Dry Sterile Dressing/adaptic x2 layers Left elbow Wound Type: Skin Tear Dressing Change: Dry Sterile Dressing Right elbow Wound Type: Skin Tear Dressing Change: Dry Sterile Dressing lt upper arm Wound Type: Abrasion Dressing Change: Dry Sterile Dressing L lateral ankle Wound Type: Stasis Ulcer Dressing Change: Bandaid - Therapies Weight Bearing: Weight bearing as tolerated Extremity Affected:: Bilateral Lower Physical Therapy: Eval and Treat Occupational Therapy: Eval and Treat - Problem/Diagnosis (1) Sepsis Status: Acute Current Visit: Yes (2) HCAP (healthcare-associated pneumonia) Status: Acute Current Visit: Yes (3) Apical mural thrombus Status: Acute Current Visit: Yes (4) Sleep apnea Status: Acute Current Visit: Yes (5) UTI (urinary tract infection) Status: Acute Current Visit: No (6) Obesity Status: Chronic Current Visit: No (7) Deep vein thrombosis Status: Chronic Current Visit: No (8) Bronchiectasis Status: Chronic Current Visit: No (9) Chronic systolic heart failure Status: Chronic Current Visit: No (10) Coronary artery disease Status: Chronic Current Visit: No (11) Myocardial infarction Status: Chronic Current Visit: No (12) Diabetes mellitus Status: Chronic Current Visit: No (13) Hypertension Status: Chronic Current Visit: No (14) Hypothyroidism Status: Chronic Current Visit: No (15) Nausea Status: Chronic Current Visit: No (16) GERD (gastroesophageal reflux disease) Status: Chronic Current Visit: No (17) Depression Status: Chronic Current Visit: No (18) COPD (chronic obstructive pulmonary disease) Status: Chronic Current Visit: No (19) Atrial fibrillation Status: Chronic Current Visit: No (20) HLD (hyperlipidemia) Status: Chronic Current Visit: No - Allergies/Procedures Done in Hospital Allergies/Adverse Reactions: Allergies fexofenadine Adverse Reaction (Severe, Verified 11/05/17 13:24) Cough prednisone Adverse Reaction (Severe, Verified 11/05/17 13:24) Unknown oxycodone [From Percocet] Adverse Reaction (Unknown, Verified 11/05/17 13:24) Unknown amiodarone Adverse Reaction (Verified 11/05/17 13:24) affects his lungs/breathing azithromycin Adverse Reaction (Verified 11/05/17 13:24) Other PATIENT STATES HE LOST HIS HEARING AND HIS HAIR levofloxacin [From Levaquin] Adverse Reaction (Verified 11/05/17 13:24) Other linezolid [From Zyvox] Adverse Reaction (Verified 11/05/17 13:24) decreased platelets morphine Adverse Reaction (Verified 11/05/17 13:24) agitated tramadol Adverse Reaction (Verified 11/05/17:) interferes with another medication he is on - Type of Care/Length of Stay Estimated LOS: More Than 30 Days Type of Care Needed: Skilled Rehab Potential: Fair Prognosis: Fair - Additional Orders/Day of Discharge Day of Discharge: 12/23/17 - Dietary and Speech Recommendations Dietitian Recommendations/Changes: Rec consider appetite stimulant d/t decreased appetite. - Follow Up Care Primary Care Physician: Anna Umana DO [Primary Care Provider] - Please follow up with your Primary Care Physician in: 1 week. Please Follow Up With: Osei Abarca NP When: 2 weeks. Please Follow Up With: Dr Jhonny Douglas When: 2 weeks.
[2017-12-16 20:40] VITALS: PULSE 62; RESP 18
[2017-12-16] MEDS: Mirtazapine 15 MG Tablet 7.5 MG PO (21:31)
[2017-12-16] MEDS: Pravastatin 20 MG Tablet PO (21:31)
[2017-12-17] MEDS: Menthol/Lanolin/Calamine/Znox 113 GM Tube 1 APPLIC TOPICAL ×2 (06:18→21:18)
[2017-12-17] MEDS: Lidocaine 5% Patch 1 PATCH TOPICAL (06:19)
[2017-12-17] MEDS: Metoclopramide 10 MG Tablet PO ×4 (06:19→21:17)
[2017-12-17] MEDS: Levothyroxine 75 MCG Tablet PO (06:20)
[2017-12-17] MEDS: Carvedilol 3.125 MG TABLET PO ×2 (06:20→16:51)
[2017-12-17] MEDS: Pantoprazole Sodium 20 MG Tablet PO ×2 (06:20→16:46)
[2017-12-17] MEDS: Venlafaxine XR 75 MG Capsule PO (06:20)
[2017-12-17] MEDS: Nystatin Powder 15gm Bottle 1 APPLIC TOPICAL ×2 (06:20→21:18)
[2017-12-17] MEDS: Midodrine HCl 5 MG Tablet 10 MG PO ×3 (06:20→21:17)
--- NOTE | 2017-12-17 06:46 | NURSING ---
dressing changed to left knee adaapt applied to abrasion then wrapped w curlex. rt knee adapt applied to rt knee abrasion then wrap with curlex. pt did not want the cassie wraps put back on. dressing to rt and left arms. abd applied under elbows. small abrasion noted on left upper arm. curlex then applied. with cassie wraps
[2017-12-17] MEDS: 0.9% NaCl VAD Flush 10 ML IV (07:16)
--- NOTE | 2017-12-17 07:17 | NURSING ---
rt power port accessed with 3/4 gripper kit. site cleaned. pt and nurse wore mask. site preped. 3/4 gripper used. blood returned immediately. blood discardred. lab tubes drawn . port flushed and dressing applied.
[2017-12-17] MEDS: Budesonide Respules 0.5 MG/2 ML AMPUL.NEB. INHALATION ×2 (07:20→20:40)
[2017-12-17] MEDS: Ipratropium/Albuterol Sulfate 3 ML AMPUL.NEB INHALATION ×3 (07:20→20:40)
[2017-12-17 07:36] LABS: Absolute Lymphocyte Count 2.04 X10^3/ul (0.83-4.51); Absolute Neutrophil Count 3.1 X10^3/uL (2.0-7.7); Basophil# 0.01 X10^3/uL; Basophil% 0.1 % (0-1); Eosinophil# 0.41 X10^3/uL; Eosinophils% 6.1 % (0-5); Hemoglobin 9.9 g/dl (13.0-16.5); Lymphocyte # 2.04 X10^3/ul (4.0); Lymphocyte % 30.4 % (19-41); Mean Corp Hgb Conc 31.9 g/gl (32-36); Mean Corpuscular Hgb 29.7 pg (27.0-32.0); Mean Corpuscular Volume 93.1 fL (80-94); Monocyte# 1.13 X10^3/uL; Monocyte% 16.8 % (0-10); Neutrophil # 3.12 X10^3/uL (2.7-7.7); Neutrophil % 46.5 % (47-70); Platelet Count 271 K/mm3 (150-450); RBC Distribution Width CV 18.7 % (11.6-14.6); RBC Distribution Width SD 63.7 fl (35.1-43.9); Red Blood Count 3.33 M/mm3 (4.6-6.2); White Blood Count 6.7 K/mm3 (4.4-11.0)
[2017-12-17 07:45] LABS: POSITIVE COUNT NO; POSITIVE DIFFERENTIAL NO; POSITIVE MORPHOLOGY NO
[2017-12-17 07:49] VITALS: PULSE 68; RESP 19; O2SAT 95
[2017-12-17 08:05] LABS: Anion Gap 7 (5-15); BUN 22 mg/dL (7-18); BUN/Creat Ratio 15.3 RATIO (10-20); Calcium,Total 6.8 mg/dL (8.5-10.1); Chloride 108 mmol/L (98-107); Creatinine, Serum 1.44 mg/dL (0.70-1.30); EST Glomerular Filtration Rate 50 mL/min (>60); Est Glom Filt Rate - Afr Amer 61 mL/min (>60); Estimated Creatinine Clearance 36.92 ml/min; Glucose 79 mg/dL (74-106); Potassium 4.2 mmol/L (3.5-5.1); Sodium Level 141 mmol/L (136-145)
[2017-12-17] MEDS: Aspirin 81 MG TAB.CHEW PO (08:52)
[2017-12-17 13:13] VITALS: PULSE 70; RESP 20
[2017-12-17 15:36] VITALS: BP 148/78; PULSE 67; RESP 18; TEMP 36.7; O2SAT 99
[2017-12-17] MEDS: Senna/Docusate Sodium 1 Tablet PO (16:50)
[2017-12-17] MEDS: Warfarin 0.5 MG Tablet PO (16:51)
[2017-12-17 20:40] VITALS: PULSE 68; RESP 18
[2017-12-17] MEDS: Mirtazapine 15 MG Tablet 7.5 MG PO (21:17)
[2017-12-17] MEDS: Pravastatin 20 MG Tablet PO (21:17)
[2017-12-18] MEDS: Levothyroxine 75 MCG Tablet PO (04:43)
[2017-12-18] MEDS: Lidocaine 5% Patch 1 PATCH TOPICAL (04:43)
[2017-12-18] MEDS: Metoclopramide 10 MG Tablet PO ×4 (04:43→20:19)
[2017-12-18] MEDS: Pantoprazole Sodium 20 MG Tablet PO ×2 (04:43→16:25)
[2017-12-18] MEDS: Venlafaxine XR 75 MG Capsule PO (04:44)
[2017-12-18] MEDS: Carvedilol 3.125 MG TABLET PO ×2 (04:44→16:25)
[2017-12-18] MEDS: Midodrine HCl 5 MG Tablet 10 MG PO ×3 (04:44→20:19)
[2017-12-18] MEDS: Menthol/Lanolin/Calamine/Znox 113 GM Tube 1 APPLIC TOPICAL ×2 (04:46→20:19)
[2017-12-18] MEDS: Nystatin Powder 15gm Bottle 1 APPLIC TOPICAL ×2 (04:46→20:21)
[2017-12-18] MEDS: 0.9% NaCl VAD Flush 10 ML IV ×3 (04:48→16:54)
[2017-12-18 05:20] LABS: International Normalized Ratio 3.1; Prothrombin Time (Protime)PT. 32.4 SECONDS (11.7-14.9)
[2017-12-18 07:40] VITALS: O2SAT 94
[2017-12-18] MEDS: Aspirin 81 MG TAB.CHEW PO (09:41)
[2017-12-18 15:58] VITALS: BP 114/77; PULSE 83; RESP 18; TEMP 36.7; O2SAT 96
[2017-12-18] MEDS: Warfarin 0.5 MG Tablet PO (16:23)
[2017-12-18] MEDS: Senna/Docusate Sodium 1 Tablet PO (16:25)
--- NOTE | 2017-12-18 16:41 | CHAPLAIN ---
Type of Pastoral Visit ___ Initial Visit _x__ Follow-up Visit ___ On-call Visit ___ General Patient Visit ___ Spiritual Assessment ___ Family Conference ___ Bereavement ___ Rapid Response ___ Code Blue ___ Other (describe below) Pastoral Care Referral From _x__ Patient ___ Family ___ Nurse ___ Physician ___ Line Construction Supervisor ___ Garbage Collector Driver ___ Other (describe below) Sacrament/Intervention _x__ Active listening ___ Anointing ___ Oriental Orthodox ___ Bereavement ___ Communion ___ Wendy exploration ___ ___ Life review _x__ Prayer ___ Reconciliation ___ Sacrament of Sick _x__ Supportive presence ___ Wedding ___ Other (describe below) Pastoral Comments patient dealing with discouragement; pt realizing that he may need placement in ECF due to not reaching goals of mobility and strength; pt given time to talk and express himself; prayer received
--- NOTE | 2017-12-18 16:44 | CASEMGMT ---
Social Work Spoke with resident and resident spouse in room. Resident reporting to be choosing to discharge to [facility] for further care at this time due to [facility] having a termite control service representative care option for resident. Resident does not have a second option at this time. Support given. Will make referral to [facility] on 12/19/17 Proposed discharge date: 12/23/17 PLAN: Discharge to [facility] skilled. Will continue to follow. Carlene FALCON, [employer]
[2017-12-18 18:45] VITALS: PULSE 66; RESP 18; O2SAT 97
[2017-12-18] MEDS: Budesonide Respules 0.5 MG/2 ML AMPUL.NEB. INHALATION (18:45)
[2017-12-18] MEDS: Ipratropium/Albuterol Sulfate 3 ML AMPUL.NEB INHALATION (18:45)
[2017-12-18] MEDS: Pravastatin 20 MG Tablet PO (20:19)
[2017-12-18] MEDS: Mirtazapine 15 MG Tablet 7.5 MG PO (20:20)
[2017-12-19] MEDS: Menthol/Lanolin/Calamine/Znox 113 GM Tube 1 APPLIC TOPICAL ×2 (06:20→21:22)
[2017-12-19] MEDS: Nystatin Powder 15gm Bottle 1 APPLIC TOPICAL ×2 (06:21→21:21)
[2017-12-19] MEDS: Venlafaxine XR 75 MG Capsule PO (06:22)
[2017-12-19] MEDS: Pantoprazole Sodium 20 MG Tablet PO ×2 (06:22→17:04)
[2017-12-19] MEDS: Metoclopramide 10 MG Tablet PO ×4 (06:22→21:20)
[2017-12-19] MEDS: Midodrine HCl 5 MG Tablet 10 MG PO ×3 (06:22→21:20)
[2017-12-19] MEDS: Levothyroxine 75 MCG Tablet PO (06:22)
[2017-12-19] MEDS: Lidocaine 5% Patch 1 PATCH TOPICAL (06:23)
[2017-12-19] MEDS: Carvedilol 3.125 MG TABLET PO ×2 (06:23→17:03)
[2017-12-19 07:00] VITALS: PULSE 59; RESP 16; O2SAT 98
[2017-12-19] MEDS: Ipratropium/Albuterol Sulfate 3 ML AMPUL.NEB INHALATION ×2 (07:00→13:25)
[2017-12-19] MEDS: Budesonide Respules 0.5 MG/2 ML AMPUL.NEB. INHALATION (07:00)
[2017-12-19] MEDS: Aspirin 81 MG TAB.CHEW PO (09:03)
--- NOTE | 2017-12-19 13:06 | NURSING ---
Complains of dizziness and nausea after riding bicycle with therapy. Vitals checked while resting and BP, Pulse and SPO2 WNL. Resident reports head is not spinning like it was with exercise. Assisted back to room. Will continue to monitor.
[2017-12-19 13:25] VITALS: PULSE 70; RESP 16
--- NOTE | 2017-12-19 15:06 | CASEMGMT ---
Social [facility] clinical social work therapist making referral. Clinical information faxed. Bianka to get in contact with this clinical social work therapist on whether or not they can accept resident. Proposed discharge date: 12/23/17 PLAN: Discharge to [facility] pending approval. Carlene FALCON, SILVER SOLUTION MIXER
[2017-12-19 15:52] VITALS: BP 102/66; PULSE 64; RESP 18; TEMP 36.4; O2SAT 98
[2017-12-19] MEDS: Warfarin 0.5 MG Tablet PO (17:01)
[2017-12-19] MEDS: Pravastatin 20 MG Tablet PO (21:20)
[2017-12-19] MEDS: Mirtazapine 15 MG Tablet 7.5 MG PO (21:21)
[2017-12-20 05:53] VITALS: BP 119/64; PULSE 65
[2017-12-20] MEDS: Nystatin Powder 15gm Bottle 1 APPLIC TOPICAL ×2 (05:54→22:29)
[2017-12-20] MEDS: Menthol/Lanolin/Calamine/Znox 113 GM Tube 1 APPLIC TOPICAL ×2 (05:54→22:29)
[2017-12-20] MEDS: Pantoprazole Sodium 20 MG Tablet PO ×2 (05:55→17:19)
[2017-12-20] MEDS: Venlafaxine XR 75 MG Capsule PO (05:55)
[2017-12-20] MEDS: Metoclopramide 10 MG Tablet PO ×4 (05:55→22:26)
[2017-12-20] MEDS: Midodrine HCl 5 MG Tablet 10 MG PO ×3 (05:55→22:27)
[2017-12-20] MEDS: Carvedilol 3.125 MG TABLET PO ×2 (05:55→17:19)
[2017-12-20] MEDS: Levothyroxine 75 MCG Tablet PO (05:56)
[2017-12-20] MEDS: Lidocaine 5% Patch 1 PATCH TOPICAL (05:58)
[2017-12-20 06:54] VITALS: PULSE 72; RESP 18; O2SAT 96
[2017-12-20] MEDS: Budesonide Respules 0.5 MG/2 ML AMPUL.NEB. INHALATION ×2 (06:54→19:06)
[2017-12-20] MEDS: Ipratropium/Albuterol Sulfate 3 ML AMPUL.NEB INHALATION ×3 (06:54→19:06)
[2017-12-20] MEDS: Aspirin 81 MG TAB.CHEW PO (09:02)
[2017-12-20 13:00] VITALS: PULSE 76; RESP 20
[2017-12-20 15:24] VITALS: BP 112/67; PULSE 69; RESP 18; TEMP 36.2; O2SAT 96
[2017-12-20] MEDS: Senna/Docusate Sodium 1 Tablet PO (17:20)
[2017-12-20] MEDS: Warfarin 0.5 MG Tablet PO (17:21)
[2017-12-20 19:09] VITALS: PULSE 72; RESP 18
[2017-12-20] MEDS: Mirtazapine 15 MG Tablet 7.5 MG PO (22:26)
[2017-12-20] MEDS: Pravastatin 20 MG Tablet PO (22:26)
[2017-12-21] MEDS: Magnesium Hydroxide 30 ML UDC PO (05:09)
[2017-12-21] MEDS: Menthol/Lanolin/Calamine/Znox 113 GM Tube 1 APPLIC TOPICAL ×2 (05:13→20:25)
[2017-12-21] MEDS: Nystatin Powder 15gm Bottle 1 APPLIC TOPICAL ×2 (05:13→20:26)
--- NOTE | 2017-12-21 05:27 | NURSING ---
Addendum entered by Rossy Camacho 12/21/17 06:48: Pt not feeling any relief from MOM. Dr. Parker notified, and new order for xray of abdomen. Will update pt. Original Note: Pt c/o stomach pain earlier this morning, but reported that it was resolved by having a BM. Pt now c/o stomach pain again but not being able to describe it as nausea or indigestion. Pt stated I can't believe I'm in a hospital and feeling this sick. Gave pt PRN milk of mag. Will continue to monitor.
--- NOTE | 2017-12-21 07:45 | RAD_ITS ---
STUDY: X-RAY - ABDOMEN/PELVIS REASON FOR EXAM: Male, 82 years old. Dominant pain and diarrhea TECHNIQUE: Two AP supine views of the abdomen and pelvis. COMPARISON: November 20, 2017 abdominal series FINDINGS: There is elevation of the right hemidiaphragm. There is a flattened appearance of the left hemidiaphragm. There is partial visualization of pacer leads overlying the heart sternotomy wires. There is incomplete visualization of the abdomen. Portions of the abdomen out of the [id number] especially on the right side due to body habitus. Patient has a large pannus. There are mildly distended loops of small bowel in the right lower quadrant. There are decompressed loops of large bowel. There is postoperative change in the pelvis. Liver spleen and kidneys are mostly obscured. There are diffuse degenerative changes of the visualized lumbar spine. RAD/Abdomen Single View (Portable) IMPRESSION: Limited study, partial visualization of a pacer sternotomy, Elevation of the right hemidiaphragm. Nonspecific bowel gas pattern mild focal ileus right lower quadrant, postoperative change pelvis. Electronically Signed: Mariela Hicks MD at 8:22 EDT Tel , Service support ,
--- NOTE | 2017-12-21 10:51 | NURSING ---
Pt. resting in bed with eyes closed. Patient still refusing to take any medication at this time. States his stomach is feeling better but that he doesn't want to take any medication because it will make him feel bad again. Pt encouraged to take cardiac medications, still refused. Patient offered food and fluids, denies at this time. Will continue to monitor.
--- NOTE | 2017-12-21 12:44 | NURSING ---
Dr. Parker updated on KUB results, NNO at this time. Continue to monitor.
[2017-12-21] MEDS: Acetaminophen 500 MG Tablet 1000 MG PO (14:38)
[2017-12-21] MEDS: Midodrine HCl 5 MG Tablet 10 MG PO (14:38)
[2017-12-21 15:15] VITALS: BP 123/73; PULSE 84; RESP 18; TEMP 36.5; O2SAT 97
[2017-12-22] MEDS: Nystatin Powder 15gm Bottle 1 APPLIC TOPICAL ×2 (05:34→20:28)
[2017-12-22] MEDS: Menthol/Lanolin/Calamine/Znox 113 GM Tube 1 APPLIC TOPICAL ×2 (05:34→20:28)
[2017-12-22 06:21] LABS: International Normalized Ratio 2.7; Prothrombin Time (Protime)PT. 28.5 SECONDS (11.7-14.9)
[2017-12-22 07:50] VITALS: PULSE 82; RESP 18; O2SAT 97
[2017-12-22] MEDS: Ipratropium/Albuterol Sulfate 3 ML AMPUL.NEB INHALATION ×2 (07:50→20:00)
[2017-12-22] MEDS: Budesonide Respules 0.5 MG/2 ML AMPUL.NEB. INHALATION ×2 (07:50→20:00)
[2017-12-22 08:53] VITALS: BP 128/74; PULSE 79; RESP 18; TEMP 36.6; O2SAT 98
[2017-12-22] MEDS: Aspirin 81 MG TAB.CHEW PO (09:01)
[2017-12-22] MEDS: Venlafaxine XR 75 MG Capsule PO (09:01)
[2017-12-22] MEDS: Carvedilol 3.125 MG TABLET PO ×2 (09:01→16:52)
[2017-12-22] MEDS: Pantoprazole Sodium 20 MG Tablet PO ×2 (09:01→16:53)
[2017-12-22] MEDS: Lidocaine 5% Patch 1 PATCH TOPICAL (09:03)
[2017-12-22] MEDS: 0.9% NaCl VAD Flush 10 ML IV (09:13)
--- NOTE | 2017-12-22 09:18 | NURSING ---
pt resting in bed, wrapped lt upper arm/elbow d/t drng clear fluid. repositioned pt in bed so he could eat his brkfst, meds given late per pt request. Will give synthroid on empty stomach after meal. pt eating cheerios. Flushed port with 10cc, good blood return, new green cap applied. Vitals stable. No complaints. grumpy/grouchy this am. Call light in reach.
[2017-12-22] MEDS: Levothyroxine 75 MCG Tablet PO (10:26)
[2017-12-22] MEDS: Metoclopramide 10 MG Tablet PO ×3 (10:26→20:27)
--- NOTE | 2017-12-22 11:19 | CASEMGMT ---
Social [facility] reporting to be able to accept resident on 12/23/17. Spoke with resident and resident spouse, this oncology social work communicating above information. Resident and resident spouse agreeable and requesting for transportation to be set up via wheelchair van. Support given. Telephone call to Moisés/Kylah Tucker. Transportation set up for 12/23/17 @ 2:30. Transportation form completed and placed with resident discharge information. Resident is agreeable to discharge time. PASRR completed in [facility]. Results faxed to the [facility] along with discharge information. Proposed discharge date: 12/23/17 PLAN: Discharge to the [facility] skilled. Carlene FALCON, [employer]
[2017-12-22 15:11] VITALS: BP 134/71; PULSE 65; RESP 18; TEMP 36.4; O2SAT 100
[2017-12-22] MEDS: Warfarin 0.5 MG Tablet PO (16:52)
[2017-12-22 20:00] VITALS: PULSE 88; RESP 16; O2SAT 96
[2017-12-22] MEDS: Midodrine HCl 5 MG Tablet 10 MG PO (20:26)
[2017-12-22] MEDS: Mirtazapine 15 MG Tablet 7.5 MG PO (20:27)
[2017-12-22] MEDS: Pravastatin 20 MG Tablet PO (20:27)
--- NOTE | 2017-12-22 21:00 | NURSING ---
Addendum entered by Miya Mcgregor 12/23/17 09:58: Dr. Parker updated on incident during dressing change. NO for bacitracin and CDD to area daily. Original Note: During drsg change, pt moved left arm while this nurse attempting to cut drsg with scissors. Puncture site X2 to left FA. Site cleansed with NS, dry dressing applied, secured with Kerlix and cassie wraps. Will update Dr Parker. Will continue to monitor and asses.
[2017-12-23] VITALS (9 sets, daily range): BP systolic 111–150; BP diastolic 56–99; PULSE 71–83; RESP 18; TEMP 36.8; O2SAT 96–98
--- NOTE | 2017-12-23 02:07 | NURSING ---
Patient complaining of pain from left upper abdomen quadrant radiating to chest. BP 150/[address] Parker notified of patient having pain and reminded of patient's previous KUB. New orders given for nitro.
--- NOTE | 2017-12-23 02:14 | EKG12_ITS ---
Test Reason : CP Blood Pressure : / mmHG Vent. Rate : 070 BPM Atrial Rate : 070 BPM P-R Int : 200 ms QRS Dur : 116 ms QT Int : 416 ms P-R-T Axes : 040 -12 126 degrees QTc Int : 449 ms Normal sinus rhythm Low voltage QRS (limb leads) Poor R wave progression Nonspecific T wave abnormality Abnormal ECG Confirmed by PAUL LEONARD, GEOFF ([id number]), tape editor PUNEET VELASCO ([id number] on 12/25/2017 2:22:49 PM Referred By: Mikael Parker Confirmed By:GEOFF MILLER MD
--- NOTE | 2017-12-23 03:08 | NURSING ---
Nitro was given x 2 which patient had stated was effective, however patient calling out again stating that the pain is back and it is getting worse. Patient holding his abdomen but is very non specific about his pain. Dr. Parker notified orders given for mylanta 30 ml x 1.
[2017-12-23] MEDS: Mag Hydrox/Al Hydrox/Simeth 30 ML UDC PO (03:14)
[2017-12-23] MEDS: Acetaminophen 500 MG Tablet 1000 MG PO (05:01)
[2017-12-23] MEDS: Levothyroxine 75 MCG Tablet PO (05:02)
[2017-12-23] MEDS: Pantoprazole Sodium 20 MG Tablet PO (05:02)
[2017-12-23] MEDS: Nystatin Powder 15gm Bottle 1 APPLIC TOPICAL (05:06)
[2017-12-23] MEDS: Menthol/Lanolin/Calamine/Znox 113 GM Tube 1 APPLIC TOPICAL (05:07)
--- NOTE | 2017-12-23 10:22 | NURSING ---
Pt resting in bed with eyes closed. States his abdominal pain has improved. Refusing to take any scheduled medications at this time. Will continue to monitor.
[2017-12-23] MEDS: Magnesium Hydroxide 30 ML UDC PO (11:51)
--- NOTE | 2017-12-23 11:54 | NURSING ---
Pt still complaining of an upset stomach. Feels he may need to have a bowel movement. MOM given per PRN order. Refusing to take any other medications at this time. Will continue to monitor.
--- NOTE | 2017-12-23 14:52 | NURSING ---
wound photo: left knee
--- NOTE | 2017-12-23 14:54 | NURSING ---
Wound photo: right knee
--- NOTE | 2017-12-23 15:56 | NURSING ---
Port deaccessed prior to discharge. Patient tolerated well. Patient resting in bed with eyes closed.
== END 2017-12-23 16:15 | disposition skilled nursing facility (03) | DRG 948 ==
PROVIDERS: Admitting Provider Family Medicine Geriatric Medicine; Family Provider Internal Medicine; PCP Internal Medicine; Visit Provider Family Medicine Geriatric Medicine
DX: R53.81 Other malaise (principal); I50.22 Chronic systolic (congestive) heart failure; I13.0 Hypertensive heart and chronic kidney disease with heart failure and stage 1 through stage 4 chronic kidney disease, or unspecified chronic kidney disease; F32.9 Major depressive disorder, single episode, unspecified; E78.5 Hyperlipidemia, unspecified; E87.6 Hypokalemia; I95.1 Orthostatic hypotension; K21.9 Gastro-esophageal reflux disease without esophagitis; E03.9 Hypothyroidism, unspecified; I48.2 Chronic atrial fibrillation; I25.10 Atherosclerotic heart disease of native coronary artery without angina pectoris; J44.9 Chronic obstructive pulmonary disease, unspecified; E66.9 Obesity, unspecified; Z68.34 Body mass index [BMI] 34.0-34.9, adult; Z71.3 Dietary counseling and surveillance; Z86.718 Personal history of other venous thrombosis and embolism; I25.2 Old myocardial infarction; E11.22 Type 2 diabetes mellitus with diabetic chronic kidney disease; N18.3 Chronic kidney disease, stage 3 (moderate); G47.33 Obstructive sleep apnea (adult) (pediatric); Z95.0 Presence of cardiac pacemaker; Z95.1 Presence of aortocoronary bypass graft; I73.9 Peripheral vascular disease, unspecified; Z87.891 Personal history of nicotine dependence; Z23 Encounter for immunization; I51.3 Intracardiac thrombosis, not elsewhere classified; Z87.440 Personal history of urinary (tract) infections; S80.212D Abrasion, left knee, subsequent encounter; S80.211D Abrasion, right knee, subsequent encounter; X58.XXXD Exposure to other specified factors, subsequent encounter
CPT/HCPCS: 36415; 74018; 80048; 85025; 85610; 93005; 94640; 97110; 97116; 97163; 97166; 97530; 97535; 97802; J7040; 90670; A4216